=== PATIENT | female | born 2000 | race Caucasian/White ===

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

== ENCOUNTER 2018-08-05 11:12 | Emergency (ER) | payer MEDICAID, SELFPAY ==
[2018-08-05 11:13] VITALS: BP 115/66; PULSE 119; RESP 20; TEMP 36.8; O2SAT 96; BMI 21.9
[2018-08-05 11:19] VITALS: BP 108/65; PULSE 100; RESP 14; O2SAT 98
--- NOTE | 2018-08-05 11:52 | ED.DCSUM_ITS ---
- ER Visit Summary Date of Service: 08/05/18 Chief Complaint: Sore throat History of Present Illness: The patient is a 17 F who states that for the past 2 days she has had a sore throat. She notes subjective temperature and maximum routine at home of 99. She denies any cough. She denies any earache or runny nose. No she does note diarrhea or rashes. She does note generalized myalgias. She was seen in urgent care yesterday and states that she had a negative strep. She was prescribed Tylenol which she has not yet taken. She has been taking ibuprofen. She has been able to stay hydrated drinking water. Physical Examination: Afebrile vital signs are stable Gen: Well-nourished well-developed Head: Normocephalic atraumatic Eyes: Perrl EOMI ENT: TMs clear no rhinorrhea moist mucous membranes bilateral tonsillar enlargement erythema and exudate. No palatal petechiae. No retropharyngeal or peritonsillar abscess. No hot potato voice. No drooling. No trismus. Neck: Supple mildly tender anterior and posterior lymph nodes that are mobile and slightly enlarged. No JVD nontender CVS: Regular rate rhythm no murmurs normal S1-S2 Respiratory: No distress clear to auscultation bilaterally chest nontender Abdomen: Soft nontender nondistended normal bowel sounds no masses Back: Nontender Extremity: Nontender no edema Skin: Normal color no rash Neuro: alert orientated ?3 CN II-XII intact normal strength sensation reflexes gait cerebellar Psych: Normal affect normal mood Test Results: Throat culture was obtained. Emergency Department Course and Treatment: Patient will be started on azithromycin. I will give her a dose of Decadron here. Patient was advised if she is not improving she should be screened for mono. Return if worsening or concerns. Impression: 1. Acute exudative pharyngitis This note was generated with [employer] dictation software. It may contain incorrect words, spelling, and punctuation that were not noted in review of the chart prior to signing ED Disposition - Plan for ED Patient: Disposition: Home or Assisted Living Chief Complaint: Sore Throat Instructions: ED Strep Pharyngitis Poss Prescriptions: Azithromycin 500 mg PO DAILY 5 Days #5 tab Referrals: Emely Blanca MD [Primary Care Provider] - 1 Week if not improving
== END 2018-08-05 12:17 | disposition home or self-care (01) ==
LOC: ED 11:58
PROVIDERS: Emergency Provider Emergency Medicine
DX: J02.9 Acute pharyngitis, unspecified (principal); R59.0 Localized enlarged lymph nodes; R11.2 Nausea with vomiting, unspecified; M79.10 Myalgia, unspecified site
CPT/HCPCS: 87070; 87077; 99283

== ENCOUNTER 2019-03-31 00:34 | Emergency (ER) | payer MEDICAID, SELFPAY ==
[2019-03-31] VITALS (10 sets, daily range): BP systolic 113–127; BP diastolic 75–101; PULSE 70–111; RESP 13–18; TEMP 36.3–36.8; O2SAT 99–100; BMI 18.6
--- NOTE | 2019-03-31 00:41 | ED.VIS.GEN ---
History of Present Illness Chief Complaint: Overdose Informant: Patient Narrative: Walked into the emergency department. She stated that she abused Percocet and methamphetamines. She also stated that she abused marijuana. The patient has fleeting answers. She appears intoxicated. She is slow to respond. She answers yes to some questions and then no to the same questions later. She was dropped off by family member. Initially she stated that she was suicidal but then denied this. She has had drug abuse in the past. The patient is unsure why she is here. 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 Past Medical History - Allergies and Home Meds Allergies/Adverse Reactions: Allergies amoxicillin [Amoxicillin] Allergy (Verified 08/05/18 11:14) Unknown Primary Care Physician: Care Physician,No Primary [Primary Care Provider] - Prior records reviewed: Yes Past Medical History: - - Reviewed Surgical History: noncontributory Smoking Status: Never smoker Drugs: Marijuana, - - Methamphetamine, Percocet Review of Systems General: Denies: Chills, Fever, Sweats Eyes: Denies: Visual changes - bilaterally, Diplopia ENT: Denies: Rhinorrhea, Sore throat Cardiovascular: Denies: Chest pain, Palpitations Respiratory: Denies: Dyspnea, Cough, Dyspnea on exertion Gastrointestinal: Denies: Abdominal pain, Nausea, Vomiting, Diarrhea, Melena, Hematochezia Genitourinary: Denies: Dysuria, Hematuria, Frequency Musculoskeletal: Denies: Back pain, Extremity Pain Skin: Denies: Rash, Wounds Neurological: Denies: Headache, Weakness, Numbness Psych: Reports: - - see HPI Physical Exam Vital Signs/Narrative: Vital Signs Temp Pulse Resp BP Pulse Ox 03/31/19 00:36 97.4 F L 111 H 16 122/101 H 100 General: Well nourished, Well developed, No Acute Distress Head: Normocephalic, Atraumatic Eyes: Perrl, EOMI ENT: Moist mucous membranes, No rhinorrhea Neck: Supple, Nontender Cardiovascular: Regular rate, Regular rhythm, No murmurs Respiratory: No distress, CTA bilaterally, Chest nontender Abdomen: Soft, Nontender, Nondistended, Normal bowel sounds Back: Nontender, Normal Inspection Extremities: Nontender, No edema Skin: Normal color, No rash Neurological: Alert, Oriented x3, Cranial nerves II-XII grossly intact, Normal Strength, Normal Sensation Psychological: - - appears toxic aided and staring off into space. Answers questions intermittently. Negative for: Normal affect, Normal Mood Diagnostic/Tx/Re-eval - Medical Decision Making Patient given IV fluids. Lab work obtained. Lab work is positive for methamphetamines and cannabinoids. Opiates negative however. The patient remained difficult to interview throughout her stay. She was given 3 L of fluid. She was monitored in the emergency department. She remained quite sedate throughout her stay. She will be further evaluated when she wakes up. She will likely need a mental health consult. ED Disposition - Plan for ED Patient: Diagnosis: Drug intoxication with delirium Instructions: Drug Abuse Referrals: Care Physician,No Primary [Primary Care Provider] - [facility] [STAFF PHYSICIAN] -
[2019-03-31] MEDS: 0.9% Normal Saline 1,000 ML 1000 ML IV ×2 (00:56→02:15)
[2019-03-31 03:06] LABS: Absolute Lymphocyte Count 3.45 X10^3/ul (0.83-4.51); Absolute Neutrophil Count 5.9 X10^3/uL (2.0-7.7); Basophil# 0.03 X10^3/uL; Basophil% 0.3 % (0-1); Eosinophil# 0.11 X10^3/uL; Eosinophils% 1.1 % (0-5); Hematocrit 40.5 % (37-47); Hemoglobin 13.5 g/dl (12.0-15.0); Lymphocyte # 3.45 X10^3/ul (4.0); Lymphocyte % 33.3 % (19-41); Mean Corp Hgb Conc 33.3 g/gl (32-36); Mean Corpuscular Hgb 30.5 pg (27.0-32.0); Mean Corpuscular Volume 91.4 fL (81-99); Mean Platelet Vol. 10.7 fl (6.2-12.0); Monocyte# 0.86 X10^3/uL; Monocyte% 8.3 % (0-10); Neutrophil # 5.89 X10^3/uL (2.7-7.7); Neutrophil % 56.8 % (47-70); Platelet Count 294 K/mm3 (150-450); RBC Distribution Width CV 13.5 % (11.6-14.6); RBC Distribution Width SD 44.4 fl (35.1-43.9); Red Blood Count 4.43 M/mm3 (4.2-5.4); White Blood Count 10.4 K/mm3 (4.4-11.0)
[2019-03-31 03:09] LABS: POSITIVE COUNT NO; POSITIVE DIFFERENTIAL NO; POSITIVE MORPHOLOGY NO
--- NOTE | 2019-03-31 03:10 | ED.RN ---
PATIENT WAS INTO THE RESTROOM TWO TIMES TO TRY AND VOID AND SHE WAS UNABLE TO. DR. BOOKER WAS ASKED BY THIS NURSE IF PATIENT SHOULD BE STRAIGHT CATHED FOR HER URINE SPECIMEN AND HE SAID TO JUST GIVE HER A THIRD LITER OF NORMAL SALINE IF SHE HASN'T GONE YET.
[2019-03-31] MEDS: 0.9% Normal Saline 1,000 ML 999 ML IV (03:16)
[2019-03-31 04:06] LABS: Alcohol, Blood (Medical)-Serum < 3.0 mg/dL
[2019-03-31 04:07] LABS: Acetaminophen (Tylenol) Level < 2.0 ug/mL (10.0-30.0); Internal QC Validated? YES +Cl - CLEAR BKGD; Pregnancy, Serum, hCG Quali. NEGATIVE Negative
[2019-03-31 04:08] LABS: ALB/GLOB Ratio 1.1 RATIO (0.9-2.4); AST(SGOT) 14 U/L (15-37); Albumin, Serum 4.2 g/dL (3.2-5.0); Alkaline Phosphatase 64 U/L (45-117); BUN 13 mg/dL (7-18); BUN/Creat Ratio 14.3 RATIO (10-20); Calcium,Total 9.4 mg/dL (8.5-10.1); Creatinine, Serum 0.91 mg/dL (0.55-1.02); EST Glomerular Filtration Rate 84 mL/min (>60); Est Glom Filt Rate - Afr Amer 102 mL/min (>60); Estimated Creatinine Clearance 81.26 ml/min; Globulin 3.7 g/dL (2.2-4.2); Glucose 132 mg/dL (74-106); Protein, Total 7.9 g/dL (6.4-8.2)
[2019-03-31 04:09] LABS: Alanine Aminotransfer ALT/SGPT 17 U/L (13-56); Anion Gap 8 (5-15); Chloride 104 mmol/L (98-107); Potassium 3.7 mmol/L (3.5-5.1); Sodium Level 137 mmol/L (136-145)
[2019-03-31 04:30] LABS: Amphetamine Urine VISTA POSITIVE (<1000 ng/mL); Barbiturate Urine VISTA NEGATIVE (< 200 ng/mL); Benzodiazepine Urine VISTA NEGATIVE (< 200 ng/mL); Cocaine Urine VISTA NEGATIVE (< 300 ng/mL); Ecstacy Urine VISTA NEGATIVE (< 500 ng/mL); Methadone Urine VISTA NEGATIVE (< 300 ng/mL); PCP Urine VISTA NEGATIVE (< 25 ng/mL); THC Urine VISTA POSITIVE (< 50 ng/mL); Vista UDS pH Range 6
--- NOTE | 2019-03-31 04:35 | ED.RN ---
ALL LABS ARE BACK ON THE PATIENT. THIS NURSE ASKED DR. BOOKER IF HE WOULD LIKE US TO CALL CRISIS. HE SAID TO JUST WAIT TILL MORNING TO SEE IF SHE BECOMES MORE ALERT AND ABLE TO ANSWER QUESTIONS PRIOR TO BEING EVALUATED BY [facility].
--- NOTE | 2019-03-31 04:36 | ED.RN ---
PATIENT IS CURRENTLY SLEEPING. VITALS ARE STABLE. SITTER AT THE BEDSIDE.
--- NOTE | 2019-03-31 05:37 | ED.RN ---
DR. BOOKER MADE AWARE OF PATIENT HAVING SOME SHORT EPISODES OF TACHYCARDIA UP WARDS OF 130'S. HE SAID THAT HE WAS NOT WORRIED ABOUT THIS AT THIS TIME. HEART RATE RETURNS TO NORMAL SINUS RHYTHM. PATIENT IS CURRENTLY SLEEPING.
--- NOTE | 2019-03-31 10:05 | ED.RN ---
[facility] CALLED TO CHECK ON PATIENT. WILL CALL COME IN WHEN PATIENT I COHERENT
== END 2019-03-31 17:55 ==
PROVIDERS: Emergency Provider Emergency Medicine
DX: F15.121 Other stimulant abuse with intoxication delirium (principal); F12.121 Cannabis abuse with intoxication delirium; F19.121 Other psychoactive substance abuse with intoxication delirium
CPT/HCPCS: 80053; 80307; 80320; 80329; 84703; 85025; 96360; 96361; 99285; J7030; A4216; G0480

== ENCOUNTER 2019-09-05 01:06 | Emergency (ER) | payer MEDICAID, SELFPAY ==
[2019-03-31 00:36] VITALS: BMI 18.6
[2019-09-05 01:07] VITALS: BP 107/66; PULSE 100; RESP 17; TEMP 36.6; O2SAT 99; BMI 23.4
--- NOTE | 2019-09-05 01:20 | ED.VIS.GEN ---
History of Present Illness Chief Complaint: Sore Throat Informant: Patient Narrative: Presents with sore throat. Started earlier today. She is had mild frontal headache. She is been using Tylenol. Thinks she has strep throat. She has had this in the past. No fevers or chills. Hurts to swallow. 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 Denies: Rhinorrhea Cardiovascular: Denies: Chest pain, Palpitations Respiratory: Denies: Dyspnea, Cough, Dyspnea on exertion Gastrointestinal: Denies: Abdominal pain, Nausea, Vomiting, Diarrhea, Melena, Hematochezia Genitourinary: Denies: Dysuria, Hematuria, Frequency Musculoskeletal: Denies: Back pain, Extremity Pain Skin: Denies: Rash, Wounds Neurological: Denies: Headache, Weakness, Numbness Physical Exam Vital Signs/Narrative: Vital Signs Temp Pulse Resp BP Pulse Ox 09/05/19 01:07 97.8 F 100 17 107/66 99 General: Well nourished, Well developed, No Acute Distress Head: Normocephalic, Atraumatic Eyes: Perrl, EOMI ENT: Moist mucous membranes, No rhinorrhea, - - 2 Plus tonsils with redness bilateral Neck: Supple, Nontender Cardiovascular: Regular rate, Regular rhythm, No murmurs Respiratory: No distress, CTA bilaterally, Chest nontender Abdomen: Soft, Nontender, Nondistended, Normal bowel sounds Back: Nontender, Normal Inspection Extremities: Nontender, No edema Skin: Normal color, No rash Neurological: Alert, Oriented x3, Cranial nerves II-XII grossly intact, Normal Strength, Normal Sensation Psychological: Normal affect, Normal Mood Diagnostic/Tx/Re-eval - Medical Decision Making Given Omnicef and a dose of Decadron for tonsillitis. She will follow-up as an outpatient ED Disposition - Plan for ED Patient: Disposition: Home or Assisted Living Diagnosis: Tonsillitis Instructions: ED Tonsillitis Prescriptions: Cefdinir [Omnicef [equiv]] 300 mg PO Q12H #14 cap Prescription Printed Referrals: Amarilis Berry, CHAIR CAR DRIVER-C [Primary Care Provider] -
[2019-09-05] MEDS: dexAMETHasone 4 MG Tablet 8 MG PO (01:43)
== END 2019-09-05 01:43 | disposition home or self-care (01) ==
PROVIDERS: Emergency Provider Emergency Medicine; Family Provider Nurse Practitioner Family; PCP Nurse Practitioner Family
DX: J03.90 Acute tonsillitis, unspecified (principal)
CPT/HCPCS: 99283

== ENCOUNTER 2019-11-13 10:48 | Emergency (ER) | payer MEDICAID, SELFPAY ==
[2019-11-13 10:49] VITALS: BP 144/67; PULSE 98; RESP 17; TEMP 37; O2SAT 96; BMI 20.6
--- NOTE | 2019-11-13 11:07 | ED.VISSUMM ---
- ER Visit Summary Date of Service: 11/13/19 Chief Complaint: Left long finger swollen and painful History of Present Illness: The patient is a 19 F history of asthma and drug abuse including smoking marijuana and methamphetamines. Denies any IV drug abuse. Patient was seen in urgent care today. Yesterday she felt having swelling of the left long finger and has chronic rashes on the back of her hands which she thinks is from bleach from washing it. Denies any fever or chills. She absolutely denies IV drug abuse. Physical Examination: Appearing 19-year-old no acute distress. Vital signs are stable and afebrile. Temperature 98. H EENT exam unremarkable. Neck nontender. Lungs clear to auscultation bilaterally. Heart regular rhythm no murmur. Abdomen soft nontender. Extremities moves all 4. Neurovascular intact. The dorsum of both hands have rashes consistent with contact dermatitis. I do not see any track riojas. The left long finger is mildly swollen and tender. There is no flexor extensor tenosynovitis. She does bite her nails and I think this is a soft tissue infection from that. There is no lymphangitic streaking in the forearm and there is no axillary lymphadenopathy. The skin on the back of both her hands along with a contact dermatitis is dry. Neurologically she is awake alert with no focal motor deficits. Test Results: None Emergency Department Course and Treatment: Patient has a soft tissue infection of the left long finger secondary to biting her nails. She also has a contact dermatitis to both hands believed. She will be started on clindamycin. She has a stated penicillin allergy. She will be given a dose of clindamycin in the emergency department. Treatment Plan: Clindamycin 4 times daily. Return if worse. Follow-up to ensure this is improving. Disposition: dc Impression: Left long finger soft tissue infection secondary to nail biting Contact dermatitis dorsum of both hands This note was generated with [employer] dictation software. It may contain incorrect words, spelling, and punctuation that were not noted in review of the chart prior to signing ED Disposition - Plan for ED Patient: Referrals: Amarilis Berry NP-C [Primary Care Provider] -
--- NOTE | 2019-11-13 11:10 | ED.DEP ---
ED Disposition - Plan for ED Patient: Disposition: Home or Assisted Living Instructions: Contact Dermatitis, Cellulitis Prescriptions: Clindamycin [Cleocin] 300 mg PO 4X/DAY 10 Days #80 cap Prescription Printed Referrals: Amarilis Berry NP-C [Primary Care Provider] - 3-5 Days if not improving Additional Instructions: Rash on the back your hands is from contact dermatitis or reaction dry skin to chemicals and bleach. The left long finger is infected at the soft tissue infection due to biting her nails. Clindamycin 300 mg pills 4 times a day for 10 days. Follow-up to ensure this is improving or return emergency department if getting worse moving up in your forearm or you have a fever or looks a lot worse.
[2019-11-13] MEDS: Clindamycin HCl 150 MG Capsule 300 MG PO (11:27)
== END 2019-11-13 11:31 | disposition home or self-care (01) ==
PROVIDERS: Emergency Provider Emergency Medicine; PCP Nurse Practitioner Family; Referring Provider Nurse Practitioner Family
DX: L25.9 Unspecified contact dermatitis, unspecified cause (principal); L08.9 Local infection of the skin and subcutaneous tissue, unspecified; F15.10 Other stimulant abuse, uncomplicated; F12.10 Cannabis abuse, uncomplicated; J45.909 Unspecified asthma, uncomplicated
CPT/HCPCS: 99283

== ENCOUNTER 2019-12-20 12:57 | Emergency (ER) | payer MEDICAID, SELFPAY ==
[2019-12-20 12:57] VITALS: BP 111/67; PULSE 106; RESP 16; TEMP 37.2; BMI 20.8
[2019-12-20 13:26] VITALS: BP 113/74; PULSE 93; RESP 16; O2SAT 97
--- NOTE | 2019-12-20 13:53 | ED.VIS.GEN ---
History of Present Illness Chief Complaint: Sore Throat Informant: Patient Narrative: Patient states that she has had a runny nose and a cough for couple weeks but that is improving. Yesterday she developed a sore throat and throat swelling. She notes painful swallowing no change in voice. She also states that a recent sexual partner informed her that they have gonorrhea. While she does not have any symptoms of gonorrhea she would like to be tested. She notes subjective fevers. Past Medical History - Allergies and Home Meds Allergies/Adverse Reactions: Allergies amoxicillin [Amoxicillin] Allergy (Verified 12/20/19 12:59) Unknown Primary Care Physician: Amarilis Berry NP-C [Primary Care Provider] - Surgical History: noncontributory Smoking Status: Former smoker Review of Systems General: Reports: Chills, Fever, Subjective. Denies: Sweats Eyes: Denies: Visual changes - bilaterally, Diplopia ENT: Reports: Rhinorrhea, Sore throat Cardiovascular: Denies: Chest pain, Palpitations Respiratory: Denies: Dyspnea, Cough, Dyspnea on exertion Gastrointestinal: Denies: Abdominal pain, Nausea, Vomiting, Diarrhea, Melena, Hematochezia Genitourinary: Denies: Dysuria, Hematuria, Frequency Musculoskeletal: Denies: Back pain, Extremity Pain Skin: Denies: Rash, Wounds Neurological: Denies: Headache, Weakness, Numbness Physical Exam Vital Signs/Narrative: Vital Signs Temp Pulse Resp BP Pulse Ox 12/20/19 13:26 93 16 113/74 97 12/20/19 12:57 98.9 F 106 H 16 111/67 Inital Vital Signs reviewed: Yes General: Well nourished, Well developed, No Acute Distress Head: Normocephalic, Atraumatic Eyes: Perrl, EOMI ENT: Moist mucous membranes, No rhinorrhea, - - There is bilateral tonsillar enlargement with erythema and exudates. Neck: Supple, Nontender, No lymphadenopathy - There are anterior lymph nodes that are mildly tender and less than 1 cm and freely mobile Cardiovascular: Regular rate, Regular rhythm, No murmurs Respiratory: No distress, CTA bilaterally, Chest nontender Abdomen: Soft, Nontender, Nondistended, Normal bowel sounds Back: Nontender, Normal Inspection Extremities: Nontender, No edema Skin: Normal color, No rash Neurological: Alert, Oriented x3, Cranial nerves II-XII grossly intact, Normal Strength, Normal Sensation Psychological: Normal affect, Normal Mood Diagnostic/Tx/Re-eval - Medical Decision Making Throat culture will be obtained. Patient will be started on antibiotics. We will order a GC and chlamydia test that she does not have to wait for the results. If positive we will certainly call her. Patient is comfortable with this plan. ED Disposition - Plan for ED Patient: Disposition: Home or Assisted Living Diagnosis: Pharyngitis, STD exposure Instructions: PHARYNGITIS, Report Pending Prescriptions: Azithromycin 500 mg PO DAILY #5 tab Transmission Status: Pending to [facility] Referrals: Amarilis Berry, OUTBOUND SALES EXECUTIVE-C [Primary Care Provider] - As Needed
[2019-12-20] MEDS: dexAMETHasone 10 MG/ML Vial PO.IVFORM (14:17)
[2019-12-20 16:32] LABS: Chlamydia Trachomatis by PCR Negative (Negative); Probe Check PASS
[2019-12-20 16:38] LABS: Neisserai gonorrhoeae by PCR Positive (Negative)
--- NOTE | 2019-12-20 18:00 | ED.RN ---
THIS NURSE CONTACTED PT TO NOTIFY OF LAB RESULTS. PT INSTRUCTED TO RETURN FOR TREATMENT
== END 2019-12-20 14:19 | disposition home or self-care (01) ==
PROVIDERS: Emergency Provider Emergency Medicine; PCP Nurse Practitioner Family
DX: J02.9 Acute pharyngitis, unspecified (principal); R05 Cough; J34.89 Other specified disorders of nose and nasal sinuses; Z20.2 Contact with and (suspected) exposure to infections with a predominantly sexual mode of transmission; Z87.891 Personal history of nicotine dependence
CPT/HCPCS: 87070; 87077; 87491; 87591; 99282

== ENCOUNTER 2019-12-23 17:26 | Emergency (ER) | payer MEDICAID, SELFPAY ==
[2019-12-23 17:27] VITALS: BP 139/78; PULSE 139; RESP 18; TEMP 36.9; O2SAT 98; BMI 20.8
--- NOTE | 2019-12-23 17:49 | ED.DCSUM_ITS ---
History of Present Illness Chief Complaint: General Illness Detail of Chief Complaint: Wants treatment for gonorrhea and strep throat Informant: Patient Onset: Days Narrative: She presents with sore throat for the past 3 days. She was seen here on the and had a positive rapid strep. Prescription for Zithromax was sent to the pharmacy the patient has not picked it up. She also was seen that day for exposure to gonorrhea. Her test came back positive but she continues to have no symptoms. She reports some mild subjective fever. She denies dysuria or vaginal discharge. - Past Medical History (1) Depression with anxiety Status: Chronic Past Medical History - Allergies and Home Meds Allergies/Adverse Reactions: Allergies amoxicillin [Amoxicillin] Allergy (Verified 12/23/19 17:29) Unknown Primary Care Physician: Amarilis Berry NP-C [Primary Care Provider] - Prior records reviewed: Yes Surgical History: noncontributory Smoking Status: Former smoker Review of Systems General: Reports: Fever, Subjective. Denies: Chills Eyes: Denies: Visual changes - bilaterally ENT: Reports: Sore throat. Denies: Bilateral ear pain Cardiovascular: Denies: Chest pain Respiratory: Denies: Dyspnea, Cough Gastrointestinal: Denies: Abdominal pain, Nausea, Vomiting, Diarrhea Genitourinary: Denies: Dysuria, Hematuria, Frequency Musculoskeletal: Denies: Extremity Pain Skin: Denies: Rash Neurological: Denies: Headache Allergy: Denies: Uticaria Physical Exam Vital Signs/Narrative: Vital Signs Temp Pulse Resp BP Pulse Ox 12/23/19 17:27 98.4 F 139 H 18 139/78 H 98 Inital Vital Signs reviewed: Yes General: Well nourished, Well developed Head: Normocephalic ENT: Moist mucous membranes, - - 3+ tonsils with exudate noted on the left. Uvula midline. Neck: Supple, - - Bilateral cervical lymphadenopathy. Cardiovascular: Regular rate, Regular rhythm Respiratory: No distress, CTA bilaterally Abdomen: Soft, Nontender Extremities: Nontender Skin: Normal color Diagnostic/Tx/Re-eval - Medical Decision Making Test results from the were reviewed. Strep a is positive and gonorrhea is positive. She will receive Rocephin IM here. She has a documented allergy to amoxicillin, however has received Keflex in the past. She is also given Zithromax here. She now requests an antibiotic for her throat be sent to a different pharmacy. I will send clindamycin to [facility] for her. ED Disposition - Plan for ED Patient: Disposition: Home or Assisted Living Diagnosis: Gonorrhea, Strep throat Instructions: Strep Throat, CERVICITIS (STD), Treated Prescriptions: Clindamycin [Cleocin] 300 mg PO TID #60 cap Transmission Status: Sent to [facility] #30 Referrals: Amarilis Berry, BIN CLEANER-C [Primary Care Provider] -
[2019-12-23] MEDS: Azithromycin 250 MG Tablet 1000 MG PO (18:16)
[2019-12-23] MEDS: Ondansetron ODT 4 MG Tablet PO (19:00)
[2019-12-23] MEDS: Ceftriaxone 500 MG Vial 250 MG IM (19:04)
[2019-12-23 19:48] VITALS: RESP 18
== END 2019-12-23 19:51 | disposition home or self-care (01) ==
LOC: ED 18:02
PROVIDERS: Emergency Provider Emergency Medicine; PCP Nurse Practitioner Family
DX: J02.0 Streptococcal pharyngitis (principal); A54.9 Gonococcal infection, unspecified; Z87.891 Personal history of nicotine dependence
CPT/HCPCS: 96372; 99283

== ENCOUNTER 2020-01-04 11:45 | Observation (INO) | payer MEDICAID, SELFPAY ==
[2020-01-04 11:47] VITALS: BP 114/67; PULSE 119; RESP 18; TEMP 36.1; O2SAT 95; BMI 20.5
--- NOTE | 2020-01-04 12:05 | EKG12_ITS ---
Test Reason : ABD PAIN Blood Pressure : / mmHG Vent. Rate : 077 BPM Atrial Rate : 077 BPM P-R Int : 106 ms QRS Dur : 090 ms QT Int : 388 ms P-R-T Axes : -03 069 014 degrees QTc Int : 439 ms Sinus rhythm with short CA Nonspecific T wave abnormality Abnormal ECG Confirmed by ANDREW ISRAEL, MARKELL ([id number]), restaurant expeditor PÉREZ DEVLIN ([id number]) on 01/05/2020 1:39:01 PM Referred By: ALFONSO Confirmed By:MARKELL MORALES MD
--- NOTE | 2020-01-04 12:05 | CT_ITS ---
STUDY: CT ABDOMEN AND PELVIS WITH CONTRAST REASON FOR EXAM: Female, 19 years old. ABD PAIN X 1 WEEK JAUNDICE RADIATION DOSAGE (If Supplied By Facility): CTDIvol = ( 9.725 ) mGy, DLP = ( 333.33 ) mGycm TECHNIQUE: Transaxial images were obtained from the dome of the diaphragm to the symphysis pubis without oral contrast. IV 100mL Isovue-300 was administered. Sagittal and coronal images were reconstructed. Individualized dose optimization techniques were used for this CT. COMPARISON: None. FINDINGS: The visualized lung bases are unremarkable. The visualized portions of the heart are within normal limits. There is evidence of a periportal edema. Mild degree of gallbladder wall thickening. There is evidence of a pericholecystic fluid. Increased markings are seen in the surrounding fat. There is no intra of cholelithiasis on this examination. Correlation with ultrasound of the right upper quadrant is recommended. There is mild splenomegaly. Normal pancreas. Normal bilateral adrenal glands. Normal right kidney. Normal left kidney. Normal visualized stomach. Normal small intestine. Normal colon. The appendix is visualized and appears normal. Normal abdominal aorta. Normal inferior vena cava. Normal retroperitoneum. Normal urinary bladder. Minimal amount of free fluid is seen in the cul-de-sac. Follicles are seen in both ovaries. Normal abdominal wall. Normal osseous structures. CT/Abdomen/Pelvis W IV Cont ONLY IMPRESSION: Mild degree of periportal edema in the liver with evidence of a pericholecystic fluid and thickening of the gallbladder wall. Correlation with the ultrasound of the right upper quadrant is recommended for further evaluation. Electronically Signed: Dagoberto Saenz, at 13:30 EDT , Service support ,
--- NOTE | 2020-01-04 12:10 | ED.DCSUM_ITS ---
History of Present Illness Chief Complaint: Abd Pain Informant: Patient - Abdominal Pain/Flank Pain Onset: Days Context: Gradual Onset Location: [facility] Narrative: Patient is a 19-year-old female with history of methamphetamine abuse, asthma and recent treatment for gonorrhea presenting with jaundice. Patient states her family notes that she been looking more yellow over the past 2 days. Patient states she is been feeling itchy for this amount of time is also noticed that her bowel movements have been park aide in color. Patient notes for the past week she been having abdominal pain especially in her right upper quadrant. She states it was really bad about 4 days ago. The pain has since improved significantly. She has had decreased appetite and been eating and drinking less. She denies any diarrhea. She currently denies any abdominal pain. She denies any fever or chills. She denies any chest pain, shortness of breath or difficulty breathing. She denies any history of IV drug use. She denies any known history of hepatitis. She does not drink any significant alcohol. She last used methamphetamines about 1 month ago. She states she only ever either snorted or smoked it. She states she had mono in middle school. Past Medical History - Allergies and Home Meds Allergies/Adverse Reactions: Allergies amoxicillin [Amoxicillin] Allergy (Verified 01/04/20 11:47) NOT SURE, WAS A BABY Primary Care Physician: Amarilis Berry NP-C [Primary Care Provider] - Past Medical History: - - asthma Surgical History: noncontributory Lives: With Family Smoking Status: Former smoker Alcohol: Occasional Drugs: Marijuana, - - Meth Review of Systems General: Reports: Malaise. Denies: Chills, Fever, Sweats Eyes: Denies: Visual changes - bilaterally, Diplopia ENT: Denies: Rhinorrhea, Sore throat Cardiovascular: Denies: Chest pain, Palpitations Respiratory: Denies: Dyspnea, Cough, Dyspnea on exertion Gastrointestinal: Reports: Abdominal pain, Nausea, Constipation. Denies: Vomiting, Diarrhea, Melena, Hematochezia Genitourinary: Reports: - - No vaginal discharge or bleeding . Denies: Dysuria, Hematuria, Frequency Musculoskeletal: Denies: Back pain, Extremity Pain Skin: Reports: - - Yellow, itchy skin. Denies: Rash, Wounds Neurological: Denies: Headache, Weakness, Numbness Physical Exam Vital Signs/Narrative: Vital Signs Temp Pulse Resp BP Pulse Ox 01/04/20 11:47 96.9 F L 119 H 18 114/67 95 Inital Vital Signs reviewed: Yes General: Well nourished, Well developed, No Acute Distress Head: Normocephalic, Atraumatic Eyes: Perrl, EOMI, Scleral icterus ENT: Moist mucous membranes, No rhinorrhea, TM's clear Neck: Supple, Nontender Cardiovascular: Regular rate, Regular rhythm, No murmurs Respiratory: No distress, CTA bilaterally, Chest nontender Abdomen: Soft, Nontender, Nondistended, Normal bowel sounds, Hepatomegaly Back: Nontender, Normal Inspection Extremities: Nontender, No edema Skin: No rash, Jaundice Neurological: Alert, Oriented x3, Cranial nerves II-XII grossly intact, Normal Strength, Normal Sensation Psychological: Normal affect, Normal Mood Diagnostic/Tx/Re-eval CT: Abdomen and Pelvis Clinical Impression(s) from Imaging Studies Abdomen/Pelvis CT 01/04/20 12:05 IMPRESSION: Mild degree of periportal edema in the liver with evidence of a pericholecystic fluid and thickening of the gallbladder wall. Correlation with the ultrasound of the right upper quadrant is recommended for further evaluation. Electronically Signed: Dagoberto Saenz, at 13:30 EDT , Service support , Gallbladder Ultrasound 01/04/20 13:32 IMPRESSION: Contracted gallbladder with slightly thickened gallbladder wall. Electronically Signed: Dagoberto Saenz, at 14:49 EDT , Service support , Laboratory Data 01/04/20 01/04/20 01/04/20 11:57 11:57 11:57 WBC 8.5 RBC 4.77 Hgb 13.7 Hct 42.1 MCV 88.3 MCH 28.7 MCHC 32.5 RDW Std Deviation 49.9 H RDW Coeff of Jus 15.6 H Plt Count 354 MPV 10.9 Immature Gran % (Auto) 1.100 H Neut % (Auto) 56.0 Lymph % (Auto) 33.0 [place] % (Auto) 8.5 Eos % (Auto) 0.6 Baso % (Auto) 0.8 Absolute Neuts (auto) 4.8 Absolute Lymphs (auto) 2.82 Nucleated RBC % 0 Reactive Lymphocytes 1+ PT 14.2 INR 1.1 APTT 29.8 Sodium 134 L Potassium 3.7 Chloride 96 L Carbon Dioxide 32.0 Anion Gap 6 BUN 6 L Creatinine 0.68 Estim Creat Clear Calc 122.51 Est GFR (MDRD) Af Amer 139 Est GFR (MDRD) Non-Af 115 BUN/Creatinine Ratio 8.8 L Glucose 121 H Calcium 8.9 Total Bilirubin 7.80 H Direct Bilirubin 6.78 H AST 998 H ALT 1917 H Alkaline Phosphatase 369 H Total Protein 7.7 Albumin 3.1 L Globulin 4.6 H Lipase 133 Urine Color Urine Clarity Urine pH Ur Specific [place] Urine Protein Urine Glucose (UA) Urine Ketones Urine Occult Blood Urine Nitrite Urine Bilirubin Urine Urobilinogen Ur Leukocyte Esterase Urine RBC Urine WBC Ur Squamous Epith Cells Amorphous Sediment Urine Bacteria Urine Mucus Urine Test Urine Opiates Screen Urine Methadone Screen Ur Barbiturates Screen Ur Phencyclidine Scrn Ur Amphetamines Screen U Methamphetamin-MDMA U Benzodiazepines Scrn Urine Cocaine Screen U Cannabinoids Screen Ur Drug Screen Comment Monoscreen 01/04/20 01/04/20 01/04/20 11:57 11:57 11:57 WBC RBC Hgb Hct MCV MCH MCHC RDW Std Deviation RDW Coeff of Jus Plt Count MPV Immature Gran % (Auto) Neut % (Auto) Lymph % (Auto) [place] % (Auto) Eos % (Auto) Baso % (Auto) Absolute Neuts (auto) Absolute Lymphs (auto) Nucleated RBC % Reactive Lymphocytes PT INR APTT Sodium Potassium Chloride Carbon Dioxide Anion Gap BUN Creatinine Estim Creat Clear Calc Est GFR (MDRD) Af Amer Est GFR (MDRD) Non-Af BUN/Creatinine Ratio Glucose Calcium Total Bilirubin Direct Bilirubin AST ALT Alkaline Phosphatase Total Protein Albumin Globulin Lipase Urine Color Alpa Urine Clarity Sl. Cloudy Urine pH 6.0 Ur Specific [place] 1.020 Urine Protein 30 H Urine Glucose (UA) Normal Urine Ketones Negative Urine Occult Blood 10 H Urine Nitrite Negative Urine Bilirubin 6 H Urine Urobilinogen 8 H Ur Leukocyte Esterase 25 H Urine RBC 0-5 SEEN Urine WBC 0-5 SEEN Ur Squamous Epith Cells 0-5 SEEN Amorphous Sediment 1+ URATE Urine Bacteria 2+ Urine Mucus 0 SEEN Urine Test Negative Urine Opiates Screen Urine Methadone Screen Ur Barbiturates Screen Ur Phencyclidine Scrn Ur Amphetamines Screen U Methamphetamin-MDMA U Benzodiazepines Scrn Urine Cocaine Screen U Cannabinoids Screen Ur Drug Screen Comment Monoscreen Negative 01/04/20 11:57 WBC RBC Hgb Hct MCV MCH MCHC RDW Std Deviation RDW Coeff of Jus Plt Count MPV Immature Gran % (Auto) Neut % (Auto) Lymph % (Auto) [place] % (Auto) Eos % (Auto) Baso % (Auto) Absolute Neuts (auto) Absolute Lymphs (auto) Nucleated RBC % Reactive Lymphocytes PT INR APTT Sodium Potassium Chloride Carbon Dioxide Anion Gap BUN Creatinine Estim Creat Clear Calc Est GFR (MDRD) Af Amer Est GFR (MDRD) Non-Af BUN/Creatinine Ratio Glucose Calcium Total Bilirubin Direct Bilirubin AST ALT Alkaline Phosphatase Total Protein Albumin Globulin Lipase Urine Color Urine Clarity Urine pH Ur Specific [place] Urine Protein Urine Glucose (UA) Urine Ketones Urine Occult Blood Urine Nitrite Urine Bilirubin Urine Urobilinogen Ur Leukocyte Esterase Urine RBC Urine WBC Ur Squamous Epith Cells Amorphous Sediment Urine Bacteria Urine Mucus Urine Test Urine Opiates Screen NEGATIVE Urine Methadone Screen NEGATIVE Ur Barbiturates Screen NEGATIVE Ur Phencyclidine Scrn NEGATIVE Ur Amphetamines Screen NEGATIVE U Methamphetamin-MDMA NEGATIVE U Benzodiazepines Scrn NEGATIVE Urine Cocaine Screen NEGATIVE U Cannabinoids Screen POSITIVE H Ur Drug Screen Comment Monoscreen - Rhythm Strip Rhythm Strip: Sinus Rhythm Rate: 77 Ectopy: None - EKG Initial EKG Interpretation: Sinus Rhythm, - - Sinus rhythm at a rate of 77 [place] interval 106 QRS 90 QTc [address] segments - Medical Decision Making Patient is a 19-year-old female presenting with jaundice. Patient abdominal pain this last week but her pain is improved over the past 2 days. She denies any IV drug use or significant alcohol use. Patient does have an elevated direct bilirubinemia. Patient also has a significant transaminitis. Abdomen is relatively soft and nontender. CT of abdomen pelvis initially obtained which shows pericholecystic fluid as well as dilation of the hepatic venous system. Ultrasound is recommended. This is obtained which shows only very mildly thickened gallbladder wall however the gallbladder is contracted and no pericholecystic fluid. Normal common bile duct. Case is discussed initially w [facility] surgery on-call, Dr. Shields, feels that likely this is viral and not a surgical case. He does state that if there is further concern on the floor, medicine can consult Dr. Talbot. I will patient does have signs of inflammation of the liver she does not have laboratory findings consistent with liver failure. Discussed the case with Dr. Rashmi Grant who will admit for acute hepatitis. Patient is given a liter fluid in the emergency room. She is stable for the general medical floor at time of disposition. She is agreeable with disposition and plan. ED Disposition - Plan for ED Patient: Disposition: Acute Care Hospital [facility] Diagnosis: Acute hepatitis, Total bilirubin, elevated Referrals: Amarilis Berry, [employer] WORKER-C [Primary Care Provider] -
[2020-01-04 12:23] LABS: Mucous, Urine 0 SEEN /hpf (<or=2+)
[2020-01-04] MEDS: 0.9% Normal Saline 1,000 ML 1000 ML IV (12:24)
[2020-01-04] MEDS: Ondansetron 4 MG/2 ML Vial IV (12:24)
[2020-01-04 12:25] LABS: Absolute Lymphocyte Count 2.82 X10^3/uL (0.83-4.51); Absolute Neutrophil Count 4.8 X10^3/uL (2.0-7.7); Basophil# 0.07 X10^3/uL; Basophil% 0.8 % (0-1); Eosinophil# 0.05 X10^3/uL; Eosinophils% 0.6 % (0-5); Hematocrit 42.1 % (37-47); Hemoglobin 13.7 g/dL (12.0-15.0); Lymphocyte # 2.82 X10^3/ul (4.0); Mean Corp Hgb Conc 32.5 g/dL (32-36); Mean Corpuscular Hgb 28.7 pg (27.0-32.0); Mean Corpuscular Volume 88.3 fL (81-99); Mean Platelet Vol. 10.9 fl (6.2-12.0); Monocyte# 0.73 X10^3/uL; Monocyte% 8.5 % (0-10); NRBC Flagged by Analyzer 0 % (0-5); Neutrophil # 4.78 X10^3/uL (2.7-7.7); POSITIVE MORPHOLOGY YES; Platelet Count 354 K/mm3 (150-450); RBC Distribution Width CV 15.6 % (11.6-14.6); RBC Distribution Width SD 49.9 fl (35.1-43.9); Red Blood Count 4.77 M/mm3 (4.2-5.4); White Blood Count 8.5 K/mm3 (4.4-11.0)
[2020-01-04 12:27] LABS: Differential Indicated SCAN CRITERIA MET
[2020-01-04 12:28] LABS: Internal QC Validated? YES +Cl - CLEAR BKGD; Pregnancy, Urine Negative Negative
[2020-01-04 12:31] LABS: International Normalized Ratio 1.1; Prothrombin Time (Protime)PT. 14.2 SECONDS (11.7-14.9)
[2020-01-04 12:32] LABS: Partial Thromboplast Time 29.8 Seconds (24.1-36.2)
[2020-01-04 12:33] LABS: Color, Urine Amber (Yellow); Glucose, Dipstick Normal (Normal); Ketone-Dipstick Negative (Negative); Leukocyte Esterase-Dipstick 25 /ul (Negative); Nitrite-Dipstick Negative (Negative); Occult Blood-Urine 10 /ul (Negative); Protein-Dipstick 30 mg/dl (Negative); Urine Clarity Sl. Cloudy (Clear); Urine Urobilinogen 8 mg/dl (Normal)
[2020-01-04 12:44] LABS: AST(SGOT) 998 U/L (15-37); Alanine Aminotransfer ALT/SGPT 1917 U/L (13-56); Albumin, Serum 3.1 g/dL (3.2-5.0); Alkaline Phosphatase 369 U/L (45-117); Anion Gap 6 (5-15); BUN 6 mg/dL (7-18); BUN/Creat Ratio 8.8 RATIO (10-20); Bilirubin, Direct 6.78 mg/dL (0.00-0.30); Calcium,Total 8.9 mg/dL (8.5-10.1); Chloride 96 mmol/L (98-107); Creatinine, Serum 0.68 mg/dL (0.55-1.02); EST Glomerular Filtration Rate 115 mL/min (>60); Est Glom Filt Rate - Afr Amer 139 mL/min (>60); Estimated Creatinine Clearance 122.51 ml/min; Globulin 4.6 g/dL (2.2-4.2); Glucose 121 mg/dL (74-106); Lipase 133 U/L (73-393); Potassium 3.7 mmol/L (3.5-5.1); Protein, Total 7.7 g/dL (6.4-8.2); Sodium Level 134 mmol/L (136-145)
[2020-01-04 12:52] LABS: Red Blood Cells-Urine 0-5 SEEN /hpf (0-5); Urine Bilirubin Dipstick 6 mg/dL (Negative)
[2020-01-04 12:53] LABS: Amorphous Sediment 1+ URATE; Bacteria 2+ /hpf (None Seen); Squamous Epithelial Cells - UA 0-5 SEEN /hpf (5-10); White Blood Cells 0-5 SEEN /hpf (0-5)
[2020-01-04 12:56] LABS: Reactive Lymphocyte 1+
[2020-01-04 13:04] LABS: Internal QC Validated? YES +Cl - CLEAR BKGD; Monotest Negative (Negative)
[2020-01-04 13:15] LABS: Amphetamine Urine VISTA NEGATIVE (<1000 ng/mL); Barbiturate Urine VISTA NEGATIVE (< 200 ng/mL); Benzodiazepine Urine VISTA NEGATIVE (< 200 ng/mL); Cocaine Urine VISTA NEGATIVE (< 300 ng/mL); Ecstacy Urine VISTA NEGATIVE (< 500 ng/mL); Methadone Urine VISTA NEGATIVE (< 300 ng/mL); PCP Urine VISTA NEGATIVE (< 25 ng/mL); THC Urine VISTA POSITIVE (< 50 ng/mL); Vista UDS pH Range 6
--- NOTE | 2020-01-04 13:32 | US_ITS ---
STUDY: ABDOMINAL ULTRASOUND - RIGHT UPPER QUADRANT REASON FOR VISIT: Female, 19 years old RUQ PAIN TECHNIQUE: Ultrasound evaluation of the right upper quadrant was performed with real-time and static colin-scale imaging. TECHNICAL QUALITY: Adequate. COMPARISON: Comparison is made with prior CT scan of the pelvis done earlier in the day. FINDINGS: Liver: The liver measures 16.0 cm. There is normal echogenicity of the liver. The bile ducts are within normal limits. There is hepatic color flow. The direction of portal flow is hepatopetal. There is no demonstrated mass lesion. Gallbladder: There is a contracted gallbladder. The gallbladder wall is thickened and measures 4.0 mm. There is a negative sonographic Jung''s sign. There is no pericholecystic fluid. There are no gallstones. Common Bile Duct (C.B.D.): The common bile duct measures 3.1 mm. Pancreas: Normal size of the head, body and tail of the pancreas. There is normal echogenicity of the pancreas. There is no demonstrated pancreatic mass or cyst. Right Kidney: Normal size of the right kidney. The right kidney measures 10.8 cm x 5.7 cm by 4.4 cm. Normal renal cortex. The right cortex measures 1.9 cm. There is no demonstrated renal mass or cyst. There is no right hydronephrosis. US/Gallbladder IMPRESSION: Contracted gallbladder with slightly thickened gallbladder wall. Electronically Signed: Dagoberto Saenz, at 14:49 EDT , Service support ,
--- NOTE | 2020-01-04 15:08 | NURSING ---
DR RODGERS FOR DR AMADO
--- NOTE | 2020-01-04 15:18 | HP.PCM_ITS ---
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 (4) Depression with anxiety Status: Chronic (5) Former tobacco use Status: Chronic History of Present Illness Date of Admission: 01/04/20 Chief Complaint: Abdominal pain, jaundice The patient is a 19 y/o F w/ PMHx: Anxiety and Depression, History of Polysubstance abuse currently admitting to methampetamine snorted and smoked with denied IV drug abuse, Cannabis use, Former Tobacco use, Asthma who presents to the [facility] ED on 01/04/20 with history of recent treatment for gonorrhea with a one-week history of abdominal pain especially in the right upper quadrant more severe approximately 4 to 5 days prior with abnormal lightening of her stools as well as onset pruritus diffusely and yellowing of her skin over the last 48 hours with decreased appetite prompting family to encourage her to present to the ED. Patient does note that the abdominal pain has subsided over the last 2 to 3 days and she does still have nausea but no emesis and following Zofran in the ED is asking for food. Patient denies significant alcohol intake and again denies any IV drug abuse history. She notes last usage of methamphetamines was approximately 1 month prior and again she only snorts or smokes that she notes. Work-up in the ED included T 96.9, heart rate 119, BP 114/67, respiratory rate 18, 95% room air, CBC with WC 8.5, hemoglobin 13.7, platelet 354 with increased immature granulocytes, unremarkable coags, CMP with sodium 134, chloride 96, glucose 121, total bilirubin 7.80, direct bilirubin 6.78, AST/ALT 998/1917, alk phos 367, lipase 133, urinalysis with specific gravity 1.020, protein 30, occult blood 10, 8 bilirubin 6, urobilinogen 8, leukocyte esterase 25, RBC 0-5, WBC 0- 5, squamous epithelial cells 0-5, urine bacteria 2+, UDS with positive cannabis, negative mono screen, pending hepatitis panel, CT abdomen and pelvis with mild degree of periportal edema in the liver with evidence of a pericholecystic fluid and thickening with gallbladder wall, follow-up gallbladder ultrasound with contracted gallbladder with slightly thickened gallbladder wall. In the ED patient ministered normal saline and Zofran 4 mg IV x1. Past Medical History Past Medical History (Chronic Problems): Chronic Problems (Last Updated 06/03/18 @ 14:51 by Mirela De La Garza) Former tobacco use (Chronic) Drug abuse in remission (Chronic) Depression with anxiety (Chronic) Medical History: Medical History (Last Updated 06/03/18 @ 14:51 by Mirela De La Garza) History of pneumonia Z87.01 age of 1 History of substance abuse Z87.898 last use 04/09/18 Asthma J45.909 Allergies amoxicillin [Amoxicillin] Allergy (Verified 01/04/20 11:47) NOT SURE, WAS A BABY Home Medications: Ambulatory Orders Medication Instructions Recorded Clindamycin [Cleocin] 300 mg PO TID 01/04/20 Surgical History: no surgical history Psychiatric History: No pertinent psych hx 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 Alcohol: Sober - Patient notes that she had significant heavy alcohol intake from age [age] but has had nothing since. Drugs: Marijuana, - - Patient notes methamphetamine usage smoked and snorted, last usage 1 month prior, approximate half gram daily at least. - *Family History Maternal Family History: Family History (Last Updated 06/03/18 @ 14:52 by Mirela De La Garza) Mother Depression Substance abuse Brother Depression Grandfather Substance abuse History Items: - - Patient notes a maternal family history of depression and anxiety, substance abuse, notes her mother was shot when she was 12 years old. Paternal Family History: Family History (Last Updated 06/03/18 @ 14:52 by Mirela De La Garza) Mother Depression Substance abuse Brother Depression Grandfather Substance abuse History Items: - - Patient denies any market paternal family history including heart disease, diabetes or cancer. Review of Systems Constitutional: Reports: Anorexia, Malaise, Weakness, Fatigue. Denies: Chills, Fever, Weight Change HEENT: Denies: Head Aches, Sinus Congestion, Sinus Drainage Cardiovascular: Denies: Chest Pain, Palpitations Respiratory: Denies: Cough, Shortness of breath at rest, Sputum production Gastrointestinal: Reports: Abdominal Pain, Nausea. Denies: Vomiting Genitourinary: Denies: Dysuria Gynecological: Reports: - - Recent gonorrhea diagnosis but was asymptomatic. Musculoskeletal: Denies: Joint Pain, Joint Tenderness Skin: Denies: Rash, Wounds Neurological: Denies: Numbness, Tingling, Focal weakness Psychiatric: Reports: Anxiety, Depression. Denies: Homicidal Ideations, Suicidal Ideations Hematologic/ Lymphatic: Denies: Easy Bruising, Easy Bleeding VTE Information - Inpt Only VTE Present on Admission: No VTE Mechan Device Prophylaxis: None VTE Pharm Prophylaxis ordered?: No Reason prophylaxis not ordered:: Treatment Not Indicated Patient Problems: Active and Suspected Problems (Last Updated 06/03/18 @ 14:51 by Mirela De La Garza) Acute hepatitis (Acute) Total bilirubin, elevated (Acute) Subjective: Seated upright in ED bed, no acute distress, notes feeling improved following Zofran. Objective: Physical Examination: General: awake, alert, oriented x 3 and cooperative, seated upright in the ED bed, no acute distress, notes feeling improved following Zofran. Skin: Jaundiced color, scleral icterus, normal turgor, no cyanosis. HEENT: AT/NC, EOMI, PERRLA, moderately dry MM, no carotid bruits or JVD noted. Lungs: CTA bilaterally, moderate effort, mild decrease BL bases, no rales, ronchi or wheezing. Heart: Improved, regular rate and rhythm; no gallop, rub audible. Abdomen: soft, NTTP including right upper quadrant, ND, normal BS, no HSM. Extremities: no cyanosis, clubbing, or edema. Neurological: patient awake, alert, oriented x 3; cognitive function intact; pupils equally reactive to light and accomodation; cranial nerves II-XII grossly normal, moving all 4 extremities, no focal deficits, strength mildly global decreased. Psychiatric: affect appears fatigued otherwise normal, no acute evidence of depressive or anxiety feelings. - Physical Exam Vitals/I&O's: Vital Signs Temp Pulse Resp BP Pulse Ox 96.9 F L 119 H 18 114/67 95 01/04/20 11:47 01/04/20 11:47 01/04/20 11:47 01/04/20 11:47 01/04/20 11:47 Oxygen Delivery Method Room Air Weight: 130 lb 11.746 oz Body Mass Index (BMI) 20.5 Intake and Output for Last 24 Hours 01/02/20 01/03/20 01/04/20 23:59 23:59 23:59 Intake Total 1000 / 1000 Balance 1000 / 1000 Laboratory Results 01/04/20 11:57: WBC 8.5, RBC 4.77, Hgb 13.7, Hct 42.1, MCV 88.3, MCH 28.7, MCHC 32.5, RDW Std Deviation 49.9 H, RDW Coeff of Jus 15.6 H, Plt Count 354, MPV 10.9, Immature Gran % (Auto) 1.100 H, Neut % (Auto) 56.0, Lymph % (Auto) 33.0, [place] % (Auto) 8.5, Eos % (Auto) 0.6, Baso % (Auto) 0.8, Absolute Neuts (auto) 4.8, Absolute Lymphs (auto) 2.82, Nucleated RBC % 0, Reactive Lymphocytes 1+ 01/04/20 11:57: PT 14.2, INR 1.1, APTT 29.8 01/04/20 11:57: Sodium 134 L, Potassium 3.7, Chloride 96 L, Carbon Dioxide 32.0, Anion Gap 6, BUN 6 L, Creatinine 0.68, Estim Creat Clear Calc 122.51, Est GFR (MDRD) Af Amer 139, Est GFR (MDRD) Non-Af 115, BUN/Creatinine Ratio 8.8 L, Glucose 121 H, Calcium 8.9, Total Bilirubin 7.80 H, Direct Bilirubin 6.78 H, AST 998 H, ALT 1917 H, Alkaline Phosphatase 369 H, Total Protein 7.7, Albumin 3.1 L , Globulin 4.6 H, Lipase 133 01/04/20 11:57: Monoscreen Negative 01/04/20 11:57: Urine Test Negative 01/04/20 11:57: Urine Color Alpa, Urine Clarity Sl. Cloudy, Urine pH 6.0, Ur Specific [place] 1.020, Urine Protein 30 H, Urine Glucose (UA) Normal, Urine Ketones Negative, Urine Occult Blood 10 H, Urine Nitrite Negative, Urine Bilirubin 6 H, Urine Urobilinogen 8 H, Ur Leukocyte Esterase 25 H, Urine RBC 0-5 SEEN, Urine WBC 0-5 SEEN, Ur Squamous Epith Cells 0-5 SEEN, Amorphous Sediment 1+ URATE, Urine Bacteria 2+, Urine Mucus 0 SEEN 01/04/20 11:57: Urine Opiates Screen NEGATIVE, Urine Methadone Screen NEGATIVE, Ur Barbiturates Screen NEGATIVE, Ur Phencyclidine Scrn NEGATIVE, Ur Amphetamines Screen NEGATIVE, U Methamphetamin-MDMA NEGATIVE, U Benzodiazepines Scrn NEGATIVE, Urine Cocaine Screen NEGATIVE, U Cannabinoids Screen POSITIVE H, Ur Drug Screen Comment 01/04/20 12:25: Hepatitis A IgM Ab Pending, Hep Bs Antigen Pending, Hep B Core IgM Ab Pending, Hepatitis C Ab (EIA) Pending Assessment/Plan All Active Problems (Last Updated 06/03/18 @ 14:51 by Mirela De La Garza) Acute hepatitis (Acute) Total bilirubin, elevated (Acute) The patient is a 19 y/o F w/ PMHx: Anxiety and Depression History of Polysubstance abuse currently admitting to methampetamine snorted and smoked with denied IV drug abuse, Cannabis use, Former Tobacco use, Asthma who presents to the [facility] ED on 01/04/20 with history of recent treatment for gonorrhea with a one-week history of abdominal pain especially in the right upper quadrant more severe approximately 4 to 5 days prior with abnormal lightening of her stools as well as onset pruritus diffusely and yellowing of her skin over the last 48 hours although patient does note that her abdominal pain has completely subsided x2 to 3 days. 1. Acute Transaminitis, Hyperbilirubinemia with concurrent right upper quadrant abdominal pain: Admission work-up as noted with follow-up gallbladder ultrasound not severe appearing, general surgery was contacted per ED physician and reviewed case and felt less likely etiology with recommendation for ongoing alternate etiologies including possible hepatitis with hepatitis panel pending per ED. Will admit to the medical surgical floor, maintain n.p.o. status given discomfort, continue PRN pain and antiemetic regimen, trend CBC, CMP levels. If levels trending down and positive hepatitis would refer to GI at discharge. Will defer recurrent surgery evaluation but if any further surgical concerns would reconsult. 2. History of polysubstance abuse: Urine drug screen with only cannabis noted, admits to methamphetamine usage but notes only smoked and snorted. Case management consulted. 3. History of tobacco use: Encouraged continued tobacco cessation. 4. Chronic asthma: PRN albuterol, encourage head of bed, I-S. 5. Anxiety and depression: Onset following of her mother, history of polysubstance abuse associated, encourage outpatient follow-up. 6. DVT prophylaxis: Low risk encourage ambulation. Inpatient E&M: [id number] Init Hosp L3
--- NOTE | 2020-01-04 15:19 | NURSING ---
MED SURG WHITE HEPATITIS, ACUTE
[2020-01-04 15:32] VITALS: BP 117/75; PULSE 79; RESP 16; TEMP 36.8; O2SAT 100
[2020-01-04 16:16] VITALS: BP 108/68; PULSE 73; RESP 18; TEMP 36.6; O2SAT 98
[2020-01-04 16:17] VITALS: BMI 20.5
[2020-01-04 16:20] VITALS: BMI 20.5
[2020-01-04] MEDS: 0.9% Normal Saline 1,000 ML 125 ML IV (16:45)
[2020-01-04 17:10] VITALS: O2SAT 98
[2020-01-04 22:02] VITALS: BP 91/55; PULSE 101; RESP 16; TEMP 37.2; O2SAT 99
[2020-01-04] MEDS: Famotidine 20 MG Tablet PO (22:22)
[2020-01-04] MEDS: Clindamycin HCl 150 MG Capsule 300 MG PO (22:22)
[2020-01-05] MEDS: 0.9% Normal Saline 1,000 ML 125 ML IV ×2 (00:23→08:23)
[2020-01-05 02:30] VITALS: BP 115/64; PULSE 88; RESP 16; TEMP 36.9; O2SAT 97
[2020-01-05] MEDS: Clindamycin HCl 150 MG Capsule 300 MG PO (05:55)
[2020-01-05 06:06] LABS: HEPATITIS B SURFACE AG Negative (Negative); Hepatitis B Core AB IgM Negative (Negative)
[2020-01-05 06:06] LABS: Absolute Lymphocyte Count 2.84 X10^3/uL (0.83-4.51); Absolute Neutrophil Count 3.1 X10^3/uL (2.0-7.7); Basophil# 0.04 X10^3/uL; Basophil% 0.6 % (0-1); Differential Indicated SCAN CRITERIA MET; Eosinophil# 0.07 X10^3/uL; Eosinophils% 1.1 % (0-5); Hematocrit 35.6 % (37-47); Lymphocyte # 2.84 X10^3/ul (4.0); Lymphocyte % 42.6 % (19-41); Mean Corp Hgb Conc 33.7 g/dL (32-36); Mean Corpuscular Hgb 29.7 pg (27.0-32.0); Mean Corpuscular Volume 88.1 fL (81-99); Mean Platelet Vol. 10.6 fl (6.2-12.0); Monocyte# 0.58 X10^3/uL; Monocyte% 8.7 % (0-10); NRBC Flagged by Analyzer 0 % (0-5); Neutrophil # 3.08 X10^3/uL (2.7-7.7); Neutrophil % 46.2 % (47-70); POSITIVE MORPHOLOGY YES; Platelet Count 282 K/mm3 (150-450); RBC Distribution Width CV 15.9 % (11.6-14.6); RBC Distribution Width SD 50.6 fl (35.1-43.9); Red Blood Count 4.04 M/mm3 (4.2-5.4); White Blood Count 6.7 K/mm3 (4.4-11.0)
[2020-01-05 06:19] LABS: Differential Comment SCANNED
[2020-01-05 06:20] LABS: Atypical Lymphocyte RARE %
[2020-01-05 06:42] LABS: ALB/GLOB Ratio 0.7 RATIO (0.9-2.4); AST(SGOT) 771 U/L (15-37); Alanine Aminotransfer ALT/SGPT 1430 U/L (13-56); Albumin, Serum 2.5 g/dL (3.2-5.0); Alkaline Phosphatase 318 U/L (45-117); Anion Gap 5 (5-15); BUN 4 mg/dL (7-18); BUN/Creat Ratio 7.8 RATIO (10-20); Chloride 105 mmol/L (98-107); Creatinine, Serum 0.51 mg/dL (0.55-1.02); EST Glomerular Filtration Rate 161 mL/min (>60); Est Glom Filt Rate - Afr Amer 195 mL/min (>60); Estimated Creatinine Clearance 163.35 ml/min; Globulin 3.7 g/dL (2.2-4.2); Glucose 84 mg/dL (74-106); Protein, Total 6.2 g/dL (6.4-8.2); Sodium Level 139 mmol/L (136-145)
[2020-01-05 08:19] VITALS: BP 96/60; PULSE 88; RESP 18; TEMP 36.4; O2SAT 98
[2020-01-05] MEDS: Famotidine 20 MG Tablet PO (08:29)
--- NOTE | 2020-01-05 09:59 | CASEMGMT ---
Social Work Note Social Work Assessment Referral Date: 01/04/2020 Date of Assessment: 01/05/2020 Reason for consult: Substance abuse Informant: Personal Status: SW met with pt and introduced self and role at [facility]. Pt is alert and orientated x4. Pt states that she lives with her boyfriend and his family. Pt states she was previously independent with ADLs. Pt states she doesn't drive as she doesn't currently have a license. Pt states that she has much support from her boyfriend's family and also identifies her grandmother, cousins and brother as good support as well. Substance Abuse Hx: Pt states she has history of ETOH abuse, cigarette use and methamphetamine use. Pt states she has been clean from ETOH for years (Pt's H+P states she had drinking problems from the age of [age] but denied current use). Pt states she has been clean from methamphetamine use for about a month and per H+P pt only snorts or smokes methamphetamine, doesn't use it IV. Mental Health Hx: Pt states she has history of anxiety, depression, and PTSD. Pt states she used to see a counselor at [facility] but that counselor took a different position and is no longer seeing that counselor. Pt denied currently seeing any counselor. Pt states that she is in a good place right now and feels that she doesn't need to see a counselor at this time. Pt denied currently taking medications. Pt states she used to be on medications but didn't like the side effects and stopped taking the medications. Pt states that she was thinking of returning to [facility] at discharge but states she thinks she is going to wait until the Coronavirus is gone. Pt states last summer (Summer 2018) she had suicidal thoughts and was at [facility] in [place] for a week. Pt states one of her good friends hung himself in the basement of the home and that was tough for her. SW offered support for pt. Pt denied any current suicidal/homicidal thoughts/plans/ideations. Pt again states she is in a much better place emotionally and is doing well at this time. Pt plans on returning home to her boyfriends home at discharge. Pt denied any current needs at this time. Pt is aware of resources in the community including [facility] and [facility] if pt need additional support. Pt denied any current suicidal/homicidal thoughts/plans/ideations. Plan: Home [employer]
[2020-01-05 10:36] LABS: Hep C Antibodies <0.1 s/co ratio (0.0-0.9)
[2020-01-05 10:38] LABS: Hepatitis A IgM Antibody Positive (Negative)
--- NOTE | 2020-01-05 12:00 | PCM.DC ---
- Discharge Diagnoses Current Active Problems: Current Active and Chronic Problems Acute hepatitis (Acute) Total bilirubin, elevated (Acute) Former tobacco use (Chronic) You will use the following diet at home:: No restrictions Your food should be the consistency of: Regular Your liquids should be the consistency of: Regular/Thin Discharge Activity: Return to Normal Activity Weight Bearing Status: Full weight bearing Additional Instructions: Do not share eating utensils with anyone for the next 14 days. Do not have sex for the next 14 days. Avoid having people come into contact with your blood or body fluids for the next 14 days Allergies/Adverse Reactions: Allergies amoxicillin [Amoxicillin] Allergy (Verified 01/04/20 11:47) NOT SURE, WAS A BABY Medications to take at Discharge Cefdinir [Omnicef [equiv]] 600 mg PO DAILY #14 cap 01/05/20 proMETHazine tablet [Phenergan tablet] 12.5 - 25 mg PO Q6H PRN PRN #14 tab 01/05/20 The following prescriptions were given: Cefdinir [Omnicef [equiv]] 600 mg PO DAILY #14 cap Transmission Status: Pending to [facility] #30 proMETHazine tablet [Phenergan tablet] 12.5 - 25 mg PO Q6H PRN PRN #14 tab PRN Reason: Nausea Transmission Status: Pending to [facility] #30 Primary Care Physician: Amarilis Berry NP-C [Primary Care Provider] - Please follow up with your Primary Care Physician in: in one week-you need a liver profile test repeated Test Results: Test results from this visit will be discussed in further detail at your follow-up appointment, if applicable.
--- NOTE | 2020-01-05 15:52 | PCM.DC.SUM ---
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 Patient also complained of right upper quadrant abdominal discomfort over the past week. Patient denied any abdominal pain when she was evaluated in the emergency room. Evaluation in the emergency room included a CBC which was unremarkable, patient's liver enzymes were diffusely elevated with a bilirubin of 7.8, AST of 998, ALT of 1917, and alkaline phosphatase of 369. Tox screen was positive for cannabinoids, patient's urinalysis was remarkable for +2 bacteria, RBCs were 0-5, WBCs were 0-5. Nitrite was negative. CT of the abdomen was was obtained which showed a mild degree of larissa-portal edema in the liver with evidence of pericholecystic fluid and thickening of the gallbladder wall. Gallbladder ultrasound showed a contracted gallbladder with slightly thickened gallbladder wall. Her case was discussed with on-call surgery and it was felt that the patient had a viral hepatitis rather than a surgical case. Patient was admitted to [place] [address], hepatitis panel was obtained and resulted positive for hepatitis A. The following day, the patient was able to have an advancement of her diet without difficulty, she still complained of pruritus. On 01/05/2020, patient was seen and examined: On examination she appeared in good health and spirits, she does not appear to be in any distress. Vital signs as documented. Skin warm and dry and without overt rashes, patient had evidence of jaundice. Neck without JVD, thyroid appears normal, trachea is midline, neck is supple. Lungs clear, normal air movement was noted. Heart exam notable for regular rhythm, normal sounds and absence of murmurs, rubs or gallops. Abdomen unremarkable and without evidence of organomegaly, masses, or abdominal aortic enlargement, bowel sounds are present in all 4 quadrants, no abdominal tenderness was noted. Extremities nonedematous, no cyanosis was noted, no clubbing was noted. Neuro: Cranial nerves II through XII are grossly intact, no focal motor deficits were noted, sensation to light touch and pinprick is intact, motor exam 5/5 throughout. Psych: Patient is alert and oriented x3, she does not appear anxious or depressed, she does not appear agitated. Patient was discharged home in stable condition on 01/05/2020, she was cautioned not to allow people to contact her bodily fluids for the next 14 days. She was instructed to follow-up with her PCP in a week and have a repeat liver profile obtained. Further note: Patient recently had strep throat diagnosed but she did not take her prescribed antibiotic (Cleocin) as directed-she was noncompliant with her medication. I have elected to place her on 1 week of Omnicef. - Physical Exam Vitals/I&O's: Vital Signs Temp Pulse Resp BP Pulse Ox 97.5 F L 88 18 96/60 98 01/05/20 08:19 01/05/20 08:19 01/05/20 08:19 01/05/20 08:19 01/05/20 08:19 Oxygen Delivery Method Room Air Weight: 59.3 kg Body Mass Index (BMI) 20.5 Intake and Output for Last 24 Hours 01/03/20 01/04/20 01/05/20 23:59 23:59 23:59 Intake Total 1560 / 1560 3338.34 / 3338.34 Output Total 800 / 800 500 / 500 Balance 760 / 760 2838.34 / 2838.34 Laboratory Results 01/04/20 12:25: Hepatitis A IgM Ab Positive H, Hep Bs Antigen Negative, Hep B Core IgM Ab Negative, Hepatitis C Ab (EIA) <0.1 01/05/20 05:50: WBC 6.7, RBC 4.04 L, Hgb 12.0, Hct 35.6 L, MCV 88.1, MCH 29.7, MCHC 33.7, RDW Std Deviation 50.6 H, RDW Coeff of Jus 15.9 H, Plt Count 282, MPV 10.6, Immature Gran % (Auto) 0.800, Neut % (Auto) 46.2 L, Lymph % (Auto) 42.6 H, [place] % (Auto) 8.7, Eos % (Auto) 1.1, Baso % (Auto) 0.6, Absolute Neuts (auto) 3.1, Absolute Lymphs (auto) 2.84, Nucleated RBC % 0, Differential Comment SCANNED, Atypical Lymphocytes RARE 01/05/20 05:50: Sodium 139, Potassium 4.0, Chloride 105, Carbon Dioxide 29.0, Anion Gap 5, BUN 4 L, Creatinine 0.51 L, Estim Creat Clear Calc 163.35, Est GFR (MDRD) Af Amer 195, Est GFR (MDRD) Non-Af 161, BUN/Creatinine Ratio 7.8 L, Glucose 84, Calcium 8.0 L, Total Bilirubin 6.50 H, AST 771 H, ALT 1430 H, Alkaline Phosphatase 318 H, Total Protein 6.2 L, Albumin 2.5 L, Globulin 3.7, Albumin/Globulin Ratio 0.7 L Discharge Activity: Return to Normal Activity Weight Bearing Status: Full weight bearing Home Medications: Medications to take at Discharge Cefdinir [Omnicef [equiv]] 600 mg PO DAILY #14 cap 01/05/20 hydrOXYzine tablet [Atarax tablet] 10 - 20 mg PO 4X/DAY PRN PRN #40 tab 01/05/20 proMETHazine tablet [Phenergan tablet] 12.5 - 25 mg PO Q6H PRN PRN #14 tab 01/05/20 Following Prescrptions Were Given to Patient: hydrOXYzine tablet [Atarax tablet] 10 - 20 mg PO 4X/DAY PRN PRN #40 tab PRN Reason: Itching Transmission Status: Received by [facility] #30 Cefdinir [Omnicef [equiv]] 600 mg PO DAILY #14 cap Transmission Status: Received by [facility] #30 proMETHazine tablet [Phenergan tablet] 12.5 - 25 mg PO Q6H PRN PRN #14 tab PRN Reason: Nausea Transmission Status: Received by [facility] #30 Primary Care Physician: Amarilis Berry NP-C [Primary Care Provider] - Please follow up with your Primary Care Physician in: in one week-you need a liver profile test repeated Please Follow Up With: Jill Mccracken MD Disposition: Home Minutes spent on discharge:: 30 Patient Condition:: Stable Medical Necessity - Tobacco Use Smoking Status: Current some day smoker Tobacco Use: - Meaningful Use Info Meaningful Use Diagnoses (Choose all that apply): None applicable OBSV E&M: 73897 Observation care discharge
== END 2020-01-05 12:44 | disposition home or self-care (01) ==
LOC: ED 15:18 → MS3 15:42
PROVIDERS: Admitting Provider Family Medicine; Emergency Provider Emergency Medicine; PCP Nurse Practitioner Family; Visit Provider Internal Medicine
DX: B15.9 Hepatitis A without hepatic coma (principal); Z23 Encounter for immunization; F41.8 Other specified anxiety disorders; F19.11 Other psychoactive substance abuse, in remission; Z87.891 Personal history of nicotine dependence; J45.909 Unspecified asthma, uncomplicated; Z91.14 Patient's other noncompliance with medication regimen
CPT/HCPCS: 36415; 74177; 76705; 80048; 80053; 80074; 80076; 80307; 81001; 81025; 83690; 85025; 85610; 85730; 86308; 93005; 96361; 96374; 99218; 99251; 99284; 99406; J7030; Q9967; 90686; A4216; G0378; G0463; J2405

== ENCOUNTER 2020-01-26 11:07 | Emergency (ER) | payer MEDICAID, SELFPAY ==
[2020-01-26 11:09] VITALS: BP 130/63; PULSE 97; RESP 16; TEMP 36.8; O2SAT 98; BMI 19.6
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
[2020-01-26 11:34] VITALS: BP 130/63; PULSE 97; RESP 16; TEMP 36.8; O2SAT 98
[2020-01-26 11:45] VITALS: BP 130/63; PULSE 97; RESP 16; TEMP 36.8; O2SAT 98
[2020-01-26] MEDS: Clindamycin HCl 150 MG Capsule 300 MG PO (12:24)
[2020-01-26] MEDS: dexAMETHasone 10 MG/ML Vial PO.IVFORM (12:24)
== END 2020-01-26 12:27 | disposition home or self-care (01) ==
LOC: ED 12:01
PROVIDERS: Emergency Provider Emergency Medicine; PCP Nurse Practitioner Family
DX: J36 Peritonsillar abscess (principal); F15.11 Other stimulant abuse, in remission; J45.909 Unspecified asthma, uncomplicated; F17.200 Nicotine dependence, unspecified, uncomplicated
CPT/HCPCS: 99283

== ENCOUNTER 2020-01-28 04:46 | Emergency (ER) | payer MEDICAID, SELFPAY ==
[2020-01-28 04:47] VITALS: BP 96/75; PULSE 112; RESP 16; TEMP 36.4; O2SAT 100; BMI 20.5
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
[2020-01-28 05:36] VITALS: BP 102/65; PULSE 102; RESP 17; TEMP 36.3; O2SAT 99
[2020-01-28 05:37] VITALS: BP 108/69; PULSE 98; RESP 19; O2SAT 98
== END 2020-01-28 05:38 | disposition home or self-care (01) ==
LOC: ED 05:21
PROVIDERS: Emergency Provider Emergency Medicine; PCP Nurse Practitioner Family
DX: J36 Peritonsillar abscess (principal); B00.1 Herpesviral vesicular dermatitis; J45.909 Unspecified asthma, uncomplicated; F17.200 Nicotine dependence, unspecified, uncomplicated
CPT/HCPCS: 99283

== ENCOUNTER 2020-06-17 06:07 | Emergency (ER) | payer MEDICAID, SELFPAY ==
[2020-06-17 06:08] VITALS: BP 131/80; PULSE 92; RESP 16; TEMP 37.4; O2SAT 94; BMI 22.2
--- NOTE | 2020-06-17 06:25 | ED.VISSUMM ---
- ER Visit Summary Date of Service: 06/17/20 Chief Complaint: Sore throat History of Present Illness: The patient is a [address] Berry. She does not have an ENT. Patient reports that she has a sore throat that began yesterday. She describes it as an aching pain is 10 of 10 worsening to 10 currently. Is worsened by swallowing, talking, or cold. She is taken NSAIDs with no relief. She denies any fever or chills. She reports that she had a similar episode 4 months ago and was told to follow-up with an footwear sales leader and never did. Physical Examination: Vitals: Stable. Afebrile. General: Well-nourished and well-developed. Head: Normocephalic atraumatic. HEENT: There is moderate swelling of the left tonsil and it does appear cellulitic. However, there is no swelling of the soft palate. No uvular shift. No evidence of a peritonsillar abscess. She has a serous effusion of her left TM. Right TM is normal. Neck: Supple, no lymphadenopathy. No JVD. Nontender. Cardiovascular: Regular rate and rhythm. No murmurs. Respiratory: No respiratory distress. Clear to auscultation bilaterally. Abdominal: Soft, nontender, nondistended, normal bowel sounds. No guarding, rebound, or peritoneal signs. Back: Nontender. Extremities: Nontender, no edema. Skin: Normal color, no rash. Neurologic: Alert and oriented ?3. Cranial nerves II through XII are intact. Normal strength and sensation. Psych: Normal affect. Emergency Department Course and Treatment: Patient is allergic to amoxicillin. She was treated with clindamycin, dexamethasone, and Bonsall. Patient refused an IV for initial antibiotic. Treatment Plan: I discussed the patient that if she has increased swelling. Pain to the roof of her mouth. Or any other concerns she should return to the emergency department. She does understand that this could potentially develop into a peritonsillar abscess that would require surgical drainage. She will be discharged on clindamycin, prednisone, and Bonsall. Instructed to follow-up with Dr. Griffin in 2 days for another exam. Unfortunately we do not have an footwear sales leader flight control tower operator today so I was unable to speak with him. Disposition: To home in improved and stable condition. Impression: 1. Peritonsillar cellulitis on left. This note was generated with [employer] dictation software. It may contain incorrect words, spelling, and punctuation that were not noted in review of the chart prior to signing ED Disposition - Plan for ED Patient: Instructions: ED Peritonsillar Abscess Prescriptions: Clindamycin HCl [Cleocin] 300 mg PO Q6H #40 capsule Prednisone [Deltasone] 40 mg PO DAILY #10 tablet Hydrocodone Bitart/Apap 5-325 [Bonsall 5MG-325MG] 1 tablet PO Q4H PRN PRN 2 Days #10 tablet PRN Reason: Pain Referrals: Hansel Griffin MD [STAFF PHYSICIAN] - 2 Days
[2020-06-17] MEDS: Clindamycin HCl 150 MG Capsule 300 MG PO (06:31)
[2020-06-17] MEDS: dexAMETHasone 4 MG Tablet 10 MG PO (06:31)
[2020-06-17] MEDS: HYDROcodone Bitartrate/Apap 5/325 Tablet PO (06:32)
[2020-06-17 06:35] VITALS: RESP 18
== END 2020-06-17 06:47 | disposition home or self-care (01) ==
PROVIDERS: Emergency Provider Emergency Medicine; PCP Nurse Practitioner Family
DX: J36 Peritonsillar abscess (principal); J45.909 Unspecified asthma, uncomplicated
CPT/HCPCS: 99283

== ENCOUNTER → 2020-06-29 | Outpatient (CLI) | payer MEDICAID, SELFPAY ==
[2020-06-17 06:08] VITALS: BMI 22.2
== END | disposition home or self-care (01) ==
LOC: LABSPEC 11:40
PROVIDERS: PCP Nurse Practitioner Family; Referring Provider Otolaryngology; Visit Provider Otolaryngology
DX: J02.9 Acute pharyngitis, unspecified (principal)
CPT/HCPCS: 87070

== ENCOUNTER 2020-07-18 18:34 | Emergency (ER) | payer MEDICAID, SELFPAY ==
[2020-07-18 18:35] VITALS: BP 114/65; PULSE 119; RESP 14; TEMP 37.1; O2SAT 99; BMI 21.4
--- NOTE | 2020-07-18 19:02 | ED.DEP ---
ED Disposition - Plan for ED Patient: Instructions: ED Otitis Media Antibiotic Treatment Adult Prescriptions: Azithromycin [Zithromax Z-Enrrique] 250 mg PO UD #1 box Prescription Printed Referrals: Lg Humphreys MD [STAFF PHYSICIAN] -
--- NOTE | 2020-07-18 19:22 | ED.DCSUM_ITS ---
- ER Visit Summary Date of Service: 07/18/20 Chief Complaint: Right ear pain and decreased hearing History of Present Illness: The patient is a 19 F presenting with pain in her right ear as well as muffled/decreased hearing. She states this has been ongoing for the past 2 days. Denies fever. She states she uses Q-tips daily. Denies other complaints. Physical Examination: Vitals are stable. Patient is afebrile. Alert no acute distress. HEENT exam right TM mild erythema and bulging. No cerumen impaction. Neck is supple. Lungs are clear and equal bilaterally. Heart is regular rate and rhythm. Extremities are unremarkable. Skin is warm and dry. No focal neurologic deficit. Remainder of exam is unremarkable. Emergency Department Course and Treatment: She was given Zithromax prescription. Advised to follow-up with ENT as needed. Advised return to ED for worsening complaints. Disposition: Discharge home Impression: Right otitis media This note was generated with [employer] dictation software. It may contain incorrect words, spelling, and punctuation that were not noted in review of the chart prior to signing ED Disposition - Plan for ED Patient: Instructions: ED Otitis Media Antibiotic Treatment Adult Referrals: Lg Humphreys MD [STAFF PHYSICIAN] -
== END 2020-07-18 19:24 | disposition home or self-care (01) ==
LOC: ED 19:07
PROVIDERS: Emergency Provider Emergency Medicine; PCP Nurse Practitioner Family
DX: H66.91 Otitis media, unspecified, right ear (principal); J45.909 Unspecified asthma, uncomplicated
CPT/HCPCS: 99282

== ENCOUNTER 2020-08-23 14:35 | Emergency (ER) | payer MEDICAID, SELFPAY ==
[2020-08-23] VITALS (8 sets, daily range): BP systolic 120–124; BP diastolic 70–106; PULSE 101–167; RESP 18–24; TEMP 37.1–39.4; O2SAT 96–98; BMI 22.0
--- NOTE | 2020-08-23 14:45 | EKG12_ITS ---
Test Reason : Blood Pressure : / mmHG Vent. Rate : 139 BPM Atrial Rate : 139 BPM P-R Int : 098 ms QRS Dur : 072 ms QT Int : 282 ms P-R-T Axes : 026 072 015 degrees QTc Int : 429 ms Sinus tachycardia with short MT Otherwise normal ECG Confirmed by TRACIE ISRAEL, MIGUEL ([id number]), editorial project manager KIMBERLY VASQUEZ ([id number]) on 08/24/2020 11:10:43 AM Referred By: DK Confirmed By:MIGUEL HODGES MD
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
[2020-08-23] MEDS: Acetaminophen 500 MG Tablet 1000 MG PO (14:59)
--- NOTE | 2020-08-23 15:10 | RAD_ITS ---
STUDY: X-RAY CHEST REASON FOR EXAM: Female, 19 years old. FEVER, SOB FOR SEVERAL DAYS. TECHNIQUE: Single AP portable view of the chest. COMPARISON: Comparison is made with prior study dated 10/13/2017. FINDINGS: EKG electrodes are seen. The lungs are clear and expanded. There is no demonstrated pleural abnormality. Normal size heart. Normal mediastinum and colten. Normal visualized pulmonary arteries. Normal visualized aortic arch and descending thoracic aorta. Normal visualized thoracic spine. Normal visualized ribs, clavicles, and shoulders. There is no demonstrated abnormality of the visualized soft tissue structures of the upper abdomen. RAD/Chest 1 View (Portable) IMPRESSION: Normal x-ray examination of the chest. Electronically Signed: Dagoberto Saenz, at 15:22 EST , Service support ,
[2020-08-23 15:18] LABS: Absolute Lymphocyte Count 1.44 X10^3/uL (0.83-4.51); Basophil# 0.04 X10^3/uL; Basophil% 0.2 % (0-1); Eosinophil# 0.09 X10^3/uL; Eosinophils% 0.5 % (0-5); Hematocrit 41.5 % (37-47); Hemoglobin 13.5 g/dL (12.0-15.0); Lymphocyte # 1.44 X10^3/ul (4.0); Lymphocyte % 7.3 % (19-41); Mean Corp Hgb Conc 32.5 g/dL (32-36); Mean Corpuscular Hgb 29.9 pg (27.0-32.0); Mean Corpuscular Volume 91.8 fL (81-99); Monocyte# 1.93 X10^3/uL; Monocyte% 9.8 % (0-10); NRBC Flagged by Analyzer 0 % (0-5); Neutrophil % 81.3 % (47-70); POSITIVE DIFFERENTIAL YES; POSITIVE MORPHOLOGY YES; Platelet Count 252 K/mm3 (150-450); RBC Distribution Width CV 12.6 % (11.6-14.6); RBC Distribution Width SD 42.2 fl (35.1-43.9); Red Blood Count 4.52 M/mm3 (4.2-5.4); White Blood Count 19.7 K/mm3 (4.4-11.0)
[2020-08-23 15:26] LABS: Differential Indicated SCAN CRITERIA MET
[2020-08-23 15:30] LABS: Fibrinogen 672 mg/dl (203-444)
[2020-08-23 15:32] LABS: ALB/GLOB Ratio 0.8 RATIO (0.9-2.4); AST(SGOT) 18 U/L (15-37); Alanine Aminotransfer ALT/SGPT 61 U/L (13-56); Albumin, Serum 3.8 g/dL (3.2-5.0); Alkaline Phosphatase 68 U/L (45-117); Anion Gap 7 (5-15); BUN 10 mg/dL (7-18); BUN/Creat Ratio 12.9 RATIO (10-20); Calcium,Total 9.3 mg/dL (8.5-10.1); Chloride 94 mmol/L (98-107); Creatinine, Serum 0.78 mg/dL (0.55-1.02); EST Glomerular Filtration Rate 99 mL/min (>60); Est Glom Filt Rate - Afr Amer 120 mL/min (>60); Estimated Creatinine Clearance 110.95 ml/min; Globulin 4.6 g/dL (2.2-4.2); Glucose 135 mg/dL (74-106); Potassium 3.8 mmol/L (3.5-5.1); Protein, Total 8.4 g/dL (6.4-8.2); Sodium Level 129 mmol/L (136-145)
[2020-08-23 15:33] LABS: D-Dimer Quantitative (DVT/PE) 0.45 FEU/ug/m (0.27-0.49)
[2020-08-23 15:34] LABS: Lactic Acid 1.7 mmol/L (0.4-1.9)
[2020-08-23 16:04] LABS: Procalcitonin 0.14 ng/mL (0.00-0.09)
[2020-08-24 13:50] LABS: Pathologist Review Reviewed
== END 2020-08-23 18:23 | disposition home or self-care (01) ==
LOC: ED 15:10
PROVIDERS: Emergency Provider Emergency Medicine; PCP Nurse Practitioner Family
DX: R06.00 Dyspnea, unspecified (principal); M79.10 Myalgia, unspecified site; R05 Cough; R50.9 Fever, unspecified
CPT/HCPCS: 71045; 80053; 83605; 84145; 85025; 85379; 85384; 87040; 87633; 87635; 93005; 96360; 99284; J7030; A4216; U0002

== ENCOUNTER 2020-08-26 09:52 | Emergency (ER) | payer MEDICAID, SELFPAY ==
[2020-08-23 14:36] VITALS: BMI 22.0
[2020-08-26 09:53] VITALS: BP 100/58; PULSE 111; RESP 16; TEMP 36.2; O2SAT 97; BMI 21.9
--- NOTE | 2020-08-26 10:08 | CT_ITS ---
STUDY: CT ABDOMEN AND PELVIS WITHOUT CONTRAST REASON FOR EXAM: Female, 19 years old. Right flank pain x 2 weeks. Hx hepatitis, asthma. RADIATION DOSAGE (If Supplied By Facility): CTDIvol = ( 6.17 ) mGy, DLP = ( 325.01 ) mGycm TECHNIQUE: Transaxial images were obtained from the dome of the diaphragm to the symphysis pubis without oral contrast, and without intravenous contrast. Sagittal and coronal images were reconstructed. Individualized dose optimization techniques were used for this CT. COMPARISON: 01/04/2020 FINDINGS: The visualized lung bases are unremarkable. The visualized portions of the heart are within normal limits. Normal liver. Normal gallbladder and extrahepatic biliary system. Normal spleen. Normal pancreas. Normal bilateral adrenal glands. Tiny nonobstructing stone in the midsection right kidney. No hydronephrosis, ureteral stone, or ureteral dilatation. Normal left kidney. Normal visualized stomach. Normal small intestine. Normal colon. The appendix is visualized and appears normal. Normal abdominal aorta. Normal inferior vena cava. Normal retroperitoneum. Normal urinary bladder. Normal abdominal wall. Normal osseous structures. CT/Abdomen/Pelvis without Cont IMPRESSION: No acute abnormality. Tiny nonobstructing right renal stone. Electronically Signed: Luisito Burgos MD at 12:27 EST Tel , Service support ,
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
[2020-08-26] MEDS: Ketorolac 15 MG/ML Vial IV (11:00)
[2020-08-26] MEDS: Ondansetron 4 MG/2 ML Vial IV (11:00)
[2020-08-26 11:13] LABS: Mucous, Urine 0 SEEN /hpf (<or=2+)
[2020-08-26 11:15] LABS: Absolute Lymphocyte Count 1.53 X10^3/uL (0.83-4.51); Basophil# 0.03 X10^3/uL; Basophil% 0.2 % (0-1); Eosinophil# 0.02 X10^3/uL; Eosinophils% 0.2 % (0-5); Hematocrit 39.3 % (37-47); Hemoglobin 12.5 g/dL (12.0-15.0); Lymphocyte # 1.53 X10^3/ul (4.0); Lymphocyte % 12.7 % (19-41); Mean Corp Hgb Conc 31.8 g/dL (32-36); Mean Corpuscular Hgb 29.8 pg (27.0-32.0); Mean Corpuscular Volume 93.8 fL (81-99); Mean Platelet Vol. 11.1 fl (6.2-12.0); Monocyte# 1.44 X10^3/uL; Monocyte% 11.9 % (0-10); NRBC Flagged by Analyzer 0 % (0-5); Neutrophil # 8.96 X10^3/uL (2.7-7.7); Neutrophil % 74.3 % (47-70); Platelet Count 230 K/mm3 (150-450); RBC Distribution Width CV 12.9 % (11.6-14.6); RBC Distribution Width SD 44.6 fl (35.1-43.9); Red Blood Count 4.19 M/mm3 (4.2-5.4); White Blood Count 12.1 K/mm3 (4.4-11.0)
[2020-08-26 11:15] LABS: Color, Urine Straw (Yellow); Glucose, Dipstick Normal (Normal); Ketone-Dipstick Negative (Negative); Leukocyte Esterase-Dipstick 100 /ul (Negative); Nitrite-Dipstick Negative (Negative); Occult Blood-Urine 25 /ul (Negative); Protein-Dipstick 30 mg/dl (Negative); Urine Bilirubin Dipstick Negative (Negative); Urine Clarity Sl. Cloudy (Clear); Urine Urobilinogen Normal (Normal)
[2020-08-26 11:19] LABS: Internal QC Validated? YES +Cl - CLEAR BKGD; Pregnancy, Urine Negative Negative
[2020-08-26 11:22] LABS: Bacteria 2+ /hpf (None Seen); Squamous Epithelial Cells - UA 0-5 SEEN /hpf (5-10); White Blood Cells 10-25 SEEN /hpf (0-5)
[2020-08-26 11:23] LABS: Red Blood Cells-Urine 0-5 SEEN /hpf (0-5)
[2020-08-26 11:28] LABS: Anion Gap 5 (5-15); BUN 6 mg/dL (7-18); BUN/Creat Ratio 9.9 RATIO (10-20); Calcium,Total 9.4 mg/dL (8.5-10.1); Chloride 99 mmol/L (98-107); Creatinine, Serum 0.61 mg/dL (0.55-1.02); EST Glomerular Filtration Rate 131 mL/min (>60); Est Glom Filt Rate - Afr Amer 158 mL/min (>60); Estimated Creatinine Clearance 141.87 ml/min; Glucose 121 mg/dL (74-106); Potassium 3.5 mmol/L (3.5-5.1); Sodium Level 135 mmol/L (136-145)
[2020-08-26] MEDS: 0.9% Normal Saline 1,000 ML 999 ML IV (12:19)
[2020-08-26] MEDS: Smz/Tmp Ds Tablet 1 TABLET PO (13:06)
[2020-08-26 13:12] VITALS: BP 113/79; PULSE 107; RESP 17
--- NOTE | 2020-08-26 13:13 | ED.RN ---
IV DC'ED, CATHETER INTACT, SMALL GAUZE DRESSING PLACED. DISCHARGE INSTRUCTIONS GIVEN TO AND REVIEWED WITH PATIENT, PATIENT DENIES QUESTIONS OR CONCERNS AND VOICES UNDERSTANDING OF DISCHARGE INSTRUCTIONS. PT AMBULATES OUT OF ROOM WITHOUT DIFFICULTY.
== END 2020-08-26 13:13 | disposition home or self-care (01) ==
PROVIDERS: Emergency Provider Physician Assistant; PCP Nurse Practitioner Family
DX: N12 Tubulo-interstitial nephritis, not specified as acute or chronic (principal); N39.0 Urinary tract infection, site not specified; Z87.891 Personal history of nicotine dependence
CPT/HCPCS: 74176; 80048; 81001; 81025; 85025; 96361; 96374; 96375; 99283; J7030; A4216; J2405

== ENCOUNTER 2020-09-03 03:44 | Emergency (ER) | payer MEDICAID, SELFPAY ==
[2020-09-03 03:45] VITALS: BP 132/84; PULSE 112; RESP 16; TEMP 36.1; O2SAT 100; BMI 20.7
--- NOTE | 2020-09-03 04:06 | ED.DCSUM_ITS ---
- ER Visit Summary Date of Service: 09/03/20 Chief Complaint: [Suicidal ideation] History of Present Illness: The patient is a 20 F [presents to the emergency department via police escort. Patient states that a friend called the police on her tonight who claimed that patient broke into the house she was at.] Patient states that she did not break into the house but that her aunt let her in. Patient apparently told police she was having suicidal ideations and wanted to go to a psychiatric facility. Patient has been using methamphetamines. She denies alcohol use. Patient states that she is afraid to go to sleep because she has night terrors. Patient recently treated for urinary tract infection and states that she has bronchitis. Patient states she has had Covid negative test within the last 2 weeks. She denies any fevers. Patient does not have a plan on what she would do to harm herself. Physical Examination: [HEENT-PERRLA, EOMI. Cranial nerves II through XII grossly intact. TMs clear. Mucous membranes moist. No adenopathy. Cardiovascular-regular rate and rhythm without murmur or ectopy Lungs-clear to auscultation, chest wall stable without crepitus or subcu emphysema Abdomen-normoactive bowel sounds, soft, nontender, no rebound or rigidity, no peritoneal signs. Extremities-intact ?4, normal range of motion, normal pulses, atraumatic] Psych exam-patient admits to suicidal ideation. She denies homicidal ideation. She denies hallucinations. Patient does have flight of ideas. Patient has pressured speech. Test Results: [CBC with differential is normal. Chemistries unremarkable. hCG was negative. Toxicology screen positive for amphetamines as well as benzos and marijuana. Alcohol was negative.] Emergency Department Course and Treatment: [Patient will be evaluated by crisis in the department] Treatment Plan: [Pending evaluation by crisis. Care of patient turned over to morning physician awaiting evaluation by crisis and final disposition.] Disposition: [Pending] Impression: [Suicidal ideation Psychosis Illicit drug use] This note was generated with [employer] software. It may contain incorrect words, spelling, and punctuation that were not noted in review of the chart prior to signing ED Disposition - Plan for ED Patient: Referrals: Amarilis Berry WAREHOUSE FREIGHT HANDLER, WAREHOUSE FREIGHT HANDLER-C [Primary Care Provider] -
[2020-09-03 04:34] LABS: Absolute Lymphocyte Count 2.65 X10^3/uL (0.83-4.51); Absolute Neutrophil Count 4.9 X10^3/uL (2.0-7.7); Basophil# 0.07 X10^3/uL; Basophil% 0.8 % (0-1); Eosinophil# 0.13 X10^3/uL; Eosinophils% 1.5 % (0-5); Hematocrit 32.6 % (37-47); Hemoglobin 10.1 g/dL (12.0-15.0); Lymphocyte # 2.65 X10^3/ul (4.0); Lymphocyte % 31.5 % (19-41); Mean Corpuscular Hgb 29.3 pg (27.0-32.0); Mean Corpuscular Volume 94.5 fL (81-99); Mean Platelet Vol. 9.2 fl (6.2-12.0); Monocyte% 7.1 % (0-10); NRBC Flagged by Analyzer 0 % (0-5); Neutrophil # 4.92 X10^3/uL (2.7-7.7); Neutrophil % 58.6 % (47-70); Platelet Count 483 K/mm3 (150-450); RBC Distribution Width CV 13.3 % (11.6-14.6); RBC Distribution Width SD 46.5 fl (35.1-43.9); Red Blood Count 3.45 M/mm3 (4.2-5.4); White Blood Count 8.4 K/mm3 (4.4-11.0)
[2020-09-03 04:37] LABS: Anion Gap 6 (5-15); BUN 15 mg/dL (7-18); BUN/Creat Ratio 17.5 RATIO (10-20); Calcium,Total 9.2 mg/dL (8.5-10.1); Chloride 106 mmol/L (98-107); Creatinine, Serum 0.86 mg/dL (0.55-1.02); EST Glomerular Filtration Rate 88 mL/min (>60); Est Glom Filt Rate - Afr Amer 107 mL/min (>60); Estimated Creatinine Clearance 96.99 ml/min; Glucose 111 mg/dL (74-106); Potassium 3.7 mmol/L (3.5-5.1); Sodium Level 139 mmol/L (136-145)
[2020-09-03 04:40] LABS: Amphetamine Urine VISTA POSITIVE (<1000 ng/mL); Barbiturate Urine VISTA NEGATIVE (< 200 ng/mL); Benzodiazepine Urine VISTA POSITIVE (< 200 ng/mL); Cocaine Urine VISTA NEGATIVE (< 300 ng/mL); Ecstacy Urine VISTA NEGATIVE (< 500 ng/mL); Methadone Urine VISTA NEGATIVE (< 300 ng/mL); PCP Urine VISTA NEGATIVE (< 25 ng/mL); THC Urine VISTA POSITIVE (< 50 ng/mL); Vista UDS pH Range 5
[2020-09-03 04:43] LABS: Internal QC Validated? YES +Cl - CLEAR BKGD; Pregnancy, Serum, hCG Quali. NEGATIVE Negative
[2020-09-03 04:44] VITALS: RESP 17
[2020-09-03 04:51] LABS: Alcohol, Blood (Medical)-Serum < 3.0 mg/dL
--- NOTE | 2020-09-03 05:26 | ED.RN ---
PAGED MAYTE GOODRICH IS FIBERGLASS FABRICATOR
[2020-09-03 05:44] VITALS: RESP 15
[2020-09-03 06:00] VITALS: RESP 18
--- NOTE | 2020-09-03 06:22 | ED.RN ---
CRISIS CALLED AND SPEAKING WITH PATIENT AT THIS TIME
[2020-09-03 07:34] LABS: AST(SGOT) 22 U/L (15-37); Alanine Aminotransfer ALT/SGPT 49 U/L (13-56); Albumin, Serum 3.5 g/dL (3.2-5.0); Alkaline Phosphatase 65 U/L (45-117); Bilirubin, Direct 0.09 mg/dL (0.00-0.30); Globulin 3.9 g/dL (2.2-4.2); Protein, Total 7.4 g/dL (6.4-8.2)
[2020-09-03 11:10] VITALS: BP 134/68; PULSE 70; TEMP 36.7; O2SAT 97
--- NOTE | 2020-09-03 11:36 | CM.ED ---
Social Work Telephone call from Gabriela rojas. Patient has been accepted by [facility]. Medical team updated. Promise Stephen MSW, JENN
== END 2020-09-03 11:40 ==
LOC: ED 04:10
PROVIDERS: Emergency Medicine; Emergency Provider Emergency Medicine; PCP Nurse Practitioner Family
DX: R45.851 Suicidal ideations (principal); F29 Unspecified psychosis not due to a substance or known physiological condition; R05 Cough; F15.90 Other stimulant use, unspecified, uncomplicated; F12.90 Cannabis use, unspecified, uncomplicated; J45.909 Unspecified asthma, uncomplicated
CPT/HCPCS: 80048; 80076; 80307; 80320; 84703; 85025; 87426; 99285; G0480

== ENCOUNTER 2022-05-08 00:50 | Emergency (ER) | payer MEDICAID, SELFPAY ==
[2022-05-08 00:51] VITALS: BP 123/73; PULSE 85; RESP 16; TEMP 36.4; O2SAT 98; BMI 30.9
--- NOTE | 2022-05-08 05:41 | EDS_ITS ---
HPI History of Present Illness Chief Complaint: Ear Problem Narrative Narrative: I signed up for the patient but prior to my ability to get back to her room and evaluate her she left before being seen [facility] Medical History (Updated 08/27/20 @ 00:00 by Ghassan Salas) Asthma History of pneumonia History of substance abuse Allergy/AdvReac Type Severity Reaction Status Date / Time amoxicillin [Amoxicillin] Allergy NOT SURE, Verified 05/08/22 00:55 WAS A BABY Family History (Updated 06/03/18 @ 14:52 by Mirela De La Garza) Mother Depression Substance abuse Brother Depression Grandfather Substance abuse Social History (Updated 06/03/18 @ 14:54 by Mirela De La Garza) Smoking Status: Current every day smoker tobacco type: cigarettes and e- cigarettes Tobacco: How many years used: 4 alcohol intake: former year quit: 2015 substance use type: former substance user 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 use: 04/09/18 and methamphetamine what type of physical activity do you participate in: yoga, aerobics and weight training frequency: 1-2 times per week EXAM Physical Exam Const Vital Signs: 05/08/22 00:51 Temperature 97.6 F L Temperature Source Temporal Pulse Rate 85 Respiratory Rate 16 Blood Pressure 123/73 H Blood Pressure Mean 89 Pulse Ox 98 Oxygen Delivery Method Room Air Discharge Plan Triage Chief Complaint: Ear Problem ED Provider: Luis Enrique Bautista Dx/Rx/DC Orders Primary Care Provider: Amarilis Berry SHOE REPAIRMAN Disposition Disposition: LEFT WITHOUT BEING SEEN Discharge Date/Time: 05/08/22 01:47
== END 2022-05-08 01:47 | disposition left against medical advice (07) ==
LOC: ED 01:47
PROVIDERS: Emergency Provider Emergency Medicine; PCP Nurse Practitioner Family; Visit Provider Emergency Medicine
DX: Z53.21 Procedure and treatment not carried out due to patient leaving prior to being seen by health care provider (principal); F17.210 Nicotine dependence, cigarettes, uncomplicated; J45.909 Unspecified asthma, uncomplicated; F17.290 Nicotine dependence, other tobacco product, uncomplicated
CPT/HCPCS: 99281

== ENCOUNTER 2022-06-14 20:34 | Emergency (ER) | payer MEDICAID, SELFPAY ==
[2022-06-14 20:36] VITALS: BP 129/93; PULSE 90; RESP 18; TEMP 35.9; O2SAT 98; BMI 29.0
--- NOTE | 2022-06-14 20:42 | EDS_ITS ---
HPI HPI - URI History of Present Illness Chief Complaint: Sore Throat Detail of Chief Complaint: Sore throat Informant: patient Onset/Context/Timing Onset: Days Context: Sudden Onset Timing: Intermittent Quality: Pain Location: Throat Current Severity: Mild Maximum Severity: Moderate Worsened by: Swallowing, Eating Solids and Drinking Liquids Relieved by: Not Relieved By Tylenol or NSAIDs Associated Symptoms Associated Symptoms: Negative for Nasal Congestion, Headache, Sinus Pressure, Myalgias, Nausea, Vomiting, Diarrhea, Shortness of Breath, Chest Pain, Nonproductive cough, Hemoptysis or Productive Cough Narrative Narrative: Patient is a 20-year-old female presents with sore throat. She had a documented fever. She denies rhinorrhea or cough. No ill contacts. She denies headache. She denies ocular symptoms. Specifically denies photophobia. Denies neck pain or neck stiffness. Prior similar symptoms: No Recent Illness/Hospitalization: No ROS ROS ED Constitutional Constitutional ED: Reports fever(s); Denies chills, subjective, sweats or weight loss Eyes Eyes: Denies blurry vision, change in vision or diplopia ENT ENT ED: Reports sore throat; Denies ear pain or rhinorrhea Cardiovascular Cardiovascular: Denies chest pain, orthopnea, palpitations or paroxysmal nocturnal dyspnea Respiratory/Chest Respiratory/Chest: Denies cough, dyspnea, dyspnea on exertion, orthopnea or paroxysmal nocturnal dyspnea Neurologic Neurologic: Denies headache(s) Allergic/Immunologic Allergic/Immunologic ED: Denies mouth swelling or tongue swelling [facility] Medical History Asthma History of pneumonia History of substance abuse Allergy/AdvReac Type Severity Reaction Status Date / Time amoxicillin [Amoxicillin] Allergy NOT SURE, Verified 06/14/22 20:38 WAS A BABY Family History Mother Depression Substance abuse Brother Depression Grandfather Substance abuse Social History Smoking Status: Current every day smoker tobacco type: cigarettes and e- cigarettes Tobacco: How many years used: 4 alcohol intake: former year quit: 2015 substance use type: former substance user 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 use: 04/09/18 and methamphetamine what type of physical activity do you participate in: yoga, aerobics and weight training frequency: 1-2 times per week EXAM Physical Exam Const Vital Signs: 06/14/22 20:36 Temperature 96.6 F L Temperature Source Temporal Pulse Rate 90 Respiratory Rate 18 Blood Pressure 129/93 H Blood Pressure Mean 105 Pulse Ox 98 Oxygen Delivery Method Room Air Positive well nourished, well developed and obese General Appearance ED: well developed and NAD; Negative for pallor Nutritional Appearance: obese HEENT Reports moist mucous membranes HEENT Narrative: There is slight erythema the posterior pharynx without exudate. Uvula is midline. The left tonsil may be slightly larger than the right. There is no evidence of peritonsillar cellulitis or abscess. There is no dysphonia. There is no trismus. normocephalic and atraumatic Eyes PERRL and EOMs intact bilaterally General Eye ED: Negative for pale conjunctiva Neck no lymphadenopathy, supple, no meningeal signs and no JVD Neck Narrative: Trachea is midline. There is no inspiratory expiratory stridor. Resp normal respiratory effort and clear to auscultation bilaterally Cardio S1 normal heart sound, S2 normal heart sound and no murmurs Rate: regular rate Rhythm: regular rhythm Neuro oriented x3 and CN's II-XII intact bilaterally Sensorium / Orientation: alert Psych mental status grossly normal Skin General Skin Exam: Negative for jaundice or pallor Lesions: no lesions Rashes: no rashes MDM MDM MDM Narrative Medical decision making narrative: Patient has a Centor score of 2. Will obtain rapid strep. If positive will treat with erythromycin since she apparently has allergy to amoxicillin. Otherwise treatment will be symptomatic. Lab Data Attestation: I reviewed the patient's lab results. Lab results narrative: Rapid strep was negative. Discharge Plan Triage Chief Complaint: Sore Throat ED Provider: Wesly Davenport Dx/Rx/DC Orders Clinical Impression: Acute pharyngitis Instructions: ED Pharyngitis, Report Pending, ED Pharyngitis, Viral Primary Care Provider: Amarilis Berry NP Referrals: Amarilis Berry B[employer]T MACHINE OPERATOR, BOL[employer] MACHINE OPERATOR-C [Primary Care Provider] - 1 Week if not improving Activity Restrictions/Additional Instructions: 1. Salt water gargles 4-6 times a day. 2. Chloraseptic spray or Cepastat lozenges for throat discomfort as instructed on bottle/box Disposition Disposition: Home, Self Care
== END 2022-06-14 21:25 | disposition home or self-care (01) ==
PROVIDERS: Emergency Provider Emergency Medicine; PCP Nurse Practitioner Family; Visit Provider Emergency Medicine
DX: J02.9 Acute pharyngitis, unspecified (principal); F17.210 Nicotine dependence, cigarettes, uncomplicated; F17.290 Nicotine dependence, other tobacco product, uncomplicated; E66.9 Obesity, unspecified; Z68.29 Body mass index [BMI] 29.0-29.9, adult
CPT/HCPCS: 87880; 99282

== ENCOUNTER 2022-12-14 14:50 | Emergency (ER) | payer MEDICAID, SELFPAY ==
[2022-12-14 14:51] VITALS: BP 126/111; PULSE 105; RESP 18; TEMP 37.2; O2SAT 98; BMI 26.7
[2022-12-14 15:18] LABS: Mucous, Urine 0 SEEN /hpf (<or=2+)
--- NOTE | 2022-12-14 15:19 | ED.VIS.FEGU ---
HPI HPI - Female History of Present Illness Chief Complaint: Complaint Detail of Chief Complaint: . Flank pain. Informant: patient Bleeding Issue: Negative for Vaginal bleeding or Passing clots Maximum Severity: Spotting Associated Symptoms Associated Symptoms: Positive for Dysuria, Frequency and Urgency; Negative for Hematuria Narrative Narrative: 21-year-old female history of prior pyelonephritis. States since night she has had urinary tract symptoms and now the flank pain. No vomiting or diarrhea. No vaginal bleeding or discharge. Does not believe that does not know if she is or not. Denies any fever. She has had similar symptoms before. No gross hematuria. Prior similar symptoms: Yes Recent Illness/Hospitalization: No PFSH PFSH Medical History Asthma History of pneumonia History of substance abuse Home Medications cephalexin 500 mg capsule 500 mg PO Q6 10 days #40 CAPSULES 12/14/22 [Rx Last Taken Unknown] Allergy/AdvReac Type Severity Reaction Status Date / Time amoxicillin [Amoxicillin] Allergy NOT SURE, Verified 12/14/22 14:51 WAS A BABY Family History Mother Depression Substance abuse Brother Depression Grandfather Substance abuse Social History Smoking Status: Current every day smoker tobacco type: cigarettes and e-cigarettes Tobacco: How many years used: 4 alcohol intake: former year quit: 2015 substance use type: former substance user 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 Review of Systems ROS Unobtainable: Denies due to encephalopathy Constitutional Constitutional ED: Denies chills or fever(s) Eyes Eyes: Denies blurry vision ENT ENT ED: Denies ear pain Cardiovascular Cardiovascular: Denies chest pain Respiratory/Chest Respiratory/Chest: Denies cough or dyspnea Gastrointestinal Gastrointestinal: Reports nausea; Denies abdominal pain, constipation, diarrhea, melena or vomiting Genitourinary Genitourinary ED: Reports dysuria and urinary frequency; Denies hematuria Musculoskeletal Musculoskeletal: Denies arthralgias Integumentary Denies abscess Neurologic Neurologic: Denies headache(s) Psychiatric Psychiatric: Denies anxiety Endocrine Endocrinology: Denies heat intolerance Hematologic/Lymphatic Hematologic/Lymphatic: Denies easy bleeding Allergic/Immunologic Allergic/Immunologic ED: Denies mouth swelling or tongue swelling EXAM Physical Exam Narrative Exam Narrative: 22-year-old female vital signs stable afebrile. Patient clinically looks well. Is not septic or toxic. H EENT exam unremarkable. Moist membranes. Lungs clear to auscultation. Heart regular rhythm no murmur. Abdomen soft nontender normal bowel sounds no peritoneal signs. Back complaining of flank pain but no CVA tenderness. No signs of trauma or bruising. Moving all 4 extremities. Nontender no edema. Neurologically she is awake and alert. Const Vital Signs: 12/14/22 14:51 Temperature 98.9 F Temperature Source Temporal Pulse Rate 105 H Respiratory Rate 18 Blood Pressure 126/111 H Blood Pressure Mean 116 Pulse Ox 98 Oxygen Delivery Method Room Air Positive well nourished and well developed; Negative for obese, cachectic, contractures or unkempt General Appearance ED: well developed and NAD; Negative for unkempt, cachectic, contractures or odor of alcohol detected Nutritional Appearance: Negative for cachectic or obese HEENT Reports moist mucous membranes; Denies dry mucous membranes Negative for trauma or tenderness Mouth ED: No dry mucous membranes Mouth: No dry mucous membranes Eyes PERRL and EOMs intact bilaterally General Eye ED: Negative for pale conjunctiva or scleral icterus Neck no lymphadenopathy, supple and no JVD General: Negative for other Thyroid: Negative for tender Lymph Lymphatic: Negative for other Chest Wall inspection of chest normal and palpation of chest normal Chest: Negative for other Resp normal respiratory effort and clear to auscultation bilaterally Effort and Inspection: Negative for pain with movement Auscultation: Negative for rales, rhonchi or wheezes Cardio regular rate, regular rhythm, S1 normal heart sound, no murmurs and no JVD GI normal to inspection, nondistended, normoactive bowel sounds, soft to palpation, non-tender, non-distended and no masses Auscultation: normoactive bowel sounds Palpation: Negative for tender, guarding or rigid Back/Spine no CVA tenderness General Back: Negative for CVA tenderness Cervical Spine: Negative for cervical spine tenderness Thoracic Spine / Upper Back: Negative for thoracic spinal tenderness Lumbar Spine / Lower Back: Negative for lumbar spinal tenderness Sacrum: Negative for other Extremity normal to inspection and full ROM General Extremety ED: Negative for edema or tenderness General Extremity: Negative for edema Neuro oriented x3 and CN's II-XII intact bilaterally Sensorium / Orientation: alert, oriented to person and oriented to place; Negative for oriented to time, confused, lethargic or stuporous Motor Exam: strength 5/5 throughout Psych mental status grossly normal Appearance: Negative for unkempt Attitude: No agitated Speech: No other Mood & Affect: anxious; Negative for depressed or tearful Skin no rashes or lesions noted and no wounds General Skin Exam: Negative for jaundice Rashes: No rashes noted Trauma: Negative for other MDM MDM MDM Narrative Medical decision making narrative: 22-year-old female clinically I think she is urinary tract infection may have early pyelonephritis. She is afebrile. She does not look septic or toxic. She is not dehydrated. She will be treated with IV Rocephin. Toradol for pain. She has had a history of substance abuse in the past I do not think narcotics would be a good idea. Urinalysis is being obtained. Repeat exam patient is doing well at 3:50 PM. She and I discussed her urinalysis results. She is receiving a dose of IV Rocephin. She received Toradol for pain. She has a history of substance abuse. She will be instructed to use Tylenol Motrin for pain. Fluids and rest. Keflex 1 pill 4 times a day for 10 days and return if feeling worse. Follow-up with her primary care physician. Lab Data Attestation: I reviewed the patient's lab results. Lab results narrative: Urinalysis consistent with a urinary tract infection with 25-50 red cells. 25-50 white cells. 3+ bacteria. Urine culture will be sent. Urine test negative. Labs: Laboratory Results - last 24 hr 12/14/22 12/14/22 15:13 15:13 Urine Color Yellow Urine Clarity Cloudy Urine pH 7.0 Ur Specific [place] 1.010 Urine Protein 100 H Urine Glucose (UA) Normal Urine Ketones Negative Urine Occult Blood 250 H Urine Nitrite Negative Urine Bilirubin Negative Urine Urobilinogen Normal Ur Leukocyte Esterase 500 H Urine RBC 25-50 SEEN Urine WBC 25-50 SEEN Ur Squamous Epith Cells 0-5 SEEN Urine Bacteria 3+ Urine Mucus 0 SEEN Urine Test Negative Discharge Plan Triage Chief Complaint: Complaint ED Provider: Tremayne Quiñonez Dx/Rx/DC Orders Clinical Impression: UTI (urinary tract infection), Pyelonephritis Instructions: ED Pyelonephritis, Female (Adult) Prescriptions: New cephalexin 500 mg capsule 500 mg PO Q6 10 Days Qty: 40 0RF Primary Care Provider: Sofiya Bro Referrals: Sofiya Bro MD [Primary Care Provider] - 3-5 Days if not improving Activity Restrictions/Additional Instructions: Plenty of fluids and rest. Motrin and Tylenol for pain. You have a urinary tract infection it may have gone up and your kidneys. The antibiotic Keflex 1 pill 4 times a day for 10 days. Follow-up with your doctor if not improving return if worse. Try to get a dose of antibiotic in tonight before you go to bed. Disposition Disposition: Home, Self Care
[2022-12-14 15:21] LABS: Color, Urine Yellow (Yellow); Glucose, Dipstick Normal (Normal); Ketone-Dipstick Negative (Negative); Leukocyte Esterase-Dipstick 500 /ul (Negative); Nitrite-Dipstick Negative (Negative); Occult Blood-Urine 250 /ul (Negative); Protein-Dipstick 100 mg/dl (Negative); Urine Bilirubin Dipstick Negative (Negative); Urine Clarity Cloudy (Clear); Urine Urobilinogen Normal (Normal)
[2022-12-14] MEDS: Ketorolac 30 MG/ML Syringe IV (15:27)
[2022-12-14 15:35] LABS: White Blood Cells 25-50 SEEN /hpf (0-5)
[2022-12-14 15:36] LABS: Bacteria 3+ /hpf (None Seen); Red Blood Cells-Urine 25-50 SEEN /hpf (0-5); Squamous Epithelial Cells - UA 0-5 SEEN /hpf (5-10)
[2022-12-14 15:39] LABS: Internal QC Validated? YES +Cl - CLEAR BKGD; Pregnancy, Urine Negative Negative
[2022-12-14] MEDS: Ceftriaxone 1 GM/50 ML BAG IV (15:51)
== END 2022-12-14 16:52 | disposition home or self-care (01) ==
PROVIDERS: Emergency Provider Emergency Medicine; PCP Internal Medicine; Visit Provider Emergency Medicine
DX: N12 Tubulo-interstitial nephritis, not specified as acute or chronic (principal); F17.210 Nicotine dependence, cigarettes, uncomplicated; J45.909 Unspecified asthma, uncomplicated; F17.290 Nicotine dependence, other tobacco product, uncomplicated
CPT/HCPCS: 81001; 81025; 87086; 87088; 87186; 96365; 96375; 99283; J7050; A4216

== ENCOUNTER 2023-01-16 05:13 | Emergency (ER) | payer MEDICAID, SELFPAY ==
[2023-01-16 05:14] VITALS: BP 142/83; RESP 16; TEMP 36.3; O2SAT 100; BMI 25.8
[2023-01-16 05:36] LABS: Mucous, Urine 0 SEEN /hpf (<or=2+)
[2023-01-16 05:39] LABS: Color, Urine Yellow (Yellow); Glucose, Dipstick Normal (Normal); Ketone-Dipstick Negative (Negative); Leukocyte Esterase-Dipstick 500 /ul (Negative); Nitrite-Dipstick Positive (Negative); Occult Blood-Urine 150 /ul (Negative); Protein-Dipstick 30 mg/dl (Negative); Specific Gravity, Urine 1.015 (1.002-1.030); Urine Clarity Cloudy (Clear); Urine Urobilinogen 8 mg/dl (Normal)
[2023-01-16 05:41] LABS: Urine Bilirubin Dipstick 3 mg/dL (Negative)
[2023-01-16 05:42] LABS: Internal QC Validated? YES +Cl - CLEAR BKGD; Pregnancy, Urine Negative Negative
[2023-01-16 05:47] LABS: Bacteria 4+ /hpf (None Seen); Red Blood Cells-Urine 10-25 SEEN /hpf (0-5); Squamous Epithelial Cells - UA 0-5 SEEN /hpf (5-10); White Blood Cells >100 SEEN /hpf (0-5)
[2023-01-16 05:48] LABS: Amorphous Sediment 2+
--- NOTE | 2023-01-16 06:07 | EX.ED.DYSGE1 ---
HPI History of Present Illness Chief Complaint: Complaint Narrative Narrative: Patient is a 22-year-old female who states she was seen roughly 1 month ago secondary to dysuria and found to have a urinary tract infection. She states she was placed on an antibiotic that she had to take 4 times a day. She states that because of the recurrent nature of the antibiotic she missed multiple doses. She states she is unsure if she ever got truly better from the previous infection. She states now in the last 1 to 2 days she has had urinary frequency urgency and dysuria. She is concerned for repeat UTI. She denies any vaginal discharge or concern for STD or [facility] Medical History Asthma History of pneumonia History of substance abuse Home Medications phenazopyridine 200 mg tablet (Pyridium) 200 mg PO TID 2 days #6 tabs 01/16/23 [Rx Last Taken Unknown] quetiapine 300 mg tablet (Seroquel) 300 mg PO DAILY 01/16/23 [History Last Taken Unknown] sulfamethoxazole 800 mg-trimethoprim 160 mg tablet (Bactrim DS) 1 tab PO BID 7 days #14 tabs 01/16/23 [Rx Last Taken Unknown] Allergy/AdvReac Type Severity Reaction Status Date / Time amoxicillin [Amoxicillin] Allergy NOT SURE, Verified 01/16/23 05:17 WAS A BABY Family History Mother Depression Substance abuse Brother Depression Grandfather Substance abuse Social History Smoking Status: Current every day smoker tobacco type: cigarettes and e-cigarettes Tobacco: How many years used: 4 alcohol intake: former year quit: 2016 substance use type: former substance user 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 use: 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/18 and methamphetamine what type of physical activity do you participate in: yoga, aerobics and weight training frequency: 1-2 times per week ROS ROS ED Constitutional Constitutional ED: Denies chills or fever(s) ENT ENT ED: Denies sore throat Cardiovascular Cardiovascular: Denies chest pain Respiratory/Chest Respiratory/Chest: Denies cough or dyspnea Gastrointestinal Gastrointestinal: Denies abdominal pain, diarrhea, nausea or vomiting Genitourinary Genitourinary ED: Reports dysuria and urinary frequency Musculoskeletal Musculoskeletal: Denies back pain Integumentary Denies rash Neurologic Neurologic: Denies headache(s) Hematologic/Lymphatic Hematologic/Lymphatic: Denies easy bleeding or easy bruising EXAM Physical Exam Const Vital Signs: 01/16/23 05:14 Temperature 97.3 F L Temperature Source Temporal Respiratory Rate 16 Blood Pressure 142/83 H Blood Pressure Mean 102 Pulse Ox 100 Oxygen Delivery Method Room Air Positive well nourished and well developed General Appearance ED: well developed Eyes PERRL and EOMs intact bilaterally Neck supple Resp normal respiratory effort and clear to auscultation bilaterally Cardio regular rate and regular rhythm GI non-distended GI Narrative: Slight suprapubic tenderness with palpation but no voluntary guarding or rigidity Auscultation: normoactive bowel sounds Palpation: soft Back/Spine no CVA tenderness Extremity normal to inspection Neuro oriented x3 and CN's II-XII intact bilaterally Sensorium / Orientation: alert Psych mental status grossly normal Skin no rashes or lesions noted MDM MDM MDM Narrative Medical decision making narrative: Patient arrived to the ER afebrile and in no acute distress. Her constellation of symptoms is most consistent with recurrent urinary tract infection. As she is not febrile or having CVA pain concern for systemic infection such as urosepsis or acute pyelonephritis is low. Also she denied vaginal discharge or concern for STD so I have low concern for pelvic inflammatory disease or a STD as a cause of her symptoms. A UA was obtained and does show +4 bacteria with greater than 100 white cells consistent with infection. Her culture from 1 month ago was reviewed and it was sensitive to Bactrim and as patient had a hard time taking the antibiotic multiple times a day we will use this antibiotic because it is only necessary to take twice a day. Based on the patient's symptoms and worsening urine sample she will be given a shot of Rocephin in the ER. However as she has no signs of urosepsis or pyelonephritis or concern for PID she does not need further evaluation and is otherwise safe for discharge History & Record Review Discussion w/independent historian: Patient and Significant other Lab Data Attestation: I reviewed the patient's lab results. Labs: Laboratory Results - last 24 hr 01/16/23 05:30 Urine Color Yellow Urine Clarity Cloudy Urine pH 8.0 Ur Specific [place] 1.015 Urine Protein 30 H Urine Glucose (UA) Normal Urine Ketones Negative Urine Occult Blood 150 H Urine Nitrite Positive H Urine Bilirubin 3 H Urine Urobilinogen 8 H Ur Leukocyte Esterase 500 H Urine RBC 10-25 SEEN Urine WBC >100 SEEN Ur Squamous Epith Cells 0-5 SEEN Amorphous Sediment 2+ Urine Bacteria 4+ Urine Mucus 0 SEEN Urine Test Negative Discharge Plan Triage Chief Complaint: Complaint ED Provider: Luis Enrique Bautista Dx/Rx/DC Orders Clinical Impression: Urinary tract infection, Former tobacco use, Depression with anxiety Instructions: Urinary Tract Infections in Women Prescriptions: New sulfamethoxazole-trimethoprim [Bactrim DS] 800-160 mg tablet 1 tab PO BID 7 Days Qty: 14 0RF phenazopyridine [Pyridium] 200 mg tablet 200 mg PO TID 2 Days Qty: 6 0RF No Action quetiapine [Seroquel] 300 mg Tablet 300 mg PO DAILY Primary Care Provider: Sofiya Bro Referrals: Sofiya Bro MD [Primary Care Provider] - Activity Restrictions/Additional Instructions: Please take the antibiotic as directed to help resolve your urinary tract infection. If you have worsening of symptoms or any further concerns please return to the hospital for repeat evaluation Disposition Disposition: Home, Self Care
[2023-01-16] MEDS: Ceftriaxone 1 GM Vial IM (06:18)
[2023-01-16 06:23] VITALS: BP 135/68; PULSE 72; RESP 18; O2SAT 98
== END 2023-01-16 06:31 | disposition home or self-care (01) ==
PROVIDERS: Emergency Provider Emergency Medicine; PCP Internal Medicine; Visit Provider Emergency Medicine
DX: N39.0 Urinary tract infection, site not specified (principal); F15.90 Other stimulant use, unspecified, uncomplicated; Z87.891 Personal history of nicotine dependence; F41.8 Other specified anxiety disorders
CPT/HCPCS: 81001; 81025; 87077; 87086; 87088; 87186; 96372; 99282

== ENCOUNTER 2023-03-12 16:36 | Emergency (ER) | payer MEDICAID, SELFPAY ==
[2023-03-12 16:37] VITALS: BP 130/99; PULSE 105; RESP 17; TEMP 36.2; O2SAT 100; BMI 22.5
--- NOTE | 2023-03-12 18:17 | EDS_ITS ---
HPI HPI - GI History of Present Illness Chief Complaint: Nausea/Vomiting Narrative Narrative: 2-year-old female presenting with nausea/vomiting. She states she feels like her kidneys are hurting earlier in the day but now they know her anymore. Patient states he has a history of kidney infections. She denies urinary complaints however. Patient states she started vomiting today and has not been able hold anything down. No cough or shortness of breath. Patient did not check her temperature but she took ibuprofen yesterday and believes she started sweating and a fever broke. Patient has not taken anything for fever today and she has been afebrile. She denies constipation or diarrhea. She does admit to chills. [facility] Medical History Asthma History of pneumonia History of substance abuse Home Medications phenazopyridine 200 mg tablet (Pyridium) 200 mg PO TID 2 days #6 tabs 01/16/23 [Rx Last Taken Unknown] quetiapine 300 mg tablet (Seroquel) 300 mg PO DAILY 01/16/23 [History Last Taken Unknown] sulfamethoxazole 800 mg-trimethoprim 160 mg tablet (Bactrim DS) 1 tab PO BID 7 days #14 tabs 01/16/23 [Rx Last Taken Unknown] cephalexin 500 mg capsule 500 mg PO Q12 #14 CAPSULES 03/12/23 [Rx Last Taken Unknown] ondansetron 4 mg disintegrating tablet 4 mg PO Q8H PRN PRN Nausea #14 tabs 03/12/23 [Rx Last Taken Unknown] Allergy/AdvReac Type Severity Reaction Status Date / Time amoxicillin [Amoxicillin] Allergy NOT SURE, Verified 01/16/23 05:17 WAS A BABY lavender (Lavandula Allergy Rash Verified 03/12/23 16:37 angustifolia) Family History Mother Depression Substance abuse Brother Depression Grandfather Substance abuse Social History Smoking Status: Current every day smoker tobacco type: e-cigarettes Tobacco: How many years used: 4 alcohol intake: former year quit: 2015 substance use type: former substance user 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 use: 04/09/18 and methamphetamine what type of physical activity do you participate in: yoga, aerobics and weight training frequency: 1-2 times per week ROS ROS ED Constitutional Constitutional ED: Reports chills and subjective ENT ENT ED: Denies rhinorrhea or sore throat Cardiovascular Cardiovascular: Denies chest pain Respiratory/Chest Respiratory/Chest: Denies cough or dyspnea Gastrointestinal Gastrointestinal: Reports nausea and vomiting Genitourinary Genitourinary ED: Denies dysuria or hematuria Musculoskeletal Musculoskeletal: Reports back pain Integumentary Denies abscess or Abrasions Neurologic Neurologic: Denies headache(s) or paresthesias Psychiatric Psychiatric: Denies anxiety or depression Endocrine Endocrinology: Denies polydipsia EXAM Physical Exam Const Vital Signs: 03/12/23 16:37 03/12/23 20:43 Temperature 97.1 F L Temperature Source Temporal Pulse Rate 105 H 105 H Respiratory Rate 17 15 Blood Pressure 130/99 H Blood Pressure Mean 109 Pulse Ox 100 100 Oxygen Delivery Method Room Air Positive well nourished General Appearance ED: Negative for pallor HEENT Reports moist mucous membranes normocephalic Eyes PERRL and EOMs intact bilaterally Resp normal respiratory effort and clear to auscultation bilaterally Auscultation: Negative for rales, rhonchi or wheezes Cardio regular rate and regular rhythm Back/Spine no CVA tenderness Neuro CN's II-XII intact bilaterally, moves all extremities and no sensory deficits noted Sensorium / Orientation: alert, oriented to person, oriented to place and oriented to time Motor Exam: strength 5/5 throughout Psych mental status grossly normal Skin General Skin Exam: Negative for jaundice or pallor MDM MDM MDM Narrative Medical decision making narrative: Patient presenting with nausea/vomiting. She subjectively might of had a fever yesterday. She has not had a fever today and she has not take anything that would mask a fever. Vital signs are stable and she is afebrile. Physical exam unremarkable. She does not have any CVA tenderness and she states that the pain she thought was in her kidneys is gone. She states she says stopped vomiting as well. Differential includes viral etiology, dehydration, electrolyte abnormalities, gastritis, UTI. Patient's abdominal exam is benign. Patient given IV Zofran 4 mg. We will obtain a rapid COVID influenza. CBC and CMP were obtained. CBC shows a slight leukocytosis at 12.0. Hemoglobin macular stable. Platelets are normal. Renal function electrolytes within normal limits with exception of potassium of 3.4. LFTs are normal. Patient does have a UTI and she was started on Keflex here. She is better after nausea and has been able to tolerate p.o. She is given a prescription for Keflex for home. Impression: 1. UTI 2 nausea/vomiting Lab Data Labs: Laboratory Results - last 24 hr 03/12/23 03/12/23 03/12/23 17:50 17:50 19:10 WBC 12.0 H RBC 4.21 Hgb 12.6 Hct 38.4 MCV 91.2 MCH 29.9 MCHC 32.8 RDW Std Deviation 44.4 H RDW Coeff of Jus 13.2 Plt Count 251 MPV 12.0 Immature Gran % (Auto) 0.800 Neut % (Auto) 80.2 H Lymph % (Auto) 9.8 L [place] % (Auto) 8.7 Eos % (Auto) 0.2 Baso % (Auto) 0.3 Absolute Neuts (auto) 9.6 H Absolute Lymphs (auto) 1.17 Nucleated RBC % 0 Sodium 138 Potassium 3.4 L Chloride 99 Carbon Dioxide 29.0 Anion Gap 10 BUN 12 Creatinine 0.49 L Estim Creat Clear Calc 172.16 Est GFR (MDRD) Af Amer 199 Est GFR (MDRD) Non-Af 165 BUN/Creatinine Ratio 24.5 H Glucose 108 H Calcium 9.9 Total Bilirubin 0.30 AST 12 L ALT 25 Alkaline Phosphatase 69 Total Protein 8.0 Albumin 3.3 Globulin 4.7 H Albumin/Globulin Ratio 0.7 L Urine Color Yellow Urine Clarity Sl. Cloudy Urine pH 6.0 Ur Specific [place] 1.020 Urine Protein 30 H Urine Glucose (UA) Normal Urine Ketones 150 A* Urine Occult Blood 250 H Urine Nitrite Positive H Urine Bilirubin Negative Urine Urobilinogen Normal Ur Leukocyte Esterase 500 H Urine RBC 0-5 SEEN Urine WBC 25-50 SEEN Ur Squamous Epith Cells 0 SEEN Urine Bacteria 2+ Urine Mucus 0 SEEN Urine Test Negative Discharge Plan Triage Chief Complaint: Nausea/Vomiting ED Provider: Robert Draper Dx/Rx/DC Orders Instructions: ED Cystitis Female Adult, ED Vomiting (Adult) Prescriptions: New ondansetron 4 mg tablet,disintegrating 4 mg PO Q8H PRN PRN (Reason: Nausea) Qty: 14 0RF cephalexin 500 mg capsule 500 mg PO Q12 Qty: 14 0RF No Action quetiapine [Seroquel] 300 mg Tablet 300 mg PO DAILY sulfamethoxazole-trimethoprim [Bactrim DS] 800-160 mg tablet 1 tab PO BID 7 Days Qty: 14 0RF phenazopyridine [Pyridium] 200 mg tablet 200 mg PO TID 2 Days Qty: 6 0RF Primary Care Provider: Sofiya Bro Referrals: Sofiya Bro MD [Primary Care Provider] - Disposition Disposition: Home, Self Care Discharge Date/Time: 03/12/23 20:44
[2023-03-12] MEDS: Ondansetron 4 MG/2 ML Vial IV (18:59)
[2023-03-12 19:22] LABS: Mucous, Urine 0 SEEN /hpf (<or=2+); Squamous Epithelial Cells - UA 0 SEEN /hpf (5-10)
[2023-03-12 19:22] LABS: Absolute Lymphocyte Count 1.17 X10^3/uL (0.83-4.51); Absolute Neutrophil Count 9.6 X10^3/uL (2.0-7.7); Basophil# 0.04 X10^3/uL; Basophil% 0.3 % (0-1); Eosinophil# 0.02 X10^3/uL; Eosinophils% 0.2 % (0-5); Hematocrit 38.4 % (37-47); Hemoglobin 12.6 g/dL (12.0-15.0); Lymphocyte # 1.17 X10^3/ul (0.83-4.51); Lymphocyte % 9.8 % (19-41); Mean Corp Hgb Conc 32.8 g/dL (32-36); Mean Corpuscular Hgb 29.9 pg (27.0-32.0); Mean Corpuscular Volume 91.2 fL (81-99); Monocyte# 1.04 X10^3/uL; Monocyte% 8.7 % (0-10); NRBC Flagged by Analyzer 0 % (0-5); Neutrophil # 9.61 X10^3/uL (2.7-7.7); Neutrophil % 80.2 % (47-70); Platelet Count 251 K/mm3 (150-450); RBC Distribution Width CV 13.2 % (11.6-14.6); RBC Distribution Width SD 44.4 fl (35.1-43.9); Red Blood Count 4.21 M/mm3 (4.2-5.4)
[2023-03-12 19:23] LABS: Color, Urine Yellow (Yellow); Glucose, Dipstick Normal (Normal); Leukocyte Esterase-Dipstick 500 /ul (Negative); Nitrite-Dipstick Positive (Negative); Occult Blood-Urine 250 /ul (Negative); Protein-Dipstick 30 mg/dl (Negative); Urine Bilirubin Dipstick Negative (Negative); Urine Clarity Sl. Cloudy (Clear); Urine Urobilinogen Normal (Normal)
[2023-03-12 19:33] LABS: Ketone-Dipstick 150 mg/dl (Negative)
[2023-03-12 19:35] LABS: Bacteria 2+ /hpf (None Seen); Internal QC Validated? YES +Cl - CLEAR BKGD; Pregnancy, Urine Negative Negative; Red Blood Cells-Urine 0-5 SEEN /hpf (0-5); White Blood Cells 25-50 SEEN /hpf (0-5)
[2023-03-12 19:38] LABS: ALB/GLOB Ratio 0.7 RATIO (0.9-2.4); AST(SGOT) 12 U/L (15-37); Alanine Aminotransfer ALT/SGPT 25 U/L (13-56); Albumin, Serum 3.3 g/dL (3.2-5.0); Alkaline Phosphatase 69 U/L (45-117); Anion Gap 10 (5-15); BUN 12 mg/dL (7-18); BUN/Creat Ratio 24.5 RATIO (10-20); Calcium,Total 9.9 mg/dL (8.5-10.1); Chloride 99 mmol/L (98-107); Creatinine, Serum 0.49 mg/dL (0.55-1.02); EST Glomerular Filtration Rate 165 mL/min (>60); Est Glom Filt Rate - Afr Amer 199 mL/min (>60); Estimated Creatinine Clearance 172.16 ml/min; Globulin 4.7 g/dL (2.2-4.2); Glucose 108 mg/dL (74-106); Potassium 3.4 mmol/L (3.5-5.1); Sodium Level 138 mmol/L (136-145)
[2023-03-12] MEDS: Cephalexin 250 MG Capsule 500 MG PO (20:40)
[2023-03-12 20:43] VITALS: PULSE 105; RESP 15; O2SAT 100
== END 2023-03-12 20:44 | disposition home or self-care (01) ==
PROVIDERS: Emergency Provider Student in an Organized Health Care Education/Training Program; PCP Internal Medicine; Visit Provider Student in an Organized Health Care Education/Training Program
DX: N39.0 Urinary tract infection, site not specified (principal); R11.2 Nausea with vomiting, unspecified; F17.290 Nicotine dependence, other tobacco product, uncomplicated
CPT/HCPCS: 80053; 81001; 81025; 85025; 87428; 96374; 99284; A4216; J2405

== ENCOUNTER 2023-08-01 08:34 | Emergency (ER) | payer MEDICAID, SELFPAY ==
[2023-08-01 08:35] VITALS: BP 141/93; PULSE 120; RESP 16; TEMP 36.2; O2SAT 98; BMI 22.5
--- NOTE | 2023-08-01 08:51 | ED.VIS.DENTA ---
HPI History of Present Illness Chief Complaint: Dental Narrative Narrative: Patient presents with cough and congestion bilateral ear pain and dental pain. No fevers. This has been going on for 2 days dental pain has been ongoing on and off for months. [facility] Medical History Asthma History of pneumonia History of substance abuse Home Medications phenazopyridine 200 mg tablet (Pyridium) 200 mg PO TID 2 days #6 tabs 01/16/23 [Rx Last Taken Unknown] quetiapine 300 mg tablet (Seroquel) 300 mg PO DAILY 01/16/23 [History Last Taken Unknown] sulfamethoxazole 800 mg-trimethoprim 160 mg tablet (Bactrim DS) 1 tab PO BID 7 days #14 tabs 01/16/23 [Rx Last Taken Unknown] cephalexin 500 mg capsule 500 mg PO Q12 #14 CAPSULES 03/12/23 [Rx Last Taken Unknown] ondansetron 4 mg disintegrating tablet 4 mg PO Q8H PRN PRN Nausea #14 tabs 03/12/23 [Rx Last Taken Unknown] clindamycin HCl 150 mg capsule 150 mg PO TID #21 caps 08/01/23 [Rx Last Taken Unknown] Allergy/AdvReac Type Severity Reaction Status Date / Time amoxicillin [Amoxicillin] Allergy NOT SURE, Verified 08/01/23 08:34 WAS A BABY lavender (Lavandula Allergy Rash Verified 08/01/23 08:34 angustifolia) Family History Mother Depression Substance abuse Brother Depression Grandfather Substance abuse Social History Smoking Status: Current every day smoker tobacco type: cigarettes Tobacco: How many years used: 4 alcohol intake: former year quit: 2015 substance use type: former substance user 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 use: 04/09/18 and methamphetamine what type of physical activity do you participate in: yoga, aerobics and weight training frequency: 1-2 times per week ROS ROS ED ROS Narrative Past medical history: Reviewed Medications: Reviewed Social history: Noncontributory Review of systems: All systems negative except as indicated General: No fever Eyes: No visual changes ENT: As in HPI Neck: No neck pain Cardiovascular: No chest pain Respiratory: No shortness of breath or cough Gastrointestinal: No abdominal pain, nausea vomiting or diarrhea Genitourinary: No dysuria Musculoskeletal: Denies myalgias no difficulty with ambulation Skin: No rash Neurological: No memory loss, confusion or any focal weakness EXAM Physical Exam Narrative Exam Narrative: Physical exam General: Appears comfortable. She does not appear in any distress. Head: Normocephalic, Atraumatic Eyes: Conjunctiva not pale ENT: Slight bilateral TM erythema. No obvious bulging. She has nasal congestion and swollen nasal turbinates. She has postnasal drip. Her tonsils are slightly enlarged but there is no exudates. She has normal soft palate and uvula with a normal voice. She has widespread dental decay especially the right left central tooth is quite decayed with tenderness in the periapical region and slight swelling. No obvious abscess. Neck: Supple, Nontender, No lymphadenopathy Cardiovascular: Regular rate, Regular rhythm Respiratory: No distress, CTA bilaterally Abdomen: Soft, Nontender, Nondistended Back: Nontender, Normal Inspection. Negative for: CVA tenderness Extremities: Nontender, No edema Skin: Normal color, No rash Const Vital Signs: 08/01/23 08:35 Temperature 97.1 F L Temperature Source Temporal Pulse Rate 120 H Respiratory Rate 16 Blood Pressure 141/93 H Blood Pressure Mean 109 Pulse Ox 98 Oxygen Delivery Method Room Air MDM MDM MDM Narrative Medical decision making narrative: Patient has a dental infection. She also likely has an upper respiratory infection. I will treat with clindamycin since she is allergic to penicillin. Otherwise the upper respiratory infection is likely viral. She will be discharged in stable condition. Discharge Plan Triage Chief Complaint: Dental ED Provider: Dariusz Reyna Dx/Rx/DC Orders Clinical Impression: Acute upper respiratory infection, Dental infection Instructions: ED Dental Pain, ED Dental Cavity, ED URI, Viral, No Abx (Adult) Prescriptions: New clindamycin HCl 150 mg capsule 150 mg PO TID Qty: 21 0RF No Action quetiapine [Seroquel] 300 mg Tablet 300 mg PO DAILY sulfamethoxazole-trimethoprim [Bactrim DS] 800-160 mg tablet 1 tab PO BID 7 Days Qty: 14 0RF phenazopyridine [Pyridium] 200 mg tablet 200 mg PO TID 2 Days Qty: 6 0RF ondansetron 4 mg tablet,disintegrating 4 mg PO Q8H PRN PRN (Reason: Nausea) Qty: 14 0RF cephalexin 500 mg capsule 500 mg PO Q12 Qty: 14 0RF Primary Care Provider: Sofiya Bro Referrals: Sofiya Bro MD [Primary Care Provider] - 3-5 Days Disposition Disposition: Home, Self Care
== END 2023-08-01 09:10 | disposition home or self-care (01) ==
LOC: ED 08:58
PROVIDERS: Emergency Provider Emergency Medicine; PCP Internal Medicine; Visit Provider Emergency Medicine
DX: K04.7 Periapical abscess without sinus (principal); J06.9 Acute upper respiratory infection, unspecified; F17.210 Nicotine dependence, cigarettes, uncomplicated
CPT/HCPCS: 99283

== ENCOUNTER 2024-03-23 16:31 | Emergency (ER) | payer MEDICAID, SELFPAY ==
[2024-03-23 16:31] VITALS: BP 133/83; PULSE 90; RESP 16; TEMP 36.8; O2SAT 98; BMI 28.7
--- NOTE | 2024-03-23 16:52 | EX.ED.DYSGE1 ---
HPI History of Present Illness Chief Complaint: GI Bleed Informant: patient Narrative Narrative: Patient is 31 weeks . She went to urinate this afternoon, and she states surprisingly a small amount of blood came out of her anus. This has not happened before. Her last bowel movement was yesterday and it was normal without blood. She has no symptoms of anemia, no abdominal discomfort, no vaginal bleeding or discharge, and no anal pain but she has had some hemorrhoids off and on that she has been feeling recently. She states occasionally she gets really warm and this causes her to vomit, which happened yesterday, she did notes no blood or coffee-ground emesis, she is not concerned about the cause of the vomiting states this has happened my whole adult life. [facility] Medical History Asthma History of pneumonia History of substance abuse Home Medications ?Medication ?Instructions ?Recorded ?Last Taken ?Type phenazopyridine 200 mg tablet 200 mg PO TID 2 days #6 tabs 01/16/23 Unknown Rx (Pyridium) ondansetron 4 mg disintegrating 4 mg PO Q8H PRN PRN Nausea #14 tabs 03/12/23 Unknown Rx tablet hydrocortisone 2.5 % topical cream [address] QHS PRN hemorrhoids 03/23/24 Unknown Rx with perineal applicator #30 grams (Proctosol HC) vit no.95-ferrous 1 tab PO DAILY 03/23/24 Unknown History fumarate 28 mg-folic acid 800 mcg tablet () Allergy/AdvReac Type Severity Reaction Status Date / Time amoxicillin (Amoxicillin) Allergy NOT SURE, Verified 03/23/24 16:34 WAS A BABY lavender (Lavandula Allergy Rash Verified 03/23/24 16:34 angustifolia) Family History Mother Depression Substance abuse Brother Depression Grandfather Substance abuse Social History Smoking Status: Current every day smoker tobacco type: cigarettes Tobacco: How many years used: 4 alcohol intake: former year quit: 2015 substance use type: former substance user 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 use: 04/09/18 and methamphetamine what type of physical activity do you participate in: yoga, aerobics and weight training frequency: 1-2 times per week ROS ROS ED Constitutional Constitutional ED: Denies chills or fever(s) Eyes Eyes: Denies change in vision or diplopia ENT ENT ED: Denies rhinorrhea or sore throat Cardiovascular Cardiovascular: Denies chest pain, lightheadedness, palpitations or syncope Respiratory/Chest Respiratory/Chest: Denies cough or dyspnea Gastrointestinal Gastrointestinal: Reports as per HPI and rectal bleeding; Denies abdominal pain, diarrhea or nausea Genitourinary Genitourinary ED: Denies dysuria or hematuria Musculoskeletal Musculoskeletal: Denies back pain or neck pain Integumentary Denies abscess or rash Neurologic Neurologic: Denies headache(s), paresthesias or weakness Psychiatric Psychiatric: Denies anxiety or suicidal thoughts EXAM Physical Exam Const Vital Signs: 03/23/24 16:31 Temperature 98.2 F Temperature Source Temporal Pulse Rate 90 Respiratory Rate 16 Blood Pressure 133/83 H Blood Pressure Mean 99 Pulse Ox 98 Oxygen Delivery Method Room Air Positive well nourished and well developed General Appearance ED: well developed and NAD HEENT Reports moist mucous membranes normocephalic and atraumatic Eyes PERRL and EOMs intact bilaterally Neck full ROM and supple Resp normal respiratory effort Cardio regular rate, regular rhythm and no murmurs GI non-tender and non-distended Auscultation: normoactive bowel sounds Palpation: soft Narrative: Rectal: Several nontender, nonthrombosed external hemorrhoids without active bleeding. No clots. No perianal tenderness. Examined with brazer electronic present. Extremity normal to inspection General Extremety ED: Negative for edema General Extremity: Negative for edema Neuro oriented x3, CN's II-XII intact bilaterally and no sensory deficits noted Sensorium / Orientation: awake and alert Motor Exam: strength 5/5 throughout Skin no rashes or lesions noted and no wounds MDM MDM MDM Narrative Medical decision making narrative: Patient reassured this is likely bleeding related to small external hemorrhoids, nothing looks thrombosed right now, I am not concerned about her clinical status enough to get blood counts, her vital signs are normal she has had no symptoms of anemia. Reassured her and prescribed her some hemorrhoid creams comfortable with that plan. Discharge Plan Triage Chief Complaint: GI Bleed ED Provider: Janusz Glover Dx/Rx/DC Orders Clinical Impression: Bleeding external hemorrhoids, Third trimester Instructions: ED Hemorrhoids Prescriptions: New hydrocortisone [Proctosol HC] 2.5 % cream with perineal applicator [address] QHS PRN (Reason: hemorrhoids) Qty: 30 0RF No Action phenazopyridine [Pyridium] 200 mg tablet 200 mg PO TID 2 Days Qty: 6 0RF ondansetron 4 mg tablet,disintegrating 4 mg PO Q8H PRN PRN (Reason: Nausea) Qty: 14 0RF PNV cmb#95-ferrous fumarate-FA [] 28 mg iron- 800 mcg tablet 1 tab PO DAILY Primary Care Provider: Sofiya Bro Referrals: Sofiya Bro MD [Primary Care Provider] - Activity Restrictions/Additional Instructions: May do sitz baths in warm water, and/or prescription hemorrhoid cream as needed for discomfort and/or bleeding. Print Language: Sammarinese Disposition Disposition: Home, Self Care
[2024-03-23 17:03] VITALS: BP 121/70; PULSE 72; RESP 14; TEMP 36.8; O2SAT 100
== END 2024-03-23 17:04 | disposition home or self-care (01) ==
LOC: ED 17:02
PROVIDERS: Emergency Provider Emergency Medicine; PCP Internal Medicine; Visit Provider Emergency Medicine
DX: O22.43 Hemorrhoids in pregnancy, third trimester (principal); F17.210 Nicotine dependence, cigarettes, uncomplicated; Z3A.31 31 weeks gestation of pregnancy; O99.333 Smoking (tobacco) complicating pregnancy, third trimester
CPT/HCPCS: 99282

== ENCOUNTER 2024-03-28 23:20 | Outpatient (CLI) | payer MEDICAID, SELFPAY ==
[2024-03-28 23:37] VITALS: BMI 29.2
[2024-03-28 23:39] VITALS: BP 132/74; PULSE 82; RESP 16; TEMP 36.6
--- NOTE | 2024-04-01 12:25 | OB.TRI.NOTE ---
HPI - General HPI Narrative [place], is a 23 F who presents at 31w3d for irregular contractions. PFSH PFSH Medical History Asthma History of pneumonia History of substance abuse Home Medications ?Medication ?Instructions ?Recorded ?Last Taken ?Type phenazopyridine 200 mg tablet 200 mg PO TID 2 days #6 tabs 01/16/23 Unknown Rx (Pyridium) ondansetron 4 mg disintegrating 4 mg PO Q8H PRN PRN Nausea #14 tabs 03/12/23 Unknown Rx tablet hydrocortisone 2.5 % topical cream 1 applic [place] QHS PRN hemorrhoids 03/23/24 Unknown Rx with perineal applicator #30 grams (Proctosol HC) vit no.95-ferrous 1 tab PO DAILY 03/23/24 Unknown History fumarate 28 mg-folic acid 800 mcg tablet () Allergy/AdvReac Type Severity Reaction Status Date / Time amoxicillin (Amoxicillin) Allergy NOT SURE, Verified 03/23/24 16:34 WAS A BABY lavender (Lavandula Allergy Rash Verified 03/23/24 16:34 angustifolia) Family History Mother Depression Substance abuse Brother Depression Grandfather Substance abuse Social History Smoking Status: Current every day smoker tobacco type: cigarettes Tobacco: How many years used: 4 alcohol intake: former year quit: 2015 substance use type: former substance user 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 use: 04/09/18 and methamphetamine what type of physical activity do you participate in: yoga, aerobics and weight training frequency: 1-2 times per week NST FHR Rate Baby A Baseline: 140 Variability:: Moderate Accelerations:: 15 x 15 Decelerations:: None NST Reactive:: Yes Uterine Activity:: Irregular Assessment & Plan (1) 31 weeks gestation of : (2) Irregular contractions: PLAN: Plan 1) No vaginal bleeding on unit, irregular contractions, no signs of active labor, BOW intact 2) D/C home 3) Follow up outpatient as scheduled.
== END 2024-03-29 00:10 | disposition home or self-care (01) ==
LOC: WPOUT 23:23 → WP 23:24
PROVIDERS: PCP Internal Medicine; Referring Provider Advanced Practice Midwife; Visit Provider Advanced Practice Midwife
DX: O47.03 False labor before 37 completed weeks of gestation, third trimester (principal); Z3A.31 31 weeks gestation of pregnancy
CPT/HCPCS: 59025; 59050; 99221; G0378

== ENCOUNTER 2024-05-06 16:19 | Inpatient (IN) | payer MEDICAID, SELFPAY ==
[2024-05-06] VITALS (95 sets, daily range): BP systolic 122–173; BP diastolic 65–103; PULSE 81–110; RESP 16–18; TEMP 36.4–37.1; O2SAT 92–100; BMI 32.5
[2024-05-06 15:49] LABS: Hematocrit 33.1 % (37-47); Hemoglobin 11.1 g/dL (12.0-15.0); Mean Corp Hgb Conc 33.5 g/dL (32-36); Mean Corpuscular Hgb 30.8 pg (27.0-32.0); Mean Corpuscular Volume 91.9 fL (81-99); Mean Platelet Vol. 11.6 fl (6.2-12.0); Platelet Count 153 K/mm3 (150-450); RBC Distribution Width CV 12.7 % (11.6-14.6); RBC Distribution Width SD 42.3 fl (35.1-43.9); White Blood Count 10.2 K/mm3 (4.4-11.0)
[2024-05-06 16:09] LABS: AST(SGOT) 19 U/L (15-37); Alanine Aminotransfer ALT/SGPT 16 U/L (13-56); Creatinine, Serum 0.36 mg/dL (0.55-1.02); EST Glomerular Filtration Rate 233 mL/min (>60); Est Glom Filt Rate - Afr Amer 282 mL/min (>60); Protein, Urine (Random) 17.4 mg/dL (<11.9); Protein:Creat Ratio 370 mg/g CRE (0-200); Uric Acid 3.9 mg/dL (2.6-6.0)
[2024-05-06] MEDS: NIFEdipine 30 MG Tablet PO ×2 (16:48→21:06)
[2024-05-06] MEDS: NIFEdipine 10 MG Capsule PO (17:05)
[2024-05-06] MEDS: Lactated Ringers 1,000 ML 50 ML IV (17:30)
[2024-05-06] MEDS: Magnesium Sulfate 4gm/100mL 4 GM/100 ML IV.SOLN. IV (17:41)
[2024-05-06 18:09] LABS: Absolute Lymphocyte Count 1.79 X10^3/uL (0.83-4.51); Absolute Neutrophil Count 9.3 X10^3/uL (2.0-7.7); Basophil# 0.03 X10^3/uL; Basophil% 0.2 % (0-1); Eosinophil# 0.11 X10^3/uL; Eosinophils% 0.9 % (0-5); Hematocrit 34.2 % (37-47); Hemoglobin 11.4 g/dL (12.0-15.0); Lymphocyte # 1.79 X10^3/ul (0.83-4.51); Lymphocyte % 14.9 % (19-41); Mean Corp Hgb Conc 33.3 g/dL (32-36); Mean Corpuscular Hgb 30.4 pg (27.0-32.0); Mean Corpuscular Volume 91.2 fL (81-99); Mean Platelet Vol. 12.2 fl (6.2-12.0); Monocyte# 0.72 X10^3/uL; NRBC Flagged by Analyzer 0 % (0-5); Neutrophil # 9.31 X10^3/uL (2.7-7.7); Neutrophil % 77.3 % (47-70); Platelet Count 177 K/mm3 (150-450); RBC Distribution Width CV 12.8 % (11.6-14.6); RBC Distribution Width SD 42.1 fl (35.1-43.9); Red Blood Count 3.75 M/mm3 (4.2-5.4); White Blood Count 12.1 K/mm3 (4.4-11.0)
[2024-05-06] MEDS: Magnesium Sulfate 20 GM/500 ML BAG IV (18:09)
--- NOTE | 2024-05-06 18:10 | PCM.HP.OB ---
HPI - General General Date of Admission: 05/06/24 Date of Service: 05/06/24 Chief Complaint: elevated bloodpressure HPI Narrative [place], is a 23 F who presents 1 para 0 with a EDC of 05/27/2024 presents complaining of elevated blood pressure in . She denies any vaginal bleeding or leaking of fluid. She has had good movement. She denies any persistent headache. She denies any epigastric pain. Her blood pressure was found to be significantly elevated in the office today and she had significant edema and she was sent to labor and delivery for evaluation. complicated to date by anemia in the third trimester, estimated weight 97th percentile, ADHD, bipolar, history of drug abuse, elevated 1 hour GTT normal 3-hour GTT. Tobacco use during , exercise induced asthma, history of oral but not genital herpes simplex, history of trichomonas, history of PTSD, Rh- and history of GERD Maternal Data Information Final SUSAN: 05/27/24 Gestational age: 37 0/7 PFSH PFSH Medical History History of pneumonia History of substance abuse Asthma Home Medications ?Medication ?Instructions ?Recorded ?Last Taken ?Type vit no.95-ferrous 1 tab PO DAILY 03/23/24 Unknown History fumarate 28 mg-folic acid 800 mcg tablet () aspirin 81 mg tablet,delayed 81 mg PO DAILY 05/03/24 Unknown History release azithromycin 250 mg tablet 250 mg PO .COMPLEX #12 tabs 05/03/24 Unknown Rx pantoprazole 20 mg tablet,delayed 20 mg PO QDAY 05/03/24 Unknown History release ferrous sulfate 325 mg (65 mg 325 mg PO QODAY 05/06/24 Unknown History iron) tablet (iron) Allergy/AdvReac Type Severity Reaction Status Date / Time amoxicillin (Amoxicillin) Allergy NOT SURE, Verified 05/06/24 15:48 WAS A BABY lavender (Lavandula Allergy Rash Verified 05/06/24 15:48 angustifolia) Family History Mother Depression Substance abuse Brother Depression Grandfather Substance abuse Social History Smoking Status: Current every day smoker tobacco type: cigarettes Tobacco: How many years used: 4 alcohol intake: former year quit: 2016 substance use type: former substance user 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 use: 04/09/18 and methamphetamine what type of physical activity do you participate in: yoga, aerobics and weight training frequency: 1-2 times per week ROS Constitutional Constitutional: Denies fatigue, fever(s) or malaise Eyes Eyes: Denies change in vision ENT HEENT: Denies dizziness or headache(s) Cardiovascular Cardiovascular: Denies chest pain, dyspnea or lightheadedness Respiratory/Chest Respiratory/Chest: Denies cough or dyspnea Gastrointestinal Gastrointestinal: Denies change in bowel habits Genitourinary Genitourinary: Denies burning urination or genital lesions Integumentary Integumentary: Denies rash Neurologic Neurologic: Denies confusion, dizziness, headache(s), numbness or weakness Vital Signs Vital Signs Vital Signs: 05/06/24 15:41 05/06/24 15:41 05/06/24 15:41 Temperature 98.5 F Temperature Source Temporal Pulse Rate Respiratory Rate 16 Blood Pressure BP Systolic BP Diastolic Pulse Ox 05/06/24 15:43 05/06/24 15:43 05/06/24 15:49 Temperature Temperature Source Pulse Rate 83 Respiratory Rate Blood Pressure 148/97 H BP Systolic 148 BP Diastolic 97 Pulse Ox 98 05/06/24 15:49 05/06/24 16:05 05/06/24 16:05 Temperature Temperature Source Pulse Rate 88 85 Respiratory Rate Blood Pressure 152/94 H BP Systolic 152 BP Diastolic 94 Pulse Ox 05/06/24 16:19 05/06/24 16:19 05/06/24 16:34 Temperature Temperature Source Pulse Rate 83 Respiratory Rate Blood Pressure 149/94 H 164/103 H BP Systolic 149 164 BP Diastolic 94 103 Pulse Ox 05/06/24 16:34 05/06/24 16:49 05/06/24 16:49 Temperature Temperature Source Pulse Rate 88 83 Respiratory Rate Blood Pressure 163/99 H BP Systolic 163 BP Diastolic 99 Pulse Ox 05/06/24 17:05 05/06/24 17:05 05/06/24 17:31 Temperature Temperature Source Pulse Rate 88 Respiratory Rate Blood Pressure 147/99 H 145/97 H BP Systolic 147 145 BP Diastolic 99 97 Pulse Ox 05/06/24 17:31 05/06/24 17:44 05/06/24 17:44 Temperature Temperature Source Pulse Rate 81 86 Respiratory Rate Blood Pressure 163/88 H BP Systolic 163 BP Diastolic 88 Pulse Ox 05/06/24 17:53 05/06/24 17:53 05/06/24 18:03 Temperature Temperature Source Pulse Rate 110 H Respiratory Rate Blood Pressure 155/90 H 164/99 H BP Systolic 155 164 BP Diastolic 90 99 Pulse Ox 05/06/24 18:03 Temperature Temperature Source Pulse Rate 96 Respiratory Rate Blood Pressure BP Systolic BP Diastolic Pulse Ox Weight Weight: 91.626 kg Body Mass Index (BMI) 32.5 Physical Exam Const alert and no apparent distress General Appearance: cooperative HEENT normocephalic Resp normal respiratory effort Cardio regular rate GI soft to palpation GI Narrative: gravid, nontender, appropriate for gestational age Extremity no calf tenderness General Extremity: edema Skin no wounds Rashes: No rashes noted Psych activity/motor behavior normal Labs Labs Labs: Hct 34.2 % (37-47) L Hgb 11.4 g/dL (12.0-15.0) L Syphilis Total Ab Pending Hep Bs Antigen Negative (Negative) Hepatitis C Ab (EIA) <0.1 s/co ratio (0.0-0.9) Assessment & Plan (1) 37 weeks gestation of : PLAN: Risk benefits and alternatives to induction of labor have been discussed with patient, her questions were answered to her satisfaction she desires to proceed. Estimated weight is approximately 4500 g clinically and by ultrasound. Pelvis is clinically adequate to expect vaginal delivery. Will initiate magnesium prophylaxis. Hypertensive protocol initiated. Recommend Hinojosa and Pitocin with artificial rupture membranes for induction. May have routine pain control measures as indicated. Patient's questions were answered to her satisfaction she agrees with plan. Hinojosa catheter placed over stylette in usual sterile fashion and the balloon inflated to 30 cc over the cervix. Placement over internal cervical os confirmed. Fetus and patient tolerated the procedure well. (2) Severe preeclampsia: (3) Encounter for induction of labor: (4) Nulliparity:
[2024-05-06] MEDS: Labetalol (Prefilled) 20 MG/4 ML IV ×2 (18:15→21:02)
[2024-05-06] MEDS: 0.9% Normal Saline Single 100 ML IV.SOLN. INTRA-UTER (18:17)
[2024-05-06 18:51] LABS: Syphilis Antibodies Non-reactive
[2024-05-06] MEDS: Oxytocin 15 Units/NS 250ml 15 UNITS/250 ML IV.SOLN 2 UNITS IV (20:23)
[2024-05-06 20:40] LABS: Amphetamine Urine VISTA NEGATIVE (<1000 ng/mL); Barbiturate Urine VISTA NEGATIVE (< 200 ng/mL); Benzodiazepine Urine VISTA NEGATIVE (< 200 ng/mL); Cocaine Urine VISTA NEGATIVE (< 300 ng/mL); Ecstacy Urine VISTA NEGATIVE (< 500 ng/mL); Methadone Urine VISTA NEGATIVE (< 300 ng/mL); PCP Urine VISTA NEGATIVE (< 25 ng/mL); THC Urine VISTA NEGATIVE (< 50 ng/mL); Vista UDS pH Range 7
[2024-05-06] MEDS: Acetaminophen 500 MG Tablet PO (23:26)
[2024-05-07] VITALS (313 sets, daily range): BP systolic 118–180; BP diastolic 61–102; PULSE 74–130; RESP 14–24; TEMP 36.2–38; O2SAT 86–100
[2024-05-07] MEDS: LACTATED RINGERS 500 ML 999 ML IV (02:54)
[2024-05-07] MEDS: fentaNYL-bupivacaine (epidural) 100 ML BAG EPIDURAL ×2 (03:58→08:15)
[2024-05-07] MEDS: Magnesium Sulfate 20 GM/500 ML BAG IV ×3 (04:09→23:25)
[2024-05-07] MEDS: Acetaminophen 500 MG Tablet PO ×2 (07:46→15:27)
--- NOTE | 2024-05-07 07:49 | PCM.PN.BLA ---
Progress Note Comfortable w/ epidural. Denies RIDLEY or visual changes. Cervix 4.5/90/0, tight, mildly edemetous. Contractions adequate. D/w her trial benadryl for cervical swelling, patient receptive. Recheck cervix around noon unless other indication before then> Cont. magnesium prophylaxis and antihypertensives
[2024-05-07] MEDS: DiphenhydrAMINE 50 MG/ML Syringe 25 MG IV (08:16)
[2024-05-07] MEDS: Azithromycin 250 MG Tablet PO (10:33)
[2024-05-07] MEDS: NIFEdipine 30 MG Tablet PO (10:33)
[2024-05-07] MEDS: Ondansetron 4 MG/2 ML Vial IV (12:30)
[2024-05-07] MEDS: Oxytocin 15 Units/NS 250ml 15 UNITS/250 ML IV.SOLN 999 UNITS IV (16:30)
[2024-05-07] MEDS: Methylergonovine 0.2 MG/ML Ampul IM (16:39)
[2024-05-07] MEDS: miSOPROStol 200 MCG Tablet 1000 MCG RC (16:40)
[2024-05-07] MEDS: Carboprost Tromethamine 250 MCG/ML Ampul IM (16:42)
[2024-05-07] MEDS: Lidocaine 1% (20 ml mdv) 20 ML Vial INFILT (16:56)
[2024-05-07] MEDS: TRANEXAMIC ACID 1,000 MG in 0.9% Normal Saline (100mL Bag) 100 ML 440 MG IV (16:57)
[2024-05-07] MEDS: Oxytocin 15 Units/NS 250ml 15 UNITS/250 ML IV.SOLN 334 UNITS IV (17:00)
[2024-05-07 17:07] LABS: Absolute Lymphocyte Count 0.81 X10^3/uL (0.83-4.51); Absolute Neutrophil Count 24.7 X10^3/uL (2.0-7.7); Basophil# 0.06 X10^3/uL; Basophil% 0.2 % (0-1); Hematocrit 34.3 % (37-47); Hemoglobin 11.4 g/dL (12.0-15.0); Lymphocyte # 0.81 X10^3/ul (0.83-4.51); Mean Corp Hgb Conc 33.2 g/dL (32-36); Mean Corpuscular Hgb 30.6 pg (27.0-32.0); Mean Platelet Vol. 11.8 fl (6.2-12.0); Monocyte# 1.22 X10^3/uL; Monocyte% 4.5 % (0-10); NRBC Flagged by Analyzer 0 % (0-5); Neutrophil % 91.3 % (47-70); POSITIVE DIFFERENTIAL YES; Platelet Count 227 K/mm3 (150-450); RBC Distribution Width SD 43.6 fl (35.1-43.9); Red Blood Count 3.73 M/mm3 (4.2-5.4); White Blood Count 27.1 K/mm3 (4.4-11.0)
[2024-05-07 17:10] LABS: Differential Indicated SCAN CRITERIA MET
[2024-05-07 17:21] LABS: Differential Comment SCANNED
[2024-05-07] MEDS: Labetalol (Prefilled) 20 MG/4 ML IV (17:24)
[2024-05-07] MEDS: 0.9% Saline Lock 10 ML Syringe IV ×3 (17:27→21:06)
--- NOTE | 2024-05-07 17:28 | OP.PCM_ITS ---
Assessment & Plan (1) Severe preeclampsia: (2) 37 weeks gestation of : (3) Vacuum extraction, delivered, current hospitalization: (4) Maternal exhaustion complicating labor and delivery: (5) Second degree laceration of perineum, delivered, current hospitalization: (6) hemorrhage: (7) atony of uterus with hemorrhage: Maternal Data Information Final SUSAN: 05/27/24 Gestational age: 37 1/7 Vaginal Delivery Maternal Presentation Maternal Presentation: Medically Indicated Induction Type of Induction: Pitocin, Hinojosa Bulb and Amniotomy Medical Reason for Induction: Preeclampsia, eclampsia Operative Information Date of Procedure: 05/07/24 Pre-Operative Diagnosis: maternal exhaustion, 37 weeks, severe preeclampsia Post-Operative Diagnosis: same Surgery / Procedure Performed: Vacuum Assisted Vaginal Delivery (outlet) Type of Anesthesia: Epidural Special Medications: tranexemic acid, misoprostol, hemabate, methergine, ancef Drain: Hinojosa to straight drain and - (Intrauterine balloon) Time of Delivery: 16:32 Findings Description of Procedure: I was called to evaluate patient after 1 hour of pushing. Position was ROT. I held restituted the baby to STEPHANI. Patient was getting frustrated. Station was plus 2 out of 5. Moderate caput. I discussed with the patient options. She was asking for a after our discussion about the risks and benefits of this and I encouraged her to continue pushing and she agreed. She pushed for approximately another hour with great effort and progressed to plus 4 out of 5 station was labia approximately 3 cm with caput. The skull was on the pelvic floor. Pelvis clinically adequate. Hinojosa catheter was in place. Epidural was adequate and anesthesia actually gave her a bolus as we prepared for the vacuum. Risk benefits and alternatives were discussed with the patient and her support team and they desire to proceed. She was becoming very uncomfortable and frustrated. She was very tired so the indication was maternal exhaustion. Delivery team was assembled including the assembler golf wood head. The vacuum was placed on the flexion point. Vacuum created 550 mmHg. I pulled with 2 contractions no pop offs and the vacuum was removed as the was crowni ng. She then delivered the rest of the head with maternal pushing efforts only. A vigorous male was delivered FILPIPO over a second-degree perineal laceration. The remainder the was delivered with maternal pushing and gentle traction only in less than 15 seconds. The Pitocin infusion was initiated for active management of the third stage. The cord was clamped and cut in approximately 30 seconds as the was stimulated.. The infant was attended to by the waiting nursing staff. The placenta was delivered spontaneously and intact. The cervix and vagina were intact. With first fundal massage a large amount of blood came from the cervix. I reached up and explored the uterus and it was very boggy and enlarged. I removed a large amount of blood and gave vigorous fundal massage. An IV Pitocin bolus was initiated. As soon as I stop massaging the uterus immediately filled up with blood and was actively bleeding. I quickly gave her 1000 mcg of Cytotec rectally. Patient was then given Hemabate as I continued fundal massage. However the uterus continued to be very boggy. At that point a brief ultrasound was performed which confirmed there were no retained products of conception. There is still active bleeding from the cervix and patient was therefore then given Methergine and tranexamic acid was ordered. A second IV was started and CBC and coags were collected. I continued fundal massage as the intrauterine tamponade balloon was readied. I then placed the tamponade balloon in the lower uterine segment and the balloon was inflated with approximately 250 cc of normal saline until it was firm against the lower uterine segment. Active bleeding from around the balloon was not noted. The cervix and upper vagina were again confirmed to be intact. There was now just a small amount of bleeding from the drainage tube from the balloon. 25 cc of 1% lidocaine solution were used to anesthetize the perineal area as patient can still feel the needle when I started to repair the laceration. The second-degree perineal laceration was repaired with 3-0 Vicryl suture in a running standard fashion. The laceration was hemostatic. Sponge and needle counts were correct. A vaginal sweep was completed by me. Patient will be given IV antibiotics for prophylaxis due to uterine exploration and uterine tamponade balloon in place. Monitor closely if patient has any further bleeding will likely need to be typed and crossmatched. Presentation: FILIPPO Amniotic Membrane Rupture Type: Artificial Amniotic Fluid Description: Clear Placental Delivery Description: Spontaneous Placenta Disposition: [facility] Cord Vessel Description: 3 Vessels Cord Entanglement: None Cord Gases: ABG and VBG A Gender: Male (Harden) (1 minute): 8 (5 minute): 8 Delayed Cord Clamping: No Post Vaginal Delivery Medications Given After Delivery: IV Pitocin Episiotomy Description: None Laceration: 2nd degree Complication Complications: None
[2024-05-07 17:29] LABS: Prothrombin Time (Protime)PT. 13.5 SECONDS (11.7-14.9)
[2024-05-07 17:30] LABS: Fibrinogen 616 mg/dl (203-444); Partial Thromboplast Time 25.9 Seconds (24.1-36.2)
[2024-05-07] MEDS: Oxytocin 15 Units/NS 250ml 15 UNITS/250 ML IV.SOLN 83 UNITS IV (18:30)
[2024-05-07] MEDS: Ketorolac 30 MG/ML Syringe IV (18:31)
[2024-05-07] MEDS: Cefazolin 1 GM/50 ML BAG IV (18:50)
[2024-05-07] MEDS: Labetalol 100 MG Tablet PO (18:59)
[2024-05-07] MEDS: Acetaminophen 500 MG Tablet 1000 MG PO (22:19)
[2024-05-08] VITALS (123 sets, daily range): BP systolic 118–146; BP diastolic 54–86; PULSE 80–115; RESP 16–24; TEMP 36.6–37.8; O2SAT 90–100
[2024-05-08] MEDS: Ketorolac 10 MG Tablet PO ×2 (01:39→16:05)
[2024-05-08] MEDS: Cefazolin 1 GM/50 ML BAG IV ×4 (02:33→20:36)
[2024-05-08] MEDS: Rho(D) Immune Globulin 300 MCG (1500 Unit) Syringe IV (05:50)
[2024-05-08] MEDS: 0.9% Saline Lock 10 ML Syringe IV ×3 (05:51→16:56)
[2024-05-08] MEDS: Labetalol 100 MG Tablet PO ×2 (06:12→18:59)
[2024-05-08 06:32] LABS: Absolute Lymphocyte Count 1.76 X10^3/uL (0.83-4.51); Absolute Neutrophil Count 15.6 X10^3/uL (2.0-7.7); Basophil# 0.04 X10^3/uL; Basophil% 0.2 % (0-1); Eosinophil# 0.04 X10^3/uL; Eosinophils% 0.2 % (0-5); Hematocrit 26.6 % (37-47); Hemoglobin 8.8 g/dL (12.0-15.0); Lymphocyte # 1.76 X10^3/ul (0.83-4.51); Lymphocyte % 9.2 % (19-41); Mean Corp Hgb Conc 33.1 g/dL (32-36); Mean Corpuscular Volume 93.7 fL (81-99); Monocyte# 1.47 X10^3/uL; Monocyte% 7.7 % (0-10); NRBC Flagged by Analyzer 0 % (0-5); Neutrophil # 15.64 X10^3/uL (2.7-7.7); Neutrophil % 81.9 % (47-70); POSITIVE COUNT YES; Platelet Count 152 K/mm3 (150-450); RBC Distribution Width CV 13.2 % (11.6-14.6); RBC Distribution Width SD 44.8 fl (35.1-43.9); Red Blood Count 2.84 M/mm3 (4.2-5.4); White Blood Count 19.1 K/mm3 (4.4-11.0)
[2024-05-08 06:41] LABS: Differential Indicated SCAN CRITERIA MET
[2024-05-08] MEDS: Dibucaine 30 GM Tube 1 APPLIC TOPICAL (08:22)
[2024-05-08] MEDS: Magnesium Sulfate 20 GM/500 ML BAG IV (09:33)
[2024-05-08] MEDS: Azithromycin 250 MG Tablet PO (09:37)
[2024-05-08] MEDS: NIFEdipine 30 MG Tablet PO (09:37)
--- NOTE | 2024-05-08 09:58 | NURSING ---
Heart murmur noted at 0945 [place] check.
[2024-05-08] MEDS: Acetaminophen 500 MG Tablet 1000 MG PO (10:51)
--- NOTE | 2024-05-08 12:01 | NURSING ---
Murmur noted with this check.
--- NOTE | 2024-05-08 12:22 | NURSING ---
Dr. Beebe in to take 150 ml of 250ml out of [facility] emergency room.
--- NOTE | 2024-05-08 13:26 | PCM.PN.OB ---
Subjective Subjective Pain well controlled, average lochia. Denies CP/SOB. Mild RIDLEY. No lightheadedness. Objective Data Objective Data Vital Signs: Vital Signs Temp Pulse Resp BP Pulse Ox O2 Del Method 100.0 F H 94 16 130/68 H 98 Room Air 05/08/24 12:50 05/08/24 12:51 05/08/24 12:50 05/08/24 12:51 05/08/24 12:50 05/08/24 12:50 Oxygen Delivery Method Room Air Weight: 91.626 kg Body Mass Index (BMI) 32.5 Intake & Output: Intake and Output for Last 24 Hours 05/06/24 05/07/24 05/08/24 23:59 23:59 23:59 Intake Total 319.03 / 379.03 4390.64 / 4390.64 985 / 985 Output Total 675 / 975 5639 / 5639 1305 / 1305 Balance -355.97 / -595.97 -1248.36 / -1248.36 -320 / -320 Lab / Micro Data 05/08/24 06:17 05/06/24 15:35 Labs: Laboratory Results - last 24 hr 05/07/24 16:55: WBC 27.1 H 05/07/24 16:55: WBC Cancelled, Corrected WBC Cancelled, RBC 3.73 L 05/07/24 16:55: RBC Cancelled, Hgb 11.4 L 05/07/24 16:55: Hgb Cancelled, Hct 34.3 L 05/07/24 16:55: Hct Cancelled, MCV 92.0 05/07/24 16:55: MCV Cancelled, MCH 30.6 05/07/24 16:55: MCH Cancelled, MCHC 33.2 05/07/24 16:55: MCHC Cancelled, RDW Std Deviation 43.6 05/07/24 16:55: RDW Std Deviation Cancelled, RDW Coeff of Jus 13.0 05/07/24 16:55: RDW Coeff of Jus Cancelled, Plt Count 227 05/07/24 16:55: Plt Count Cancelled, MPV 11.8 05/07/24 16:55: MPV Cancelled, Immature Gran % (Auto) 1.000 H 05/07/24 16:55: Immature Gran % (Auto) Cancelled, Neut % (Auto) 91.3 H 05/07/24 16:55: Neut % (Auto) Cancelled, Lymph % (Auto) 3.0 L 05/07/24 16:55: Lymph % (Auto) Cancelled, [place] % (Auto) 4.5 05/07/24 16:55: [place] % (Auto) Cancelled, Eos % (Auto) 0.0 05/07/24 16:55: Eos % (Auto) Cancelled, Baso % (Auto) 0.2 05/07/24 16:55: Baso % (Auto) Cancelled, Absolute Neuts (auto) 24.7 H 05/07/24 16:55: Absolute Neuts (auto) Cancelled, Absolute Lymphs (auto) 0.81 L 05/07/24 16:55: Absolute Lymphs (auto) Cancelled, Total Counted Cancelled, Neutrophils % (Manual) Cancelled, Band Neutrophils % Cancelled, Lymphocytes % (Manual) Cancelled, Monocytes % (Manual) Cancelled, Eosinophils % (Manual) Cancelled, Basophils % (Manual) Cancelled, Metamyelocytes % Cancelled, Myelocytes % Cancelled, Promyelocytes % Cancelled, Blast Cells % Cancelled, Plasma Cell % (Manual) Cancelled, Other Cells % Cancelled, Nucleated RBC % 0 05/07/24 16:55: Nucleated RBC % Cancelled, Nucleated RBCs/100 WBC Cancelled, Differential Comment SCANNED 05/07/24 16:55: Differential Comment Cancelled, Diff Path Review Cancelled, Hypersegmented Neuts Cancelled, Atypical Lymphocytes Cancelled, Reactive Lymphocytes Cancelled, Smudge Cells Cancelled, Toxic Granulation Cancelled, Toxic Vacuolation Cancelled, Dohle Bodies Cancelled, Enoch Rods Cancelled, Platelet Estimate Cancelled, Plt Morphology Comment Cancelled, RBC Morphology Cancelled 05/07/24 16:55: RBC Morphology Cancelled, Polychromasia Cancelled, Hypochromasia Cancelled, Basophilic Stippling Cancelled, Anisocytosis Cancelled, Microcytosis Cancelled, Macrocytosis Cancelled, Spherocytes Cancelled, Sickle Cells Cancelled, Target Cells Cancelled, Tear Drop Cells Cancelled, Ovalocytes Cancelled, Stomatocytes Cancelled, [place] Bodies Cancelled, Momence Cells Cancelled, Bite Cells Cancelled, Crenated Cell Cancelled, Acanthocytes (Spur) Cancelled, Rouleaux Cancelled, Schistocytes Cancelled, PT 13.5, INR 1.0, APTT 25.9, Fibrinogen 616 H 05/07/24 21:05: Screen NEGATIVE, Baby's Blood Type A POSITIVE, Baby's ARMANDO NEGATIVE 05/08/24 06:17: WBC 19.1 H, RBC 2.84 L, Hgb 8.8 L, Hct 26.6 L, MCV 93.7, MCH 31.0, MCHC 33.1, RDW Std Deviation 44.8 H, RDW Coeff of Jus 13.2, Plt Count 152, MPV 11.0, Immature Gran % (Auto) 0.800, Neut % (Auto) 81.9 H, Lymph % (Auto) 9.2 L, [place] % (Auto) 7.7, Eos % (Auto) 0.2, Baso % (Auto) 0.2, Absolute Neuts (auto) 15.6 H, Absolute Lymphs (auto) 1.76, Nucleated RBC % 0 Physical Exam Narrative Ext 2+ edema, no clonus, 1+ DTRs Minimal drainage from uterine tamponade balloon, I removed 150 cc from balloon without complication or difficulty. Const alert and no apparent distress Narrative: Fundus firm, below umbilicus. Assessment & Plan (1) atony of uterus with hemorrhage: PLAN: Uterine tamponade balloon deflated by 50%. No increase in bleeding at this time. Will continue to monitor. Will DC the remaining fluid out of the balloon in a few hours and DC the antibiotic prophylaxis when we DC the balloon. (2) Second degree laceration of perineum, delivered, current hospitalization: (3) Vacuum extraction, delivered, current hospitalization: (4) Severe preeclampsia: PLAN: Blood pressure stable. On p.o. labetalol and Procardia. Continue with these. Stop magnesium 24 hours after delivery. (5) Acute blood loss anemia: PLAN: From atony at delivery. Blood count dropped as expected and appropriate for estimated blood loss. Will recheck tomorrow. Patient is tolerating the anemia well. If drops further or becomes symptomatic would consider transfusion but hemodynamically stable at this time and asymptomatic. Recheck CBC in AM. Will DC home with iron supplementation as well. PLAN: Plan Patient would like Nexplanon for contraception. Will try to place this later today or tomorrow.
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
--- NOTE | 2024-05-08 16:00 | NURSING ---
Heart murmur still detected and Dr. Beebe notified. SPO2 WNL, not SOB and lungs are clear.
--- NOTE | 2024-05-08 16:59 | NURSING ---
This RN d/c'd rest of tampanade balloon. 100 ml discarded. Tampanade pulled out without resistance. Pt tolerated well. No additional bleeding noted. Firm at u -2.
--- NOTE | 2024-05-08 21:11 | CASEMGMT ---
Social Work: trailhead construction worker made referral to [facility] with [place] due to mother using drugs while who stated they will likely screen it out. Karina Abreu, BIODIESEL ENGINE SPECIALIST, [employer]
[2024-05-09] VITALS (10 sets, daily range): BP systolic 119–137; BP diastolic 56–67; PULSE 75–100; RESP 16–18; TEMP 36.6–37.1; O2SAT 97–98
[2024-05-09] MEDS: Cefazolin 1 GM/50 ML BAG IV (02:19)
[2024-05-09] MEDS: 0.9% Saline Lock 10 ML Syringe IV (02:21)
[2024-05-09] MEDS: Acetaminophen 500 MG Tablet 1000 MG PO ×2 (04:18→17:49)
[2024-05-09 06:23] LABS: Absolute Lymphocyte Count 2.16 X10^3/uL (0.83-4.51); Absolute Neutrophil Count 7.7 X10^3/uL (2.0-7.7); Basophil# 0.02 X10^3/uL; Basophil% 0.2 % (0-1); Eosinophil# 0.14 X10^3/uL; Eosinophils% 1.3 % (0-5); Hematocrit 22.4 % (37-47); Hemoglobin 7.4 g/dL (12.0-15.0); Lymphocyte # 2.16 X10^3/ul (0.83-4.51); Lymphocyte % 20.1 % (19-41); Mean Corpuscular Hgb 31.2 pg (27.0-32.0); Mean Corpuscular Volume 94.5 fL (81-99); Mean Platelet Vol. 11.2 fl (6.2-12.0); Monocyte# 0.66 X10^3/uL; Monocyte% 6.2 % (0-10); NRBC Flagged by Analyzer 0 % (0-5); Neutrophil # 7.66 X10^3/uL (2.7-7.7); Neutrophil % 71.5 % (47-70); Platelet Count 159 K/mm3 (150-450); RBC Distribution Width CV 13.5 % (11.6-14.6); RBC Distribution Width SD 46.7 fl (35.1-43.9); Red Blood Count 2.37 M/mm3 (4.2-5.4); White Blood Count 10.7 K/mm3 (4.4-11.0)
[2024-05-09] MEDS: Lidocaine 1% (20 ml mdv) 20 ML Vial INFILT (06:31)
--- NOTE | 2024-05-09 06:31 | PCM.PN.OB ---
Subjective Subjective pain well controlled, average lochia. No BM yet, passing flatus. Denies CP/SOB or lightheadedness Objective Data Objective Data Vital Signs: Vital Signs Temp Pulse Resp BP Pulse Ox O2 Del Method 97.8 F 90 16 119/56 L 98 Room Air 05/09/24 04:11 05/09/24 04:11 05/09/24 04:11 05/09/24 04:11 05/09/24 04:11 05/09/24 04:11 Oxygen Delivery Method Room Air Weight: 91.626 kg Body Mass Index (BMI) 32.5 Intake & Output: Intake and Output for Last 24 Hours 05/07/24 05/08/24 05/09/24 23:59 23:59 23:59 Intake Total 4390.64 / 4390.64 1790 / 1790 50 / 50 Output Total 5639 / 5639 3105 / 3105 Balance -1248.36 / -1248.36 -1315 / -1315 50 / 50 Lab / Micro Data 05/09/24 06:10 05/06/24 15:35 Labs: Laboratory Results - last 24 hr 05/08/24 06:17: WBC 19.1 H, RBC 2.84 L, Hgb 8.8 L, Hct 26.6 L, MCV 93.7, MCH 31.0, MCHC 33.1, RDW Std Deviation 44.8 H, RDW Coeff of Jus 13.2, Plt Count 152, MPV 11.0, Immature Gran % (Auto) 0.800, Neut % (Auto) 81.9 H, Lymph % (Auto) 9.2 L, [place] % (Auto) 7.7, Eos % (Auto) 0.2, Baso % (Auto) 0.2, Absolute Neuts (auto) 15.6 H, Absolute Lymphs (auto) 1.76, Nucleated RBC % 0 05/09/24 06:10: WBC 10.7, RBC 2.37 L, Hgb 7.4 L, Hct 22.4 L, MCV 94.5, MCH 31.2, MCHC 33.0, RDW Std Deviation 46.7 H, RDW Coeff of Jus 13.5, Plt Count 159, MPV 11.2, Immature Gran % (Auto) 0.700, Neut % (Auto) 71.5 H, Lymph % (Auto) 20.1, [place] % (Auto) 6.2, Eos % (Auto) 1.3, Baso % (Auto) 0.2, Absolute Neuts (auto) 7.7, Absolute Lymphs (auto) 2.16, Nucleated RBC % 0 Physical Exam Narrative ext 2+ Edema, 2+ DTrs, no clonus Const alert and no apparent distress Narrative: Fundus firm, below umbilicus. Assessment & Plan (1) Acute blood loss anemia: (2) Vacuum extraction, delivered, current hospitalization: PLAN: PPD#2. DOing well overall. Tolerating anemia. CBC pending for this am (3) Nexplanon insertion: PLAN: Risk-benefit and alternatives to Nexplanon insertion are reviewed with the patient, consent was signed. Nexplanon was inserted in the left arm and the usual sterile fashion without difficulty. Is placed 7 cm proximal to the inferior medial epicondryl. The area was cleansed with chlorhexidine and 1% lidocaine was used to anesthetize the area. The device was inserted without difficulty and palpation confirmed placement under the skin. Patient tolerated the procedure well. (4) Severe preeclampsia: PLAN: BP stable on current meds. Likely home tomorrow.
[2024-05-09] MEDS: Etonogestrel 68 MG IMPLANT SC (06:32)
[2024-05-09] MEDS: Labetalol 100 MG Tablet PO ×2 (07:01→18:34)
[2024-05-09] MEDS: Iron Sucrose Complex 200 MG in 0.9% Normal Saline (100mL Bag) 100 ML 220 MG IV (08:00)
[2024-05-09] MEDS: Polyethylene Glycol 3350 17 GM PACKET PO (09:12)
[2024-05-09] MEDS: NIFEdipine 30 MG Tablet PO (10:02)
[2024-05-09] MEDS: Azithromycin 250 MG Tablet PO (10:02)
--- NOTE | 2024-05-09 12:56 | CASEMGMT ---
Labor and Delivery Social Work This social security specialist (Sw) met with mother of baby (MOBWendy Goss) at bedside. Sw introduced self and provided MOB with SDOH to complete. MOB indicates no issues, concerns or needs at this time. MOB reports that she has all basic needs and baby items for baby. MOB reports that she is anticipating being dishcarged today or tomorrow. Sw encouraged MOB to ask for sw if any needs or concerns present themselves, MOB expressed understanding. No other issues at this time. Sj Ho, VAN DRIVER HELPER, PSS DELIVERY PROFESSIONAL
--- NOTE | 2024-05-09 20:00 | NURSING ---
this RN gave report to gary ZHU. that RN to assume care of pt at this time.
[2024-05-10 01:16] VITALS: BP 113/76; PULSE 85; RESP 16; TEMP 36.9
[2024-05-10] MEDS: Acetaminophen 500 MG Tablet 1000 MG PO (05:10)
[2024-05-10 05:26] LABS: Hematocrit 23.6 % (37-47); Hemoglobin 7.8 g/dL (12.0-15.0); Mean Corp Hgb Conc 33.1 g/dL (32-36); Mean Corpuscular Hgb 31.2 pg (27.0-32.0); Mean Corpuscular Volume 94.4 fL (81-99); Mean Platelet Vol. 10.7 fl (6.2-12.0); Platelet Count 165 K/mm3 (150-450); RBC Distribution Width CV 13.1 % (11.6-14.6); RBC Distribution Width SD 45.3 fl (35.1-43.9); White Blood Count 10.4 K/mm3 (4.4-11.0)
[2024-05-10 05:58] VITALS: BP 112/59; PULSE 78
[2024-05-10 07:43] VITALS: BP 137/83; PULSE 87; O2SAT 97
--- NOTE | 2024-05-10 08:07 | DS.PCM_ITS ---
Providers Date of Admission: 05/06/24 Date of Discharge: 05/10/24 Primary Care Physician: Dr. Sofiya Bro MD Reason For Visit: VAGINAL DELIVERY Diagnosis Discharge Diagnosis (1) Acute blood loss anemia: Status: Acute Code(s): D62 - Acute posthemorrhagic anemia (2) Vacuum extraction, delivered, current hospitalization: Status: Acute Code(s): O75.9 - Complication of labor and delivery, unspecified Plan: PPD#2. DOing well overall. Tolerating anemia. CBC pending for this am (3) Nexplanon insertion: Status: Acute Code(s): Z30.017 - Encounter for initial prescription of implantable subdermal contraceptive Plan: Risk-benefit and alternatives to Nexplanon insertion are reviewed with the patient, consent was signed. Nexplanon was inserted in the left arm and the usual sterile fashion without difficulty. Is placed 7 cm proximal to the inferior medial epicondryl. The area was cleansed with chlorhexidine and 1% lidocaine was used to anesthetize the area. The device was inserted without difficulty and palpation confirmed placement under the skin. Patient tolerated the procedure well. (4) Severe preeclampsia: Status: Acute Code(s): O14.10 - Severe pre-eclampsia, unspecified trimester Plan: BP stable on current meds. Likely home tomorrow. Medications at Discharge Home Medications vit no.95-ferrous fumarate 28 mg-folic acid 800 mcg tablet () 1 tab PO DAILY 03/23/24 aspirin 81 mg tablet,delayed release 81 mg PO DAILY 05/03/24 azithromycin 250 mg tablet 250 mg PO .COMPLEX #12 tabs 05/03/24 pantoprazole 20 mg tablet,delayed release 20 mg PO QDAY 05/03/24 ferrous sulfate 325 mg (65 mg iron) tablet (iron) 325 mg PO QODAY 05/06/24 Hospital Course Operations None Procedures None Summary of Care Provided Minutes Spent on Discharge: 24 Hospital Course: 23-year-old Chaseolle parous female admitted at 37 weeks gestation on 05/06/24 for preeclampsia. She had the hypertensive protocol initiated and was on magnesium prophylaxis. She had a vacuum-assisted delivery on 05/07/2024. This was complicated by major hemorrhage due to atony. She had a second- degree laceration that was repaired. She had a uterine balloon inflated. It was deflated on day #1. She received antibiotic prophylaxis during that time. By day #2 she was ambulating urinating [place] regular diet she had significant blood loss anemia which she was tolerating well. She was given IV iron. On day #3 her blood pressures were stable and her antihypertensives had to be discontinued. She was discharged home on iron with routine instructions and follow-up. Will monitor blood pressures closely and have her follow-up in the office within 72 hours or as needed. Patient is comfortable with this plan. Physical Exam Narrative Patient denies any headache or visual changes. Average lochia. Denies shortness of breath or chest pain. Denies lightheadedness. Extremities 2+ edema, no clonus, 2+ DTR This note will act as her progress note and discharge summary for the day. Assessment plan day #3 status post vacuum-assisted vaginal delivery. Acute blood loss anemia. Tolerating well. Home on iron with vitamin. Preeclampsia with severe features, status post magnesium prophylaxis for 24 hours after delivery. Doing well not on antihypertensives. Will have her follow-up closely and monitor blood pressures at home. Not home on antihypertensives. Const alert and no apparent distress Narrative: Fundus firm, below umbilicus. Weight / BMI Weight Weight: 91.626 kg Body Mass Index (BMI) 32.5 ABG / Lab / Microbiology Data 05/10/24 05:15 05/06/24 15:35 Laboratory: Laboratory Results - last 24 hr 05/10/24 05:15: WBC 10.4, RBC 2.50 L, Hgb 7.8 L, Hct 23.6 L, MCV 94.4, MCH 31.2, MCHC 33.1, RDW Std Deviation 45.3 H, RDW Coeff of Jus 13.1, Plt Count 165, MPV 10.7 D/C Instructions Discharge Diet: No restrictions May resume sexual activity in: 6 weeks Call your doctor if your incision/area has: Continuous Slow Oozing, Sudden Increased Bleeding, Foul Smelling Discharge and Swelling at the incision site Call your doctor if you observe: Fever of 101 or Higher and Inability to urinate Please Follow Up With: Caity Beebe MD When: Follow up with our office in 1-2 and 6 weeks or as needed. [phone] Meaningful Use Info Meaningful Use Meaningful Use Diagnoses (Choose all that apply): None applicable Ischemic Stroke Statin Dosing Therapy Reference: STATIN DOSE THERAPY REFERENCE: * Patients > 75 years receive moderate or high dose statin therapy. * Patients 75 years or YOUNGER should receive HIGH intensity statin dose unless contraindicated. You will be required to document reason for non-treatment if statin daily dose does not meet guidelines. HIGH DOSE STATIN THERAPY DAILY Atorvastatin > than or = to 40 mg Rosuvastatin > than or = to 20 mg Amlodipine + Atorvastatin > than or = to 2.5/40 mg Ezetimibe + Simvastatin 10/80 mg Simvastatin 80mg Discharge Plan Admission Admit Date/Time: 05/06/24 16:19 Attending Provider: Caity Beebe Primary Care Provider: Sofiya Bro Discharge Orders/Prescriptions Prescriptions: No Action pantoprazole 20 mg tablet,delayed release (DR/EC) 20 mg PO QDAY aspirin 81 mg tablet,delayed release (DR/EC) 81 mg PO DAILY azithromycin 250 mg tablet 250 mg PO .COMPLEX Qty: 12 0RF Rx Instructions: 2 tablets (500 mg) on day 1, then 1 tablet daily on days 2 through 11 ferrous sulfate [iron] 325 mg (65 mg iron) tablet 325 mg PO QODAY PNV cmb#95-ferrous fumarate-FA [] 28 mg iron- 800 mcg tablet 1 tab PO DAILY Referrals / Follow Up: Sofiya Bro MD [Primary Care Provider] -
[2024-05-10 08:37] VITALS: BP 137/83; PULSE 99; RESP 16; TEMP 37.4; O2SAT 98
[2024-05-10] MEDS: NIFEdipine 30 MG Tablet PO (10:56)
[2024-05-10] MEDS: Azithromycin 250 MG Tablet PO (10:57)
[2024-05-10 10:58] VITALS: BP 137/87; PULSE 89
[2024-05-10] MEDS: Hydrocortisone 2.5% Crm 1 APPLIC TOPICAL (11:33)
--- NOTE | 2024-05-14 15:26 | NURSING ---
F/up questions asked at appt. Pt. doing well overall, has had some diarrhea since being home. IBCLC encouraged pt. to call OBGYN if it is persistent. Denies other s+s. improving, family returning Thursday for 's weight check.
== END 2024-05-10 12:15 | disposition home or self-care (01) | DRG 560 ==
LOC: WPOUT 16:24 → WP 16:24
PROVIDERS: Admitting Provider Obstetrics & Gynecology; PCP Internal Medicine; Referring Provider Obstetrics & Gynecology; Visit Provider Obstetrics & Gynecology
DX: O14.14 Severe pre-eclampsia complicating childbirth (principal); Z37.0 Single live birth; D62 Acute posthemorrhagic anemia; F17.210 Nicotine dependence, cigarettes, uncomplicated; F17.290 Nicotine dependence, other tobacco product, uncomplicated; J01.90 Acute sinusitis, unspecified; O99.52 Diseases of the respiratory system complicating childbirth; O75.81 Maternal exhaustion complicating labor and delivery; O99.02 Anemia complicating childbirth; O72.1 Other immediate postpartum hemorrhage; O70.1 Second degree perineal laceration during delivery; O99.334 Smoking (tobacco) complicating childbirth; Z59.86 Financial insecurity; Z63.4 Disappearance and death of family member; Z65.3 Problems related to other legal circumstances; Z65.8 Other specified problems related to psychosocial circumstances; Z3A.37 37 weeks gestation of pregnancy; Z79.82 Long term (current) use of aspirin
CPT/HCPCS: 59025; 59050; 80307; 82565; 82570; 84156; 84450; 84460; 84550; 85025; 85027; 85384; 85461; 85610; 85730; 86780; 86850; 86870; 86900; 86901; 90384; 99221; J1756; J7120; A4216; G0378; J2405; J2790; J2791; J3490

== ENCOUNTER 2025-04-15 17:29 | Emergency (ER) | payer MEDICAID, SELFPAY ==
[2025-04-15 17:29] VITALS: BP 135/87; PULSE 92; RESP 14; TEMP 36.2; O2SAT 98; BMI 32.4
[2025-04-15 18:16] VITALS: BP 111/72; PULSE 81; RESP 16; TEMP 36.2; O2SAT 98
== END 2025-04-15 18:26 | disposition home or self-care (01) ==
PROVIDERS: Emergency Provider Emergency Medicine; Visit Provider Emergency Medicine
DX: J02.8 Acute pharyngitis due to other specified organisms (principal); J45.909 Unspecified asthma, uncomplicated; Z79.899 Other long term (current) drug therapy; F17.290 Nicotine dependence, other tobacco product, uncomplicated
CPT/HCPCS: 87651; 99282

== ENCOUNTER 2025-08-18 11:06 | Emergency (ER) | payer MEDICAID, SELFPAY ==
[2025-08-18 11:07] VITALS: BP 138/93; PULSE 90; RESP 20; TEMP 36.2; O2SAT 100; BMI 30.7
[2025-08-18 12:11] VITALS: BP 136/90; PULSE 90; RESP 18; O2SAT 99
--- NOTE | 2025-08-18 12:20 | EDS_ITS ---
HPI History of Present Illness Chief Complaint: Nausea/Vomiting Informant: patient Narrative Narrative: 24-year-old female presenting to the emergency room with a chief complaint of vomiting. Patient states that she has had diarrhea for months. She woke this morning with vomiting. She notes lower abdominal pain that has not been new but an epigastric discomfort that is new since vomiting. She went to see primary care today who checked her urine and wrote her Zofran and then referred her to the emergency department. Patient states she feels sweaty and hot has not checked her fever. She notes that she has not been taking her levothyroxine. She vapes and utilizes cannabis recreationally. She denies any history of pancreatitis. No prior abdominal surgeries. [facility] Medical History Nexplanon insertion Acute blood loss anemia atony of uterus with hemorrhage Severe preeclampsia Trauma PTSD (post-traumatic stress disorder) Anxiety Depression Pre-eclampsia History of pneumonia History of substance abuse Asthma Home Medications ?Medication ?Instructions ?Recorded ?Last Taken ?Type vit no.95-ferrous 1 tab PO DAILY 03/23/24 Unk nown History fumarate 28 mg-folic acid 800 mcg tablet () azithromycin 250 mg tablet 250 mg PO .COMPLEX #12 tabs 05/03/24 Unknown Rx pantoprazole 20 mg tablet,delayed 20 mg PO QDAY Unknown History release ferrous sulfate 325 mg (65 mg 325 mg PO QODAY 05/06/24 Unknown History iron) tablet (iron) ferrous sulfate 325 mg (65 mg 325 mg PO QODAY 60 days #30 tabs 05/10/24 Unknown Rx iron) tablet (FeroSul) ibuprofen 600 mg tablet 600 mg PO Q6H PRN Pain 20 da ys #60 05/10/24 Unknown Rx TABLETS labetalol 200 mg tablet 200 mg PO BID 10 days #20 ta bs 05/10/24 Unknown Rx Allergy/AdvReac Type Severity Reaction Status Date / Time amoxicillin (Amoxicillin) Allergy NOT SURE, Verified 08/18/25 11:09 WAS A BABY lavender (Lavandula Allergy Rash Verified 08/18/25 11:09 angustifolia) Family History Mother Depression Substance abuse Brother Depression Grandfather Substance abuse Social History Smoking Status: Current every day smoker tobacco type: e-cigarettes Tobacco: How many years used: 4 alcohol intake: former year quit: 2016 substance use type: former substance user 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 use: 04/09/18 and methamphetamine what type of physical activity do you participate in: yoga, aerobics and weight training frequency: 1-2 times per week ROS ROS ED Constitutional Constitutional ED: Reports chills and sweats; Denies fever(s) or weight loss Eyes Eyes: Denies change in vision or diplopia ENT ENT ED: Denies ear pain, rhinorrhea or sore throat Cardiovascular Cardiovascular: Denies chest pain, orthopnea, palpitations or racing heartbeat Respiratory/Chest Respiratory/Chest: Denies cough, dyspnea or orthopnea Gastrointestinal Gastrointestinal: Reports abdominal pain, diarrhea, nausea and vomiting Genitourinary Genitourinary ED: Denies dysuria, hematuria or urinary frequency Musculoskeletal Musculoskeletal: Denies arthralgias, back pain, myalgias or neck pain Integumentary Denies abscess or rash Neurologic Neurologic: Denies headache(s) or weakness Psychiatric Psychiatric: Denies anxiety, depression, suicidal ideation or suicidal thoughts Endocrine Endocrinology: Denies polydipsia, polyphagia or polyuria Allergic/Immunologic Allergic/Immunologic ED: Denies mouth swelling, tongue swelling or urticaria EXAM Physical Exam Const Vital Signs: 08/18/25 11:07 08/18/25 12:11 08/18/25 12:59 Temperature 97.2 F L Temperature Source Temporal Pulse Rate 90 90 88 Respiratory Rate 20 H 18 14 Blood Pressure 138/93 H 136/90 H 124/86 H Blood Pressure Mean 108 105 98 Pulse Ox 100 99 100 Oxygen Delivery Method Room Air 08/18/25 13:57 08/18/25 14:59 Temperature 98.6 F Temperature Source Pulse Rate 80 80 Respiratory Rate 16 Blood Pressure 124/86 H 124/86 H Blood Pressure Mean 98 98 Pulse Ox 99 Oxygen Delivery Method Positive well nourished and well developed General Appearance ED: well developed and NAD HEENT Reports normocephalic, head/scalp atraumatic and moist mucous membranes Eyes PERRL and EOMs intact bilaterally Neck no lymphadenopathy, supple and no JVD Resp normal respiratory effort and clear to auscultation bilaterally Cardio regular rate, regular rhythm and no murmurs GI Negative for hepatosplenomegaly or no masses Inspection: Negative for abdominal distention Auscultation: normoactive bowel sounds Palpation: soft and tender epigastric; Negative for guarding or rebound tenderness present Back/Spine no CVA tenderness and normal ROM Extremity normal to inspection General Extremety ED: Negative for edema General Extremity: Negative for edema Neuro oriented x3 and CN's II-XII intact bilaterally Sensorium / Orientation: alert Motor Exam: strength 5/5 throughout Psych mental status grossly normal Mood & Affect: Negative for depressed or tearful Skin no rashes or lesions noted and no wounds Skin Narrative: Mildly diaphoretic MDM MDM MDM Narrative Medical decision making narrative: Differential diagnosis includes but not limited to cyclic vomiting syndrome pancreatitis cholecystitis choledocholithiasis gastritis gastroenteritis electrolyte abnormalities dehydration gastric outlet obstruction Basic blood work shows a white count of 17 hemoglobin of 14 platelet count of 311. Normal LFTs and lipase. BMP with a glucose of 152. test is negative. Toxicology positive for cannabinoids. CT of the abdomen pelvis was obtained which was read by radiology reviewed by myself. It appears it is negative for significant intra-abdominal pathology. Patient was treated with Zofran Ativan and Pepcid as well as IV fluids. He states that the vomiting has improved but the nausea is persisted. She states that she would like to go home and drink fluids. She states that if she is getting worse she will come back. I think this is a reasonable approach designed by the patient. Lab Data Attestation: I reviewed the patient's lab results. Labs: Laboratory Results - last 24 hr 08/18/25 08/18/25 11:47 13:45 WBC 17.0 H RBC 4.68 Hgb 14.0 Hct 42.2 MCV 90.2 MCH 29.9 MCHC 33.2 RDW Std Deviation 43.1 RDW Coeff of Jus 13.2 Plt Count 311 MPV 11.2 Immature Gran % (Auto) 0.600 Neut % (Auto) 81.7 H Lymph % (Auto) 12.3 L [place] % (Auto) 4.4 Eos % (Auto) 0.6 Baso % (Auto) 0.4 Absolute Neuts (auto) 13.9 H Absolute Lymphs (auto) 2.09 Nucleated RBC % 0 Sodium 140 Potassium 3.5 Chloride 105 Carbon Dioxide 20.4 L Anion Gap 15 BUN 10 Creatinine 0.65 L Estim Creat Clear Calc 145.14 Est GFR (MDRD) Non-Af 125 BUN/Creatinine Ratio 15.9 Glucose 152 H Calcium 10.4 Total Bilirubin 0.46 Direct Bilirubin 0.18 AST 17 ALT 11 Alkaline Phosphatase 81 Total Protein 8.2 Albumin 4.9 Globulin 3.3 Lipase 19 Serum , Qual NEGATIVE Urine Opiates Screen NEGATIVE U Buprenorphine Qual NEGATIVE Ur Oxycodone Screen NEGATIVE Urine Methadone Screen NEGATIVE Urine Fentanyl Screen NEGATIVE Ur Barbiturates Screen NEGATIVE Ur Phencyclidine Scrn NEGATIVE Ur Amphetamines Screen NEGATIVE U Benzodiazepines Scrn NEGATIVE Urine Cocaine Screen NEGATIVE U Cannabinoids Screen PRESUMPTIVE POSITIVE Radiography Diagnostic Testing: Clinical Impression(s) from Imaging Studies Abdomen/Pelvis CT 08/18/25 13:01 IMPRESSION: No acute abdominopelvic abnormalities. Reading Location: [facility] Discharge Plan Triage Chief Complaint: Nausea/Vomiting Other Complaint: Dental ED Provider: Ridge Perez Dx/Rx/DC Orders Clinical Impression: Nausea & vomiting, Abdominal pain Instructions: Abdominal Pain, ED Vomiting (Adult) Prescriptions: No Action pantoprazole 20 mg tablet,delayed release (DR/EC) 20 mg PO QDAY azithromycin 250 mg tablet 250 mg PO .COMPLEX Qty: 12 0RF Rx Instructions: 2 tablets (500 mg) on day 1, then 1 tablet daily on days 2 through 11 ferrous sulfate [iron] 325 mg (65 mg iron) tablet 325 mg PO QODAY labetalol 200 mg tablet 200 mg PO BID 10 Days Qty: 20 0RF Rx Instructions: Do not take unless we instruct you to start this ferrous sulfate [FeroSul] 325 mg (65 mg iron) tablet 325 mg PO QODAY 60 Days Qty: 30 1RF ibuprofen 600 mg tablet 600 mg PO Q6H PRN (Reason: Pain) 20 Days Qty: 60 1RF PNV no.95-ferrous fumarate-FA [] 28 mg iron- 800 mcg tablet 1 tab PO DAILY Primary Care Provider: Sofiya Bro Referrals: Sofiya Bro MD [Primary Care Provider, Internal Medicine] - As Needed Activity Restrictions/Additional Instructions: Utilize the Zofran you are prescribed by your PCP. I would refrain from any cannabis use as cannabis can exacerbate nausea and vomiting and some people Print Language: Faroese Disposition Disposition: Home, Self Care Discharge Date/Time: 08/18/25 15:00
[2025-08-18 12:27] LABS: Hematocrit 42.2 % (37-47); Hemoglobin 14.0 g/dL (12.0-15.0); Immature Granulocytes Count 0.100 X10^3/uL (0.0-0.0); Mean Corp Hgb Conc 33.2 g/dL (32-36); Mean Corpuscular Volume 90.2 fL (81-99); Mean Platelet Vol. 11.2 fl (6.2-12.0); NRBC Flagged by Analyzer 0 % (0-5); Platelet Count 311 K/mm3 (150-450); RBC Distribution Width CV 13.2 % (11.6-14.6); RBC Distribution Width SD 43.1 fl (35.1-43.9); Red Blood Count 4.68 M/mm3 (4.2-5.4); White Blood Count 17.0 K/mm3 (4.4-11.0)
[2025-08-18] MEDS: Famotidine 200 MG/20 ML MDV 20 MG in 0.9% Normal Saline (Pres. free 8 ML 300 MG IV (12:28)
[2025-08-18] MEDS: 0.9% Normal Saline (1000mL) 1,000 ML 1000 ML IV (12:28)
[2025-08-18 12:53] LABS: AST(SGOT) 17 U/L (<=31); Alanine Aminotransfer ALT/SGPT 11 U/L (<=34); Albumin, Serum 4.9 g/dL (3.5-5.0); Alkaline Phosphatase 81 U/L (35-104); Anion Gap 15 (5-15); BUN 10 mg/dL (4-19); BUN/Creat Ratio 15.9 RATIO (10-20); Bilirubin, Direct 0.18 mg/dL (0.00-0.30); Calcium,Total 10.4 mg/dL (7.6-11.0); Carbon Dioxide 20.4 mmol/L (21.0-32.0); Chloride 105 mmol/L (98-108); Estimated Creatinine Clearance 145.14 ml/min (50-250); Globulin 3.3 g/dL (2.2-4.2); Glucose 152 mg/dL (70-99); Internal QC Validated? YES +Cl - CLEAR BKGD; Lipase 19 U/L (13-75); Potassium 3.5 mmol/L (3.3-5.1); Pregnancy, Serum, hCG Quali. NEGATIVE Negative; Record Kit Lot#, Serum Preg. 0000980607
[2025-08-18 12:59] VITALS: BP 124/86; PULSE 88; RESP 14; O2SAT 100
--- NOTE | 2025-08-18 13:01 | CT_ITS ---
PROCEDURE: ABDOMEN/PELVIS W IV CONT ONLY 08/18/2025 REASON FOR EXAM: ABDOMINAL PAIN AND VOMITING TECHNIQUE: Procedure Code: [id number] Modality: CT Procedure: ABDOMEN/PELVIS W IV CONT ONLY Coronal and Sagittal reconstruction series were provided. CONTRAST: Isovue 370 VOLUME: 80 mL One or more dose reduction techniques were used (e.g., Automated exposure control, adjustment of the mA and/or kV according to patient size, use of iterative reconstruction technique. RADIATION DOSE SUMMARY: CTDlvol: 13.46 mGy DLP: 661.81 mGycm COMPARISON: CT abdomen and pelvis 08/26/2020.. FINDINGS: Lung bases: Clear. Liver: Unremarkable. Gallbladder: Unremarkable. No biliary dilation. Spleen: Unremarkable. Pancreas: Unremarkable. Adrenals: Unremarkable. Kidneys: Multiple bilateral kidney stones with the largest measures 4 mm at the lower pole of the right kidney. No hydronephrosis. Bladder: Unremarkable. Reproductive Organs: Unremarkable Bowel: No bowel wall thickening. No bowel obstruction. Appendix: Partially visualized and unremarkable. Lymph nodes: No lymphadenopathy. Vasculature: No aneurysm. Peritoneum / Retroperitoneum: No free air or free fluid. Bones: No acute bony abnormalities. CT/Abdomen/Pelvis W IV Cont ONLY IMPRESSION: No acute abdominopelvic abnormalities. Reading Location: [facility]
[2025-08-18 13:57] VITALS: BP 124/86; PULSE 80
[2025-08-18 14:55] LABS: Barbiturate Urine NEGATIVE (< 200 ng/mL); Benzodiazepine Urine NEGATIVE (< 200 ng/mL); PCP Urine NEGATIVE (< 25 ng/mL); THC Urine PRESUMPTIVE POSITIVE (< 50 ng/mL)
[2025-08-18 14:59] VITALS: BP 124/86; PULSE 80; RESP 16; TEMP 37; O2SAT 99
== END 2025-08-18 15:00 | disposition home or self-care (01) ==
PROVIDERS: Emergency Provider Emergency Medicine; PCP Internal Medicine; Visit Provider Emergency Medicine
DX: R11.2 Nausea with vomiting, unspecified (principal); F17.290 Nicotine dependence, other tobacco product, uncomplicated; R10.13 Epigastric pain
CPT/HCPCS: 74177; 80048; 80076; 80307; 83690; 84703; 85025; 96361; 96374; 96375; 99284; Q9967; J2405

== ENCOUNTER 2025-08-22 10:14 | Emergency (ER) | payer MEDICAID, SELFPAY ==
[2025-08-22 10:14] VITALS: BP 128/88; PULSE 119; RESP 18; TEMP 37.2; O2SAT 100; BMI 30.3
--- NOTE | 2025-08-22 10:46 | EDS_ITS ---
HPI History of Present Illness Chief Complaint: Nausea/Vomiting Narrative Narrative: Patient is a 24-year-old female past medical history of of PTSD, anxiety, depression, preeclampsia, asthma, marijuana use who presents to the emergency department with a chief complaint of nausea vomiting. Patient states that she had been having diarrhea for significant time and states that she was tired of this therefore she states that she made a doctor's appointment and had 1 scheduled on Thursday she states that she woke up that morning and had vomiting. States that she went to the appointment anyhow and notes that she was sent here to the emergency department to be evaluated and she states that she had a workup here including a CT scan. States that she was ultimately sent home. States that she is still having persistent vomiting and feeling terrible prompting her to come back. Patient did note that she did vomit some blood recently as well and she noted that she had blood in her urine which is also concerning for her prompting her to return to the emergency department. Patient states that she recently gave up smoking marijuana as well [facility] Medical History Nexplanon insertion Acute blood loss anemia atony of uterus with hemorrhage Severe preeclampsia Trauma PTSD (post-traumatic stress disorder) Anxiety Depression Pre-eclampsia History of pneumonia History of substance abuse Asthma Home Medications Medication Instructions Recorded Last Taken Type vit no.95-ferrous 1 tab PO DAILY 03/23/24 Unk nown History fumarate 28 mg-folic acid 800 mcg tablet () azithromycin 250 mg tablet 250 mg PO .COMPLEX #12 tabs 05/03/24 Unknown Rx pantoprazole 20 mg tablet,delayed 20 mg PO QDAY Unknown History release ferrous sulfate 325 mg (65 mg 325 mg PO QODAY 05/06/24 Unknown History iron) tablet (iron) ferrous sulfate 325 mg (65 mg 325 mg PO QODAY 60 days #30 tabs 05/10/24 Unknown Rx iron) tablet (FeroSul) ibuprofen 600 mg tablet 600 mg PO Q6H PRN Pain 20 da ys #60 05/10/24 Unknown Rx TABLETS labetalol 200 mg tablet 200 mg PO BID 10 days #20 ta bs 05/10/24 Unknown Rx acyclovir 200 mg capsule 200 mg PO TID 7 days #21 cap s 08/22/25 Unknown Rx capsaicin 0.025 % topical cream 1 applic topical TID # 50 grams 08/22/25 Unknown Rx metoclopramide HCl 10 mg tablet 10 mg PO Q6H PRN nause a and 08/22/25 Unknown Rx (Reglan) vomiting #20 tabs potassium chloride 20 mEq oral 20 meq PO BID 5 days #1 0 ea 08/22/25 Unknown Rx packet Allergy/AdvReac Type Severity Reaction Status Date / Time amoxicillin (Amoxicillin) Allergy NOT SURE, Verified 08/22/25 10:15 WAS A BABY lavender (Lavandula Allergy Rash Verified 08/22/25 10:15 angustifolia) Family History Mother Depression Substance abuse Brother Depression Grandfather Substance abuse Social History Smoking Status: Current every day smoker tobacco type: e-cigarettes Tobacco: How many years used: 4 alcohol intake: former year quit: 2015 substance use type: former substance user 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 use: 04/09/18 and methamphetamine what type of physical activity do you participate in: yoga, aerobics and weight training frequency: 1-2 times per week ROS ROS ED ROS Narrative Constitutional: Denies any fevers, chills, headaches Eyes: Denies changes double vision blurry vision Cardiovascular: Complains of chest pain Respiratory: Denies coughing wheezing shortness of breath Abdomen: Complains of nausea vomiting as noted above denies any abdominal pain : Complains of hematuria as noted above denies painful urination or increased frequency of urinating Neurological: Denies any numbness, weakness, tingling Musculoskeletal: Denies back pain Skin: Denies any rashes or lesions EXAM Physical Exam Narrative Exam Narrative: General: Patient was lying in bed resting comfortably did not appear to be acute distress Head: Atraumatic, normocephalic Eyes: PERRL bilaterally, EOMI bilaterally, no conjunctival injection noted Neck: Soft, supple, trachea midline Cardiovascular: Patient tachycardic with a regular rhythm Respiratory: Clear to auscultation bilaterally Abdomen: soft, nondistended, no tenderness to palpation Extremities: +5/5 strength noted in the bilateral lower extremities Neurological: Patient follow commands that she was at [facility] years 2024 Skin: Warm, dry, intact no rashes or lesions noted Const Vital Signs: 11/11/25 10:14 08/22/25 12:14 Temperature 99 F Temperature Source Oral Pulse Rate 119 H 71 Respiratory Rate 18 16 Blood Pressure 128/88 H 136/74 H Blood Pressure Mean 101 94 Pulse Ox 100 98 Oxygen Delivery Method Room Air MDM MDM MDM Narrative Medical decision making narrative: Patient is a 24-year-old female who presents to the emergency department with a chief complaint of nausea vomiting. On the differential diagnose includes but not limited to Boerhaave syndrome, Germaine-Marquez tear, viral gastroenteritis, cannabis hyperemesis syndrome. Once workup is obtained reviewed she will be reevaluated patient be on IV fluids and Reglan. Patient CBC reviewed and showed no evidence of leukocytosis white blood count 10.8, hemoglobin 13.2, platelet count 277. Patient sodium is 135, potassium was mildly low indicating hypokalemia at 3.1 therefore she was given 60 mill equivalents of supplementation here in the emergency department. Creatinine normal at 0.66, glucose was 111. Patient's AST and ALT normal at 24 and 29 respectively lipase normal at 19. Patient TSH normal at 1.78 free T4 and T3 were 1 and 2.1 respectively. Patient urinalysis reviewed and showed 150 ketones negative nitrites 25 leukocyte esterase 0-5 white cells with 1+ bacteria she does not have any urinary symptoms therefore do not believe she has an infection. Patient's chest x-ray reviewed from [facility] radiology showed no acute cardiopulmonary processes and her CT abdomen pelvis IV contrast reviewed from 08/18/2025 which showed no acute findings without point time either. On reevaluation the patient she is feeling better she was also given D5 NS. She will be given a prescription for capsaicin, Reglan and she is requesting a prescription for her herpes outbreak around her mouth which she will be given acyclovir 4. Patient was encouraged to follow-up with her doctor in outpatient setting and return with worsening symptoms or concerns. She is agreeable this plan all question concerns answered she was discharged home in stable condition. Lab Data Labs: Laboratory Results - last 24 hr 08/22/25 10:50 WBC 10.8 RBC 4.46 Hgb 13.2 Hct 40.2 MCV 90.1 MCH 29.6 MCHC 32.8 RDW Std Deviation 43.9 RDW Coeff of Jus 13.3 Plt Count 277 MPV 10.9 Immature Gran % (Auto) 0.400 Neut % (Auto) 82.2 H Lymph % (Auto) 12.6 L Gladwin % (Auto) 4.5 Eos % (Auto) 0.0 Baso % (Auto) 0.3 Absolute Neuts (auto) 8.9 H Absolute Lymphs (auto) 1.36 Nucleated RBC % 0 Sodium 135 Potassium 3.1 L Chloride 96 L Carbon Dioxide 26.8 Anion Gap 13 BUN 12 Creatinine 0.66 L Estim Creat Clear Calc 142.07 Est GFR (MDRD) Non-Af 124 BUN/Creatinine Ratio 18.4 Glucose 111 H Calcium 9.4 Total Bilirubin 1.09 AST 24 ALT 29 Alkaline Phosphatase 73 Total Protein 7.3 Albumin 4.6 Globulin 2.8 Albumin/Globulin Ratio 1.7 Lipase 19 TSH 1.780 Free T4 1.00 Free T3 pg/dL 2.1 L Urine Color Yellow Urine Clarity Clear Urine pH 6.0 Ur Specific Sellers 1.015 Urine Protein 15 H Urine Glucose (UA) Normal Urine Ketones 150 A* Urine Occult Blood 150 H Urine Nitrite Negative Urine Bilirubin Negative Urine Urobilinogen 4 H Ur Leukocyte Esterase 25 H Urine RBC 0-5 SEEN Urine WBC 0-5 SEEN Ur Squamous Epith Cells 0 SEEN Urine Bacteria 1+ Urine Mucus 0 SEEN Radiography Diagnostic Testing: Clinical Impression(s) from Imaging Studies Chest X-Ray 08/22/25 11:00 IMPRESSION: NEGATIVE CHEST Reading Location: [facility] Discharge Plan Triage Chief Complaint: Nausea/Vomiting ED Provider: Sudhir Marcus Dx/Rx/DC Orders Clinical Impression: Nausea & vomiting, Oral herpes, History of hepatitis A Prescriptions: New metoclopramide HCl [Reglan] 10 mg tablet 10 mg PO Q6H PRN (Reason: nausea and vomiting) Qty: 20 0RF potassium chloride 20 mEq packet 20 meq PO BID 5 Days Qty: 10 0RF capsaicin 0.025 % cream 1 applic topical TID Qty: 50 0RF Rx Instructions: do not wash area for at least 30 min after application acyclovir 200 mg capsule 200 mg PO TID 7 Days Qty: 21 0RF No Action pantoprazole 20 mg tablet,delayed release (DR/EC) 20 mg PO QDAY azithromycin 250 mg tablet 250 mg PO .COMPLEX Qty: 12 0RF Rx Instructions: 2 tablets (500 mg) on day 1, then 1 tablet daily on days 2 through 11 ferrous sulfate [iron] 325 mg (65 mg iron) tablet 325 mg PO QODAY labetalol 200 mg tablet 200 mg PO BID 10 Days Qty: 20 0RF Rx Instructions: Do not take unless we instruct you to start this ferrous sulfate [FeroSul] 325 mg (65 mg iron) tablet 325 mg PO QODAY 60 Days Qty: 30 1RF ibuprofen 600 mg tablet 600 mg PO Q6H PRN (Reason: Pain) 20 Days Qty: 60 1RF PNV no.95-ferrous fumarate-FA [] 28 mg iron- 800 mcg tablet 1 tab PO DAILY Primary Care Provider: Sofiya Bro Referrals: Sofiya Bro MD [Primary Care Provider, Internal Medicine] Activity Restrictions/Additional Instructions: Follow-up with your doctors in outpatient setting. Return with worsening symptoms or any concerns. Your blood work did not show any acute findings today your chest x-ray was normal. Use prescriptions as prescribed Print Language: Micronesian Disposition Disposition: Home, Self Care
[2025-08-22] MEDS: 0.9% Normal Saline (1000mL) 1,000 ML 999 ML IV (10:53)
[2025-08-22 10:58] LABS: Color, Urine Yellow (Yellow); Glucose, Dipstick Normal (Normal); Hematocrit 40.2 % (37-47); Hemoglobin 13.2 g/dL (12.0-15.0); Immature Granulocytes Count 0.040 X10^3/uL (0.0-0.0); Leukocyte Esterase-Dipstick 25 /ul (Negative); Mean Corp Hgb Conc 32.8 g/dL (32-36); Mean Corpuscular Volume 90.1 fL (81-99); Mean Platelet Vol. 10.9 fl (6.2-12.0); Mucous, Urine 0 SEEN /hpf (<or=2+); NRBC Flagged by Analyzer 0 % (0-5); Nitrite-Dipstick Negative (Negative); Occult Blood-Urine 150 /ul (Negative); Platelet Count 277 K/mm3 (150-450); Protein-Dipstick 15 mg/dl (Negative); RBC Distribution Width CV 13.3 % (11.6-14.6); RBC Distribution Width SD 43.9 fl (35.1-43.9); Red Blood Count 4.46 M/mm3 (4.2-5.4); Specific Gravity, Urine 1.015 (1.002-1.030); Squamous Epithelial Cells - UA 0 SEEN /hpf (5-10); Urine Bilirubin Dipstick Negative (Negative); White Blood Count 10.8 K/mm3 (4.4-11.0)
--- NOTE | 2025-08-22 11:00 | RAD_ITS ---
PROCEDURE: CHEST PA AND LATERAL 08/22/2025 REASON FOR EXAM: CHEST PAIN TECHNIQUE: Procedure Code: RADCXR Modality: DX Procedure: CHEST PA AND LATERAL COMPARISON: August 23, 2020. FINDINGS: Hardware: None Heart: The heart size is normal. Mediastinum: The mediastinal contour is unremarkable. Lungs: The lungs are clear. Bones: The bones are unremarkable. RAD/Chest PA and Lateral IMPRESSION: NEGATIVE CHEST Reading Location: [id number]
[2025-08-22 11:02] LABS: Ketone-Dipstick 150 mg/dl (Negative)
--- NOTE | 2025-08-22 11:03 | ED.RN ---
Critical urine ketone of 150 received from lab.
[2025-08-22 11:08] LABS: Red Blood Cells-Urine 0-5 SEEN /hpf (0-5)
[2025-08-22 11:25] LABS: AST(SGOT) 24 U/L (<=31); Alanine Aminotransfer ALT/SGPT 29 U/L (<=34); Albumin, Serum 4.6 g/dL (3.5-5.0); Alkaline Phosphatase 73 U/L (35-104); Anion Gap 13 (5-15); BUN 12 mg/dL (4-19); BUN/Creat Ratio 18.4 RATIO (10-20); Calcium,Total 9.4 mg/dL (7.6-11.0); Carbon Dioxide 26.8 mmol/L (21.0-32.0); Chloride 96 mmol/L (98-108); Estimated Creatinine Clearance 142.07 ml/min (50-250); Free T3 2.1 pg/mL (2.18-3.98); Globulin 2.8 g/dL (2.2-4.2); Glucose 111 mg/dL (70-99); Lipase 19 U/L (13-75); Potassium 3.1 mmol/L (3.3-5.1)
[2025-08-22 12:14] VITALS: BP 136/74; PULSE 71; RESP 16; O2SAT 98
[2025-08-22] MEDS: Potassium Chloride Oral Tablet 20 MEQ 60 MEQ PO (12:16)
[2025-08-22] MEDS: Dextrose 5%/0.9% NaCl 1,000 ML 999 ML IV (12:16)
[2025-08-22 12:58] VITALS: BP 136/74; PULSE 71; RESP 16; TEMP 36.9; O2SAT 98
== END 2025-08-22 13:04 | disposition home or self-care (01) ==
PROVIDERS: Emergency Provider Emergency Medicine; PCP Internal Medicine; Visit Provider Emergency Medicine
DX: R11.2 Nausea with vomiting, unspecified (principal); B00.9 Herpesviral infection, unspecified; F17.290 Nicotine dependence, other tobacco product, uncomplicated; Z86.19 Personal history of other infectious and parasitic diseases; R31.9 Hematuria, unspecified
CPT/HCPCS: 71046; 80053; 81001; 83690; 84439; 84443; 84481; 85025; 96361; 96374; 99283; A4216

== ENCOUNTER 2025-08-24 18:00 | Emergency (ER) | payer MEDICAID, SELFPAY ==
[2025-08-24 18:01] VITALS: BP 145/89; PULSE 97; RESP 18; TEMP 36.3; O2SAT 98
--- NOTE | 2025-08-24 18:17 | EX.ED.DYSGE1 ---
HPI History of Present Illness Chief Complaint: Allergic Reaction Narrative Narrative: Patient is a 24-year-old female presenting to the emergency department for concern of a possible allergic reaction. Patient states that she was prescribed Reglan a few days ago for "being sick". States that she took it today with her Seroquel and developed a feeling of "clinching in my jaw". States that her jaw feels very tight. She has not taken reglan before. No sore throat, neck pain, difficulty swallowing or speaking. No drooling. No facial swelling. No skin rashes. No chest pain, SOB, abdominal pain, nausea, vomiting. [facility] Medical History Nexplanon insertion Acute blood loss anemia atony of uterus with hemorrhage Severe preeclampsia Trauma PTSD (post-traumatic stress disorder) Anxiety Depression Pre-eclampsia History of pneumonia History of substance abuse Asthma Home Medications Medication Instructions Recorded Last Taken Type capsaicin 0.025 % topical cream 1 applic topical TID #50 grams 08/22/25 Unknown Rx metoclopramide HCl 10 mg tablet 10 mg PO Q6H PRN nausea and 08/22/25 Unknown Rx (Reglan) vomiting #20 tabs ondansetron 4 mg disintegrating 4 mg PO Q8H PRN PRN Nausea #10 tabs 08/24/25 Unknown Rx tablet prazosin 1 mg capsule 1 mg PO QHS dizziness 08/24/25 Unknown History valacyclovir 1 gram tablet 1,000 mg PO DAILY 08/24/25 Unknown History Allergy/AdvReac Type Severity Reaction Status Date / Time amoxicillin (Amoxicillin) Allergy NOT SURE, Verified 08/24/25 18:01 WAS A BABY lavender (Lavandula Allergy Rash Verified 08/24/25 18:01 angustifolia) Family History Mother Depression Substance abuse Brother Depression Grandfather Substance abuse Social History Smoking Status: Current every day smoker tobacco type: e-cigarettes Tobacco: How many years used: 4 alcohol intake: former year quit: 2015 substance use type: former substance user 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 use: 04/09/18 and methamphetamine what type of physical activity do you participate in: yoga, aerobics and weight training frequency: 1-2 times per week ROS ROS ED ROS Narrative see HPI EXAM Physical Exam Narrative Exam Narrative: Vital signs: Reviewed General: Alert and oriented x 3. No acute distress HEENT: Head is normocephalic and atraumatic, sinuses nontender, pupils equal round and reactive. No tenderness to palpation of the temples. Nares are patent. Oropharynx and throat exams normal. No trismus present. Patient able to fully open and close jaw without difficulty. No swelling the jaw or cheeks. No erythema or warmth of the cheeks or jaw. Teeth are lining up appropriately. No peritonsillar abscess. No posterior erythema or exudates. Uvula is midline. Tongue is midline. No tongue elevation. No bogginess of the palates. Neck: Supple without lymphadenopathy nontender. Trachea midline. No mass or swelling felt on inspection of the neck. Cardiovascular: Regular rate and rhythm, no murmurs. No rubs or gallops. Normal S1 and S2 Respiratory: Clear to auscultation bilaterally. No wheezes, rales, rhonchi Abdominal: Soft and nontender. Normal bowel sounds. No guarding or rebound. Nonsurgical abdomen Extremities: No tenderness. No bruising. Normal range of motion. Normal sensation. Skin: No rash or redness. The rest of the physical exam is unremarkable Const Vital Signs: 08/24/25 18:01 Temperature 97.4 F L Temperature Source Temporal Pulse Rate 97 Respiratory Rate 18 Blood Pressure 145/89 H Blood Pressure Mean 107 Pulse Ox 98 Oxygen Delivery Method Room Air MDM MDM MDM Narrative Medical decision making narrative: Patient is a 24-year-old female presenting to the emergency department for concern of an allergic reaction. Patient was seen and examined. Vitals are stable. Patient resting in bed comfortably no acute distress. Patient likely having a dystonic reaction to the Reglan. She was instructed to discontinue taking this medication. She was given IV Benadryl. She had no trauma to her face or jaw. Her jaw appears aligned and teeth are coming together appropriately I do not think this is a temporomandibular dislocation or fracture. She has no findings of cellulitis or abscess overlying her cheek or jaw. No evidence of parotitis or mastoiditis. Patient reevaluated and is feeling much better. I advised her to discontinue taking the Reglan and will prescribe her Zofran as needed instead. Advised her to take p.o. Benadryl if she has reoccurrence of the symptoms were to return to the emergency department your evaluation in the Emergency Department did not reveal any acute reason for admission. However, I want to emphasize that you may be early in the course of a disease process or illness even if it is not present. For this reason you should follow-up within 24 hours for reevaluation with either your primary care physician or if necessary back here in the Emergency Department. You should return to the Emergency Department immediately if your symptoms worsen or new symptoms develop.`` Clinical impression Dystonic reaction History & Record Review Discussion w/independent historian: Patient Discharge Plan Triage Chief Complaint: Allergic Reaction ED Provider: Sara Horne Dx/Rx/DC Orders Clinical Impression: Dystonic drug reaction Instructions: ED Medicine Reaction, Dystonic Prescriptions: New ondansetron 4 mg tablet,disintegrating 4 mg PO Q8H PRN PRN (Reason: Nausea) Qty: 10 0RF No Action prazosin 1 mg capsule 1 mg PO QHS valacyclovir 1 gram tablet 1,000 mg PO DAILY metoclopramide HCl [Reglan] 10 mg tablet 10 mg PO Q6H PRN (Reason: nausea and vomiting) Qty: 20 0RF capsaicin 0.025 % cream 1 applic topical TID Qty: 50 0RF Rx Instructions: do not wash area for at least 30 min after application Primary Care Provider: Sofiya Bro Referrals: Sofiya Bro MD [Primary Care Provider, Internal Medicine] - As soon as possible Activity Restrictions/Additional Instructions: Please stop taking the Reglan. I prescribed you Zofran instead if you need anything for your nausea. If you develop similar symptoms again you can take 50 mg of oral Benadryl to help with your symptoms. You can do this for the next few days. Your evaluation in the Emergency Department did not reveal any acute reason for admission. However, I want to emphasize that you may be early in the course of a disease process or illness even if it is not present. For this reason you should follow-up within 24 hours for reevaluation with either your primary care physician or if necessary back here in the Emergency Department. You should return to the Emergency Department immediately if your symptoms worsen or new symptoms develop. Print Language: Uzbek Disposition Disposition: Home, Self Care Discharge Date/Time: 08/24/25 19:36
[2025-08-24] MEDS: DiphenhydrAMINE 50 MG/ML Syringe 25 MG IV (18:22)
--- OUTSIDE RECORDS SUMMARY | 2025-08-24 19:14 | XMS RPT_ITS | CCD ---
Author Organization [facility] Care Team Providers Care Airline Ticket Agent Name Role Phone FANNY NICOLE MD Admitting Unavailable FANNY NICOLE MD Attending Unavailable FANNY NICOLE MD Primary Care Unavailable NO, DOCTOR ON Consulting Unavailable NO, DOCTOR ON Referring Unavailable Dieudonne ISRAEL, Elsa Primary Care Provider [phone] Elsa Bro MD Primary Care Provider PHYSICIAN, NONE Primary Care Physician Unavailab Elsa Hall MD Primary Care Provider [phone] LEILA TOMLINSON MD Attending Unavail able PHYSICIAN, NONE Primary Care Unavailable Elsa Bro MD Primary Care Provider Maylin Mcfarlane PA-C Unavailable 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 Tremayne Quiñonez MD Emergency Provider [phone] Care Physician, No Primary Primary Care Provider Unavailable GANTA, ELSA Primary Care Unavailable TAINA ALBRIGHT Attending Unavailable GANTA, ELSA Primary Care Unavailable KELLI BOYLE Attending Unavailable GANTA, ELSA Primary Care Unavailable BINTA CARCAMO Referring Unavailable GANTA, ELSA Primary Care Unavailable GANTA, ELSA Primary Care Unavailable BINTA CARCAMO Attending Unavailable KELLI BOYLE Referring Unavailable GANTA, ELSA Primary Care Unavailable BENDARAM RUTHIESAM JENSEN Attending Unavaila ble GANTA, ELSA Primary Care Unavailable BENDARAM, RUTHIE JENSEN Referring Unavaila ble GANTA, ELSA Primary Care Unavailable GANTA, ELSA Primary Care Unavailable HAURY, REAGAN Attending Unavailable GANTA, ELSA Primary Care Unavailable HAURY, REAGAN Referring Unavailable GANTA, ELSA Primary Care Unavailable KELLI BOYLE Attending Unavailable BENDARAM, RUTHIE JENSEN Attending Unavaila ble GANTA, ELSA Primary Care Unavailable HAURY, REAGAN Referring Unavailable GANTA, ELSA Primary Care Unavailable SELF Referring Unavailable GANTA, ELSA Primary Care Unavailable GANTA, ELSA Primary Care Unavailable BINTA CARCAMO Attending Unavailable GANTA, ELSA Primary Care Unavailable HAURY, REAGAN Attending Unavailable BENDARAM, RUTHIE JENSEN Attending Unavaila ble GANTA, ELSA Primary Care Unavailable GANTA, ELSA Primary Care Unavailable ULISES BINTA Referring Unavailable KARINA KWONG Attending Unavailable GANTA, ELSA Primary Care Unavailable BINTA HATHAWAY Attending Unavailable GANTA, ELSA Primary Care Unavailable HAURY, REAGAN Referring Unavailable GANTA, ELSA Primary Care Unavailable HAURY, REAGAN Referring Unavailable GANTA, ELSA Primary Care Unavailable KARINA KWONG Attending Unavailable GANTA, ELSA Primary Care Unavailable LINDA FELTON Attending Unavailable Care Physician, No Primary Primary Care Unava ilable Tremayne Quiñonez Attending Unavailable Ridge Perez Attending Unavailable Ganta, Elsa Primary Care Unavailable Sudhir Marcsu Attending Unavailable Ganta, Elsa Primary Care Unavailable Allergies Allergy Classification Reported Allergen(s) Allergy Type Date of Onset Reaction(s) Facility Penicillins (antibiotic) (2 sources) Amoxicillin Drug Allergy 11-24-2013 [facility] (2 sources) Amoxicillin; Translations: [AMOXICILLIN] Drug Allergy 11-24-2013 [facility] (1 source) Penicillin Drug Allergy [facility] (20 sources) Amoxicillin; Translations: [amoxicillin] Drug Allergy 11-24-2013 [facility] Work Phone: (16 sources) lavender (Lavandula angustifolia); Translations: [LAVENDER (LAVANDULA ANGUSTIFOLIA)] Allergy to substance 03-12-2023 [facility] (1 source) Amoxicillin Drug Allergy 08-22-2025 [facility] Repository (1 source) lavender (Lavandula angustifolia) Drug allergy (disorder) 08-22-2025 [facility] Repository Medications Current Medications Medication Drug Class(es) Dates Sig (Normalized) Sig (Original) acyclovir 400 mg oral tablet (20 sources) Herpesvirus Nucleoside Analog DNA Polymerase Inhibitor, Herpes Simplex Virus Nucleoside Analog DNA Polymerase Inhibitor, Herpes Zoster Virus Nucleoside Analog DNA Polymerase Inhibitor Start: 10-07-2024 End: 10-12-2024 take 1 tablet by mouth three times daily acyclovir (ZOVIRAX) 400 mg tablet Indications: Recurrent cold sores Take 1 tablet by mouth three times a day for 5 days. 15 tablet 10/07/2024 10/12/2024 Active Start: 07-06-2023 End: 07-11-2023 take 1 tablet by mouth three times daily acyclovir (ZOVIRAX) 400 mg tablet Indications: Recurrent cold sores Take 1 tablet by mouth three times daily for 5 days. 15 tablet 0 07/06/2023 07/11/2023 Active Start: 02-06-2022 End: 02-11-2022 take 1 tablet by mouth twice daily acyclovir (ZOVIRAX) 800 mg tablet Take 1 tablet by mouth twice daily for 5 days. 10 tablet 0 02/06/2022 02/11/2022 Active Start: 11-21-2021 End: 12-26-2022 acyclovir (ZOVIRAX) 400 mg t ablet TAKE 1 TABLET THREE TIMES DAILY FOR 5 DAYS 0 11/21/2021 12/26/2022 Discontinued Start: 01-28-2020 End: 02-02-2020 take 1 tablet by mouth five times daily Acyclovir 400 MG tablet Discontinued 400 mg PO 5 TIMES DAILY 25 5 0 January 28, 2020 12:00am February 01, 2020 12:00am February 02, 2020 12:02am Comment on above: Take 1 tablet by alicia th twice daily for 5 days. TAKE 1 TABLET THREE TIMES DAILY FOR 5 DAYS Take 1 tablet by alicia th three times daily for 5 days. azithromycin 250 mg oral tablet (7 sources) Macrolide Antimicrobial Start: 05-03-2024 Azithromycin 250 mg tablet Active 250 mg PO .COMPLEX 12 May 03, 2024 12:00am 2 tablets (500 mg) on day 1, then 1 tablet daily on days 2 through 11 Start: 01-27-2024 End: 01-27-2024 take 2 tablets by mouth once azithromycin (ZITHROMAX) 500 mg tablet Take 2 tablets by mouth one time only for 1 dose. 2 tablet 0 01/27/2024 01/27/2024 Start: 08-05-2018 End: 08-10-2018 take 1 tablet by mouth once daily Azithromycin 500 MG tablet Discontinued 500 mg PO DAILY 5 5 0 August 05, 2018 12:00am August 09, 2018 12:00am August 10, 2018 12:13am Comment on above: Take 2 tablets by mo [facility] one time only for 1 dose. cefdinir 300 mg oral capsule (2 sources) Cephalosporin Antibacterial Start: 10-30-2024 End: 11-06-2024 take 1 capsule by mouth twice daily cefdinir (OMNICEF) 300 mg capsule Take 1 capsule by mouth two times a day for 7 days. 14 capsule 10/30/2024 11/06/2024 Active Start: 05-02-2022 End: 05-09-2022 take 1 capsule by mouth twice daily cefdinir (OMNICEF) 300 mg capsule Indications: Other acute nonsuppurative otitis media of left ear, recurrence not specified Take 1 capsule by mouth twice daily for 7 days. 14 capsule 0 05/02/2022 05/09/2022 Active Comment on above: Take 1 capsule by [facility] twice daily for 7 days. Ethinyl Estradiol / Levonorgestrel (7 sources) Progestin, Estrogen, Progestin-containing Intrauterine Device Start: 10-25-19 End: 01-13-20 take 1 tablet by mouth once daily Levonorgestrel-Ethin yl Estrad (AVIANE) 0.1mg - 20mcg per tablet Take 1 tablet by mouth once daily. 84 tablet 10/25/2024 01/12/2025 Discontinued Start: 10-25-2024 End: 09-26-2025 take 1 tablet by mouth once daily Levonorgestrel-Ethinyl Estrad (AVIANE) 0.1mg - 20mcg per tablet Take 1 tablet by mouth once daily. 84 tablet 10/25/2024 09/26/2025 Active ferrous sulfate 325 mg oral tablet (20 sources) Start: 05-06-2024 take 1 tablet by mouth every other day Ferrous Sulfate (Ferosul) 325 mg (65 mg iron) tablet Active 325 mg PO EVERY OTHER DAY 30 60 1 May 10, 2024:00am End: 06-24-2024 ferrous sulfate 325 mg (65 m g iron) EC tablet Take 325 mg by mouth. 06/24/2024 Discontinued fluconazole 150 mg oral tablet (4 sources) Azole Antifungal Start: 12-04-2024 End: 12-04-2024 fluconazole (DIFLUCAN) 150 mg tablet Indications: Vaginal yeast infection Take 1 tablet by mouth one time only for 1 dose. If symptoms have not improved in 72 hours may take second dose 2 tablet 12/04/2024 12/04/2024 Active Start: 08-01-2023 End: 03-23-2024 Fluconazole 150 mg tablet Di scontinued 150 mg PO Every 3 Days 2 0 August 01, 2023 12:00am March 23, 2024 4:48pm Start: 07-02-2022 End: 07-02-2022 take 1 tablet by mouth once fluconazole (DIFLUCAN) 150 mg tablet Take 1 tablet by mouth one time only for 1 dose. 1 tablet 0 07/02/2022 07/02/2022 Active Start: 06-23-2022 End: 06-23-2022 take 1 tablet by mouth once fluconazole (DIFLUCAN) 150 mg tablet Indications: Feared condition not demonstrated Take 1 tablet by mouth one time only for 1 dose. 1 tablet 0 06/23/2022 06/23/2022 Active Comment on above: Take 1 tablet by alicia one time only for 1 dose. fluticasone propionate 0.05 mg/actuat metered dose nasal spray (4 sources) Corticosteroid Start: 11-18-19 End: 01-13-20 take 2 spray(s) by mouth once daily fluticasone (FLONASE) 50 mcg/actuation nasal spray Indications: Dysfunction of left eustachian tube Use 2 Sprays in each nostril once daily. Rinse mouth after use. 1 Each 11/18/2024 01/12/2025 Discontinued ibuprofen 600 mg oral tablet (1 source) Nonsteroidal Anti-inflammatory Drug Start: 05-10-20 24 take 1 tablet by mouth every six hours as needed for pain Ibuprofen 600 mg tablet Active 600 mg PO EVERY 6 HOURS as needed for Pain 60 20 May 10, 2024 12:00am levothyroxine sodium 0.075 mg oral tablet (15 sources) l-Thyroxine Start: 06-02-20 25 take 1 tablet by mouth once daily levothyroxine (SYNTHROID) 75 mcg tablet Indications: Elevated TSH , Acquired hypothyroidism Take 1 tablet by mouth once daily. 90 tablet 06/02/2025 Active Start: 11-22-2024 End: 05-29-2025 take 1 tablet by mouth once daily levothyroxine (SYNTHROID) 75 mcg tablet Indications: Elevated TSH , Acquired hypothyroidism Take 1 tablet by mouth once daily. 90 tablet 02/17/2025 05/29/2025 Discontinued metroNIDAZOLE 500 mg oral tablet (6 sources) Nitroimidazole Antimicrobial Start: 09-27-2024 End: 10-04-2024 take 1 tablet by mouth twice daily metroNIDAZOLE (FLAGYL) 500 mg tablet Take 1 tablet by mouth two times a day for 7 days. 14 tablet 09/27/2024 10/04/2024 Active Start: 08-30-2024 End: 09-06-2024 take 1 tablet by mouth twice daily metroNIDAZOLE (FLAGYL) 500 mg tablet Take 1 tablet by mouth two times a day for 7 days. 14 tablet 08/30/2024 09/06/2024 Active Start: 01-27-2024 End: 02-03-2024 take 1 tablet by mouth twice daily metroNIDAZOLE (FLAGYL) 500 mg tablet Take 1 tablet by mouth two times a day for 7 days. 14 tablet 0 01/27/2024 02/03/2024 Active Comment on above: Take 1 tablet by alicia two times a day for 7 days. pantoprazole 20 mg delayed release oral tablet (20 sources) Proton Pump Inhibitor Start: 4 End: 4 take 1 tablet by mouth once daily Pantoprazole 20 mg tablet,delayed release (DR/EC) Active 20 mg PO daily May 03, 2024 12:00am permethrin 50 mg/ml topical cream (2 sources) Pyrethroid Start: 3 End: 3 permethrin (ELIMITE) 5 % cream Apply 1 application to affected area one time only for 1 dose. massage into skin from neck to feet, leave on 8-12hrs, wash off; Info: repeat 2wks if live mites persist. Itching may persist after effective treatment. 60 g 0 11/09/2022 11/09/2022 Active Start: 11-06-2022 End: 11-07-2022 permethrin 5% topical cream Dose = 1 melanie, Topical, qDay, Scabies: Apply to skin ONCE head to feet, remove by washing after 8 to 14 hours, # 60 gram(s), 0 Refill(s), Scabies Start Date: 11/06/22 Stop Date: 11/07/22 Status: Ordered Comment on above: Apply 1 application to affected area one time only for 1 dose. massage into skin from neck to feet, leave on 8-12hrs, wash off; Info: repeat 2wks if live mites persist. Itching may persist after effective treatment. Pnv Cmb#95-Ferrous Fumarate-Fa () 28 mg iron- 800 mcg tablet (1 source) Start: 03-23-2024 Pnv Cmb#95-Ferrous Fumarate-Fa () 28 mg iron- 800 mcg tablet Active 1 {tbl} PO DAILY March 23, 2024 12:00am prazosin 1 mg oral capsule (20 sources) alpha-Adrenergic Ruben Start: 02-09-2025 take 1 capsule by mouth twice daily prazosin (MINIPRESS) 1 mg cap Take 1 mg by mouth two times a day. 02/09/2025 Active prazosin HCl (NV AZOSIN ORAL) Take 2 mg by mouth. 0 Active Comment on above: Take 2 mg by mouth. QUEtiapine 50 mg oral tablet (20 sources) Atypical Antipsychotic Start: take 1 tablet by mouth once daily at bedtime QUEtiapine (SEROQUEL) 50 mg tablet Take 50 mg by mouth daily at bedtime. 02/09/2025 Active Start: 01-16-2023 End: 03-23-2024 take 1 tablet by mouth once daily Quetiapine (Seroquel) 300 mg Tablet Discontinued 300 mg PO DAILY January 16, 2023 12:00am March 23, 2024 4:49pm Start: 12-17-2021 QUEtiapine (SE ROQUEL) 50 mg tablet 300 mg. 0 12/17/2021 Active Start: 12-17-2021 QUEtiapine (SE ROQUEL) 50 mg tablet 200 mg. 0 12/17/2021 Active Start: 12-17-2021 QUEtiapine (SE ROQUEL) 50 mg tablet 100 mg. 0 12/17/2021 Active Start: 12-17-2021 QUEtiapine (SE ROQUEL) 50 mg tablet Take 1 Tablet By Oral Route 1 at bedtime 0 12/17/2021 Active Comment on above: Take 1 Tablet By Ora l Route 1 at bedtime 100 mg. 200 mg. 300 mg. sertraline 50 mg oral tablet (20 sources) Serotonin Reuptake Inhibitor take 1 tablet by mouth once daily sertraline (ZOLOFT) 50 mg tablet Take 50 mg by mouth once daily. Active take 1 tablet by alicia th once daily, then take 0.5 tablet by mouth once daily sertraline (ZOLOFT) 100 mg tablet Take 1 50 mg by mouth once daily. 1 and a half daily 0 Active Comment on above: Take 100 mg by mouth once daily. 1 and a half daily Take 150 mg by mouth once daily. 1 and a half daily triamcinolone acetonide 1 mg/ml topical cream (1 source) Corticosteroid Start: 01-14-20 End: 01-28-20 triamcinolone acetonide (KENALOG) 0.1 % cream Indications: Rash Apply 1 application to affected area twice daily for 14 days. Apply to affected area. Location: knees 30 g 0 01/13/2022 01/27/2022 Active Comment on above: Apply 1 application to affected area twice daily for 14 days. Apply to affected area. Location: knees valACYclovir 1000 mg oral tablet (12 sources) Herpesvirus Nucleoside Analog DNA Polymerase Inhibitor, Herpes Simplex Virus Nucleoside Analog DNA Polymerase Inhibitor, Herpes Zoster Virus Nucleoside Analog DNA Polymerase Inhibitor Start: 01-13-20 25 take 1 tablet by mouth once daily valACYclovir (VALTREX) 1 gram tablet Indications: Recurrent genital herpes Take 1 tablet by mouth once daily. 90 tablet 3 01/12/2025 Active Start: 09-07-2024 End: 09-12-2024 take 1 tablet by mouth once daily valACYclovir (VALTREX) 1 gram tablet Take 1 tablet by mouth once daily for 5 days. 5 tablet 2 09/07/2024 09/12/2024 Active Start: 06-14-2024 End: 06-15-2024 take 2 tablets by mouth twice daily valACYclovir (VALTREX) 1 gram tablet Take 2 tablets by mouth two times a day for 1 day. 4 tablet 2 06/14/2024 06/15/2024 Active Completed/Discontinued Medications Medication Drug Class(es) Dates Sig (Normalized) Sig (Original) acetaminophen 325 mg / HYDROcodone bitartrate 5 mg oral tablet (5 sources) Opioid Agonist Start: 06-17-2020 End: 06-19-2020 Hydrocodone-Acetamin ophen 1 TABLET tablet Discontinued 1 {tbl} PO EVERY 4 HOURS NEEDED as needed for Pain 10 2 0 June 17, 2020 June 18, 2020 12:00am June 19, 2020 12:02am Peritonsillar abscess Peritonsillar abscess Start: 06-17-2020 End: 06-19-2020 take 1 tablet by mouth every four hours as needed Hydrocodone-Acetaminophen Discontinued 1 TABLET PO EVERY 4 HOURS NEEDED 10 June 17, 2020 June 19, 2020 12:02am Arm Brace (WRIST BRACE) misc (5 sources) Start: 04-07-2024 End: 04-29-2024 Arm Brace (WRIST BRACE) misc 2 Units as needed. Bilateral wrist splints to wear at night. 2 Each 0 04/07/2024 04/29/2024 Discontinued Start: 04-07-2024 Arm Brace (WRI ST BRACE) misc 2 Units as needed. Bilateral wrist splints to wear at night. 2 Each 0 04/07/2024 Active aspirin 81 mg delayed release oral tablet (20 sources) Platelet Aggregation Inhibitor, Nonsteroidal Anti-inflammatory Drug Start: 05-03-2024 End: 05-10-2024 take 1 tablet by mouth once daily Aspirin 81 mg tablet,delayed release (DR/EC) Discontinued 81 mg PO DAILY May 03, 2024 12:00am May 10, 2024 8:11am Start: 03-03-2024 End: 05-11-2024 take 2 tablets by mouth once daily aspirin, enteric coated (ECOTRIN LOW STRENGTH) 81 mg EC tablet Take 2 tablets by mouth once daily. 60 tablet 3 03/03/2024 05/11/2024 Discontinued Start: 11-17-2023 End: 03-01-2024 take 2 tablets by mouth once daily aspirin, enteric coated (ECOTRIN LOW STRENGTH) 81 mg EC tablet Take 2 tablets by mouth once daily. 60 tablet 6 11/18/2023 03/01/2024 Discontinued Comment on above: Take 2 tablets by mo uth once daily. cephalexin 500 mg oral capsule (7 sources) Cephalosporin Antibacterial Start: 3 End: 4 take 1 capsule by mouth every twelve hours Cephalexin 500 mg capsule Discontinued 500 mg PO EVERY 12 HOURS 14 0 March 12, 2023 12:00am March 23, 2024 4:48pm Start: 12-05-2017 End: 06-03-2018 take 1 capsule by mouth every six hours Cephalexin 500 MG capsule Discontinued 500 mg PO EVERY 6 HOURS 40 0 December 05, 2017 1:00am June 03, 2018 2:48pm clindamycin 150 mg oral capsule (18 sources) Lincosamide Antibacterial Start: 08-01-2023 End: 03-23-2024 take 1 capsule by mouth three times daily Clindamycin Hcl 150 mg capsule Discontinued 150 mg PO THREE TIMES A DAY 21 0 August 01, 2023 12:00am March 23, 2024 4:48pm Start: 06-23-2022 End: 06-30-2022 take 2 capsules by mouth three times daily clindamycin (CLEOCIN) 150 mg capsule Indications: Toothache Take 2 capsules by mouth three times daily for 7 days. 42 capsule 0 06/23/2022 06/30/2022 Active Start: 12-23-2019 End: 01-05-2020 take 2 capsules by mouth three times daily Clindamycin Hcl 150 MG capsule Discontinued 300 mg PO THREE TIMES A DAY January 04, 2020 3:10pm January 05, 2020 11:49am strep Start: 12-23-2019 End: 01-05-2020 take 300 mg by mouth three times daily Clindamycin Hcl Discontinued 300 MG PO THREE TIMES A DAY January 04, 2020 3:10pm January 05, 2020 11:49am Start: 11-13-2019 End: 11-23-2019 take 2 capsules by mouth four times daily Clindamycin Hcl 150 MG capsule Discontinued 300 mg PO 4 TIMES DAILY 80 10 0 November 13, 2019 1:00am November 22, 2019 1:00am November 23, 2019 1:08am Start: 11-13-2019 End: 11-23-2019 take 300 mg by mouth four times daily Clindamycin Hcl Discontinued 300 MG PO 4 TIMES DAILY 80 10 November 13, 2019 1:00am November 23, 2019 1:08am Comment on above: Take 2 capsules by out three times daily for 7 days. docusate sodium 100 mg oral capsule (15 sources) Start: 4 End: 4 take 1 capsule by mouth twice daily docusate sodium (COLACE) 100 mg capsule Take 1 capsule by mouth two times a day. 60 capsule 1 04/12/2024 06/24/2024 Discontinued etonogestrel 68 mg drug implant (20 sources) Progestin Start: 4 End: 5 etonogestrel (NEXPLANON) 68 mg impl subdermal implant 68 mg by SUBDERMAL route one time only. 05/08/2024 05/08/2025 Discontinued Start: 08-19-2019 End: 06-24-2024 etonogestrel (NEXPLANON) sub dermal implant 68 mg Indications: Insertion of implantable subdermal contraceptive 1 Each by SUBDERMAL route as directed. 1 Each 0 08/19/2019 12/26/2022 Discontinued (Course of therapy completed) Start: 01-13-2017 inject 1 dose by sub cutaneous injection once Nexplanon Dose : 68 mg =, Subcutaneous, Once Start Date: 01/13/17 Status: Ordered Comment on above: 1 Each by SUBDERMAL route as directed. hydrocortisone 25 mg/ml topical cream (1 source) Corticosteroid Start: End: Hydrocortisone (Proctosol Hc) 2.5 % cream with perineal applicator Discontinued 1 NMA RC AT BEDTIME as needed for hemorrhoids 30 0 March 23, 2024 12:00am May 06, 2024 3:49pm hydrOXYzine pamoate 25 mg oral capsule (17 sources) Antihistamine Start: take 1 capsule by mouth every eight hours as needed hydrOXYzine pamoate (VISTARIL) 25 mg capsule Take 1 capsule by mouth three times daily as needed. 0 02/05/2021 Active Comment on above: Take 1 capsule by [facility] three times daily as needed. labetalol hydrochloride 200 mg oral tablet (9 sources) beta-Adrenergic Ruben Start: End: take 1 tablet by mouth twice daily labetalol (TRANDATE) 200 mg tablet Take 1 tablet by mouth two times a day. 60 tablet 1 05/16/2024 06/24/2024 Discontinued lactobacillus acidophilus 460 mg oral capsule (7 sources) Start: End: take 1 capsule by mouth once daily FLORAJEN ACIDOPHILUS 20 billion cell cap TAKE ONE CAPSULE BY MOUTH EVERY DAY 30 capsule 0 08/01/2022 12/26/2022 Discontinued Comment on above: Take 1 capsule by [facility] once daily. TAKE ONE CAPSULE BY MOUTH EVERY DAY miconazole nitrate 20 mg/ml vaginal cream (11 sources) Azole Antifungal Start: End: miconazole (MONISTAT 7) 2 % vaginal cream Use 1 Applicator vaginally daily at bedtime. 45 g 0 01/05/2024 03/16/2024 Discontinued (Course of therapy completed) Start: 12-25-2023 End: 01-01-2024 miconazole (MONISTAT 7) 2 % vaginal cream Use 1 Applicator vaginally daily at bedtime for 7 days. 45 g 0 12/25/2023 01/01/2024 Active Comment on above: Use 1 Applicator vag inally daily at bedtime for 7 days. Use 1 Applicator vag inally daily at bedtime. mineral oil/hydrophil petrolatum (AQUAPHOR) oint (12 sources) Start: 02-06-2022 End: 12-26-2022 mineral oil/hydrophil petrolatum (AQUAPHOR) oint Apply to affected area as needed. 452 g 0 02/06/2022 12/26/2022 Discontinued Start: 02-06-2022 mineral oil/hy drophil petrolatum (AQUAPHOR) oint Apply to affected area as needed. 452 g 0 02/06/2022 Active Comment on above: Apply to affected ar ea as needed. 24 hr nicotine 0.292 mg/hr transdermal system (19 sources) Cholinergic Nicotinic Agonist Start: End: nicotine (NICODERM) 7 mg/24 hr Apply 1 Patch as directed every 24 hours. 30 Patch 0 11/17/2023 03/16/2024 Discontinued (Course of therapy completed) Comment on above: Apply 1 Patch as dir ected every 24 hours. ondansetron 4 mg disintegrating oral tablet (2 sources) Serotonin-3 Receptor Antagonist Start: End: take 1 tablet by mouth every eight hours as needed for nausea Ondansetron 4 mg tablet,disintegrating Discontinued 4 mg PO EVERY 8 HOURS NEEDED as needed for Nausea 14 0 March 12, 2023 12:00am May 06, 2024 3:49pm phenazopyridine hydrochloride 200 mg oral tablet (3 sources) Start: End: take 1 tablet by mouth three times daily Phenazopyridine (Pyridium) 200 mg tablet Discontinued 200 mg PO THREE TIMES A DAY 6 2 0 January 16, 2023 12:00am May 06, 2024 3:50pm polyethylene glycol 3350 43811 mg powder for oral solution (17 sources) Osmotic Laxative Start: End: polyethylene glycol 3350 (MIRALAX) 17 gram packet Take 1 Packet by mouth once daily. Dissolve dose in 4 - 8 ounces of liquid and take as directed. As needed for constipation. 10 Each 1 04/12/2024 08/29/2024 Discontinued predniSONE 10 mg oral tablet (4 sources) Start: End: predniSONE (DELTASONE) 10 mg tablet Take 4 tabs daily for 3 days, then 2 tabs daily for 3 days, then 1 tab daily for 3 days with food. 21 tablet 0 02/06/2022 06/23/2022 Discontinued Comment on above: Take 4 tabs daily fo r 3 days, then 2 tabs daily for 3 days, then 1 tab daily for 3 days with food. vit/iron fum/folic ac (-FOLIC ACID ORAL) (20 sources) End: take 1 tablet by mouth once daily before mealtime vit/iron fum/folic ac (-FOLIC ACID ORAL) Take 1 tablet by mouth once daily. 08/29/2024 Discontinued take 1 tablet by alicia th once daily before mealtime vit/iron fum/folic ac (-FOLIC ACID ORAL) Take 1 tablet by mouth once daily. Active take 1 tablet by alicia th once daily before mealtime vit/iron fum/folic ac (-FOLIC ACID ORAL) Take 1 tablet by mouth once daily. 0 Active Comment on above: Take 1 tablet by alicia th once daily. sulfamethoxazole 800 mg / trimethoprim 160 mg oral tablet (3 sources) Dihydrofolate Reductase Inhibitor Antibacterial, Sulfonamide Antimicrobial Start: 023 End: 024 Sulfamethoxazole-Tr imethoprim (Bactrim Ds) 800-160 mg tablet Discontinued 1 {tbl} PO TWICE A DAY 14 7 0 January 16, 2023 12:00am March 23, 2024 4:49pm traZODone hydrochloride 100 mg oral tablet (1 source) Serotonin Reuptake Inhibitor End: 022 take 1 tablet by mouth once daily at bedtime traZODone (DESYREL) 100 mg tablet Take 100 mg by mouth daily at bedtime. 0 01/13/2022 Discontinued Comment on above: Take 100 mg by mouth daily at bedtime. Problems Active Problems Problem Classification Problem Date Documented Da te Episodic/Chronic Abdominal pain (2 sources) Female genital organ symptoms; Translations: [Pelvic and perineal pain] Onset: 07-22-2024 Episodic Acute and chronic tonsillitis (1 source) Swelling of tonsil; Translations: [Hypertrophy of tonsils] Chronic Acute and chronic tonsillitis (15 sources) Cellulitis of head; Translations: [Peritonsillar abscess] 01-27-2020 Episodic Acute posthemorrhagic anemia (1 source) Acute posthemorrhagic anemia; Translations: [Acute posthemorrhagic anemia] 05-11-2024 Episodic Attention-deficit, conduct, and disruptive behavior disorders (20 sources) Attention deficit hyperactivity disorder; Translations: [Attention-deficit hyperactivity disorder, unspecified type] Onset: 4 06-02-2014 Chronic Diabetes or abnormal glucose tolerance complicating ; childbirth; or the puerperium (1 source) Impaired glucose tolerance in ; Translations: [Abnormal glucose complicating ] 03-17-2024 Episodic Diseases of mouth; excluding dental (1 source) Aphthous ulcer of mouth; Translations: [Recurrent oral aphthae] Episodic Disorders of teeth and jaw (2 sources) Toothache; Translations: [Other specified disorders of teeth and supporting structures] Episodic Early or threatened labor (1 source) Irregular uterine contractions; Translations: [False labor, unspecified] 04-01-2024 Episodic Esophageal disorders (20 sources) Gastroesophageal reflux disease without esophagitis; Translations: [Gastro-esophageal reflux disease without esophagitis] Onset: 4 03-16-2024 Chronic Genitourinary symptoms and ill-defined conditions (2 sources) Dysuria; Translations: [Dysuria] Episodic Hemorrhoids (1 source) Bleeding external hemorrhoids; Translations: [Residual hemorrhoidal skin tags] 03-31-2024 Episodic Menstrual disorders (2 sources) Break-through bleeding; Translations: [Excessive and frequent menstruation with irregular cycle] Onset: 5 10-25-2024 Chronic Mood disorders (20 sources) Bipolar disorder; Translations: [Bipolar disorder, unspecified] Onset: 8 01-11-2021 Chronic Mycoses (1 source) Candidiasis of vagina; Translations: [Vaginal yeast infection] 12-04-2024 Episodic Nausea and vomiting (5 sources) Nausea; Translations: [Nausea] Onset: 5 05-08-2025 Episodic OB-related trauma to perineum and vulva (1 source) Second degree perineal laceration; Translations: [Second degree perineal laceration during delivery] 05-11-2024 Episodic Other circulatory disease (1 source) Elevated blood-pressure reading without diagnosis of hypertension; Translations: [Elevated blood-pressure reading, without diagnosis of hypertension] 04-19-2024 Episodic Other complications of ; puerperium affecting management of mother (1 source) Deliveries by vacuum extractor; Translations: [Complication of labor and delivery, unspecified] 05-11-2024 Episodic Other complications of ; puerperium affecting management of mother (1 source) Complication occurring during labor and delivery; Translations: [Maternal exhaustion complicating labor and delivery] 05-11-2024 Episodic Other complications of ; puerperium affecting management of mother (1 source) hemorrhage; Translations: [Other immediate hemorrhage] 05-11-2024 Episodic Other complications of ; puerperium affecting management of mother (1 source) Atonic hemorrhage; Translations: [Other immediate hemorrhage] 05-11-2024 Episodic Other complications of (20 sources) Nausea and vomiting; Translations: [Vomiting of , unspecified] Onset: 4 Resolved: 4 10-22-2023 Episodic Other complications of (1 source) Reduced movement; Translations: [Decreased movements, third trimester, not applicable or unspecified] 04-29-2024 Episodic Other connective tissue disease (2 sources) Swelling of hand; Translations: [Other specified soft tissue disorders] Episodic Other female genital disorders (3 sources) Pruritus of vagina; Translations: [Other specified noninflammatory disorders of vagina] 02-02-2024 Episodic Other female genital disorders (4 sources) Vaginal discharge; Translations: [Other specified noninflammatory disorders of vagina] 07-22-2024 Episodic Other female genital disorders (2 sources) Other specified noninflammatory disorders of vagina; Translations: [Vaginal discharge] Onset: Episodic Other gastrointestinal disorders (2 sources) Diarrhea; Translations: [Diarrhea, unspecified] 11-18-2024 Episodic Other gastrointestinal disorders (1 source) Diarrhea, unspecified; Translations: [Diarrhea, unspecified type] Onset: 5 Episodic Other infections; including parasitic (2 sources) Infestation by Sarcoptes scabiei conrad hominis; Translations: [Scabies] Onset: 3 Episodic Other infections; including parasitic (1 source) Infection by Trichomonas; Translations: [Trichomoniasis, unspecified] 09-27-2024 Episodic Other inflammatory condition of skin (1 source) Pruritus of vulva; Translations: [Pruritus vulvae] 02-22-2025 Episodic Other liver diseases (5 sources) Elevated total bilirubin; Translations: [Unspecified jaundice] 01-04-2020 Episodic Other skin disorders (1 source) Eruption; Translations: [Rash and other nonspecific skin eruption] Episodic Other upper respiratory disease (1 source) Pain in throat; Translations: [Pain in throat] Episodic Otitis media and related conditions (3 sources) Dysfunction of bilateral eustachian tubes; Translations: [Unspecified Eustachian tube disorder, bilateral] 04-29-2024 Episodic Residual codes; unclassified (2 sources) Gestation period, 12 weeks; Translations: [12 weeks gestation of ] 11-17-2023 Episodic Residual codes; unclassified (1 source) Gestation period, 13 weeks; Translations: [13 weeks gestation of ] 11-26-2023 Episodic Residual codes; unclassified (1 source) Gestation period, 19 weeks; Translations: [19 weeks gestation of ] 01-05-2024 Episodic Residual codes; unclassified (1 source) Gestation period, 23 weeks; Translations: [23 weeks gestation of ] 02-02-2024 Episodic Residual codes; unclassified (1 source) Gestation period, 25 weeks; Translations: [25 weeks gestation of ] 02-17-2024 Episodic Residual codes; unclassified (11 sources) Gestation period, 29 weeks; Translations: [29 weeks gestation of ] Onset: 4 03-16-2024 Episodic Residual codes; unclassified (3 sources) Gestation period, 31 weeks; Translations: [31 weeks gestation of ] 03-31-2024 Episodic Residual codes; unclassified (1 source) Gestation period, 33 weeks; Translations: [33 weeks gestation of ] 04-12-2024 Episodic Residual codes; unclassified (1 source) Gestation period, 34 weeks; Translations: [34 weeks gestation of ] 04-19-2024 Episodic Residual codes; unclassified (2 sources) Gestation period, 36 weeks; Translations: [36 weeks gestation of ] 04-29-2024 Episodic Residual codes; unclassified (2 sources) Gestation period, 37 weeks; Translations: [37 weeks gestation of ] 05-06-2024 Episodic Residual codes; unclassified (1 source) Intolerant of heat; Translations: [Other general symptoms and signs] 05-08-2025 Episodic Sexually transmitted infections (not HIV or hepatitis) (5 sources) Gonorrhea; Translations: [Gonococcal infection, unspecified] 12-24-2019 Episodic Substance-related disorders (20 sources) History of drug abuse; Translations: [Other psychoactive substance abuse, in remission] Onset: 1 Resolved: 4 01-11-2021 Chronic Thyroid disorders (8 sources) Acquired hypothyroidism; Translations: [Hypothyroidism, unspecified] Onset: 5 11-22-2024 Chronic Unclassified (20 sources) [facility] Education - COMMON Onset: 4 10-22-2023 Unclassified (20 sources) Education - [place] Onset: 4 10-22-2023 Urinary tract infections (19 sources) Urinary tract infectious disease; Translations: [Urinary tract infection, site not specified] 01-16-2023 Episodic Viral infection (3 sources) Recurrent genital herpes simplex; Translations: [Herpesviral infection of urogenital system, unspecified] Onset: 01-12-2025 Chronic Past or Other Problems Problem Classification Problem Date Documented Date Episodic/Chronic Administrative/social admission (4 sources) Worried well; Translations: [Person with feared health complaint in whom no diagnosis is made] Onset: 04-24-2025 Episodic Allergic reactions (20 sources) Inflammatory dermatosis; Translations: [Dermatitis, unspecified] Onset: 10-22-2023 Resolved: 06-24-2024 Episodic Anxiety disorders (20 sources) Mixed anxiety and depressive disorder; Translations: [Other specified anxiety disorders] Onset: 10-22-2023 Resolved: 06-24-2024 01-16-2023 Chronic Asthma (20 sources) Asthma; Translations: [Unspecified asthma, uncomplicated] Onset: 10-22-2023 Resolved: 06-24-2024 03-30-2017 Chronic Contraceptive and procreative management (11 sources) Subcutaneous contraceptive implant present; Translations: [Encounter for surveillance of implantable subdermal contraceptive] Onset: 10-25-2024 Episodic Diabetes mellitus without complication (20 sources) Abnormal glucose tolerance test; Translations: [Other abnormal glucose] Onset: 03-17-2024 Resolved: 06-24-2024 03-17-2024 Episodic Hepatitis (20 sources) Acute hepatitis; Translations: [Acute viral hepatitis, unspecified] Onset: 01-11-2021 01-11-2021 Episodic Hypertension complicating ; childbirth and the puerperium (20 sources) Pre-eclampsia; Translations: [Unspecified pre-eclampsia, third trimester] Onset: 05-11-2024 Resolved: 06-24-2024 05-11-2024 Episodic Immunizations and screening for infectious disease (13 sources) Exposure to sexually transmissible disorder; Translations: [Contact with and (suspected) exposure to infections with a predominantly sexual mode of transmission] Onset: 08-29-2024 Episodic Malaise and fatigue (2 sources) Fatigue; Translations: [Other fatigue] Onset: 05-08-2025 05-08-2025 Episodic Other circulatory disease (20 sources) Elevated blood pressure; Translations: [Elevated blood-pressure reading, without diagnosis of hypertension] Onset: 05-11-2024 Resolved: 06-24-2024 05-11-2024 Episodic Other complications of (20 sources) Anemia of ; Translations: [Anemia complicating , third trimester] Onset: 03-17-2024 Resolved: 06-24-2024 03-17-2024 Chronic Other complications of (20 sources) Maternal tobacco use; Translations: [Smoking (tobacco) complicating , first trimester] Onset: 10-22-2023 Resolved: 06-24-2024 10-22-2023 Episodic Other complications of (20 sources) RhD negative; Translations: [Other specified related conditions, unspecified trimester] Onset: 11-04-2023 Resolved: 06-24-2024 11-04-2023 Episodic Other complications of (20 sources) High risk ; Translations: [Supervision of high risk , unspecified, second trimester] Onset: 03-16-2024 Resolved: 06-24-2024 11-26-2023 Episodic Other complications of (20 sources) Excessive growth affecting management of mother; Translations: [Maternal care for excessive growth, third trimester, not applicable or unspecified] Onset: 04-04-2024 Resolved: 06-24-2024 04-04-2024 Episodic Other complications of (20 sources) Vomiting of , unspecified; Translations: [Unspecified vomiting of , unspecified as to episode of care or not applicable] Onset: 10-22-2023 Resolved: 01-05-2024 01-05-2024 Episodic Other infections; including parasitic (20 sources) H/O: infectious disease; Translations: [Personal history of other infectious and parasitic diseases] Onset: 10-22-2023 10-22-2023 Episodic Other inflammatory condition of skin (1 source) Pruritus vulvae; Translations: [Vulvar pruritus] Onset: 02-22-2025 Episodic Other and delivery including normal (20 sources) Normal ; Translations: [Encounter for supervision of normal first , first trimester] Onset: 10-22-2023 Resolved: 01-05-2024 11-17-2023 Episodic Other screening for suspected conditions (not mental disorders or infectious disease) (10 sources) Cancer cervix screening status; Translations: [Encounter for screening for malignant neoplasm of cervix] Onset: 12-30-2024 Episodic Other upper respiratory infections (19 sources) Sore throat symptom; Translations: [Acute pharyngitis, unspecified] Onset: 04-20-2025 Episodic Residual codes; unclassified (20 sources) Gestation period, 8 weeks; Translations: [8 weeks gestation of ] Onset: 10-22-2023 10-22-2023 Episodic Residual codes; unclassified (1 source) Other general symptoms and signs; Translations: [Heat intolerance] Onset: 05-08-2025 Episodic Screening and history of mental health and substance abuse codes (20 sources) Ex-tobacco user; Translations: [Personal history of nicotine dependence] Onset: 10-22-2023 Resolved: 06-24-2024 01-16-2023 Episodic Substance-related disorders (20 sources) Drug-induced delirium; Translations: [Other psychoactive substance use, unspecified with intoxication with delirium] Onset: 10-22-2023 Resolved: 06-24-2024 04-01-2019 Episodic Viral infection (20 sources) Recurrent herpes simplex labialis; Translations: [Herpesviral vesicular dermatitis] Onset: 10-22-2023 01-29-2020 Episodic Results Test Name Value Interpretation Reference Range Facility CBC W/Diff, Automatedon 08-12 Absolute Lymph 1.36 X10 3/uL Normal 0.83-4.51 [facility] Comment on above: Performed By: #### L 100.0100, L501.38322, L501.2450, L506.0400, L501.9520, L500.4050 #### [facility] [address] [place], [address] Absolute Neut 8.9 X10 3/uL High 2.0-7.7 [facility] Comment on above: Performed By: #### L 100.0100, L501.69504, L501.2450, L506.0400, L501.9520, L500.4050 #### [facility] [address] [place], [address] Basophils/100 WBC (Bld) 0.3 % Normal 0-1 [facility] Comment on above: Performed By: #### L 100.0100, L501.12762, L501.2450, L506.0400, L501.9520, L500.4050 #### [facility] [address] [place], [address] Eosinophils/100 WBC (Bld) 0.0 % Normal 0-5 [facility] Comment on above: Performed By: #### L 100.0100, L501.04437, L501.2450, L506.0400, L501.9520, L500.4050 #### [facility] [address] [place], [address] Erythrocyte distribution width (RBC) [Ratio] 13.3 % Normal 11.6-14.6 [facility] Comment on above: Performed By: #### L 100.0100, L501.29239, L501.2450, L506.0400, L501.9520, L500.4050 #### [facility] [address] [place], [address] Hematocrit (Bld) [Volume fraction] 40.2 % Normal 37-47 [facility] Comment on above: Performed By: #### L 100.0100, L501.69198, L501.2450, L506.0400, L501.9520, L500.4050 #### [facility] [address] [place], [address] Hemoglobin (Bld) [Mass/Vol] 13.2 g/dL Normal 12.0-15.0 [facility] Comment on above: Performed By: #### L 100.0100, L501.78806, L501.2450, L506.0400, L501.9520, L500.4050 #### [facility] [address] [place], [address] IG% 0.400 Normal 0.0-0.9 [facility] Comment on above: Result Comment: IG% - Immature Granulocytes (promyelocytes, myelocytes and metamyelocytes) > 1% indicates that a LEFT SHIFT is Present. Performed By: #### L 100.0100, L501.16483, L501.2450, L506.0400, L501.9520, L500.4050 #### [facility] [address] [place], [address] Lymphocytes/100 WBC (Bld) 12.6 % Low 19-41 [facility] Comment on above: Performed By: #### L 100.0100, L501.36721, L501.2450, L506.0400, L501.9520, L500.4050 #### [facility] [address] [place], [address] MCH (RBC) [Entitic mass] 29.6 pg Normal 27.0-32.0 [facility] Comment on above: Performed By: #### L 100.0100, L501.47250, L501.2450, L506.0400, L501.9520, L500.4050 #### [facility] [address] [place], [address] MCHC (RBC) [Mass/Vol] 32.8 g/dL Normal 32-36 [facility] Comment on above: Performed By: #### L 100.0100, L501.80398, L501.2450, L506.0400, L501.9520, L500.4050 #### [facility] [address] [place], [address] MCV (RBC) [Entitic vol] 90.1 fL Normal 81-99 [facility] Comment on above: Performed By: #### L 100.0100, L501.85899, L501.2450, L506.0400, L501.9520, L500.4050 #### [facility] [address] [place], [address] Monocytes/100 WBC (Bld) 4.5 % Normal 0-10 [facility] Comment on above: Performed By: #### L 100.0100, L501.41094, L501.2450, L506.0400, L501.9520, L500.4050 #### [facility] [address] [place], [address] Neutrophils/100 WBC (Bld) 82.2 % High 47-70 [facility] Comment on above: Performed By: #### L 100.0100, L501.55475, L501.2450, L506.0400, L501.9520, L500.4050 #### [facility] [address] [place], [address] Nucleated RBC (Bld) [#/Vol] 0 10*3/uL Normal 0-5 [facility] Comment on above: Performed By: #### L 100.0100, L501.66692, L501.2450, L506.0400, L501.9520, L500.4050 #### [facility] [address] [place], [address] Platelet mean volume (Bld) [Entitic vol] 10.9 fL Normal 6.2-12.0 [facility] Comment on above: Performed By: #### L 100.0100, L501.07371, L501.2450, L506.0400, L501.9520, L500.4050 #### [facility] [address] [place], [address] Platelets (Bld) [#/Vol] 277 10*3/uL Normal 150-450 [facility] Comment on above: Performed By: #### L 100.0100, L501.21117, L501.2450, L506.0400, L501.9520, L500.4050 #### [facility] [address] [place], [address] RBC (Bld) [#/Vol] 4.46 10*6/uL Normal 4.2-5.4 [facility] Comment on above: Performed By: #### L 100.0100, L501.87268, L501.2450, L506.0400, L501.9520, L500.4050 #### [facility] [address] [place], [address] RDW SD 43.9 fl Normal 35.1-43.9 [facility] Comment on above: Performed By: #### L 100.0100, L501.65845, L501.2450, L506.0400, L501.9520, L500.4050 #### [facility] [address] [place], [address] WBC (Bld) [#/Vol] 10.8 10*3/uL Normal 4.4-11.0 [facility] Comment on above: Performed By: #### L 100.0100, L501.68792, L501.2450, L506.0400, L501.9520, L500.4050 #### [facility] [address] [place], [address] Chest PA and Lateralon 08-22 Chest PA and Lateral [facility] Services [address] [place] [address] Chest PA and Lateral MR#: [id number] Acct: [id number] Name: [place] Rep #: [id number] : 2000 F 24 From: Dagoberto hogue MD PCP: Dr. Elsa Bro MD Status: REG ER Study: Chest PA and Lateral Date of Exam: 08/22/25 Exam# [id number] Ordering Dr: Sudhir Marcus DO PROCEDURE: CHEST PA AND LATERAL 08/22/2025 REASON FOR EXAM: CHEST PAIN TECHNIQUE: Procedure Code: RADCXR Modality: DX Procedure: CHEST PA AND LATERAL COMPARISON: August 23, 2020. FINDINGS: Hardware: None Heart: The heart size is normal. Mediastinum: The mediastinal contour is unremarkable. Lungs: The lungs are clear. Bones: The bones are unremarkable. RAD/Chest PA and Lateral IMPRESSION: NEGATIVE CHEST Reading Location: [id number] CC: Dr. Elsa Bro MD; Dr. Sudhir Marcus DO Security Door Installer: Signed Normal [facility] Comprehensive Metabolic Prof ilon 08-22-2025 Albumin [Mass/Vol] 4.6 g/dL Normal 3.5-5.0 [facility] Comment on above: Performed By: #### L 100.0100, L501.43171, L501.2450, L506.0400, L501.9520, L500.4050 #### [facility] [address] [place], [address] Albumin/Globulin [Mass ratio] 1.7 {ratio} Normal 0.9-2.4 [facility] Comment on above: Performed By: #### L 100.0100, L501.77288, L501.2450, L506.0400, L501.9520, L500.4050 #### [facility] [address] [place], [address] ALK PHOS 73 U/L Normal 35-104 [facility] Comment on above: Performed By: #### L 100.0100, L501.08182, L501.2450, L506.0400, L501.9520, L500.4050 #### [facility] [address] [place], [address] ALT [Catalytic activity/Vol] 29 U/L Normal <=34 [facility] Comment on above: Performed By: #### L 100.0100, L501.09486, L501.2450, L506.0400, L501.9520, L500.4050 #### [facility] [address] [place], [address] AST [Catalytic activity/Vol] 24 U/L Normal <=31 [facility] Comment on above: Performed By: #### L 100.0100, L501.19107, L501.2450, L506.0400, L501.9520, L500.4050 #### [facility] [address] [place], [address] Bilirubin [Mass/Vol] 1.09 mg/dL Normal 0.00-1.30 [facility] Comment on above: Performed By: #### L 100.0100, L501.01507, L501.2450, L506.0400, L501.9520, L500.4050 #### [facility] [address] [place], [address] BUN/CRE 18.4 RATIO Normal 10-20 [facility] Comment on above: Performed By: #### L 100.0100, L501.31168, L501.2450, L506.0400, L501.9520, L500.4050 #### [facility] [address] [place], [address] Calcium [Mass/Vol] 9.4 mg/dL Normal 7.6-11.0 [facility] Comment on above: Performed By: #### L 100.0100, L501.43500, L501.2450, L506.0400, L501.9520, L500.4050 #### [facility] [address] [place], [address] Chloride [Moles/Vol] 96 mmol/L Low 98-108 [facility] Comment on above: Performed By: #### L 100.0100, L501.65879, L501.2450, L506.0400, L501.9520, L500.4050 #### [facility] [address] [place], [address] CO2 [Moles/Vol] 26.8 mmol/L Normal 21.0-32.0 [facility] Comment on above: Performed By: #### L 100.0100, L501.19410, L501.2450, L506.0400, L501.9520, L500.4050 #### [facility] [address] [place], [address] Creatinine [Mass/Vol] 0.66 mg/dL Low 0.70-1.20 [facility] Comment on above: Performed By: #### L 100.0100, L501.03922, L501.2450, L506.0400, L501.9520, L500.4050 #### [facility] [address] [place], [address] ECRCL 142.07 ml/min Normal 50-250 [facility] Comment on above: Performed By: #### L 100.0100, L501.07159, L501.2450, L506.0400, L501.9520, L500.4050 #### [facility] [address] [place], [address] GAP 13 Normal 5-15 [facility] Comment on above: Performed By: #### L 100.0100, L501.15498, L501.2450, L506.0400, L501.9520, L500.4050 #### [facility] [address] [place], [address] GFR/1.73 sq M.predicted among non-blacks MDRD (S/P/Bld) [Vol rate/Area] 124 mL/min/{1.73_m2} Normal >60 [facility] Comment on above: Result Comment: mL/m in/1.73m2 CKD-EPI Creatinine Equation (2020) Performed By: #### L 100.0100, L501.53559, L501.2450, L506.0400, L501.9520, L500.4050 #### [facility] [address] [place], [address] Globulin (S) [Mass/Vol] 2.8 g/dL Normal 2.2-4.2 [facility] Comment on above: Performed By: #### L 100.0100, L501.02163, L501.2450, L506.0400, L501.9520, L500.4050 #### [facility] [address] [place], [address] Glucose [Mass/Vol] 111 mg/dL High 70-99 [facility] Comment on above: Performed By: #### L 100.0100, L501.58216, L501.2450, L506.0400, L501.9520, L500.4050 #### [facility] [address] [place], [address] Potassium [Moles/Vol] 3.1 mmol/L Low 3.3-5.1 [facility] Comment on above: Performed By: #### L 100.0100, L501.90750, L501.2450, L506.0400, L501.9520, L500.4050 #### [facility] [address] [place], [address] Sodium [Moles/Vol] 135 mmol/L Normal 133-145 [facility] Comment on above: Performed By: #### L 100.0100, L501.63690, L501.2450, L506.0400, L501.9520, L500.4050 #### [facility] [address] [place], [address] T PROT 7.3 g/dL Normal 5.9-8.4 [facility] Comment on above: Performed By: #### L 100.0100, L501.83623, L501.2450, L506.0400, L501.9520, L500.4050 #### [facility] Laboratory [address] [place], [address] Urea nitrogen [Mass/Vol] 12 mg/dL Normal 4-19 [facility] Comment on above: Performed By: #### L 100.0100, L501.35125, L501.2450, L506.0400, L501.9520, L500.4050 #### [facility] Laboratory [address] [place], [address] Emergency Department Summary on 08-22-2025 Emergency Department Summary [facility] Medical Records Department [address] [facility] [place] [address] Emergency Department Summary 08/22/25 MR#: [id number] Acct: [id number] Name: [place] Rep #: [id number] : 2000 24 From: Sudhir Marcus DO PCP: Dr. Elsa Bro MD Status:REG ER Location: ED HPI History of Present Illness Chief Complaint: Nausea/Vomiting Narrative Narrative: Patient is a 24-year-old female past medical history of of PTSD, anxiety, depression, preeclampsia, asthma, marijuana use who presents to the emergency department with a chief complaint of nausea vomiting. Patient states that she had been having diarrhea for significant time and states that she was tired of this therefore she states that she made a doctor's appointment and had 1 scheduled on Thursday she states that she woke up that morning and had vomiting. States that she went to the appointment anyhow and notes that she was sent here to the emergency department to be evaluated and she states that she had a workup here including a CT scan. States that she was ultimately sent home. States that she is still having persistent vomiting and feeling terrible prompting her to come back. Patient did note that she did vomit some blood recently as well and she noted that she had blood in her urine which is also concerning for her prompting her to return to the emergency department. Patient states that she recently gave up smoking marijuana as well [facility] Medical History Nexplanon insertion Acute blood loss anemia atony of uterus with hemorrhage Severe preeclampsia Trauma PTSD (post-traumatic stress disorder) Anxiety Depression Pre-eclampsia History of pneumonia History of substance abuse Asthma Home Medications ???Medication ???Instructions ???Recorded ???Last Taken ???Type vit no.95-ferrous 1 tab PO DAILY 03/23/24 Unknown Hi story fumarate 28 mg-folic acid 800 mcg tablet () azithromycin 250 mg tablet 250 mg PO .COMPLEX #12 tabs Unknown Rx pantoprazole 20 mg tablet,delayed 20 mg PO QDAY 05/03/24 Unknown Hi story release ferrous sulfate 325 mg (65 mg 325 mg PO QODAY 05/06/24 Unknown H istory iron) tablet (iron) ferrous sulfate 325 mg (65 mg 325 mg PO QODAY 60 days #30 tabs 0 05/10/24 Unknown Rx iron) tablet (FeroSul) ibuprofen 600 mg tablet 600 mg PO Q6H PRN Pain 20 days #60 05/10/24 Unknown Rx TABLETS labetalol 200 mg tablet 200 mg PO BID 10 days #20 tabs Unknown Rx acyclovir 200 mg capsule 200 mg PO TID 7 days #21 caps 08/12 11/05 Unknown Rx capsaicin 0.025 % topical cream 1 applic topical TID #50 grams 09/05 Unknown Rx metoclopramide HCl 10 mg tablet 10 mg PO Q6H PRN nausea and Unknown Rx (Reglan) vomiting #20 tabs potassium chloride 20 mEq oral 20 meq PO BID 5 days #10 ea Unknown Rx packet Allergy/AdvReac Type Severity Reaction Status Date / Time amoxicillin (Amoxicillin) Allergy NOT SURE, Verified 08/22/25 10:15 WAS A BABY lavender (Lavandula Allergy Rash Verified 08/22/25 10:15 angustifolia) Family History Mother Depression Substance abuse Brother Depression Grandfather Substance abuse Social History Smoking Status: Current every day smoker tobacco type: e-cigarettes Tobacco: How many years used: 4 alcohol intake: former year quit: 2016 substance use type: former substance user 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 use: 04/09/18 and methamphetamine what type of physical activity do you participate in: yoga, aerobics and weight training frequency: 1-2 times per week ROS ROS ED ROS Narrative Constitutional: Denies any fevers, chills, headaches Eyes: Denies changes double vision blurry vision Cardiovascular: Complains of chest pain Respiratory: Denies coughing wheezing shortness of breath Abdomen: Complains of nausea vomiting as noted above denies any abdominal pain : Complains of hematuria as noted above denies painful urination or increased frequency of urinating Neurological: Denies any numbness, weakness, tingling Musculoskeletal: Denies back pain Skin: Denies any rashes or lesions EXAM Physical Exam Narrative Exam Narrative: General: Patient was lying in bed resting comfortably did not appear to be acute distress Head: Atraumatic, normocephalic Eyes: PERRL bilaterally, EOMI bilaterally, no conjunctival injection noted Neck: Soft, supple, trachea midline Cardiovascular: Patient tachycardic with a regular rhythm Respiratory: Clear to auscultation bilaterally Abdomen: soft, nondistended, no tenderness to palpation Extremities: +5/5 strength noted in the bilateral lower extremities Neurological: Pa (more content not included)... Normal [facility] Free T3on 08-22-2025 Free T3 [Mass/Vol] 2.1 pg/mL Low 2.18-3.98 [facility] Comment on above: Performed By: #### L 100.0100, L501.40947, L501.2450, L506.0400, L501.9520, L500.4050 ####[facility] [address] [place], [address] Lipaseon 08-22-2025 Lipase [Catalytic activity/Vol] 19 U/L Normal 13-75 [facility] Comment on above: Result Comment: Margareth sandoval note: LIPASE revised reference range effective 23. New Lipase methodology. Expected to produce lower values than the previous assay method. NEW Reference Range: 13 - 75 U/L Performed By: #### L 100.0100, L501.98333, L501.2450, L506.0400, L501.9520, L500.4050 #### [facility] [address] [place], [address] T4 Free Directon 08-22-2025 T4 FREE DIRECT 1.00 ng/dL Normal 0.76-1.46 [facility] Comment on above: Performed By: #### L 100.0100, L501.96827, L501.2450, L506.0400, L501.9520, L500.4050 ####[facility] [address] [place], [address] Thyroid Stim Hormone (TSH)on 08-22-2025 TSH 1.780 uIU/mL Normal 0.300-4.200 [facility] Comment on above: Performed By: #### L 100.0100, L501.25434, L501.2450, L506.0400, L501.9520, L500.4050 ####[facility] [address] [place], [address] Urinalysis, Completeon 08-22 BACTERIA 1+ /hpf Normal None Seen [facility] Comment on above: Order Comment: CRITI ESA VALUE CALLED TO LEELA MCDONALD 08/22/25 [facility]2 Vidhya Pineda. RESULTS READ BACK BY SAME. CLEAN CATCH Performed By: #### L 400.0001 #### [facility] Laboratory [address] [place], [address] RBC 0-5 SEEN Normal 0-5 [facility] Comment on above: Order Comment: CRITI ESA VALUE CALLED TO LEELA MCDONALD 08/22/25 1102 Vidhya Pineda. RESULTS READ BACK BY SAME. CLEAN CATCH Performed By: #### L 400.0001 #### [facility] [address] [place], [address] WBC 0-5 SEEN Normal 0-5 [facility] Comment on above: Order Comment: CRITI ESA VALUE CALLED TO LEELA MCDONALD 08/22/25 1102 Vidhya Pineda. RESULTS READ BACK BY SAME. CLEAN CATCH Performed By: #### L 400.0001 #### [facility] [address] [place], [address] EPI,SQUAMOUS 0 SEEN Normal 5-10 [facility] Comment on above: Order Comment: CRITI EAS VALUE CALLED TO LEELA MCDONALD 08/22/25 1102 Vidhya Pineda. RESULTS READ BACK BY SAME. CLEAN CATCH Performed By: #### L 400.0001 #### [facility] [address] [place], [address] Mucus Ql (Urine sed) 0 SEEN Normal [facility] Comment on above: Order Comment: CRITI ESA VALUE CALLED TO LEELA [facility] 08/22/25 1102 Vidhya Pineda. RESULTS READ BACK BY SAME. CLEAN CATCH Performed By: #### L 400.0001 #### [facility] [address] [place], [address] Abdomen/Pelvis W IV Cont ONL Yon 08-18-2025 Abdomen/Pelvis W IV Cont ONLY [facility] Imaging Services [address] [place] [address] Abdomen/Pelvis W IV Cont ONLY MR#: [id number] Acct: [id number] Name: J[place] Rep #: [id number] : 2000 F 24 From: Gilmer Rodriguez MD PCP: Dr. Elsa Bro MD Status: REG ER Study: Abdomen/Pelvis W IV Cont ONLY Date of Exam: Exam# [id number] Ordering Dr: Ridge Perez DO PROCEDURE: ABDOMEN/PELVIS W IV CONT ONLY 08/18/2025 REASON FOR EXAM: ABDOMINAL PAIN AND VOMITING TECHNIQUE: Procedure Code: [id number] Modality: CT Procedure: ABDOMEN/PELVIS W IV CONT ONLY Coronal and Sagittal reconstruction series were provided. CONTRAST: Isovue 370 VOLUME: 80 mL One or more dose reduction techniques were used (e.g., Automated exposure control, adjustment of the mA and/or kV according to patient size, use of iterative reconstruction technique. RADIATION DOSE SUMMARY: CTDlvol: 13.46 mGy DLP: 661.81 mGycm COMPARISON: CT abdomen and pelvis 08/26/2020.. FINDINGS: Lung bases: Clear. Liver: Unremarkable. Gallbladder: Unremarkable. No biliary dilation. Spleen: Unremarkable. Pancreas: Unremarkable. Adrenals: Unremarkable. Kidneys: Multiple bilateral kidney stones with the largest measures 4 mm at the lower pole of the right kidney. No hydronephrosis. Bladder: Unremarkable. Reproductive Organs: Unremarkable Bowel: No bowel wall thickening. No bowel obstruction. Appendix: Partially visualized and unremarkable. Lymph nodes: No lymphadenopathy. Vasculature: No aneurysm. Peritoneum / Retroperitoneum: No free air or free fluid. Bones: No acute bony abnormalities. CT/Abdomen/Pelvis W IV Cont ONLY IMPRESSION: No acute abdominopelvic abnormalities. Reading Location: [facility] CC: Dr. Elsa Bro MD; Dr. 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, [address] Calcium [Mass/Vol] 10.4 mg/dL Normal 7.6-11.0 [facility] Comment on above: Performed By: #### L 500.3400, L700.6800, L500.2500, L505.5000, L100.0100, L501.2450 ####[facility] [address] [place], [address] Chloride [Moles/Vol] 105 mmol/L Normal 98-108 [facility] Comment on above: Performed By: #### L 500.3400, L700.6800, L500.2500, L505.5000, L100.0100, L501.2450 ####[facility] [address] [place], [place], [id number] CO2 [Moles/Vol] 20.4 mmol/L Low 21.0-32.0 [facility] Comment on above: Performed By: #### L 500.3400, L700.6800, L500.2500, L505.5000, L100.0100, L501.2450 ####[facility] [address] [place], [place], [address] Creatinine [Mass/Vol] 0.65 mg/dL Low 0.70-1.20 [facility] Comment on above: Performed By: #### L 500.3400, L700.6800, L500.2500, L505.5000, L100.0100, L501.2450 ####[facility] [address] [place], [place], [id number] ECRCL 145.14 ml/min Normal 50-250 [facility] Comment on above: Performed By: #### L 500.3400, L700.6800, L500.2500, L505.5000, L100.0100, L501.2450 ####[facility] [address] [place], [place], [id number] GAP 15 Normal 5-15 [facility] Comment on above: Performed By: #### L 500.3400, L700.6800, L500.2500, L505.5000, L100.0100, L501.2450 ####[facility] [address] [place], [place], [id number] GFR/1.73 sq M.predicted among non-blacks MDRD (S/P/Bld) [Vol rate/Area] 125 mL/min/{1.73_m2} Normal >60 [facility] Comment on above: Result Comment: mL/m in/1.73m2 CKD-EPI Creatinine Equation (2020) Performed By: #### L 500.3400, L700.6800, L500.2500, L505.5000, L100.0100, L501.2450 ####[facility] [address] [place], [address] Glucose [Mass/Vol] 152 mg/dL High 70-99 [facility] Comment on above: Performed By: #### L 500.3400, L700.6800, L500.2500, L505.5000, L100.0100, L501.2450 ####[facility] [address] [place], [address] Potassium [Moles/Vol] 3.5 mmol/L Normal 3.3-5.1 [facility] Comment on above: Performed By: #### L 500.3400, L700.6800, L500.2500, L505.5000, L100.0100, L501.2450 ####[facility] [address] [place], [address] Sodium [Moles/Vol] 140 mmol/L Normal 133-145 [facility] Comment on above: Performed By: #### L 500.3400, L700.6800, L500.2500, L505.5000, L100.0100, L501.2450 ####[facility] [address] [place], [address] Urea nitrogen [Mass/Vol] 10 mg/dL Normal 4-19 [facility] Comment on above: Performed By: #### L 500.3400, L700.6800, L500.2500, L505.5000, L100.0100, L501.2450 ####[facility] [address] [place], [address] CBC W/Diff, Automatedon 11-0 Absolute Lymph 2.09 X10 3/uL Normal 0.83-4.51 [facility] Comment on above: Performed By: #### L 500.3400, L700.6800, L500.2500, L505.5000, L100.0100, L501.2450 ####[facility] [address] [place], [address] Absolute Neut 13.9 X10 3/uL High 2.0-7.7 [facility] Comment on above: Performed By: #### L 500.3400, L700.6800, L500.2500, L505.5000, L100.0100, L501.2450 ####[facility] [address] [place], [address] Basophils/100 WBC (Bld) 0.4 % Normal 0-1 [facility] Comment on above: Performed By: #### L 500.3400, L700.6800, L500.2500, L505.5000, L100.0100, L501.2450 ####[facility] [address] [place], [address] Eosinophils/100 WBC (Bld) 0.6 % Normal 0-5 [facility] Comment on above: Performed By: #### L 500.3400, L700.6800, L500.2500, L505.5000, L100.0100, L501.2450 ####[facility] [address] [place], [address] Erythrocyte distribution width (RBC) [Ratio] 13.2 % Normal 11.6-14.6 [facility] Comment on above: Performed By: #### L 500.3400, L700.6800, L500.2500, L505.5000, L100.0100, L501.2450 ####[facility] [address] [place], [address] Hematocrit (Bld) [Volume fraction] 42.2 % Normal 37-47 [facility] Comment on above: Performed By: #### L 500.3400, L700.6800, L500.2500, L505.5000, L100.0100, L501.2450 ####[facility] [address] [place], [address] Hemoglobin (Bld) [Mass/Vol] 14.0 g/dL Normal 12.0-15.0 [facility] Comment on above: Performed By: #### L 500.3400, L700.6800, L500.2500, L505.5000, L100.0100, L501.2450 ####[facility] [address] [place], [address] IG% 0.600 Normal 0.0-0.9 [facility] Comment on above: Result Comment: IG% - Immature Granulocytes (promyelocytes, myelocytes and metamyelocytes) > 1% indicates that a LEFT SHIFT is Present. Performed By: #### L 500.3400, L700.6800, L500.2500, L505.5000, L100.0100, L501.2450 ####[facility] [address] [place], [address] Lymphocytes/100 WBC (Bld) 12.3 % Low 19-41 [facility] Comment on above: Performed By: #### L 500.3400, L700.6800, L500.2500, L505.5000, L100.0100, L501.2450 ####[facility] [address] [place], [address] MCH (RBC) [Entitic mass] 29.9 pg Normal 27.0-32.0 [facility] Comment on above: Performed By: #### L 500.3400, L700.6800, L500.2500, L505.5000, L100.0100, L501.2450 ####[facility] [address] [place], [address] MCHC (RBC) [Mass/Vol] 33.2 g/dL Normal 32-36 [facility] Comment on above: Performed By: #### L 500.3400, L700.6800, L500.2500, L505.5000, L100.0100, L501.2450 ####[facility] [address] [place], [address] MCV (RBC) [Entitic vol] 90.2 fL Normal 81-99 [facility] Comment on above: Performed By: #### L 500.3400, L700.6800, L500.2500, L505.5000, L100.0100, L501.2450 ####[facility] [address] [place], [address] Monocytes/100 WBC (Bld) 4.4 % Normal 0-10 [facility] Comment on above: Performed By: #### L 500.3400, L700.6800, L500.2500, L505.5000, L100.0100, L501.2450 ####[facility] [address] [place], [address] Neutrophils/100 WBC (Bld) 81.7 % High 47-70 [facility] Comment on above: Performed By: #### L 500.3400, L700.6800, L500.2500, L505.5000, L100.0100, L501.2450 ####[facility] [address] [place], [address] Nucleated RBC (Bld) [#/Vol] 0 10*3/uL Normal 0-5 [facility] Comment on above: Performed By: #### L 500.3400, L700.6800, L500.2500, L505.5000, L100.0100, L501.2450 ####[facility] [address] [place], [address] Platelet mean volume (Bld) [Entitic vol] 11.2 fL Normal 6.2-12.0 [facility] Comment on above: Performed By: #### L 500.3400, L700.6800, L500.2500, L505.5000, L100.0100, L501.2450 ####[facility] [address] [place], [address] Platelets (Bld) [#/Vol] 311 10*3/uL Normal 150-450 [facility] Comment on above: Performed By: #### L 500.3400, L700.6800, L500.2500, L505.5000, L100.0100, L501.2450 ####[facility] [address] [place], [address] RBC (Bld) [#/Vol] 4.68 10*6/uL Normal 4.2-5.4 [facility] Comment on above: Performed By: #### L 500.3400, L700.6800, L500.2500, L505.5000, L100.0100, L501.2450 ####[facility] [address] [place], [address] RDW SD 43.1 fl Normal 35.1-43.9 [facility] Comment on above: Performed By: #### L 500.3400, L700.6800, L500.2500, L505.5000, L100.0100, L501.2450 ####[facility] [address] [place], [address] WBC (Bld) [#/Vol] 17.0 10*3/uL High 4.4-11.0 [facility] Comment on above: Performed By: #### L 500.3400, L700.6800, L500.2500, L505.5000, L100.0100, L501.2450 ####[facility] [address] [place], [address] CNOVon 08-18-2025 CNOV Office Visit (INTMWS ) ----- [place] ([id number]) 2000 F [place] Date Time Provider Department 08/18/25 9:20 AM KELLI BOYLE During your visit today, we recorded the following information about you: Temperature Pulse Respiration Blood pressure 98.2 degrees 90/minute 16/minute 148/90 Weight 87.1 kg Kelli Boyle APRN.[facility] 08/18/2025 10:58 AM Signed CC: Patient presents with: Diarrhea: Diarrhea daily, vomiting HPI Jackson Ny is a 24 year old female who presents today for diarrhea and vomiting. Visit difficult to fully complete due to the severity of vomiting throughout visit. Recording using [employer] software for draft documentation of the visit was discussed with the patient/authorized primary care sales representative; all questions welcomed and answered. Patient/authorized primary care sales representative agreed to proceed Giorgio Ny is a 24-year-old female with a history of hypothyroidism, presenting with acute onset emesis and chronic diarrhea. Emesis: - Acute onset emesis, x2 episodes today. - Emesis described as spit and phlegm. - Denies hematemesis. - Denies recent dietary changes; consumed leftover spaghetti made a few days ago. - Denies fever, chills, or myalgias. - Denies recent exposure to individuals with similar symptoms; notes a stomach flu outbreak among acquaintances a few weeks ago but no one recently - Denies recent travel. - Denies known food allergies; family history of food allergies. - Denies recent alcohol consumption; smokes marijuana daily, with last use this morning. - Denies known ; last menstrual period was recent. Is sexually active without use of protection. Chronic Diarrhea: - Chronic diarrhea, x2-3 months. - Bowel movements 3-7 times daily, with initial liquid consistency followed by semi-solid stool. - Associated with abdominal cramping and very bad stomach aches. - Denies hematochezia or melena. - Denies dysuria or hematuria. - Retains appendix and gallbladder. Epigastric pain - Reports current epigastric pain, likely secondary to emesis. - Denies dyspnea, palpitations, or edema. Hypothyroidism: - Non-adherent to levothyroxine 75 mcg due to adverse effects. - Last thyroid function test approximately a few months ago right before she stopped her med due to it making her nauseated. REVIEW OF SYSTEMS See HPI PAST MEDICAL HISTORY Diagnosis Date Abnormal Pap smear of cervix 07/2019 LSIL Bacterial vaginosis Chlamydia infection 07/2019 Exercise-induced asthma (HCC) Generalized anxiety disorder Herpes simplex virus (HSV) infection Herpes, genital 2024 Infectious mononucleosis 01/2017 Trichimoniasis PAST SURGICAL HISTORY Procedure Laterality Date NONE ALLERGIES Amoxicillin and Lavender (Lavandula Angustifolia) MEDICATIONS levothyroxine (SYNTHROID) 75 mcg tablet Take 1 tablet by mouth once daily. prazosin (MINIPRESS) 1 mg cap Take 1 mg by mouth two times a day. QUEtiapine (SEROQUEL) 50 mg tablet Take 50 mg by mouth daily at bedtime. sertraline (ZOLOFT) 50 mg tablet Take 50 mg by mouth once daily. valACYclovir (VALTREX) 1 gram tablet Take 1 tablet by mouth once daily. FAMILY HISTORY Problem Relation Age of Onset No Known Problems Father No Known Problems Sister No Known Problems Sister No Known Problems Brother No Known Problems Brother No Known Problems Brother No Known Problems Brother No Known Problems Brother No Known Problems Brother No Known Problems Brother Stroke Maternal Grandfather other (Asthma) Other Grandparent SOCIAL HISTORY[1] PHYSICAL EXAM BP 148/90 Pulse 90 Temp 36.8 ?C (98.2 ?F) (Temporal) Resp 16 Wt 87.1 kg (192 lb) LMP 03/18/2025 (Approximate) SpO2 98% BMI 30.99 kg/m? General Appearance: patient pale, tired, and actively vomiting. alert Lungs: Lungs clear to auscultation. No wheezing, rhonchi, rales. Heart: RRR without murmur, gallop, or rubs. No ectopy Abdomen: Abdomen soft, . Bowel sounds normal. No masses, organomegaly. Mild tenderness reported to LUQ without grimacing, guarding, rigidity, or rebound pain. Health maintenance reviewed with patient: HPV Vaccine(3 - 3-dose series) due on 08/25/2014 Depression Screening Never done Anxiety Screening Never done Influenza Vaccine(1) due on 06/12/2025 Covid-19 Vaccine( season) due on 06/12/2025 Annual PCP Team Chronic Disease Visit due on 05/08/2026 Cervical Cancer Screening due on 06/24/2027 DTaP,Tdap,Td Vaccine(8 - Td or Tdap) due on 03/16/2034 Hepatitis B Vaccine Completed Hepatitis C Screening Completed HIV Screening Completed DATA REVIEWED: No new labs Assessment/Plan 1. Nausea and vomiting in adult (R11.2) 2. Diarrhea, unspecified type (R19.7) 3. Left upper quadrant abdominal tenderness without rebound tenderness (R10.812) - Patient with visit having to e halted so patient can vomit i (more content not included)... Normal [facility] Emergency Department Summary on 08-18-2025 Emergency Department Summary [facility] Medical Records Department [address] [place] [address] Emergency Department Summary 08/18/25 MR#: [id number] Acct: [id number] Name: [place] Rep #: [id number] : 2000 24 From: Ridge Perez DO PCP: Dr. Elsa Bro MD Status:DEP ER Location: ED HPI History of Present Illness Chief Complaint: Nausea/Vomiting Informant: patient Narrative Narrative: 24-year-old female presenting to the emergency room with a chief complaint of vomiting. Patient states that she has had diarrhea for months. She woke this morning with vomiting. She notes lower abdominal pain that has not been new but an epigastric discomfort that is new since vomiting. She went to see primary care today who checked her urine and wrote her Zofran and then referred her to the emergency department. Patient states she feels sweaty and hot has not checked her fever. She notes that she has not been taking her levothyroxine. She vapes and utilizes cannabis recreationally. She denies any history of pancreatitis. No prior abdominal surgeries. [facility] Medical History Nexplanon insertion Acute blood loss anemia atony of uterus with hemorrhage Severe preeclampsia Trauma PTSD (post-traumatic stress disorder) Anxiety Depression Pre-eclampsia History of pneumonia History of substance abuse Asthma Home Medications ???Medication ???Instructions ???Recorded ???Last Taken ???Type vit no.95-ferrous 1 tab PO DAILY 03/23/24 Unknown Hi story fumarate 28 mg-folic acid 800 mcg tablet () azithromycin 250 mg tablet 250 mg PO .COMPLEX #12 tabs Unknown Rx pantoprazole 20 mg tablet,delayed 20 mg PO QDAY 05/03/24 Unknown Hi story release ferrous sulfate 325 mg (65 mg 325 mg PO QODAY 05/06/24 Unknown H istory iron) tablet (iron) ferrous sulfate 325 mg (65 mg 325 mg PO QODAY 60 days #30 tabs 0 05/10/24 Unknown Rx iron) tablet (FeroSul) ibuprofen 600 mg tablet 600 mg PO Q6H PRN Pain 20 days #60 05/10/24 Unknown Rx TABLETS labetalol 200 mg tablet 200 mg PO BID 10 days #20 tabs Unknown Rx Allergy/AdvReac Type Severity Reaction Status Date / Time amoxicillin (Amoxicillin) Allergy NOT SURE, Verified 08/18/25 11:09 WAS A BABY lavender (Lavandula Allergy Rash Verified 08/18/25 11:09 angustifolia) Family History Mother Depression Substance abuse Brother Depression Grandfather Substance abuse Social History Smoking Status: Current every day smoker tobacco type: e-cigarettes Tobacco: How many years used: 4 alcohol intake: former year quit: 2015 substance use type: former substance user 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 use: 04/09/18 and methamphetamine what type of physical activity do you participate in: yoga, aerobics and weight training frequency: 1-2 times per week ROS ROS ED Constitutional Constitutional ED: Reports chills and sweats; Denies fever(s) or weight loss Eyes Eyes: Denies change in vision or diplopia ENT ENT ED: Denies ear pain, rhinorrhea or sore throat Cardiovascular Cardiovascular: Denies chest pain, orthopnea, palpitations or racing heartbeat Respiratory/Chest Respiratory/Chest: Denies cough, dyspnea or orthopnea Gastrointestinal Gastrointestinal: Reports abdominal pain, diarrhea, nausea and vomiting Genitourinary Genitourinary ED: Denies dysuria, hematuria or urinary frequency Musculoskeletal Musculoskeletal: Denies arthralgias, back pain, myalgias or neck pain Integumentary Denies abscess or rash Neurologic Neurologic: Denies headache(s) or weakness Psychiatric Psychiatric: Denies anxiety, depression, suicidal ideation or suicidal thoughts Endocrine Endocrinology: Denies polydipsia, polyphagia or polyuria Allergic/Immunologic Allergic/Immunologic ED: Denies mouth swelling, tongue swelling or urticaria EXAM Physical Exam Const Vital Signs: 08/18/25 11:07 08/18/25 12:11 08/18/25 12:59 Temperature 97.2 F L Temperature Source Temporal Pulse Rate 90 90 88 Respiratory Rate 20 H 18 14 Blood Pressure 138/93 H 136/90 H 124/86 H Blood Pressure Mean 108 105 98 Pulse Ox 100 99 100 Oxygen Delivery Method Room Air 08/18/25 13:57 08/18/25 14:59 Temperature 98.6 F Temperature Source Pulse Rate 80 80 Respiratory Rate 16 Blood Pressure 124/86 H 124/86 H Blood Pressure Mean 98 98 Pulse Ox 99 Oxygen Delivery Method Positive well nourished and well developed General Appearance ED: well developed and NAD HEENT Reports normocephalic, head/scalp atraumatic and moist mucous membranes Eyes PERRL and EOMs intact bilaterally Neck (more content not included)... Normal [facility] Lipaseon 08-18-2025 Lipase [Catalytic activity/Vol] 19 U/L Normal 13-75 [facility] Comment on above: Result Comment: Margareth sandoval note: LIPASE revised reference range effective 23. New Lipase methodology. Expected to produce lower values than the previous assay method. NEW Reference Range: 13 - 75 U/L Performed By: #### L 500.3400, L700.6800, L500.2500, L505.5000, L100.0100, L501.2450 ####[facility] [address] [place], [place], [address] Liver Profileon 08-18-2025 Albumin [Mass/Vol] 4.9 g/dL Normal 3.5-5.0 [facility] Comment on above: Performed By: #### L 500.3400, L700.6800, L500.2500, L505.5000, L100.0100, L501.2450 ####[facility] [address] [place], [address] ALK PHOS 81 U/L Normal 35-104 [facility] Comment on above: Performed By: #### L 500.3400, L700.6800, L500.2500, L505.5000, L100.0100, L501.2450 ####[facility] [address] [place], [address] ALT [Catalytic activity/Vol] 11 U/L Normal <=34 [facility] Comment on above: Performed By: #### L 500.3400, L700.6800, L500.2500, L505.5000, L100.0100, L501.2450 ####[facility] [address] [place], [address] AST [Catalytic activity/Vol] 17 U/L Normal <=31 [facility] Comment on above: Performed By: #### L 500.3400, L700.6800, L500.2500, L505.5000, L100.0100, L501.2450 ####[facility] [address] [place], [address] Bilirubin [Mass/Vol] 0.46 mg/dL Normal 0.00-1.30 [facility] Comment on above: Performed By: #### L 500.3400, L700.6800, L500.2500, L505.5000, L100.0100, L501.2450 ####[facility] [address] [place], [address] Bilirubin.direct [Mass/Vol] 0.18 mg/dL Normal 0.00-0.30 [facility] Comment on above: Performed By: #### L 500.3400, L700.6800, L500.2500, L505.5000, L100.0100, L501.2450 ####[facility] [address] [place], [place], [id number] Globulin (S) [Mass/Vol] 3.3 g/dL Normal 2.2-4.2 [facility] Comment on above: Performed By: #### L 500.3400, L700.6800, L500.2500, L505.5000, L100.0100, L501.2450 ####[facility] [address] [facility] [address] T PROT 8.2 g/dL Normal 5.9-8.4 [facility] Comment on above: Performed By: #### L 500.3400, L700.6800, L500.2500, L505.5000, L100.0100, L501.2450 ####[facility] [address] [place] [address] ,Serum,hCG Quali.on 08-18-2025 HCG, SERUM QUAL Negative Normal [facility] Comment on above: Performed By: #### L 500.3400, L700.6800, L500.2500, L505.5000, L100.0100, L501.2450 ####[facility] [address] [place] [address] Urine Drug Screen (VISTA)on 08-18-2025 AMPHETAMINES Negative Normal <1000 ng/mL [facility] Comment on above: Performed By: #### L 500.3400, L700.6800, L500.2500, L505.5000, L100.0100, L501.2450 ####[facility] [address] [place] [phone] BARBITIURATES Negative Normal < 200 ng/mL [facility] Comment on above: Performed By: #### L 500.3400, L700.6800, L500.2500, L505.5000, L100.0100, L501.2450 ####[facility] [address] [place] [phone] BENZODIAZIPINE Negative Normal < 200 ng/mL [facility] Comment on above: Performed By: #### L 500.3400, L700.6800, L500.2500, L505.5000, L100.0100, L501.2450 ####[facility] [address] [place], [address] BUP Ur Drug Scr Negative Normal < 200 ng/mL [facility] Comment on above: Performed By: #### L 500.3400, L700.6800, L500.2500, L505.5000, L100.0100, L501.2450 ####[facility] [address] [place], [address] COCAINE Negative Normal < 300 ng/mL [facility] Comment on above: Performed By: #### L 500.3400, L700.6800, L500.2500, L505.5000, L100.0100, L501.2450 ####[facility] [address] [place], [address] Fentanyl Negative Normal <5 ng/mL [facility] Comment on above: Result Comment: CONF IRMATORY TESTING FOR ALL POSITIVE URINE DRUG SCREEN RESULTS WILL ONLY BE SENT OUT UPON PHYSICIAN ORDER. Sim Pro Urine Drug Screen methods provide only preliminary analytical test results. A more specific alternate chemical method must be used in order to obtain a confirmed analytical result. Gas chromatography/mass spectrometery (GC/MS) is the preferred confirmatory method. Clinical consideration and professional judgement should be applied to any drug of abuse test result, particularly when preliminary positive results are used. Urine TCA testing must be ordered separately. Use test mnemonic: UTCA Performed By: #### L 500.3400, L700.6800, L500.2500, L505.5000, L100.0100, L501.2450 ####[facility] [address] [place], [address] METHADONE Negative Normal < 300 ng/mL [facility] Comment on above: Performed By: #### L 500.3400, L700.6800, L500.2500, L505.5000, L100.0100, L501.2450 ####[facility] [address] [place], [address] OPIATES Negative Normal < 300 ng/mL [facility] Comment on above: Performed By: #### L 500.3400, L700.6800, L500.2500, L505.5000, L100.0100, L501.2450 ####[facility] [address] [place], [address] OXYCODONE Negative Normal < 100 ng/mL [facility] Comment on above: Performed By: #### L 500.3400, L700.6800, L500.2500, L505.5000, L100.0100, L501.2450 ####[facility] [address] [place], [place], [phone] PCP Negative Normal < 25 ng/mL [facility] Comment on above: Performed By: #### L 500.3400, L700.6800, L500.2500, L505.5000, L100.0100, L501.2450 ####[facility] [address] [place], [place], [phone] THC Positive Normal < 50 ng/mL [facility] Comment on above: Result Comment: If c onfirmation testing is needed, a separate order will be required to send out testing to the reference laboratory. Performed By: #### L 500.3400, L700.6800, L500.2500, L505.5000, L100.0100, L501.2450 ####[facility] [address] [place], [address] BACTERIAL VAGINOSIS NAATon 1 0- Lactobacillus crispatus+gasseri+pierre senii + Gardnerella vaginalis + Atopobium vaginae rRNA JOSE+probe Ql (Vag fld) Not detected Normal Not detected [facility] Comment on above: Order Comment: Speci men Type: SWABOrdering Facility: [facility] Address: [address] [place] [address] Performed By: #### B VAMP, 25472-8 ####[facility] LABCLIA [id number] [place] [address] [place] C. trachomatis+N. gonorrhoea e DNA JOSE+probe Ql (Unsp spec)on 07-25-2025 C. trachomatis rRNA JOSE+probe Ql (Unsp spec) Not detected Normal Not detected [facility] Comment on above: Order Comment: Speci men Type: SWABOrdering Facility: [facility] Address: [address] [place] [address] Performed By: #### B VAMP, [id number] ####[facility] LABCLIA [id number] [place] [address] [place] N. gonorrhoeae rRNA JOSE+probe Ql (Unsp spec) Not detected Normal Not detected [facility] Comment on above: Order Comment: Speci men Type: SWABOrdering Facility: [facility] Address: [address] [place] [address] Performed By: #### B VAMP, 63496-0 ####[facility] LABCLIA [id number] [place] [address] [place] DAX/TRICHOMONAS NAATon 1 C. glabrata RNA JOSE+probe Ql (Vag fld) Not detected Normal Not detected [facility] Comment on above: Order Comment: Speci men Type: SWABOrdering Facility: [facility] Address: [address] [place] [address] Performed By: #### C VTV ####[facility] LABCLIA [id number] [place] [address] [place] Dax sp DNA JOSE+probe Ql (Vag fld) Not detected Normal Not detected [facility] Comment on above: Order Comment: Speci men Type: SWABOrdering Facility: [facility] Address: [address] [place] [address] Result Comment: The Dax species group target includes C. albicans, C. tropicalis, C. parapsilosis, and C. dubliniensis. Performed By: #### C VTV ####[facility] LABCLIA [id number] [address] [place] T. vaginalis DNA JOSE+probe Ql (Unsp spec) Not detected Normal Not detected [facility] Comment on above: Order Comment: Speci men Type: SWABOrdering Facility: [facility] Address: [address] [place] [address] Performed By: #### C VTV ####[facility] LABCLIA [id number] [address] [place] CNOVon 07-25-2025 CNOV Office Visit ([facility]) ----- [place] ([id number]) 2000 [facility] Date Time Provider Department 07/25/25 12:15 PM TAINA ALBRIGHT During your visit today, we recorded the following information about you: Temperature Pulse Respiration Blood pressure 98 degrees 75/minute 18/minute 116/78 Weight 91 kg Taina Albright APRN.UNDERGROUND UTILITY LOCATOR 07/25/2025 12:36 PM Signed [facility] Subjective Jackson Quick Juan R is a 24 year old female. Patient presents with: Diarrhea: Diarrhea and stomach pain x 1 day-also thinks she may have a yeast infection x 2-3 days Diarrhea The patient is a 24-year-old female with a history of hypothyroidism, presenting with acute diarrhea and abdominal pain, as well as concerns about a possible yeast infection. Diarrhea and Abdominal Pain: - Onset yesterday. - Uncertain if symptoms are improving. - Urgent bowel movement this morning, nearly unable to finish changing her son. - Called out of work due to symptoms. - Denies fever. - Reports intermittent gastrointestinal discomfort, attributing it to thyroid medication. - Admits to occasional non-adherence to thyroid medication. Vaginal Discomfort: - Onset a few days ago. - Describes as "uncomfortable" with increased discharge, but denies itching or burning. - Denies presence of sores. - Sexually active; has herpes but not currently experiencing an outbreak. - Discharge described as "normal" in color, possibly slightly brown, but mostly white. - Recently finished menstrual period. - Denies dysuria. Review of Systems Gastrointestinal: Positive for diarrhea. Constitutional: (-) fever Gastrointestinal: (+) diarrhea, (+) abdominal pain Genitourinary: (+) increased vaginal discharge, (+) vaginal discomfort, (-) dysuria, (-) vaginal itching, (-) pelvic pain, (-) genital sores Objective BP 116/78 Pulse 75 Temp 36.7 ?C (98 ?F) (Tympanic) Resp 18 Wt 91 kg (200 lb 9.9 oz) LMP 03/18/2025 (Approximate) SpO2 98% BMI 32.38 kg/m? Physical Exam Constitutional: Appearance: Normal appearance. Pulmonary: Effort: Pulmonary effort is normal. Neurological: Mental Status: She is alert. General: No acute distress. CV: Regular rate and rhythm. Resp: Lungs clear to auscultation bilaterally. Abd: No tenderness to palpation, bowel sounds normal. { 1. Vaginal discharge (N89.8) - No pain, itching, or sores; discharge described as white to brown, with recent menses. - Differential includes bacterial vaginosis, yeast infection, and STIs. - Collected vaginal swabs for bacterial vaginosis, yeast, chlamydia, gonorrhea, and trichomonas testing. - Discussed that bacterial vaginosis and yeast infections are not STDs and can occur independently. - Will treat according to results if any tests return positive. 2. Diarrhea, unspecified type (R19.7) - Acute onset yesterday; no associated fever or abdominal pain. - Patient suspects thyroid medication may be contributing. - Advised patient on the importance of consistent thyroid medication adherence and potential dangers of non-compliance, including heart arrhythmias. - Encouraged patient to discuss medication concerns with her doctor. and Recording using [employer] software for draft documentation of the visit was discussed with the patient/authorized primary care sales representative; all questions welcomed and answered. Patient/authorized primary care sales representative agreed to proceed MDM Procedures Allergies As of Date: 07/25/2025 Noted Allergy Reaction AMOXICILLIN 11/24/2013 7 - Swelling LAVENDER (LAVANDULA ANGUSTIFOLIA) 03/12/2023 2 - Rash Date Reviewed: 07/25/2025 Reviewed by: Ene Lowery LPN - Fully Assessed Reason for Visit: Diarrhea [35] Cmt: Diarrhea and stomach pain x 1 day-also thinks she may have a yeast infection x 2-3 days Primary Visit Diagnosis:Vaginal discharge [N89.8] Other Visit Diagnosis:Diarrhea, unspecified type [R19.7] Order(s):BACTERIAL VAGINOSIS NAAT [SQBVAMP] Order #: [id number]. #:[id number] GONORRHEA/CHLAMYDIA NAAT [SQGCCT] Order #: [id number]. #:[id number] DAX/TRICHOMONAS NAAT [SQCVTV] Order #: [id number]. #:[id number] Prescriptions as of 07/25/2025 - levothyroxine (SYNTHROID) 75 mcg tablet Take 1 tablet by mouth once daily. - prazosin (MINIPRESS) 1 mg cap Take 1 mg by mouth two times a day. - QUEtiapine (SEROQUEL) 50 mg tablet Take 50 mg by mouth daily at bedtime. - sertraline (ZOLOFT) 50 mg tablet Take 50 mg by mouth once daily. - valACYclovir (VALTREX) 1 gram tablet Take 1 tablet by mouth once daily. Problem List As Of Date 07/25/2025 Noted Resolved ADHD (attention deficit hyperactivity disorder)*06/02/2014 Acute hepatitis [B17.9] 01/11/2021 Bipolar disorder (HCC) [F31.9] 06/03/2018 History of drug abuse (HCC) [F19.11] 01/11/2021 06/24/2024 with uncertain dates in first trimest (more content not included)... Normal [facility] CNOVon 07-14-2025 CNOV Office Visit ([facility]) ----- [place] ([id number]) 2000 [facility] Date Time Provider Department 07/14/25 5:00 PM LINDA FELTON During your visit today, we recorded the following information about you: Temperature Pulse Respiration Blood pressure 98.6 degrees 83/minute 18/minute 97/63 Weight 90 kg Linda Felton, TAVO.UNDERGROUND UTILITY LOCATOR 07/14/2025 5:16 PM Signed [facility] Subjective Jackson Ny is a 24 year old female. Patient presents with: Vomiting: X last night, now resolved, needs work excuse Vomiting The patient is a 24-year-old female presenting for evaluation after experiencing multiple episodes of emesis last night. Emesis: - Vomited 3-4 times last night. - No emesis today. - Son, 14 months old, also vomited last night. - Stayed home from work today to avoid spreading potential illness. - Denies fever, chills, diarrhea, or abdominal pain today. - No current nausea; reports feeling alright. Review of Systems Gastrointestinal: Positive for vomiting. Constitutional: (-) fever, (-) chills Gastrointestinal: (-) vomiting, (-) nausea, (-) diarrhea, (-) abdominal pain Objective BP 97/63 Pulse 83 Temp 37 ?C (98.6 ?F) Resp 18 Wt 90 kg (198 lb 6.6 oz) LMP 03/18/2025 (Approximate) SpO2 96% BMI 32.02 kg/m? PAST MEDICAL HISTORY Diagnosis Date - Abnormal Pap smear of cervix 07/2019 [facility] - Bacterial vaginosis - Chlamydia infection 07/2019 - Exercise-induced asthma (HCC) - Generalized anxiety disorder - Herpes simplex virus (HSV) infection - Herpes, genital 2024 - Infectious mononucleosis 01/2017 - Trichimoniasis PAST SURGICAL HISTORY Procedure Laterality Date - NONE ALLERGIES Amoxicillin and Lavender (Lavandula Angustifolia) MEDICATIONS - levothyroxine (SYNTHROID) 75 mcg tablet Take 1 tablet by mouth once daily. - prazosin (MINIPRESS) 1 mg cap Take 1 mg by mouth two times a day. - QUEtiapine (SEROQUEL) 50 mg tablet Take 50 mg by mouth daily at bedtime. - sertraline (ZOLOFT) 50 mg tablet Take 50 mg by mouth once daily. - valACYclovir (VALTREX) 1 gram tablet Take 1 tablet by mouth once daily. FAMILY HISTORY Problem Relation Age of Onset - No Known Problems Father - No Known Problems Sister - No Known Problems Sister - No Known Problems Brother - No Known Problems Brother - No Known Problems Brother - No Known Problems Brother - No Known Problems Brother - No Known Problems Brother - No Known Problems Brother - Stroke Maternal Grandfather - other (Asthma) Other Grandparent SOCIAL HISTORY[1] Physical Exam Vitals and nursing note reviewed. Constitutional: General: She is not in acute distress. Appearance: Normal appearance. She is not ill-appearing. Cardiovascular: Rate and Rhythm: Normal rate and regular rhythm. Heart sounds: Normal heart sounds. Pulmonary: Effort: Pulmonary effort is normal. No respiratory distress. Breath sounds: Normal breath sounds. No wheezing or rales. Abdominal: General: Bowel sounds are normal. There is no distension. Palpations: Abdomen is soft. There is no mass. Tenderness: There is no abdominal tenderness. There is no guarding. Neurological: Mental Status: She is alert. { 1. History of vomiting (Z87.898) - Acute episode of vomiting last night (3-4 times) with no further emesis today; no fever, chills, diarrhea, or abdominal pain; likely viral etiology. - Advised to maintain adequate hydration to replace fluid losses. - Recommended frequent handwashing upon return to work to minimize risk of transmission. - Provided work note for absence today. - Follow-up with your PCP in 3-5 days if symptoms have not improved or sooner if symptoms worsen - Discussed red flags and need for immediate medical evaluation if any occur. - Discussed supportive care treatment with fluids, rest and analgesia. - Discussed expected course of illness Linda Felton APRN.UNDERGROUND UTILITY LOCATOR and Recording using [employer] software for draft documentation of the visit was discussed with the patient/authorized primary care sales representative; all questions welcomed and answered. Patient/authorized primary care sales representative agreed to proceed Disposition The patient was discharged. Procedures [1] Social History Tobacco Use - Smoking status: Former Current packs/day: 0.25 Average packs/day: 0.3 packs/day for 0.5 years (0.1 ttl pk-yrs) Types: Cigarettes - Smokeless tobacco: Never Vaping Use - Vaping status: current everyday user - Substances: Nicotine, Flavoring - Devices: Disposable Substance Use Topics - Alcohol use: No - Drug use: Not Currently Frequency: 7.0 times per week Types: Marijuana Misty-Linda Olmstead APRN.CNP 07/14/2025 5:16 PM Signed 1. History of vomiting (Z87.898) - Acute episode of vomiting last night (3-4 times) with no further emesis today; no fever, chills, diarrhea, or abdomin (more content not included)... Normal [facility] CBC W Auto Differential pane l (Bld)on 05-08-2025 Basophils (Bld) [#/Vol] 0.06 10*3/uL [facility] Basophils/100 WBC (Bld) 0.6 % [facility] Differential cell count method Nom (Bld) Auto [facility] Eosinophils (Bld) [#/Vol] 0.13 10*3/uL [facility] Eosinophils/100 WBC (Bld) 1.2 % [facility] Erythrocyte distribution width (RBC) [Ratio] 12.9 % 11.5 - 15.0 % [facility] Hematocrit (Bld) [Volume fraction] 36.2 % 36.0 - 46.0 % [facility] Hemoglobin (Bld) [Mass/Vol] 11.5 g/dL 11.5 - 15.5 g/dL [facility] Immature granulocytes (Bld) [#/Vol] 0.04 10*3/uL [facility] Immature granulocytes/100 WBC (Bld) 0.4 % [facility] Lymphocytes (Bld) [#/Vol] 2.65 10*3/uL [facility] Lymphocytes/100 WBC (Bld) 25.4 % [facility] MCH (RBC) [Entitic mass] 29.3 pg 26.0 - 34.0 pg [facility] MCHC (RBC) [Mass/Vol] 31.8 g/dL 30.5 - 36.0 g/dL [facility] MCV (RBC) [Entitic vol] 92.3 fL 80.0 - 100.0 fL [facility] Monocytes (Bld) [#/Vol] 0.7 10*3/uL NINF [facility] Monocytes/100 WBC (Bld) 6.7 % [facility] Neutrophils (Bld) [#/Vol] 6.87 10*3/uL [facility] Neutrophils/100 WBC (Bld) 65.7 % [facility] Nucleated RBC (Bld) [#/Vol] NINF [facility] Nucleated RBC/100 WBC (Bld) [Ratio] 0 % /100 WBC [facility] Platelet mean volume (Bld) [Entitic vol] 11.6 fL 9.0 - 12.7 fL [facility] Platelets (Bld) [#/Vol] 265 10*3/uL [facility] RBC (Bld) [#/Vol] 3.92 10*6/uL 3.90 - 5.2 0 m/uL [facility] WBC (Bld) [#/Vol] 10.45 10*3/uL [facility] Basophils (Bld) [#/Vol] 0.06 10*3/uL Normal <0.11 [facility] Comment on above: Order Comment: Speci men Type: BLOOD SPECIMENOrdering Facility: [facility] Address: [address] [place] [address] Performed By: #### 5 7021-8 ####[facility] LABCLIA [id number] [address] [place] Basophils/100 WBC (Bld) 0.6 % Normal [facility] Comment on above: Order Comment: Speci men Type: BLOOD SPECIMENOrdering Facility: [facility] Address: [address] [place] [address] Performed By: #### 5 7021-8 ####[facility] LABCLIA [id number] [place] [address] [place] Differential cell count method Nom (Bld) Auto Normal [facility] Comment on above: Order Comment: Speci men Type: BLOOD SPECIMENOrdering Facility: [facility] Address: [address] [place] [address] Performed By: #### 5 7021-8 ####[facility] LABCLIA [id number] [address], [place] [address] [place] Eosinophils (Bld) [#/Vol] 0.13 10*3/uL Normal <0.46 [facility] Comment on above: Order Comment: Speci men Type: BLOOD SPECIMENOrdering Facility: [facility] Address: [address] [place] [address] Performed By: #### 5 7021-8 ####[facility] LABCLIA [id number] [facility] [address], [place] [address] [place] Eosinophils/100 WBC (Bld) 1.2 % Normal [facility] Comment on above: Order Comment: Speci men Type: BLOOD SPECIMENOrdering Facility: [facility] Address: [address] [place] [address] Performed By: #### 5 7021-8 ####[facility] LABCLIA [id number] [address], [place] [address] [place] Erythrocyte distribution width (RBC) [Ratio] 12.9 % Normal 11.5-15.0 [facility] Comment on above: Order Comment: Speci men Type: BLOOD SPECIMENOrdering Facility: [facility] Address: [address] [place] [address] Performed By: #### 5 7021-8 ####[facility] LABCLIA [id number] [address], [place] [address] [place] Hematocrit (Bld) [Volume fraction] 36.2 % Normal 36.0-46.0 [facility] Comment on above: Order Comment: Speci men Type: BLOOD SPECIMENOrdering Facility: [facility] Address: [address] [place] [address] Performed By: #### 5 7021-8 ####[facility] LABCLIA [id number] [address], [facility] [place] Hemoglobin (Bld) [Mass/Vol] 11.5 g/dL Normal 11.5-15.5 [facility] Comment on above: Order Comment: Speci men Type: BLOOD SPECIMENOrdering Facility: [facility] Address: [address] [place] [address] Performed By: #### 5 7021-8 ####[facility] LABCLIA [id number] [place] [id number] [place] Immature granulocytes (Bld) [#/Vol] 0.04 10*3/uL Normal <0.10 [facility] Comment on above: Order Comment: Speci men Type: BLOOD SPECIMENOrdering Facility: [facility] Address: [address] [place] [address] Performed By: #### 5 7021-8 ####[facility] LABCLIA [id number] [place] [address] [place] Immature granulocytes/100 WBC (Bld) 0.4 % Normal [facility] Comment on above: Order Comment: Speci men Type: BLOOD SPECIMENOrdering Facility: [facility] Address: [address] [place] [address] Performed By: #### 5 7021-8 ####[facility] LABCLIA [id number] [place] [address] [place] Lymphocytes (Bld) [#/Vol] 2.65 10*3/uL Normal 1.00-4.00 [facility] Comment on above: Order Comment: Speci men Type: BLOOD SPECIMENOrdering Facility: [facility] Address: [address] [place] [address] Performed By: #### 5 7021-8 ####[facility] LABCLIA [id number] [place] [address] [place] Lymphocytes/100 WBC (Bld) 25.4 % Normal [facility] Comment on above: Order Comment: Speci men Type: BLOOD SPECIMENOrdering Facility: [facility] Address: [address] [place] [address] Performed By: #### 5 7021-8 ####[facility] LABIA [id number] [place] [address] [place] MCH (RBC) [Entitic mass] 29.3 pg Normal 26.0-34.0 [facility] Comment on above: Order Comment: Speci men Type: BLOOD SPECIMENOrdering Facility: [facility] Address: [address] [place] [address] Performed By: #### 5 7021-8 ####[facility] LABIA [id number] [place] [address] [place] MCHC (RBC) [Mass/Vol] 31.8 g/dL Normal 30.5-36.0 [facility] Comment on above: Order Comment: Speci men Type: BLOOD SPECIMENOrdering Facility: [facility] Address: [address] [place] [address] Performed By: #### 5 7021-8 ####[facility] [id number] [place] [address] [place] MCV (RBC) [Entitic vol] 92.3 fL Normal 80.0-100.0 [facility] Comment on above: Order Comment: Speci men Type: BLOOD SPECIMENOrdering Facility: [facility] Address: [address] [place] [address] Performed By: #### 5 7021-8 ####[facility] [id number] [place] [address] [place] Monocytes (Bld) [#/Vol] 0.70 10*3/uL Normal <0.87 [facility] Comment on above: Order Comment: Speci men Type: BLOOD SPECIMENOrdering Facility: [facility] Address: [address] [place] [address] Performed By: #### 5 7021-8 ####[facility] [id number] [place] [address] [place] Monocytes/100 WBC (Bld) 6.7 % Normal [facility] Comment on above: Order Comment: Speci men Type: BLOOD SPECIMENOrdering Facility: [facility] Address: [address] [place] [address] Performed By: #### 5 7021-8 ####[facility] LABCLIA [id number] [place] [address] [place] Neutrophils (Bld) [#/Vol] 6.87 10*3/uL Normal 1.45-7.50 [facility] Comment on above: Order Comment: Speci men Type: BLOOD SPECIMENOrdering Facility: [facility] Address: [address] [place] [address] Performed By: #### 5 7021-8 ####[facility] LABCLIA [id number] [place] [address] [place] Neutrophils/100 WBC (Bld) 65.7 % Normal [facility] Comment on above: Order Comment: Speci men Type: BLOOD SPECIMENOrdering Facility: [facility] Address: [address] [place] [address] Performed By: #### 5 7021-8 ####[facility] LABCLIA [id number] [place] [address] [place] Nucleated RBC (Bld) [#/Vol] 10*3/uL Normal <0.01 [facility] Comment on above: Order Comment: Speci men Type: BLOOD SPECIMENOrdering Facility: [facility] Address: [address] [place] [address] Performed By: #### 5 7021-8 ####[facility] LABCLIA [id number] [place] [address] [place] Nucleated RBC/100 WBC (Bld) [Ratio] 0.0 /100 WBC Normal [facility] Comment on above: Order Comment: Speci men Type: BLOOD SPECIMENOrdering Facility: [facility] Address: [address] [place], [place] [address] Performed By: #### 5 7021-8 ####[facility] LABCLIA [id number] [address] [address] [place] Platelet mean volume (Bld) [Entitic vol] 11.6 fL Normal 9.0-12.7 [facility] Comment on above: Order Comment: Speci men Type: BLOOD SPECIMENOrdering Facility: [facility] Address: [address] [place] [address] Performed By: #### 5 7021-8 ####[facility] LABCLIA [id number] [place] [address] [place] Platelets (Bld) [#/Vol] 265 10*3/uL Normal 150-400 [facility] Comment on above: Order Comment: Speci men Type: BLOOD SPECIMENOrdering Facility: [facility] Address: [address] [place] [address] Performed By: #### 5 7021-8 ####[facility] LABCLIA [id number] [place] [address] [place] RBC (Bld) [#/Vol] 3.92 10*6/uL Normal 3.90-5.20 [facility] Comment on above: Order Comment: Speci men Type: BLOOD SPECIMENOrdering Facility: [facility] Address: [address] [place] [address] Performed By: #### 5 7021-8 ####[facility] LABCLIA [id number] [place] [id number] [place] WBC (Bld) [#/Vol] 10.45 10*3/uL Normal 3.70-11.00 [facility] Comment on above: Order Comment: Speci men Type: BLOOD SPECIMENOrdering Facility: [facility] Address: [address] [place] [address] Performed By: #### 5 7021-8 ####[facility] LABCLIA [id number] [facility]ATIONMAGAL[facility] [place] [id number] [place] [facility] CNOVon 05-08-2025 CNOV Office Visit (INTMWS ) ----- [place] ([id number]) 2000 F [employer] Date Time Provider Department 05/08/25 1:40 PM KELLI BOYLE INTKATHY During your visit today, we recorded the following information about you: Pulse Respiration Blood pressure Weight 82/minute 16/minute 112/70 90.3 kg Kelli Boyle APRN.CNP 05/08/2025 5:16 PM Signed CC: Patient presents with: Physical: Annual Physical HPI Jackson Ny is a 24 year old female who presents today for annual exam but also has some concerns. Recording using [employer] software for draft documentation of the visit was discussed with the patient/authorized primary care sales representative; all questions welcomed and answered. Patient/authorized primary care sales representative agreed to proceed Annual Wellness Exam: - Recent removal of Nexplanon implant, approximately one month ago. - Works at [employer]. - Has a 1-year-old child. - Denies regular exercise; diet described as "not terrible, but not that bad." Hypothyroidism: - Diagnosed approximately 6 months ago; currently taking levothyroxine as ordered by endocrinology. - Next thyroid level check scheduled for August. - Experiencing nausea, diarrhea, heat intolerance, and fatigue. - Nausea occurs in the morning after taking medication. - Diarrhea follows eating, lasting until around 11:00-12:00. - Heat intolerance described as feeling "a million degrees at all times." - Denies hair, skin, or nail changes. - Recent weight gain; questions if thyroid medication should cause weight loss. - Denies increased thirst hunger or urination - Denies dizziness, syncope, weakness, confusion, or severe headaches. - Denies fever, chills, cough, wheezing, or dyspnea. - Denies urinary changes or dysuria. - Denies emesis, but reports one episode of "phony spit stuff" at work. - Denies chest pressure edema or palpitations. - Denies abdominal pain. Anxiety and Depression: - Managed with Seroquel, prazosin, and sertraline as ordered by psychiatry. Sleep: is described as normal Alcohol use: does not drink any alcohol Drug use: No Appetite: good Suicidal Thoughts: No suicidal or homicidal ideation, intent or plan REVIEW OF SYSTEMS See HPI PAST MEDICAL HISTORY Diagnosis Date Abnormal Pap smear of cervix 07/2019 LSIL Bacterial vaginosis Chlamydia infection 07/2019 Exercise-induced asthma (HCC) Generalized anxiety disorder Herpes simplex virus (HSV) infection Herpes, genital 2024 Infectious mononucleosis 01/2017 Trichimoniasis PAST SURGICAL HISTORY Procedure Laterality Date NONE ALLERGIES Amoxicillin and Lavender (Lavandula Angustifolia) MEDICATIONS prazosin (MINIPRESS) 1 mg cap Take 1 mg by mouth two times a day. QUEtiapine (SEROQUEL) 50 mg tablet Take 50 mg by mouth daily at bedtime. sertraline (ZOLOFT) 50 mg tablet Take 50 mg by mouth once daily. levothyroxine (SYNTHROID) 75 mcg tablet Take 1 tablet by mouth once daily. valACYclovir (VALTREX) 1 gram tablet Take 1 tablet by mouth once daily. FAMILY HISTORY Problem Relation Age of Onset No Known Problems Father No Known Problems Sister No Known Problems Sister No Known Problems Brother No Known Problems Brother No Known Problems Brother No Known Problems Brother No Known Problems Brother No Known Problems Brother No Known Problems Brother Stroke Maternal Grandfather other (Asthma) Other Grandparent Social History Tobacco Use Smoking status: Former Current packs/day: 0.25 Average packs/day: 0.3 packs/day for 0.5 years (0.1 ttl pk-yrs) Types: Cigarettes Smokeless tobacco: Never Vaping Use Vaping status: current everyday user Substances: Nicotine, Flavoring Devices: Disposable Substance Use Topics Alcohol use: No Drug use: Not Currently Frequency: 7.0 times per week Types: Marijuana PHYSICAL EXAM BP 112/70 Pulse 82 Resp 16 Wt 90.3 kg (199 lb) LMP 03/18/2025 (Approximate) SpO2 98% BMI 32.12 kg/m? General Appearance: well appearing, in no acute distress, alert Pysch: mood and affect broad and appropriate Eyes: conjunctiva pink and moist, no icterus, sclera white, non-injected Neck: Thyroid normal size and symmetric without palpable nodules, Neck supple, No adenopathy Lymph nodes: No cervical lymphadenopathy and No supraclavicular lymphadenopathy Lungs: Lungs clear to auscultation. No wheezing, rhonchi, rales. Heart: RRR without murmur, gallop, or rubs. No ectopy Abdomen: Abdomen soft, non-tender. Bowel sounds normal. No masses, organomegaly Health maintenance reviewed with patient: HPV Vaccine(3 - 3-dose series) due on 10/02/2014 Depression Screening Never done Anxiety Screening Never done Annual PCP Team Chronic Disease Visit due on 11/10/2023 Influenza Vaccine(1) due on 06/12/2025 Cervical Cancer Screening due on 06/24/2027 DTaP,Tdap,Td Vaccine(8 - Td or Tdap) due on 03/16/2034 Hepatitis B Vaccine (more content not included)... Normal [facility] Comprehensive metabolic 2000 panelon 05-08-2025 Albumin [Mass/Vol] 4.4 g/dL 3.9 - 4.9 g/dL [facility] ALP [Catalytic activity/Vol] 80 U/L 34 - 123 U/L [facility] ALT [Catalytic activity/Vol] 19 U/L 7 - 38 U/L [facility] Anion gap [Moles/Vol] 12 mmol/L 8 - 15 mmol/L [facility] AST [Catalytic activity/Vol] 20 U/L 13 - 35 U/L [facility] Bilirubin [Mass/Vol] 0.2 mg/dL 0.2 - 1 .3 mg/dL [facility] Calcium [Mass/Vol] 9.7 mg/dL 8.5 - 10. 2 mg/dL [facility] Chloride [Moles/Vol] 103 mmol/L 98 - 10 7 mmol/L [facility] CO2 [Moles/Vol] 21 mmol/L Low 22 - 30 mmol/L [facility] Creatinine [Mass/Vol] 0.71 mg/dL 0.58 - 0.96 mg/dL [facility] GFR/1.73 sq M.predicted among non-blacks MDRD (S/P/Bld) [Vol rate/Area] 120 mL/min/{1.73_m2} - PINF [facility] Comment on above: Estimated Glomerular Filtration Rate (eGFR) is calculated using the 2020 CKD-EPI creatinine equation. This equation utilizes serum creatinine, sex, and age as parameters. The creatinine assay has traceable calibration to isotope dilution-mass spectrometry. Refer to KDIGO guidelines for clinical interpretation. In patients with unstable renal function, e.g. those with acute kidney injury, the eGFR may not accurately reflect actual GFR. Glucose [Mass/Vol] 95 mg/dL 74 - 99 mg/dL [facility] Comment on above: The [place] Diabete s Association (ADA) provides guidance for cutoff values for fasting glucose and random glucose. The ADA defines fasting as no caloric intake for at least 8 hours. Fasting plasma glucose results between 100 to 125 mg/dL indicate increased risk for diabetes (prediabetes). Fasting plasma glucose results greater than or equal to 126 mg/dL meet the criteria for diagnosis of diabetes. In the absence of unequivocal hyperglycemia, results should be confirmed by repeat testing. In a patient with classic symptoms of hyperglycemia or hyperglycemic crisis, random plasma glucose results greater than or equal to 200 mg/dL meet the criteria for diagnosis of diabetes. Reference: Standards of Medical Care in Diabetes 2016, [place] [employer] Association. Diabetes Care. 2016.39(Suppl 1). Interpretation and review of laboratory results Abnormal [facility] Potassium [Moles/Vol] 4.3 mmol/L 3.7 - 5.1 mmol/L [facility] Protein [Mass/Vol] 7.3 g/dL 6.3 - 8.0 g/dL [facility] Sodium [Moles/Vol] 136 mmol/L 136 - 144 mmol/L [facility] Urea nitrogen [Mass/Vol] 16 mg/dL 7 - 21 mg/dL [facility] Albumin [Mass/Vol] 4.4 g/dL Normal 3.9-4.9 [facility] Comment on above: Order Comment: Speci men Type: BLOOD SPECIMENOrdering Facility: [facility] Address: [address] [place] [address] Performed By: #### 2 4323-8, 3024-7, 3016-3, 2132-9 ####[facility] LABCLIA [id number] [place] [address] [place] ALP [Catalytic activity/Vol] 80 U/L Normal 34-123 [facility] Comment on above: Order Comment: Speci men Type: BLOOD SPECIMENOrdering Facility: [facility] Address: [address] [place] [address] Performed By: #### 2 4323-8, 3024-7, 3015-3, 2132-06 ####[facility] LABCLIA [id number] [address] [address] [place] ALT [Catalytic activity/Vol] 19 U/L Normal 7-38 [facility] Comment on above: Order Comment: Speci men Type: BLOOD SPECIMENOrdering Facility: [facility] Address: [address] [place] [address] Performed By: #### 2 4323-8, 3024-7, 3, 2132-06 ####[facility] LABIA [id number] [place] [address] [place] Anion gap [Moles/Vol] 12 mmol/L Normal 8-15 [facility] Comment on above: Order Comment: Speci men Type: BLOOD SPECIMENOrdering Facility: [facility] Address: [address] [place] [address] Performed By: #### 2 4323-8, 4-7, 3, 2132-06 ####[facility] LABIA [id number] [place] [address] [place] AST [Catalytic activity/Vol] 20 U/L Normal 13-35 [facility] Comment on above: Order Comment: Speci men Type: BLOOD SPECIMENOrdering Facility: [facility] Address: [address] [place] [address] Performed By: #### 2 4323-8, 3024-7, 3, 2132-06 ####[facility] LABCLIA [id number] [address] [address] [place] Bilirubin [Mass/Vol] 0.2 mg/dL Normal 0.2-1.3 [facility] Comment on above: Order Comment: Speci men Type: BLOOD SPECIMENOrdering Facility: [facility] Address: [address] [place] [address] Performed By: #### 2 4323-8, 3024-7, 3, 2132-06 ####[facility] LABCLIA [id number] [facility] CENTERK [address] [address] [place] Calcium [Mass/Vol] 9.7 mg/dL Normal 8.5-10.2 [facility] Comment on above: Order Comment: Speci men Type: BLOOD SPECIMENOrdering Facility: [facility] Address: [address] [place] [address] Performed By: #### 2 4323-8, 3023-7, 3, 2132-06 ####[facility] LABCLIA [id number] [address] [address] [place] Chloride [Moles/Vol] 103 mmol/L Normal 98-107 [facility] Comment on above: Order Comment: Speci men Type: BLOOD SPECIMENOrdering Facility: [facility] Address: [address] [place] [address] Performed By: #### 2 4323-8, 3023-7, 3015-12, 2132-06 ####[facility] LABCLIA [id number] [facility] [address] [address] [place] CO2 [Moles/Vol] 21 mmol/L Low 22-30 [facility] Comment on above: Order Comment: Speci men Type: BLOOD SPECIMENOrdering Facility: [facility] Address: [address] [place] [address] Performed By: #### 2 4323-8, 3024-7, 3, 2132-06 ####[facility] LABCLIA [id number] [facility] [address] [place] [address] [place] Creatinine [Mass/Vol] 0.71 mg/dL Normal 0.58-0.96 [facility] Comment on above: Order Comment: Margoth nuñez Type: BLOOD SPECIMENOrdering Facility: [facility] Address: [address] [place] [id number] Performed By: #### 2 4323-8, 3024-7, 6-3, 2132-06 ####[facility] LABCLIA [id number] [address] [address] [place] eGFRcr SerPlBld CKD-EPI 2020 120 mL/min/1.73m??? Normal >=60 [facility] Comment on above: Order Comment: Margoth nuñez Type: BLOOD SPECIMENOrdering Facility: [facility] Address: [address] [place] [address] Result Comment: Honey mated Glomerular Filtration Rate (eGFR) is calculated using the 2020 CKD-EPI creatinine equation. This equation utilizes serum creatinine, sex, and age as parameters. The creatinine assay has traceable calibration to isotope dilution-mass spectrometry. Refer to KDIGO guidelines for clinical interpretation. In patients with unstable renal function, e.g. those with acute kidney injury, the eGFR may not accurately reflect actual GFR. Performed By: #### 2 4323-8, 3024-7, 3015-3, 2132-06 ####[facility] LABCLIA [id number] [address] [address] [place] Glucose [Mass/Vol] 95 mg/dL Normal 74-99 [facility] Comment on above: Order Comment: Margoth nuñez Type: BLOOD SPECIMENOrdering Facility: [facility] Address: [address] [id number] Result Comment: The [place] Diabetes Association (ADA) provides guidance for cutoff values for fasting glucose and random glucose. The ADA defines fasting as no caloric intake for at least 8 hours. Fasting plasma glucose results between 100 to 125 mg/dL indicate increased risk for diabetes (prediabetes). Fasting plasma glucose results greater than or equal to 126 mg/dL meet the criteria for diagnosis of diabetes. In the absence of unequivocal hyperglycemia, results should be confirmed by repeat testing. In a patient with classic symptoms of hyperglycemia or hyperglycemic crisis, random plasma glucose results greater than or equal to 200 mg/dL meet the criteria for diagnosis of diabetes. Reference: Standards of Medical Care in Diabetes 2016, [place] [employer] Association. Diabetes Care. 2016.39(Suppl 1). Performed By: #### 2 4323-8, 4-7, 3015-3, 2132-06 ####[facility] LABCLIA [id number] [facility] [address] [address] [place] Potassium [Moles/Vol] 4.3 mmol/L Normal 3.7-5.1 [facility] Comment on above: Order Comment: Speci men Type: BLOOD SPECIMENOrdering Facility: [facility] Address: [address] [place], [place] [id number] Performed By: #### 2 4323-8, 7, 3015-12, 2132-06 ####[facility] LABCLIA [id number] [address] [address] [place] Protein [Mass/Vol] 7.3 g/dL Normal 6.3-8.0 [facility] Comment on above: Order Comment: Speci men Type: BLOOD SPECIMENOrdering Facility: [facility] Address: [address] [place] [address] Performed By: #### 2 4323-8, 7, 3015-12, 2132-06 ####[facility] LABCLIA [id number] [address] [address] [place] Sodium [Moles/Vol] 136 mmol/L Normal 136-144 [facility] Comment on above: Order Comment: Speci men Type: BLOOD SPECIMENOrdering Facility: [facility] Address: [address] [place] [address] Performed By: #### 2 4323-8, 7, 3, 2132-06 ####[facility] LABCLIA [id number] [facility] [address] [address] [place] Urea nitrogen [Mass/Vol] 16 mg/dL Normal 7-21 [facility] Comment on above: Order Comment: Speci men Type: BLOOD SPECIMENOrdering Facility: [facility] Address: [facility] [place] [address] Performed By: #### 2 4323-8, 3024-7, 3016-3, 9 ####[facility] LABCLIA [id number] [address] [id number] [place] No Panel Informationon 05-08 Interpretation and review of laboratory results Normal [facility] T4 FREE/FREE THYROXINEon Free T4 [Mass/Vol] 0.9 ng/dL 0.9 - 1.7 ng/dL [facility] T4 Free SerPl-mCncon 025 Free T4 [Mass/Vol] 0.9 ng/dL Normal 0.9-1.7 [facility] Comment on above: Order Comment: Speci men Type: BLOOD SPECIMENOrdering Facility: [facility] Address: [facility] [place] [address] Performed By: #### 2 4323-8, 3024-7, 3016-3, 9 ####[facility] LABCLIA [id number] [address] [id number] [place] THYROID STIMULATING HORMONEo n 05-08-2025 TSH Qn 2.61 m[IU]/L [facility] Comment on above: If the patient is pr egnant, TSH reference range varies by gestational period: First Trimester (weeks 9-12): 0.180-2.990 mIU/L Second Trimester: 0.110-3.980 mIU/L Third Trimester: 0.480-4.710 mIU/L Sung Cordero et al. A Practical Approach for the Verifications and Determination of Site- and Trimester-Specific Reference Intervals for Thyroid Function tests in . Thyroid, 2019:29:3:412-420. Feng Velasco et al. 2017 Guidelines of the [place] Thyroid Association for the Diagnosis and Management of Thyroid Disease during and the . Thyroid, 2017:27:3:315-389. TSH SerPl-aCncon 05-08-2025 TSH Qn 2.610 m[IU]/L Normal 0.270-4.200 [facility] Comment on above: Order Comment: Margoth nuñez Type: BLOOD SPECIMENOrdering Facility: [facility] Address: [address] [place] [address] [place] [address] Result Comment: If t he patient is , TSH reference range varies by gestational period: First Trimester (weeks 9-12): 0.180-2.990 mIU/L Second Trimester: 0.110-3.980 mIU/L Third Trimester: 0.480-4.710 mIU/L Sung Cordero et al. A Practical Approach for the Verifications and Determination of Site- and Trimester-Specific Reference Intervals for Thyroid Function tests in . Thyroid, 2019:29:3:412-420. Feng Velasco, et al. 2017 Guidelines of the [place] Thyroid Association for the Diagnosis and Management of Thyroid Disease during and the . Thyroid, 2017:27:3:315-389. Performed By: #### 2 4323-8, 3024-7, 6-3, 2132-06 ####[facility] LABIA [id number] [place] [address] [place] VITAMIN B12on 05-08-2025 Cobalamin (Vitamin B12) [Mass/Vol] 449 pg/mL 232 - 1245 pg/mL [facility] Vit B12 SerPl-mCncon 025 Cobalamin (Vitamin B12) [Mass/Vol] 449 pg/mL Normal 232-1245 [facility] Comment on above: Order Comment: Margoth nuñez Type: BLOOD SPECIMENOrdering Facility: [facility] Address: [address] [place] [address] Performed By: #### 2 4323-8, 3024-7, 3016-3, 9 ####[facility] LABIA [id number] [place] [address] [place] CNOVon 04-24-2025 CNOV Office Visit (WOUCA) ----- [place] ([id number]) 2000 F [place] Date Time Provider Department 04/24/25 6:00 PM BINTA HATHAWAY During your visit today, we recorded the following information about you: Temperature Pulse Respiration Blood pressure 98.6 degrees 65/minute 18/minute 112/76 Weight 88.4 kg Binta Hathaway, TAVO.UNDERGROUND UTILITY LOCATOR 04/24/2025 7:15 PM Signed [facility] Subjective Jackson Ny is a 24 year old female. Patient presents with: Vomiting: Vomiting x 1 day HPI Emesis: - Emesis x3-4 episodes this morning. - Denies diarrhea. - Reports feeling "hungover" every morning for the past few days, with symptoms resolving by midday. - Denies similar episodes in the past. - Admits to poor water intake, consuming mostly sugary drinks. 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 Depression and Anxiety: - Taking sertraline, prazosin, and Seroquel. Hypothyroidism: - Taking levothyroxine. Herpes Simplex Virus: - Taking Valtrex daily to prevent outbreaks. PAST MEDICAL HISTORY Diagnosis Date Abnormal Pap smear of cervix 07/2019 LSIL Bacterial vaginosis Chlamydia infection 07/2019 Exercise-induced asthma (HCC) Generalized anxiety disorder Herpes simplex virus (HSV) infection Herpes, genital 2024 Infectious mononucleosis 01/2017 Trichimoniasis PAST SURGICAL HISTORY Procedure Laterality Date NONE ALLERGIES Amoxicillin and Lavender (Lavandula Angustifolia) MEDICATIONS prazosin (MINIPRESS) 1 mg cap Take 1 mg by mouth two times a day. QUEtiapine (SEROQUEL) 50 mg tablet Take 50 mg by mouth daily at bedtime. sertraline (ZOLOFT) 50 mg tablet Take 50 mg by mouth once daily. levothyroxine (SYNTHROID) 75 mcg tablet Take 1 tablet by mouth once daily. valACYclovir (VALTREX) 1 gram tablet Take 1 tablet by mouth once daily. etonogestrel (NEXPLANON) 68 mg impl subdermal implant 68 mg by SUBDERMAL route one time only. FAMILY HISTORY Problem Relation Age of Onset No Known Problems Father No Known Problems Sister No Known Problems Sister No Known Problems Brother No Known Problems Brother No Known Problems Brother No Known Problems Brother No Known Problems Brother No Known Problems Brother No Known Problems Brother Stroke Maternal Grandfather other (Asthma) Other Grandparent Social History Tobacco Use Smoking status: Former Current packs/day: 0.25 Average packs/day: 0.3 packs/day for 0.5 years (0.1 ttl pk-yrs) Types: Cigarettes Smokeless tobacco: Never Vaping Use Vaping status: current everyday user Substances: Nicotine, Flavoring Devices: Disposable Substance Use Topics Alcohol use: No Drug use: Not Currently Frequency: 7.0 times per week Types: Marijuana Review of Systems Constitutional: (+) malaise Gastrointestinal: (+) vomiting, (-) diarrhea Objective BP 112/76 Pulse 65 Temp 37 ?C (98.6 ?F) (Tympanic) Resp 18 Wt 88.4 kg (194 lb 14.2 oz) LMP 03/18/2025 (Approximate) SpO2 100% BMI 31.46 kg/m? Physical Exam General: Well-appearing, no acute distress. CV: Regular rate and rhythm. Resp: Lungs clear to auscultation bilaterally. Abd: Soft, non-tender, bowel sounds present in all quadrants. { 1. Nausea and vomiting, unspecified vomiting type (R11.2) - Experienced 3-4 episodes of emesis this morning; symptoms have resolved. - No associated diarrhea; denies similar previous episodes. - Physical examination reveals well-nourished, well-developed female in no acute distress. HEENT is normocephalic, atraumatic. Abdomen is soft and non-tender with normal bowel sounds. Lungs are clear to auscultation bilaterally. Cardiac exam reveals regular rate and rhythm. Skin examination shows no lesions. - Advised to increase hydration, particularly water intake, to prevent dehydration. - Monitor for any recurrence of symptoms. 2. Encounter to obtain excuse from work (Z02.89) - Provided a work excuse note for today. - Cleared to return to work tomorrow. and Recording using ambient Buzzient software for draft documentation of the visit was discussed with the patient/authorized primary care sales representative; all questions welcomed and answered. Patient/authorized primary care sales representative agreed to proceed MDM Procedures Allergies As of Date: 04/24/2025 Noted Allergy Reaction AMOXICILLIN 11/24/2013 7 - Swelling LAVENDER (LAVANDULA ANGUSTIFOLIA) 03/12/2023 2 - Rash Date Reviewed: 04/24/2025 Reviewed by: Ene Loweyr LPN - Fully Assessed Reason for Visit: Vomiting [120] Cmt: Vomiting x 1 day Primary Visit Diagnosis:Nausea and vomiting, unspecified vomiting type [R11.2] Other Visit Diagnosis:Encounter to obtain excuse from work [Z02.89] Prescriptions as of 04/24/2025 - prazosin (MINIPRESS) 1 mg cap Take 1 mg by mouth two times a day. - QUEtiapine (SEROQUEL) 50 mg tablet Take 5 (more content not included)... Normal [facility] Emergency Department Summary on 04-15-2025 Emergency Department Summary [facility] Medical Records Department [address] [place] [address] Emergency Department Summary 04/15/25 MR#: [id number] Acct: [id number] Name: [place] Rep #: [id number] : 2000 24 From: Tremayne Quiñonez MD PCP: Care Physician,No Primary Status:DEP ER Location: ED ADDENDUM by Dr. Tremayne Quiñonez MD on 04/15/25 at 2007 Rapid strep came back I checked and it 8:05 PM. It is negative. I will call the patient and notify her of that. 04/15/252007 Cosigner Signature (if applicable): cc: No Primary Care Physician * Signed HPI HPI - URI History of Present Illness Chief Complaint: Sore Throat Detail of Chief Complaint: Sore throat this morning. Able to swallow. No fever. Mild nonproductive Informant: patient Onset/Context/Timing Onset: Today and Hours Context: Gradual Onset Timing: Continuous Current Severity: Mild Maximum Severity: Mild Associated Symptoms Associated Symptoms: Positive for Nonproductive cough Narrative Narrative: Healthy 24-year-old female complaining of mild sore throat this morning. Nonproductive cough. No vomiting or diarrhea. No fever. Able to swallow. Prior similar symptoms: Yes Recent Illness/Hospitalization: No ROS ROS ED ROS Narrative Mild sore throat. Constitutional Constitutional ED: Denies chills or fever(s) Eyes Eyes: Denies blurry vision ENT ENT ED: Reports sore throat; Denies ear pain Cardiovascular Cardiovascular: Denies chest pain Respiratory/Chest Respiratory/Chest: Reports cough Gastrointestinal Gastrointestinal: Denies abdominal pain Genitourinary Genitourinary ED: Denies dysuria or hematuria Musculoskeletal Musculoskeletal: Denies arthralgias or back pain Integumentary Denies abscess Neurologic Neurologic: Denies headache(s) Psychiatric Psychiatric: Denies anxiety Endocrine Endocrinology: Denies cold intolerance Hematologic/Lymphatic Hematologic/Lymphatic: Denies easy bleeding, easy bruising or lymphadenopathy Allergic/Immunologic Allergic/Immunologic ED: Denies mouth swelling, tongue swelling or urticaria PFSH PFSH Medical History Nexplanon insertion Acute blood loss anemia atony of uterus with hemorrhage Severe preeclampsia Trauma PTSD (post-traumatic stress disorder) Anxiety Depression Pre-eclampsia History of pneumonia History of substance abuse Asthma Home Medications ???Medication ???Instructions ???Recorded ???Last Taken ???Type vit no.95-ferrous 1 tab PO DAILY 03/23/24 Unknown Hi story fumarate 28 mg-folic acid 800 mcg tablet () azithromycin 250 mg tablet 250 mg PO .COMPLEX #12 tabs Unknown Rx pantoprazole 20 mg tablet,delayed 20 mg PO QDAY 05/03/24 Unknown Hi story release ferrous sulfate 325 mg (65 mg 325 mg PO QODAY 05/06/24 Unknown H istory iron) tablet (iron) ferrous sulfate 325 mg (65 mg 325 mg PO QODAY 60 days #30 tabs 0 05/10/24 Unknown Rx iron) tablet (FeroSul) ibuprofen 600 mg tablet 600 mg PO Q6H PRN Pain 20 days #60 05/10/24 Unknown Rx TABLETS labetalol 200 mg tablet 200 mg PO BID 10 days #20 tabs Unknown Rx Allergy/AdvReac Type Severity Reaction Status Date / Time amoxicillin (Amoxicillin) Allergy NOT SURE, Verified 04/15/25 17:30 WAS A BABY lavender (Lavandula Allergy Rash Verified 04/15/25 17:30 angustifolia) Family History Mother Depression Substance abuse Brother Depression Grandfather Substance abuse Social History Smoking Status: Current every day smoker tobacco type: e-cigarettes Tobacco: How many years used: 4 alcohol intake: former year quit: 2016 substance use type: former substance user 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 use: 04/09/18 and methamphetamine what type of physical activity do you participate in: yoga, aerobics and weight training frequency: 1-2 times per week EXAM Physical Exam Narrative Exam Narrative: 24-year-old female vital signs stable afebrile. Pulse ox 90% on room air no hypoxia. No distress. H EENT exam appears Ramming Actilite. TMs normal bilaterally. Posterior pharynx normal. No erythema or exudate. No peritonsillar abscess. No trouble swallowing or breathing. No drooling or stridor. Neck nontender no lymphadenopathy. Lungs clear to auscultation bilaterally. Heart regular rhythm no murmur. Rate about 90. Chest wall ribs nontender. Abdomen soft nontender. Moving all 4 extremities. Nontender no edema no cords. Neurologically she is awake alert no focal motor deficits. Benign exam. Const Vital Signs: 04/15/25 17:29 Temperature 97.1 F L Temperature Source Temporal Pulse Rate 92 Respiratory Rate 14 (more content not included)... Normal [facility] M100.677on 04-15-2025 M100.677 S pyo rRNA Throat Ql Probe Normal Reference Range = Negative S pyo rRNA Throat Ql Probe GeneXpert Instrument, PCR method Rapid Strep A PCR NEGATIVE Normal [facility] Comment on above: Performed By: #### M [id number] #### [facility] [address] [place], [address] CNOVon 03-22-2025 CNOV Office Visit (OBGYWM ) ----- [place] ([id number]) 2000 F [place] Date Time Provider Department 03/22/25 3:20 PM KARINA KWONG During your visit today, we recorded the following information about you: Blood pressure Weight Last Period 116/74 88.9 kg 03/18/25 Karina Kwong MD 03/22/2025 3:34 PM Signed Giorgio is a 24 year old who presents for Nexplanon removal for irregular periods. UNIVERSAL PROTOCOL / SAFETY CHECKLIST Procedure to be Performed: Nexplanon removal Sign In: A Moment of CARE was completed. Appropriate PPE (Personal Protective Equipment) worn by all providers involved with the procedure. Special equipment not required. Patient/Surrogate Stated/Verified: Patient name, Date of , Relevant allergies, and The intended procedure Time Out: Relevant labs, photos, and/or imaging studies have been reviewed. Intended patient and procedure match the source document(s) (e.g. consent, HANDP, associated studies [imaging, pathology]) match the intended patient and procedure. Consent obtained and matches the intended procedure. Yes. Correct side/site has been marked and visible. Medications required for this procedure are verified. Fire risk assessed and is not applicable. Implants: are not applicable. Sign Out: Specimens are all correctly labeled and sent. All instruments, equipment, possible retained foreign bodies are accounted for. Yes. The post-procedure plan of care has been communicated to the patient or surrogate. TECHNIQUE: Patient placed in supine position with left arm bent at the elbow and placed over the head. Skin cleansed with betadine. 2 mL of 1% lidocaine injected subQ along insertion site. Scalpel used to made a 5mm stab incision superficially at distal end of Nexplanon. Device removed under sterile technique with a small hemostat. Sterile pressure dressing applied. AANDP: 24 year old here for Nexplanon removal Nexplanon removed intact without difficulty. Karina Kwong MD Referring Provider: BINTA CARCAMO [[id number]] Allergies As of Date: 03/22/2025 Noted Allergy Reaction AMOXICILLIN 11/24/2013 7 - Swelling LAVENDER (LAVANDULA ANGUSTIFOLIA) 03/12/2023 2 - Rash Date Reviewed: 03/22/2025 Reviewed by: Karina Kwong MD - Fully Assessed Reason for Visit: Nexplanon removal [Other] Primary Visit Diagnosis:Nexplanon removal [Z30.46] Prescriptions as of 03/22/2025 - prazosin (MINIPRESS) 1 mg cap Take 1 mg by mouth two times a day. - QUEtiapine (SEROQUEL) 50 mg tablet Take 50 mg by mouth daily at bedtime. - sertraline (ZOLOFT) 50 mg tablet Take 50 mg by mouth once daily. - levothyroxine (SYNTHROID) 75 mcg tablet Take 1 tablet by mouth once daily. - valACYclovir (VALTREX) 1 gram tablet Take 1 tablet by mouth once daily. - etonogestrel (NEXPLANON) 68 mg impl subdermal implant 68 mg by SUBDERMAL route one time only. Problem List As Of Date 03/22/2025 Noted Resolved ADHD (attention deficit hyperactivity disorder)*06/02/2014 Acute hepatitis [B17.9] 01/11/2021 Bipolar disorder (HCC) [F31.9] 06/03/2018 History of drug abuse (HCC) [F19.11] 01/11/2021 06/24/2024 with uncertain dates in first trimest*10/22/2023 01/05/2024 Methamphetamine use (HCC) [F15.10] 10/22/2023 Marijuana use during [O99.320, F12.90]10/22/2023 06/24/2024 Tobacco smoking complicating in third*10/22/2023 06/24/2024 Exercise-induced asthma [J45.990] 10/22/2023 06/24/2024 HSV (herpes simplex virus) infection [B00.9] 10/22/2023 Generalized anxiety disorder [F41.1] 10/22/2023 06/24/2024 History of trichomoniasis [Z86.19] 10/22/2023 Allergy to amoxicillin [Z88.0] 10/22/2023 06/24/2024 Nausea and vomiting during [O21.9] 10/22/2023 01/05/2024 History of posttraumatic stress disorder (PTSD)*10/22/2023 06/24/2024 Rh negative state in antepartum period [O26.899*11/04/2023 06/24/2024 Gastroesophageal reflux disease without esophag*03/16/2024 Supervision of high risk in third tri*03/16/2024 06/24/2024 Elevated glucose tolerance test [R73.09] 03/17/2024 06/24/2024 Anemia during in third trimester [O99*03/17/2024 06/24/2024 Excessive growth affecting management of *04/04/2024 06/24/2024 BP check [Z01.30] 05/11/2024 06/24/2024 Pre-eclampsia in third trimester [O14.93] 05/11/2024 06/24/2024 Elevated blood pressure reading [R03.0] 05/11/2024 06/24/2024 Encounter Status:Closed by KARINA KWONG on 03/22/25 [facility] CNOVon 03-10-2025 CNOV Office Visit (ENWSTR ) ----- [place] ([id number]) 2000 F [place] Date Time Provider Department 03/10/25 2:40 PM RUTHIE LUNA During your visit today, we recorded the following information about you: Temperature Pulse Blood pressure Weight 98.6 degrees 95/minute 110/70 86.9 kg Height Last Period 1.676 m 02/24/25 Ruthie Luna MD 03/12/2025 11:15 PM Signed [facility] Follow up note CONSULTING PROVIDER: Reagan Campos APRN. LORI (OBGYN) My final recommendations will be communicated back to the requesting provider by way of shared Medical record or a letter via [place] mail Subjective: Jackson Ny is a 24 year old female here to establish care for evaluation of hypothyroidism. Initial visit on 11/22/24 MARY ANNE 12/30/24 As per prior documentation, She is 7 months now, post her first . Post , she had PPH, and has not stopped for 4 months so thyroid labs were checked last month. This is the first time ever thyroid function was ever checked She stopped breast feeding few months ago, as she had to use antibiotics for STD Interval history: 03/10/25 She reports improvement in fatigue/tiredness Menstrual irregularities: has frequent or excess bleeding since delivery- but has seen OBGYN and it was indicated that nexplanon might be contributing to irregular cycles, recommendation was to remove it, which patient is considering ash as she is not sexually active now and is not planning on use of any alternative contraception either post removal Family history: no autoimmune or thyroid issues REVIEW OF SYSTEMS: 10 point ROS was reviewed and negative unless indicated in the HPI ALLERGIES: ALLERGIES Allergen Reactions Amoxicillin Swelling Lavender (Lavandula* Rash MEDICATIONS: Current Outpatient Medications on File Prior to Visit Medication Sig Levonorgestrel-Ethinyl Estrad (AVIANE) 0.1mg - 20mcg per tablet Take 1 tablet by mouth once daily. etonogestrel (NEXPLANON) 68 mg impl subdermal implant 68 mg by SUBDERMAL route one time only. fluticasone (FLONASE) 50 mcg/actuation nasal spray Use 2 Sprays in each nostril once daily. Rinse mouth after use. (Patient not taking: Reported on 11/22/2024) No current facility-administered medications on file prior to visit. PAST MEDICAL HISTORY: PAST MEDICAL HISTORY Diagnosis Date Abnormal Pap smear of cervix 07/2019 LSIL Bacterial vaginosis Chlamydia infection 07/2019 Exercise-induced asthma (HCC) Generalized anxiety disorder Herpes simplex virus (HSV) infection Herpes, genital 2024 Infectious mononucleosis 01/2017 Trichimoniasis PAST SURGICAL HISTORY: PAST SURGICAL HISTORY Procedure Laterality Date NONE FAMILY HISTORY: FAMILY HISTORY Problem Relation Age of Onset No Known Problems Father No Known Problems Sister No Known Problems Sister No Known Problems Brother No Known Problems Brother No Known Problems Brother No Known Problems Brother No Known Problems Brother No Known Problems Brother No Known Problems Brother Stroke Maternal Grandfather other (Asthma) Other Grandparent SOCIAL HISTORY: Social History Tobacco Use Smoking status: Former Current packs/day: 0.25 Average packs/day: 0.3 packs/day for 0.5 years (0.1 ttl pk-yrs) Types: Cigarettes Smokeless tobacco: Never Vaping Use Vaping status: current everyday user Substances: Nicotine, Flavoring Devices: Disposable Substance Use Topics Alcohol use: No Drug use: Not Currently Frequency: 7.0 times per week Types: Marijuana PHYSICAL EXAM: BP 110/70 (BP Site: Right Arm, BP Position: Sitting, BP Cuff Size: Regular Adult) Pulse 95 Temp 37 ?C (98.6 ?F) (Temporal Artery) Ht 167.6 cm (5' 6") Wt 86.9 kg (191 lb 9.6 oz) LMP 02/24/2025 (Approximate) SpO2 98% BMI 30.93 kg/m? Unchanged from prior visit one month ago General: Alert and oriented x3, no acute distress Eyes: Anicteric sclera. Extraocular movements are intact. Neck supple, no cervical lymphadenopathy Thyroid: slight enlargement of thyroid in size, normal texture, no palpable nodules Lungs: Breathing unlabored on room air Heart regular rate and rhythm Musculoskeletal: Muscular strength intact, No joint swelling, deformity, or tenderness Neuro: Gait normal. No focal findings Abdomen:Normal abdominal sounds, non tender to palpation, no tremors of outstretched arms Extremities: without edema, no deformities Skin: no rashes/ erythema LABS: TSH Date Value Ref Range Status 12/30/2024 2.720 0.270 - 4.200 mIU/L Final Comment: If the patient is , TSH reference range varies by gestational period: First Trimester (weeks 9-12): 0.180-2.990 mIU/L Second Trimester: 0.110-3.980 mIU/L Third Trimester: 0.480-4.710 mIU/L Sung Cordero et al. A Practical Approach for the Tamera (more content not included)... Normal [facility] 03-10-2025 [facility] (OB[facility]WM) ----- [place] ([id number]) 2000 F [facility] Date Time Provider Department 03/10/25 KARINA KWONG During your visit today, we recorded the following information about you: Em Carter 03/10/2025 3:22 PM Signed PT requesting appt for nexplanon removal. Appt has been scheduled please place order to attatch to appt. Thank you Binta Carcamo APRN.CNM 03/10/2025 4:35 PM Signed Order signed. Binta Carcamo APRN.CNM Allergies As of Date: 03/10/2025 Noted Allergy Reaction AMOXICILLIN 11/24/2013 7 - Swelling LAVENDER (LAVANDULA ANGUSTIFOLIA) 03/12/2023 2 - Rash Date Reviewed: 03/10/2025 Reviewed by: Marii Low OCCA - Fully Assessed Reason for Visit: Orders [681] Primary Visit Diagnosis:Nexplanon removal [Z30.46] Order(s):NEXPLANON REMOVAL [[id number]] Order #: [id number] Prescriptions as of 03/10/2025 - prazosin (MINIPRESS) 1 mg cap Take 1 mg by mouth two times a day. - QUEtiapine (SEROQUEL) 50 mg tablet Take 50 mg by mouth daily at bedtime. - sertraline (ZOLOFT) 50 mg tablet Take 50 mg by mouth once daily. - levothyroxine (SYNTHROID) 75 mcg tablet Take 1 tablet by mouth once daily. - valACYclovir (VALTREX) 1 gram tablet Take 1 tablet by mouth once daily. - etonogestrel (NEXPLANON) 68 mg impl subdermal implant 68 mg by SUBDERMAL route one time only. Problem List As Of Date 03/10/2025 Noted Resolved ADHD (attention deficit hyperactivity disorder)*06/02/2014 Acute hepatitis [B17.9] 01/11/2021 Bipolar disorder (HCC) [F31.9] 06/03/2018 History of drug abuse (HCC) [F19.11] 01/11/2021 06/24/2024 with uncertain dates in first trimest*10/22/2023 01/05/2024 Methamphetamine use (HCC) [F15.10] 10/22/2023 Marijuana use during [O99.320, F12.90]10/22/2023 06/24/2024 Tobacco smoking complicating in third*10/22/2023 06/24/2024 Exercise-induced asthma [J45.990] 10/22/2023 06/24/2024 HSV (herpes simplex virus) infection [B00.9] 10/22/2023 Generalized anxiety disorder [F41.1] 10/22/2023 06/24/2024 History of trichomoniasis [Z86.19] 10/22/2023 Allergy to amoxicillin [Z88.0] 10/22/2023 06/24/2024 Nausea and vomiting during [O21.9] 10/22/2023 01/05/2024 History of posttraumatic stress disorder (PTSD)*10/22/2023 06/24/2024 Rh negative state in antepartum period [O26.899*11/04/2023 06/24/2024 Gastroesophageal reflux disease without esophag*03/16/2024 Supervision of high risk in third tri*03/16/2024 06/24/2024 Elevated glucose tolerance test [R73.09] 03/17/2024 06/24/2024 Anemia during in third trimester [O99*03/17/2024 06/24/2024 Excessive growth affecting management of *04/04/2024 06/24/2024 BP check [Z01.30] 05/11/2024 06/24/2024 Pre-eclampsia in third trimester [O14.93] 05/11/2024 06/24/2024 Elevated blood pressure reading [R03.0] 05/11/2024 06/24/2024 Encounter Status:Closed by ALYSON BARKSDALE on 03/10/25 [facility] CNOVandressa 02-22-2025 CNOV Office Visit (OBGYWM ) ----- [place] ([id number]) 2000 F [facility] Date Time Provider Department 02/22/25 1:45 PM BINTA CARCAMO OBGYWM During your visit today, we recorded the following information about you: Blood pressure Weight Last Period 118/60 85.4 kg 02/06/25 Binta Carcamo APRN.CNM 02/22/2025 2:13 PM Signed Obstetrics and Gynecology [place] EXAMINATION SUPERVISOR Visit Subjective Recording using ambient Buzzient software for draft documentation of the visit was discussed with the patient/authorized primary care sales representative; all questions welcomed and answered. Patient/authorized primary care sales representative agreed to proceed CHIEF COMPLAINT: Follow up HPI: The patient is a 24-year-old female presenting for a follow-up regarding bleeding and irregular menses. The patient reports a history of frequent vaginal bleeding following the insertion of Nexplanon on 05/08/2024, immediately after the of her son on 05/07/2024. She experienced continuous bleeding for approximately 3 weeks, requiring frequent use of pads and tampons. In October, she was evaluated and started on a control pill, which she took for about a month but discontinued after initiating levothyroxine prescribed by endocrinology in November due to elevated thyroid levels. Since starting levothyroxine, the patient notes improvement in bleeding but describes her periods as irregular, with varying intervals between cycles. She continues to have the Nexplanon implant in place and denies major abdominal pain, chest pain, cephalalgia, visual disturbances, or severe leg pain. Additionally, she reports experiencing intermittent pruritus and discomfort in the external genital area, which began a few weeks ago. She denies any sexual activity, new partners, or concerns about sexually transmitted infections. HISTORY: OB History Gravida1 Para1 Term1 Preterm0 AB0 Living1 SAB0 IAB0 Ectopic0 Multiple0 Live Births1 Guest House Manager History LMP: 02/06/2025 (Approximate), Implant Age at Menarche: Age at First : Age at Menopause: Guest House Manager History Comments: Sexual Activity: Yes; Male Contraception: Implant PAST MEDICAL HISTORY Diagnosis Date Abnormal Pap smear of cervix 07/2019 LSIL Bacterial vaginosis Chlamydia infection 07/2019 Exercise-induced asthma (HCC) Generalized anxiety disorder Herpes simplex virus (HSV) infection Herpes, genital 2024 Infectious mononucleosis 01/2017 Trichimoniasis PAST SURGICAL HISTORY Procedure Laterality Date NONE FAMILY HISTORY Problem Relation Age of Onset No Known Problems Father No Known Problems Sister No Known Problems Sister No Known Problems Brother No Known Problems Brother No Known Problems Brother No Known Problems Brother No Known Problems Brother No Known Problems Brother No Known Problems Brother Stroke Maternal Grandfather other (Asthma) Other Grandparent Social History Tobacco Use Smoking status: Former Current packs/day: 0.25 Average packs/day: 0.3 packs/day for 0.5 years (0.1 ttl pk-yrs) Types: Cigarettes Smokeless tobacco: Never Vaping Use Vaping status: current everyday user Substances: Nicotine, Flavoring Devices: Disposable Substance Use Topics Alcohol use: No Drug use: Not Currently Frequency: 7.0 times per week Types: Marijuana Current Outpatient Medications Medication Sig prazosin (MINIPRESS) 1 mg cap Take 1 mg by mouth two times a day. QUEtiapine (SEROQUEL) 50 mg tablet Take 50 mg by mouth daily at bedtime. sertraline (ZOLOFT) 50 mg tablet Take 50 mg by mouth once daily. levothyroxine (SYNTHROID) 75 mcg tablet Take 1 tablet by mouth once daily. etonogestrel (NEXPLANON) 68 mg impl subdermal implant 68 mg by SUBDERMAL route one time only. valACYclovir (VALTREX) 1 gram tablet Take 1 tablet by mouth once daily. No current facility-administered medications for this visit. ALLERGIES Allergen Reactions Amoxicillin Swelling Lavender (Lavandula* Rash REVIEW OF SYSTEMS: Head: (-) headaches Eyes: (-) eye problems Cardiovascular: (-) chest pain Gastrointestinal: (-) abdominal pain Genitourinary: (+) irregular menses, (+) vaginal itching Musculoskeletal: (-) severe leg pain Objective SENSITIVE EXAM: Sensitive exam not performed. PHYSICAL EXAM: BP 118/60 Wt 188 lb 3.2 oz (85.4kg) LMP 02/06/2025 General: Well-appearing, no acute distress. Assessment AND Plan ASSESSMENT AND PLAN: 1. Hypothyroidism, unspecified type (E03.9) Diagnosed in November with elevated thyroid levels. Special Procedure Tech initiated levothyroxine therapy. Continue levothyroxine as prescribed by printer assistant 2. Vulvar pruritus (L29.2) Intermittent pruritus, no current sexual activity or new partners. Recent evaluation for yeast infection and BV was negative. - Recommended boric acid suppositories or wash from [employer]. - Advised daily (more content not included)... Normal [facility] BACTERIAL VAGINOSIS NAATon 0 4- Lactobacillus crispatus+gasseri+pierre senii + Gardnerella vaginalis + Atopobium vaginae rRNA JOSE+probe Ql (Vag fld) Not detected Normal Not detected [facility] Comment on above: Order Comment: Speci men Type: SWABOrdering Facility: [facility] Address: [address] [place] [address] Performed By: #### B VAMP, 98038-9 ####[facility] LABCLIA [id number] [place] [address] [place] C. trachomatis+N. gonorrhoea e DNA JOSE+probe Ql (Unsp spec)on 01-12-2025 C. trachomatis rRNA JOSE+probe Ql (Unsp spec) Not detected Normal Not detected [facility] Comment on above: Order Comment: Speci men Type: SWABOrdering Facility: [facility] Address: [address] [place] [address] Performed By: #### B VAMP, 93366-7 ####[facility] LABCLIA [id number] [place] [address] [place] N. gonorrhoeae rRNA JOSE+probe Ql (Unsp spec) Not detected Normal Not detected [facility] Comment on above: Order Comment: Speci men Type: SWABOrdering Facility: [facility] Address: [address] [place] [address] Performed By: #### B VAMP, 25965-7 ####[facility] LABCLIA [id number] [place] [address] [place] DAX/TRICHOMONAS NAATon 0 01-12-2025 C. glabrata RNA JOSE+probe Ql (Vag fld) Not detected Normal Not detected [facility] Comment on above: Order Comment: Speci men Type: SWABOrdering Facility: [facility] Address: [address] [place] [address] Performed By: #### C VTV ####[facility] LABCLIA [id number] [place] [address] [place] Dax sp DNA JOSE+probe Ql (Vag fld) Not detected Normal Not detected [facility] Comment on above: Order Comment: Speci men Type: SWABOrdering Facility: [facility] Address: [address] [place] [address] Result Comment: The Dax species group target includes C. albicans, C. tropicalis, C. parapsilosis, and C. dubliniensis. Performed By: #### C VTV ####[facility] [id number] [address] T. vaginalis DNA JOSE+probe Ql (Unsp spec) Not detected Normal Not detected [facility] Comment on above: Order Comment: Speci men Type: SWABOrdering Facility: [facility] Address: [address] [place] [address] Performed By: #### C VTV ####[facility] [id number] [address] CNOVon 01-12-2025 CNOV Office Visit (OBGYWM ) ----- [place] ([id number]) 2000 F [facility] Date Time Provider Department 01/12/25 8:00 AM REAGAN CAMPOS OBGYWYuki During your visit today, we recorded the following information about you: Blood pressure Weight 112/60 83 kg Reagan Campos APRN.UNDERGROUND UTILITY LOCATOR 01/12/2025 8:29 AM Signed Transplant Immunologist offered: Patient declines. Goss Ynes Ny is a 24 year old female who presents for vaginal discharge and itching for 1 week(s). Has also been noticing recurrent genital herpes and would like suppression therapy. Vaginal discharge: scant amount, odorless, and brown. Itching: Yes Dyspareunia: No Fever/chills: No Abdominal pain: No Bladder: Negative for dysuria or frequency Bowel: No blood in stool, pain with BM, tarry stool, persistent diarrhea or constipation Any new sexual partners or concern for STD exposure: No Any history of STDs: chlamydia, GC, HSV, and trichomonas Does your partner have any new complaints: No Are you currently taking any medications to treat vaginitis: No Do you use feminine sprays, douches or deodorants: No Menstrual cycle: every 3 weeks and bleeds for a week. Contraception: Nexplanon Last pap: 2023, normal Past medical, surgical, social history, medications and allergies reviewed and updated. OBJECTIVE: SENSITIVE EXAM: The sensitive examination was discussed with the Patient or Patient's Authorized Surgical Instruments Inspector. As applicable, any other physician, advance practice provider, medical student, or other health professional student that will be observing or involved in the sensitive examination for educational or training purposes was discussed with the Patient or Authorized Surgical Instruments Inspector. The Patient or Authorized Surgical Instruments Inspector has agreed to proceed with the sensitive examination. (Sensitive examination includes inspection and/or palpation of the breasts, pelvis, prostate and anorectal regions). BP 112/60 Wt 183 lb (83.0kg) LMP 12/28/2024 GENERAL: Well developed, well nourished in no apparent distress PELVIC: external genitalia normal, normal Bartholin's glands, urethra, Mccomb's glands, no vulvar lesions, no cervical lesions, good vaginal support, physiologic discharge present, normal appearing perineal body and perianal region BIMANUAL: uterus normal size, shape and consistency, no adnexal masses, and non-tender. RECTOVAGINAL: deferred. ASSESSMENT/PLAN: 1. Vaginal discharge - ICD9: 623.5, ICD10: N89.8 (primary diagnosis) 2. Vaginal itching - ICD9: 698.1, ICD10: N89.8 - Cultures obtained 3. Recurrent genital herpes - ICD9: 054.10, ICD10: A60.00 - Check kidney function - Send suppressive therapy Reagan Campos APRN.UNDERGROUND UTILITY LOCATOR Medical Decision Making: Problems: Low: Acute, uncomplicated illness or injury Data: Unique test(s) ordered: 3+ Risk: Low: Low risk from testing/treatment Moderate: Drug management Medical Decision Making Level: 4 - Moderate Nohelia Oconnor MA 01/12/2025 8:13 AM Signed Minimizing irritation of the vulva (area around the vagina) Wear white cotton underwear. Avoid synthetic fabrics and tight clothing. Sleep wearing shorts or pajama bottoms without underwear. Shower as soon as possible after exercise. Avoid clothing detergents and soaps with perfumes or dyes. Use warm (not hot) water to wash the vulva and if you use soap use a product designed for sensitive skin (like Dove or Cetaphil). Do not douche or use creams/powders in the vulvar area unless instructed by your physician. If you must douche, use only plain warm water. Make sure the vulva is dry before dressing by patting dry with a towel. Avoid vigorous rubbing with the towel. You may want to use the blow dryer (on the cool setting only!) on the vulva. The most important way to let your body heal is by avoiding scratching. Many patients find it difficult to avoid scratching at night when they are most aware of the itchiness. You can try taking Benadryl just before bedtime. Some women find it helpful to wear cotton gloves to bed to avoid scratching at night. Allergies As of Date: 01/12/2025 Noted Allergy Reaction AMOXICILLIN 11/24/2013 7 - Swelling LAVENDER (LAVANDULA ANGUSTIFOLIA) 03/12/2023 2 - Rash Date Reviewed: 01/12/2025 Reviewed by: Reagan Campos APRN.UNDERGROUND UTILITY LOCATOR - Fully Assessed Reason for Visit: Vaginal Problem [117] Primary Visit Diagnosis:Vaginal discharge [N89.8] Other Visit Diagnoses:Vaginal itching [N89.8] Recurrent genital herpes [A60.00] Order(s):BACTERIAL VAGINOSIS NAAT [SQBVAMP] Order #: [id number] DAX/TRICHOMONAS NAAT [SQCVTV] Order #: [id number] COMPREHENSIVE METABOLIC PANEL [SQCMP] Order #: [id number] FUTURE GONORRHEA/CHLAMYDIA NAAT [SQGCCT] Order #: [id number] Prescriptions as of 01/12/2025 - levothyroxine (SYNTHROID) 75 mcg tablet Take 1 tablet by mouth once daily. - etonogestrel (NEXPLANON) 68 mg impl subdermal impl (more content not included)... Normal [facility] Comprehensive metabolic 2000 panelon 01-12-2025 Albumin [Mass/Vol] 4.3 g/dL Normal 3.9-4.9 [facility] Comment on above: Order Comment: Speci men Type: BLOOD SPECIMENOrdering Facility: [facility] Address: [address] [place] [address] Performed By: #### 2 4323-8 ####[facility] LABCLIA [id number] [facility] [place] [address] [place] ALP [Catalytic activity/Vol] 75 U/L Normal 34-123 [facility] Comment on above: Order Comment: Speci men Type: BLOOD SPECIMENOrdering Facility: [facility] Address: [address] [place] [address] Performed By: #### 2 4323-8 ####[facility] LABCLIA [id number] [place] [address] [place] ALT [Catalytic activity/Vol] 23 U/L Normal 7-38 [facility] Comment on above: Order Comment: Speci men Type: BLOOD SPECIMENOrdering Facility: [facility] Address: [address] [place] [address] Performed By: #### 2 4323-8 ####[facility] LABCLIA [id number] [place] [id number] [place] Anion gap [Moles/Vol] 11 mmol/L Normal 8-15 [facility] Comment on above: Order Comment: Speci men Type: BLOOD SPECIMENOrdering Facility: [facility] Address: [address] [place] [address] Performed By: #### 2 4323-8 ####[facility] LABCLIA [id number] [place] [id number] [place] AST [Catalytic activity/Vol] 17 U/L Normal 13-35 [facility] Comment on above: Order Comment: Speci men Type: BLOOD SPECIMENOrdering Facility: [facility] Address: [address] [place] [address] Performed By: #### 2 4323-8 ####[facility] LABCLIA [id number] [place] [id number] [place] Bilirubin [Mass/Vol] 0.3 mg/dL Normal 0.2-1.3 [facility] Comment on above: Order Comment: Speci men Type: BLOOD SPECIMENOrdering Facility: [facility] Address: [address] [place] [address] Performed By: #### 2 4323-8 ####[facility] LABCLIA [id number] [place] [address] [place] Calcium [Mass/Vol] 9.7 mg/dL Normal 8.5-10.2 [facility] Comment on above: Order Comment: Speci men Type: BLOOD SPECIMENOrdering Facility: [facility] Address: [address] [place] [address] Performed By: #### 2 4323-8 ####[facility] LABCLIA [id number] [place] [id number] [place] Chloride [Moles/Vol] 104 mmol/L Normal 98-107 [facility] Comment on above: Order Comment: Speci men Type: BLOOD SPECIMENOrdering Facility: [facility] Address: [address] [place] [address] Performed By: #### 2 4323-8 ####[facility] LABCLIA [id number] [place] [id number] [place] CO2 [Moles/Vol] 23 mmol/L Normal 22-30 [facility] Comment on above: Order Comment: Speci men Type: BLOOD SPECIMENOrdering Facility: [facility] Address: [address] [place], [place] [id number] Performed By: #### 2 4323-8 ####[facility] LABCLIA [id number] [place] [id number] [place] Creatinine [Mass/Vol] 0.56 mg/dL Low 0.58-0.96 [facility] Comment on above: Order Comment: Margoth nuñez Type: BLOOD SPECIMENOrdering Facility: [facility] Address: [address] [place] [address] Performed By: #### 2 4323-8 ####[facility] LABCLIA [id number] [place] [address] [place] [facility] Creatinine and Glomerular filtration rate.predicted panel (S/P/Bld) 129 mL/min/1.73m??? Normal >=60 [facility] Comment on above: Order Comment: Margoth nuñez Type: BLOOD SPECIMENOrdering Facility: [facility] Address: [address] [place] [address] Result Comment: Honey mated Glomerular Filtration Rate (eGFR) is calculated using the 2020 CKD-EPI creatinine equation. This equation utilizes serum creatinine, sex, and age as parameters. The creatinine assay has traceable calibration to isotope dilution-mass spectrometry. Refer to KDIGO guidelines for clinical interpretation. In patients with unstable renal function, e.g. those with acute kidney injury, the eGFR may not accurately reflect actual GFR. Performed By: #### 2 4323-8 ####[facility] LABCLIA [id number] [place] [address] [place] Glucose [Mass/Vol] 100 mg/dL High 74-99 [facility] Comment on above: Order Comment: Margoth nuñez Type: BLOOD SPECIMENOrdering Facility: [facility] Address: [address] [place] [address] Result Comment: The [place] [employer] (ADA) provides guidance for cutoff values for fasting glucose and random glucose. The ADA defines fasting as no caloric intake for at least 8 hours. Fasting plasma glucose results between 100 to 125 mg/dL indicate increased risk for diabetes (prediabetes). Fasting plasma glucose results greater than or equal to 126 mg/dL meet the criteria for diagnosis of diabetes. In the absence of unequivocal hyperglycemia, results should be confirmed by repeat testing. In a patient with classic symptoms of hyperglycemia or hyperglycemic crisis, random plasma glucose results greater than or equal to 200 mg/dL meet the criteria for diagnosis of diabetes. Reference: Standards of Medical Care in Diabetes 2016, [place] [employer]. Diabetes Care. 2016.39(Suppl 1). Performed By: #### 2 4323-8 ####[facility] LABCLIA [id number] [address] [address] [place] Potassium [Moles/Vol] 4.2 mmol/L Normal 3.7-5.1 [facility] Comment on above: Order Comment: Speci men Type: BLOOD SPECIMENOrdering Facility: [facility] Address: [address] [place] [address] Performed By: #### 2 4323-8 ####[facility] LABIA [id number] [place] [id number] [place] Protein [Mass/Vol] 7.1 g/dL Normal 6.3-8.0 [facility] Comment on above: Order Comment: Speci men Type: BLOOD SPECIMENOrdering Facility: [facility] Address: [address] [place], [place] [address] Performed By: #### 2 4323-8 ####[facility] LABIA [id number] [place] [id number] [place] Sodium [Moles/Vol] 138 mmol/L Normal 136-144 [facility] Comment on above: Order Comment: Speci men Type: BLOOD SPECIMENOrdering Facility: [facility] Address: [address] [place] [address] Performed By: #### 2 4323-8 ####[facility] LABCLIA [id number] [address] [address] [place] Urea nitrogen [Mass/Vol] 13 mg/dL Normal 7-21 [facility] Comment on above: Order Comment: Speci men Type: BLOOD SPECIMENOrdering Facility: [facility] Address: [address] [place], [place] [address] Performed By: #### 2 4323-8 ####[facility] LABCLIA [id number] [place]ER[facility] [place] [id number] [place] CNOVon 12-30-2024 CNOV Office Visit (ENWSTR ) ----- [place] ([id number]) 2000 F [facility] Date Time Provider Department 12/30/24 2:00 PM RUTHIE LUNA During your visit today, we recorded the following information about you: Temperature Pulse Blood pressure Weight 98.8 degrees 92/minute 118/62 82.8 kg Last Period 12/28/24 Ruthie Luna MD 12/31/2024 10:40 PM Signed [facility] Follow up note CONSULTING PROVIDER: Reagan Campos APRN. UNDERGROUND UTILITY LOCATOR (OBGYN) My final recommendations will be communicated back to the requesting provider by way of shared Medical record or a letter via [place] mail Subjective: Jackson Ny is a 24 year old female here to establish care for evaluation of hypothyroidism. Initial/last visit on 11/22/24 As per prior documentation, She is 7 months now, post her first . Post , she had PPH, and has not stopped for 4 months so thyroid labs were checked last month. This is the first time ever thyroid function was ever checked She stopped breast feeding few months ago, as she had to use antibiotics for STD Interval history: 12/30/2024 She feels more tired than before starting the medication, does not feel refreshed on waking up She feels very hungry all the time for the last few weeks Periods are painful and heavy On last visit, she denied any changes in energy, weight or appetite Sweating a lot where as she complained of cold sensitivity for few months on last visit Menstrual irregularities: has frequent or excess bleeding since delivery 6 months ago Family history: no autoimmune or thyroid issues REVIEW OF SYSTEMS: 10 point ROS was reviewed and negative unless indicated in the HPI ALLERGIES: ALLERGIES Allergen Reactions Amoxicillin Swelling Lavender (Lavandula* Rash MEDICATIONS: Current Outpatient Medications on File Prior to Visit Medication Sig Levonorgestrel-Ethinyl Estrad (AVIANE) 0.1mg - 20mcg per tablet Take 1 tablet by mouth once daily. etonogestrel (NEXPLANON) 68 mg impl subdermal implant 68 mg by SUBDERMAL route one time only. fluticasone (FLONASE) 50 mcg/actuation nasal spray Use 2 Sprays in each nostril once daily. Rinse mouth after use. (Patient not taking: Reported on 11/22/2024) No current facility-administered medications on file prior to visit. PAST MEDICAL HISTORY: PAST MEDICAL HISTORY Diagnosis Date Abnormal Pap smear of cervix 07/2019 LSIL Bacterial vaginosis Chlamydia infection 07/2019 Exercise-induced asthma Generalized anxiety disorder Herpes simplex virus (HSV) infection Herpes, genital 2024 Infectious mononucleosis 01/2017 Trichimoniasis PAST SURGICAL HISTORY: PAST SURGICAL HISTORY Procedure Laterality Date NONE FAMILY HISTORY: FAMILY HISTORY Problem Relation Age of Onset No Known Problems Father No Known Problems Sister No Known Problems Sister No Known Problems Brother No Known Problems Brother No Known Problems Brother No Known Problems Brother No Known Problems Brother No Known Problems Brother No Known Problems Brother Stroke Maternal Grandfather other (Asthma) Other Grandparent SOCIAL HISTORY: Social History Tobacco Use Smoking status: Former Current packs/day: 0.25 Average packs/day: 0.3 packs/day for 0.5 years (0.1 ttl pk-yrs) Types: Cigarettes Smokeless tobacco: Never Vaping Use Vaping status: current everyday user Substances: Nicotine, Flavoring Devices: Disposable Substance Use Topics Alcohol use: No Drug use: Not Currently Frequency: 7.0 times per week Types: Marijuana PHYSICAL EXAM: BP 118/62 (BP Site: Right Arm, BP Position: Sitting) Pulse 92 Temp 37.1 ?C (98.8 ?F) (Temporal) Wt 82.8 kg (182 lb 9.6 oz) LMP 12/28/2024 (Exact Date) SpO2 96% BMI 29.47 kg/m? Unchanged from prior visit one month ago General: Alert and oriented x3, no acute distress Eyes: Anicteric sclera. Extraocular movements are intact. Neck supple, no cervical lymphadenopathy Thyroid: slight enlargement of thyroid in size, normal texture, no palpable nodules Lungs: Breathing unlabored on room air Heart regular rate and rhythm Musculoskeletal: Muscular strength intact, No joint swelling, deformity, or tenderness Neuro: Gait normal. No focal findings Abdomen:Normal abdominal sounds, non tender to palpation, no tremors of outstretched arms Extremities: without edema, no deformities Skin: no rashes/ erythema LABS: TSH Date Value Ref Range Status 10/25/2024 23.060 (H) 0.270 - 4.200 mIU/L Final Comment: If the patient is , TSH reference range varies by gestational period: First Trimester (weeks 9-12): 0.180-2.990 mIU/L Second Trimester: 0.110-3.980 mIU/L Third Trimester: 0.480-4.710 mIU/L Sung Cordero et al. A Practical Approach for the Verifications and Determination of Site- and Tri (more content not included)... Normal [facility] T3Free SerPl-mCncon 12-31-19 25 Free T3 [Mass/Vol] 3.1 pg/mL Normal 2.3-4.1 [facility] Comment on above: Order Comment: Speci men Type: BLOOD SPECIMENOrdering Facility: [facility] Address: [address] [place] [address] Performed By: #### 3 024-7, 3016-3, 305-0 ####[facility] LABCLIA [id number] [place] [address] [place] T4 Free SerPl-mCncon 025 Free T4 [Mass/Vol] 1.1 ng/dL Normal 0.9-1.7 [facility] Comment on above: Order Comment: Speci men Type: BLOOD SPECIMENOrdering Facility: [facility] Address: [address] [place] [address] Performed By: #### 3 024-7, 3016-3, 305-0 ####[facility] LABCLIA [id number] [place] [address] [place] TSH SerPl-aCncon 12-30-2024 TSH Qn 2.720 m[IU]/L Normal 0.270-4.200 [facility] Comment on above: Order Comment: Speci men Type: BLOOD SPECIMENOrdering Facility: [facility] Address: [address] [place] [address] Result Comment: If t he patient is , TSH reference range varies by gestational period: First Trimester (weeks 9-12): 0.180-2.990 mIU/L Second Trimester: 0.110-3.980 mIU/L Third Trimester: 0.480-4.710 mIU/L Sung Cordero et al. A Practical Approach for the Verifications and Determination of Site- and Trimester-Specific Reference Intervals for Thyroid Function tests in . Thyroid, 2019:29:3:412-420. Feng Velasco, et al. 2017 Guidelines of the [place] [employer] for the Diagnosis and Management of Thyroid Disease during and the . Thyroid, 2017:27:3:315-389. Performed By: #### 3 024-7, 3016-3, 3051-0 ####[facility] LABCLIA [id number] [facility] [address] [place] OF [facility] CNOVon 12-04-2024 CNOV Office Visit (UCWSTR ) ----- [place] ([id number]) 2000 F [facility] Date Time Provider Department 12/04/24 2:15 PM FELI WINSTON WSTRINI During your visit today, we recorded the following information about you: Temperature Pulse Respiration Blood pressure 99.5 degrees 108/minute 20/minute 116/82 Weight 81.8 kg Feli Winston APRN.CNP 12/04/2024 2:34 PM Signed This note was created using NoteWriter. Subjective Jackson Ynes Ny is a 24 year old female. HPI Patient presents today complaining of about 3 weeks of symptoms consistent with her previous vaginal yeast infections. She also complains of about 2 days of runny nose cough congestion and ear pain. She otherwise denies any nausea vomiting or fever. Review of Systems As above Objective BP 116/82 Pulse 108 Temp 37.5 ?C (99.5 ?F) Resp 20 Wt 81.8 kg (180 lb 5.4 oz) LMP 10/23/2024 (Exact Date) SpO2 98% BMI 29.11 kg/m? Physical Exam Vitals and nursing note reviewed. Constitutional: General: She is not in acute distress. Appearance: Normal appearance. She is not ill-appearing. HENT: Head: Normocephalic. Mouth/Throat: Mouth: Mucous membranes are moist. Pharynx: No oropharyngeal exudate or posterior oropharyngeal erythema. Eyes: Conjunctiva/sclera: Conjunctivae normal. Cardiovascular: Rate and Rhythm: Normal rate and regular rhythm. Pulmonary: Effort: Pulmonary effort is normal. Breath sounds: Normal breath sounds. Musculoskeletal: General: Normal range of motion. Cervical back: Normal range of motion. Skin: General: Skin is warm and dry. Neurological: General: No focal deficit present. Mental Status: She is alert. Psychiatric: Mood and Affect: Mood normal. Behavior: Behavior normal. Assessment and Plan ASSESSMENT/PLAN: 1. Vaginal yeast infection - ICD9: 112.1, ICD10: B37.31 (primary diagnosis) As patient notes symptoms consistent with her previous vaginal yeast infection she was given a prescription for fluconazole. - FLUCONAZOLE 150 MG TABLET 2. Viral illness - ICD9: 079.99, ICD10: B34.9 -Discussed possible viral testing which patient declines. She will use [id number] cough and cold treatments as necessary. Patient given a note for work. Feli Winston APRN.UNDERGROUND UTILITY LOCATOR Referring Provider: SELF [200] Allergies As of Date: 12/04/2024 Noted Allergy Reaction AMOXICILLIN 11/24/2013 7 - Swelling LAVENDER (LAVANDULA ANGUSTIFOLIA) 03/12/2023 2 - Rash Date Reviewed: 12/04/2024 Reviewed by: Feli Winston APRN.UNDERGROUND UTILITY LOCATOR - Fully Assessed Reason for Visit: Cough [28] Cmt: MILAD ear pain, stuffy nose x 2 days Possible yeast infection, odor, itching, discharge x 3 weeks Primary Visit Diagnosis:Vaginal yeast infection [B37.31] Other Visit Diagnosis:Viral illness [B34.9] Order(s):fluconazole (DIFLUCAN) 150 mg tabletTake 1 tablet by mouth one time only for 1 dose. If symptoms have not improved in 72 hours may take second doseDisp: 2 tabletRfl: 0 Prescriptions as of 12/04/2024 - fluconazole (DIFLUCAN) 150 mg tablet Take 1 tablet by mouth one time only for 1 dose. If symptoms have not improved in 72 hours may take second dose - levothyroxine (SYNTHROID) 75 mcg tablet Take 1 tablet by mouth once daily. - fluticasone (FLONASE) 50 mcg/actuation nasal spray Use 2 Sprays in each nostril once daily. Rinse mouth after use. - Levonorgestrel-Ethinyl Estrad (AVIANE) 0.1mg - 20mcg per tablet Take 1 tablet by mouth once daily. - etonogestrel (NEXPLANON) 68 mg impl subdermal implant 68 mg by SUBDERMAL route one time only. Problem List As Of Date 12/04/2024 Noted Resolved ADHD (attention deficit hyperactivity disorder)*06/02/2014 Acute hepatitis [B17.9] 01/11/2021 Bipolar disorder (HCC) [F31.9] 06/03/2018 History of drug abuse (HCC) [F19.11] 01/11/2021 06/24/2024 with uncertain dates in first trimest*10/22/2023 01/05/2024 Methamphetamine use (HCC) [F15.10] 10/22/2023 Marijuana use during [O99.320, F12.90]10/22/2023 06/24/2024 Tobacco smoking complicating in third*10/22/2023 06/24/2024 Exercise-induced asthma [J45.990] 10/22/2023 06/24/2024 HSV (herpes simplex virus) infection [B00.9] 10/22/2023 Generalized anxiety disorder [F41.1] 10/22/2023 06/24/2024 History of trichomoniasis [Z86.19] 10/22/2023 Allergy to amoxicillin [Z88.0] 10/22/2023 06/24/2024 Nausea and vomiting during [O21.9] 10/22/2023 01/05/2024 History of posttraumatic stress disorder (PTSD)*10/22/2023 06/24/2024 Rh negative state in antepartum period [O26.899*11/04/2023 06/24/2024 Gastroesophageal reflux disease without esophag*03/16/2024 Supervision of high risk in third tri*03/16/2024 06/24/2024 Elevated glucose tolerance test [R73.09] 03/17/2024 06/24/2024 Anemia during in third trimester [O99*03/17/2024 06/24/2024 Excessive growth affecting management of *04/04/2024 06/24/2024 (more content not included)... Normal [facility] CNOVon 11-22-2024 CNOV Office Visit (ENWSTR ) ----- [place] ([id number]) 2000 F [facility] Date Time Provider Department 11/22/24 8:00 AM RUTHIE LUNA During your visit today, we recorded the following information about you: Temperature Pulse Blood pressure Weight 98 degrees 88/minute 118/75 80.6 kg Ruthie Luna MD 11/24/2024 10:00 PM Signed [facility] Initial Clinic Visit Note CONSULTING PROVIDER: Reagan Campos APRN. UNDERGROUND UTILITY LOCATOR (OBGYN) My final recommendations will be communicated back to the requesting provider by way of shared Medical record or a letter via [place] mail Subjective: Jackson Ny is a 24 year old female here to establish care for evaluation of hypothyroidism. She is accompanied by her grand mother today. She is 6 months now, this was her first . Post , she had PPH, and has not stopped for 4 months so thyroid labs were checked last month. This is the first time ever thyroid function was ever checked She stopped breast feeding few months ago, as she had to use antibiotics for STD Current treatment: none Prior treatment: none General symptoms: Fatigue: yes Weight change: no Appetite change: no Menstrual irregularities: has frequent or excess bleeding since delivery 6 months ago Change in bowel habits: no Temperature intolerance: cold sensitivity for the past few months Family history: no autoimmune or thyroid issues REVIEW OF SYSTEMS: GENERAL:No weight loss, malaise or fevers HEENT:Negative for frequent or significant headaches, No changes in hearing or vision, no nose bleeds or other nasal problems NECK:Negative for lumps, goiter, pain and significant neck swelling RESPIRATORY: Negative for cough, hemoptysis, wheezing or shortness of breath CARDIOVASCULAR: Negative for chest pain, leg swelling or palpitations GASTROINTESTINAL: No nausea, vomiting, or persistent diarrhea GENITOURINARY: no dysuria, Polyuria, no changes in urinary frequency MUSCULOSKELETAL:no muscle aches, arthralgia NEUROLOGIC: no numbness, tingling, no Paresthesias, no headaches SKIN:Negative for lesions, rash, and itching PSYCHIATRIC: Negative for sleep disturbance, mood disorder and recent psychosocial stressors. HEMATOLOGIC/LYMPHATIC/IMM UNOLOGIC:Negative for prolonged bleeding, bruising easily ENDOCRINE: Negative for cold or heat intolerance or goiter ALLERGIES: ALLERGIES Allergen Reactions Amoxicillin Swelling Lavender (Lavandula* Rash MEDICATIONS: Current Outpatient Medications on File Prior to Visit Medication Sig Levonorgestrel-Ethinyl Estrad (AVIANE) 0.1mg - 20mcg per tablet Take 1 tablet by mouth once daily. etonogestrel (NEXPLANON) 68 mg impl subdermal implant 68 mg by SUBDERMAL route one time only. fluticasone (FLONASE) 50 mcg/actuation nasal spray Use 2 Sprays in each nostril once daily. Rinse mouth after use. (Patient not taking: Reported on 11/22/2024) No current facility-administered medications on file prior to visit. PAST MEDICAL HISTORY: PAST MEDICAL HISTORY Diagnosis Date Abnormal Pap smear of cervix 07/2019 LSIL Bacterial vaginosis Chlamydia infection 07/2019 Exercise-induced asthma Generalized anxiety disorder Herpes simplex virus (HSV) infection Herpes, genital 2024 Infectious mononucleosis 01/2017 Trichimoniasis PAST SURGICAL HISTORY: PAST SURGICAL HISTORY Procedure Laterality Date NONE FAMILY HISTORY: FAMILY HISTORY Problem Relation Age of Onset No Known Problems Father No Known Problems Sister No Known Problems Sister No Known Problems Brother No Known Problems Brother No Known Problems Brother No Known Problems Brother No Known Problems Brother No Known Problems Brother No Known Problems Brother Stroke Maternal Grandfather other (Asthma) Other Grandparent SOCIAL HISTORY: Social History Tobacco Use Smoking status: Former Current packs/day: 0.25 Average packs/day: 0.3 packs/day for 0.5 years (0.1 ttl pk-yrs) Types: Cigarettes Smokeless tobacco: Never Vaping Use Vaping status: Former Substance Use Topics Alcohol use: No Drug use: Not Currently Frequency: 7.0 times per week Types: Marijuana PHYSICAL EXAM: BP 118/75 (BP Site: Right Arm, BP Position: Sitting, BP Cuff Size: Regular Adult) Pulse 88 Temp 36.7 ?C (98 ?F) (Temporal Artery) Wt 80.6 kg (177 lb 12.8 oz) LMP 10/23/2024 (Exact Date) SpO2 96% No BMI 28.70 kg/m? Last 3 Encounter Wt Readings: Date: Wt: 11/22/2024 80.6 kg (177 lb 12.8 oz) 11/18/2024 81.4 kg (179 lb 7.3 oz) 10/30/2024 79 kg (174 lb 2.6 oz) General: Alert and oriented x3, no acute distress Eyes: Anicteric sclera. Extraocular movements are intact. Neck supple, no cervical lymphadenopathy Thyroid: slight enlargement of thyroid in size, normal texture, no palpable nodules Kitty (more content not included)... Normal [facility] CNOVon 11-18-2024 CNOV Office Visit (UCWSTR ) ----- [place] ([id number]) 2000 F [facility] Date Time Provider Department 11/18/24 4:45 PM TYLER SALMON [facility] During your visit today, we recorded the following information about you: Temperature Pulse Respiration Blood pressure 98.1 degrees 91/minute 18/minute 111/78 Weight 81.4 kg Tyelr SalmonTAVO.LORI 11/18/2024 5:15 PM Signed Subjective HPI HPI Jackson Ny is a 24 year old female who presents today for CC of diarrhea last night/improving. Needs work note. Left ear pressure, had infection 1 week ago, atb helped pain but still having issues. Smoker. Denies possibility of being . .Patient presents with: Diarrhea: X last night, symptoms now cleared PAST MEDICAL HISTORY Diagnosis Date Abnormal Pap smear of cervix 07/2019 LSIL Bacterial vaginosis Chlamydia infection 07/2019 Exercise-induced asthma Generalized anxiety disorder Herpes simplex virus (HSV) infection Herpes, genital 2024 Infectious mononucleosis 01/2017 Trichimoniasis PAST SURGICAL HISTORY Procedure Laterality Date NONE ALLERGIES Amoxicillin MEDICATIONS Levonorgestrel-Ethinyl Estrad (AVIANE) 0.1mg - 20mcg per tablet Take 1 tablet by mouth once daily. etonogestrel (NEXPLANON) 68 mg impl subdermal implant 68 mg by SUBDERMAL route one time only. FAMILY HISTORY Problem Relation Age of Onset No Known Problems Father No Known Problems Sister No Known Problems Sister No Known Problems Brother No Known Problems Brother No Known Problems Brother No Known Problems Brother No Known Problems Brother No Known Problems Brother No Known Problems Brother Stroke Maternal Grandfather other (Asthma) Other Grandparent Social History Tobacco Use Smoking status: Former Current packs/day: 0.25 Average packs/day: 0.3 packs/day for 0.5 years (0.1 ttl pk-yrs) Types: Cigarettes Smokeless tobacco: Never Vaping Use Vaping status: Former Substance Use Topics Alcohol use: No Drug use: Not Currently Frequency: 7.0 times per week Types: Marijuana Review of Systems Constitutional: Negative for fever. HENT: Positive for ear pain and hearing loss. Negative for congestion, ear discharge, nosebleeds, sore throat and tinnitus. Respiratory: Negative for cough, shortness of breath and wheezing. Gastrointestinal: Positive for diarrhea. Negative for abdominal pain, constipation, nausea and vomiting. Musculoskeletal: Negative for neck pain. Objective Blood pressure 111/78, pulse 91, temperature 36.7 ?C (98.1 ?F), resp. rate 18, weight 81.4 kg (179 lb 7.3 oz), last menstrual period 10/23/2024, SpO2 99%, not currently . Physical Exam Constitutional: General: She is not in acute distress. Appearance: Normal appearance. She is not toxic-appearing or diaphoretic. HENT: Head: Normocephalic and atraumatic. Right Ear: Hearing, tympanic membrane, ear canal and external ear normal. Left Ear: Hearing, tympanic membrane, ear canal and external ear normal. Nose: Nose normal. Mouth/Throat: Pharynx: Uvula midline. No pharyngeal swelling, oropharyngeal exudate, posterior oropharyngeal erythema or uvula swelling. Eyes: General: Lids are normal. No scleral icterus. Right eye: No discharge. Left eye: No discharge. Conjunctiva/sclera: Conjunctivae normal. Pupils: Pupils are equal, round, and reactive to light. Neck: Trachea: Trachea normal. Cardiovascular: Rate and Rhythm: Normal rate and regular rhythm. Heart sounds: Normal heart sounds. Pulmonary: Effort: Pulmonary effort is normal. Breath sounds: Normal breath sounds. Abdominal: General: Bowel sounds are normal. Palpations: Abdomen is soft. Tenderness: There is no abdominal tenderness. Musculoskeletal: Cervical back: Normal range of motion and neck supple. Lymphadenopathy: Cervical: No cervical adenopathy. Right cervical: No superficial cervical adenopathy. Left cervical: No superficial cervical adenopathy. Skin: General: Skin is warm and dry. Findings: No rash. Neurological: Mental Status: She is alert and oriented to person, place, and time. ASSESSMENT/PLAN: 1. Diarrhea, unspecified type - ICD9: 787.91, ICD10: R19.7 (primary diagnosis) Resolved. Work note provided F/u for new or continued s/s 2. Dysfunction of left eustachian tube - ICD9: 381.81, ICD10: H69.92 -use medication as prescribed -follow up if symptoms persist, worsen, change - FLUTICASONE PROPIONATE 50 MCG/ACTUATION NASAL SPRAY,SUSPENSION Tyler Salmon APRN.UNDERGROUND UTILITY LOCATOR Allergies As of Date: 11/18/2024 Noted Allergy Reaction AMOXICILLIN 11/24/2013 7 - Swelling Date Reviewed: 11/18/2024 Reviewed by: Barb Chaney MA - Fully Assessed Reason for Visit: Diarrhea [35] Cmt: X last night, symptoms now cleared Primary Visit Diagnosis:Diarrhea, unspecified type [R19.7] Other Visit Diagnosis:Dysfuncti (more content not included)... Normal [facility] THYROID PEROXIDASE ANTIBODYo n 10-31-2024 TPO Ab Qn 4.2 [IU]/mL Normal <5.6 [facility] Comment on above: Order Comment: Speci men Type: BLOOD SPECIMENOrdering Facility: [facility] Address: [address] [place] [address] Result Comment: Thyr oid Peroxidase Antibody test is used as an aid in diagnosis of autoimmune thyroid disease. Clinical correlation is required. Performed By: #### M ICRO ####[facility] LABCLIA [id number] [facility] [id number] [place] [address] CNOVon 10-30-2024 CNOV Office Visit (UCWSTR ) ----- [place] ([id number]) 2000 F [facility] Date Time Provider Department 10/30/24 10:00 AM BINTA HATHAWAY [facility] During your visit today, we recorded the following information about you: Temperature Pulse Respiration Blood pressure 100.1 degrees 86/minute 20/minute 128/84 Weight Last Period 79 kg 10/23/24 Binta Hathaway APRN.UNDERGROUND UTILITY LOCATOR 10/30/2024 10:33 AM Signed This note was created using NoteWriter. Subjective Jackson Ny is a 24 year old female. 24 year old female with PMH GERD, ADHD, and bipolar presents for illness. 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 No insolvency consultant was used. Ear Pain This is a new problem. The current episode started yesterday. The problem occurs constantly. The problem has been gradually worsening. Associated symptoms include congestion, coughing, fatigue, a fever, headaches and swollen glands. Pertinent negatives include no abdominal pain, anorexia, arthralgias, change in bowel habit, chest pain, chills, diaphoresis, joint swelling, myalgias, nausea, neck pain, numbness, rash, sore throat, urinary symptoms, vertigo, visual change, vomiting or weakness. Nothing aggravates the symptoms. She has tried nothing for the symptoms. The treatment provided no relief. URI She complains of cough and sputum production. There is no chest tightness, difficulty breathing, frequent throat clearing, hemoptysis, hoarse voice, shortness of breath or wheezing. This is a new problem. The current episode started in the past 7 days. The problem occurs constantly. The problem has been gradually improving. The cough is productive of sputum. Associated symptoms include ear congestion, ear pain, a fever, headaches, postnasal drip and rhinorrhea. Pertinent negatives include no chest pain, heartburn, malaise/fatigue, myalgias, orthopnea, sore throat, sweats or trouble swallowing. Her symptoms are aggravated by nothing. Her symptoms are alleviated by nothing. She reports no improvement on treatment. Risk factors for lung disease include smoking/tobacco exposure. There is no history of asthma, bronchiectasis, bronchitis, COPD, emphysema or pneumonia. PAST MEDICAL HISTORY Diagnosis Date Abnormal Pap smear of cervix 07/2019 LSIL Bacterial vaginosis Chlamydia infection 07/2019 Exercise-induced asthma Generalized anxiety disorder Herpes simplex virus (HSV) infection Herpes, genital 2024 Infectious mononucleosis 01/2017 Trichimoniasis PAST SURGICAL HISTORY Procedure Laterality Date NONE ALLERGIES Amoxicillin MEDICATIONS Levonorgestrel-Ethinyl Estrad (AVIANE) 0.1mg - 20mcg per tablet Take 1 tablet by mouth once daily. etonogestrel (NEXPLANON) 68 mg impl subdermal implant 68 mg by SUBDERMAL route one time only. cefdinir (OMNICEF) 300 mg capsule Take 1 capsule by mouth two times a day for 7 days. FAMILY HISTORY Problem Relation Age of Onset No Known Problems Father No Known Problems Sister No Known Problems Sister No Known Problems Brother No Known Problems Brother No Known Problems Brother No Known Problems Brother No Known Problems Brother No Known Problems Brother No Known Problems Brother Stroke Maternal Grandfather other (Asthma) Other Grandparent Social History Tobacco Use Smoking status: Former Current packs/day: 0.25 Average packs/day: 0.3 packs/day for 0.5 years (0.1 ttl pk-yrs) Types: Cigarettes Smokeless tobacco: Never Vaping Use Vaping status: Former Substance Use Topics Alcohol use: No Drug use: Not Currently Frequency: 7.0 times per week Types: Marijuana Review of Systems Constitutional: Positive for fatigue and fever. Negative for chills, diaphoresis and malaise/fatigue. HENT: Positive for congestion, ear pain, postnasal drip and rhinorrhea. Negative for hoarse voice, sore throat and trouble swallowing. Eyes: Negative for pain, discharge, redness and itching. Respiratory: Positive for cough and sputum production. Negative for hemoptysis, shortness of breath and wheezing. Cardiovascular: Negative for chest pain. Gastrointestinal: Negative for abdominal pain, anorexia, change in bowel habit, heartburn, nausea and vomiting. Musculoskeletal: Negative for arthralgias, joint swelling, myalgias and neck pain. Skin: Negative for rash. Neurological: Positive for headaches. Negative for vertigo, weakness and numbness. Hematological: Negative for adenopathy. Does not bruise/bleed easily. Psychiatric/Behavioral: N (more content not included)... [facility] ([facility] ----- [place] ([id number]) 2000 F [facility] Date Time Provider Department 10/26/24 BINTA CARCAMO During your visit today, we recorded the following information about you: Alyson Barksdale, RN 10/26/2024 4:40 PM Signed Patient calling in because she saw her elevated TSH level on mychart. Patient aware ALYX out of office until Thursday. Will route to another provider to review. Should other thyroid labs be ordered? TSH Date Value Ref Range Status 10/25/2024 23.060 (H) 0.270 - 4.200 mIU/L Final Comment: AUDRA Winters Emily, APRN.LORI 10/27/2024 8:39 AM Signed T4 and TPO added on. Please see if lab can add these on. Will need consult with endocrinology Reagan Campos APRN.Alyson Siegel RN 10/27/2024 9:23 AM Signed T4 is able to be added on to blood work, but patient will have to get thyroid antibody drawn though. Patient notified. She plans to get blood work drawn 10/31. Transferred to [facility] to schedule. Alyson Barksdale RN Allergies As of Date: 10/26/2024 Noted Allergy Reaction AMOXICILLIN 11/24/2013 7 - Swelling Date Reviewed: 10/25/2024 Reviewed by: Nohelia Oconnor MA - Fully Assessed Reason for Visit: Results [95] Primary Visit Diagnosis:Elevated TSH [R79.89] Order(s):T4 FREE/FREE THYROXINE [SQFT4] Order #: [id number] FUTURE THYROID PEROXIDASE ANTIBODY [SQMICRO] Order #: [id number] FUTURE CONSULT TO ENDOCRINOLOGY [9007] Order #: [id number]: 1 FUTURE Prescriptions as of 10/27/2024 - Levonorgestrel-Ethinyl Estrad (AVIANE) 0.1mg - 20mcg per tablet Take 1 tablet by mouth once daily. - etonogestrel (NEXPLANON) 68 mg impl subdermal implant 68 mg by SUBDERMAL route one time only. Problem List As Of Date 10/26/2024 Noted Resolved ADHD (attention deficit hyperactivity disorder)*06/02/2014 Acute hepatitis [B17.9] 01/11/2021 Bipolar disorder (HCC) [F31.9] 06/03/2018 History of drug abuse (HCC) [F19.11] 01/11/2021 06/24/2024 with uncertain dates in first trimest*10/22/2023 01/05/2024 Methamphetamine use (HCC) [F15.10] 10/22/2023 Marijuana use during [O99.320, F12.90]10/22/2023 06/24/2024 Tobacco smoking complicating in third*10/22/2023 06/24/2024 Exercise-induced asthma [J45.990] 10/22/2023 06/24/2024 HSV (herpes simplex virus) infection [B00.9] 10/22/2023 Generalized anxiety disorder [F41.1] 10/22/2023 06/24/2024 History of trichomoniasis [Z86.19] 10/22/2023 Allergy to amoxicillin [Z88.0] 10/22/2023 06/24/2024 Nausea and vomiting during [O21.9] 10/22/2023 01/05/2024 History of posttraumatic stress disorder (PTSD)*10/22/2023 06/24/2024 Rh negative state in antepartum period [O26.899*11/04/2023 06/24/2024 Gastroesophageal reflux disease without esophag*03/16/2024 Supervision of high risk in third tri*03/16/2024 06/24/2024 Elevated glucose tolerance test [R73.09] 03/17/2024 06/24/2024 Anemia during in third trimester [O99*03/17/2024 06/24/2024 Excessive growth affecting management of *04/04/2024 06/24/2024 BP check [Z01.30] 05/11/2024 06/24/2024 Pre-eclampsia in third trimester [O14.93] 05/11/2024 06/24/2024 Elevated blood pressure reading [R03.0] 05/11/2024 06/24/2024 Encounter Status:Closed by ALYSON BARKSDALE on 10/27/24 [facility] Auto Differential pane l (Bld)on 10-25-2024 Basophils (Bld) [#/Vol] 0.06 10*3/uL [facility] Basophils/100 WBC (Bld) 0.7 % [facility] Differential cell count method Nom (Bld) Auto [facility] Eosinophils (Bld) [#/Vol] 0.14 10*3/uL [facility] Eosinophils/100 WBC (Bld) 1.6 % [facility] Erythrocyte distribution width (RBC) [Ratio] 12.1 % 11.5 - 15.0 % [facility] Hematocrit (Bld) [Volume fraction] 37.9 % 36.0 - 46.0 % [facility] Hemoglobin (Bld) [Mass/Vol] 12.4 g/dL 11.5 - 15.5 g/dL [facility] Immature granulocytes (Bld) [#/Vol] [facility] Immature granulocytes/100 WBC (Bld) 0.2 % [facility] Lymphocytes (Bld) [#/Vol] 1.76 10*3/uL [facility] Lymphocytes/100 WBC (Bld) 19.8 % [facility] MCH (RBC) [Entitic mass] 30.0 pg 26.0 - 34.0 pg [facility] MCHC (RBC) [Mass/Vol] 32.7 g/dL 30.5 - 36.0 g/dL [facility] MCV (RBC) [Entitic vol] 91.8 fL 80.0 - 100.0 fL [facility] Monocytes (Bld) [#/Vol] 0.61 10*3/uL [facility] Monocytes/100 WBC (Bld) 6.8 % [facility] Neutrophils (Bld) [#/Vol] 6.32 10*3/uL [facility] Neutrophils/100 WBC (Bld) 70.9 % [facility] Nucleated RBC (Bld) [#/Vol] [facility] Nucleated RBC/100 WBC (Bld) [Ratio] 0.0 % /100 WBC [facility] Platelet mean volume (Bld) [Entitic vol] 10.8 fL 9.0 - 12.7 fL [facility] Platelets (Bld) [#/Vol] 241 10*3/uL [facility] RBC (Bld) [#/Vol] 4.13 10*6/uL 3.90 - 5.2 0 m/uL [facility] WBC (Bld) [#/Vol] 8.91 10*3/uL [facility] Basophils (Bld) [#/Vol] 0.06 10*3/uL Normal <0.11 [facility] Comment on above: Order Comment: Speci men Type: BLOOD SPECIMENOrdering Facility: [facility] Address: [address] [place] [address] Performed By: #### 5 7021-8 ####[facility] MILLWNCLIA [id number] [place] [address] [place] Basophils/100 WBC (Bld) 0.7 % Normal [facility] Comment on above: Order Comment: Speci men Type: BLOOD SPECIMENOrdering Facility: [facility] Address: [address] [place] [address] Performed By: #### 5 7021-8 ####[facility] CENTERLIA [id number] [place] [address] [place] Differential cell count method Nom (Bld) Auto Normal [facility] Comment on above: Order Comment: Speci men Type: BLOOD SPECIMENOrdering Facility: [facility] Address: [address] [place] [address] Performed By: #### 5 7021-8 ####[facility] FLORIDAWNCLIA [id number] [place] [address] [place] Eosinophils (Bld) [#/Vol] 0.14 10*3/uL Normal <0.46 [facility] Comment on above: Order Comment: Speci men Type: BLOOD SPECIMENOrdering Facility: [facility] Address: [address] [place] [address] Performed By: #### 5 7021-8 ####[facility] MILLTOWNCLIA [id number] [place] [address] [place] Eosinophils/100 WBC (Bld) 1.6 % Normal [facility] Comment on above: Order Comment: Speci men Type: BLOOD SPECIMENOrdering Facility: [facility] Address: [address] [place] [address] Performed By: #### 5 7021-8 ####[facility] MILLWNCLIA [id number] [place] [address] [place] Erythrocyte distribution width (RBC) [Ratio] 12.1 % Normal 11.5-15.0 [facility] Comment on above: Order Comment: Speci men Type: BLOOD SPECIMENOrdering Facility: [facility] Address: [address] [place] [address] Performed By: #### 5 7021-8 ####[facility] HOSPITALMARIA R [id number] [place] [address] [place] Hematocrit (Bld) [Volume fraction] 37.9 % Normal 36.0-46.0 [facility] Comment on above: Order Comment: Speci men Type: BLOOD SPECIMENOrdering Facility: [facility] Address: [address] [place] [address] Performed By: #### 5 7021-8 ####[facility] HOSPITALMARIA R [id number] [place] [address] [place] Hemoglobin (Bld) [Mass/Vol] 12.4 g/dL Normal 11.5-15.5 [facility] Comment on above: Order Comment: Speci men Type: BLOOD SPECIMENOrdering Facility: [facility] Address: [address] [place] [address] Performed By: #### 5 7021-8 ####[facility]OSPITALMARIA R [id number] [place] [address] [place] Immature granulocytes (Bld) [#/Vol] 10*3/uL Normal <0.10 [facility] Comment on above: Order Comment: Speci men Type: BLOOD SPECIMENOrdering Facility: [facility] Address: [address] [place] [address] Performed By: #### 5 7021-8 ####[facility] HOSPITALNCLIA [id number] [place] [address] [place] Immature granulocytes/100 WBC (Bld) 0.2 % Normal [facility] Comment on above: Order Comment: Speci men Type: BLOOD SPECIMENOrdering Facility: [facility] Address: [address] [place] [address] Performed By: #### 5 7021-8 ####[facility] MERARIWICHITANCPETERSON [id number] [place] [address] [place] Lymphocytes (Bld) [#/Vol] 1.76 10*3/uL Normal 1.00-4.00 [facility] Comment on above: Order Comment: Speci men Type: BLOOD SPECIMENOrdering Facility: [facility] Address: [address] [place] [address] Performed By: #### 5 7021-8 ####[facility]OSPITALNCRIVERTON HOSPITAL [id number] [place] [address] [place] Lymphocytes/100 WBC (Bld) 19.8 % Normal [facility] Comment on above: Order Comment: Speci men Type: BLOOD SPECIMENOrdering Facility: [facility] Address: [address] [place] [address] Performed By: #### 5 7021-8 ####[facility]OSPITALNCRIVERTON HOSPITAL [id number] [place] [address] [place] MCH (RBC) [Entitic mass] 30.0 pg Normal 26.0-34.0 [facility] Comment on above: Order Comment: Speci men Type: BLOOD SPECIMENOrdering Facility: [facility] Address: [address] [place] [address] Performed By: #### 5 7021-8 ####[facility] HOSPITALNCLIA [id number] [place] [address] [place] MCHC (RBC) [Mass/Vol] 32.7 g/dL Normal 30.5-36.0 [facility] Comment on above: Order Comment: Speci men Type: BLOOD SPECIMENOrdering Facility: [facility] Address: [address] [place] [address] Performed By: #### 5 7021-8 ####[facility] HOSPITALNCLIA [id number] [place] [address] [place] MCV (RBC) [Entitic vol] 91.8 fL Normal 80.0-100.0 [facility] Comment on above: Order Comment: Speci men Type: BLOOD SPECIMENOrdering Facility: [facility] Address: [address] [place] [address] Performed By: #### 5 7021-8 ####[facility]OSPITALNCLIA [id number] [place] [address] [place] Monocytes (Bld) [#/Vol] 0.61 10*3/uL Normal <0.87 [facility] Comment on above: Order Comment: Speci men Type: BLOOD SPECIMENOrdering Facility: [facility] Address: [address] [place] [address] Performed By: #### 5 7021-8 ####[facility] HOSPITALNCA [id number] [place] [address] [place] Monocytes/100 WBC (Bld) 6.8 % Normal [facility] Comment on above: Order Comment: Speci men Type: BLOOD SPECIMENOrdering Facility: [facility] Address: [address] [place] [address] Performed By: #### 5 7021-8 ####[facility] CENTERLIA [id number] [place] [address] [place] Neutrophils (Bld) [#/Vol] 6.32 10*3/uL Normal 1.45-7.50 [facility] Comment on above: Order Comment: Speci men Type: BLOOD SPECIMENOrdering Facility: [facility] Address: [address] [place] [address] Performed By: #### 5 7021-8 ####[facility] [id number] [place] [address] [place] Neutrophils/100 WBC (Bld) 70.9 % Normal [facility] Comment on above: Order Comment: Speci men Type: BLOOD SPECIMENOrdering Facility: [facility] Address: [address] [place] [address] Performed By: #### 5 7021-8 ####[facility] HOSPITALGARRETTEliazar [id number] [place] [address] [place] Nucleated RBC (Bld) [#/Vol] 10*3/uL Normal <0.01 [facility] Comment on above: Order Comment: Speci men Type: BLOOD SPECIMENOrdering Facility: [facility] Address: [address] [place] [address] Performed By: #### 5 7021-8 ####[facility] HOSPITALGARRETTEliazar [id number] [place] [address] [place] Nucleated RBC/100 WBC (Bld) [Ratio] 0.0 /100 WBC Normal [facility] Comment on above: Order Comment: Speci men Type: BLOOD SPECIMENOrdering Facility: [facility] Address: [address] [place] [address] Performed By: #### 5 7021-8 ####[facility] HOSPITALNCLI [id number] [place] [address] [place] Platelet mean volume (Bld) [Entitic vol] 10.8 fL Normal 9.0-12.7 [facility] Comment on above: Order Comment: Speci men Type: BLOOD SPECIMENOrdering Facility: [facility] Address: [address] [place] [address] Performed By: #### 5 7021-8 ####[facility] HOSPITALNCLIA [id number] [place] [address] [place] Platelets (Bld) [#/Vol] 241 10*3/uL Normal 150-400 [facility] Comment on above: Order Comment: Speci men Type: BLOOD SPECIMENOrdering Facility: [facility] Address: [facility] [place] [address] Performed By: #### 5 7021-8 ####[facility] MERARITOWNCLIA [id number] [place] [address] [place] RBC (Bld) [#/Vol] 4.13 10*6/uL Normal 3.90-5.20 [facility] Comment on above: Order Comment: Speci men Type: BLOOD SPECIMENOrdering Facility: [facility] Address: [address] [place] [address] [place] [address] Performed By: #### 5 7021-8 ####[facility]OSPITALNCLIA [id number] [place] [address] [place] WBC (Bld) [#/Vol] 8.91 10*3/uL Normal 3.70-11.00 [facility] Comment on above: Order Comment: Speci men Type: BLOOD SPECIMENOrdering Facility: [facility] Address: [address] [place] [address] Performed By: #### 5 7021-8 ####[facility] HOSPITALNCLIA [id number] [place] [address] [place] CNOVon 10-25-2024 CNOV Office Visit (OBGYWM ) ----- [place] ([id number]) 2000 F [place] Date Time Provider Department 10/25/24 11:30 AM BINTA CARCAMO During your visit today, we recorded the following information about you: Blood pressure Weight Last Period 100/60 80.3 kg 10/08/24 Binta Carcamo APRN.CNM 10/25/2024 2:50 PM Signed Transplant Immunologist offered: Patient declines. Jackson Ny is a 24 year old female who presents for problem visit frequent vaginal bleeding, and discussion for Nexplanon Removal. HPI: Jackson presents for frequent vaginal bleeding. She is not bleeding today. Son born 05/07/24, Nexplanon inserted 05/08/24 immediately at hospital. Since placement, bleeding more than she is not. Was bleeding for 3 weeks straight and then has a few days with no bleeding and then will start again. Having some cramping but no pelvic pain. Cramping occurs with bleeding. Flow is heavy, She was changing a pad or tampon every couple hours. She wants to discuss whether the Nexplanon is the reason for her bleeding, and a possible removal if it is the cause of her bleeding. Denies any large clots. 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 History Comments: Sexual Activity: Yes; Male Contraception: Implant PAST MEDICAL HISTORY Diagnosis Date Abnormal Pap smear of cervix 07/2019 LSIL Bacterial vaginosis Chlamydia infection 07/2019 Exercise-induced asthma Generalized anxiety disorder Herpes simplex virus (HSV) infection Herpes, genital 2024 Infectious mononucleosis 01/2017 Trichimoniasis PAST SURGICAL HISTORY Procedure Laterality Date NONE FAMILY HISTORY Problem Relation Age of Onset No Known Problems Father No Known Problems Sister No Known Problems Sister No Known Problems Brother No Known Problems Brother No Known Problems Brother No Known Problems Brother No Known Problems Brother No Known Problems Brother No Known Problems Brother Stroke Maternal Grandfather other (Asthma) Other Grandparent Social History Tobacco Use Smoking status: Former Current packs/day: 0.25 Average packs/day: 0.3 packs/day for 0.5 years (0.1 ttl pk-yrs) Types: Cigarettes Smokeless tobacco: Never Vaping Use Vaping status: Former Substance Use Topics Alcohol use: No Drug use: Not Currently Frequency: 7.0 times per week Types: Marijuana Current Outpatient Medications Medication Sig etonogestrel (NEXPLANON) 68 mg impl subdermal implant 68 mg by SUBDERMAL route one time only. No current facility-administered medications for this visit. Allergies As of Date: 10/25/2024 Allergen Noted Reaction AMOXICILLIN 11/24/2013 Swelling Fully Assessed 10/25/2024 REVIEW OF SYSTEMS Abdomen: No bloating, early satiety, indigestion, or increased flatulence. No abdominal pain, nausea, vomiting, diarrhea, or constipation. Bladder: No dysuria, gross hematuria, urinary frequency, urinary urgency, or incontinence. Breast: No breast lumps, nipple d/c, overlying skin changes, redness or skin retraction. Expanded ROS: N/A Allergies and current medication updated:Yes SENSITIVE EXAM: The sensitive examination was discussed with the Patient or Patient's Authorized Surgical Instruments Inspector. As applicable, any other physician, advance practice provider, medical student, or other health professional student that will be observing or involved in the sensitive examination for educational or training purposes was discussed with the Patient or Authorized Surgical Instruments Inspector. The Patient or Authorized Surgical Instruments Inspector has agreed to proceed with the sensitive examination. (Sensitive examination includes inspection and/or palpation of the breasts, pelvis, prostate and anorectal regions). EXAM: BP 100/60 Wt 177 lb (80.3kg) LMP 10/08/2024 GENERAL: pleasant, female in no apparent distress HEENT: Normocephalic and atraumatic NECK: Supple and full range of motion DERMATOLOGY: Normal and without lesions CHEST: Normal inspiratory effort ABDOMEN: soft, non-tender, and no masses PELVIC: deferred BIMANUAL: deferred NEURO: alert and oriented x3,exam grossly non-focal EXTREMITIES: normal ASSESSMENT AND PLAN: Assessment AND Plan Breakthrough bleeding on Nexplanon Orders: THYROID STIMULATING HORMONE; Future COMPLETE BLOOD COUNT AND DIFFERENTIAL; Future -Reviewed option to add OCP for 3 months and then follow up to see if improvement. If desires removal at anytime can remove and discuss other options. Discussed irregular bleeding is common as long as she is stable and no other side effects. She agrees with trailing OCP and then will follow up. -Denies concerns for STDs or testing I discussed with the patient the risks, benefits, mechanism of (more content not included)... Normal [facility] T4 Free SerPl-mCncon 025 Free T4 [Mass/Vol] 0.5 ng/dL Low 0.9-1.7 [facility] Comment on above: Order Comment: Speci men Type: BLOOD SPECIMENOrdering Facility: [facility] Address: [address] [place] [address] Performed By: #### 3 016-3, 3024-7 ####[facility] LABCLIA [id number] [place] [address] [place] TSH SerPl-aCncon 10-25-2024 TSH Qn 23.060 m[IU]/L High 0.270-4.200 [facility] Comment on above: Order Comment: Speci men Type: BLOOD SPECIMENOrdering Facility: [facility] Address: [address] [place] [address] Result Comment: If t he patient is , TSH reference range varies by gestational period: First Trimester (weeks 9-12): 0.180-2.990 mIU/L Second Trimester: 0.110-3.980 mIU/L Third Trimester: 0.480-4.710 mIU/L Sung Cordero et al. A Practical Approach for the Verifications and Determination of Site- and Trimester-Specific Reference Intervals for Thyroid Function tests in . Thyroid, 2019:29:3:412-420. Feng E, et al. 2017 Guidelines of the [place] [employer] for the Diagnosis and Management of Thyroid Disease during and the . Thyroid, 2017:27:3:315-389. Performed By: #### 3 016-3, 3024-7 ####[facility] LABCLIA [id number] [address] [place] CNPLissett 09-27-2024 CNPN Telephone (OBGYWM) ----- [place] ([id number]) 2000 F [place] Date Time Provider Department 09/27/24 URBAN BURNETT During your visit today, we recorded the following information about you: BenignoMaddison villalobosDASIA 09/27/2024 9:01 AM Signed Patient called stating that she completed treatment for trichomoniasis but partner has not and is requesting EPT. Expedited Partner Therapy (EPT) EPT is being prescribed today to the patient?s partner(s) as the following conditions have been met: The intended recipient is a sexual partner of Jackson Ny. Jackson Ny has been diagnosed with trichomoniasis. aJckson Ny reports that sexual partner is unable or unlikely to be evaluated or treated by a health professional. EPT is being prescribed for no more than two sexual partners. Jackson Ny's sexual partner(s) have been contacted: Yes Sexual partner(s) have been informed that he or she may have been exposed to trichomoniasis. Sexual partner(s) have been encouraged to seek treatment and testing from a healthcare professional. Treatment options available have been explained. Maddison Moreno LPN 09/27/2024 8:55 AM Signed Expedited Partner Treatment Trichomonas: Guide for Partners who Receive Metronidazole Why am I getting this prescription or medication? Trichomonas is a sexually transmitted infection (STI). Although some patients with trichomonas experience symptoms, many do not have any signs or symptoms. Symptoms of trichomonas can include: pain or burning when you pee, fluid/discharge from the vagina, penis, or rectum that smells or looks strange, or pain with sex. You can give trichomonas to others you have sex with; so, it is important to get treatment. Untreated trichomonas can lead to worsening symptoms and a higher chance of getting HIV. It is important to complete the entire treatment for this infection. What is the treatment for trichomonas? The prescription you are given today is for an oral antibiotic called metronidazole. Do NOT take this antibiotic if you have a severe allergy to metronidazole. This antibiotic can be taken with food to help prevent an upset stomach. Side effects can include nausea, vomiting, abdominal pain, diarrhea, metallic taste, and headache. If you experience any symptoms of an allergic reaction such as trouble breathing, chest tightness, closing of the throat, swelling of the lips or tongue, and itchy bumps on your skin, seek medical attention right away. What else should I do? Do not have sex for at least 7 days after you AND your sexual partner have been treated. See a healthcare provider for additional testing for other STIs, including HIV and syphilis. It is important to be tested for other STIs because this medication will only treat trichomonas. Using condoms correctly and consistently during sex is the best way to prevent other STIs. Urban Burnett MD 09/27/2024 2:33 PM Signed EPT ordered. MD Alma Rosa Hamilton Trisha, RN 09/27/2024 2:41 PM Signed Patient notified. Alyson Barksdale RN The following approved medication requests have been transmitted electronically. Requested Prescriptions Signed Prescriptions Disp Refills metroNIDAZOLE (FLAGYL) 500 mg tablet 14 tablet 0 Sig: Take 1 tablet by mouth two times a day for 7 days. Authorizing Provider: URBAN BURNETT Pharmacy Information Pharmacy Address Telephone [facility] [phone] [place] [address] Allergies As of Date: 09/27/2024 Noted Allergy Reaction AMOXICILLIN 11/24/2013 7 - Swelling Date Reviewed: 09/13/2024 Reviewed by: Nohelia Oconnor MA - Fully Assessed Reason for Visit: Results [95] Primary Visit Diagnosis:Trichomoniasis [A59.9] Order(s):EXPEDITED PARTNER TREATMENT [[id number]] Order #: [id number]: 1 metroNIDAZOLE (FLAGYL) 500 mg tabletTake 1 tablet by mouth two times a day for 7 days.Disp: 14 tabletRfl: 0 Prescriptions as of 09/27/2024 - metroNIDAZOLE (FLAGYL) 500 mg tablet Take 1 tablet by mouth two times a day for 7 days. - etonogestrel (NEXPLANON) 68 mg impl subdermal implant 68 mg by SUBDERMAL route one time only. Problem List As Of Date 09/27/2024 Noted Resolved ADHD (attention deficit hyperactivity disorder)*06/02/2014 Acute hepatitis [B17.9] 01/11/2021 Bipolar disorder (HCC) [F31.9] 06/03/2018 History of drug abuse (HCC) [F19.11] 01/11/2021 06/24/2024 with uncertain dates in first trimest*10/22/2023 01/05/2024 Methamphetamine use (HCC) [F15.10] 10/22/2023 Marijuana use during [O99.320, F12.90]10/22/2023 06/24/2024 Tobacco smoking complicating in third*10/22/2023 06/24/2024 Exercise-induced asthma [J45.990] 10/22/2023 06/24/2024 HSV (herpes simplex virus) infection [B00.9] 10/22/2023 Generalized anxiety disorder [F41.1] 10/22/2023 06/24/2024 (more content not included)... Normal [facility] BACTERIAL VAGINOSIS NAATon 1 11-14-2023 Lactobacillus crispatus+gasseri+pierre senii + Gardnerella vaginalis + Atopobium vaginae rRNA JOSE+probe Ql (Vag fld) Not detected Normal Not detected [facility] Comment on above: Order Comment: Speci men Type: SWABOrdering Facility: [facility] Address: [address] [place] [address] Performed By: #### 3 6902-5, BVAMP ####[facility] LABCLIA [id number] [place] [address] [place] C. trachomatis+N. gonorrhoea e DNA JOSE+probe Ql (Unsp spec)on 09-13-2024 C. trachomatis rRNA JOSE+probe Ql (Unsp spec) Not detected Normal Not detected [facility] Comment on above: Order Comment: Speci men Type: SWABOrdering Facility: [facility] Address: [address] [place] [address] Performed By: #### 3 6902-5, BVAMP ####[facility] LABCLIA [id number] [place] [address] [place] N. gonorrhoeae rRNA JOSE+probe Ql (Unsp spec) Not detected Normal Not detected [facility] Comment on above: Order Comment: Speci men Type: SWABOrdering Facility: [facility] Address: [address] [place] [address] Performed By: #### 3 6902-5, BVAMP ####[facility] LABCLIA [id number] [address] OF [place] DAX/TRICHOMONAS NAATon 1 11-14-2023 C. glabrata RNA JOSE+probe Ql (Vag fld) Not detected Normal Not detected [facility] Comment on above: Order Comment: Speci men Type: SWABOrdering Facility: [facility] Address: [address] [place] [address] Performed By: #### C VTV ####[facility] LABIA [id number] [place] [address] [place] [facility] OF [place] Dax sp DNA JOSE+probe Ql (Vag fld) Not detected Normal Not detected [facility] Comment on above: Order Comment: Speci men Type: SWABOrdering Facility: [facility] Address: [address] [place] [address] Result Comment: The Dax species group target includes C. albicans, C. tropicalis, C. parapsilosis, and C. dubliniensis. Performed By: #### C VTV ####[facility] LABIA [id number] [address] [place] T. vaginalis DNA JOSE+probe Ql (Unsp spec) Not detected Normal Not detected [facility] Comment on above: Order Comment: Speci men Type: SWABOrdering Facility: [facility] Address: [address] [place] [address] Performed By: #### C VTV ####[facility] LABCLIA [id number] [place] [address] [place] CNOVon 09-13-2024 CNOV Office Visit (OBGYWM ) ----- [place] ([id number]) 2000 [place] [facility] Date Time Provider Department 09/13/24 1:40 PM KARINA KWONG During your visit today, we recorded the following information about you: Blood pressure Weight 118/76 77.5 kg Karina Kwong MD 09/13/2024 2:20 PM Signed Transplant Immunologist offered: Patient declines. Has not been with partner again but is still having discharge. Worried that it was not completely treated, Has only been a week since finishing treatment for trich. He has not been treated Jackson Ny is a 24 year old female who presents for vaginal discharge for 3- 4 days. Vaginal discharge: moderate amount, foul smelling, garcia, and brown. Itching: Some Dyspareunia: No Fever/chills: No Abdominal pain: No Bladder: Negative for dysuria or frequency Bowel: No blood in stool, pain with BM, tarry stool, persistent diarrhea or constipation Any new sexual partners or concern for STD exposure: No Any history of STDs: HSV and trichomonas Does your partner have any new complaints: No Are you currently taking any medications to treat vaginitis: No Do you use feminine sprays, douches or deodorants: No Menstrual cycle: cycles every 28-30 days and 9 days of flow Contraception: Nexplanon Last pap: 2023, normal Past medical, surgical, social history, medications and allergies reviewed and updated. OBJECTIVE: SENSITIVE EXAM: The sensitive examination was discussed with the Patient or Patient's Authorized Surgical Instruments Inspector. As applicable, any other physician, advance practice provider, medical student, or other health professional student that will be observing or involved in the sensitive examination for educational or training purposes was discussed with the Patient or Authorized Surgical Instruments Inspector. The Patient or Authorized Surgical Instruments Inspector has agreed to proceed with the sensitive examination. (Sensitive examination includes inspection and/or palpation of the breasts, pelvis, prostate and anorectal regions). BP 118/76 Wt 170 lb 12.8 oz (77.5kg) LMP 08/21/2023 GENERAL: Well developed, well nourished in no apparent distress ABDOMEN: soft, non-tender, and no masses PELVIC: external genitalia normal, normal Bartholin's glands, urethra, Mccomb's glands, no vulvar lesions, no cervical lesions, good vaginal support, physiologic discharge present, normal appearing perineal body and perianal region BIMANUAL: deferred. RECTOVAGINAL: deferred. ASSESSMENT/PLAN: Vaginal culture collected STD screening: Accepted STD check for Gonorrhea and Chlamydia. Any new medications given to the patient have been explained as to directions, reasons for prescribing and side effects. Perineal hygiene and safe sex were discussed with the patient. Discussed EPT. Will call with his information MD lEvin Kruger Reanna, MA 09/13/2024 1:35 PM Signed Minimizing irritation of the vulva (area around the vagina) Wear white cotton underwear. Avoid synthetic fabrics and tight clothing. Sleep wearing shorts or pajama bottoms without underwear. Shower as soon as possible after exercise. Avoid clothing detergents and soaps with perfumes or dyes. Use warm (not hot) water to wash the vulva and if you use soap use a product designed for sensitive skin (like Dove or Cetaphil). Do not douche or use creams/powders in the vulvar area unless instructed by your physician. If you must douche, use only plain warm water. Make sure the vulva is dry before dressing by patting dry with a towel. Avoid vigorous rubbing with the towel. You may want to use the blow dryer (on the cool setting only!) on the vulva. The most important way to let your body heal is by avoiding scratching. Many patients find it difficult to avoid scratching at night when they are most aware of the itchiness. You can try taking Benadryl just before bedtime. Some women find it helpful to wear cotton gloves to bed to avoid scratching at night. Allergies As of Date: 09/13/2024 Noted Allergy Reaction AMOXICILLIN 11/24/2013 7 - Swelling Date Reviewed: 09/13/2024 Reviewed by: Nohelia Oconnor MA - Fully Assessed Reason for Visit: Vaginal Problem [117] Primary Visit Diagnosis:Vaginal discharge [N89.8] Order(s):GONORRHEA/CHLAMY MARK NAAT [SQGCCT] Order #: [id number]. #:[id number] BACTERIAL VAGINOSIS NAAT [SQBVAMP] Order #: [id number]. #:[id number] DAX/TRICHOMONAS NAAT [SQCVTV] Order #: [id number]. #:[id number] Prescriptions as of 09/13/2024 - etonogestrel (NEXPLANON) 68 mg impl subdermal implant 68 mg by SUBDERMAL route one time only. Problem List As Of Date 09/13/2024 Noted Resolved ADHD (attention deficit hyperactivity disorder)*06/02/2014 Acute hepatitis [B17.9] 01/11/2021 Bipolar disorder (HCC) [F31.9] 06/03/2018 History of drug abuse (HCC) [F19.11] 01/11/2021 06/24/2024 (more content not included)... Normal [facility] 09-07-2024 CNPN Telephone (OBGYWM) ----- [place] ([id number]) 2000 F [facility] Date Time Provider Department 09/07/24 REAGAN CAMPOS During your visit today, we recorded the following information about you: Alyson Barksdale RN 09/07/2024 3:10 PM Signed Patient calling c/o HSV outbreak. Has one painful lesion. Asking if she needs appt or if she can get rx for medication without being seen? Pharmacy correct. AUDRA Winters Emily, APRN.CNP 09/07/2024 3:43 PM Signed Will start episodic treatment. Rx sent. Take 1 g Valtrex daily for 5 days. No intercourse until 2 weeks after lesions have completely resolved. Recommend follow up to discuss suppressive therapy. Reagan Campos APRN.Karina Mccarthy RN 09/07/2024 3:46 PM Signed Patient notified. Karina Manning RN Allergies As of Date: 09/07/2024 Noted Allergy Reaction AMOXICILLIN 11/24/2013 7 - Swelling Date Reviewed: 08/29/2024 Reviewed by: Reagan Campos APRN.UNDERGROUND UTILITY LOCATOR - Fully Assessed Reason for Visit: HSV [Other] Primary Visit Diagnosis:HSV (herpes simplex virus) infection [B00.9] Order(s):valACYclovir (VALTREX) 1 gram tabletTake 1 tablet by mouth once daily for 5 days.Disp: 5 tabletRfl: 2 Prescriptions as of 09/07/2024 - valACYclovir (VALTREX) 1 gram tablet Take 1 tablet by mouth once daily for 5 days. Problem List As Of Date 09/07/2024 Noted Resolved ADHD (attention deficit hyperactivity disorder)*06/02/2014 Acute hepatitis [B17.9] 01/11/2021 Bipolar disorder (HCC) [F31.9] 06/03/2018 History of drug abuse (HCC) [F19.11] 01/11/2021 06/24/2024 with uncertain dates in first trimest*10/22/2023 01/05/2024 Methamphetamine use (HCC) [F15.10] 10/22/2023 Marijuana use during [O99.320, F12.90]10/22/2023 06/24/2024 Tobacco smoking complicating in third*10/22/2023 06/24/2024 Exercise-induced asthma [J45.990] 10/22/2023 06/24/2024 HSV (herpes simplex virus) infection [B00.9] 10/22/2023 Generalized anxiety disorder [F41.1] 10/22/2023 06/24/2024 History of trichomoniasis [Z86.19] 10/22/2023 Allergy to amoxicillin [Z88.0] 10/22/2023 06/24/2024 Nausea and vomiting during [O21.9] 10/22/2023 01/05/2024 History of posttraumatic stress disorder (PTSD)*10/22/2023 06/24/2024 Rh negative state in antepartum period [O26.899*11/04/2023 06/24/2024 Gastroesophageal reflux disease without esophag*03/16/2024 Supervision of high risk in third tri*03/16/2024 06/24/2024 Elevated glucose tolerance test [R73.09] 03/17/2024 06/24/2024 Anemia during in third trimester [O99*03/17/2024 06/24/2024 Excessive growth affecting management of *04/04/2024 06/24/2024 BP check [Z01.30] 05/11/2024 06/24/2024 Pre-eclampsia in third trimester [O14.93] 05/11/2024 06/24/2024 Elevated blood pressure reading [R03.0] 05/11/2024 06/24/2024 Prescriptions ordered this encounter Disp Refills Start End VALACYCLOVIR 1 GRAM TABLET 5 ta* 2 09/07/2024 09/12/2024 Route: ORAL Sig: Take 1 tablet by mouth once daily for 5 days. Encounter Status:Closed by KARINA MANNING on 09/07/24 [facility]ra 09-02-2024 JASON Telephone (OBGYWM) ----- [place] ([id number]) 2000 [place] [facility] Date Time Provider Department 09/02/24 REAGAN CAMPOS During your visit today, we recorded the following information about you: Karina Manning RN 09/02/2024 10:28 AM Signed Patient called asking for a medication to dry up her milk. States she was prescribed medication for STI and she can't breastfeed while taking it. She stopped the baby and has only pumped once. Plans to stop all together. Discussed wearing a tight supportive bra. Can a medication be prescribed? AUDRA Mcallister Emily, APRN.LORI 09/02/2024 10:32 AM Signed She can breastfeed while taking Flagyl. Recommend slowly weaning pumping/. Cool compresses and tight bra. Can trial Sudafed. Reagan Campos APRN.Ruben Alvarez RN 09/02/2024 10:40 AM Signed Pt notified and voiced understanding. Ruben Vilchis RN Allergies As of Date: 09/02/2024 Noted Allergy Reaction AMOXICILLIN 11/24/2013 7 - Swelling Date Reviewed: 08/29/2024 Reviewed by: Reagan Campos APRN.UNDERGROUND UTILITY LOCATOR - Fully Assessed Reason for Visit: Patient Question [7897] Prescriptions as of 09/02/2024 - metroNIDAZOLE (FLAGYL) 500 mg tablet Take 1 tablet by mouth two times a day for 7 days. Problem List As Of Date 09/02/2024 Noted Resolved ADHD (attention deficit hyperactivity disorder)*06/02/2014 Acute hepatitis [B17.9] 01/11/2021 Bipolar disorder (HCC) [F31.9] 06/03/2018 History of drug abuse (HCC) [F19.11] 01/11/2021 06/24/2024 with uncertain dates in first trimest*10/22/2023 01/05/2024 Methamphetamine use (HCC) [F15.10] 10/22/2023 Marijuana use during [O99.320, F12.90]10/22/2023 06/24/2024 Tobacco smoking complicating in third*10/22/2023 06/24/2024 Exercise-induced asthma [J45.990] 10/22/2023 06/24/2024 HSV (herpes simplex virus) infection [B00.9] 10/22/2023 Generalized anxiety disorder [F41.1] 10/22/2023 06/24/2024 History of trichomoniasis [Z86.19] 10/22/2023 Allergy to amoxicillin [Z88.0] 10/22/2023 06/24/2024 Nausea and vomiting during [O21.9] 10/22/2023 01/05/2024 History of posttraumatic stress disorder (PTSD)*10/22/2023 06/24/2024 Rh negative state in antepartum period [O26.899*11/04/2023 06/24/2024 Gastroesophageal reflux disease without esophag*03/16/2024 Supervision of high risk in third tri*03/16/2024 06/24/2024 Elevated glucose tolerance test [R73.09] 03/17/2024 06/24/2024 Anemia during in third trimester [O99*03/17/2024 06/24/2024 Excessive growth affecting management of *04/04/2024 06/24/2024 BP check [Z01.30] 05/11/2024 06/24/2024 Pre-eclampsia in third trimester [O14.93] 05/11/2024 06/24/2024 Elevated blood pressure reading [R03.0] 05/11/2024 06/24/2024 Encounter Status:Closed by RUBEN VILCHIS on 09/02/24 [facility] 08-30-2024 JASON Telephone (OBGYWM) ----- [place] ([id number]) 2000 F [facility] Date Time Provider Department 08/30/24 URBAN BURNETT OBGYWYuki During your visit today, we recorded the following information about you: Ruben Vilchis, AUDRA 08/30/2024 10:36 AM Signed Pt states she saw lab results from 08/28/24 on Mychart and wanting to know what treatment consists of. Advised her message would be sent to provider metal fabrication supervisor as is out of office today. Please advise in EH absence. AUDRA Simmons Renee, APRN.LORI 08/30/2024 2:19 PM Signed BV positive. To treat with Flagyl 500mg PO BID for 7 days. 1) No alcohol during treatment and for 24 hours after last dose. 2) No intercourse during treatment. 3) Probiotic by mouth once daily for 30 days or as needed. Amarilis Berry APRN.Alyson Siegel RN 08/30/2024 2:27 PM Signed Patient notified of positive trich result, not BV. Advised any sexual partner needs treatment too. She is also asking about the positive HSV blood work and what she needs to do next since the culture of lesion was negative. Aware is back in office tomorrow. AUDRA Winters Emily, APRN.UNDERGROUND UTILITY LOCATOR 2024 7:38 AM Signed Culture was negative, but blood work shows positive IgM so she likely had a recent infection. Has she noticed any lesions since I saw her? Reagan Campos APRN.Orly Multani RN 2024 8:32 AM Signed Left message to call office. AUDRA Aaron Trisha, RN 2024 8:43 AM Signed Patient notified. She has not had any new lesions that she noticed. Alyson Barksdale RN Allergies As of Date: 08/30/2024 Noted Allergy Reaction AMOXICILLIN 11/24/2013 7 - Swelling Date Reviewed: 08/29/2024 Reviewed by: Reagan Campos APRN.UNDERGROUND UTILITY LOCATOR - Fully Assessed Reason for Visit: Results [95] Order(s):metroNIDAZOLE (FLAGYL) 500 mg tabletTake 1 tablet by mouth two times a day for 7 days.Disp: 14 tabletRfl: 0 Prescriptions as of 09/01/2024 - metroNIDAZOLE (FLAGYL) 500 mg tablet Take 1 tablet by mouth two times a day for 7 days. Problem List As Of Date 08/30/2024 Noted Resolved ADHD (attention deficit hyperactivity disorder)*06/02/2014 Acute hepatitis [B17.9] 01/11/2021 Bipolar disorder (HCC) [F31.9] 06/03/2018 History of drug abuse (HCC) [F19.11] 01/11/2021 06/24/2024 with uncertain dates in first trimest*10/22/2023 01/05/2024 Methamphetamine use (HCC) [F15.10] 10/22/2023 Marijuana use during [O99.320, F12.90]10/22/2023 06/24/2024 Tobacco smoking complicating in third*10/22/2023 06/24/2024 Exercise-induced asthma [J45.990] 10/22/2023 06/24/2024 HSV (herpes simplex virus) infection [B00.9] 10/22/2023 Generalized anxiety disorder [F41.1] 10/22/2023 06/24/2024 History of trichomoniasis [Z86.19] 10/22/2023 Allergy to amoxicillin [Z88.0] 10/22/2023 06/24/2024 Nausea and vomiting during [O21.9] 10/22/2023 01/05/2024 History of posttraumatic stress disorder (PTSD)*10/22/2023 06/24/2024 Rh negative state in antepartum period [O26.899*11/04/2023 06/24/2024 Gastroesophageal reflux disease without esophag*03/16/2024 Supervision of high risk in third tri*03/16/2024 06/24/2024 Elevated glucose tolerance test [R73.09] 03/17/2024 06/24/2024 Anemia during in third trimester [O99*03/17/2024 06/24/2024 Excessive growth affecting management of *04/04/2024 06/24/2024 BP check [Z01.30] 05/11/2024 06/24/2024 Pre-eclampsia in third trimester [O14.93] 05/11/2024 06/24/2024 Elevated blood pressure reading [R03.0] 05/11/2024 06/24/2024 Prescriptions ordered this encounter Disp Refills Start End METRONIDAZOLE 500 MG TABLET 14 t* 0 08/30/2024 09/06/2024 Route: ORAL Sig: Take 1 tablet by mouth two times a day for 7 days. Encounter Status:Closed by RUBEN VILCHIS on 09/01/24 Normal [facility] BACTERIAL VAGINOSIS NAATon 1 10-29-2023 Lactobacillus crispatus+gasseri+pierre senii + Gardnerella vaginalis + Atopobium vaginae rRNA JOSE+probe Ql (Vag fld) Negative Normal Negative for bacterial vaginosis [facility] Comment on above: Order Comment: Speci men Type: SWABOrdering Facility: [facility] Address: [address] [place] [address] [place] [address] Performed By: #### Hay ALMANZA, [id number] ####[facility] LABCLIA [id number] [place] [address] [place] C. trachomatis+N. gonorrhoea e DNA JOSE+probe Ql (Unsp spec)on 08-29-2024 C. trachomatis rRNA JOSE+probe Ql (Unsp spec) Negative Normal Negative for Chlamydia trachomatis by amplificaton [facility] Comment on above: Order Comment: Speci men Type: SWABOrdering Facility: [facility] Address: [address] [place] [address] Performed By: #### Hay VAMP, 83061-7 ####[facility] LABCLIA [id number] [place] [address] [place] N. gonorrhoeae rRNA JOSE+probe Ql (Unsp spec) Negative Normal Negative for Neisseria gonorrhoeae by amplification [facility] Comment on above: Order Comment: Speci men Type: SWABOrdering Facility: [facility] Address: [address] [place] [address] Performed By: #### Hay VAMP, [id number] ####[facility] LABCLIA [id number] [place] [address] [place] DAX/TRICHOMONAS NAATon 1 10-29-2023 C. glabrata RNA JOSE+probe Ql (Vag fld) Negative Normal Negative for Dax glabrata [facility] Comment on above: Order Comment: Speci men Type: SWABOrdering Facility: [facility] Address: [address] [place] [address] Performed By: #### C VTV ####[facility] LABCLIA [id number] [place] [address] [place] Dax sp DNA JOSE+probe Ql (Vag fld) Negative Normal Negative for Dax species [facility] Comment on above: Order Comment: Speci men Type: SWABOrdering Facility: [facility] Address: [address] [place] [address] Performed By: #### C VTV ####[facility] LABCLIA [id number] [place] [address] [place] T. vaginalis DNA JOSE+probe Ql (Unsp spec) Positive Abnormal Negative for Trichomonas vaginalis by amplification [facility] Comment on above: Order Comment: Speci men Type: SWABOrdering Facility: [facility] Address: [address] [place] [address] Performed By: #### C VTV ####[facility] LABCLIA [id number] [address] [id number] [address] [place] CNOVon 08-29-2024 CNOV Office Visit (OBGYWM ) ----- [place] ([id number]) 2000 [place] [facility] Date Time Provider Department 08/29/24 2:45 PM REAGAN CAMPOS OBLIBBYWM During your visit today, we recorded the following information about you: Blood pressure Weight 102/60 77.2 kg Reagan Campos APRN.UNDERGROUND UTILITY LOCATOR 08/29/2024 3:08 PM Signed Transplant Immunologist offered: Patient declines. Jackson Ny is a 23 year old female who presents for problem visit for STD testing and for a rash. HPI: Jackson presents for Std check and a rash that has been noticed for around 3 days. The rash is near her anus. She has tried her son's diaper cream to provide relief. She states that she is having brown vaginal discharge. Denies odor. She reports vaginal pain. No new sexual partners, but states partner was with someone else while she was healing post-. 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 LMP: 08/21/2023 (Exact Date), Implant Age at Menarche: Age at First : Age at Menopause: Guest House Manager History Comments: Sexual Activity: Yes; Male Contraception: Implant PAST MEDICAL HISTORY Diagnosis Date - Abnormal Pap smear of cervix 07/2019 LSIL - Bacterial vaginosis - Chlamydia infection 07/2019 - Exercise-induced asthma - Generalized anxiety disorder - Herpes simplex virus (HSV) infection - Infectious mononucleosis 01/2017 - Trichimoniasis PAST SURGICAL HISTORY Procedure Laterality Date - NONE FAMILY HISTORY Problem Relation Age of Onset - No Known Problems Father - No Known Problems Sister - No Known Problems Sister - No Known Problems Brother - No Known Problems Brother - No Known Problems Brother - No Known Problems Brother - No Known Problems Brother - No Known Problems Brother - No Known Problems Brother - Stroke Maternal Grandfather - other (Asthma) Other Grandparent Social History Tobacco Use - Smoking status: Former Current packs/day: 0.25 Average packs/day: 0.3 packs/day for 0.5 years (0.1 ttl pk-yrs) Types: Cigarettes - Smokeless tobacco: Never Vaping Use - Vaping status: Former Substance Use Topics - Alcohol use: No - Drug use: Not Currently Frequency: 7.0 times per week Types: Marijuana Current Outpatient Medications Medication Sig - polyethylene glycol 3350 (MIRALAX) 17 gram packet Take 1 Packet by mouth once daily. Dissolve dose in 4 - 8 ounces of liquid and take as directed. As needed for constipation. (Patient not taking: Reported on 08/29/2024) - pantoprazole DR (PROTONIX) 20 mg tablet Take 1 tablet by mouth once daily. (Patient not taking: Reported on 08/29/2024) - vit/iron fum/folic ac (-FOLIC ACID ORAL) Take 1 tablet by mouth once daily. (Patient not taking: Reported on 08/29/2024) No current facility-administered medications for this visit. Allergies As of Date: 08/29/2024 Allergen Noted Reaction AMOXICILLIN 11/24/2013 Swelling Fully Assessed 08/29/2024 REVIEW OF SYSTEMS Expanded ROS: EXAMINATION SUPERVISOR: + vaginal pain, itching, discharge, rash Allergies and current medication updated:Yes SENSITIVE EXAM: The sensitive examination was discussed with the Patient or Patient's Authorized Surgical Instruments Inspector. As applicable, any other physician, advance practice provider, medical student, or other health professional student that will be observing or involved in the sensitive examination for educational or training purposes was discussed with the Patient or Authorized Surgical Instruments Inspector. The Patient or Authorized Surgical Instruments Inspector has agreed to proceed with the sensitive examination. (Sensitive examination includes inspection and/or palpation of the breasts, pelvis, prostate and anorectal regions). EXAM: BP 102/60 Wt 170 lb 3.2 oz (77.2kg) LMP 08/21/2023 GENERAL: pleasant, female in no apparent distress HEENT: Normocephalic, atraumatic, mucus membranes moist, and no lesions CHEST: Normal inspiratory effort PELVIC: + erythema noted around clitoris and urethra, superior labia minora/vestibule normal Bartholin's glands, Mccomb's glands, no vulvar lesions, no cervical lesions, good vaginal support, + thick discharge, normal appearing perineal body and perianal region, + dermatitis noted around anus BIMANUAL: uterus normal size, shape and consistency, no adnexal masses, and non-tender NEURO: alert and oriented x3,exam grossly non-focal EXTREMITIES: normal ASSESSMENT AND PLAN: 1. Screen for STD (sexually transmitted disease) - ICD9: V74.5, ICD10: Z11.3 (primary diagnosis) - Cultures and blood work obtained 2. Vaginal discharge - ICD9: 623.5, ICD10: N89.8 3. Vaginal itching - ICD9: 698.1, ICD10: N89.8 - No lesions noted, but with erythema and pain, concerning for start of HSV infection - Culture obtained to erythematous superior labia minora - No history of genital herpes To treat accordingly. Reagan Campos, SUPERVISOR FRAME ASSEMBLY. (more content not included)... Normal [facility] HBV surface Ag Ql (S)on 08-12 Interpretation and review of laboratory results Normal [facility] HBV surface Ag Ser Qlon 08-12 HBV surface Ag Ql (S) Negative Normal Negative [facility] Comment on above: Order Comment: Speci men Type: BLOOD SPECIMENOrdering Facility: [facility] Address: [address] [place] [address] Performed By: #### 7 3752-8, 5195-3, 40396-5 ####[facility] LABCLIA [id number] [place] [address] [place] HCV Ab Ql (S)on 08-29-2024 Interpretation and review of laboratory results Normal [facility] HCV Ab Ser Qlon 08-29-2024 HCV Ab Ql (S) Negative Normal Negative [facility] Comment on above: Order Comment: Speci men Type: BLOOD SPECIMENOrdering Facility: [facility] Address: [address] [place] [address] Result Comment: The result suggests no evidence of active infection with Hepatitis C virus. Should recent infection be suspected, repeat testing may be considered 4-6 weeks after this draw. Performed By: #### 1 6128-1 ####[facility] LABCLIA [id number] [place] [address] [place] HEPATITIS B SURFACE ANTIGENo n 08-29-2024 HBV surface Ag Ql (S) Negative Negative [facility] HEPATITIS C ANTIBODY IA WITH CONFIRMATIONon 08-29-2024 HCV Ab Ql (S) Negative Negative [facility] Comment on above: The result suggests no evidence of active infection with Hepatitis C virus. Should recent infection be suspected, repeat testing may be considered 4-6 weeks after this draw. HERPES SIMPLEX IGM, WITH REF MICHAEL IGG ABSon 08-29-2024 HSV IGG 1 QUALITATIVE Positive Abnormal Negative [facility] Comment on above: Order Comment: Speci men Type: BLOOD SPECIMENOrdering Facility: [facility] Address: [address] [place] [address] Performed By: #### H SVGM ####[facility] LABCLIA [id number] [place] [address] [place] HSV IGG 2 QUALITATIVE Positive Abnormal Negative [facility] Comment on above: Order Comment: Speci [facility] Type: BLOOD SPECIMENOrdering Facility: [facility] Address: [address] [place] [address] Performed By: #### H SVGM ####[facility] LABCLIA [id number] [place] [address] [place] HSV IGM QUALITATIVE Positive Abnormal Negative [facility] Comment on above: Order Comment: Speci men Type: BLOOD SPECIMENOrdering Facility: [facility] Address: [address] [place] [address] Performed By: #### H SVGM ####[facility] LABCLIA [id number] [place] [address] HSV SEROLOGICAL INTERPRETATION Normal [facility] Comment on above: Order Comment: Speci men Type: BLOOD SPECIMENOrdering Facility: [facility] Address: [address] [place] [address] Result Comment: In t he presence of typical herpes simplex lesion(s), these results suggest one of the following: recent primary HSV-1 or HSV-2 infection, or either of HSV-1 and HSV-2 reinfection, or either of HSV-1 and HSV-2 reactivation. False positive HSV IgM results are common. HSV PCR is strongly recommended, if feasible. Performed By: #### H SVGM ####[facility] LABCLIA [id number] [address] [place] HIV 1+2 Ab IA Qlon 4 HIV 1 and 2 Ab IA.rapid Nom (S/P/Bld) [facility] Comment on above: Test not indicated. HIV 1+2 Ab+HIV1 p24 Ag IA Ql Non-Reactive Nonreactive [facility] HIV immunoassay testing algorithm interpretation (S/P/Bld) [Interp] [facility] Comment on above: No evidence of HIV-1 or HIV-2 infection. Should recent infection be suspected, repeat testing may be considered 2-3 weeks after this draw. [place] Rev. Code 3701.243(E): This information has been disclosed to you from confidential records protected from disclosure by state law. You shall make no further disclosure of this information without the specific, written, and informed release of the individual to whom it pertains or as otherwise permitted by state law. A general authorization for the release of medical or other information is not sufficient for the purpose of the release of HIV test results or diagnoses. [facility] HIV 1 and 2 Ab IA.rapid Nom (S/P/Bld) Normal [facility] Comment on above: Order Comment: Speci men Type: BLOOD SPECIMENOrdering Facility: [facility] Address: [address] [place] [address] Result Comment: Test not indicated. Performed By: #### 7 3752-8, 5195-3, 21166-8 ####[facility] LABCLIA [id number] [place] [address] [place] HIV 1+2 Ab+HIV1 p24 Ag IA Ql Non-Reactive Normal Nonreactive [facility] Comment on above: Order Comment: Speci men Type: BLOOD SPECIMENOrdering Facility: [facility] Address: [address] [place] [address] Performed By: #### 7 3752-8, 5195-3, 88263-5 ####[facility] LABCLIA [id number] [place] [address] [place] HIV immunoassay testing algorithm interpretation (S/P/Bld) [Interp] Normal [facility] Comment on above: Order Comment: Speci men Type: BLOOD SPECIMENOrdering Facility: [facility] Address: [address] [place] [address] Result Comment: No e vidence of HIV-1 or HIV-2 infection. Should recent infection be suspected, repeat testing may be considered 2-3 weeks after this draw. [place] Rev. Code 3701.243(E): This information has been disclosed to you from confidential records protected from disclosure by state law. ???You shall make no further disclosure of this information without the specific, written, and informed release of the individual to whom it pertains or as otherwise permitted by state law. A general authorization for the release of medical or other information is not sufficient for the purpose of the release of HIV test results or diagnoses. Performed By: #### 7 3752-8, 5195-3, 07028-9 ####[facility] LABCLIA [id number] [place] [address] [place] HSV+VZV DNA JOSE+probe Ql (Un sp spec)on 08-29-2024 HSV 1 DNA JOSE+probe Ql (Unsp spec) Not detected Normal Not Detected [facility] Comment on above: Order Comment: Speci men Type: SWABOrdering Facility: [facility] Address: [address] [place] [address] Performed By: #### 3 3027-4 ####[facility] LABCLIA [id number] [place] [address] [place] HSV 2 DNA JOSE+probe Ql (Unsp spec) Not detected Normal Not Detected [facility] Comment on above: Order Comment: Speci men Type: SWABOrdering Facility: [facility] Address: [address] [place] [address] Performed By: #### 3 3027-4 ####[facility] LABCLIA [id number] [place] [address] [place] VZV DNA JOSE+probe Ql (Unsp spec) Not detected Normal Not Detected [facility] Comment on above: Order Comment: Speci men Type: SWABOrdering Facility: [facility] Address: [address] [place] [address] Performed By: #### 3 3027-4 ####[facility] LABIA [id number] [place] [address] [place] Reagin and Treponema pallidu m IgG and IgM [Interp]on 08-29-2024 T. pallidum IgG+IgM IA Ql (S) Non-Reactive Nonreactive [facility] T. pallidum IgG+IgM IA Ql (S) Non-Reactive Normal Nonreactive [facility] Comment on above: Order Comment: Speci men Type: BLOOD SPECIMENOrdering Facility: [facility] Address: [address] [place] [address] Performed By: #### 7 3752-8, 5195-3, 98474-1 ####[facility] LABCLIA [id number] [place] [address] [place] Reagin+T pallidum IgG+IgM Se rPl-Impon 08-29-2024 Reagin and Treponema pallidum IgG and IgM [Interp] Cannot exclude recent Treponemal infection if specimen collected within 7-10 days after appearance of suspect lesions or 2-3 weeks after an exposure. Clinical correlation is required. Normal [facility] Comment on above: Order Comment: Speci men Type: BLOOD SPECIMENOrdering Facility: [facility] Address: [address] [place], [place] [address] [address] Performed By: #### 7 3752-8, 5195-3, 21788-7 ####[facility] LABCLIA [id number] [place] [address] [place] SYPHILIS TREPONEMAL W/REFLEX on 08-29-2024 Reagin and Treponema pallidum IgG and IgM [Interp] Cannot exclude recent Treponemal infection if specimen collected within 7-10 days after appearance of suspect lesions or 2-3 weeks after an exposure. Clinical correlation is required. [facility] UA DIP, URINE (POC)on 2023 BILIRUBIN UA (POCT) Negative Negative [facility] CLARITY UA (POCT) Clear [facility] COLOR UA (POCT) Yellow [facility] GLUCOSE UA (POCT) Negative Negative mg/dL [facility] Hemoglobin Ql (U) Trace-intact Abnormal Negative [facility] Interpretation and review of laboratory results Abnormal [facility] KETONE UA (POCT) Negative Negative mg/dL [facility] LEUKOCYTES UA (POCT) Trace Abnormal Negative [facility] NITRITE UA (POCT) Negative Negative [facility] PH UA (POCT) 6.0 4.5 - 8.0 [facility] Protein Ql (U) Negative Negative mg/dL [facility] SPECIFIC GRAVITY UA (POCT) 1.025 1.005 - 1.030 [facility] UROBILINOGEN UA (POCT) 0.2 Normal E.U./dL [facility] Location:[facility], [address], [place], [id number] [place] [address] POINT OF CARE [facility] URINE OB DIP B/Oon Glucose Ql (U) Negative Neg mg/dL [facility] Interpretation and review of laboratory results Normal [facility] Protein.monoclonal (U) [Mass/Vol] Negative Neg mg/dL [facility] Examination level ultrasound on 04-29-2024 [facility] Radiology Study observation (narrative) [facility] URINE OB DIP B/OOrdered By: Harika Galindo on 04-29-2024 Glucose Ql (U) Negative Neg mg/dL [facility] Interpretation and review of laboratory results Normal [facility] Protein.monoclonal (U) [Mass/Vol] Negative Neg mg/dL [facility] CBC W Auto Differential pane l (Bld)on 04-19-2024 Basophils (Bld) [#/Vol] 0.03 10*3/uL [facility] Basophils/100 WBC (Bld) 0.3 % [facility] Differential cell count method Nom (Bld) Auto [facility] Eosinophils (Bld) [#/Vol] 0.12 10*3/uL [facility] Eosinophils/100 WBC (Bld) 1.1 % [facility] Erythrocyte distribution width (RBC) [Ratio] 12.7 % 11.5 - 15.0 % [facility] Hematocrit (Bld) [Volume fraction] 33.3 % Low 36.0 - 46.0 % [facility] Hemoglobin (Bld) [Mass/Vol] 11.2 g/dL Low 11.5 - 15.5 g/dL [facility] Immature granulocytes (Bld) [#/Vol] 0.09 10*3/uL [facility] Immature granulocytes/100 WBC (Bld) 0.8 % [facility] Interpretation and review of laboratory results Abnormal [facility] Lymphocytes (Bld) [#/Vol] 1.93 10*3/uL [facility] Lymphocytes/100 WBC (Bld) 17.7 % [facility] MCH (RBC) [Entitic mass] 30.9 pg 26.0 - 34.0 pg [facility] MCHC (RBC) [Mass/Vol] 33.6 g/dL 30.5 - 36.0 g/dL [facility] MCV (RBC) [Entitic vol] 91.7 fL 80.0 - 100.0 fL [facility] Monocytes (Bld) [#/Vol] 0.82 10*3/uL [facility] Monocytes/100 WBC (Bld) 7.5 % [facility] Neutrophils (Bld) [#/Vol] 7.91 10*3/uL High [facility] Neutrophils/100 WBC (Bld) 72.6 % [facility] Nucleated RBC (Bld) [#/Vol] [facility] Nucleated RBC/100 WBC (Bld) [Ratio] 0.0 % /100 WBC [facility] Platelet mean volume (Bld) [Entitic vol] 10.8 fL 9.0 - 12.7 fL [facility] Platelets (Bld) [#/Vol] 167 10*3/uL [facility] RBC (Bld) [#/Vol] 3.63 10*6/uL Low 3.90 - 5.2 0 m/uL [facility] WBC (Bld) [#/Vol] 10.90 10*3/uL [facility] Comprehensive metabolic 2000 panelOrdered By: Flaquita Yoon on 04-19-2024 Albumin [Mass/Vol] 3.5 g/dL Low 3.9 - 4.9 g/dL [facility] ALP [Catalytic activity/Vol] 98 U/L 34 - 123 U/L [facility] ALT [Catalytic activity/Vol] 10 U/L 7 - 38 U/L [facility] Anion gap [Moles/Vol] 9 mmol/L 8 - 15 mmol/L [facility] AST [Catalytic activity/Vol] 14 U/L 13 - 35 U/L [facility] Bilirubin [Mass/Vol] mg/dL Low 0.2 - 1 .3 mg/dL [facility] Calcium [Mass/Vol] 9.4 mg/dL 8.5 - 10. 2 mg/dL [facility] Chloride [Moles/Vol] 105 mmol/L 98 - 10 7 mmol/L [facility] CO2 [Moles/Vol] 25 mmol/L 22 - 30 mmol/L [facility] Creatinine [Mass/Vol] 0.42 mg/dL Low 0.58 - 0.96 mg/dL [facility] GFR/1.73 sq M.predicted among non-blacks MDRD (S/P/Bld) [Vol rate/Area] 139 mL/min/{1.73_m2} - PINF [facility] Comment on above: Estimated Glomerular Filtration Rate (eGFR) is calculated using the 2020 CKD-EPI creatinine equation. This equation utilizes serum creatinine, sex, and age as parameters. The creatinine assay has traceable calibration to isotope dilution-mass spectrometry. Refer to KDIGO guidelines for clinical interpretation. In patients with unstable renal function, e.g. those with acute kidney injury, the eGFR may not accurately reflect actual GFR. Glucose [Mass/Vol] 124 mg/dL High 74 - 99 mg/dL [facility] Comment on above: The [place] Diab[employer] Association (ADA) provides guidance for cutoff values for fasting glucose and random glucose. The ADA defines fasting as no caloric intake for at least 8 hours. Fasting plasma glucose results between 100 to 125 mg/dL indicate increased risk for diabetes (prediabetes). Fasting plasma glucose results greater than or equal to 126 mg/dL meet the criteria for diagnosis of diabetes. In the absence of unequivocal hyperglycemia, results should be confirmed by repeat testing. In a patient with classic symptoms of hyperglycemia or hyperglycemic crisis, random plasma glucose results greater than or equal to 200 mg/dL meet the criteria for diagnosis of diabetes. Reference: Standards of Medical Care in Diabetes 2016, [place] [employer]. Diabetes Care. 2016.39(Suppl 1). Interpretation and review of laboratory results Abnormal [facility] Potassium [Moles/Vol] 2.7 mmol/L Low 3.7 - 5.1 mmol/L [facility] Protein [Mass/Vol] 6.0 g/dL Low 6.3 - 8.0 g/dL [facility] Sodium [Moles/Vol] 139 mmol/L 136 - 144 mmol/L [facility] Urea nitrogen [Mass/Vol] 6 mg/dL Low 7 - 21 mg/dL [facility] No Panel InformationOrdered By: Flaquita Yoon on 04-19-2024 [facility] URIC ACIDon 04-19-2024 Urate [Mass/Vol] 3.6 mg/dL 2.5 - 6.6 mg/dL [facility] URINE OB DIP B/Oon Glucose Ql (U) Negative Neg mg/dL [facility] Interpretation and review of laboratory results Normal [facility] Protein.monoclonal (U) [Mass/Vol] Negative Neg mg/dL [facility] Urate [Mass/Vol]on 4 Interpretation and review of laboratory results Normal [facility] Examination level ultrasound on 04-01-2024 [facility] Radiology Study observation (narrative) [facility] BACTERIAL VAGINOSIS NAATon 0 02-18-2024 Interpretation and review of laboratory results Normal [facility] Lactobacillus crispatus+gasseri+pierre senii + Gardnerella vaginalis + Atopobium vaginae rRNA JOSE+probe Ql (Vag fld) Negative Negative for bacterial vaginosis [facility] C. trachomatis+N. gonorrhoea e DNA JOSE+probe Ql (Unsp spec)on 02-18-2024 C. trachomatis rRNA JOSE+probe Ql (Unsp spec) Negative Negative for Chlamydia trachomatis by amplificaton [facility] Interpretation and review of laboratory results Normal [facility] N. gonorrhoeae rRNA JOSE+probe Ql (Unsp spec) Negative Negative for Neisseria gonorrhoeae by amplification [facility] DAX/TRICHOMONAS NAATon 0 02-18-2024 C. glabrata RNA JOSE+probe Ql (Vag fld) Negative Negative for Dax glabrata [facility] Dax sp DNA JOSE+probe Ql (Vag fld) Negative Negative for Dax species [facility] Interpretation and review of laboratory results Normal [facility] T. vaginalis DNA JOSE+probe Ql (Unsp spec) Negative Negative for Trichomonas vaginalis by amplification [facility] Microscopic observation Gram stain Nom (Vag fld)Ordered By: Melissa Siddiqi on 02-03-2024 Bacterial Vaginosis BACTERIAL VAGINOSIS RESULT: Stain results consistent with normal vaginal odalys. [facility] Bacterial Vaginosis No Yeast observed [facility] Bacterial Vaginosis No Polymorphonuclear Leukocytes [facility] Examination level ultrasound on 01-05-2024 [facility] URINE OB DIP B/Oon 4 Glucose Ql (U) Negative Neg mg/dL [facility] Protein.monoclonal (U) [Mass/Vol] Negative Neg mg/dL [facility] URINE OB DIP B/Oon 4 Glucose Ql (U) Negative Neg mg/dL [facility] Protein.monoclonal (U) [Mass/Vol] Negative Neg mg/dL [facility] BACTERIAL VAGINOSIS NAATon 0 07-07-2023 Lactobacillus crispatus+gasseri+pierre senii + Gardnerella vaginalis + Atopobium vaginae rRNA JOSE+probe Ql (Vag fld) Negative Negative for bacterial vaginosis [facility] C. trachomatis+N. gonorrhoea e DNA JOSE+probe Ql (Unsp spec)on 07-07-2023 C. trachomatis rRNA JOSE+probe Ql (Unsp spec) Negative Negative for Chlamydia trachomatis by amplificaton [facility] N. gonorrhoeae rRNA JOSE+probe Ql (Unsp spec) Negative Negative for Neisseria gonorrhoeae by amplification [facility] DAX/TRICHOMONAS NAATon 0 07-07-2023 C. glabrata RNA JOSE+probe Ql (Vag fld) Negative Negative for Dax glabrata [facility] Dax sp DNA JOSE+probe Ql (Vag fld) Negative Negative for Dax species [facility] T. vaginalis DNA JOSE+probe Ql (Unsp spec) Negative Negative for Trichomonas vaginalis by amplification [facility] Absolute lymphocyte countOrd ered By: Dr. Draper on 03-12-2023 Lymphocytes Auto (Unsp spec) [#/Vol] 1.17 10*3/uL 0.83-4.51 [facility] Basophil percentageOrdered B y: Dr. Draper on 03-12-2023 Basophil percentage 25-50 SEEN /hpf 0-5 [facility] Basophils/100 WBC (Bld) 0.3 % 0-1 [facility] Bilirubin [Mass/Vol] 0.30 mg/dL 0.20-1.00 [facility] Comment on above: For patients on eltr ombopag therapy, use of Dimension [place] TBIL is not recommended. Chloride [Moles/Vol] 99 mmol/L 98-107 [facility] Eosinophils/100 WBC (Bld) 0.2 % 0-5 [facility] Glucose [Mass/Vol] 108 mg/dL 74-106 [facility] Comment on above: Fasting Glucose resu lt from 100 to 125 mg/dL suggests IMPAIRED HOMEOSTASIS per A.D.A. criteria. Neutrophils (Bld) [#/Vol] 9.6 10*3/uL 2.0-7.7 [facility] Neutrophils/100 WBC (Bld) 80.2 % 47-70 [facility] Potassium [Moles/Vol] 3.4 mmol/L 3.5-5.1 [facility] Protein [Mass/Vol] 8.0 g/dL 6.4-8.2 [facility] Sodium [Moles/Vol] 138 mmol/L 136-145 [facility] WBC (Bld) [#/Vol] 12.0 10*3/uL 4.4-11.0 [facility] Bilirubin Test strip Ql (U)O rdered By: Dr. Draper on 03-12-2023 Bilirubin Ql (U) Negative Negative [facility] Blood erythrocytes count (nu mber/volume)Ordered By: Dr. Draper on 03-12-2023 RBC (Bld) [#/Vol] 4.21 10*6/uL 4.2-5.4 [facility] Blood hemoglobin measurement (mass/volume)Ordered By: Dr. Draper on 03-12-2023 Hemoglobin (Bld) [Mass/Vol] 12.6 g/dL 12.0-15.0 [facility] Blood lymphocytes/100 leukoc ytesOrdered By: Dr. Draper on 03-12-2023 Lymphocytes/100 WBC (Bld) 9.8 % 19-41 [facility] Blood monocytes/100 leukocyt esOrdered By: Dr. Draper on 03-12-2023 Monocytes/100 WBC (Bld) 8.7 % 0-10 [facility] Blood platelet mean volumeOr dered By: Dr. Draper on 03-12-2023 Platelet mean volume (Bld) [Entitic vol] 12.0 fL 6.2-12.0 [facility] Determination of erythrocyte mean corpuscular volume (MCV)Ordered By: Dr. Draper on 03-12-2023 MCV (RBC) [Entitic vol] 91.2 fL 81-99 [facility] Hematocrit Auto (Bld) [Volum e fraction]Ordered By: Dr. Draper on 03-12-2023 Hematocrit (Bld) [Volume fraction] 38.4 % 37-47 [facility] Influenza virus A and B and SARS-CoV-2 (COVID-19) Ag panel - Upper respiratory specimOrdered By: Dr. Draper on 03-12-2023 SARS-CoV-2 (COVID-19) RNA JOSE+probe Ql (Resp) [facility] Ketones Test strip Ql (U)Ord ered By: Dr. Draper on 03-12-2023 Ketones Ql (U) 150 mg/dl Negative [facility] Comment on above: CRITICAL VALUE *HCRI TICAL VALUE VERIFIED. CALLED TO ERLINDA [id number]/12/[id number] Suimt Grant.RESULTS READ BACK BY SAME . Laboratory - Chemistry and C hemistry - challengeOrdered By: Dr. Draper on 03-12-2023 HCG ( test) Ql (U) Negative [facility] Comment on above: Very dilute urine sp ecimens, as indicated by a low specificgravity, may not contain primary care sales representative levels of hCG. If is still suspected, a first morning urinespecimen should be collected 48 hours later and tested. ALP [Catalytic activity/Vol] 69 U/L 45-117 [facility] ALT [Catalytic activity/Vol] 25 U/L 13-56 [facility] CO2 [Moles/Vol] 29.0 mmol/L 21.0-32.0 [facility] Globulin (S) [Mass/Vol] 4.7 g/dL 2.2-4.2 [facility] Urea nitrogen/Creatinine [Mass ratio] 24.5 mg/mg 10-20 [facility] Laboratory - Hematology and Cell countsOrdered By: Dr. Draper on 03-12-2023 Erythrocyte distribution width (RBC) [Entitic vol] 44.4 fL 35.1-43.9 [facility] Erythrocyte distribution width (RBC) [Ratio] 13.2 % 11.6-14.6 [facility] Immature granulocytes/100 WBC (Bld) 0.800 % 0.0-0.9 [facility] Comment on above: IG% - Immature Granu locytes (promyelocytes, myelocytes and metamyelocytes) > 1% indicates that a LEFT SHIFT is Present. MCH (RBC) [Entitic mass] 29.9 pg 27.0-32.0 [facility] Nucleated RBC/100 WBC (Bld) [Ratio] 0 % 0-5 [facility] MCHC Auto (RBC) [Mass/Vol]Or dered By: Dr. Draper on 03-12-2023 MCHC (RBC) [Mass/Vol] 32.8 g/dL 32-36 [facility] Mucus LM Ql (Urine sed)Order ed By: Dr. Draper on 03-12-2023 Mucus Ql (Urine sed) 0 SEEN /hpf [facility] Nitrite Test strip Ql (U)Ord ered By: Dr. Draper on 03-12-2023 Nitrite Ql (U) Positive Negative [facility] No Panel InformationOrdered By: Dr. Draper on 03-12-2023 Estimated Creatinine Clearance Calc 172.16 ml/min [facility] Estimated GFR (MDRD) Amer 199 mL/min >60 [facility] Comment on above: GFR Calc Estimated GFR (MDRD) Non-Af Amer 165 mL/min >60 [facility] Comment on above: Non- GFR Calc Platelets bldOrdered By: Dr. Draper on 03-12-2023 Platelets (Bld) [#/Vol] 251 10*3/uL 150-450 [facility] Protein Test strip Ql (U)Ord ered By: Dr. Draper on 03-12-2023 Protein Ql (U) 30 mg/dl Negative [facility] Serum or plasma albumin areli urement (mass/volume)Ordered By: Dr. Draper on 03-12-2023 Albumin [Mass/Vol] 3.3 g/dL 3.2-5.0 [facility] Serum or plasma albumin/glob ulin mass ratioOrdered By: Dr. Draper on 03-12-2023 Albumin/Globulin [Mass ratio] 0.7 {ratio} 0.9-2.4 [facility] Serum or plasma calcium areli urement (mass/volume)Ordered By: Dr. Draper on 03-12-2023 Calcium [Mass/Vol] 9.9 mg/dL 8.5-10.1 [facility] Serum or plasma creatinine m easurement (mass/volume)Ordered By: Dr. Draper on 03-12-2023 Creatinine [Mass/Vol] 0.49 mg/dL 0.55-1.02 [facility] Comment on above: The validity of the calculated GFR & GFRAA in patients over 70 years has not been determined. Clinical correlation is essential. Serum or plasma urea nitroge n measurement (mass/volume)Ordered By: Dr. Draper on 03-12-2023 Urea nitrogen [Mass/Vol] 12 mg/dL 7-18 [facility] Squamous epithelial cells de tection in urine sediment by light microscopyOrdered By: Dr. Draper on 03-12-2023 Epithelial cells.squamous LM Ql (Urine sed) 0 SEEN /hpf 5-10 [facility] Thin prep Papanicolaou smear with manual screeningOrdered By: Dr. Draper on 03-12-2023 Thin prep Papanicolaou smear with manual screening 12 U/L 15-37 [facility] Thin prep Papanicolaou smear with manual screening 10 5-15 [facility] Urine blood detectionOrdered By: Dr. Draper on 03-12-2023 RBC Ql (U) 250 /ul Negative [facility] RBC Ql (U) 0-5 SEEN /hpf 0-5 [facility] Urine clarityOrdered By: Dr. Draper on 03-12-2023 Clarity (U) Sl. Cloudy Clear [facility] Urine color determinationOrd ered By: Dr. Draper on 03-12-2023 Color (U) Yellow Yellow [facility] Urine glucose detectionOrder ed By: Dr. Draper on 03-12-2023 Glucose Ql (U) Normal mg/dl Normal [facility] Urine leukocyte esterase det ection by dipstickOrdered By: Dr. Draper on 03-12-2023 Leukocyte esterase Test strip Ql (U) 500 /ul Negative [facility] Urine pHOrdered By: Dr. Joseph cazares on 03-12-2023 pH (U) 6.0 [pH] 5.0 - 8.0 [facility] Urine sediment bacteria coun t by microscopy (number/high power field)Ordered By: Dr. Draper on 03-12-2023 Bacteria LM.HPF (Urine sed) [#/Area] 2 /[HPF] None Seen [facility] Urine specific gravity measu rementOrdered By: Dr. Draper on 03-12-2023 Specific gravity (U) [Rel density] 1.020 1.002-1.030 [facility] Urobilinogen Auto test strip Ql (U)Ordered By: Dr. Draper on 03-12-2023 Urobilinogen Ql (U) Normal mg/dl Normal [facility] Culture, urineOrdered By: Danica Bautista on 01-18-2023 Bacteria identified Cx Nom (U) Escherichia coli [facility] Amorphous sediment detection in urine sediment by light microscopyOrdered By: Luis Enrique Bautista on 01-16-2023 Amorphous sediment LM Ql (Urine sed) 2+ [facility] Basophil percentageOrdered B y: Luis Enrique Bautista on 01-16-2023 Basophil percentage >100 SEEN /hpf 0-5 [facility] Bilirubin Test strip Ql (U)O rdered By: Luis Enrique Bautista on 01-16-2023 Bilirubin Ql (U) 3 mg/dL Negative [facility] Comment on above: COLOR OF URINE MAY A FFECT DIPSTICK RESULTS. Ketones Test strip Ql (U)Ord ered By: Luis Enrique Bautista on 01-16-2023 Ketones Ql (U) Negative Negative [facility] Laboratory - Chemistry and C hemistry - challengeOrdered By: Luis Enrique Bautista on 01-16-2023 HCG ( test) Ql (U) Negative [facility] Comment on above: Very dilute urine sp ecimens, as indicated by a low specificgravity, may not contain primary care sales representative levels of hCG. If is still suspected, a first morning urinespecimen should be collected 48 hours later and tested. Mucus LM Ql (Urine sed)Order ed By: Luis Enrique Bautista on 01-16-2023 Mucus Ql (Urine sed) 0 SEEN /hpf [facility] Nitrite Test strip Ql (U)Ord ered By: Luis Enrique Bautista on 01-16-2023 Nitrite Ql (U) Positive Negative [facility] Protein Test strip Ql (U)Ord ered By: Luis Enrique Bautista on 01-16-2023 Protein Ql (U) 30 mg/dl Negative [facility] Squamous epithelial cells de tection in urine sediment by light microscopyOrdered By: Luis Enrique Bautista on 01-16-2023 Epithelial cells.squamous LM Ql (Urine sed) 0-5 SEEN /hpf 5-10 [facility] Urine blood detectionOrdered By: Luis Enrique Bautista on 01-16-2023 RBC Ql (U) 150 /ul Negative [facility] RBC Ql (U) 10-25 SEEN /hpf 0-5 [facility] Urine clarityOrdered By: Ric Bautista on 01-16-2023 Clarity (U) Cloudy Clear [facility] Urine color determinationOrd ered By: Luis Enrique Bautista on 01-16-2023 Color (U) Yellow Yellow [facility] Urine glucose detectionOrder ed By: Luis Enrique Bautista on 01-16-2023 Glucose Ql (U) Normal mg/dl Normal [facility] Urine leukocyte esterase det ection by dipstickOrdered By: Luis Enrique Bautista on 01-16-2023 Leukocyte esterase Test strip Ql (U) 500 /ul Negative [facility] Urine pHOrdered By: Luis Enrique olivares on 01-16-2023 pH (U) 8.0 [pH] 5.0 - 8.0 [facility] Urine sediment bacteria coun t by microscopy (number/high power field)Ordered By: Luis Enrique Bautista on 01-16-2023 Bacteria LM.HPF (Urine sed) [#/Area] 4 /[HPF] None Seen [facility] Urine specific gravity measu rementOrdered By: Luis Enrique Bautista on 01-16-2023 Specific gravity (U) [Rel density] 1.015 1.002-1.030 [facility] Urobilinogen Auto test strip Ql (U)Ordered By: Luis Enrique Bautista on 01-16-2023 Urobilinogen Ql (U) 8 mg/dl Normal [facility] UA DIP, URINE (POC)on 2022 BILIRUBIN UA (POCT) Negative Negative [facility] CLARITY UA (POCT) Cloudy [facility] COLOR UA (POCT) Dark yellow [facility] GLUCOSE UA (POCT) Negative Negative mg/dL [facility] HEMOGLOBIN/BLOOD UA (POCT) Trace-intact Abnormal Negative [facility] KETONE UA (POCT) Negative Negative mg/dL [facility] LEUKOCYTES UA (POCT) Trace Abnormal Negative [facility] NITRITE UA (POCT) Negative Negative [facility] PH UA (POCT) 6.5 4.5 - 8.0 [facility] Protein Ql (U) 30 mg/dL Abnormal Negative mg/dL [facility] SPECIFIC GRAVITY UA (POCT) >=1.030 1.005 - 1.030 [facility] UROBILINOGEN UA (POCT) 0.2 E.U./dL Normal E.U./dL [facility] Culture, urineOrdered By: Dr Celine Quiñonez on 12-16-2022 Bacteria identified Cx Nom (U) Presumptive E. coli [facility] Basophil percentageOrdered B y: Dr. Quiñonez on 12-14-2022 Basophil percentage 25-50 SEEN /hpf 0-5 [facility] Bilirubin Test strip Ql (U)O rdered By: Dr. Quiñonez on 12-14-2022 Bilirubin Ql (U) Negative Negative [facility] Ketones Test strip Ql (U)Ord ered By: Dr. Quiñonez on 12-14-2022 Ketones Ql (U) Negative Negative [facility] Laboratory - Chemistry and C hemistry - challengeOrdered By: Dr. Quiñonez on 12-14-2022 HCG ( test) Ql (U) Negative [facility] Comment on above: Very dilute urine sp ecimens, as indicated by a low specificgravity, may not contain primary care sales representative levels of hCG. If is still suspected, a first morning urinespecimen should be collected 48 hours later and tested. Mucus LM Ql (Urine sed)Order ed By: Dr. Quiñonez on 12-14-2022 Mucus Ql (Urine sed) 0 SEEN /hpf [facility] Nitrite Test strip Ql (U)Ord ered By: Dr. Quiñonez on 12-14-2022 Nitrite Ql (U) Negative Negative [facility] Protein Test strip Ql (U)Ord ered By: Dr. Quiñonez on 12-14-2022 Protein Ql (U) 100 mg/dl Negative [facility] Squamous epithelial cells de tection in urine sediment by light microscopyOrdered By: Dr. Quiñonez on 12-14-2022 Epithelial cells.squamous LM Ql (Urine sed) 0-5 SEEN /hpf 5-10 [facility] Urine blood detectionOrdered By: Dr. Quiñonez on 12-14-2022 RBC Ql (U) 250 /ul Negative [facility] RBC Ql (U) 25-50 SEEN /hpf 0-5 [facility] Urine clarityOrdered By: Dr. Quiñonez on 12-14-2022 Clarity (U) Cloudy Clear [facility] Urine color determinationOrd ered By: Dr. Quiñonez on 12-14-2022 Color (U) Yellow Yellow [facility] Urine glucose detectionOrder ed By: Dr. Quiñonez on 12-14-2022 Glucose Ql (U) Normal mg/dl Normal [facility] Urine leukocyte esterase det ection by dipstickOrdered By: Dr. Quiñonez on 12-14-2022 Leukocyte esterase Test strip Ql (U) 500 /ul Negative [facility] Urine pHOrdered By: Dr. Nadiya barros on 12-14-2022 pH (U) 7.0 [pH] 5.0 - 8.0 [facility] Urine sediment bacteria coun t by microscopy (number/high power field)Ordered By: Dr. Quiñonez on 12-14-2022 Bacteria LM.HPF (Urine sed) [#/Area] 3 /[HPF] None Seen [facility] Urine specific gravity measu rementOrdered By: Dr. Quiñonez on 12-14-2022 Specific gravity (U) [Rel density] 1.010 1.002-1.030 [facility] Urobilinogen Auto test strip Ql (U)Ordered By: Dr. Quiñonez on 12-14-2022 Urobilinogen Ql (U) Normal mg/dl Normal [facility] STREP A MOLECULAR (POC)on Procedural Control Valid [facility] Strep A (POCT) Negative Negative [facility] STREP A MOLECULAR (POC)on Procedural Control Valid [facility] Strep A (POCT) Negative Negative [facility] Procedural Control Valid [facility] Strep A (POCT) Negative Negative [facility] FOOT COMP MIN 3 VWS RTon FOOT COMP MIN 3 VWS RT FOOT COMP MIN 3 VWS RT Ordering Physician: Alexander Andrew MD 07/26/2021 9:31 AM RIGHT FOOT 3 VIEWS: Clinical Statement: Right foot pain. Comparison: None. FINDINGS: 3 views of the right foot were obtained. Bone mineralization is normal. The joint spaces are maintained. No osseous erosions, periostitis or fracture. The soft tissues are unremarkable. IMPRESSION: Unremarkable right foot. This report was electronically signed by Ermias Chopra MD 07/26/2021 11:35 AM Reported By: ERMIAS CHOPRA M.D. Signed By: ERMIAS CHOPRA M.D. [facility] 07-26-2021 [facility] DATE OF SERVICE: 07/26/2021 SUBJECTIVE: This is a 20-year-old female here today with complaint of right lateral foot and ankle pain. She said that her foot fell asleep. When she got up this morning, she went to walk, and she felt a snap and having trouble walking on it. No numbness or tingling distally. No other injury. PAST MEDICAL HISTORY: Significant for anxiety, post-traumatic stress disorder, arthritis, asthma, depression, and some chemical dependency. CURRENT MEDICATIONS: 1. Hydroxyzine. 2. Sertraline. 3. Trazodone. 4. Ibuprofen. ALLERGIES: AMOXICILLIN. SOCIAL HISTORY: Nonsmoker, denies alcohol use currently. FAMILY HISTORY: Heart disease, hypertension, stroke. OBJECTIVE: Her vital signs are stable. She is afebrile. There is mild swelling of the dorsolateral foot. She is tender over the base of the 5th [facility] PATIENT NAME: [place] Sana Maki MEDICAL REC #: [id number] [place] [address] [facility] REPORT [facility] PH[facility]ICIAN metatarsal. The ankle is not swollen or tender. No laxity. Neurovascular is intact distally. TESTS: X-rays of the foot are negative. IMPRESSION: Right foot sprain. PLAN: Ice and elevate several times a day, limit how much she is up and on it, take ibuprofen or Tylenol for pain, and if it is not improving within the next week follow up with an orthopedic doctor. Alexander Andrew MD /[id number] [facility] File#: [id number] END OF DOCUMENT / CHANGE LOG FOLLOWS Last Edited By Ele[employer]. Signed By Alexander Andrew MD #WILLIAMMA Alexander Andrew MD #DELORES on 07/31/2021 09:43 ET on 07/31/2021 09:43 ET Revision Number - 2 [facility] PATIENT NAME: [place] Sana Maki MEDICAL REC #: [id number] [place] [address] [facility] REPORT [facility]IC[facility] Verified/Reviewed by 07/31/21 Stephanie43 DELORES [facility] PATIENT NAME: JACKSON [place] [address] [place] [address] Dr. Maki MEDICAL REC #: [id number] [place] [address] [facility] REPORT [facility]IC[facility] Normal [facility] PLAIN [facility] REPORT Normal [facility] URINE PREGNANCYon 04-18-2021 Beta HCG ( test) Ql (U) Negative Normal NEGATIVE [facility] Comment on above: Performed By: #### L [id number] #### [facility] [address] [place] [id number] UR SPEC GRAV 1.011 Normal 1.005-1.030 [facility] Comment on above: Performed By: #### L [id number] #### [facility] [address] [place] [id number] CHEST 2 VIEWSon 03-30-2019 CHEST 2 VIEWS [place] [address] Patient: JACKSON [place] Phone#: : 2000 Age: 18 Gender: F Pt. Type: ER Account: [id number] Location: [facility] Ordering: FANNY NICOLE Exam Date: 03/30/2019/0:24 Family Phys: NO DOCTOR Charge Code: [id number] Physician: [place] Order #: [id number] DLP Dose#: PROCEDURE: X-RAY CHEST 2 VIEWS COMPARISON: None. INDICATIONS: Trauma FINDINGS: LUNGS: Normal. No significant pulmonary parenchymal abnormalities. VASCULATURE: Normal. Unremarkable pulmonary vasculature. CARDIAC: Normal. No cardiac silhouette abnormality or cardiomegaly. MEDIASTINUM: Normal. No visible mass or adenopathy. PLEURA: Normal. No effusion or pleural thickening. BONES: Normal. No fracture or visible bony lesion. OTHER: Negative. CONCLUSION: No acute disease. Dictated by: Antionette Gant MD on 03/30/2019 at 9:01 Approved by: Antionette Gant MD on 03/30/2019 at 9:01 Normal [facility] CT CHEST W/O CONTRASTon 03-12 CT CHEST W/O CONTRAST [place] [address] Patient: JACKSON [place] Phone#: : 2000 Age: 18 Gender: F Pt. Type: ER Account: [id number] Location: [facility] Ordering: FANNY NICOLE Exam Date: 03/30/2019/1:39 Family Phys: NO DOCTOR Charge Code: [id number] Physician: [place] Order #: [id number] DLP Dose#: 3.20 PROCEDURE: CT CHEST WITHOUT CONTRAST COMPARISON: None. INDICATIONS: Trauma TECHNIQUE: CT images were created without the administration of contrast material. All CT scans at this facility use dose modulation, iterative reconstruction, and/or weight based dosing when appropriate to reduce radiation dose to as low as reasonably achievable. IV CONTRAST: No IV contrast used,0ml TOTAL DOSE: 3.20 CTDIvol(mGy) FINDINGS: Patient motion somewhat limits the evaluation. Limited evaluation in the absence of intravenous contrast. LUNGS: Normal. No visible pulmonary disease. VASCULATURE: Unremarkable in size JEANIE: Limited evaluation for adenopathy in the absence of contrast. MEDIASTINUM: Density in the anterior mediastinum, may represent residual thymus though cannot exclude hemorrhage. CARDIAC: Normal. No enlargement, pericardial thickening, or significant calcification. PLEURA: Normal. No mass or effusion. AORTA: No aortic aneurysm. Cannot evaluate aorta in the absence of contrast. CHEST WALL: Normal. No mass or axillary adenopathy. LIMITED ABDOMEN: Small Nonobstructing calcification in the right lower pole measuring 0.3 cm. An umbilical piercing is incidentally noted. BONES: Normal. No bony lesion or fracture. OTHER: Negative. Continued Report - Page 2 of 2 Patient: J[place]SON [place] Phone#: : 2000 Age: 18 Gender: F Pt. Type: ER Account: [id number] Location: 052 Ordering: FANNY NICOLE Exam Date: 03/30/2019/1:39 Family Phys: NO DOCTOR Charge Code: [id number] Physician: [place] Order #: [id number] DLP Dose#: 3.20 CONCLUSION: 1. No appreciable acute intrathoracic abnormality. 2. Anterior mediastinal soft tissue density likely represents residual thymus though cannot exclude hemorrhage. Dictated by: Antionette Gant MD on 03/30/2019 at 10:03 Approved by: Antionette Gant MD on 03/30/2019 at 10:03 Normal [facility] CT CHEST W/O CONTRAST [place] [address] Patient: JACKSON [place] Phone#: : 2000 Age: 18 Gender: F Pt. Type: ER Account: [id number] Location: 052 Ordering: FANNY NICOLE Exam Date: 03/30/2019/1:39 Family Phys: NO DOCTOR Charge Code: [id number] Physician: [place] Order #: [id number] DLP Dose#: 3.20 PROCEDURE: CT CHEST WITHOUT CONTRAST COMPARISON: None. INDICATIONS: Trauma TECHNIQUE: CT images were created without the administration of contrast material. All CT scans at this facility use dose modulation, iterative reconstruction, and/or weight based dosing when appropriate to reduce radiation dose to as low as reasonably achievable. IV CONTRAST: No IV contrast used,0ml TOTAL DOSE: 3.20 CTDIvol(mGy) FINDINGS: Patient motion somewhat limits the evaluation. Limited evaluation in the absence of intravenous contrast. LUNGS: Normal. No visible pulmonary disease. VASCULATURE: Unremarkable in size JEANIE: Limited evaluation for adenopathy in the absence of contrast. MEDIASTINUM: Density in the anterior mediastinum, may represent residual thymus though cannot exclude hemorrhage. CARDIAC: Normal. No enlargement, pericardial thickening, or significant calcification. PLEURA: Normal. No mass or effusion. AORTA: No aortic aneurysm. Cannot evaluate aorta in the absence of contrast. CHEST WALL: Normal. No mass or axillary adenopathy. LIMITED ABDOMEN: Small Nonobstructing calcification in the right lower pole measuring 0.3 cm. An umbilical piercing is incidentally noted. BONES: Normal. No bony lesion or fracture. OTHER: Negative. Continued Report - Page 2 of 2 Patient: J[place]SON [place] Phone#: : 2000 Age: 18 Gender: F Pt. Type: ER Account: [id number] Location: 052 Ordering: FANNY NICOLE Exam Date: 03/30/2019/1:39 Family Phys: NO DOCTOR Charge Code: [id number] Physician: [place] Order #: [id number] DLP Dose#: 3.20 CONCLUSION: 1. No appreciable acute intrathoracic abnormality. 2. Anterior mediastinal soft tissue density likely represents residual thymus though cannot exclude hemorrhage. Dictated by: Antionette Gant MD on 03/30/2019 at 10:03 Approved by: Antionette Gant MD on 03/30/2019 at 10:03 Normal [facility] DRUG SCREEN URINE MEDICon Amphetamines Ql (U) Positive Normal [facility] Comment on above: Performed By: #### 2 [id number] #### [place] [address] B-DIAZEPINES Positive Normal [facility] Comment on above: Performed By: #### 2 [id number] #### [facility],[address] [place], [place] [id number] BARBITURATES Negative Normal [facility] Comment on above: Performed By: #### 2 [id number] #### [facility],[address] [place], [place] [id number] Cocaine Ql (U) Negative Normal [facility] Comment on above: Performed By: #### 2 [id number] #### [place] [address] DRUG SCREEN URINE MEDIC Normal [facility] Comment on above: Result Comment: DRUG SCREEN - URINE Performed By: #### 2 [id number] #### [facility],[address] [place], [place] [id number] Methadone Ql (U) Negative Normal [facility] Comment on above: Performed By: #### 2 [id number] #### [facility],[address] [place], [place] [id number] Opiates Ql (U) Negative Normal [facility] Comment on above: Performed By: #### 2 [id number] #### [facility],[address] [place] [address] PCP Negative Normal [facility] Comment on above: Performed By: #### 2 [id number] #### [facility],[address] [place] [address] TCA Negative Normal [facility] Comment on above: Performed By: #### 2 [id number] #### [facility],[address] [place], [place] [id number] THC Positive Normal [facility] Comment on above: Result Comment: LUCI ENTS RECEIVING PROTON PUMP INHIBITORS MAY DEMONSTRATE FALSE POSITIVE THC/CANNABINOID RESULTS. AN ALTERNATIVE CONFIRMATORY METHOD SHOULD BE CONSIDERED TO VERIFY POSITIVE RESULTS. Performed By: #### 2 [id number] #### [facility],[address] [place] [address] PELVIS 1 or 2 VIEWSon 2018 PELVIS 1 or 2 [place] [address] Patient: [place] Phone#: : 2000 Age: 18 Gender: F Pt. Type: ER Account: [id number] Location: [facility] Ordering: FANNY NICOLE Exam Date: 03/30/2019/0:26 Family Phys: NO DOCTOR Charge Code: 940321 Physician: [place] Order #: [id number] DLP Dose#: PROCEDURE: X-RAY PELVIS AP COMPARISON: None. INDICATIONS: Trauma FINDINGS: BONES: Normal. No significant arthropathy or acute abnormality. SOFT TISSUES: Negative. No visible soft tissue swelling. EFFUSION: None visible. OTHER: Negative. CONCLUSION: 1. No acute osseous abnormality. Dictated by: Antionette Gant MD on 03/30/2019 at 9:03 Approved by: Antionette Gant MD on 03/30/2019 at 9:03 Normal [facility] URINEon 03-30-2019 Beta HCG ( test) Ql (U) Negative Normal NEGATIVE [facility] Comment on above: Performed By: #### 2 [id number] #### [facility],[address] [place] [address] EXTERNAL QC DONE? YES Normal [facility] Comment on above: Performed By: #### 2 [id number] #### [facility],[address] [place] [address] INTERNAL QC PASS Normal [facility] Comment on above: Performed By: #### 2 [id number] #### [facility],[address] [place] [address] Vital Signs Date Time Vital Sign Value Performing Clinician Facility 05-08-2025 13:34-0400 Body mass index (BMI) [Ratio] 32.12 kg/m2 SUPERVISOR FRAME ASSEMBLY.UNDERGROUND UTILITY LOCATOR Work Phone: [facility] 05-08-2025 13:34-0400 Body weight 90.27 kg SUPERVISOR FRAME ASSEMBLY.UNDERGROUND UTILITY LOCATOR Work Phone: [facility] 05-08-2025 13:34-0400 Diastolic blood pressure 70 mm[Hg] SUPERVISOR FRAME ASSEMBLY.UNDERGROUND UTILITY LOCATOR Work Phone: [facility] 05-08-2025 13:34-0400 Heart rate 82 /min SUPERVISOR FRAME ASSEMBLY.UNDERGROUND UTILITY LOCATOR Work Phone: [facility] 05-08-2025 13:34-0400 Respiratory rate 16 /min SUPERVISOR FRAME ASSEMBLY.UNDERGROUND UTILITY LOCATOR Work Phone: [facility] 05-08-2025 13:34-0400 SaO2% (BldA) [Mass fraction] 98 % Kelli Older SUPERVISOR FRAME ASSEMBLY.UNDERGROUND UTILITY LOCATOR Work Phone: [facility] 05-08-2025 13:34-0400 Systolic blood pressure 112 mm[Hg] Kelli Older SUPERVISOR FRAME ASSEMBLY.UNDERGROUND UTILITY LOCATOR Work Phone: [facility] 04-24-2025 18:10-0400 Body mass index (BMI) [Ratio] 31.46 kg/m2 Binta Hathaway SUPERVISOR FRAME ASSEMBLY.UNDERGROUND UTILITY LOCATOR Work Phone: [facility] 04-24-2025 18:10-0400 Body temperature 98.6 [degF] Binta Hathaway SUPERVISOR FRAME ASSEMBLY.UNDERGROUND UTILITY LOCATOR Work Phone: [facility] 04-24-2025 18:10-0400 Body weight 88.4 kg Binta Hathaway SUPERVISOR FRAME ASSEMBLY.UNDERGROUND UTILITY LOCATOR Work Phone: [facility] 04-24-2025 18:10-0400 Diastolic blood pressure 76 mm[Hg] Binta Hathaway SUPERVISOR FRAME ASSEMBLY.UNDERGROUND UTILITY LOCATOR Work Phone: [facility] 04-24-2025 18:10-0400 Heart rate 65 /min Binta Hathaway SUPERVISOR FRAME ASSEMBLY.UNDERGROUND UTILITY LOCATOR Work Phone: [facility] 04-24-2025 18:10-0400 Respiratory rate 18 /min Binta Hathaway SUPERVISOR FRAME ASSEMBLY.UNDERGROUND UTILITY LOCATOR Work Phone: [facility] 04-24-2025 18:10-0400 SaO2% (BldA) [Mass fraction] 100 % Binta Hathaway SUPERVISOR FRAME ASSEMBLY.UNDERGROUND UTILITY LOCATOR Work Phone: [facility] 04-24-2025 18:10-0400 Systolic blood pressure 112 mm[Hg] Binta Hathaway SUPERVISOR FRAME ASSEMBLY.UNDERGROUND UTILITY LOCATOR Work Phone: [facility] 04-15-2025 18:16-0400 Body temperature 97.1 [degF] Dr. Tremayne Quiñonez MD Work Phone: [facility] 04-15-2025 18:16-0400 Diastolic blood pressure 72 mm[Hg] Dr. Tremayne Quiñonez MD Work Phone: [facility] 04-15-2025 18:16-0400 Heart rate 81 /min Dr. Tremayne Quiñonez MD Work Phone: 9(520)006-592443 [place] [address] 04-15-2025 18:16-0400 Respiratory rate 16 /min Dr. Tremayne Quiñonez MD Work Phone: 5(552)173-319543 [place] [address] 04-15-2025 18:16-0400 SaO2% (BldA) [Mass fraction] 98 % Dr. Tremayne Quiñonez MD Work Phone: 3(399)055-642143 [place] [address] 04-15-2025 18:16-0400 Systolic blood pressure 111 mm[Hg] Dr. Tremayne Quiñonez MD Work Phone: 9(670)527-528110 [address] 04-15-2025 17:29-0400 Body height 167.[address] Tremayne Quiñonez MD Work Phone: 7(600)524-319510 [address] 04-15-2025 17:29-0400 Body mass index (BMI) [Ratio] 32.4 kg/m2 Dr. Tremayne Quiñonez MD Work Phone: [facility] 04-15-2025 17:29-0400 Body weight 91.[address] Tremayne Quiñonez MD Work Phone: [facility] 03-22-2025 15:17-0400 Body mass index (BMI) [Ratio] 31.64 kg/m2 Karina Kwong MD Work Phone: [facility] 03-22-2025 15:17-0400 Body weight 88.91 kg Karina Kwong MD Work Phone: [facility] 03-22-2025 15:17-0400 Diastolic blood pressure 74 mm[Hg] Karina Kwong MD Work Phone: [facility] 03-22-2025 15:17-0400 Systolic blood pressure 116 mm[Hg] Karina Kwong MD Work Phone: [facility] 03-10-2025 14:57-0400 Body height 167.6 cm Ruthie Luna MD Work Phone: [facility] 03-10-2025 14:57-0400 Body mass index (BMI) [Ratio] 30.93 kg/m2 Ruthie Luna MD Work Phone: [facility] 03-10-2025 14:57-0400 Body temperature 98.6 [degF] Ruthie Luna MD Work Phone: [facility] 03-10-2025 14:57-0400 Body weight 86.91 kg Ruthie Luna MD Work Phone: [facility] 03-10-2025 14:57-0400 Diastolic blood pressure 70 mm[Hg] Ruthie Luna MD Work Phone: [facility] 03-10-2025 14:57-0400 Heart rate 95 /min Ruthie Luna MD Work Phone: [facility] 03-10-2025 14:57-0400 SaO2% (BldA) [Mass fraction] 98 % Ruthie Luna MD Work Phone: [facility] 03-10-2025 14:57-0400 Systolic blood pressure 110 mm[Hg] Ruthie Luna MD Work Phone: [facility] 02-22-2025 13:40-0400 Body mass index (BMI) [Ratio] 30.38 kg/m2 Binta Carcamo APRN.CNYuki Work Phone: [facility] 02-22-2025 13:40-0400 Body weight 85.37 kg Binta Carcamo APRN.CNM Work Phone: [facility] 02-22-2025 13:40-0400 Diastolic blood pressure 60 mm[Hg] Binta Carcamo APRN.CNM Work Phone: [facility] 02-22-2025 13:40-0400 Systolic blood pressure 118 mm[Hg] Binta Carcamo APRN.CNYuki Work Phone: [facility] 01-12-2025 08:19-0400 Body mass index (BMI) [Ratio] 29.54 kg/m2 Reagan Haury SUPERVISOR FRAME ASSEMBLY.UNDERGROUND UTILITY LOCATOR Work Phone: [facility] 01-12-2025 08:19-0400 Body weight 83.01 kg Reagan Mathurury SUPERVISOR FRAME ASSEMBLY.UNDERGROUND UTILITY LOCATOR Work Phone: [facility] 01-12-2025 08:19-0400 Diastolic blood pressure 60 mm[Hg] Reagan Haury SUPERVISOR FRAME ASSEMBLY.UNDERGROUND UTILITY LOCATOR Work Phone: [facility] 01-12-2025 08:19-0400 Systolic blood pressure 112 mm[Hg] Reagan Haury SUPERVISOR FRAME ASSEMBLY.UNDERGROUND UTILITY LOCATOR Work Phone: [facility] 12-04-2024 14:25-0500 Body mass index (BMI) [Ratio] 29.11 kg/m2 Feli Moomaw SUPERVISOR FRAME ASSEMBLY.UNDERGROUND UTILITY LOCATOR Work Phone: [facility] 12-04-2024 14:25-0500 Body temperature 99.5 [degF] Feli Moomaw SUPERVISOR FRAME ASSEMBLY.UNDERGROUND UTILITY LOCATOR Work Phone: [facility] 12-04-2024 14:25-0500 Body weight 81.8 kg Feli Moomaw SUPERVISOR FRAME ASSEMBLY.UNDERGROUND UTILITY LOCATOR Work Phone: [facility] 12-04-2024 14:25-0500 Diastolic blood pressure 82 mm[Hg] Feli Moomaw SUPERVISOR FRAME ASSEMBLY.UNDERGROUND UTILITY LOCATOR Work Phone: [facility] 12-04-2024 14:25-0500 Heart rate 108 /min Feli Moomaw SUPERVISOR FRAME ASSEMBLY.UNDERGROUND UTILITY LOCATOR Work Phone: [facility] 12-04-2024 14:25-0500 Respiratory rate 20 /min Feli Moomaw SUPERVISOR FRAME ASSEMBLY.UNDERGROUND UTILITY LOCATOR Work Phone: [facility] 12-04-2024 14:25-0500 SaO2% (BldA) [Mass fraction] 98 % Feli Moomaw SUPERVISOR FRAME ASSEMBLY.UNDERGROUND UTILITY LOCATOR Work Phone: [facility] 12-04-2024 14:25-0500 Systolic blood pressure 116 mm[Hg] Feli Moomaw SUPERVISOR FRAME ASSEMBLY.UNDERGROUND UTILITY LOCATOR Work Phone: [facility] 11-22-2024 08:08-0500 Body mass index (BMI) [Ratio] 28.7 kg/m2 Ruthie Luna MD Work Phone: [facility] 11-22-2024 08:08-0500 Body temperature 98.01 [degF] Ruthie Luna MD Work Phone: [facility] 11-22-2024 08:08-0500 Body weight 80.65 kg Ruthie Luna MD Work Phone: [facility] 11-22-2024 08:08-0500 Diastolic blood pressure 75 mm[Hg] Ruthie Luna MD Work Phone: [facility] 11-22-2024 08:08-0500 Heart rate 88 /min Ruthie Luna MD Work Phone: [facility] 11-22-2024 08:08-0500 SaO2% (BldA) [Mass fraction] 96 % Ruthie Luna MD Work Phone: [facility] 11-22-2024 08:08-0500 Systolic blood pressure 118 mm[Hg] Ruthie Luna MD Work Phone: [facility] 11-18-2024 16:51-0500 Body mass index (BMI) [Ratio] 28.96 kg/m2 Tyler Salmon APRN.UNDERGROUND UTILITY LOCATOR Work Phone: [facility] 11-18-2024 16:51-0500 Body temperature 98.1 [degF] Tyler Salmon APRN.UNDERGROUND UTILITY LOCATOR Work Phone: [facility] 11-18-2024 16:51-0500 Body weight 81.4 kg Tyler Salmon APRN.UNDERGROUND UTILITY LOCATOR Work Phone: [facility] 11-18-2024 16:51-0500 Diastolic blood pressure 78 mm[Hg] Tyler Salmon APRN.UNDERGROUND UTILITY LOCATOR Work Phone: [facility] 11-18-2024 16:51-0500 Heart rate 91 /min Tyler Salmon APRN.UNDERGROUND UTILITY LOCATOR Work Phone: [facility] 11-18-2024 16:51-0500 Respiratory rate 18 /min Tyler Luis Antonio SUPERVISOR FRAME ASSEMBLY.UNDERGROUND UTILITY LOCATOR Work Phone: [facility] 11-18-2024 16:51-0500 SaO2% (BldA) [Mass fraction] 99 % Tyler Luis Antonio SUPERVISOR FRAME ASSEMBLY.UNDERGROUND UTILITY LOCATOR Work Phone: [facility] 11-18-2024 16:51-0500 Systolic blood pressure 111 mm[Hg] Tyler Luis Antonio SUPERVISOR FRAME ASSEMBLY.UNDERGROUND UTILITY LOCATOR Work Phone: [facility] 10-30-2024 10:04-0500 Body mass index (BMI) [Ratio] 28.11 kg/m2 Binta Hathaway SUPERVISOR FRAME ASSEMBLY.UNDERGROUND UTILITY LOCATOR Work Phone: [facility] 10-30-2024 10:04-0500 Body temperature 100.09 [degF] Binta Hathaway SUPERVISOR FRAME ASSEMBLY.UNDERGROUND UTILITY LOCATOR Work Phone: [facility] 10-30-2024 10:04-0500 Body weight 79 kg Binta Hathaway SUPERVISOR FRAME ASSEMBLY.UNDERGROUND UTILITY LOCATOR Work Phone: [facility] 10-30-2024 10:04-0500 Diastolic blood pressure 84 mm[Hg] Binta Hathaway SUPERVISOR FRAME ASSEMBLY.UNDERGROUND UTILITY LOCATOR Work Phone: [facility] 10-30-2024 10:04-0500 Heart rate 86 /min Binta Hathaway SUPERVISOR FRAME ASSEMBLY.UNDERGROUND UTILITY LOCATOR Work Phone: [facility] 10-30-2024 10:04-0500 Respiratory rate 20 /min Binta Hathaway SUPERVISOR FRAME ASSEMBLY.UNDERGROUND UTILITY LOCATOR Work Phone: [facility] 10-30-2024 10:04-0500 SaO2% (BldA) [Mass fraction] 97 % Binta Hathaway SUPERVISOR FRAME ASSEMBLY.UNDERGROUND UTILITY LOCATOR Work Phone: [facility] 10-30-2024 10:04-0500 Systolic blood pressure 128 mm[Hg] Binta Hathaway SUPERVISOR FRAME ASSEMBLY.UNDERGROUND UTILITY LOCATOR Work Phone: [facility] 10-25-2024 11:41-0500 Body mass index (BMI) [Ratio] 28.57 kg/m2 Binta Carcamo SUPERVISOR FRAME ASSEMBLY.CNM Work Phone: [facility] 10-25-2024 11:41-0500 Body weight 80.29 kg Binta Carcamo SUPERVISOR FRAME ASSEMBLY.CNM Work Phone: [facility] 10-25-2024 11:41-0500 Diastolic blood pressure 60 mm[Hg] Binta Cacramo SUPERVISOR FRAME ASSEMBLY.CNM Work Phone: [facility] 10-25-2024 11:41-0500 Systolic blood pressure 100 mm[Hg] Binta Carcamo SUPERVISOR FRAME ASSEMBLY.CNM Work Phone: [facility] 09-13-2024 13:43-0500 Body mass index (BMI) [Ratio] 27.57 kg/m2 Karina Kwong MD Work Phone: [facility] 09-13-2024 13:43-0500 Body weight 77.47 kg Karina Kwong MD Work Phone: [facility] 09-13-2024 13:43-0500 Diastolic blood pressure 76 mm[Hg] Karina Kwong MD Work Phone: [facility] 09-13-2024 13:43-0500 Systolic blood pressure 118 mm[Hg] Karina Kwong MD Work Phone: [facility] 08-29-2024 14:43-0500 Body mass index (BMI) [Ratio] 27.47 kg/m2 Reagan Campos SUPERVISOR FRAME ASSEMBLY.UNDERGROUND UTILITY LOCATOR Work Phone: [facility] 08-29-2024 14:43-0500 Body weight 77.2 kg Reaganlowell Campos SUPERVISOR FRAME ASSEMBLY.UNDERGROUND UTILITY LOCATOR Work Phone: [facility] 08-29-2024 14:43-0500 Diastolic blood pressure 60 mm[Hg] Reagan Haury SUPERVISOR FRAME ASSEMBLY.UNDERGROUND UTILITY LOCATOR Work Phone: [facility] 08-29-2024 14:43-0500 Systolic blood pressure 102 mm[Hg] Reagan Haury SUPERVISOR FRAME ASSEMBLY.UNDERGROUND UTILITY LOCATOR Work Phone: [facility] 07-22-2024 14:42-0400 Body mass index (BMI) [Ratio] 26.63 kg/m2 Tania Doe MD Work Phone: [facility] 07-22-2024 14:42-0400 Body weight 74.84 kg Tania Doe MD Work Phone: [facility] 07-22-2024 14:42-0400 Diastolic blood pressure 60 mm[Hg] Tania Doe MD Work Phone: [facility] 07-22-2024 14:42-0400 Systolic blood pressure 106 mm[Hg] Tania Doe MD Work Phone: [facility] 06-24-2024 14:01-0400 Body mass index (BMI) [Ratio] 26.31 kg/m2 Mihir Albright MD Work Phone: [facility] 06-24-2024 14:01-0400 Body weight 73.94 kg Mihir Albright MD Work Phone: [facility] 06-24-2024 14:01-0400 Diastolic blood pressure 60 mm[Hg] Mihir Albright MD Work Phone: [facility] 06-24-2024 14:01-0400 Systolic blood pressure 100 mm[Hg] Mihir Albright MD Work Phone: [facility] 05-16-2024 16:10-0400 Body mass index (BMI) [Ratio] 27.44 kg/m2 Berta Eldridge SUPERVISOR FRAME ASSEMBLY.CNM Work Phone: [facility] 05-16-2024 16:10-0400 Body weight 77.11 kg Berta Eldridge SUPERVISOR FRAME ASSEMBLY.CNM Work Phone: [facility] 05-16-2024 16:10-0400 Diastolic blood pressure 86 mm[Hg] Berta Eldridge SUPERVISOR FRAME ASSEMBLY.CNM Work Phone: [facility] 05-16-2024 16:10-0400 Systolic blood pressure 128 mm[Hg] Berta Eldridge SUPERVISOR FRAME ASSEMBLY.CNM Work Phone: [facility] 05-11-2024 14:25-0400 Body mass index (BMI) [Ratio] 30.18 kg/m2 Berta Eldridge SUPERVISOR FRAME ASSEMBLY.CNM Work Phone: [facility] 05-11-2024 14:25-0400 Body weight 84.82 kg Berta Eldridge SUPERVISOR FRAME ASSEMBLY.CNM Work Phone: [facility] 05-11-2024 14:25-0400 Diastolic blood pressure 88 mm[Hg] Berta Eldridge SUPERVISOR FRAME ASSEMBLY.CNM Work Phone: [facility] 05-11-2024 14:25-0400 Systolic blood pressure 130 mm[Hg] Berta Eldridge SUPERVISOR FRAME ASSEMBLY.CNM Work Phone: [facility] 05-06-2024 14:11-0400 Diastolic blood pressure 97 mm[Hg] Urban Burnett MD Work Phone: [facility] Comment on above: TruBP Average 05-06-2024 14:11-0400 Systolic blood pressure 144 mm[Hg] Urban Burnett MD Work Phone: [facility] Comment on above: TruBP Average 05-06-2024 13:58-0400 Body mass index (BMI) [Ratio] 32.6 kg/m2 Urban Burnett MD Work Phone: [facility] 05-06-2024 13:58-0400 Body weight 91.63 kg Urban Burnett MD Work Phone: [facility] 04-29-2024 16:36-0400 Body mass index (BMI) [Ratio] 32.02 kg/m2 Krislyn Aberegg PA Work Phone: [facility] 04-29-2024 16:36-0400 Body temperature 98.8 [degF] Krislyn Aberegg PA Work Phone: [facility] 04-29-2024 16:36-0400 Body weight 90 kg Krislyn Aberegg PA Work Phone: [facility] 04-29-2024 16:36-0400 Diastolic blood pressure 84 mm[Hg] Krislyn Aberegg PA Work Phone: [facility] 04-29-2024 16:36-0400 Heart rate 104 /min Krislyn Aberegg PA Work Phone: [facility] 04-29-2024 16:36-0400 Respiratory rate 16 /min Krislyn Aberegg PA Work Phone: [facility] 04-29-2024 16:36-0400 SaO2% (BldA) [Mass fraction] 97 % Krislyn Aberegg PA Work Phone: [facility] 04-29-2024 16:36-0400 Systolic blood pressure 132 mm[Hg] Krislyn Aberegg PA Work Phone: [facility] 04-29-2024 14:37-0400 Body mass index (BMI) [Ratio] 31.96 kg/m2 Reagan Campos SUPERVISOR FRAME ASSEMBLY.UNDERGROUND UTILITY LOCATOR Work Phone: [facility] 04-29-2024 14:37-0400 Body weight 89.81 kg Reagan Haaaron SUPERVISOR FRAME ASSEMBLY.UNDERGROUND UTILITY LOCATOR Work Phone: [facility] 04-29-2024 14:37-0400 Diastolic blood pressure 88 mm[Hg] Reagan Haury SUPERVISOR FRAME ASSEMBLY.UNDERGROUND UTILITY LOCATOR Work Phone: [facility] 04-29-2024 14:37-0400 Systolic blood pressure 120 mm[Hg] Reagan Campos SUPERVISOR FRAME ASSEMBLY.UNDERGROUND UTILITY LOCATOR Work Phone: [facility] 04-19-2024 15:11-0400 Diastolic blood pressure 82 mm[Hg] Binta Carcamo SUPERVISOR FRAME ASSEMBLY.CNM Work Phone: [facility] 04-19-2024 15:11-0400 Systolic blood pressure 122 mm[Hg] Binta Carcamo SUPERVISOR FRAME ASSEMBLY.CNM Work Phone: [facility] 04-19-2024 14:28-0400 Body mass index (BMI) [Ratio] 31.47 kg/m2 Binta Carcamo SUPERVISOR FRAME ASSEMBLY.CNM Work Phone: [facility] 04-19-2024 14:28-0400 Body weight 88.45 kg Binta Carcamo SUPERVISOR FRAME ASSEMBLY.CNM Work Phone: [facility] 04-12-2024 13:18-0400 Body mass index (BMI) [Ratio] 31.09 kg/m2 Mihir Albright MD Work Phone: [facility] 04-12-2024 13:18-0400 Body weight 87.36 kg Mihir Albright MD Work Phone: [facility] 04-12-2024 13:18-0400 Diastolic blood pressure 82 mm[Hg] Mihir Albright MD Work Phone: [facility] 04-12-2024 13:18-0400 Systolic blood pressure 120 mm[Hg] Mihir Albright MD Work Phone: [facility] 04-01-2024 13:35-0400 Diastolic blood pressure 75 mm[Hg] Ob Ultrasound Work Phone: [facility] 04-01-2024 13:35-0400 Systolic blood pressure 119 mm[Hg] Ob Ultrasound Work Phone: [facility] 03-31-2024 13:03-0400 Body mass index (BMI) [Ratio] 30.51 kg/m2 Berta Plotts SUPERVISOR FRAME ASSEMBLY.CNM Work Phone: [facility] 03-31-2024 13:03-0400 Body weight 85.73 kg Berta Eldridge SUPERVISOR FRAME ASSEMBLY.CNM Work Phone: [facility] 03-31-2024 13:03-0400 Diastolic blood pressure 66 mm[Hg] Berta Plotts SUPERVISOR FRAME ASSEMBLY.CNM Work Phone: [facility] 03-31-2024 13:03-0400 Systolic blood pressure 108 mm[Hg] Berta Plotts SUPERVISOR FRAME ASSEMBLY.CNM Work Phone: [facility] 03-16-2024 14:31-0400 Body mass index (BMI) [Ratio] 29.21 kg/m2 Berta Plotts SUPERVISOR FRAME ASSEMBLY.CNM Work Phone: [facility] 03-16-2024 14:31-0400 Body weight 82.1 kg Berta Plotts SUPERVISOR FRAME ASSEMBLY.CNM Work Phone: [facility] 03-16-2024 14:31-0400 Diastolic blood pressure 60 mm[Hg] Berta Plotts SUPERVISOR FRAME ASSEMBLY.CNM Work Phone: [facility] 03-16-2024 14:31-0400 Systolic blood pressure 116 mm[Hg] Berta Plotts SUPERVISOR FRAME ASSEMBLY.CNM Work Phone: [facility] 02-17-2024 15:47-0400 Body mass index (BMI) [Ratio] 28.34 kg/m2 Dex Montesinos MD Work Phone: [facility] 02-17-2024 15:47-0400 Body weight 79.65 kg Dex Montesinos MD Work Phone: [facility] 02-17-2024 15:47-0400 Diastolic blood pressure 60 mm[Hg] Dex Montesinos MD Work Phone: [facility] 02-17-2024 15:47-0400 Systolic blood pressure 102 mm[Hg] Dex Montesinos MD Work Phone: [facility] 02-02-2024 13:06-0400 Body mass index (BMI) [Ratio] 27.83 kg/m2 Mihir Albright MD Work Phone: [facility] 02-02-2024 13:06-0400 Body weight 78.2 kg Mihir Albright MD Work Phone: [facility] 02-02-2024 13:06-0400 Diastolic blood pressure 64 mm[Hg] Mihir Albright MD Work Phone: [facility] 02-02-2024 13:06-0400 Systolic blood pressure 100 mm[Hg] Mihir Albright MD Work Phone: [facility] 01-05-2024 14:34-0400 Body weight 75.75 kg Mihir Albright MD Work Phone: [facility] 01-05-2024 14:34-0400 Diastolic blood pressure 68 mm[Hg] Mihir Albright MD Work Phone: [facility] 01-05-2024 14:34-0400 Systolic blood pressure 102 mm[Hg] Mihir Albright MD Work Phone: [facility] 11-26-2023 10:55-0500 Body weight 68.13 kg Tania Doe MD Work Phone: [facility] 11-26-2023 10:55-0500 Diastolic blood pressure 78 mm[Hg] Tania Doe MD Work Phone: [facility] 11-26-2023 10:55-0500 Systolic blood pressure 120 mm[Hg] Tania Doe MD Work Phone: [facility] 11-17-2023 10:19-0500 Body weight 67.13 kg Urban Burnett MD Work Phone: [facility] 11-17-2023 10:19-0500 Diastolic blood pressure 58 mm[Hg] Urban Burnett MD Work Phone: [facility] 11-17-2023 10:19-0500 Systolic blood pressure 102 mm[Hg] Urban Burnett MD Work Phone: [facility] 07-06-2023 15:57-0400 Body height 167.6 cm Berta Plotts SUPERVISOR FRAME ASSEMBLY.CNM Work Phone: [facility] 07-06-2023 15:57-0400 Body weight 64.23 kg Berta Plotts SUPERVISOR FRAME ASSEMBLY.CNM Work Phone: [facility] 07-06-2023 15:57-0400 Diastolic blood pressure 62 mm[Hg] Berta Plotts SUPERVISOR FRAME ASSEMBLY.CNM Work Phone: [facility] 07-06-2023 15:57-0400 Systolic blood pressure 108 mm[Hg] Berta Plotts SUPERVISOR FRAME ASSEMBLY.CNM Work Phone: [facility] 03-12-2023 20:43-0400 Heart rate 105 /min [facility] 03-12-2023 20:43-0400 Respiratory rate 15 /min [facility] 03-12-2023 20:43-0400 SaO2% (BldA) [Mass fraction] 100 % [facility] [facility] 03-12-2023 16:37-0400 Body height 170.18 cm [facility] 03-12-2023 16:37-0400 Body mass index (BMI) [Ratio] 22.5 kg/m2 [facility] 03-12-2023 16:37-0400 Body temperature 97.1 [degF] [facility] 03-12-2023 16:37-0400 Body weight 65.18 kg [facility] 03-12-2023 16:37-0400 Diastolic blood pressure 99 mm[Hg] [facility] 03-12-2023 16:37-0400 Systolic blood pressure 130 mm[Hg] [facility] 01-16-2023 06:23-0400 Diastolic blood pressure 68 mm[Hg] [facility] 01-16-2023 06:23-0400 Heart rate 72 /min [facility] 01-16-2023 06:23-0400 Respiratory rate 18 /min [facility] 01-16-2023 06:23-0400 SaO2% (BldA) [Mass fraction] 98 % [facility] 01-16-2023 06:23-0400 Systolic blood pressure 135 mm[Hg] [facility] 01-16-2023 05:14-0400 Body height 170.18 cm [facility] 01-16-2023 05:14-0400 Body mass index (BMI) [Ratio] 25.8 kg/m2 [facility] 01-16-2023 05:14-0400 Body temperature 97.3 [degF] [facility] 01-16-2023 05:14-0400 Body weight 74.9 kg [facility] 12-26-2022 14:53-0400 Body weight 77.2 kg Amarilis Berry APRN.CNP Work Phone: [facility] 12-26-2022 14:53-0400 Diastolic blood pressure 80 mm[Hg] Amarilis Kristi SUPERVISOR FRAME ASSEMBLY.UNDERGROUND UTILITY LOCATOR Work Phone: [facility] 12-26-2022 14:53-0400 Systolic blood pressure 110 mm[Hg] Amarilis Kristi SUPERVISOR FRAME ASSEMBLY.UNDERGROUND UTILITY LOCATOR Work Phone: [facility] 12-14-2022 14:51-0500 Body mass index (BMI) [Ratio] 26.7 kg/m2 [facility] 12-14-2022 14:51-0500 Body temperature 98.9 [degF] [facility] 12-14-2022 14:51-0500 Body weight 77.5 kg [facility] 12-14-2022 14:51-0500 Diastolic blood pressure 111 mm[Hg] [facility] 12-14-2022 14:51-0500 Heart rate 105 /min [facility] 12-14-2022 14:51-0500 Respiratory rate 18 /min [facility] 12-14-2022 14:51-0500 SaO2% (BldA) [Mass fraction] 98 % [facility] 12-14-2022 14:51-0500 Systolic blood pressure 126 mm[Hg] [facility] 11-10-2022 10:19-0500 Body height 167.6 cm Elsa Bro MD Work Phone: [facility] 11-10-2022 10:19-0500 Body temperature 97.2 [degF] Elsa Bro MD Work Phone: [facility] 11-10-2022 10:19-0500 Body weight 82.56 kg Elsa Bro MD Work Phone: [facility] 11-10-2022 10:19-0500 Diastolic blood pressure 70 mm[Hg] Elsa Bro MD Work Phone: [facility] 11-10-2022 10:19-0500 Heart rate 94 /min Elsa Bro MD Work Phone: [facility] 11-10-2022 10:19-0500 Respiratory rate 14 /min Elsa Bro MD Work Phone: [facility] 11-10-2022 10:19-0500 SaO2% (BldA) [Mass fraction] 98 % Elsa Bro MD Work Phone: [facility] 11-10-2022 10:19-0500 Systolic blood pressure 122 mm[Hg] Elsa Bro MD Work Phone: [facility] 11-09-2022 13:09-0500 Body temperature 97.9 [degF] Krislyn Aberegg PA Work Phone: [facility] 11-09-2022 13:09-0500 Body weight 83.46 kg Krislyn Aberegg PA Work Phone: [facility] 11-09-2022 13:09-0500 Diastolic blood pressure 88 mm[Hg] Krislyn Aberegg PA Work Phone: [facility] 11-09-2022 13:09-0500 Heart rate 98 /min Krislyn Aberegg PA Work Phone: [facility] 11-09-2022 13:09-0500 Respiratory rate 16 /min Krislyn Aberegg PA Work Phone: [facility] 11-09-2022 13:09-0500 SaO2% (BldA) [Mass fraction] 98 % Krislyn Aberegg PA Work Phone: [facility] 11-09-2022 13:09-0500 Systolic blood pressure 134 mm[Hg] Krislyn Aberegg PA Work Phone: [facility] 11-06-2022 18:01-0500 Body temperature 97.7 [degF] LEILA TOMLINSON MD [facility] 11-06-2022 18:01-0500 Diastolic Blood Pressure Non-Invasive 75 1 LEILA TOMLINSON MD [facility] 11-06-2022 18:01-0500 Heart rate 102 /min LEILA TOMLINOSN MD [facility] 11-06-2022 18:01-0500 Respiratory rate 22 /min LEILA TOMLINSON MD [facility] 11-06-2022 18:01-0500 Systolic Blood Pressure Non-Invasive 124 1 LEILA TOMLINSON MD [facility] 08-29-2022 09:06-0500 Body weight 87.82 kg Amarilis Narrows SUPERVISOR FRAME ASSEMBLY.UNDERGROUND UTILITY LOCATOR Work Phone: [facility] 08-29-2022 09:06-0500 Diastolic blood pressure 80 mm[Hg] Amarilis Kristi SUPERVISOR FRAME ASSEMBLY.UNDERGROUND UTILITY LOCATOR Work Phone: [facility] 08-29-2022 09:06-0500 Systolic blood pressure 124 mm[Hg] Amarilis Narrows SUPERVISOR FRAME ASSEMBLY.UNDERGROUND UTILITY LOCATOR Work Phone: [facility] 07-01-2022 10:41-0400 Body height 167.6 cm Berta Plotts SUPERVISOR FRAME ASSEMBLY.CNM Work Phone: [facility] 07-01-2022 10:41-0400 Body weight 84.82 kg Berta Plotts SUPERVISOR FRAME ASSEMBLY.CNM Work Phone: [facility] 07-01-2022 10:41-0400 Diastolic blood pressure 70 mm[Hg] Berta Plotts SUPERVISOR FRAME ASSEMBLY.CNM Work Phone: [facility] 07-01-2022 10:41-0400 Systolic blood pressure 110 mm[Hg] Berta Plotts SUPERVISOR FRAME ASSEMBLY.CNM Work Phone: [facility] 06-23-2022 14:41-0400 Body temperature 97.11 [degF] Tyler Salmon SUPERVISOR FRAME ASSEMBLY.UNDERGROUND UTILITY LOCATOR Work Phone: [facility] 06-23-2022 14:41-0400 Body weight 83.46 kg Tyler Salmon SUPERVISOR FRAME ASSEMBLY.UNDERGROUND UTILITY LOCATOR Work Phone: [facility] 06-23-2022 14:41-0400 Diastolic blood pressure 82 mm[Hg] Tyler Salmon SUPERVISOR FRAME ASSEMBLY.UNDERGROUND UTILITY LOCATOR Work Phone: [facility] 06-23-2022 14:41-0400 Heart rate 107 /min Tyler Salmon SUPERVISOR FRAME ASSEMBLY.UNDERGROUND UTILITY LOCATOR Work Phone: [facility] 06-23-2022 14:41-0400 Respiratory rate 18 /min Tyler Salmon SUPERVISOR FRAME ASSEMBLY.UNDERGROUND UTILITY LOCATOR Work Phone: [facility] 06-23-2022 14:41-0400 SaO2% (BldA) [Mass fraction] 98 % Tyler Salmon SUPERVISOR FRAME ASSEMBLY.UNDERGROUND UTILITY LOCATOR Work Phone: [facility] 06-23-2022 14:41-0400 Systolic blood pressure 118 mm[Hg] Tyler Salmon SUPERVISOR FRAME ASSEMBLY.UNDERGROUND UTILITY LOCATOR Work Phone: [facility] 06-14-2022 20:36-0400 Body height 170.18 cm [facility] Work Phone: 06-14-2022 20:36-0400 Body mass index (BMI) [Ratio] 29 kg/m2 [facility] Work Phone: 06-14-2022 20:36-0400 Body temperature 96.6 [degF] [facility] Work Phone: 06-14-2022 20:36-0400 Body weight 83.91 kg [facility] Work Phone: 06-14-2022 20:36-0400 Diastolic blood pressure 93 mm[Hg] [facility] Work Phone: 06-14-2022 20:36-0400 Heart rate 90 /min [facility] Work Phone: 06-14-2022 20:36-0400 Respiratory rate 18 /min [facility] Work Phone: 06-14-2022 20:36-0400 SaO2% (BldA) [Mass fraction] 98 % [facility] Work Phone: 06-14-2022 20:36-0400 Systolic blood pressure 129 mm[Hg] [facility] Work Phone: 05-08-2022 15:14-0400 Body temperature 97.59 [degF] Linda Praisler-Wood SUPERVISOR FRAME ASSEMBLY.UNDERGROUND UTILITY LOCATOR Work Phone: [facility] 05-08-2022 15:14-0400 Body weight 83.55 kg Linda Praisler-Wood SUPERVISOR FRAME ASSEMBLY.[facility] Work Phone: [facility] 05-08-2022 15:14-0400 Diastolic blood pressure 64 mm[Hg] Linda Praisler-Wood SUPERVISOR FRAME ASSEMBLY.[facility] Work Phone: [facility] 05-08-2022 15:14-0400 Heart rate 97 /min Linda Praisler-Wood SUPERVISOR FRAME ASSEMBLY.[facility] Work Phone: [facility] 05-08-2022 15:14-0400 Respiratory rate 16 /min Linda Praisler-Wood SUPERVISOR FRAME ASSEMBLY.UNDERGROUND UTILITY LOCATOR Work Phone: [facility] 05-08-2022 15:14-0400 SaO2% (BldA) [Mass fraction] 99 % Linda Praisler-Wood SUPERVISOR FRAME ASSEMBLY.[facility] Work Phone: [facility] 05-08-2022 15:14-0400 Systolic blood pressure 110 mm[Hg] Linda Praisler-Wood SUPERVISOR FRAME ASSEMBLY.[facility] Work Phone: [facility] 05-08-2022 00:51-0400 Body height 162.56 cm [facility] Work Phone: 05-08-2022 00:51-0400 Body mass index (BMI) [Ratio] 30.9 kg/m2 [facility] Work Phone: 05-08-2022 00:51-0400 Body temperature 97.6 [degF] [facility] Work Phone: 05-08-2022 00:51-0400 Body weight 81.64 kg [facility] Work Phone: 05-08-2022 00:51-0400 Diastolic blood pressure 73 mm[Hg] [facility] Work Phone: 05-08-2022 00:51-0400 Heart rate 85 /min [facility] Work Phone: 05-08-2022 00:51-0400 Respiratory rate 16 /min [facility] Work Phone: 05-08-2022 00:51-0400 SaO2% (BldA) [Mass fraction] 98 % [facility] Work Phone: 05-08-2022 00:51-0400 Systolic blood pressure 123 mm[Hg] [facility] Work Phone: 03-31-2022 12:24-0400 Heart rate 84 /min Ibis Bogner PA-C Work Phone: [facility] 03-31-2022 12:17-0400 Body temperature 98.1 [degF] Ibis Bogner PA-C Work Phone: [facility] 03-31-2022 12:17-0400 Body weight 82.56 kg Ibis Bogner PA-C Work Phone: [facility] 03-31-2022 12:17-0400 Diastolic blood pressure 72 mm[Hg] Ibis Bogner PA-C Work Phone: [facility] 03-31-2022 12:17-0400 Respiratory rate 16 /min Ibis Bogner PA-C Work Phone: [facility] 03-31-2022 12:17-0400 SaO2% (BldA) [Mass fraction] 99 % Ibis Bogner PA-C Work Phone: [facility] 03-31-2022 12:17-0400 Systolic blood pressure 132 mm[Hg] Ibis Bogner PA-C Work Phone: [facility] 02-06-2022 12:34-0400 Body temperature 97.9 [degF] Binta Hathaway APRN.CNP Work Phone: [facility] 02-06-2022 12:34-0400 Body weight 81.01 kg Binta Hathaway SUPERVISOR FRAME ASSEMBLY.UNDERGROUND UTILITY LOCATOR Work Phone: [facility] 02-06-2022 12:34-0400 Diastolic blood pressure 68 mm[Hg] Binta Hathaway SUPERVISOR FRAME ASSEMBLY.UNDERGROUND UTILITY LOCATOR Work Phone: [facility] 02-06-2022 12:34-0400 Heart rate 70 /min Binta Hathaway SUPERVISOR FRAME ASSEMBLY.UNDERGROUND UTILITY LOCATOR Work Phone: [facility] 02-06-2022 12:34-0400 Respiratory rate 18 /min Binta Hathaway SUPERVISOR FRAME ASSEMBLY.UNDERGROUND UTILITY LOCATOR Work Phone: [facility] 02-06-2022 12:34-0400 SaO2% (BldA) [Mass fraction] 99 % Binta Hathaway SUPERVISOR FRAME ASSEMBLY.UNDERGROUND UTILITY LOCATOR Work Phone: [facility] 02-06-2022 12:34-0400 Systolic blood pressure 122 mm[Hg] Bitna Hathaway SUPERVISOR FRAME ASSEMBLY.UNDERGROUND UTILITY LOCATOR Work Phone: [facility] 01-13-2022 14:28-0400 Body temperature 98.8 [degF] Lg Rene MD Work Phone: [facility] 01-13-2022 14:28-0400 Body weight 81.19 kg Lg Rene MD Work Phone: [facility] 01-13-2022 14:28-0400 Diastolic blood pressure 60 mm[Hg] Lg Rene MD Work Phone: [facility] 01-13-2022 14:28-0400 Heart rate 110 /min Lg Rene MD Work Phone: [facility] 01-13-2022 14:28-0400 Respiratory rate 16 /min Lg Rene MD Work Phone: [facility] 01-13-2022 14:28-0400 SaO2% (BldA) [Mass fraction] 97 % Lg Rene MD Work Phone: [facility] 01-13-2022 14:040 Systolic blood pressure 122 mm[Hg] Lg Rene MD Work Phone: [facility] Encounters Encounter Date Encounter Type Care Provider Facility Start: 08-22-2025 End: 08-22-2025 Emergency department patient visit Sudhir Marcus Facility:[facility] Start: 08-18-2025 End: 08-18-2025 Emergency department patient visit Ridge Perez Facility:[facility] Start: 08-18-2025 End: 08-18-2025 [facility] Facility:[facility] Start: 07-25-2025 End: 07-25-2025 [facility] Facility:[facility] Start: 07-14-2025 End: 07-14-2025 [facility] Facility:[facility] Start: 05-29-2025 End: 06-02-2025 Refill Ruthie Luna MD Work Phone: Endocrinology Comment on above: Refill Request Start: 05-08-2025 End: 05-08-2025 ambulatory KELLI OLDER Facility:[facility] Start: 05-08-2025 End: 05-08-2025 Periodic preventive med est patient 18-39 yrs Kelli Montana SUPERVISOR FRAME ASSEMBLY.UNDERGROUND UTILITY LOCATOR Work Phone: [facility] [place] Comment on above: Annual physical exam (Primary Dx); Hypothyroidism, unspecified type; Heat intolerance; Diarrhea, unspecified type; Nausea; Other fatigue Start: 05-08-2025 End: 05-08-2025 [facility] Facility:[facility] Start: 05-08-2025 End: 05-08-2025 Patient encounter procedure Kelli Boyle SUPERVISOR FRAME ASSEMBLY.UNDERGROUND UTILITY LOCATOR Work Phone: [facility] Work Phone: Start: 04-24-2025 End: 04-24-2025 Patient encounter procedure Binta Rafa SUPERVISOR FRAME ASSEMBLY.UNDERGROUND UTILITY LOCATOR Work Phone: [facility] [place] Comment on above: Nausea and vomiting, unspecified vomiting type (Primary Dx); Encounter to obtain excuse from work Start: 04-24-2025 End: 04-24-2025 [facility] Facility:[facility] Start: 04-15-2025 End: 04-15-2025 Emergency department patient visit Dr. Tremayne Quiñonez MD Work Phone: -Emergency Department Work Phone: Start: 03-22-2025 End: 03-22-2025 Patient encounter procedure Karina Kwong MD Work Phone: OB/Gynecology Comment on above: Nexplanon removal (P rimary Dx) Start: 03-22-2025 End: 03-22-2025 [facility] Facility:[facility] Start: 03-10-2025 End: 03-10-2025 Patient encounter procedure Ruthie Luna MD Work Phone: Endocrinology Comment on above: Acquired hypothyroid ism (Primary Dx) Start: 03-10-2025 End: 03-10-2025 [facility] CAMILA EVANSVILLELACY Facility:[facility] Start: 03-10-2025 End: 03-10-2025 Telephone encounter Karina Kwong MD Work Phone: OB/Gynecology Comment on above: Orders Start: 02-22-2025 End: 02-22-2025 Patient encounter procedure Binta Carcamo APRN.CNM Work Phone: OB/Gynecology Comment on above: Hypothyroidism, unsp ecified type; Vulvar pruritus; Presence of subdermal contraceptive implant Start: 02-22-2025 End: 02-22-2025 [facility] Facility:[facility] Start: 02-16-2025 End: 02-17-2025 Refill Ruthie Luna MD Work Phone: Endocrinology Comment on above: Refill Request Start: 02-02-2025 End: 02-06-2025 Follow-up encounter Ruthie Luna MD Work Phone: Endocrinology Start: 01-12-2025 End: 01-12-2025 Follow-up encounter Reagan Campos APRN.UNDERGROUND UTILITY LOCATOR Work Phone: OB/Gynecology Start: 01-12-2025 End: 01-12-2025 [facility] Facility:[facility] Start: 01-12-2025 End: 01-12-2025 Patient encounter procedure Reagan Campos APRN.UNDERGROUND UTILITY LOCATOR Work Phone: OB/Gynecology Comment on above: Vaginal discharge (P rimary Dx); Vaginal itching; Recurrent genital herpes Start: 12-30-2024 End: 12-30-2024 [facility] Facility:[facility] Start: 12-04-2024 End: 12-04-2024 [facility] Facility:[facility] Start: 12-04-2024 End: 12-04-2024 Patient encounter procedure Feli Winston APRN.UNDERGROUND UTILITY LOCATOR Work Phone: [facility] Comment on above: Vaginal yeast infect ion (Primary Dx); Viral illness Start: 11-22-2024 End: 11-22-2024 [facility] Facility:[facility] Start: 11-22-2024 End: 11-22-2024 Patient encounter procedure Ruthie Luna MD Work Phone: Endocrinology Comment on above: Acquired hypothyroid ism (Primary Dx); Elevated TSH Start: 11-18-2024 End: 11-18-2024 [facility] Facility:[facility] Start: 11-18-2024 End: 11-18-2024 Patient encounter procedure Tyler Salmon APRN.UNDERGROUND UTILITY LOCATOR Work Phone: [facility] Comment on above: Diarrhea, unspecifie d type (Primary Dx); Dysfunction of left eustachian tube Start: 10-31-2024 End: 10-31-2024 [facility] Facility:[facility] Start: 10-30-2024 End: 10-30-2024 [facility] Facility:[facility] Start: 10-30-2024 End: 10-30-2024 Patient encounter procedure Binta Hathaway APRN.UNDERGROUND UTILITY LOCATOR Work Phone: [facility] Comment on above: Acute otitis media, left (Primary Dx); COVID-19 Start: 10-26-2024 End: 10-27-2024 Telephone encounter Binta Carcamo APRN.CNM Work Phone: OB/Gynecology Comment on above: Results Start: 10-25-2024 End: 10-25-2024 [facility] Facility:[facility] Start: 10-25-2024 End: 10-25-2024 Patient encounter procedure Binta Carcamo APRN.CNM Work Phone: OB/Gynecology Comment on above: Breakthrough bleedin g on Nexplanon (Primary Dx) Start: 10-07-2024 End: 10-07-2024 Refill Karina Kwong MD Work Phone: OB/Gynecology Comment on above: Refill Request Start: 09-27-2024 End: 09-27-2024 Telephone encounter Urban Burnett MD Work Phone: OB/Gynecology Comment on above: Results Start: 09-13-2024 End: 09-13-2024 [facility] Start: 09-13-2024 End: 09-13-2024 Office outpatient visit 15 minutes Karina Kwong MD Work Phone: OB/Gynecology Comment on above: Vaginal discharge (P rimary Dx) Start: 09-07-2024 End: 09-07-2024 Telephone encounter Reagan Campos APRN.UNDERGROUND UTILITY LOCATOR Work Phone: OB/Gynecology Comment on above: HSV Start: 09-02-2024 End: 09-02-2024 Telephone encounter Reagan Campos APRN.UNDERGROUND UTILITY LOCATOR Work Phone: OB/Gynecology Comment on above: Patient Question Start: 08-30-2024 End: 09-01-2024 Telephone encounter Urban Burnett MD Work Phone: OB/Gynecology Comment on above: Results Start: 08-29-2024 End: 08-29-2024 [facility] Start: 08-29-2024 End: 08-29-2024 Patient encounter procedure Reagan Campos APRN.UNDERGROUND UTILITY LOCATOR Work Phone: OB/Gynecology Comment on above: Screen for STD (sexu ally transmitted disease) (Primary Dx); Vaginal discharge; Vaginal itching Start: 07-22-2024 End: 07-22-2024 Patient encounter procedure Tania Doe MD Work Phone: OB/Gynecology Comment on above: Urinary frequency (P rimary Dx); Vaginal discharge; Pelvic pressure in female Start: 06-24-2024 End: 06-24-2024 Patient encounter procedure Mihir Albright MD Work Phone: OB/Gynecology Comment on above: care and examination (Primary Dx); Encounter for screening for malignant neoplasm of cervix; Pre-eclampsia in third trimester Start: 06-14-2024 End: 06-14-2024 Telephone encounter Binta Carcamo APRN.CNM Work Phone: OB/Gynecology Comment on above: Refill Request Start: 06-06-2024 End: 06-06-2024 Refill Berta Eldridge APRN.CNM Work Phone: OB/Gynecology Comment on above: Refill Request Start: 05-16-2024 End: 05-16-2024 Patient encounter procedure Berta Eldridge APRN.CNM Work Phone: OB/Gynecology Comment on above: Care and examination of lactating mother (Primary Dx); Elevated blood pressure reading; BP check; 2 weeks follow-up Start: 05-16-2024 End: 05-16-2024 Patient encounter status Berta Eldridge APRN.CNM Work Phone: [facility] Start: 05-13-2024 Telephone encounter Berta yeh APRN.CNM Work Phone: OB/Gynecology Comment on above: Elevated BP Start: 05-11-2024 End: 05-11-2024 Patient encounter procedure Berta Eldridge APRN.CNM Work Phone: OB/Gynecology Comment on above: Pre-eclampsia in thi rd trimester (Primary Dx); Care and examination of lactating mother; Elevated blood pressure reading; BP check Start: 05-11-2024 End: 06-24-2024 Patient encounter status Berta Eldridge APRN.CNM Work Phone: [facility] Start: 05-11-2024 Telephone encounter Urban Burnett MD Work Phone: OB/Gynecology Start: 05-09-2024 ambulatory Urban sherman MD Work Phone: OB/Gynecology Comment on above: Ob Delivery Note Start: 05-06-2024 End: 05-06-2024 Patient encounter procedure Urban Burnett MD Work Phone: OB/Gynecology Comment on above: 37 weeks gestation o f (Primary Dx); Encounter for supervision of high risk in third trimester, antepartum Start: 04-29-2024 End: 04-29-2024 Patient encounter procedure Valentine LOVE Work Phone: [facility] Comment on above: Eustachian tube dysf unction, bilateral (Primary Dx) Start: 04-29-2024 End: 04-29-2024 Patient encounter procedure Back [employer] [facility] Work Phone: OB/Gynecology Comment on above: Encounter for ultras ound to check growth (Primary Dx); Macrosomia of fetus affecting management of mother in third trimester, single or unspecified fetus; Tobacco smoking complicating in third trimester; Supervision of high risk in third trimester; Anemia during in third trimester; 36 weeks gestation of Encounter for superv ision of high risk in third trimester, antepartum (Primary Dx); 36 weeks gestation of ; Anemia during in third trimester; Excessive growth affecting management of in third trimester, single or unspecified fetus; Tobacco smoking complicating in third trimester; Decreased movements in third trimester, single or unspecified fetus Start: 04-19-2024 End: 04-19-2024 Patient encounter procedure Binta Carcamo APRN.CNM Work Phone: OB/Gynecology Comment on above: Supervision of high risk in third trimester (Primary Dx); 34 weeks gestation of ; Anemia during in third trimester; Elevated BP without diagnosis of hypertension Start: 04-12-2024 End: 04-12-2024 Patient encounter procedure Mihir Albright MD Work Phone: OB/Gynecology Comment on above: 33 weeks gestation o f (Primary Dx); Supervision of high risk in third trimester Start: 04-11-2024 Telephone encounter Tania Doe MD Work Phone: OB/Gynecology Comment on above: Question (OB Questio n) Start: 04-07-2024 Telephone encounter Mihir allred MD Work Phone: OB/Gynecology Comment on above: Care Start: 04-04-2024 Telephone encounter Berta yeh APRN.CNM Work Phone: OB/Gynecology Comment on above: Results; Follow Up Start: 04-01-2024 End: 04-01-2024 Patient encounter procedure [employer] [facility] Work Phone: OB/Gynecology Comment on above: Suspected problem wi th growth not found (Primary Dx); Supervision of high risk in third trimester; 31 weeks gestation of Start: 03-31-2024 End: 03-31-2024 Patient encounter procedure Berta Eldridge APRN.CNM Work Phone: OB/Gynecology Comment on above: Supervision of high risk in third trimester (Primary Dx); 31 weeks gestation of ; Tobacco smoking complicating in first trimester; Gastroesophageal reflux disease without esophagitis; Anemia during in third trimester Start: 03-17-2024 Telephone encounter Manager Paper RN [facility]aternal [facility] Comment on above: Results Start: 03-16-2024 End: 03-16-2024 Patient encounter procedure Berta Eldridge APRN.CNYuki Work Phone: OB/Gynecology Comment on above: 29 weeks gestation o f (Primary Dx); Need for vaccination; Supervision of high risk in second trimester; Gastroesophageal reflux disease without esophagitis Start: 03-01-2024 Refill Binta Carcamo APRN.CNYuki Work Phone: OB/Gynecology Comment on above: Refill Request Start: 02-19-2024 Telephone encounter Dex Montesinos MD Work Phone: OB/Gynecology Comment on above: Letter Start: 02-17-2024 End: 02-17-2024 Patient encounter procedure Dex Montesinos MD Work Phone: OB/Gynecology Comment on above: Supervision of high risk in second trimester (Primary Dx); 25 weeks gestation of ; Screening for STD (sexually transmitted disease) Start: 02-03-2024 Telephone encounter Manager Paper RN Maternal Medicine Comment on above: Manager Paper - O ther ([facility]) Start: 02-02-2024 End: 02-02-2024 Patient encounter procedure Mihir Albright MD Work Phone: OB/Gynecology Comment on above: 23 weeks gestation o f (Primary Dx); Supervision of high risk in second trimester; Vaginal itching Start: 01-27-2024 Telephone encounter Karina chambers MD Work Phone: OB/Gynecology Comment on above: Results Start: 01-19-2024 Telephone encounter Mihir allred MD Work Phone: OB/Gynecology Start: 01-13-2024 Telephone encounter Berta yeh SUPERVISOR FRAME ASSEMBLY.CNM Work Phone: OB/Gynecology Start: 01-05-2024 End: 01-05-2024 Patient encounter procedure Luis Enrique Martinez MD Work Phone: Maternal Medicine Comment on above: Encounter for anatomic survey (Primary Dx); 12 weeks gestation of ; Encounter for supervision of normal first in first trimester; 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) 19 weeks gestation o f (Primary Dx); Supervision of high risk in second trimester Start: 12-25-2023 Telephone encounter Mihir allred MD Work Phone: OB/Gynecology Comment on above: Appointment Start: 12-16-2023 Telephone encounter Tania Doe MD Work Phone: OB/Gynecology Comment on above: OB Vaginal Infection Start: 12-03-2023 ambulatory Telma Fraser RN NURS E IRRIGATION TAX ASSESSOR COLLECTOR Comment on above: Patient Update Start: 12-01-2023 Telephone encounter Binta navarro SUPERVISOR FRAME ASSEMBLY.CNM Work Phone: OB/Gynecology Comment on above: Medication Question Start: 11-26-2023 End: 11-26-2023 Patient encounter procedure Tania Doe MD Work Phone: OB/Gynecology Comment on above: Supervision of high risk in second trimester (Primary Dx); Tobacco smoking complicating in first trimester; 13 weeks gestation of Start: 11-25-2023 Telephone encounter Tania Doe MD Work Phone: OB/Gynecology Comment on above: BV + Pelvic Pain Start: 11-18-2023 Telephone encounter Urban Burnett MD Work Phone: OB/Gynecology Comment on above: Medication Problem Start: 11-17-2023 End: 11-17-2023 Patient encounter procedure Urban Burnett MD Work Phone: OB/Gynecology Comment on above: 12 weeks gestation o f (Primary Dx); Encounter for supervision of normal first in first trimester Start: 07-06-2023 End: 07-06-2023 Patient encounter procedure Berta Eldridge APRN.NOE Work Phone: OB/Gynecology Comment on above: Encounter for gyneco logical examination (general) (routine) without abnormal findings (Primary Dx); Recurrent cold sores; Screening for STDs (sexually transmitted diseases) Start: 07-06-2023 End: 07-06-2023 Patient encounter status Berta Eldridge SUPERVISOR FRAME ASSEMBLY.CNYuki Work Phone: [facility] Start: 03-12-2023 End: 03-12-2023 Emergency department patient visit [facility] Start: 01-16-2023 End: 01-16-2023 Emergency department patient visit [facility] Start: 12-29-2022 Telephone encounter Amarilis arevalo SUPERVISOR FRAME ASSEMBLY.UNDERGROUND UTILITY LOCATOR Work Phone: OB/Gynecology Comment on above: Results Start: 12-27-2022 ambulatory Amarilis Berry SUPERVISOR FRAME ASSEMBLY.UNDERGROUND UTILITY LOCATOR Work Phone: OB/Gynecology Comment on above: Question regarding C ANDIDA / TRICHOMONAS AMPLIFICATION Start: 12-26-2022 End: 12-26-2022 Patient encounter procedure Amarilis Berry SUPERVISOR FRAME ASSEMBLY.UNDERGROUND UTILITY LOCATOR Work Phone: OB/Gynecology Comment on above: Dysuria (Primary Dx) ; Screen for STD (sexually transmitted disease) Start: 12-14-2022 End: 12-14-2022 Emergency department patient visit [facility] Start: 11-10-2022 End: 11-10-2022 Patient encounter procedure Elsa Bro MD Work Phone: Internal Medicine [place] Comment on above: Swelling of both morgan ds (Primary Dx) Start: 11-09-2022 End: 11-09-2022 Patient encounter procedure Valentine LOVE Work Phone: [facility] Comment on above: Scabies (Primary Dx) ; Swelling of both hands Start: 11-06-2022 End: 11-06-2022 Emergency department patient visit LEILA TOMLINSON MD Facility:[facility] Start: 11-06-2022 End: 11-06-2022 Emergency department patient visit LEILA TOMLINSON MD [facility] Start: 08-29-2022 End: 08-29-2022 Patient encounter procedure Amarilis Berry SUPERVISOR FRAME ASSEMBLY.UNDERGROUND UTILITY LOCATOR Work Phone: OB/Gynecology Comment on above: Encounter for Nexpla non removal (Primary Dx) Start: 07-31-2022 Refill Binta Carcamo APRN.CNM Work Phone: OB/Gynecology Comment on above: Refill Request Start: 07-02-2022 Telephone encounter Binta navarro SUPERVISOR FRAME ASSEMBLY.CNM Work Phone: OB/Gynecology Comment on above: Results Start: 07-01-2022 End: 07-01-2022 Patient encounter procedure Berta Eldridge SUPERVISOR FRAME ASSEMBLY.CNM Work Phone: OB/Gynecology Comment on above: Encounter for gyneco logical examination (general) (routine) without abnormal findings (Primary Dx); Screening for cervical cancer; Encounter for screening for human papillomavirus (HPV); Screen for STD (sexually transmitted disease); Nexplanon removal; Insertion of Nexplanon Start: 07-01-2022 End: 07-01-2022 Patient encounter status Berta Eldridge SUPERVISOR FRAME ASSEMBLY.CNM Work Phone: OB/Gynecology Start: 06-26-2022 Telephone encounter Alexandra velasco SUPERVISOR FRAME ASSEMBLY.UNDERGROUND UTILITY LOCATOR Work Phone: OB/Gynecology Comment on above: Appointment (Provide r wants patient to have Annual Exam first. Appointment was changed to Annual. Called patient to inform her the appointment was changed. No answer or voicemail.) Start: 06-23-2022 End: 06-23-2022 Patient encounter procedure Tyler Luis Antonio SUPERVISOR FRAME ASSEMBLY.UNDERGROUND UTILITY LOCATOR Work Phone: [facility] Comment on above: Sore throat (Primary Dx); Toothache; Feared condition not demonstrated Start: 06-14-2022 End: 06-14-2022 [facility] Start: 05-08-2022 End: 05-08-2022 Patient encounter procedure Linda Felton SUPERVISOR FRAME ASSEMBLY.UNDERGROUND UTILITY LOCATOR Work Phone: [facility] Comment on above: Throat pain in adult (Primary Dx); Swollen tonsil Start: 05-08-2022 End: 05-08-2022 [facility] Start: 03-31-2022 End: 03-31-2022 Office outpatient visit 15 minutes Ibis Dunne PA-C Work Phone: [facility] Comment on above: Sore throat (Primary Dx) Start: 02-06-2022 End: 02-06-2022 Patient encounter procedure Binta Hathaway SUPERVISOR FRAME ASSEMBLY.UNDERGROUND UTILITY LOCATOR Work Phone: [facility] Comment on above: Dermatitis (Primary Dx); Aphthous ulcer of mouth Start: 01-13-2022 End: 01-13-2022 Patient encounter procedure Lg Rene MD Work Phone: [facility] Comment on above: Rash (Primary Dx) Start: 07-28-2021 Patient encounter procedure Alexander Andrew MD Work Phone: [facility] Start: 07-28-2021 Progress Note Alexander rose MD Work Phone: [facility] Start: 03-30-2019 End: 03-30-2019 Emergency department patient visit FANNY ISRAEL [facility] Procedures Date Procedure Procedure Detail Performing Clinician Start: 07-22-2024 Urnls dip stick/tabl et rgnt auto w/o microscopy Tania Doe MD Work Phone: Start: 05-06-2024 URINE OB DIP B/O Michelle Burnett MD Work Phone: Start: 04-29-2024 Us preg uterus after 1st trimest 10/12 gestation Berta Eldridge SUPERVISOR FRAME ASSEMBLY.CNM Work Phone: Start: 04-29-2024 URINE OB DIP B/O Reagan Campos SUPERVISOR FRAME ASSEMBLY.UNDERGROUND UTILITY LOCATOR Work Phone: Start: 04-19-2024 URINE OB DIP B/O Rossana Carcamo SUPERVISOR FRAME ASSEMBLY.CNM Work Phone: Start: 04-01-2024 Us preg uterus after 1st trimest 10/12 gestation Berta Eldridge SUPERVISOR FRAME ASSEMBLY.CNM Work Phone: Start: 02-17-2024 BACTERIAL VAGINOSIS NAAT Dex Montesinos MD Work Phone: Start: 02-17-2024 Iadna chlamydia trachomatis amplified probe tq Dex Montesinos MD Work Phone: Start: 02-02-2024 Smr prim src gram/gi emsa stain bct fungi/cell Mihir Albright MD Work Phone: Start: 01-05-2024 Us preg uterus after 1st trimest 10/12 gestation Urban Burnett MD Work Phone: Start: 11-26-2023 URINE OB DIP B/O Tania Doe MD Work Phone: Start: 11-17-2023 URINE OB DIP B/O Michelle Burnett MD Work Phone: Start: 07-06-2023 BACTERIAL VAGINOSIS NAAT Berta Eldridge SUPERVISOR FRAME ASSEMBLY.CNM Work Phone: Start: 07-06-2023 Iadna chlamydia trachomatis amplified probe tq Berta Eldridge SUPERVISOR FRAME ASSEMBLY.CNM Work Phone: Start: 12-26-2022 Urnls dip stick/tabl et rgnt auto w/o microscopy Amarilis Mejiacalf SUPERVISOR FRAME ASSEMBLY.UNDERGROUND UTILITY LOCATOR Work Phone: Start: 06-23-2022 STREP A MOLECULAR (POC) [facility] Provider Start: 03-31-2022 End: 03-31-2022 STREP A MOLECULAR (POC) Ibis quick PA-C Work Phone: None (qualifier value) LEILA TOMLINSON MD SARS-CoV-2 & FLU Ant igen (Rapid) Urine culture Urine culture Plan of Treatment Date Care Activity Detail Author Start: 03-16-2034 Urine microalbumin profile DTaP,Tdap,Td Vaccine (8 - Td or Tdap) [facility] Start: 06-24-2027 Screening for malign ant neoplasm of cervix Cervical Cancer Screening [facility] Start: 05-08-2026 Annual PCP Team Senior Marketing Associate jevon Disease Visit Annual PCP Team Chronic Disease Visit [facility] Start: 08-23-2025 End: 11-22-2025 Thyrotropin [Units/volume] in Serum or Plasma THYROID STIMULATING HORMONE Lab Routine Acquired hypothyroidism Expected: 08/23/2025, Expires: 11/22/2025 [facility] Work Phone: Comment on above: Expected: 08/23/2025 , Expires: 11/22/2025 Start: 08-23-2025 End: 11-22-2025 Thyroxine (T4) free [Mass/volume] in Serum or Plasma T4 FREE/FREE THYROXINE Lab Routine Acquired hypothyroidism Expected: 08/23/2025, Expires: 11/22/2025 [facility] Comment on above: Expected: 08/23/2025 , Expires: 11/22/2025 Start: 08-21-2025 End: 08-21-2025 Patient encounter procedure 08/21/2025 2:00 PM EST Office Visit Endocrinology [address] [place] [address] Ruthie Luna MD [address] [place] [address] 6 MTH F/U HYPOTHYROIDISM Endocrinology Comment on above: 6 MTH F/U HYPOTHYROI DISM Start: 07-01-2025 PAP TESTING PAP TESTING [facility] Start: 07-01-2025 Screening for malign ant neoplasm of cervix [facility] Start: 06-26-2025 End: 06-26-2025 Patient encounter procedure 06/26/2025 2:20 PM EDT Office Visit OB/Gynecology [address] [place] [address] Mildred Larkin MD [address] [place] [address] Annual OB/Gynecology Comment on above: Annual Start: 06-12-2025 Influenza vaccination [facility] Start: 04-15-2025 [facility] Start: 04-15-2025 Streptococcus pyogen es (PCR) Streptococcus pyogenes (PCR) [facility] Start: 03-22-2025 End: 03-22-2025 Patient encounter procedure 03/22/2025 3:20 PM EDT Office Visit OB/Gynecology [address] [place] [address] Karina Kwong MD [address] [place] [address] Nexplanon removal OB/Gynecology Comment on above: Nexplanon removal Start: 03-03-2025 End: 03-03-2025 Patient encounter procedure 03/03/2025 11:40 AM EDT Office Visit Endocrinology [address] [place] [address] Ruthie Luna MD [address] [place] [address] 2 MTH F/U Endocrinology Comment on above: 2 MTH F/U Start: 02-22-2025 End: 02-22-2025 Patient encounter procedure 02/22/2025 1:45 PM EDT Office Visit OB/Gynecology [address] [place] [address] Binta Carcamo APRN.CNM [address] [place] [address] 4 month f/u OB/Gynecology Comment on above: 4 month f/u Start: 01-24-2025 End: 01-24-2025 Patient encounter procedure 01/24/2025 1:40 PM EDT Office Visit Endocrinology [address] [place] [address] Ruthie Luna MD [address] [place] [address] 2 MTH F/U Endocrinology Comment on above: 2 MTH F/U Start: 01-20-2025 End: 01-20-2025 ambulatory 01/20/2025 2:00 PM EDT Results Only [facility] [facility] [address] [place] [address] LABS [facility] Comment on above: LABS Start: 01-12-2025 End: 04-13-2025 Comprehensive metabolic 2000 panel - Serum or Plasma [facility] Work Phone: Comment on above: Expected: 01/12/2025 , Expires: 04/13/2025 Start: 11-22-2024 End: 02-21-2025 Thyrotropin [Units/volume] in Serum or Plasma THYROID STIMULATING HORMONE Lab Routine Acquired hypothyroidism Expected: 11/22/2024, Expires: 02/21/2025 [facility] Work Phone: Comment on above: Expected: 11/22/2024 , Expires: 02/21/2025 Start: 11-22-2024 End: 02-21-2025 Thyroxine (T4) free [Mass/volume] in Serum or Plasma T4 FREE/FREE THYROXINE Lab Routine Acquired hypothyroidism Expected: 11/22/2024, Expires: 02/21/2025 [facility] Comment on above: Expected: 11/22/2024 , Expires: 02/21/2025 Start: 11-22-2024 End: 11-22-2024 Patient encounter procedure 11/22/2024 8:00 AM EST Office Visit Endocrinology [address] [place] [address] Ruthie Luna MD [address] [place] [id number] Elevated TSH [R79.89] Endocrinology Comment on above: Elevated TSH [R79.89 ] Start: 10-31-2024 End: 10-31-2024 ambulatory 10/31/2024 1:00 PM EST Results Only [place] [facility] [address] [place] [address] THYROID PEROXIDASE ANTIBODY [facility] Comment on above: THYROID PEROXIDASE A NTIBODY Start: 10-27-2024 End: 01-26-2025 THYROID PEROXIDASE ANTIBODY THYROID PEROXIDASE ANTIBODY Lab Routine Elevated TSH Expected: 10/27/2024, Expires: 01/26/2025 [facility] Comment on above: Expected: 10/27/2024 , Expires: 01/26/2025 Start: 10-27-2024 End: 01-26-2025 Thyroxine (T4) free [Mass/volume] in Serum or Plasma [facility] Work Phone: Comment on above: Expected: 10/27/2024 , Expires: 01/26/2025 Start: 10-25-2024 End: 01-24-2025 Thyrotropin [Units/volume] in Serum or Plasma [facility] Work Phone: Comment on above: Expected: 10/25/2024 , Expires: 01/24/2025 Start: 08-29-2024 End: 11-28-2024 HERPES SIMPLEX IGM, WITH REFLEX IGG ABS [facility] Comment on above: Expected: 08/29/2024 , Expires: 11/28/2024 Start: 08-29-2024 End: 11-28-2024 Herpes simplex virus+Varicella zoster virus DNA [Presence] in Unspecified specimen by JOSE with probe detection [facility] Work Phone: Comment on above: Expected: 08/29/2024 , Expires: 11/28/2024 Start: 06-24-2024 End: 06-24-2024 Patient encounter procedure 06/24/2024 1:40 PM EDT Office Visit OB/Gynecology [address] [place], [place] [address] Mihir Albright MD [address] [place] [address] 6 week OB/Gynecology Comment on above: 6 week Start: 06-12-2024 Covid-19 Vaccine ( season) Covid-19 Vaccine ( season) [facility] Start: 06-12-2024 Covid-19 Vaccine ( season) Covid-19 Vaccine ( season) [facility] Start: 06-12-2024 Influenza vaccination [facility] Start: 05-25-2024 End: 05-25-2024 Patient encounter procedure 05/25/2024 1:40 PM EDT Routine Office Visit OB/Gynecology [address] [place] [address] Karina Kwong MD [address] [place] [address] OB OB/Gynecology Comment on above: OB Start: 05-20-2024 End: 05-20-2024 Patient encounter procedure 05/20/2024 1:40 PM EDT Routine Office Visit OB/Gynecology [address] [place] [address] Karina Kwong MD [address] [place] [address] OB OB/Gynecology Comment on above: OB Start: 05-16-2024 End: 05-16-2024 Patient encounter procedure 05/16/2024 4:00 PM EDT Office Visit OB/Gynecology [address] [place] [address] Berta Eldridge APRN.CNM [address] [place] [address] BP check OB/Gynecology Comment on above: BP check Start: 05-13-2024 End: 05-13-2024 Patient encounter procedure 05/13/2024 1:15 PM EDT Routine Office Visit OB/Gynecology [address] [place] [address] Berta Eldridge APRN.CN [address] [place] [address] OB OB/Gynecology Comment on above: OB Start: 05-06-2024 End: 05-06-2024 Patient encounter procedure OB/Gynecology Comment on above: OB Start: 04-29-2024 End: 04-29-2024 Patient encounter procedure OB/Gynecology Comment on above: follow up growth ult rasound OB Start: 04-19-2024 End: 07-19-2024 Protein/Creatinine [Mass Ratio] in Urine PROTEIN / CREATININE RATIO Lab Routine Supervision of high risk in third trimester Elevated BP without diagnosis of hypertension Expected: 04/19/2024, Expires: 07/19/2024 [facility] Work Phone: Comment on above: Expected: 04/19/2024 , Expires: 07/19/2024 Start: 04-12-2024 End: 04-12-2024 Patient encounter procedure 04/12/2024 1:30 PM EDT Routine Office Visit OB/Gynecology [address] [place] [address] Mihir Albright MD [address] [place] [address] OB OB/Gynecology Comment on above: OB Start: 04-12-2024 End: 07-02-2024 ambulatory 04/12/2024 1:15 PM EDT Results Only [place] [facility] [address] [place] [address] labs [place] [facility] Comment on above: labs Start: 04-01-2024 End: 04-01-2024 Patient encounter procedure 04/01/2024 1:00 PM EDT Routine Office Visit OB/Gynecology [address] [place] [address] Growth/ follow up OB/Gynecology Comment on above: Growth/ follow up Start: 03-31-2024 End: 06-30-2024 CBC panel - Blood by Automated count COMPLETE BLOOD COUNT Lab Routine Anemia during in third trimester Expected: 03/31/2024, Expires: 06/30/2024 [facility] Comment on above: Expected: 03/31/2024 , Expires: 06/30/2024 Start: 03-31-2024 End: 03-31-2024 Patient encounter procedure 03/31/2024 1:15 PM EDT Routine Office Visit OB/Gynecology [address] [place] [address] Berta Eldridge APRN.[facility] [address] [place] [address] OB OB/Gynecology Comment on above: OB Start: 03-17-2024 End: 06-16-2024 GEST GLUC CYNDY, 3-HR, 100 GM, FASTING GEST GLUC CYNDY, 3-HR, 100 GM, FASTING Lab Routine Abnormal maternal glucose tolerance, antepartum Expected: 03/17/2024, Expires: 06/16/2024 [facility] Work Phone: Comment on above: Expected: 03/17/2024 , Expires: 06/16/2024 Start: 03-03-2024 End: 06-02-2024 CBC W Auto Differential panel - Blood COMPLETE BLOOD COUNT AND DIFFERENTIAL Lab Routine 23 weeks gestation of Supervision of high risk in second trimester Expected: 03/03/2024 (Approximate), Expires: 06/02/2024 [facility] Comment on above: Expected: 03/03/2024 (Approximate), Expires: 06/02/2024 Start: 03-03-2024 End: 06-02-2024 GESTATIONAL GLUCOSE SCREEN, 1-HOUR, 50 GRAM, NON-FASTING GESTATIONAL GLUCOSE SCREEN, 1-HOUR, 50 GRAM, NON-FASTING Lab Routine 23 weeks gestation of Supervision of high risk in second trimester Expected: 03/03/2024 (Approximate), Expires: 06/02/2024 [facility] Work Phone: Comment on above: Expected: 03/03/2024 (Approximate), Expires: 06/02/2024 Start: 03-03-2024 End: 06-02-2024 SYPHILIS TOTAL W/REFLEX SYPHILIS TOTAL W/REFLEX Lab Routine 23 weeks gestation of Supervision of high risk in second trimester Expected: 03/03/2024 (Approximate), Expires: 06/02/2024 [facility] Comment on above: Expected: 03/03/2024 (Approximate), Expires: 06/02/2024 Start: 03-03-2024 End: 06-02-2024 TYPE + SCREEN TYPE + SCREEN Blood Bank Routine 23 weeks gestation of Supervision of high risk in second trimester Expected: 03/03/2024 (Approximate), Expires: 06/02/2024 [facility] Comment on above: Expected: 03/03/2024 (Approximate), Expires: 06/02/2024 Start: 03-03-2024 End: 03-03-2024 Patient encounter procedure 03/03/2024 1:00 PM EDT Routine Office Visit OB/Gynecology [address] [place] [address] Berta Eldridge APRN.[facility] [address] [place] [address] LISA/ gluclose lab OB/Gynecology Comment on above: LISA/ gluclose lab Start: 03-03-2024 End: 03-03-2024 ambulatory 03/03/2024 12:45 PM EDT Results Only [place] [facility] [address] [place] [address] lab [facility] Comment on above: lab Start: 01-12-2024 PAP TESTING PAP TESTING [facility] Start: 11-17-2023 End: 11-17-2024 OBSTETRIC ULTRASOUND WHI OBSTETRIC ULTRASOUND WHI Anc Imaging Routine 12 weeks gestation of Encounter for supervision of normal first in first trimester Expected: 11/17/2023, Expires: 11/17/2024 [facility] Work Phone: Comment on above: Expected: 11/17/2023 , Expires: 11/17/2024 Start: 11-10-2023 Annual PCP Team Senior Marketing Associate jevon Disease Visit Annual PCP Team Chronic Disease Visit [facility] Start: 10-12-2023 Behavioral Health Screening Behavioral Health Screening [facility] Start: 10-12-2023 [facility] Start: 07-01-2023 CHLAMYDIA SCREENING (18-24) CHLAMYDIA SCREENING (18-24) [facility] Start: 07-01-2023 GC (GONORRHEA) SCREENING (18-24) GC (GONORRHEA) SCREENING (18-24) [facility] Start: 06-12-2023 Covid-19 Vaccine (2022-24 season) Covid-19 Vaccine (2022-24 season) [facility] Start: 06-12-2023 Influenza vaccination Influenza Vacc ine (#1) [facility] Start: 01-16-2023 [facility] Start: 10-12-2022 DEPRESSION ASSESSMENT DEPRESSION ASS ESSMENT [facility] Start: 09-27-2022 CHLAMYDIA SCREENING (18-24) CHLAMYDIA SCREENING (18-24) [facility] Start: 09-27-2022 GC (GONORRHEA) SCREENING (18-24) GC (GONORRHEA) SCREENING (18-24) [facility] Start: 06-12-2022 Influenza vaccination [facility] Start: 10-12-2021 DEPRESSION ASSESSMENT DEPRESSION ASS ESSMENT [facility] Start: 07-28-2021 Urine microalbumin profile [facility] Start: 02-14-2021 COVID-19 VACCINE (2 - Booster for Rbitney series) COVID-19 VACCINE (2 - Booster for Britney series) [facility] Start: 2016 Anxiety Screening Anxiety Screening [facility] Start: 2016 Depression Screening Depression Scre ening [facility] Start: 2016 Spirometry Spirometry [facility] Start: 10-02-2014 HPV VACCINE (3 - 3-d ose series) HPV VACCINE (3 - 3-dose series) [facility] Start: 2014 Meningococcal B Vaccine: Consider Based On Risk (1 of 2 - Patient Seeks Protection) Meningococcal B Vaccine: Consider Based On Risk (1 of 2 - Patient Seeks Protection) [facility] Start: 08-25-2014 HPV Vaccine (3 - 3-d ose series) HPV Vaccine (3 - 3-dose series) [facility] Start: 2012 PEDS TO ADULT TRANSITION ANNUAL ASSESSMENT PEDS TO ADULT TRANSITION ANNUAL ASSESSMENT [facility] Start: 2010 Adult depression screening assessment DEPRESSION SCREENING [facility] Start: 2010 PEDS TO ADULT TRANSITION INITIAL DISCUSSION PEDS TO ADULT TRANSITION INITIAL DISCUSSION [facility] Start: 2008 MENINGOCOCCAL B: Consider based on risk (1 of 2 - Risk Bexsero 2-dose series) MENINGOCOCCAL B: Consider based on risk (1 of 2 - Risk Bexsero 2-dose series) [facility] Start: 2004 Pneumococcal vaccination Pneumococcal Vaccine (1 of 2 - PCV) [facility] ALERE STREP A TEST (AG) ALERE ST REP A TEST (AG) Lab Routine Sore throat Ordered: 06/23/2022 [facility] Work Phone: Comment on above: Ordered: 06/23/2022 Bacteria identified in Urine by Culture Urine Culture [facility] Bacteria identified in Urine by Culture URINE CULTURE Microbiology Routine Urinary frequency 07/22/2024 3:04 PM EDT [facility] Work Phone: BACTERIAL VAGINOSIS AMPLIFICATION BACTERIAL VAGINOSIS AMPLIFICATION Lab Routine Screen for STD (sexually transmitted disease) 07/01/2022 11:20 AM EDT [facility] Work Phone: BACTERIAL VAGINOSIS AMPLIFICATION BACTERIAL VAGINOSIS AMPLIFICATION Lab Routine Screen for STD (sexually transmitted disease) 12/26/2022 3:13 PM EDT [facility] Work Phone: BACTERIAL VAGINOSIS NAAT BACTERIAL VAGINOSIS NAAT Lab Routine Vaginal discharge 07/22/2024 3:04 PM [facility] BACTERIAL VAGINOSIS NAAT BACTERIAL VAGINOSIS NAAT Lab Routine Screen for STD (sexually transmitted disease) Vaginal discharge Vaginal itching 08/29/2024 3:06 PM [facility] BACTERIAL VAGINOSIS NAAT BACTERIAL VAGINOSIS NAAT Lab Routine Vaginal discharge 09/13/2024 2:00 PM [facility] BACTERIAL VAGINOSIS NAAT BACTERIAL VAGINOSIS NAAT Lab Routine Vaginal discharge Vaginal itching 01/12/2025 8:33 AM [facility] End: 10-26-2024 BIOPHYSICAL PROFILE US [facility] BIOPHYSICAL PROFILE [facility] Anc Imaging Routine Decreased movements in third trimester, single or unspecified fetus Once per week for 10 Occurrences starting 04/29/2024 until 10/26/2024 [facility] Work Phone: Comment on above: Once per week for 10 Occurrences starting 04/29/2024 until 10/26/2024 DAX / TRICHOMONA S AMPLIFICATION DAX / TRICHOMONAS AMPLIFICATION Microbiology Routine Screen for STD (sexually transmitted disease) 07/01/2022 11:20 AM [facility] Work Phone: DAX / TRICHOMONA S AMPLIFICATION DAX / TRICHOMONAS AMPLIFICATION Microbiology Routine Screen for STD (sexually transmitted disease) 12/26/2022 3:13 PM [facility] Work Phone: DAX/TRICHOMONAS NAAT DAX/TRICHOMONAS NAAT Lab Routine Screen for STD (sexually transmitted disease) Vaginal discharge Vaginal itching 08/29/2024 3:06 PM [facility] DAX/TRICHOMONAS NAAT ADX/TRICHOMONAS NAAT Lab Routine Vaginal discharge 09/13/2024 2:00 PM [facility] DAX/TRICHOMONAS NAAT DAX/TRICHOMONAS NAAT Lab Routine Vaginal discharge Vaginal itching 01/12/2025 8:33 AM [facility] Chlamydia trachomatis+Neisseria gonorrhoeae DNA [Presence] in Unspecified specimen by JOSE with probe detection GC/CHLAMYDIA DNA DET Lab Routine Screen for STD (sexually transmitted disease) 07/01/2022 11:20 AM [facility] Work Phone: Chlamydia trachomatis+Neisseria gonorrhoeae DNA [Presence] in Unspecified specimen by JOSE with probe detection GC/CHLAMYDIA DNA DET Lab Routine Screen for STD (sexually transmitted disease) 12/26/2022 3:13 PM EDT [facility] Work Phone: Chlamydia trachomatis+Neisseria gonorrhoeae DNA [Presence] in Unspecified specimen by JOSE with probe detection GONORRHEA/CHLAMYDIA NAAT Lab Routine Screen for STD (sexually transmitted disease) Vaginal discharge Vaginal itching 08/29/2024 3:06 PM [facility] Chlamydia trachomatis+Neisseria gonorrhoeae DNA [Presence] in Unspecified specimen by JOSE with probe detection GONORRHEA/CHLAMYDIA NAAT Lab Routine Vaginal discharge 09/13/2024 2:00 PM [facility] Work Phone: Chlamydia trachomatis+Neisseria gonorrhoeae DNA [Presence] in Unspecified specimen by JOSE with probe detection GONORRHEA/CHLAMYDIA NAAT Lab Routine Vaginal discharge Vaginal itching 01/12/2025 8:33 AM EDT [facility] NEXPLANON INSERTION NEXPLANON IN SERTION Procedures Routine Insertion of Nexplanon Ordered: 07/01/2022 [facility] Work Phone: Comment on above: Ordered: 07/01/2022 NEXPLANON REMOVAL NEXPLANON AARON ELANA Procedures Routine Nexplanon removal Ordered: 07/01/2022 [facility] Work Phone: Comment on above: Ordered: 07/01/2022 NEXPLANON REMOVAL NEXPLANON AARON ELANA Procedures Routine Nexplanon removal Ordered: 03/10/2025 [facility] Work Phone: Comment on above: Ordered: 03/10/2025 End: 09-27-2024 OBSTETRIC ULTRASOUND WHI OBSTETRIC ULTRASOUND I Anc Imaging Routine Supervision of high risk in third trimester 31 weeks gestation of Once per month for 5 Occurrences starting 03/31/2024 until 09/27/2024 [facility] Work Phone: Comment on above: Once per month for 5 Occurrences starting 03/31/2024 until 09/27/2024 PAP FLUID CERVICAL SCREENING PAP FLUID CERVICAL SCREENING Lab Routine Encounter for gynecological examination (general) (routine) without abnormal findings Screening for cervical cancer Encounter for screening for human papillomavirus (HPV) 07/01/2022 11:20 AM EDT [facility] Work Phone: PAP TEST PAP TEST Lab Mag chris care and examination Encounter for screening for malignant neoplasm of cervix 06/24/2024 2:20 PM EDT [facility] Work Phone: Patient Education [facility] Work Phone: Patient referral [facility] Work Phone: ROUTINE, GR OUP B STREP PCR ROUTINE, GROUP B STREP PCR Microbiology Routine Encounter for supervision of high risk in third trimester, antepartum 36 weeks gestation of Anemia during in third trimester Excessive growth affecting management of in third trimester, single or unspecified fetus Tobacco smoking complicating in third trimester 04/29/2024 2:56 PM EDT [facility] SARS-CoV-2 (COVID-19 ) RNA [Presence] in Respiratory specimen by JOSE with probe detection 2019 CORONAVIRUS Microbiology Routine Sore throat 03/31/2022 1:06 PM EDT [facility] Work Phone: Streptococcus pyogen es antigen assay Group A Streptococcus Rapid Screen [facility] Work Phone: Streptococcus pyogen es rRNA [Presence] in Throat by Probe [facility] Immunizations Immunization Date Immunization Notes Care Provider Lenny tello 03-16-2024 RHO(D) immune globul in- IV or IM Berta Eldridge SUPERVISOR FRAME [employer]SEMBLY.CNM Work Phone: [facility] 03-16-2024 tetanus toxoid, redu dang diphtheria toxoid, and acellular pertussis vaccine, adsorbed Berta Eldridge SUPERVISOR FRAME ASSEMBLY.CNM Work Phone: [facility] 01-05-2020 influenza, injectabl e, quadrivalent, preservative free Dr. Tremayne Quiñonez MD Work Phone: [facility] 01-05-2020 influenza, seasonal, injectable [facility] 01-05-2020 influenza virus vacc ine, unspecified formulation Berta Eldridge SUPERVISOR FRAME ASSEMBLY.CNM Work Phone: [facility] 06-02-2014 human papilloma viru s vaccine, quadrivalent Lg Rene MD Work Phone: [facility] 02-01-2014 human papilloma viru s vaccine, quadrivalent Lg Rene MD Work Phone: [facility] 02-01-2014 meningococcal polysaccharide (groups A, C, Y and W-135) diphtheria toxoid conjugate vaccine (MCV4P) Lg Rene MD Work Phone: [facility] 02-01-2014 varicella virus vaccine Cayla Rene MD Work Phone: [facility] 07-28-2011 tetanus toxoid, redu dang diphtheria toxoid, and acellular pertussis vaccine, adsorbed Lg Rene MD Work Phone: [facility] 07-28-2011 varicella virus vaccine Cayla Rene MD Work Phone: [facility] 03-19-2004 measles, mumps and rubella virus vaccine Lg Rene MD Work Phone: [facility] 03-19-2004 poliovirus vaccine, inactivated Lg Rene MD Work Phone: [facility] 03-14-2004 diphtheria, tetanus toxoids and acellular pertussis vaccine, 5 pertussis antigens Lg Rene MD Work Phone: [facility] 03-14-2004 measles, mumps and rubella virus vaccine Lg Rene MD Work Phone: [facility] 03-14-2004 poliovirus vaccine, inactivated Lg Rene MD Work Phone: [facility] 07-15-2000 measles, mumps and rubella virus vaccine Lg Rene MD Work Phone: [facility] 12-03-1999 diphtheria, tetanus toxoids and acellular pertussis vaccine, 5 pertussis antigens Lg Rene MD Work Phone: [facility] 12-03-1999 haemophilus influenz ae type b vaccine, HbOC conjugate Lg Rene MD Work Phone: [facility] 12-03-1999 poliovirus vaccine, inactivated Lg Rene MD Work Phone: [facility] 09-10-1999 hepatitis B vaccine, pediatric or pediatric/adolescent dosage Lg Rene MD Work Phone: [facility] 02-18-1999 diphtheria, tetanus toxoids and acellular pertussis vaccine, 5 pertussis antigens Lg Rene MD Work Phone: [facility] 02-18-1999 haemophilus influenz ae type b vaccine, HbOC conjugate Lg Rene MD Work Phone: [facility] 1998 diphtheria, tetanus toxoids and acellular pertussis vaccine, 5 pertussis antigens Lg Rene MD Work Phone: [facility] 1998 haemophilus influenz ae type b vaccine, HbOC conjugate Lg Rene MD Work Phone: [facility] 1998 poliovirus vaccine, inactivated Lg Rene MD Work Phone: [facility] 1998 diphtheria, tetanus toxoids and acellular pertussis vaccine, 5 pertussis antigens Lg Rene MD Work Phone: [facility] 1998 haemophilus influenz ae type b vaccine, HbOC conjugate Lg Rene MD Work Phone: [facility] 1998 hepatitis B vaccine, pediatric or pediatric/adolescent dosage Lg Rene MD Work Phone: [facility] 1998 poliovirus vaccine, inactivated Lg Rene MD Work Phone: [facility] 1998 hepatitis B vaccine, pediatric or pediatric/adolescent dosage Lg Rene MD Work Phone: [facility] Payers Date Payer Category Payer Self-pay [id number] 2022 Unknown [id number] 2022 Unknown [id number] 2021 Medicaid [employer] [place] [employer] [id number] 2021-Present [phone] [address] [place] [address] Medicaid [id number] 2021 Medicaid [id number] 1998 Unknown [id number] 1998 Unknown [id number] Unknown [id number] Unknown [id number] Unknown [id number] Unknown [id number] Social History Date Type Detail Facility Start: 07-26-2019 End: 06-24-2024 Tobacco smoking status NHIS Ex-smoker [facility] Work Phone: Start: 07-26-2019 End: 06-24-2024 Tobacco use and exposure Smokeless tobacco non-user [facility] Work Phone: Start: 01-13-2022 End: 05-08-2025 Alcohol intake Current non-drinker of alcohol (finding) [facility] Start: 2000 Sex Assigned At Female [facility] Start: 01-03-2022 End: 08-29-2022 Exposure to SARS-CoV-2 (event) Not sure [facility] Work Phone: Start: 02-06-2022 End: 06-23-2022 Tobacco Comment vaping [facility] Start: 05-08-2022 End: 03-12-2023 Tobacco smoking status NHIS Unknown if ever smoked [facility] Start: 01-04-2020 Sober [facility] Start: 01-04-2020 - [facility] Start: 01-28-2020 Alone [facility] History of tobacco use Current smoker [facility] Tobacco smoking status Never smo ked tobacco (finding) [facility] Start: 09-04-2023 [facility] Start: 07-06-2023 End: 12-30-2024 History of Social function [facility] Work Phone: Start: 07-06-2023 End: 12-30-2024 Tobacco use panel [facility] Work Phone: Start: 11-01-2013 Adult Depression Screening Assessment 2 [facility] Work Phone: History of tobacco use Cigarette Smoker [facility] The thought of rajiv zuñiga myself has occurred to me Never [facility] Start: 04-15-2025 Tobacco smoking stat us NHIS Smokes tobacco daily (finding) [facility] NEGATED: Highlighted row [facility] Goals Date Patient Goal Desired Activity /State Personal health goal Functional Status Date Assessment Result Facility 11-06-2022 Functional Status Standard Safet y ID band on, Call device within reach, Bed in low position, Wheels locked, Upper/Half-Length side-rails up, Bedside Cart Locked, Safety level maintained [facility] 02-05-2015 Are you deaf, or do you have serious difficulty hearing No 02/05/2015 1:25 PM EDT Sirena Sharma MA No [facility] 02-05-2015 Are you blind, or do you have serious difficulty seeing, even when wearing glasses No 02/05/2015 1:25 PM EDT Sirena Sharma MA No [facility] 02-05-2015 Do you have serious difficulty walking or climbing stairs No 02/05/2015 1:25 PM EDT Sirena Sharma MA No [facility] 02-05-2015 Do you have difficul ty dressing or bathing No 02/05/2015 1:25 PM EDT Sirena Sharma MA No [facility] 02-05-2015 Because of a physica l, mental, or emotional condition, do you have difficulty doing errands alone such as visiting a physician's office or shopping No 02/05/2015 1:25 PM EDT Sirena Sharma PAYAL No [facility] Mental Status Date Assessment Result Facility 11-06-2022 Mental Status Orientation Oriented x 4 [facility] 02-05-2015 Because of a physica l, mental, or emotional condition, do you have serious difficulty concentrating, remembering, or making decisions No 02/05/2015 1:25 PM EDT Sirena Sharma MA No [facility] Clinical Notes 07-28-2021 to 08-18-2025 Telephone Encounter - Em Rhodes RN - 05/31/2025 1:35 PM EDTTelephone Encounter - Em Rhodes RN - 05/31/2025 1:35 PM EDTTelephone Encounter - Itzel Robert MA - 05/31/2025 11:29 AM EDT Note Date & Type Note Facility 08-18-2025 Note HNO ID: [id number] Author: KELLI BOYLE APRN.UNDERGROUND UTILITY LOCATOR Service: ? Author Type: Nurse Practitioner Type: Progress Notes Filed: 08/18/2025 10:58 Note Text: CC: Patient presents with: Diarrhea: Diarrhea daily, vomiting HPI Jackson Ny is a 24 year old female who presents today for diarrhea and vomiting. Visit difficult to fully complete due to the severity of vomiting throughout visit. Recording using [employer] software for draft documentation of the visit was discussed with the patient/authorized primary care sales representative; all questions welcomed and answered. Patient/authorized primary care sales representative agreed to proceed Giorgio Ny is a 24-year-old female with a history of hypothyroidism, presenting with acute onset emesis and chronic diarrhea. Emesis: - Acute onset emesis, x2 episodes today. - Emesis described as "spit and phlegm." - Denies hematemesis. - Denies recent dietary changes; consumed leftover spaghetti made a few days ago. - Denies fever, chills, or myalgias. - Denies recent exposure to individuals with similar symptoms; notes a stomach flu outbreak among acquaintances a few weeks ago but no one recently - Denies recent travel. - Denies known food allergies; family history of food allergies. - Denies recent alcohol consumption; smokes marijuana daily, with last use this morning. - Denies known ; last menstrual period was recent. Is sexually active without use of protection. Chronic Diarrhea: - Chronic diarrhea, x2-3 months. - Bowel movements 3-7 times daily, with initial liquid consistency followed by semi-solid stool. - Associated with abdominal cramping and "very bad stomach aches." - Denies hematochezia or melena. - Denies dysuria or hematuria. - Retains appendix and gallbladder. Epigastric pain - Reports current epigastric pain, likely secondary to emesis. - Denies dyspnea, palpitations, or edema. Hypothyroidism: - Non-adherent to levothyroxine 75 mcg due to adverse effects. - Last thyroid function test approximately a few months ago right before she stopped her med due to it making her nauseated. REVIEW OF SYSTEMS See HPI PAST MEDICAL HISTORY Diagnosis Date Abnormal Pap smear of cervix 07/2019 [facility]IL Bacterial vaginosis Chlamydia infection 07/2019 Exercise-induced asthma (HCC) Generalized anxiety disorder Herpes simplex virus (HSV) infection Herpes, genital 2024 Infectious mononucleosis 01/2017 Trichimoniasis PAST SURGICAL HISTORY Procedure Laterality Date NONE ALLERGIES Amoxicillin and Lavender (Lavandula Angustifolia) MEDICATIONS levothyroxine (SYNTHROID) 75 mcg tablet Take 1 tablet by mouth once daily. prazosin (MINIPRESS) 1 mg cap Take 1 mg by mouth two times a day. QUEtiapine (SEROQUEL) 50 mg tablet Take 50 mg by mouth daily at bedtime. sertraline (ZOLOFT) 50 mg tablet Take 50 mg by mouth once daily. valACYclovir (VALTREX) 1 gram tablet Take 1 tablet by mouth once daily. FAMILY HISTORY Problem Relation Age of Onset No Known Problems Father No Known Problems Sister No Known Problems Sister No Known Problems Brother No Known Problems Brother No Known Problems Brother No Known Problems Brother No Known Problems Brother No Known Problems Brother No Known Problems Brother Stroke Maternal Grandfather other (Asthma) Other Grandparent SOCIAL HISTORY[1] PHYSICAL EXAM BP 148/90 Pulse 90 Temp 36.8 ?C (98.2 ?F) (Temporal) Resp 16 Wt 87.1 kg (192 lb) LMP 03/18/2025 (Approximate) SpO2 98% BMI 30.99 kg/m? General Appearance: patient pale, tired, and actively vomiting. alert Lungs: Lungs clear to auscultation. No wheezing, rhonchi, rales. Heart: RRR without murmur, gallop, or rubs. No ectopy Abdomen: Abdomen soft, . Bowel sounds normal. No masses, organomegaly. Mild tenderness reported to LUQ without grimacing, guarding, rigidity, or rebound pain. Health maintenance reviewed with patient: HPV Vaccine(3 - 3-dose series) due on 08/25/2014 Depression Screening Never done Anxiety Screening Never done Influenza Vaccine(1) due on 06/12/2025 Covid-19 Vaccine(2 - 2024- season) due on 06/12/2025 Annual PCP Team Chronic Disease Visit due on 05/08/2026 Cervical Cancer Screening due on 06/24/2027 DTaP,Tdap,Td Vaccine(8 - Td or Tdap) due on 03/16/2034 Hepatitis B Vaccine Completed Hepatitis C Screening Completed HIV Screening Completed DATA REVIEWED: No new labs Assessment/Plan 1. Nausea and vomiting in adult (R11.2) 2. Diarrhea, unspecified type (R19.7) 3. Left upper quadrant abdominal tenderness without rebound tenderness (R10.812) - Patient with visit having to e halted so patient can vomit in bucket she brought from home. After visit completed, patient agreeable to go to ER for IV antinausea medicine, evaluation, and possible IV fluids. Will follow up after visit for follow up and will not get US until after seen if imaging is completed in ER. - Acute onset vomiting (2 (more content not included)... [facility] 07-25-2025 Note HNO ID: [id number] Author: TAINA ALBRIGHT APRN.UNDERGROUND UTILITY LOCATOR Service: ? Author Type: Nurse Practitioner Type: Progress Notes Filed: 07/25/2025 12:36 Note Text: [facility] Cantu Jackson yN is a 24 year old female. Patient presents with: Diarrhea: Diarrhea and stomach pain x 1 day-also thinks she may have a yeast infection x 2-3 days Diarrhea The patient is a 24-year-old female with a history of hypothyroidism, presenting with acute diarrhea and abdominal pain, as well as concerns about a possible yeast infection. Diarrhea and Abdominal Pain: - Onset yesterday. - Uncertain if symptoms are improving. - Urgent bowel movement this morning, nearly unable to finish changing her son. - Called out of work due to symptoms. - Denies fever. - Reports intermittent gastrointestinal discomfort, attributing it to thyroid medication. - Admits to occasional non-adherence to thyroid medication. Vaginal Discomfort: - Onset a few days ago. - Describes as "uncomfortable" with increased discharge, but denies itching or burning. - Denies presence of sores. - Sexually active; has herpes but not currently experiencing an outbreak. - Discharge described as "normal" in color, possibly slightly brown, but mostly white. - Recently finished menstrual period. - Denies dysuria. Review of Systems Gastrointestinal: Positive for diarrhea. Constitutional: (-) fever Gastrointestinal: (+) diarrhea, (+) abdominal pain Genitourinary: (+) increased vaginal discharge, (+) vaginal discomfort, (-) dysuria, (-) vaginal itching, (-) pelvic pain, (-) genital sores Objective BP 116/78 Pulse 75 Temp 36.7 ?C (98 ?F) (Tympanic) Resp 18 Wt 91 kg (200 lb 9.9 oz) LMP 03/18/2025 (Approximate) SpO2 98% BMI 32.38 kg/m? Physical Exam Constitutional: Appearance: Normal appearance. Pulmonary: Effort: Pulmonary effort is normal. Neurological: Mental Status: She is alert. General: No acute distress. CV: Regular rate and rhythm. Resp: Lungs clear to auscultation bilaterally. Abd: No tenderness to palpation, bowel sounds normal. { 1. Vaginal discharge (N89.8) - No pain, itching, or sores; discharge described as white to brown, with recent menses. - Differential includes bacterial vaginosis, yeast infection, and STIs. - Collected vaginal swabs for bacterial vaginosis, yeast, chlamydia, gonorrhea, and trichomonas testing. - Discussed that bacterial vaginosis and yeast infections are not STDs and can occur independently. - Will treat according to results if any tests return positive. 2. Diarrhea, unspecified type (R19.7) - Acute onset yesterday; no associated fever or abdominal pain. - Patient suspects thyroid medication may be contributing. - Advised patient on the importance of consistent thyroid medication adherence and potential dangers of non-compliance, including heart arrhythmias. - Encouraged patient to discuss medication concerns with her doctor. and Recording using ambient [employer] software for draft documentation of the visit was discussed with the patient/authorized primary care sales representative; all questions welcomed and answered. Patient/authorized primary care sales representative agreed to proceed MDM Procedures [facility] 07-14-2025 Note HNO ID: [id number] Author: LINDA FELTON APRN.UNDERGROUND UTILITY LOCATOR Service: ? Author Type: Nurse Practitioner Type: Progress Notes Filed: 07/14/2025 17:16 Note Text: [facility] CARE [facility] Subjective Jackson Ny is a 24 year old female. Patient presents with: Vomiting: X last night, now resolved, needs work excuse Vomiting The patient is a 24-year-old female presenting for evaluation after experiencing multiple episodes of emesis last night. Emesis: - Vomited 3-4 times last night. - No emesis today. - Son, 14 months old, also vomited last night. - Stayed home from work today to avoid spreading potential illness. - Denies fever, chills, diarrhea, or abdominal pain today. - No current nausea; reports feeling "alright." Review of Systems Gastrointestinal: Positive for vomiting. Constitutional: (-) fever, (-) chills Gastrointestinal: (-) vomiting, (-) nausea, (-) diarrhea, (-) abdominal pain Objective BP 97/63 Pulse 83 Temp 37 ?C (98.6 ?F) Resp 18 Wt 90 kg (198 lb 6.6 oz) LMP 03/18/2025 (Approximate) SpO2 96% BMI 32.02 kg/m? PAST MEDICAL HISTORY Diagnosis Date - Abnormal Pap smear of cervix 07/2019 LSIL - Bacterial vaginosis - Chlamydia infection 07/2019 - Exercise-induced asthma (HCC) - Generalized anxiety disorder - Herpes simplex virus (HSV) infection - Herpes, genital 2024 - Infectious mononucleosis 01/2017 - Trichimoniasis PAST SURGICAL HISTORY Procedure Laterality Date - NONE ALLERGIES Amoxicillin and Lavender (Lavandula Angustifolia) MEDICATIONS - levothyroxine (SYNTHROID) 75 mcg tablet Take 1 tablet by mouth once daily. - prazosin (MINIPRESS) 1 mg cap Take 1 mg by mouth two times a day. - QUEtiapine (SEROQUEL) 50 mg tablet Take 50 mg by mouth daily at bedtime. - sertraline (ZOLOFT) 50 mg tablet Take 50 mg by mouth once daily. - valACYclovir (VALTREX) 1 gram tablet Take 1 tablet by mouth once daily. FAMILY HISTORY Problem Relation Age of Onset - No Known Problems Father - No Known Problems Sister - No Known Problems Sister - No Known Problems Brother - No Known Problems Brother - No Known Problems Brother - No Known Problems Brother - No Known Problems Brother - No Known Problems Brother - No Known Problems Brother - Stroke Maternal Grandfather - other (Asthma) Other Grandparent SOCIAL HISTORY[1] Physical Exam Vitals and nursing note reviewed. Constitutional: General: She is not in acute distress. Appearance: Normal appearance. She is not ill-appearing. Cardiovascular: Rate and Rhythm: Normal rate and regular rhythm. Heart sounds: Normal heart sounds. Pulmonary: Effort: Pulmonary effort is normal. No respiratory distress. Breath sounds: Normal breath sounds. No wheezing or rales. Abdominal: General: Bowel sounds are normal. There is no distension. Palpations: Abdomen is soft. There is no mass. Tenderness: There is no abdominal tenderness. There is no guarding. Neurological: Mental Status: She is alert. { 1. History of vomiting (Z87.898) - Acute episode of vomiting last night (3-4 times) with no further emesis today; no fever, chills, diarrhea, or abdominal pain; likely viral etiology. - Advised to maintain adequate hydration to replace fluid losses. - Recommended frequent handwashing upon return to work to minimize risk of transmission. - Provided work note for absence today. - Follow-up with your PCP in 3-5 days if symptoms have not improved or sooner if symptoms worsen - Discussed red flags and need for immediate medical evaluation if any occur. - Discussed supportive care treatment with fluids, rest and analgesia. - Discussed expected course of illness Linda Felton APRN.UNDERGROUND UTILITY LOCATOR and Recording using [employer] software for draft documentation of the visit was discussed with the patient/authorized primary care sales representative; all questions welcomed and answered. Patient/authorized primary care sales representative agreed to proceed Disposition The patient was discharged. Procedures [1] Social History Tobacco Use - Smoking status: Former Current packs/day: 0.25 Average packs/day: 0.3 packs/day for 0.5 years (0.1 ttl pk-yrs) Types: Cigarettes - Smokeless tobacco: Never Vaping Use - Vaping status: current everyday user - Substances: Nicotine, Flavoring - Devices: Disposable Substance Use Topics - Alcohol use: No - Drug use: Not Currently Frequency: 7.0 times per week Types: Marijuana [facility] 05-31-2025 Telephone encounter Note Images from the original note were not included. Most recent Endocrinology visit: Last encounter Visit on 03/10/2025 (with Ruthie Goyalm) 11/22/2024 in [facility] with BENDARAM, RUTHIE JENSEN for Acquired hypothyroidism 12/30/2024 in [facility] with BENDARAM, RUTHIE JENSEN for Elevated TSH 03/10/2025 in [facility] with BENDARAM, RUTHIE JENSEN for Acquired hypothyroidism Upcoming Endocrinology Appointments - Next 365 Days Visit Type Date Time Department EST ANGELO PATIENT 08/21/2025 2:00 PM [facility] Requested Prescriptions Pending Prescriptions Disp Refills levothyroxine (SYNTHROID) 75 mcg tablet 90 tablet 0 Sig: Take 1 tablet by mouth once daily. Hemoglobin A1c: None on file in the last 12 months Latest Ref Rng & Units 05/08/2025 12/30/2024 10/25/2024 TSH TSH 0.270 - 4.200 mIU/L 2.610 2.720 23.060 Latest Ref Rng & Units 12/30/2024 FREE T3 Free T3 2.3 - 4.1 pg/mL 3.1 Latest Ref Rng & Units 05/08/2025 12/30/2024 10/25/2024 FREE T4 Free T4 0.9 - 1.7 ng/dL 0.9 1.1 0.5 Thyroglobulin: None on file in the last 12 months Vitamin D: None on file in the last 12 months Latest Ref Rng & Units 05/08/2025 10/25/2024 04/19/2024 Hematocrit Hematocrit 36.0 - 46.0 % 36.2 37.9 33.3 Latest Ref Rng & Units 05/08/2025 01/12/2025 04/19/2024 Creatinine Creatinine 0.58 - 0.96 mg/dL 0.71 0.56 0.42 Latest Ref Rng & Units 05/08/2025 01/12/2025 04/19/2024 eGFR EGFR >=60 mL/min/1.73m 120 129 139 Latest Ref Rng & Units 05/08/2025 01/12/2025 04/19/2024 Potassium Potassium 3.7 - 5.1 mmol/L 4.3 4.2 2.7 Testosterone: None on file in the last 12 months IGF: None on file in the last 12 months Prolactin: None on file in the last 12 months [facility] 05-31-2025 Miscellaneous Notes Images from the original note were not included. Most recent Endocrinology visit: Last encounter Visit on 03/10/2025 (with Ruthie Luna) 11/22/2024 in [facility] with RUTHIE LUNA for Acquired hypothyroidism 12/30/2024 in [facility] with RUTHIE LUNA for Elevated TSH 03/10/2025 in [facility] with RUTHIE LUNA for Acquired hypothyroidism Upcoming Endocrinology Appointments - Next 365 Days Visit Type Date Time Department EST ANGELO PATIENT 08/21/2025 2:00 PM [facility] Requested Prescriptions Pending Prescriptions Disp Refills levothyroxine (SYNTHROID) 75 mcg tablet 90 tablet 0 Sig: Take 1 tablet by mouth once daily. Hemoglobin A1c: None on file in the last 12 months Latest Ref Rng & Units 05/08/2025 12/30/2024 10/25/2024 TSH TSH 0.270 - 4.200 mIU/L 2.610 2.720 23.060 Latest Ref Rng & Units 12/30/2024 FREE T3 Free T3 2.3 - 4.1 pg/mL 3.1 Latest Ref Rng & Units 05/08/2025 12/30/2024 10/25/2024 FREE T4 Free T4 0.9 - 1.7 ng/dL 0.9 1.1 0.5 Thyroglobulin: None on file in the last 12 months Vitamin D: None on file in the last 12 months Latest Ref Rng & Units 05/08/2025 10/25/2024 04/19/2024 Hematocrit Hematocrit 36.0 - 46.0 % 36.2 37.9 33.3 Latest Ref Rng & Units 05/08/2025 01/12/2025 04/19/2024 Creatinine Creatinine 0.58 - 0.96 mg/dL 0.71 0.56 0.42 Latest Ref Rng & Units 05/08/2025 01/12/2025 04/19/2024 eGFR EGFR >=60 mL/min/1.73m 120 129 139 Latest Ref Rng & Units 05/08/2025 01/12/2025 04/19/2024 Potassium Potassium 3.7 - 5.1 mmol/L 4.3 4.2 2.7 Testosterone: None on file in the last 12 months IGF: None on file in the last 12 months Prolactin: None on file in the last 12 months Pt calling from [place]. Her prescription was not authorized before she left for vacation. She would like it sent to pharmacy in [place]. She is out and will not return until next Thursday. Asking for [employer] message when it is sent. Pt pharmacy request updated in pended order. Itzel Robert MA Patient reports she is leaving town tomorrow morning and is requesting a refill as soon as possible. Karina Eugene MA documented in this encounter [facility] 05-31-2025 Telephone encounter Note Pt calling from [place]. Her prescription was not authorized before she left for vacation. She would like it sent to pharmacy in [place]. She is out and will not return until next Thursday. Asking for [employer] message when it is sent. Pt pharmacy request updated in pended order. Itzel Robert MA [facility] 05-29-2025 Telephone encounter Note Patient reports she is leaving town tomorrow morning and is requesting a refill as soon as possible. Karina Eugene MA [facility] 05-08-2025 Instructions Kelli Boyle APRN.CNP - 05/08/2025 1:52 PM EDT - Have your blood drawn today for the following tests so we can check what s contributing to your symptoms: Thyroid panel (to re-evaluate your levothyroxine dose) Vitamin B12 level Any additional routine labs we ve ordered - Continue taking levothyroxine, sertraline, prazosin, and Seroquel exactly as you have been - Work on incorporating more healthy food choices and finding small pockets of time for exercise around your schedule with your 1-year-old and work - We will review your lab results and discuss next steps when they re back; if you have new or worsening symptoms before then, please contact the office documented in this encounter [facility] 05-08-2025 Note HNO ID: [id number] Author: KELLI BOYLE APRN.CNP Service: ? Author Type: Nurse Practitioner Type: Progress Notes Filed: 05/08/2025 17:16 Note Text: CC: Patient presents with: Physical: Annual Physical HPI Jackson Ny is a 24 year old female who presents today for annual exam but also has some concerns. Recording using [employer] software for draft documentation of the visit was discussed with the patient/authorized primary care sales representative; all questions welcomed and answered. Patient/authorized primary care sales representative agreed to proceed Annual Wellness Exam: - Recent removal of Nexplanon implant, approximately one month ago. - Works at [employer]. - Has a 1-year-old child. - Denies regular exercise; diet described as "not terrible, but not that bad." Hypothyroidism: - Diagnosed approximately 6 months ago; currently taking levothyroxine as ordered by endocrinology. - Next thyroid level check scheduled for August. - Experiencing nausea, diarrhea, heat intolerance, and fatigue. - Nausea occurs in the morning after taking medication. - Diarrhea follows eating, lasting until around 11:00-12:00. - Heat intolerance described as feeling "a million degrees at all times." - Denies hair, skin, or nail changes. - Recent weight gain; questions if thyroid medication should cause weight loss. - Denies increased thirst hunger or urination - Denies dizziness, syncope, weakness, confusion, or severe headaches. - Denies fever, chills, cough, wheezing, or dyspnea. - Denies urinary changes or dysuria. - Denies emesis, but reports one episode of "phony spit stuff" at work. - Denies chest pressure edema or palpitations. - Denies abdominal pain. Anxiety and Depression: - Managed with Seroquel, prazosin, and sertraline as ordered by psychiatry. Sleep: is described as normal Alcohol use: does not drink any alcohol Drug use: No Appetite: good Suicidal Thoughts: No suicidal or homicidal ideation, intent or plan REVIEW OF SYSTEMS See HPI PAST MEDICAL HISTORY Diagnosis Date Abnormal Pap smear of cervix 07/2019 [facility] Bacterial vaginosis Chlamydia infection 07/2019 Exercise-induced asthma (HCC) Generalized anxiety disorder Herpes simplex virus (HSV) infection Herpes, genital 2024 Infectious mononucleosis 01/2017 Trichimoniasis PAST SURGICAL HISTORY Procedure Laterality Date NONE ALLERGIES Amoxicillin and Lavender (Lavandula Angustifolia) MEDICATIONS prazosin (MINIPRESS) 1 mg cap Take 1 mg by mouth two times a day. QUEtiapine (SEROQUEL) 50 mg tablet Take 50 mg by mouth daily at bedtime. sertraline (ZOLOFT) 50 mg tablet Take 50 mg by mouth once daily. levothyroxine (SYNTHROID) 75 mcg tablet Take 1 tablet by mouth once daily. valACYclovir (VALTREX) 1 gram tablet Take 1 tablet by mouth once daily. FAMILY HISTORY Problem Relation Age of Onset No Known Problems Father No Known Problems Sister No Known Problems Sister No Known Problems Brother No Known Problems Brother No Known Problems Brother No Known Problems Brother No Known Problems Brother No Known Problems Brother No Known Problems Brother Stroke Maternal Grandfather other (Asthma) Other Grandparent Social History Tobacco Use Smoking status: Former Current packs/day: 0.25 Average packs/day: 0.3 packs/day for 0.5 years (0.1 ttl pk-yrs) Types: Cigarettes Smokeless tobacco: Never Vaping Use Vaping status: current everyday user Substances: Nicotine, Flavoring Devices: Disposable Substance Use Topics Alcohol use: No Drug use: Not Currently Frequency: 7.0 times per week Types: Marijuana PHYSICAL EXAM BP 112/70 Pulse 82 Resp 16 Wt 90.3 kg (199 lb) LMP 03/18/2025 (Approximate) SpO2 98% BMI 32.12 kg/m? General Appearance: well appearing, in no acute distress, alert Pysch: mood and affect broad and appropriate Eyes: conjunctiva pink and moist, no icterus, sclera white, non-injected Neck: Thyroid normal size and symmetric without palpable nodules, Neck supple, No adenopathy Lymph nodes: No cervical lymphadenopathy and No supraclavicular lymphadenopathy Lungs: Lungs clear to auscultation. No wheezing, rhonchi, rales. Heart: RRR without murmur, gallop, or rubs. No ectopy Abdomen: Abdomen soft, non-tender. Bowel sounds normal. No masses, organomegaly Health maintenance reviewed with patient: HPV Vaccine(3 - 3-dose series) due on 10/02/2014 Depression Screening Never done Anxiety Screening Never done Annual PCP Team Chronic Disease Visit due on 11/10/2023 Influenza Vaccine(1) due on 06/12/2025 Cervical Cancer Screening due on 06/24/2027 DTaP,Tdap,Td Vaccine(8 - Td or Tdap) due on 03/16/2034 Hepatitis B Vaccine Completed Hepatitis C Screening Completed HIV Screening Completed DATA REVIEWED: No new labs Assessment/Plan 1. Annual physical exam (Z00.00) - Performed complete physical exam. - Ordered blood work. 2. Hypothyroidism, unspecified type (E03.9) (more content not included)... [facility] 05-08-2025 History of Presen t illness Narrative CC: Patient presents with: Physical: Annual Physical HPI Jackson Ny is a 24 year old female who presents today for annual exam but also has some concerns. Recording using [employer] software for draft documentation of the visit was discussed with the patient/authorized primary care sales representative; all questions welcomed and answered. Patient/authorized primary care sales representative agreed to proceed Annual Wellness Exam: - Recent removal of Nexplanon implant, approximately one month ago. - Works at [employer]. - Has a 1-year-old child. - Denies regular exercise; diet described as "not terrible, but not that bad." Hypothyroidism: - Diagnosed approximately 6 months ago; currently taking levothyroxine as ordered by endocrinology. - Next thyroid level check scheduled for August. - Experiencing nausea, diarrhea, heat intolerance, and fatigue. - Nausea occurs in the morning after taking medication. - Diarrhea follows eating, lasting until around 11:00-12:00. - Heat intolerance described as feeling "a million degrees at all times." - Denies hair, skin, or nail changes. - Recent weight gain; questions if thyroid medication should cause weight loss. - Denies increased thirst hunger or urination - Denies dizziness, syncope, weakness, confusion, or severe headaches. - Denies fever, chills, cough, wheezing, or dyspnea. - Denies urinary changes or dysuria. - Denies emesis, but reports one episode of "phony spit stuff" at work. - Denies chest pressure edema or palpitations. - Denies abdominal pain. Anxiety and Depression: - Managed with Seroquel, prazosin, and sertraline as ordered by psychiatry. Sleep: is described as normal Alcohol use: does not drink any alcohol Drug use: No Appetite: good Suicidal Thoughts: No suicidal or homicidal ideation, intent or plan REVIEW OF SYSTEMS See HPI PAST MEDICAL HISTORY Diagnosis Date Abnormal Pap smear of cervix 07/2019 [facility] Bacterial vaginosis Chlamydia infection 07/2019 Exercise-induced asthma (HCC) Generalized anxiety disorder Herpes simplex virus (HSV) infection Herpes, genital 2024 Infectious mononucleosis 01/2017 Trichimoniasis PAST SURGICAL HISTORY Procedure Laterality Date NONE ALLERGIES Amoxicillin and Lavender (Lavandula Angustifolia) MEDICATIONS prazosin (MINIPRESS) 1 mg cap Take 1 mg by mouth two times a day. QUEtiapine (SEROQUEL) 50 mg tablet Take 50 mg by mouth daily at bedtime. sertraline (ZOLOFT) 50 mg tablet Take 50 mg by mouth once daily. levothyroxine (SYNTHROID) 75 mcg tablet Take 1 tablet by mouth once daily. valACYclovir (VALTREX) 1 gram tablet Take 1 tablet by mouth once daily. FAMILY HISTORY Problem Relation Age of Onset No Known Problems Father No Known Problems Sister No Known Problems Sister No Known Problems Brother No Known Problems Brother No Known Problems Brother No Known Problems Brother No Known Problems Brother No Known Problems Brother No Known Problems Brother Stroke Maternal Grandfather other (Asthma) Other Grandparent Social History Tobacco Use Smoking status: Former Current packs/day: 0.25 Average packs/day: 0.3 packs/day for 0.5 years (0.1 ttl pk-yrs) Types: Cigarettes Smokeless tobacco: Never Vaping Use Vaping status: current everyday user Substances: Nicotine, Flavoring Devices: Disposable Substance Use Topics Alcohol use: No Drug use: Not Currently Frequency: 7.0 times per week Types: Marijuana PHYSICAL EXAM BP 112/70 Pulse 82 Resp 16 Wt 90.3 kg (199 lb) LMP 03/18/2025 (Approximate) SpO2 98% BMI 32.12 kg/m General Appearance: well appearing, in no acute distress, alert Pysch: mood and affect broad and appropriate Eyes: conjunctiva pink and moist, no icterus, sclera white, non-injected Neck: Thyroid normal size and symmetric without palpable nodules, Neck supple, No adenopathy Lymph nodes: No cervical lymphadenopathy and No supraclavicular lymphadenopathy Lungs: Lungs clear to auscultation. No wheezing, rhonchi, rales. Heart: RRR without murmur, gallop, or rubs. No ectopy Abdomen: Abdomen soft, non-tender. Bowel sounds normal. No masses, organomegaly Health maintenance reviewed with patient: HPV Vaccine(3 - 3-dose series) due on 10/02/2014 Depression Screening Never done Anxiety Screening Never done Annual PCP Team Chronic Disease Visit due on 11/10/2023 Influenza Vaccine(1) due on 06/12/2025 Cervical Cancer Screening due on 06/24/2027 DTaP,Tdap,Td Vaccine(8 - Td or Tdap) due on 03/16/2034 Hepatitis B Vaccine Completed Hepatitis C Screening Completed HIV Screening Completed DATA REVIEWED: No new labs Assessment/Plan 1. Annual physical exam (Z00.00) - Performed complete physical exam. - Ordered blood work. 2. Hypothyroidism, unspecified type (E03.9) 3. Heat intolerance (R68.89) 4. Diarrhea, unspecified type (R19.7) 5. Nausea (R11.0) 6. Other fatigue (R53.83) - On levothyroxine for approximately 6 months; experiencing nausea, diarrhea, heat intolerance, and fatigue. Patient concerned for no longer needing the levothyroxine. - Symptoms may be related to thyroid function or recent Nexplanon removal. - Ordered thyroid panel and B12 level. - Advised patient that symptoms may be due to hormonal changes following Nexplanon removal. Prescription instructions reviewed with patient as applicable. Potential red flag symptoms discussed with the patient. Reviewed appropriate action plan to take if red flag symptoms occur. Patient agreeable to treatment plan. Kelli Boyle APRN.LORI documented in this encounter [facility] 04-24-2025 Note HNO ID: [id number] Author: BINTA HATHAWAY APRN.LORI Service: ? Author Type: Nurse Practitioner Type: Progress Notes Filed: 04/24/2025 19:15 Note Text: [facility] Subjective Jackson Ny is a 24 year old female. Patient presents with: Vomiting: Vomiting x 1 day HPI Emesis: - Emesis x3-4 episodes this morning. - Denies diarrhea. - Reports feeling "hungover" every morning for the past few days, with symptoms resolving by midday. - Denies similar episodes in the past. - Admits to poor water intake, consuming mostly sugary drinks. 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 Depression and Anxiety: - Taking sertraline, prazosin, and Seroquel. Hypothyroidism: - Taking levothyroxine. Herpes Simplex Virus: - Taking Valtrex daily to prevent outbreaks. PAST MEDICAL HISTORY Diagnosis Date Abnormal Pap smear of cervix 07/2019 [facility] Bacterial vaginosis Chlamydia infection 07/2019 Exercise-induced asthma (HCC) Generalized anxiety disorder Herpes simplex virus (HSV) infection Herpes, genital 2024 Infectious mononucleosis 01/2017 Trichimoniasis PAST SURGICAL HISTORY Procedure Laterality Date NONE ALLERGIES Amoxicillin and Lavender (Lavandula Angustifolia) MEDICATIONS prazosin (MINIPRESS) 1 mg cap Take 1 mg by mouth two times a day. QUEtiapine (SEROQUEL) 50 mg tablet Take 50 mg by mouth daily at bedtime. sertraline (ZOLOFT) 50 mg tablet Take 50 mg by mouth once daily. levothyroxine (SYNTHROID) 75 mcg tablet Take 1 tablet by mouth once daily. valACYclovir (VALTREX) 1 gram tablet Take 1 tablet by mouth once daily. etonogestrel (NEXPLANON) 68 mg impl subdermal implant 68 mg by SUBDERMAL route one time only. FAMILY HISTORY Problem Relation Age of Onset No Known Problems Father No Known Problems Sister No Known Problems Sister No Known Problems Brother No Known Problems Brother No Known Problems Brother No Known Problems Brother No Known Problems Brother No Known Problems Brother No Known Problems Brother Stroke Maternal Grandfather other (Asthma) Other Grandparent Social History Tobacco Use Smoking status: Former Current packs/day: 0.25 Average packs/day: 0.3 packs/day for 0.5 years (0.1 ttl pk-yrs) Types: Cigarettes Smokeless tobacco: Never Vaping Use Vaping status: current everyday user Substances: Nicotine, Flavoring Devices: Disposable Substance Use Topics Alcohol use: No Drug use: Not Currently Frequency: 7.0 times per week Types: Marijuana Review of Systems Constitutional: (+) malaise Gastrointestinal: (+) vomiting, (-) diarrhea Objective BP 112/76 Pulse 65 Temp 37 ?C (98.6 ?F) (Tympanic) Resp 18 Wt 88.4 kg (194 lb 14.2 oz) LMP 03/18/2025 (Approximate) SpO2 100% BMI 31.46 kg/m? Physical Exam General: Well-appearing, no acute distress. CV: Regular rate and rhythm. Resp: Lungs clear to auscultation bilaterally. Abd: Soft, non-tender, bowel sounds present in all quadrants. { 1. Nausea and vomiting, unspecified vomiting type (R11.2) - Experienced 3-4 episodes of emesis this morning; symptoms have resolved. - No associated diarrhea; denies similar previous episodes. - Physical examination reveals well-nourished, well-developed female in no acute distress. HEENT is normocephalic, atraumatic. Abdomen is soft and non-tender with normal bowel sounds. Lungs are clear to auscultation bilaterally. Cardiac exam reveals regular rate and rhythm. Skin examination shows no lesions. - Advised to increase hydration, particularly water intake, to prevent dehydration. - Monitor for any recurrence of symptoms. 2. Encounter to obtain excuse from work (Z02.89) - Provided a work excuse note for today. - Cleared to return to work tomorrow. and Recording using [employer] software for draft documentation of the visit was discussed with the patient/authorized primary care sales representative; all questions welcomed and answered. Patient/authorized primary care sales representative agreed to proceed MDM Procedures [facility] 04-24-2025 History of Presen t illness Narrative [facility] Subjective Jackson Ny is a 24 year old female. Patient presents with: Vomiting: Vomiting x 1 day HPI Emesis: - Emesis x3-4 episodes this morning. - Denies diarrhea. - Reports feeling "hungover" every morning for the past few days, with symptoms resolving by midday. - Denies similar episodes in the past. - Admits to poor water intake, consuming mostly sugary drinks. 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 Depression and Anxiety: - Taking sertraline, prazosin, and Seroquel. Hypothyroidism: - Taking levothyroxine. Herpes Simplex Virus: - Taking Valtrex daily to prevent outbreaks. PAST MEDICAL HISTORY Diagnosis Date Abnormal Pap smear of cervix 07/2019 [facility] Bacterial vaginosis Chlamydia infection 07/2019 Exercise-induced asthma (HCC) Generalized anxiety disorder Herpes simplex virus (HSV) infection Herpes, genital 2024 Infectious mononucleosis 01/2017 Trichimoniasis PAST SURGICAL HISTORY Procedure Laterality Date NONE ALLERGIES Amoxicillin and Lavender (Lavandula Angustifolia) MEDICATIONS prazosin (MINIPRESS) 1 mg cap Take 1 mg by mouth two times a day. QUEtiapine (SEROQUEL) 50 mg tablet Take 50 mg by mouth daily at bedtime. sertraline (ZOLOFT) 50 mg tablet Take 50 mg by mouth once daily. levothyroxine (SYNTHROID) 75 mcg tablet Take 1 tablet by mouth once daily. valACYclovir (VALTREX) 1 gram tablet Take 1 tablet by mouth once daily. etonogestrel (NEXPLANON) 68 mg impl subdermal implant 68 mg by SUBDERMAL route one time only. FAMILY HISTORY Problem Relation Age of Onset No Known Problems Father No Known Problems Sister No Known Problems Sister No Known Problems Brother No Known Problems Brother No Known Problems Brother No Known Problems Brother No Known Problems Brother No Known Problems Brother No Known Problems Brother Stroke Maternal Grandfather other (Asthma) Other Grandparent Social History Tobacco Use Smoking status: Former Current packs/day: 0.25 Average packs/day: 0.3 packs/day for 0.5 years (0.1 ttl pk-yrs) Types: Cigarettes Smokeless tobacco: Never Vaping Use Vaping status: current everyday user Substances: Nicotine, Flavoring Devices: Disposable Substance Use Topics Alcohol use: No Drug use: Not Currently Frequency: 7.0 times per week Types: Marijuana Review of Systems Constitutional: (+) malaise Gastrointestinal: (+) vomiting, (-) diarrhea Objective BP 112/76 Pulse 65 Temp 37 C (98.6 F) (Tympanic) Resp 18 Wt 88.4 kg (194 lb 14.2 oz) LMP 03/18/2025 (Approximate) SpO2 100% BMI 31.46 kg/m Physical Exam General: Well-appearing, no acute distress. CV: Regular rate and rhythm. Resp: Lungs clear to auscultation bilaterally. Abd: Soft, non-tender, bowel sounds present in all quadrants. { 1. Nausea and vomiting, unspecified vomiting type (R11.2) - Experienced 3-4 episodes of emesis this morning; symptoms have resolved. - No associated diarrhea; denies similar previous episodes. - Physical examination reveals well-nourished, well-developed female in no acute distress. HEENT is normocephalic, atraumatic. Abdomen is soft and non-tender with normal bowel sounds. Lungs are clear to auscultation bilaterally. Cardiac exam reveals regular rate and rhythm. Skin examination shows no lesions. - Advised to increase hydration, particularly water intake, to prevent dehydration. - Monitor for any recurrence of symptoms. 2. Encounter to obtain excuse from work (Z02.89) - Provided a work excuse note for today. - Cleared to return to work tomorrow. and Recording using ambient Buzzient software for draft documentation of the visit was discussed with the patient/authorized primary care sales representative; all questions welcomed and answered. Patient/authorized primary care sales representative agreed to proceed MDM Procedures documented in this encounter [facility] 04-15-2025 Discharge summary [facility] 04-15-2025 Discharge summary Note Date/Time April 15, 2025 6:19pm [facility] Medical Records Department [address] [place] [address] Emergency Department Summary 04/15/25 MR#: [id number] Acct: [id number] Name: JACKSON [place] Rep #:[id number] : 2000 24 From: Tremayne Quiñonez MD PCP: Care Physician,No Primary Status :REG ER Location: ED HPI HPI - URI History of Present Illness Chief Complaint: Sore Throat Detail of Chief Complaint: Sore throat this morning. Able to swallow. No fever. Mild nonproductive Informant: patient Onset/Context/Timing Onset: Today and Hours Context: Gradual Onset Timing: Continuous Current Severity: Mild Maximum Severity: Mild Associated Symptoms Associated Symptoms: Positive for Nonproductive cough Narrative Narrative: Healthy 24-year-old female complaining of mild sore throat this morning. Nonproductive cough. No vomiting or diarrhea. No fever. Able to swallow. Prior similar symptoms: Yes Recent Illness/Hospitalization: No ROS ROS ED ROS Narrative Mild sore throat. Constitutional Constitutional ED: Denies chills or fever(s) Eyes Eyes: Denies blurry vision ENT ENT ED: Reports sore throat; Denies ear pain Cardiovascular Cardiovascular: Denies chest pain Respiratory/Chest Respiratory/Chest: Reports cough Gastrointestinal Gastrointestinal: Denies abdominal pain Genitourinary Genitourinary ED: Denies dysuria or hematuria Musculoskeletal Musculoskeletal: Denies arthralgias or back pain Integumentary Denies abscess Neurologic Neurologic: Denies headache(s) Psychiatric Psychiatric: Denies anxiety Endocrine Endocrinology: Denies cold intolerance Hematologic/Lymphatic Hematologic/Lymphatic: Denies easy bleeding, easy bruising or lymphadenopathy Allergic/Immunologic Allergic/Immunologic ED: Denies mouth swelling, tongue swelling or urticaria PFSH PFSH Medical History Nexplanon insertion Acute blood loss anemia atony of uterus with hemorrhage Severe preeclampsia Trauma PTSD (post-traumatic stress disorder) Anxiety Depression Pre-eclampsia History of pneumonia History of substance abuse Asthma Home Medications ?Medication ?Instructions ?Recorded ?Last Taken ?Type vit no.95-ferrous 1 tab PO DAILY 03/23/24 Unk nown History fumarate 28 mg-folic acid 800 mcg tablet () azithromycin 250 mg tablet 250 mg PO .COMPLEX #12 tabs 05/03/24 Unknown Rx pantoprazole 20 mg tablet,delayed 20 mg PO QDAY Unknown History release ferrous sulfate 325 mg (65 mg 325 mg PO QODAY 05/06/24 Unknown History iron) tablet (iron) ferrous sulfate 325 mg (65 mg 325 mg PO QODAY 60 days #30 tabs 05/10/24 Unknown Rx iron) tablet (FeroSul) ibuprofen 600 mg tablet 600 mg PO Q6H PRN Pain 20 da ys #60 05/10/24 Unknown Rx TABLETS labetalol 200 mg tablet 200 mg PO BID 10 days #20 ta bs 05/10/24 Unknown Rx Allergy/AdvReac Type Severity Reaction Status Date / Time amoxicillin (Amoxicillin) Allergy NOT SURE, Verified 04/15/25 17:30 WAS A BABY lavender (Lavandula Allergy Rash Verified 04/15/25 17:30 angustifolia) Family History Mother Depression Substance abuse Brother Depression Grandfather Substance abuse Social History Smoking Status: Current every day smoker tobacco type: e-cigarettes Tobacco: How many years used: 4 alcohol intake: former year quit: 2015 substance use type: former substance user 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 use: 04/09/18 and methamphetamine what type of physical activity do you participate in: yoga, aerobics and weighttraining frequency: 1-2 times per week EXAM Physical Exam Narrative Exam Narrative: 24-year-old female vital signs stable afebrile. Pulse ox 90% on room air no hypoxia. No distress. H EENT exam appears Ramming Actilite. TMs normal bilaterally. Posterior pharynx normal. No erythema or exudate. No peritonsillar abscess. No trouble swallowing or breathing. No drooling or stridor. Neck nontender no lymphadenopathy. Lungs clear to auscultation bilaterally. Heart regular rhythm no murmur. Rate about 90. Chest wall ribs nontender. Abdomen soft nontender. Moving all 4 extremities. Nontender no edema no cords. Neurologically she is awake alert no focal motor deficits. Benign exam. Const Vital Signs: 04/15/25 17:29 Temperature 97.1 F L Temperature Source Temporal Pulse Rate 92 Respiratory Rate 14 Blood Pressure 135/87 H Blood Pressure Mean 103 Pulse Ox 98 Oxygen Delivery Method Room Air Positive well nourished and well developed; Negative for cachectic or contractures General Appearance ED: well developed and NAD; Negative for cachectic, contractures, cyanotic, diaphoretic or pallor Nutritional Appearance: Negative for cachectic HEENT Reports moist mucous membranes normocephalic and atraumatic Throat: posterior oropharynx normal Eyes PERRL and EOMs intact bilaterally Neck no lymphadenopathy, supple, no meningeal signs and no JVD Resp normal respiratory effort and clear to auscultation bilaterally Cardio S1 normal heart sound, S2 normal heart sound and no murmurs Rate: regular rate Rhythm: regular rhythm GI non-tender, non-distended and no masses Auscultation: normoactive bowel sounds Palpation: soft; Negative for tender or guarding Back/Spine no CVA tenderness and normal ROM Extremity normal to inspection and full ROM Neuro oriented x3 and CN's II-XII intact bilaterally Sensorium / Orientation: alert, oriented to person, oriented to place and oriented to time; Negative for orientation impaired, lethargic or stuporous Motor Exam: strength 5/5 throughout Psych mental status grossly normal Mood & Affect: Negative for depressed, anxious or tearful Skin General Skin Exam: Negative for jaundice or pallor Lesions: no lesions Rashes: no rashes MDM MDM MDM Narrative Medical decision making narrative: 24-year-old female sore throat suspect viral pharyngitis. Rapid strep will be done she will be discharged home and call back in 2 hours to get her results shehas a small child with her. Clinically this does not look like strep or mono. She has got no lymphadenopathy. Warm salt water gargling. Tylenol Motrin. Follow-up as needed. History & Record Review Discussion w/independent historian: Patient and Family Additional record(s) reviewed:: Prior inpatient record, Prior outpatient record,Prior ED visit and Prior labs Discharge Plan Triage Chief Complaint: Sore Throat ED Provider: Tremayne Quiñonez Dx/Rx/DC Orders Clinical Impression: Viral pharyngitis Instructions: ED Pharyngitis, Viral Prescriptions: No Action pantoprazole 20 mg tablet,delayed release (DR/EC) 20 mg PO QDAY azithromycin 250 mg tablet 250 mg PO .COMPLEX Qty: 12 0RF Rx Instructions: 2 tablets (500 mg) on day 1, then 1 tablet daily on days 2 through 11 ferrous sulfate [iron] 325 mg (65 mg iron) tablet 325 mg PO QODAY labetalol 200 mg tablet 200 mg PO BID 10 Days Qty: 20 0RF Rx Instructions: Do not take unless we instruct you to start this ferrous sulfate [FeroSul] 325 mg (65 mg iron) tablet 325 mg PO QODAY 60 Days Qty: 30 1RF ibuprofen 600 mg tablet 600 mg PO Q6H PRN (Reason: Pain) 20 Days Qty: 60 1RF PNV cmb#95-ferrous fumarate-FA [] 28 mg iron- 800 mcg tablet 1 tab PO DAILY Primary Care Provider: Care Physician,No Primary Referrals: Care Physician,No Primary [Primary Care Provider] - Activity Restrictions/Additional Instructions: Warm salt water gargling. Throat lozenges. Motrin and Tylenol for pain. Follow-up if not improving or return if worse. Call the emergency department in [address] Quiñonez. I will take yourstrep results will take about 2 hours to come back. ER number is [phone]. Print Language: Mozambican Disposition Disposition: Home, Self Care What to do if you have Problems For any increased pain, shortness of breath, bleeding, nausea or vomiting, chestpain, or any unexpected problems, contact your Primary Care Provider. Call [facility] ([phone]) or report to the closest Emergency Room. Call 911 if necessary. 04/15/251818 <Electronically signed by Tremayne Quiñonez MD> Cosign Signature (if applicable): CC: No Primary Care Physician ~ Signed [facility] Work Phone: 1(494) 971-769507-05-2025 Hospital Discharge instructionsAdditional Instructions Warm salt water gargling. Throat lozenges. Motrin and Tylenol for pain. Follow-up if not improving or return if worse. Call the emergency department in [address] Quiñonez. I will take your strep results will take about 2 hours to come back. ER number is [phone].[facility] Work Phone: 1(149) 351-984206-11-2025 NoteHNO ID: [id number] Author: KARINA KWONG MD Service: ? Author Type: Physician Type: Progress Notes Filed: 03/22/2025 15:34 Note Text: Giorgio is a 24 year old who presents for Nexplanon removal for irregular periods. UNIVERSAL PROTOCOL / SAFETY CHECKLIST Procedure to be Performed: Nexplanon removal Sign In: A Moment of CARE was completed. Appropriate PPE (Personal Protective Equipment) worn by all providers involved with the procedure. Special equipment not required. Patient/Surrogate Stated/Verified: Patient name, Date of , Relevant allergies, and The intended procedure Time Out: Relevant labs, photos, and/or imaging studies have been reviewed. Intended patient and procedure match the source document(s) (e.g. consent, HANDP, associated studies [imaging, pathology]) match the intended patient and procedure. Consent obtained and matches the intended procedure. Yes. Correct side/site has been marked and visible. Medications required for this procedure are verified. Fire risk assessed and is not applicable. Implants: are not applicable. Sign Out: Specimens are all correctly labeled and sent. All instruments, equipment, possible retained foreign bodies are accounted for. Yes. The post-procedure plan of care has been communicated to the patient or surrogate. TECHNIQUE: Patient placed in supine position with left arm bent at the elbow and placed over the head. Skin cleansed with betadine. 2 mL of 1% lidocaine injected subQ along insertion site. Scalpel used to made a 5mm stab incision superficially at distal end of Nexplanon. Device removed under sterile technique with a small hemostat. Sterile pressure dressing applied. AANDP: 24 year old here for Nexplanon removal Nexplanon removed intact without difficulty. Karina Kwong, [facility]06-11-2025 History of Present illness Narrative* Karina Kwong MD - 03/22/2025 3:12 PM EDT Giorgio is a 24 year old who presents for Nexplanon removal for irregular periods. UNIVERSAL PROTOCOL / SAFETY CHECKLIST Procedure to be Performed: Nexplanon removal Sign In: A Moment of CARE was completed. Appropriate PPE (Personal Protective Equipment) worn by all providers involved with the procedure. Special equipment not required. Patient/Surrogate Stated/Verified: Patient name, Date of , Relevant allergies, and The intended procedure Time Out: Relevant labs, photos, and/or imaging studies have been reviewed. Intended patient and procedure match the source document(s) (e.g. consent, H&P, associated studies [imaging, pathology]) match the intended patient and procedure. Consent obtained and matches the intended procedure. Yes. Correct side/site has been marked and visible. Medications required for this procedure are verified. Fire risk assessed and is not applicable. Implants: are not applicable. Sign Out: Specimens are all correctly labeled and sent. All instruments, equipment, possible retained foreign bodies are accounted for. Yes. The post-procedure plan of care has been communicated to the patient or surrogate. TECHNIQUE: Patient placed in supine position with left arm bent at the elbow and placed over the head. Skin cleansed with betadine. 2 mL of 1% lidocaine injected subQ along insertion site. Scalpel used to made a 5mm stab incision superficially at distal end of Nexplanon. Device removed under sterile technique with a small hemostat. Sterile pressure dressing applied. A&P: 24 year old here for Nexplanon removal Nexplanon removed intact without difficulty. Karina Kwong MD [facility] Telephone encounter Note * Telephone Encounter - Binta Carcamo APRN.CNM - 03/10/2025 4:32 PM EDT Order signed. Binta Carcamo APRN.CNM [facility]05-30-2025 Miscellaneous Notes* Telephone Encounter - Binta Carcamo APRN.CNM - 03/10/2025 4:32 PM EDT Order signed. Binta Carcamo APRN.CNM * Telephone Encounter - Em Carter - 03/10/2025 3:17 PM EDT PT requesting appt for nexplanon removal. Appt has been scheduled please place order to attatch to appt. Thank you [facility] Telephone encounter Note * Telephone Encounter - Em Carter - 03/10/2025 3:17 PM EDT PT requesting appt for nexplanon removal. Appt has been scheduled please place order to attatch to appt. Thank you [facility]05-30-2025 Instructions* Patient Instructions* Ruthie Luna MD - 03/10/2025 3:09 PM EDT Please continue the same dose of levothyroxine 75 mcg daily Repeat labs in 6 months [facility] NoteHNO ID: [id number] Author: RUTHIE LUNA MD Service: ? Author Type: Physician Type: Progress Notes Filed: 03/12/2025 23:15 Note Text: [facility] Follow up note CONSULTING PROVIDER: Reagan Campos APRN. LORI (OBGYN) My final recommendations will be communicated back to the requesting provider by way of shared Medical record or a letter via [place] mail Subjective: Jackson Ny is a 24 year old female here to establish care for evaluation of hypothyroidism. Initial visit on 11/22/24 MARY ANNE 12/30/24 As per prior documentation, She is 7 months now, post her first . Post , she had PPH, and has not stopped for 4 months so thyroid labs were checked last month. This is the first time ever thyroid function was ever checked She stopped breast feeding few months ago, as she had to use antibiotics for STD Interval history: 03/10/25 She reports improvement in fatigue/tiredness Menstrual irregularities: has frequent or excess bleeding since delivery- but has seen OBGYN and it was indicated that nexplanon might be contributing to irregular cycles, recommendation was to remove it, which patient is considering ash as she is not sexually active now and is not planning on use of any alternative contraception either post removal Family history: no autoimmune or thyroid issues REVIEW OF SYSTEMS: 10 point ROS was reviewed and negative unless indicated in the HPI ALLERGIES: ALLERGIES Allergen Reactions Amoxicillin Swelling Lavender (Lavandula* Rash MEDICATIONS: Current Outpatient Medications on File Prior to Visit Medication Sig Levonorgestrel-Ethinyl Estrad (AVIANE) 0.1mg - 20mcg per tablet Take 1 tablet by mouth once daily. etonogestrel (NEXPLANON) 68 mg impl subdermal implant 68 mg by SUBDERMAL route one time only. fluticasone (FLONASE) 50 mcg/actuation nasal spray Use 2 Sprays in each nostril once daily. Rinse mouth after use. (Patient not taking: Reported on 11/22/2024) No current facility-administered medications on file prior to visit. PAST MEDICAL HISTORY: PAST MEDICAL HISTORY Diagnosis Date Abnormal Pap smear of cervix 07/2019 LSIL Bacterial vaginosis Chlamydia infection 07/2019 Exercise-induced asthma (HCC) Generalized anxiety disorder Herpes simplex virus (HSV) infection Herpes, genital 2024 Infectious mononucleosis 01/2017 Trichimoniasis PAST SURGICAL HISTORY: PAST SURGICAL HISTORY Procedure Laterality Date NONE FAMILY HISTORY: FAMILY HISTORY Problem Relation Age of Onset No Known Problems Father No Known Problems Sister No Known Problems Sister No Known Problems Brother No Known Problems Brother No Known Problems Brother No Known Problems Brother No Known Problems Brother No Known Problems Brother No Known Problems Brother Stroke Maternal Grandfather other (Asthma) Other Grandparent SOCIAL HISTORY: Social History Tobacco Use Smoking status: Former Current packs/day: 0.25 Average packs/day: 0.3 packs/day for 0.5 years (0.1 ttl pk-yrs) Types: Cigarettes Smokeless tobacco: Never Vaping Use Vaping status: current everyday user Substances: Nicotine, Flavoring Devices: Disposable Substance Use Topics Alcohol use: No Drug use: Not Currently Frequency: 7.0 times per week Types: Marijuana PHYSICAL EXAM: BP 110/70 (BP Site: Right Arm, BP Position: Sitting, BP Cuff Size: Regular Adult) Pulse 95 Temp 37 ?C (98.6 ?F) (Temporal Artery) Ht 167.6 cm (5' 6") Wt 86.9 kg (191 lb 9.6 oz) LMP 02/24/2025 (Approximate) SpO2 98% BMI 30.93 kg/m? Unchanged from prior visit one month ago General: Alert and oriented x3, no acute distress Eyes: Anicteric sclera. Extraocular movements are intact. Neck supple, no cervical lymphadenopathy Thyroid: slight enlargement of thyroid in size, normal texture, no palpable nodules Lungs: Breathing unlabored on room air Heart regular rate and rhythm Musculoskeletal: Muscular strength intact, No joint swelling, deformity, or tenderness Neuro: Gait normal. No focal findings Abdomen:Normal abdominal sounds, non tender to palpation, no tremors of outstretched arms Extremities: without edema, no deformities Skin: no rashes/ erythema LABS: TSH Date Value Ref Range Status 12/30/2024 2.720 0.270 - 4.200 mIU/L Final Comment: If the patient is , TSH reference range varies by gestational period: First Trimester (weeks 9-12): 0.180-2.990 mIU/L Second Trimester: 0.110-3.980 mIU/L Third Trimester: 0.480-4.710 mIU/L Sung Cordero et al. A Practical Approach for the Verifications and Determination of Site- and Trimester-Specific Reference Intervals for Thyroid Function tests in . Thyroid, 2019:29:3:412-420. Feng E, et al. 2017 Guidelines of the [place] Thyroid Association for the Diagnosis and Management of Thyroid Disease during and the . Thyroid, 2017:27: (more content not included)...[facility]05-30-[facility] History of Present illness Narrative* Ruthie Luna MD - 03/10/2025 3:04 PM EDT [facility] Follow up note CONSULTING PROVIDER: Reagan Campos APRN. UNDERGROUND UTILITY LOCATOR (OBGYN) My final recommendations will be communicated back to the requesting provider by way of shared Medical record or a letter via [place] mail Subjective: Jackson Ny is a 24 year old female here to establish care for evaluation of hypothyroidism. Initial visit on 11/22/24 MARY ANNE 12/30/24 As per prior documentation, She is 7 months now, post her first . Post , she had PPH, and has not stopped for 4 months so thyroid labs were checked last month. This is the first time ever thyroid function was ever checked She stopped breast feeding few months ago, as she had to use antibiotics for STD Interval history: 03/10/25 She reports improvement in fatigue/tiredness Menstrual irregularities: has frequent or excess bleeding since delivery- but has seen OBGYN and itwasenthil indicated that nexplanon might be contributing to irregular cycles, recommendation was to remove it, which patient is considering ash as she is not sexually active now and is not planning on use of any alternative contraception either post removal Family history: no autoimmune or thyroid issues REVIEW OF SYSTEMS: 10 point ROS was reviewed and negative unless indicated in the HPI ALLERGIES: ALLERGIES Allergen Reactions Amoxicillin Swelling Lavender (Lavandula* Rash MEDICATIONS: Current Outpatient Medications on File Prior to Visit Medication Sig Levonorgestrel-Ethinyl Estrad (AVIANE) 0.1mg - 20mcg per tablet Take 1 tablet by mouth once daily. etonogestrel (NEXPLANON) 68 mg impl subdermal implant 68 mg by SUBDERMAL route one time only. fluticasone (FLONASE) 50 mcg/actuation nasal spray Use 2 Sprays in each nostril once daily. Rinse mouth after use. (Patient not taking: Reported on 11/22/2024) No current facility-administered medications on file prior to visit. PAST MEDICAL HISTORY: PAST MEDICAL HISTORY Diagnosis Date Abnormal Pap smear of cervix 07/2019 LSIL Bacterial vaginosis Chlamydia infection 07/2019 Exercise-induced asthma (HCC) Generalized anxiety disorder Herpes simplex virus (HSV) infection Herpes, genital 2024 Infectious mononucleosis 01/2017 Trichimoniasis PAST SURGICAL HISTORY: PAST SURGICAL HISTORY Procedure Laterality Date NONE FAMILY HISTORY: FAMILY HISTORY Problem Relation Age of Onset No Known Problems Father No Known Problems Sister No Known Problems Sister No Known Problems Brother No Known Problems Brother No Known Problems Brother No Known Problems Brother No Known Problems Brother No Known Problems Brother No Known Problems Brother Stroke Maternal Grandfather other (Asthma) Other Grandparent SOCIAL HISTORY: Social History Tobacco Use Smoking status: Former Current packs/day: 0.25 Average packs/day: 0.3 packs/day for 0.5 years (0.1 ttl pk-yrs) Types: Cigarettes Smokeless tobacco: Never Vaping Use Vaping status: current everyday user Substances: Nicotine, Flavoring Devices: Disposable Substance Use Topics Alcohol use: No Drug use: Not Currently Frequency: 7.0 times per week Types: Marijuana PHYSICAL EXAM: BP 110/70 (BP Site: Right Arm, BP Position: Sitting, BP Cuff Size: Regular Adult) Pulse 95 Temp37 C (98.6 F) (Temporal Artery) Ht 167.6 cm (5' 6") Wt 86.9 kg (191 lb 9.6 oz) LMP 02/24/2025(Approximate) SpO2 98% BMI 30.93 kg/m Unchanged from prior visit one month ago General: Alert and oriented x3, no acute distress Eyes: Anicteric sclera. Extraocular movements are intact. Neck supple, no cervical lymphadenopathy Thyroid: slight enlargement of thyroid in size, normal texture, no palpable nodules Lungs: Breathing unlabored on room air Heart regular rate and rhythm Musculoskeletal: Muscular strength intact, No joint swelling, deformity, or tenderness Neuro: Gait normal. No focal findings Abdomen:Normal abdominal sounds, non tender to palpation, no tremors of outstretched arms Extremities: without edema, no deformities Skin: no rashes/ erythema LABS: TSH Date Value Ref Range Status 12/30/2024 2.720 0.270 - 4.200 mIU/L Final Comment: If the patient is , TSH reference range varies by gestational period: First Trimester (weeks 9-12): 0.180-2.990 mIU/L Second Trimester: 0.110-3.980 mIU/L Third Trimester: 0.480-4.710 mIU/L Sung Cordero, et al. A Practical Approach for the Verifications and Determination of Site- and Trimester-Specific Reference Intervals for Thyroid Function tests in . Thyroid, 2019:29:3:412-420.Feng Velasco, et al. 2017 Guidelines of the [place] Thyroid Association for the Diagnosis and Management of Thyroid Disease during and the . Thyroid, 2017:27:3:315-389. Free T4 Date Value Ref Range Status 12/30/2024 1.1 0.9 - 1.7 ng/dL Final Latest Ref Rng 10/25/2024 10/31/2024 TSH 0.270 - 4.200 mIU/L 23.060 (H) Free T4 0.9 - 1.7 ng/dL 0.5 (L) THYROID PEROXIDASE ANTIBODY <5.6 IU/mL 4.2 Latest Ref Rng 12/30/2024 TSH 0.270 - 4.200 mIU/L 2.720 Free T4 0.9 - 1.7 ng/dL 1.1 THYROID PEROXIDASE ANTIBODY <5.6 IU/mL Free T3 2.3 - 4.1 pg/mL 3.1 Legend: (H) High (L) Low ASSESSMENT/PLAN: Overt Acquired hypothyroidism: Currently on Levothyroxine 75 mcg daily in 11/2023 Recent thyroid labs normal. She is agreeable to continuing same formulation, dose Declined refills today- she will reach out if running out of meds Repeat labs in 6 months Follow up in 6 months with labs Medical Decision Making: Problems: Moderate: 1+ chronic illnesses with change Data: Unique test result(s) reviewed: 3+ Unique test(s) ordered: 2 Medical Decision Making Level: 4 - Moderate Ruthie Luna MD Endocrinology Associate Staff [facility] Endocrinology and Metabolism [place] [phone] documented [facility] Instructions* Patient Instructions* Binta Carcamo APRN.CNM - 02/22/2025 1:57 PM EDT Boric acid suppositories Ph essentials documented in [facility] encounter[facility]05-[facility]-2025 NoteHNO ID: [id number] Author: BINTA CARCAMO APRN.CNM Service: ? Author Type: Media Services Coordinator Type: Progress Notes Filed: 02/22/2025 14:13 Note Text: Obstetrics and Gynecology [place] EXAMINATION SUPERVISOR Visit Subjective Recording using Body Central software for draft documentation of the visit was discussed with the patient/authorized primary care sales representative; all questions welcomed and answered. Patient/authorized primary care sales representative agreed to proceed CHIEF COMPLAINT: Follow up HPI: The patient is a 24-year-old female presenting for a follow-up regarding bleeding and irregular menses. The patient reports a history of frequent vaginal bleeding following the insertion of Nexplanon on 05/08/2024, immediately after the of her son on 05/07/2024. She experienced continuous bleeding for approximately 3 weeks, requiring frequent use of pads and tampons. In October, she was evaluated and started on a control pill, which she took for about a month but discontinued after initiating levothyroxine prescribed by endocrinology in November due to elevated thyroid levels. Since starting levothyroxine, the patient notes improvement in bleeding but describes her periods as irregular, with varying intervals between cycles. She continues to have the Nexplanon implant in place and denies major abdominal pain, chest pain, cephalalgia, visual disturbances, or severe leg pain. Additionally, she reports experiencing intermittent pruritus and discomfort in the external genital area, which began a few weeks ago. She denies any sexual activity, new partners, or concerns about sexually transmitted infections. HISTORY: OB History Gravida1 Para1 Term1 Preterm0 AB0 Living1 SAB0 IAB0 Ectopic0 Multiple0 Live Births1 Guest House Manager History LMP: 02/06/2025 (Approximate), Implant Age at Menarche: Age at First : Age at Menopause: Guest House Manager History Comments: Sexual Activity: Yes; Male Contraception: Implant PAST MEDICAL HISTORY Diagnosis Date Abnormal Pap smear of cervix 07/2019 LSIL Bacterial vaginosis Chlamydia infection 07/2019 Exercise-induced asthma (HCC) Generalized anxiety disorder Herpes simplex virus (HSV) infection Herpes, genital 2024 Infectious mononucleosis 01/2017 Trichimoniasis PAST SURGICAL HISTORY Procedure Laterality Date NONE FAMILY HISTORY Problem Relation Age of Onset No Known Problems Father No Known Problems Sister No Known Problems Sister No Known Problems Brother No Known Problems Brother No Known Problems Brother No Known Problems Brother No Known Problems Brother No Known Problems Brother No Known Problems Brother Stroke Maternal Grandfather other (Asthma) Other Grandparent Social History Tobacco Use Smoking status: Former Current packs/day: 0.25 Average packs/day: 0.3 packs/day for 0.5 years (0.1 ttl pk-yrs) Types: Cigarettes Smokeless tobacco: Never Vaping Use Vaping status: current everyday user Substances: Nicotine, Flavoring Devices: Disposable Substance Use Topics Alcohol use: No Drug use: Not Currently Frequency: 7.0 times per week Types: Marijuana Current Outpatient Medications Medication Sig prazosin (MINIPRESS) 1 mg cap Take 1 mg by mouth two times a day. QUEtiapine (SEROQUEL) 50 mg tablet Take 50 mg by mouth daily at bedtime. sertraline (ZOLOFT) 50 mg tablet Take 50 mg by mouth once daily. levothyroxine (SYNTHROID) 75 mcg tablet Take 1 tablet by mouth once daily. etonogestrel (NEXPLANON) 68 mg impl subdermal implant 68 mg by SUBDERMAL route one time only. valACYclovir (VALTREX) 1 gram tablet Take 1 tablet by mouth once daily. No current facility-administered medications for this visit. ALLERGIES Allergen Reactions Amoxicillin Swelling Lavender (Lavandula* Rash REVIEW OF SYSTEMS: Head: (-) headaches Eyes: (-) eye problems Cardiovascular: (-) chest pain Gastrointestinal: (-) abdominal pain Genitourinary: (+) irregular menses, (+) vaginal itching Musculoskeletal: (-) severe leg pain Objective SENSITIVE EXAM: Sensitive exam not performed. PHYSICAL EXAM: BP 118/60 Wt 188 lb 3.2 oz (85.4kg) LMP 02/06/2025 General: Well-appearing, no acute distress. Assessment AND Plan ASSESSMENT AND PLAN: 1. Hypothyroidism, unspecified type (E03.9) Diagnosed in November with elevated thyroid levels. Special Procedure Tech initiated levothyroxine therapy. Continue levothyroxine as prescribed by printer assistant 2. Vulvar pruritus (L29.2) Intermittent pruritus, no current sexual activity or new partners. Recent evaluation for yeast infection and BV was negative. - Recommended boric acid suppositories or wash from [employer]. - Advised daily consumption of [place] yogurt with live active cultures. - Monitor symptoms; if no improvement, further testing may be necessary. 3. Presence of subdermal contraceptive implant (Z97.5) Nexplanon implant in place since May 08, 2024. Initial frequent vaginal (more content not included)...[facility] History of Present illness Narrative* Binta Carcamo APRN.NOE - 02/22/2025 1:35 PM EDT Images from the original note were not included. Obstetrics and Gynecology [place] EXAMINATION SUPERVISOR Visit Subjective Recording using ambient Buzzient software for draft documentation of the visit was discussed with the patient/authorized primary care sales representative; all questions welcomed and answered. Patient/authorized primary care sales representative agreed to proceed CHIEF COMPLAINT: Follow up HPI: The patient is a 24-year-old female presenting for a follow-up regarding bleeding and irregular menses. The patient reports a history of frequent vaginal bleeding following the insertion of Nexplanon on 05/08/2024, immediately after the of her son on 05/07/2024. She experienced continuous bleeding for approximately 3 weeks, requiring frequent use of pads and tampons. In October, she was evaluated and started on a control pill, which she took for about a month butdiscontinued after initiating levothyroxine prescribed by endocrinology in November due to elevatedthyroid levels. Since starting levothyroxine, the patient notes improvement in bleeding but describes her periods as irregular, with varying intervals between cycles. She continues to have the Nexplanon implant in place and denies major abdominal pain, chest pain, cephalalgia, visual disturbances, or severe leg pain. Additionally, she reports experiencing intermittent pruritus and discomfort in the external genitalarea, which began a few weeks ago. She denies any sexual activity, new partners, or concerns about sexually transmitted infections. HISTORY: OB History Gravida1 Para1 Term1 Preterm0 AB0 Living1 SAB0 IAB0 Ectopic0 Multiple0 Live Births1 Guest House Manager History LMP: 02/06/2025 (Approximate), Implant Age at Menarche: Age at First : Age at Menopause: Guest House Manager History Comments: Sexual Activity: Yes; Male Contraception: Implant PAST MEDICAL HISTORY Diagnosis Date Abnormal Pap smear of cervix 07/2019 LSIL Bacterial vaginosis Chlamydia infection 07/2019 Exercise-induced asthma (HCC) Generalized anxiety disorder Herpes simplex virus (HSV) infection Herpes, genital 2024 Infectious mononucleosis 01/2017 Trichimoniasis PAST SURGICAL HISTORY Procedure Laterality Date NONE FAMILY HISTORY Problem Relation Age of Onset No Known Problems Father No Known Problems Sister No Known Problems Sister No Known Problems Brother No Known Problems Brother No Known Problems Brother No Known Problems Brother No Known Problems Brother No Known Problems Brother No Known Problems Brother Stroke Maternal Grandfather other (Asthma) Other Grandparent Social History Tobacco Use Smoking status: Former Current packs/day: 0.25 Average packs/day: 0.3 packs/day for 0.5 years (0.1 ttl pk-yrs) Types: Cigarettes Smokeless tobacco: Never Vaping Use Vaping status: current everyday user Substances: Nicotine, Flavoring Devices: Disposable Substance Use Topics Alcohol use: No Drug use: Not Currently Frequency: 7.0 times per week Types: Marijuana Current Outpatient Medications Medication Sig prazosin (MINIPRESS) 1 mg cap Take 1 mg by mouth two times a day. QUEtiapine (SEROQUEL) 50 mg tablet Take 50 mg by mouth daily at bedtime. sertraline (ZOLOFT) 50 mg tablet Take 50 mg by mouth once daily. levothyroxine (SYNTHROID) 75 mcg tablet Take 1 tablet by mouth once daily. etonogestrel (NEXPLANON) 68 mg impl subdermal implant 68 mg by SUBDERMAL route one time only. valACYclovir (VALTREX) 1 gram tablet Take 1 tablet by mouth once daily. No current facility-administered medications for this visit. ALLERGIES Allergen Reactions Amoxicillin Swelling Lavender (Lavandula* Rash REVIEW OF SYSTEMS: Head: (-) headaches Eyes: (-) eye problems Cardiovascular: (-) chest pain Gastrointestinal: (-) abdominal pain Genitourinary: (+) irregular menses, (+) vaginal itching Musculoskeletal: (-) severe leg pain Objective SENSITIVE EXAM: Sensitive exam not performed. PHYSICAL EXAM: BP 118/60 Wt 188 lb 3.2 oz (85.4kg) LMP 02/06/2025 General: Well-appearing, no acute distress. Assessment & Plan ASSESSMENT AND PLAN: 1. Hypothyroidism, unspecified type (E03.9) Diagnosed in November with elevated thyroid levels. Special Procedure Tech initiated levothyroxine therapy. Continue levothyroxine as prescribed by printer assistant 2. Vulvar pruritus (L29.2) Intermittent pruritus, no current sexual activity or new partners. Recent evaluation for yeast infection and BV was negative. - Recommended boric acid suppositories or wash from [employer]. - Advised daily consumption of [place] yogurt with live active cultures. - Monitor symptoms; if no improvement, further testing may be necessary. 3. Presence of subdermal contraceptive implant (Z97.5) Nexplanon implant in place since May 08, 2024. Initial frequent vaginal bleeding post-implantationhas improved. Current menstrual cycles are irregular but within normal parameters for Nexplanon use. Continue monitoring menstrual patterns. Educated on the normalcy of irregular bleeding with Nexplanon. Binta Carcamo APRN.CNM [facility] Tele[facility] encounter Note * Telephone Encounter - Krystin Rothman RN - 02/16/2025 9:11 AM EDT Patient phones requesting refills as follows: Patient also asking to switch pharmacy to [facility] in [place]. Requested Prescriptions Pending Prescriptions Disp Refills levothyroxine (SYNTHROID) 75 mcg tablet [Pharmacy Med Name: levothyroxine 75 mcg tablet] 90 tablet 0 Sig: Take 1 tablet by mouth once daily. Please review and advise. Krystin Rothman RN [facility]05-08-2025 Miscellaneous Notes* Telephone Encounter - Krystin Rothman RN - 02/16/2025 9:11 AM EDT Patient phones requesting refills as follows: Patient also asking to switch pharmacy to [facility] in [place]. Requested Prescriptions Pending Prescriptions Disp Refills levothyroxine (SYNTHROID) 75 mcg tablet [Pharmacy Med Name: levothyroxine 75 mcg tablet] 90 tablet 0 Sig: Take 1 tablet by mouth once daily. Please review and advise. Krystin Rothman RN documented in this encounterBet[facility]04-03-2025 NoteHNO ID: [id number] Author: REAGAN CAMPOS APRN.LORI Service: ? Author Type: Nurse Practitioner Type: Progress Notes Filed: 01/12/2025 08:29 Note Text: Transplant Immunologist offered: Patient declines. Jackson Ny is a 24 year old female who presents for vaginal discharge and itching for 1 week(s). Has also been noticing recurrent genital herpes and would like suppression therapy. Vaginal discharge: scant amount, odorless, and brown. Itching: Yes Dyspareunia: No Fever/chills: No Abdominal pain: No Bladder: Negative for dysuria or frequency Bowel: No blood in stool, pain with BM, tarry stool, persistent diarrhea or constipation Any new sexual partners or concern for STD exposure: No Any history of STDs: chlamydia, GC, HSV, and trichomonas Does your partner have any new complaints: No Are you currently taking any medications to treat vaginitis: No Do you use feminine sprays, douches or deodorants: No Menstrual cycle: every 3 weeks and bleeds for a week. Contraception: Nexplanon Last pap: 2023, normal Past medical, surgical, social history, medications and allergies reviewed and updated. OBJECTIVE: SENSITIVE EXAM: The sensitive examination was discussed with the Patient or Patient's Authorized Surgical Instruments Inspector. As applicable, any other physician, advance practice provider, medical student, or other health professional student that will be observing or involved in the sensitive examination for educational or training purposes was discussed with the Patient or Authorized Surgical Instruments Inspector. The Patient or Authorized Surgical Instruments Inspector has agreed to proceed with the sensitive examination. (Sensitive examination includes inspection and/or palpation of the breasts, pelvis, prostate and anorectal regions). BP 112/60 Wt 183 lb (83.0kg) LMP 12/28/2024 GENERAL: Well developed, well nourished in no apparent distress PELVIC: external genitalia normal, normal Bartholin's glands, urethra, Mccomb's glands, no vulvar lesions, no cervical lesions, good vaginal support, physiologic discharge present, normal appearing perineal body and perianal region BIMANUAL: uterus normal size, shape and consistency, no adnexal masses, and non-tender. RECTOVAGINAL: deferred. ASSESSMENT/PLAN: 1. Vaginal discharge - ICD9: 623.5, ICD10: N89.8 (primary diagnosis) 2. Vaginal itching - ICD9: 698.1, ICD10: N89.8 - Cultures obtained 3. Recurrent genital herpes - ICD9: 054.10, ICD10: A60.00 - Check kidney function - Send suppressive therapy Reagan Campos APRN.UNDERGROUND UTILITY LOCATOR Medical Decision Making: Problems: Low: Acute, uncomplicated illness or injury Data: Unique test(s) ordered: 3+ Risk: Low: Low risk from testing/treatment Moderate: Drug management Medical Decision Making Level: 4 - [facility] History of Present illness Narrative* Reagan Campos APRN.UNDERGROUND UTILITY LOCATOR - 01/12/2025 8:13 AM EDT Transplant Immunologist offered: Patient declines. Jackson Ny is a 24 year old female who presents for vaginal discharge and itching for 1 week(s). Has also been noticing recurrent genital herpes and would like suppression therapy. Vaginal discharge: scant amount, odorless, and brown. Itching: Yes Dyspareunia: No Fever/chills: No Abdominal pain: No Bladder: Negative for dysuria or frequency Bowel: No blood in stool, pain with BM, tarry stool, persistent diarrhea or constipation Any new sexual partners or concern for STD exposure: No Any history of STDs: chlamydia, GC, HSV, and trichomonas Does your partner have any new complaints: No Are you currently taking any medications to treat vaginitis: No Do you use feminine sprays, douches or deodorants: No Menstrual cycle: every 3 weeks and bleeds for a week. Contraception: Nexplanon Last pap: 2023, normal Past medical, surgical, social history, medications and allergies reviewed and updated. OBJECTIVE: SENSITIVE EXAM: The sensitive examination was discussed with the Patient or Patient's Authorized Surgical Instruments Inspector. As applicable, any other physician, advance practice provider, medical student, or other health professional student that will be observing or involved in the sensitive examination for educational or training purposes was discussed with the Patient or Authorized Surgical Instruments Inspector. The Patient or Authorized Surgical Instruments Inspector has agreed to proceed with the sensitive examination. (Sensitive examination includes inspection and/or palpation of the breasts, pelvis, prostate and anorectal regions). BP 112/60 Wt 183 lb (83.0kg) LMP 12/28/2024 GENERAL: Well developed, well nourished in no apparent distress PELVIC: external genitalia normal, normal Bartholin's glands, urethra, Mccomb's glands, no vulvar lesions, no cervical lesions, good vaginal support, physiologic discharge present, normal appearing perineal body and perianal region BIMANUAL: uterus normal size, shape and consistency, no adnexal masses, and non-tender. RECTOVAGINAL: deferred. ASSESSMENT/PLAN: 1. Vaginal discharge - ICD9: 623.5, ICD10: N89.8 (primary diagnosis) 2. Vaginal itching - ICD9: 698.1, ICD10: N89.8 - Cultures obtained 3. Recurrent genital herpes - ICD9: 054.10, ICD10: A60.00 - Check kidney function - Send suppressive therapy Reagan Campos APRN.LORI Medical Decision Making: Problems: Low: Acute, uncomplicated illness or injury Data: Unique test(s) ordered: 3+ Risk: Low: Low risk from testing/treatment Moderate: Drug management Medical Decision Making Level: 4 - Moderate documented in this encounterBet[facility]04-[facility]-2025 Instructions* Patient Instructions* Nohelia Oconnor MA - 01/12/2025 8:13 AM EDT Minimizing irritation of the vulva (area around the vagina) Wear white cotton underwear. Avoid synthetic fabrics and tight clothing. Sleep wearing shorts or pajama bottoms without underwear. Shower as soon as possible after exercise. Avoid clothing detergents and soaps with perfumes or dyes. Use warm (not hot) water to wash the vulva and if you use soap use a product designed for sensitive skin (like Dove or Cetaphil). Do not douche or use creams/powders in the vulvar area unless instructed by your physician. If you must douche, use only plain warm water. Make sure the vulva is dry before dressing by patting dry with a towel. Avoid vigorous rubbing withthe towel. You may want to use the blow dryer (on the cool setting only!) on the vulva. The most important way to let your body heal is by avoiding scratching. Many patients find it difficult to avoid scratching at night when they are most aware of the itchiness. You can try taking Benadryl just before bedtime. Some women find it helpful to wear cotton gloves to bed to avoid scratching at night. documented in this encounterBethesda [facility] Hospital03-21-2025 NoteHNO ID: [id number] Author: RUTHIE LUNA MD Service: ? Author Type: Physician Type: Progress Notes Filed: 12/31/2024 22:40 Note Text: [facility] Follow up note CONSULTING PROVIDER: Reagan Campos APRN. UNDERGROUND UTILITY LOCATOR (OBGYN) My final recommendations will be communicated back to the requesting provider by way of shared Medical record or a letter via [place] mail Subjective: Jackson Ny is a 24 year old female here to establish care for evaluation of hypothyroidism. Initial/last visit on 11/22/24 As per prior documentation, She is 7 months now, post her first . Post , she had PPH, and has not stopped for 4 months so thyroid labs were checked last month. This is the first time ever thyroid function was ever checked She stopped breast feeding few months ago, as she had to use antibiotics for STD Interval history: 12/30/2024 She feels more tired than before starting the medication, does not feel refreshed on waking up She feels very hungry all the time for the last few weeks Periods are painful and heavy On last visit, she denied any changes in energy, weight or appetite Sweating a lot where as she complained of cold sensitivity for few months on last visit Menstrual irregularities: has frequent or excess bleeding since delivery 6 months ago Family history: no autoimmune or thyroid issues REVIEW OF SYSTEMS: 10 point ROS was reviewed and negative unless indicated in the HPI ALLERGIES: ALLERGIES Allergen Reactions Amoxicillin Swelling Lavender (Lavandula* Rash MEDICATIONS: Current Outpatient Medications on File Prior to Visit Medication Sig Levonorgestrel-Ethinyl Estrad (AVIANE) 0.1mg - 20mcg per tablet Take 1 tablet by mouth once daily. etonogestrel (NEXPLANON) 68 mg impl subdermal implant 68 mg by SUBDERMAL route one time only. fluticasone (FLONASE) 50 mcg/actuation nasal spray Use 2 Sprays in each nostril once daily. Rinse mouth after use. (Patient not taking: Reported on 11/22/2024) No current facility-administered medications on file prior to visit. PAST MEDICAL HISTORY: PAST MEDICAL HISTORY Diagnosis Date Abnormal Pap smear of cervix 07/2019 LSIL Bacterial vaginosis Chlamydia infection 07/2019 Exercise-induced asthma Generalized anxiety disorder Herpes simplex virus (HSV) infection Herpes, genital 2024 Infectious mononucleosis 01/2017 Trichimoniasis PAST SURGICAL HISTORY: PAST SURGICAL HISTORY Procedure Laterality Date NONE FAMILY HISTORY: FAMILY HISTORY Problem Relation Age of Onset No Known Problems Father No Known Problems Sister No Known Problems Sister No Known Problems Brother No Known Problems Brother No Known Problems Brother No Known Problems Brother No Known Problems Brother No Known Problems Brother No Known Problems Brother Stroke Maternal Grandfather other (Asthma) Other Grandparent SOCIAL HISTORY: Social History Tobacco Use Smoking status: Former Current packs/day: 0.25 Average packs/day: 0.3 packs/day for 0.5 years (0.1 ttl pk-yrs) Types: Cigarettes Smokeless tobacco: Never Vaping Use Vaping status: current everyday user Substances: Nicotine, Flavoring Devices: Disposable Substance Use Topics Alcohol use: No Drug use: Not Currently Frequency: 7.0 times per week Types: Marijuana PHYSICAL EXAM: BP 118/62 (BP Site: Right Arm, BP Position: Sitting) Pulse 92 Temp 37.1 ?C (98.8 ?F) (Temporal) Wt 82.8 kg (182 lb 9.6 oz) LMP 12/28/2024 (Exact Date) SpO2 96% BMI 29.47 kg/m? Unchanged from prior visit one month ago General: Alert and oriented x3, no acute distress Eyes: Anicteric sclera. Extraocular movements are intact. Neck supple, no cervical lymphadenopathy Thyroid: slight enlargement of thyroid in size, normal texture, no palpable nodules Lungs: Breathing unlabored on room air Heart regular rate and rhythm Musculoskeletal: Muscular strength intact, No joint swelling, deformity, or tenderness Neuro: Gait normal. No focal findings Abdomen:Normal abdominal sounds, non tender to palpation, no tremors of outstretched arms Extremities: without edema, no deformities Skin: no rashes/ erythema LABS: TSH Date Value Ref Range Status 10/25/2024 23.060 (H) 0.270 - 4.200 mIU/L Final Comment: If the patient is , TSH reference range varies by gestational period: First Trimester (weeks 9-12): 0.180-2.990 mIU/L Second Trimester: 0.110-3.980 mIU/L Third Trimester: 0.480-4.710 mIU/L Sung L, et al. A Practical Approach for the Verifications and Determination of Site- and Trimester-Specific Reference Intervals for Thyroid Function tests in . Thyroid, 2019:29:3:412-420. Feng Velasco, et al. 2017 Guidelines of the [place] Thy[employer] Association for the Diagnosis and Management of Thyroid Disease during and the . Thyroid, 2017:27:3:315-389. Free T4 Date Value (more content not included)...[facility] NoteHNO ID: [id number] Author: FELI WINSTON APRN.UNDERGROUND UTILITY LOCATOR Service: ? Author Type: Nurse Practitioner Type: Progress Notes Filed: 12/04/2024 14:34 Note Text: This note was created using Sonianriter. Subjective Jackson Ny is a 24 year old female. HPI Patient presents today complaining of about 3 weeks of symptoms consistent with her previous vaginal yeast infections. She also complains of about 2 days of runny nose cough congestion and ear pain. She otherwise denies any nausea vomiting or fever. Review of Systems As above Objective BP 116/82 Pulse 108 Temp 37.5 ?C (99.5 ?F) Resp 20 Wt 81.8 kg (180 lb 5.4 oz) LMP 10/23/2024 (Exact Date) SpO2 98% BMI 29.11 kg/m? Physical Exam Vitals and nursing note reviewed. Constitutional: General: She is not in acute distress. Appearance: Normal appearance. She is not ill-appearing. HENT: Head: Normocephalic. Mouth/Throat: Mouth: Mucous membranes are moist. Pharynx: No oropharyngeal exudate or posterior oropharyngeal erythema. Eyes: Conjunctiva/sclera: Conjunctivae normal. Cardiovascular: Rate and Rhythm: Normal rate and regular rhythm. Pulmonary: Effort: Pulmonary effort is normal. Breath sounds: Normal breath sounds. Musculoskeletal: General: Normal range of motion. Cervical back: Normal range of motion. Skin: General: Skin is warm and dry. Neurological: General: No focal deficit present. Mental Status: She is alert. Psychiatric: Mood and Affect: Mood normal. Behavior: Behavior normal. Assessment and Plan ASSESSMENT/PLAN: 1. Vaginal yeast infection - ICD9: 112.1, ICD10: B37.31 (primary diagnosis) As patient notes symptoms consistent with her previous vaginal yeast infection she was given a prescription for fluconazole. - FLUCONAZOLE 150 MG TABLET 2. Viral illness - ICD9: 079.99, ICD10: B34.9 -Discussed possible viral testing which patient declines. She will use [id number] cough and cold treatments as necessary. Patient given a note for work. Feli Winston [facility]N.[facility] History of Present illness Narrative* Feli Winston APRN.LORI - 12/04/2024 2:32 PM EST This note was created using [employer]ian[employer]. Subjective Jackson Ny is a 24 year old female. HPI Patient presents today complaining of about 3 weeks of symptoms consistent with her previous vaginal yeast infections. She also complains of about 2 days of runny nose cough congestion and ear pain. She otherwise denies any nausea vomiting or fever. Review of Systems As above Objective BP 116/82 Pulse 108 Temp 37.5 C (99.5 F) Resp 20 Wt 81.8 kg (180 lb 5.4 oz) LMP 10/23/2024 (Exact Date) SpO2 98% BMI 29.11 kg/m Physical Exam Vitals and nursing note reviewed. Constitutional: General: She is not in acute distress. Appearance: Normal appearance. She is not ill-appearing. HENT: Head: Normocephalic. Mouth/Throat: Mouth: Mucous membranes are moist. Pharynx: No oropharyngeal exudate or posterior oropharyngeal erythema. Eyes: Conjunctiva/sclera: Conjunctivae normal. Cardiovascular: Rate and Rhythm: Normal rate and regular rhythm. Pulmonary: Effort: Pulmonary effort is normal. Breath sounds: Normal breath sounds. Musculoskeletal: General: Normal range of motion. Cervical back: Normal range of motion. Skin: General: Skin is warm and dry. Neurological: General: No focal deficit present. Mental Status: She is alert. Psychiatric: Mood and Affect: Mood normal. Behavior: Behavior normal. Assessment and Plan ASSESSMENT/PLAN: 1. Vaginal yeast infection - ICD9: 112.1, ICD10: B37.31 (primary diagnosis) As patient notes symptoms consistent with her previous vaginal yeast infection she was given a prescription for fluconazole. - FLUCONAZOLE 150 MG TABLET 2. Viral illness - ICD9: 079.99, ICD10: B34.9 -Discussed possible viral testing which patient declines. She will use wmlo-fja-bshortr cough and cold treatments as necessary. Patient given a note for work. Feli Winston APRN.LORI documented in this encounterBet[facility]-11-[facility]25 Instructions* Patient Instructions* Ruthie Luna MD - 11/22/2024 8:40 AM EST Take levothyroxine on empty stomach (first thing in the morning), give atleast 45 mins to 1 hr before you take any medications, food or fluids other than water. If taking calcium or iron or multivitamin, please wait atleast 4 hours after taking your thyroid medication. documented in this encounterBethesda [facility] Hospital02-11-2025 NoteHNO ID: [id number] Author: RUTHIE LUNA MD Service: ? Author Type: Physician Type: Progress Notes Filed: 11/24/2024 22:00 Note Text: [facility] Initial Clinic Visit Note CONSULTING PROVIDER: Reagan Campos APRN. LORI (OBGYN) My final recommendations will be communicated back to the requesting provider by way of shared Medical record or a letter via [place] mail Subjective: Jackson Ny is a 24 year old female here to establish care for evaluation of hypothyroidism. She is accompanied by her grand mother today. She is 6 months now, this was her first . Post , she had PPH, and has not stopped for 4 months so thyroid labs were checked last month. This is the first time ever thyroid function was ever checked She stopped breast feeding few months ago, as she had to use antibiotics for STD Current treatment: none Prior treatment: none General symptoms: Fatigue: yes Weight change: no Appetite change: no Menstrual irregularities: has frequent or excess bleeding since delivery 6 months ago Change in bowel habits: no Temperature intolerance: cold sensitivity for the past few months Family history: no autoimmune or thyroid issues REVIEW OF SYSTEMS: GENERAL:No weight loss, malaise or fevers HEENT:Negative for frequent or significant headaches, No changes in hearing or vision, no nose bleeds or other nasal problems NECK:Negative for lumps, goiter, pain and significant neck swelling RESPIRATORY: Negative for cough, hemoptysis, wheezing or shortness of breath CARDIOVASCULAR: Negative for chest pain, leg swelling or palpitations GASTROINTESTINAL: No nausea, vomiting, or persistent diarrhea GENITOURINARY: no dysuria, Polyuria, no changes in urinary frequency MUSCULOSKELETAL:no muscle aches, arthralgia NEUROLOGIC: no numbness, tingling, no Paresthesias, no headaches SKIN:Negative for lesions, rash, and itching PSYCHIATRIC: Negative for sleep disturbance, mood disorder and recent psychosocial stressors. HEMATOLOGIC/LYMPHATIC/IMMUNOLOGIC:Negative for prolonged bleeding, bruising easily ENDOCRINE: Negative for cold or heat intolerance or goiter ALLERGIES: ALLERGIES Allergen Reactions Amoxicillin Swelling Lavender (Lavandula* Rash MEDICATIONS: Current Outpatient Medications on File Prior to Visit Medication Sig Levonorgestrel-Ethinyl Estrad (AVIANE) 0.1mg - 20mcg per tablet Take 1 tablet by mouth once daily. etonogestrel (NEXPLANON) 68 mg impl subdermal implant 68 mg by SUBDERMAL route one time only. fluticasone (FLONASE) 50 mcg/actuation nasal spray Use 2 Sprays in each nostril once daily. Rinse mouth after use. (Patient not taking: Reported on 11/22/2024) No current facility-administered medications on file prior to visit. PAST MEDICAL HISTORY: PAST MEDICAL HISTORY Diagnosis Date Abnormal Pap smear of cervix 07/2019 LSIL Bacterial vaginosis Chlamydia infection 07/2019 Exercise-induced asthma Generalized anxiety disorder Herpes simplex virus (HSV) infection Herpes, genital 2024 Infectious mononucleosis 01/2017 Trichimoniasis PAST SURGICAL HISTORY: PAST SURGICAL HISTORY Procedure Laterality Date NONE FAMILY HISTORY: FAMILY HISTORY Problem Relation Age of Onset No Known Problems Father No Known Problems Sister No Known Problems Sister No Known Problems Brother No Known Problems Brother No Known Problems Brother No Known Problems Brother No Known Problems Brother No Known Problems Brother No Known Problems Brother Stroke Maternal Grandfather other (Asthma) Other Grandparent SOCIAL HISTORY: Social History Tobacco Use Smoking status: Former Current packs/day: 0.25 Average packs/day: 0.3 packs/day for 0.5 years (0.1 ttl pk-yrs) Types: Cigarettes Smokeless tobacco: Never Vaping Use Vaping status: Former Substance Use Topics Alcohol use: No Drug use: Not Currently Frequency: 7.0 times per week Types: Marijuana PHYSICAL EXAM: BP 118/75 (BP Site: Right Arm, BP Position: Sitting, BP Cuff Size: Regular Adult) Pulse 88 Temp 36.7 ?C (98 ?F) (Temporal Artery) Wt 80.6 kg (177 lb 12.8 oz) LMP 10/23/2024 (Exact Date) SpO2 96% No BMI 28.70 kg/m? Last 3 Encounter Wt Readings: Date: Wt: 11/22/2024 80.6 kg (177 lb 12.8 oz) 11/18/2024 81.4 kg (179 lb 7.3 oz) 10/30/2024 79 kg (174 lb 2.6 oz) General: Alert and oriented x3, no acute distress Eyes: Anicteric sclera. Extraocular movements are intact. Neck supple, no cervical lymphadenopathy Thyroid: slight enlargement of thyroid in size, normal texture, no palpable nodules Lungs: Breathing unlabored on room air Heart regular rate and rhythm Musculoskeletal: Muscular strength intact, No joint swelling, deformity, or tenderness Neuro: Gait normal. No focal findings Abdomen:Normal abdominal sounds, non tender to palpation, no tremors of outstretched arms (more content not included)...[facility]02[facility] History of Present illness Narrative* Ruthie Luna MD - 11/22/2024 8:29 AM EST [facility] Initial Clinic Visit Note CONSULTING PROVIDER: Reagan Campos APRN. UNDERGROUND UTILITY LOCATOR (OBGYN) My final recommendations will be communicated back to the requesting provider by way of shared Medical record or a letter via [place] mail Subjective: Jackson Ny is a 24 year old female here to establish care for evaluation of hypothyroidism. She is accompanied by her grand mother today. She is 6 months now, this was her first . Post , she had PPH, and has not stopped for 4 months so thyroid labs were checked last month. This is the first time ever thyroid function was ever checked She stopped breast feeding few months ago, as she had to use antibiotics for STD Current treatment: none Prior treatment: none General symptoms: Fatigue: yes Weight change: no Appetite change: no Menstrual irregularities: has frequent or excess bleeding since delivery 6 months ago Change in bowel habits: no Temperature intolerance: cold sensitivity for the past few months Family history: no autoimmune or thyroid issues REVIEW OF SYSTEMS: GENERAL:No weight loss, malaise or fevers HEENT:Negative for frequent or significant headaches, No changes in hearing or vision, no nose bleeds or other nasal problems NECK:Negative for lumps, goiter, pain and significant neck swelling RESPIRATORY: Negative for cough, hemoptysis, wheezing or shortness of breath CARDIOVASCULAR: Negative for chest pain, leg swelling or palpitations GASTROINTESTINAL: No nausea, vomiting, or persistent diarrhea GENITOURINARY: no dysuria, Polyuria, no changes in urinary frequency MUSCULOSKELETAL:no muscle aches, arthralgia NEUROLOGIC: no numbness, tingling, no Paresthesias, no headaches SKIN:Negative for lesions, rash, and itching PSYCHIATRIC: Negative for sleep disturbance, mood disorder and recent psychosocial stressors. HEMATOLOGIC/LYMPHATIC/IMMUNOLOGIC:Negative for prolonged bleeding, bruising easily ENDOCRINE: Negative for cold or heat intolerance or goiter ALLERGIES: ALLERGIES Allergen Reactions Amoxicillin Swelling Lavender (Lavandula* Rash MEDICATIONS: Current Outpatient Medications on File Prior to Visit Medication Sig Levonorgestrel-Ethinyl Estrad (AVIANE) 0.1mg - 20mcg per tablet Take 1 tablet by mouth once daily. etonogestrel (NEXPLANON) 68 mg impl subdermal implant 68 mg by SUBDERMAL route one time only. fluticasone (FLONASE) 50 mcg/actuation nasal spray Use 2 Sprays in each nostril once daily. Rinse mouth after use. (Patient not taking: Reported on 11/22/2024) No current facility-administered medications on file prior to visit. PAST MEDICAL HISTORY: PAST MEDICAL HISTORY Diagnosis Date Abnormal Pap smear of cervix 07/2019 LSIL Bacterial vaginosis Chlamydia infection 07/2019 Exercise-induced asthma Generalized anxiety disorder Herpes simplex virus (HSV) infection Herpes, genital 2024 Infectious mononucleosis 01/2017 Trichimoniasis PAST SURGICAL HISTORY: PAST SURGICAL HISTORY Procedure Laterality Date NONE FAMILY HISTORY: FAMILY HISTORY Problem Relation Age of Onset No Known Problems Father No Known Problems Sister No Known Problems Sister No Known Problems Brother No Known Problems Brother No Known Problems Brother No Known Problems Brother No Known Problems Brother No Known Problems Brother No Known Problems Brother Stroke Maternal Grandfather other (Asthma) Other Grandparent SOCIAL HISTORY: Social History Tobacco Use Smoking status: Former Current packs/day: 0.25 Average packs/day: 0.3 packs/day for 0.5 years (0.1 ttl pk-yrs) Types: Cigarettes Smokeless tobacco: Never Vaping Use Vaping status: Former Substance Use Topics Alcohol use: No Drug use: Not Currently Frequency: 7.0 times per week Types: Marijuana PHYSICAL EXAM: BP 118/75 (BP Site: Right Arm, BP Position: Sitting, BP Cuff Size: Regular Adult) Pulse 88 Temp36.7 C (98 F) (Temporal Artery) Wt 80.6 kg (177 lb 12.8 oz) LMP 10/23/2024 (Exact Date) SpO2 96% No BMI 28.70 kg/m Last 3 Encounter Wt Readings: Date: Wt: 11/22/2024 80.6 kg (177 lb 12.8 oz) 11/18/2024 81.4 kg (179 lb 7.3 oz) 10/30/2024 79 kg (174 lb 2.6 oz) General: Alert and oriented x3, no acute distress Eyes: Anicteric sclera. Extraocular movements are intact. Neck supple, no cervical lymphadenopathy Thyroid: slight enlargement of thyroid in size, normal texture, no palpable nodules Lungs: Breathing unlabored on room air Heart regular rate and rhythm Musculoskeletal: Muscular strength intact, No joint swelling, deformity, or tenderness Neuro: Gait normal. No focal findings Abdomen:Normal abdominal sounds, non tender to palpation, no tremors of outstretched arms Extremities: without edema, no deformities Skin: no rashes/ erythema LABS: TSH Date Value Ref Range Status 10/25/2024 23.060 (H) 0.270 - 4.200 mIU/L Final Comment: If the patient is , TSH reference range varies by gestational period: First Trimester (weeks 9-12): 0.180-2.990 mIU/L Second Trimester: 0.110-3.980 mIU/L Third Trimester: 0.480-4.710 mIU/L Sung Cordero et al. A Practical Approach for the Verifications and Determination of Site- and Trimester-Specific Reference Intervals for Thyroid Function tests in . Thyroid, 2019:29:3:412-420.Feng Velasco et al. 2017 Guidelines of the [place] [employer] for the Diagnosis and Management of Thyroid Disease during and the . Thyroid, 2017:27:3:315-389. Free T4 Date Value Ref Range Status 10/25/2024 0.5 (L) 0.9 - 1.7 ng/dL Final Latest Ref Rng 10/25/2024 10/31/2024 TSH 0.270 - 4.200 mIU/L 23.060 (H) Free T4 0.9 - 1.7 ng/dL 0.5 (L) THYROID PEROXIDASE ANTIBODY <5.6 IU/mL 4.2 Legend: (H) High (L) Low ASSESSMENT/PLAN: Overt Acquired hypothyroidism: With menstrual irregularities/secondary amenorrhea Discussed starting on levothyroxine 75 mcg daily Appropriate method of taking medication reviewed Repeat labs in 2 months If cycles are not improved after thyroid labs normalize, will do work up for secondary amenorrhea Follow up in 2 months with labs Medical Decision Making: Problems: Moderate: New problem with uncertain prognosis Data: Unique test result(s) reviewed: 3+ Unique test(s) ordered: 2 Independent interpretation of test from other physician/QHCP Risk: Moderate: Drug management Medical Decision Making Level: 4 - Moderate Ruthie Luna MD Endocrinology Associate Staff [facility] Endocrinology and Metabolism [place] [phone] documented in this encounterBethesda [facility] Hospital02-07-2025 NoteHNO ID: [id number] Author: TYLER SALMON APRN.UNDERGROUND UTILITY LOCATOR Service: ? Author Type: Nurse Practitioner Type: Progress Notes Filed: 11/18/2024 17:15 Note Text: Subjective HPI HPI Jackson Ny is a 24 year old female who presents today for CC of diarrhea last night/improving. Needs work note. Left ear pressure, had infection 1 week ago, atb helped pain but still having issues. Smoker. Denies possibility of being . .Patient presents with: Diarrhea: X last night, symptoms now cleared PAST MEDICAL HISTORY Diagnosis Date Abnormal Pap smear of cervix 07/2019 LSIL Bacterial vaginosis Chlamydia infection 07/2019 Exercise-induced asthma Generalized anxiety disorder Herpes simplex virus (HSV) infection Herpes, genital 2024 Infectious mononucleosis 01/2017 Trichimoniasis PAST SURGICAL HISTORY Procedure Laterality Date NONE ALLERGIES Amoxicillin MEDICATIONS Levonorgestrel-Ethinyl Estrad (AVIANE) 0.1mg - 20mcg per tablet Take 1 tablet by mouth once daily. etonogestrel (NEXPLANON) 68 mg impl subdermal implant 68 mg by SUBDERMAL route one time only. FAMILY HISTORY Problem Relation Age of Onset No Known Problems Father No Known Problems Sister No Known Problems Sister No Known Problems Brother No Known Problems Brother No Known Problems Brother No Known Problems Brother No Known Problems Brother No Known Problems Brother No Known Problems Brother Stroke Maternal Grandfather other (Asthma) Other Grandparent Social History Tobacco Use Smoking status: Former Current packs/day: 0.25 Average packs/day: 0.3 packs/day for 0.5 years (0.1 ttl pk-yrs) Types: Cigarettes Smokeless tobacco: Never Vaping Use Vaping status: Former Substance Use Topics Alcohol use: No Drug use: Not Currently Frequency: 7.0 times per week Types: Marijuana Review of Systems Constitutional: Negative for fever. HENT: Positive for ear pain and hearing loss. Negative for congestion, ear discharge, nosebleeds, sore throat and tinnitus. Respiratory: Negative for cough, shortness of breath and wheezing. Gastrointestinal: Positive for diarrhea. Negative for abdominal pain, constipation, nausea and vomiting. Musculoskeletal: Negative for neck pain. Objective Blood pressure 111/78, pulse 91, temperature 36.7 ?C (98.1 ?F), resp. rate 18, weight 81.4 kg (179 lb 7.3 oz), last menstrual period 10/23/2024, SpO2 99%, not currently . Physical Exam Constitutional: General: She is not in acute distress. Appearance: Normal appearance. She is not toxic-appearing or diaphoretic. HENT: Head: Normocephalic and atraumatic. Right Ear: Hearing, tympanic membrane, ear canal and external ear normal. Left Ear: Hearing, tympanic membrane, ear canal and external ear normal. Nose: Nose normal. Mouth/Throat: Pharynx: Uvula midline. No pharyngeal swelling, oropharyngeal exudate, posterior oropharyngeal erythema or uvula swelling. Eyes: General: Lids are normal. No scleral icterus. Right eye: No discharge. Left eye: No discharge. Conjunctiva/sclera: Conjunctivae normal. Pupils: Pupils are equal, round, and reactive to light. Neck: Trachea: Trachea normal. Cardiovascular: Rate and Rhythm: Normal rate and regular rhythm. Heart sounds: Normal heart sounds. Pulmonary: Effort: Pulmonary effort is normal. Breath sounds: Normal breath sounds. Abdominal: General: Bowel sounds are normal. Palpations: Abdomen is soft. Tenderness: There is no abdominal tenderness. Musculoskeletal: Cervical back: Normal range of motion and neck supple. Lymphadenopathy: Cervical: No cervical adenopathy. Right cervical: No superficial cervical adenopathy. Left cervical: No superficial cervical adenopathy. Skin: General: Skin is warm and dry. Findings: No rash. Neurological: Mental Status: She is alert and oriented to person, place, and time. ASSESSMENT/PLAN: 1. Diarrhea, unspecified type - ICD9: 787.91, ICD10: R19.7 (primary diagnosis) Resolved. Work note provided F/u for new or continued s/s 2. Dysfunction of left eustachian tube - ICD9: 381.81, ICD10: H69.92 -use medication as prescribed -follow up if symptoms persist, worsen, change - FLUTICASONE PROPIONATE 50 MCG/ACTUATION NASAL SPRAY,SUSPENSION Tyler Salmon APRN.[facility]02-07-2025 History of Present illness Narrative* Tyler Salmon APRN.UNDERGROUND UTILITY LOCATOR - 11/18/2024 5:03 PM EST Subjective HPI HPI Jackson Ny is a 24 year old female who presents today for CC of diarrhea last night/improving. Needs work note. Left ear pressure, had infection 1 week ago, atb helped pain but still having issues. Smoker. Denies possibility of being . .Patient presents with: Diarrhea: X last night, symptoms now cleared PAST MEDICAL HISTORY Diagnosis Date Abnormal Pap smear of cervix 07/2019 LSIL Bacterial vaginosis Chlamydia infection 07/2019 Exercise-induced asthma Generalized anxiety disorder Herpes simplex virus (HSV) infection Herpes, genital 2024 Infectious mononucleosis 01/2017 Trichimoniasis PAST SURGICAL HISTORY Procedure Laterality Date NONE ALLERGIES Amoxicillin MEDICATIONS Levonorgestrel-Ethinyl Estrad (AVIANE) 0.1mg - 20mcg per tablet Take 1 tablet by mouth once daily. etonogestrel (NEXPLANON) 68 mg impl subdermal implant 68 mg by SUBDERMAL route one time only. FAMILY HISTORY Problem Relation Age of Onset No Known Problems Father No Known Problems Sister No Known Problems Sister No Known Problems Brother No Known Problems Brother No Known Problems Brother No Known Problems Brother No Known Problems Brother No Known Problems Brother No Known Problems Brother Stroke Maternal Grandfather other (Asthma) Other Grandparent Social History Tobacco Use Smoking status: Former Current packs/day: 0.25 Average packs/day: 0.3 packs/day for 0.5 years (0.1 ttl pk-yrs) Types: Cigarettes Smokeless tobacco: Never Vaping Use Vaping status: Former Substance Use Topics Alcohol use: No Drug use: Not Currently Frequency: 7.0 times per week Types: Marijuana Review of Systems Constitutional: Negative for fever. HENT: Positive for ear pain and hearing loss. Negative for congestion, ear discharge, nosebleeds, sore throat and tinnitus. Respiratory: Negative for cough, shortness of breath and wheezing. Gastrointestinal: Positive for diarrhea. Negative for abdominal pain, constipation, nausea and vomiting. Musculoskeletal: Negative for neck pain. Objective Blood pressure 111/78, pulse 91, temperature 36.7 C (98.1 F), resp. rate 18, weight 81.4 kg (179 lb7.3 oz), last menstrual period 10/23/2024, SpO2 99%, not currently . Physical Exam Constitutional: General: She is not in acute distress. Appearance: Normal appearance. She is not toxic-appearing or diaphoretic. HENT: Head: Normocephalic and atraumatic. Right Ear: Hearing, tympanic membrane, ear canal and external ear normal. Left Ear: Hearing, tympanic membrane, ear canal and external ear normal. Nose: Nose normal. Mouth/Throat: Pharynx: Uvula midline. No pharyngeal swelling, oropharyngeal exudate, posterior oropharyngeal erythema or uvula swelling. Eyes: General: Lids are normal. No scleral icterus. Right eye: No discharge. Left eye: No discharge. Conjunctiva/sclera: Conjunctivae normal. Pupils: Pupils are equal, round, and reactive to light. Neck: Trachea: Trachea normal. Cardiovascular: Rate and Rhythm: Normal rate and regular rhythm. Heart sounds: Normal heart sounds. Pulmonary: Effort: Pulmonary effort is normal. Breath sounds: Normal breath sounds. Abdominal: General: Bowel sounds are normal. Palpations: Abdomen is soft. Tenderness: There is no abdominal tenderness. Musculoskeletal: Cervical back: Normal range of motion and neck supple. Lymphadenopathy: Cervical: No cervical adenopathy. Right cervical: No superficial cervical adenopathy. Left cervical: No superficial cervical adenopathy. Skin: General: Skin is warm and dry. Findings: No rash. Neurological: Mental Status: She is alert and oriented to person, place, and time. ASSESSMENT/PLAN: 1. Diarrhea, unspecified type - ICD9: 787.91, ICD10: R19.7 (primary diagnosis) Resolved. Work note provided F/u for new or continued s/s 2. Dysfunction of left eustachian tube - ICD9: 381.81, ICD10: H69.92 -use medication as prescribed -follow up if symptoms persist, worsen, change - FLUTICASONE PROPIONATE 50 MCG/ACTUATION NASAL SPRAY,SUSPENSION Tyler Salmon APRN.UNDERGROUND UTILITY LOCATOR documented in this encounterBethesda North Hospital01-19-2025 Instructions* Patient Instructions* Binta Hathaway APRN.UNDERGROUND UTILITY LOCATOR - 10/30/2024 10:13 AM EST Steps to Take When Sick with COVID-19 Stay home and away from others (including people you live with who are not sick) if you have COVID-19 symptoms These symptoms can include fever, chills, fatigue, cough, runny nose, and headache, among others. You can go back to your normal activities when, for at least 24 hours, both are true: Your symptoms are getting better overall, and You have not had a fever (and are not using fever-reducing medication). When you go back to your normal activities, take added precaution over the next 5 days, such as taking additional steps for card cleaner air, hygiene, masks, physical distancing, and/or testing when you will be around other people indoors. Keep in mind that you may still be able to spread the virus that made you sick, even if you are feeling better. You are likely to be less contagious at this time, depending on factors like how long you were sick or how sick you were. If you develop a fever or you start to feel worse after you have gone back to normal activities, stay home and away from others again until, for at least 24 hours, both are true: your symptoms are improving overall, and you have not had a fever (and are not using fever-reducing medication). Then take added precaution for the next 5 days. When to seek emergency medical attention Look for emergency warning signs for COVID-19. If someone is showing any of these signs, seek emergency medical care immediately: Trouble breathing Persistent pain or pressure in the chest New confusion Inability to wake or stay awake Bluish lips or face Call your medical provider for any other symptoms that are severe or concerning to you. Call 911 or call ahead to your local emergency facility: Notify the hotbed transfer operator that you are seeking care for someone who has or may have COVID-19. Refer to the CDC for full guidance: https://www.cdc.gov/respiratory-viruses/index.html documented in this encounterBethesda [facility]01-[facility]25 NoteHNO ID: [id number] Author: BINTA HATHAWAY APRN.LORI Service: ? Author Type: Nurse Practitioner Type: Progress Notes Filed: 10/30/2024 10:33 Note Text: This note was created using NoteWriter. Subjective Jackson Ny is a 24 year old female. 24 year old female with PMH GERD, ADHD, and bipolar presents for illness. 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 No insolvency consultant was used. Ear Pain This is a new problem. The current episode started yesterday. The problem occurs constantly. The problem has been gradually worsening. Associated symptoms include congestion, coughing, fatigue, a fever, headaches and swollen glands. Pertinent negatives include no abdominal pain, anorexia, arthralgias, change in bowel habit, chest pain, chills, diaphoresis, joint swelling, myalgias, nausea, neck pain, numbness, rash, sore throat, urinary symptoms, vertigo, visual change, vomiting or weakness. Nothing aggravates the symptoms. She has tried nothing for the symptoms. The treatment provided no relief. URI She complains of cough and sputum production. There is no chest tightness, difficulty breathing, frequent throat clearing, hemoptysis, hoarse voice, shortness of breath or wheezing. This is a new problem. The current episode started in the past 7 days. The problem occurs constantly. The problem has been gradually improving. The cough is productive of sputum. Associated symptoms include ear congestion, ear pain, a fever, headaches, postnasal drip and rhinorrhea. Pertinent negatives include no chest pain, heartburn, malaise/fatigue, myalgias, orthopnea, sore throat, sweats or trouble swallowing. Her symptoms are aggravated by nothing. Her symptoms are alleviated by nothing. She reports no improvement on treatment. Risk factors for lung disease include smoking/tobacco exposure. There is no history of asthma, bronchiectasis, bronchitis, COPD, emphysema or pneumonia. PAST MEDICAL HISTORY Diagnosis Date Abnormal Pap smear of cervix 07/2019 LSIL Bacterial vaginosis Chlamydia infection 07/2019 Exercise-induced asthma Generalized anxiety disorder Herpes simplex virus (HSV) infection Herpes, genital 2024 Infectious mononucleosis 01/2017 Trichimoniasis PAST SURGICAL HISTORY Procedure Laterality Date NONE ALLERGIES Amoxicillin MEDICATIONS Levonorgestrel-Ethinyl Estrad (AVIANE) 0.1mg - 20mcg per tablet Take 1 tablet by mouth once daily. etonogestrel (NEXPLANON) 68 mg impl subdermal implant 68 mg by SUBDERMAL route one time only. cefdinir (OMNICEF) 300 mg capsule Take 1 capsule by mouth two times a day for 7 days. FAMILY HISTORY Problem Relation Age of Onset No Known Problems Father No Known Problems Sister No Known Problems Sister No Known Problems Brother No Known Problems Brother No Known Problems Brother No Known Problems Brother No Known Problems Brother No Known Problems Brother No Known Problems Brother Stroke Maternal Grandfather other (Asthma) Other Grandparent Social History Tobacco Use Smoking status: Former Current packs/day: 0.25 Average packs/day: 0.3 packs/day for 0.5 years (0.1 ttl pk-yrs) Types: Cigarettes Smokeless tobacco: Never Vaping Use Vaping status: Former Substance Use Topics Alcohol use: No Drug use: Not Currently Frequency: 7.0 times per week Types: Marijuana Review of Systems Constitutional: Positive for fatigue and fever. Negative for chills, diaphoresis and malaise/fatigue. HENT: Positive for congestion, ear pain, postnasal drip and rhinorrhea. Negative for hoarse voice, sore throat and trouble swallowing. Eyes: Negative for pain, discharge, redness and itching. Respiratory: Positive for cough and sputum production. Negative for hemoptysis, shortness of breath and wheezing. Cardiovascular: Negative for chest pain. Gastrointestinal: Negative for abdominal pain, anorexia, change in bowel habit, heartburn, nausea and vomiting. Musculoskeletal: Negative for arthralgias, joint swelling, myalgias and neck pain. Skin: Negative for rash. Neurological: Positive for headaches. Negative for vertigo, weakness and numbness. Hematological: Negative for adenopathy. Does not bruise/bleed easily. Psychiatric/Behavioral: Negative for agitation and behavioral problems. Objective BP 128/84 Pulse 86 Temp 37.8 ?C (100.1 ?F) Resp 20 Wt 79 kg (174 lb 2.6 oz) LMP 10/23/2024 (Exact Date) SpO2 97% No BMI 28.11 kg/m? Physical Exam Vitals and nursing note reviewed. Constitutional: General: She is not (more content not included)...[facility] 10-30-2024 History of Present illness Narrative* Binta Hathaway, TAVO.UNDERGROUND UTILITY LOCATOR - 10/30/2024 10:07 AM EST This note was created using NoteWriter. Subjective Jackson Ny is a 24 year old female. 24 year old female with PMH GERD, ADHD, and bipolar presents for illness. 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 No insolvency consultant was used. Ear Pain This is a new problem. The current episode started yesterday. The problem occurs constantly. The problem has been gradually worsening. Associated symptoms include congestion, coughing, fatigue, a fever, headaches and swollen glands. Pertinent negatives include no abdominal pain, anorexia, arthralgias, change in bowel habit, chest pain, chills, diaphoresis, joint swelling, myalgias, nausea, neck pain, numbness, rash, sore throat, urinary symptoms, vertigo, visual change, vomiting or weakness. Nothing aggravates the symptoms. She has tried nothing for the symptoms. The treatment provided no relief. URI She complains of cough and sputum production. There is no chest tightness, difficulty breathing, frequent throat clearing, hemoptysis, hoarse voice, shortness of breath or wheezing. This is a new problem. The current episode started in the past 7 days. The problem occurs constantly. The problem hasbeen gradually improving. The cough is productive of sputum. Associated symptoms include ear congestion, ear pain, a fever, headaches, postnasal drip and rhinorrhea. Pertinent negatives include no chest pain, heartburn, malaise/fatigue, myalgias, orthopnea, sore throat, sweats or trouble swallowing. Her symptoms are aggravated by nothing. Her symptoms are alleviated by nothing. She reports no improvement on treatment. Risk factors for lung disease include smoking/tobacco exposure. There is no history of asthma, bronchiectasis, bronchitis, COPD, emphysema or pneumonia. PAST MEDICAL HISTORY Diagnosis Date Abnormal Pap smear of cervix 07/2019 LSIL Bacterial vaginosis Chlamydia infection 07/2019 Exercise-induced asthma Generalized anxiety disorder Herpes simplex virus (HSV) infection Herpes, genital 2024 Infectious mononucleosis 01/2017 Trichimoniasis PAST SURGICAL HISTORY Procedure Laterality Date NONE ALLERGIES Amoxicillin MEDICATIONS Levonorgestrel-Ethinyl Estrad (AVIANE) 0.1mg - 20mcg per tablet Take 1 tablet by mouth once daily. etonogestrel (NEXPLANON) 68 mg impl subdermal implant 68 mg by SUBDERMAL route one time only. cefdinir (OMNICEF) 300 mg capsule Take 1 capsule by mouth two times a day for 7 days. FAMILY HISTORY Problem Relation Age of Onset No Known Problems Father No Known Problems Sister No Known Problems Sister No Known Problems Brother No Known Problems Brother No Known Problems Brother No Known Problems Brother No Known Problems Brother No Known Problems Brother No Known Problems Brother Stroke Maternal Grandfather other (Asthma) Other Grandparent Social History Tobacco Use Smoking status: Former Current packs/day: 0.25 Average packs/day: 0.3 packs/day for 0.5 years (0.1 ttl pk-yrs) Types: Cigarettes Smokeless tobacco: Never Vaping Use Vaping status: Former Substance Use Topics Alcohol use: No Drug use: Not Currently Frequency: 7.0 times per week Types: Marijuana Review of Systems Constitutional: Positive for fatigue and fever. Negative for chills, diaphoresis and malaise/fatigue. HENT: Positive for congestion, ear pain, postnasal drip and rhinorrhea. Negative for hoarse voice, sore throat and trouble swallowing. Eyes: Negative for pain, discharge, redness and itching. Respiratory: Positive for cough and sputum production. Negative for hemoptysis, shortness of breathand wheezing. Cardiovascular: Negative for chest pain. Gastrointestinal: Negative for abdominal pain, anorexia, change in bowel habit, heartburn, nausea and vomiting. Musculoskeletal: Negative for arthralgias, joint swelling, myalgias and neck pain. Skin: Negative for rash. Neurological: Positive for headaches. Negative for vertigo, weakness and numbness. Hematological: Negative for adenopathy. Does not bruise/bleed easily. Psychiatric/Behavioral: Negative for agitation and behavioral problems. Objective BP 128/84 Pulse 86 Temp 37.8 C (100.1 F) Resp 20 Wt 79 kg (174 lb 2.6 oz) LMP 10/23/2024 (Exact Date) SpO2 97% No BMI 28.11 kg/m Physical Exam Vitals and nursing note reviewed. Constitutional: General: She is not in acute distress. Appearance: Normal appearance. She is normal weight. She is not ill-appearing, toxic-appearing or diaphoretic. HENT: Head: Normocephalic and atraumatic. Right Ear: Ear canal and external ear normal. Left Ear: Ear canal and external ear normal. Ears: Comments: Left TM erythematous and bulging Nose: Nose normal. No congestion or rhinorrhea. Mouth/Throat: Mouth: Mucous membranes are moist. Pharynx: Posterior oropharyngeal erythema present. No oropharyngeal exudate. Eyes: General: Right eye: No discharge. Left eye: No discharge. Extraocular Movements: Extraocular movements intact. Conjunctiva/sclera: Conjunctivae normal. Pupils: Pupils are equal, round, and reactive to light. Cardiovascular: Rate and Rhythm: Normal rate and regular rhythm. Pulses: Normal pulses. Heart sounds: Normal heart sounds. No murmur heard. No friction rub. Pulmonary: Effort: Pulmonary effort is normal. No respiratory distress. Breath sounds: Normal breath sounds. No stridor. No wheezing, rhonchi or rales. Chest: Chest wall: No tenderness. Abdominal: General: Abdomen is flat. There is no distension. Palpations: Abdomen is soft. There is no mass. Tenderness: There is no abdominal tenderness. There is no right CVA tenderness, left CVA tenderness, guarding or rebound. Hernia: No hernia is present. Musculoskeletal: General: No swelling, tenderness, deformity or signs of injury. Normal range of motion. Cervical back: Normal range of motion and neck supple. No rigidity. Right lower leg: No edema. Left lower leg: No edema. Lymphadenopathy: Cervical: Cervical adenopathy present. Skin: General: Skin is warm and dry. Coloration: Skin is not jaundiced or pale. Findings: No bruising, erythema, lesion or rash. Neurological: General: No focal deficit present. Mental Status: She is alert and oriented to person, place, and time. Cranial Nerves: No cranial nerve deficit. Sensory: No sensory deficit. Motor: No weakness. Coordination: Coordination normal. Gait: Gait normal. Psychiatric: Mood and Affect: Mood normal. Behavior: Behavior normal. Thought Content: Thought content normal. Judgment: Judgment normal. Assessment and Plan ASSESSMENT/PLAN: 1. Acute otitis media, left - ICD9: 382.9, ICD10: H66.92 (primary diagnosis) - Will begin treatment with as per antibiotic as written, see orders - The patient should also be given OTC cough and cold meds as needed, warm salt water gargles, throat lozenges and/or OTC throat spray as needed, and nasal saline gtts and suction prn for the first 5-7 days of treatment. - Supportive care with plenty of fluids, rest, and analgesia prn. - Follow up in 3-5 days if symptoms persist or worsen. 2. COVID-19 - ICD9: 079.89, ICD10: U07.1 Tested POSITIVE 10/25/24 Improving Discussed CDC guidelines Follow up with PCP Return to work note provided Binta Hathaway APRN.CNP documented in this encounterBet[facility]da [facility] Hospital01-16-[facility]25 Telephone encounter Note * Telephone Encounter - Alyson Barksdale RN - 10/27/2024 9:16 AM EST T4 is able to be added on to blood work, but patient will have to get thyroid antibody drawn though. Patient notified. She plans to get blood work drawn 10/31. Transferred to [facility] to schedule. Alyson Barksdale RN [facility]01-16-[facility]25 Miscellaneous Notes* Telephone Encounter - Alyson Barksdale RN - 10/27/2024 9:16 AM EST T4 is able to be added on to blood work, but patient will have to get thyroid antibody drawn though. Patient notified. She plans to get blood work drawn 10/31. Transferred to [facility] to schedule. Alyson Barksdale RN * Telephone Encounter - Reagan Campos APRN.CNP - 10/27/2024 8:38 AM EST T4 and TPO added on. Please see if lab can add these on. Will need consult with endocrinology Reagan Campos APRN.CNP * Telephone Encounter - Alyson Barksdale RN - 10/26/2024 4:38 PM EST Patient calling in because she saw her elevated TSH level on mychart. Patient aware [facility] out of office until Thursday. Will route to another provider to review. Should other thyroid labs be ordered? TSH Date Value Ref Range Status 10/25/2024 23.060 (H) 0.270 - 4.200 mIU/L Final Comment: Alyson Barksdale RN documented in this encounterBethesda North Hospital01-16-2025 Telephone encounter Note * Telephone Encounter - Reagan Campos APRN.CNP - 10/27/2024 8:38 AM EST T4 and TPO added on. Please see if lab can add these on. Will need consult with endocrinology Reagan Campos APRN.CNP [facility]01[facility] Telephone encounter Note* Telephone Encounter - Alyson Barksdale RN - 10/26/2024 4:38 PM EST Patient calling in because she saw her elevated TSH level on [facility]. Patient aware [facility] out of office until Thursday. Will route to another provider to review. Should other thyroid labs be ordered? TSH Date Value Ref Range Status 10/25/2024 23.060 (H) 0.270 - 4.200 mIU/L Final Comment: Alyson Barksdale RN [facility]01-14-[facility] Instructions* Patient Instructions* Binta Carcamo APRN.CNM - 10/25/2024 12:02 PM EST Oral Contraceptives: The Pill Beginning the Pill Pills come in either a 21 day pack or a 28 day pack. With the 21 day pack you will take one pill for 21 days then no pill for 7 days, during which time you will have what is known as withdrawal bleeding. The 28 day pack allows you to take a pill every day of the cycle with no interruptions. The first 21 pills are the pills with the active ingredients and the last 7 are the nonmedical pills (placebo) or they may contain iron. There will be bleeding during the week you are taking the nonmedical pills. The advantage to the 28 day pack is that you don t have to keep track of when you stopped the pill. Unless otherwise instructed, you should start your pills the Thursday following your first day of bleeding with your next period (if your period starts on a Thursday, you should start pills the same day) Read your information packet that comes with the pills. Pill Benefits The pill is the most popular method of reversible control being used today. Millions of womenrely on oral contraceptives as their control method. It is important to have an examination by your physician to determine if the pill is safe for you. There are several advantages associated with the pill: it is 97-98% effective; may improve acne; periods are more regular and less painful; there is less iron deficiency anemia in pill users. longterm use is associated with a decreased incidence of ovarian and uterine cancer. There is also no evidence that the pill increases the incidenceof any cancer. How Oral Contraceptives Work Oral contraceptives come in two varieties. One is the combination pill which contains both estrogenand progesterone. Combination pills are considered 98-99% effective in preventing . This pill comes in either monophasic, which delivers the same amount of estrogen and progesterone throughout the cycle; and triphasic, which try tries to mimic the normal hormone cycle by changing the levels of the hormones in the pills during the month. There is no real advantage to taking the one over the other. The other type of pill only contains progesterone. It is best used for women who can t take estrogen. This type of pill is slightly less effective than the combination pill in preventing preg marybeth. Oral contraceptives prevent ovulation (release of an egg from the ovary) by suppressing the pituitary gland s action. The pill does NOT prevent sexually transmitted disease. Obtaining a Prescription It is important to see your doctor before starting oral contraceptives so that you can have a full medical history taken and a physical examination given. Certain medical conditions may make the pillinappropriate for you, therefore it is very important to be honest and as complete as possible withthe information you share with your doctor. The types of predisposing factors which would make the pill a poor choice of control would include: History of blood clots Stroke Serious liver disease or impaired liver function Unexplained vaginal bleeding or Cancer of the reproductive system Active gall bladder disease Hypertension Possible Side Effects It can take up to three months for your body to become adjusted to the pill. The more common side effects experienced at this time are: breakthrough spotting or bleeding, which is bleeding at any other time other than when you should be having a period; nausea or vomiting; breast tenderness; and mild fluid retention. There is no shelter weight gain with the use of the pill. Breakthrough bleeding is the most common complaint of new pill users. There is no way to predict who will have it and there is no way of preventing it. Breakthrough bleeding usually subsides on its own with no further treatment after the first three months of taking the pill. If these symptoms continue to occur after the first three months you should check with your physician to see if there is any physical cause andpossibly change to another control pill. Problems: Missed 1 pill: Take 2 pills the next day. Missed 2 pills: Take 2 pills the next day and 2 pills the following day. Also use another form of control (condoms) along with the pill for the rest of the month. Missed 3 or more pills: You have two choices. You can take two pills each day until you are on schedule, plus use an additional form of control along with the pill for the rest of the month. Oryou can stop the pill and start a completely new pack of pills the next Thursday. You must use another form of control with the pill for at least the first two weeks of the new pack. You re ill and you have been vomiting or have diarrhea: You must use another form of control with the pill since the pill may not be fully absorbed during your illness. Continue to use the added control until the end of the cycle. Desire to become : Stop using the pill for one month before trying to become . Taking other medications: The control pill is less effective when you take the antibiotic Rifampin, epilepsy (seizure) drugs such as phenytoin, carbamazepine, phenobarbital, topiramate and somemedications for HIV. Let your doctor know if you start taking any of these medications while on thepill. Symptoms to Notify Your Doctor with Immediately: Pain in your chest or legs Continuous blurred vision Severe headaches Slurred speech Tingling or weakness on one side of your body Shortness of breath Swelling of one leg Refills of Control Pills You need to see a doctor every year for a refill of your prescription. This is necessary in order that your health can be monitored closely while you are taking control pills. If your prescription should before your next scheduled appointment you can usually get a one month extension from your doctors office if you call during regular business hours about one week before you need to start the new package of pills. This allows the physician to refer to your chart for necessary health information. documented in this encounterBethesda North Hospital01-14-2025 NoteHNO ID: [id number] Author: BINTA CARCAMO APRN.CNM Service: ? Author Type: Media Services Coordinator Type: Progress Notes Filed: 10/25/2024 14:50 Note Text: Transplant Immunologist offered: Patient declines. Jackson Ny is a 24 year old female who presents for problem visit frequent vaginal bleeding, and discussion for Nexplanon Removal. HPI: Jackson presents for frequent vaginal bleeding. She is not bleeding today. Son born 05/07/24, Nexplanon inserted 05/08/24 immediately at hospital. Since placement, bleeding more than she is not. Was bleeding for 3 weeks straight and then has a few days with no bleeding and then will start again. Having some cramping but no pelvic pain. Cramping occurs with bleeding. Flow is heavy, She was changing a pad or tampon every couple hours. She wants to discuss whether the Nexplanon is the reason for her bleeding, and a possible removal if it is the cause of her bleeding. Denies any large clots. 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 History Comments: Sexual Activity: Yes; Male Contraception: Implant PAST MEDICAL HISTORY Diagnosis Date Abnormal Pap smear of cervix 07/2019 LSIL Bacterial vaginosis Chlamydia infection 07/2019 Exercise-induced asthma Generalized anxiety disorder Herpes simplex virus (HSV) infection Herpes, genital 2024 Infectious mononucleosis 01/2017 Trichimoniasis PAST SURGICAL HISTORY Procedure Laterality Date NONE FAMILY HISTORY Problem Relation Age of Onset No Known Problems Father No Known Problems Sister No Known Problems Sister No Known Problems Brother No Known Problems Brother No Known Problems Brother No Known Problems Brother No Known Problems Brother No Known Problems Brother No Known Problems Brother Stroke Maternal Grandfather other (Asthma) Other Grandparent Social History Tobacco Use Smoking status: Former Current packs/day: 0.25 Average packs/day: 0.3 packs/day for 0.5 years (0.1 ttl pk-yrs) Types: Cigarettes Smokeless tobacco: Never Vaping Use Vaping status: Former Substance Use Topics Alcohol use: No Drug use: Not Currently Frequency: 7.0 times per week Types: Marijuana Current Outpatient Medications Medication Sig etonogestrel (NEXPLANON) 68 mg impl subdermal implant 68 mg by SUBDERMAL route one time only. No current facility-administered medications for this visit. Allergies As of Date: 10/25/2024 Allergen Noted Reaction AMOXICILLIN 11/24/2013 Swelling Fully Assessed 10/25/2024 REVIEW OF SYSTEMS Abdomen: No bloating, early satiety, indigestion, or increased flatulence. No abdominal pain, nausea, vomiting, diarrhea, or constipation. Bladder: No dysuria, gross hematuria, urinary frequency, urinary urgency, or incontinence. Breast: No breast lumps, nipple d/c, overlying skin changes, redness or skin retraction. Expanded ROS: N/A Allergies and current medication updated:Yes SENSITIVE EXAM: The sensitive examination was discussed with the Patient or Patient's Authorized Surgical Instruments Inspector. As applicable, any other physician, advance practice provider, medical student, or other health professional student that will be observing or involved in the sensitive examination for educational or training purposes was discussed with the Patient or Authorized Surgical Instruments Inspector. The Patient or Authorized Surgical Instruments Inspector has agreed to proceed with the sensitive examination. (Sensitive examination includes inspection and/or palpation of the breasts, pelvis, prostate and anorectal regions). EXAM: BP 100/60 Wt 177 lb (80.3kg) LMP 10/08/2024 GENERAL: pleasant, female in no apparent distress HEENT: Normocephalic and atraumatic NECK: Supple and full range of motion DERMATOLOGY: Normal and without lesions CHEST: Normal inspiratory effort ABDOMEN: soft, non-tender, and no masses PELVIC: deferred BIMANUAL: deferred NEURO: alert and oriented x3,exam grossly non-focal EXTREMITIES: normal ASSESSMENT AND PLAN: Assessment AND Plan Breakthrough bleeding on Nexplanon Orders: THYROID STIMULATING HORMONE; Future COMPLETE BLOOD COUNT AND DIFFERENTIAL; Future -Reviewed option to add OCP for 3 months and then follow up to see if improvement. If desires removal at anytime can remove and discuss other options. Discussed irregular bleeding is common as long as she is stable and no other side effects. She agrees with trailing OCP and then will follow up. -Denies concerns for STDs or testing I discussed with the patient the risks, benefits, mechanism of action and alternatives to combined hormonal contraceptive use. No medical contraindications. Reviewed risk of blood clot, stroke and heart attack with hormonal contraception. Reviewed warning signs "ACHES". Discussed stopping control 4 weeks prior (more content not included)...[facility] 10-25-2024 History of Present illness Narrative* Binta Carcamo APRN.[facility] - 10/25/2024 11:22 AM EST Transplant Immunologist offered: Patient declines. Jackson Ny is a 24 year old female who presents for problem visit frequent vaginal bleeding, and discussion for Nexplanon Removal. HPI: Jackson presents for frequent vaginal bleeding. She is not bleeding today. Son born 05/07/24, Nexplanon inserted 05/08/24 immediately at hospital. Since placement, bleeding more than she is not. Was bleeding for 3 weeks straight and then has a few days with no bleeding and then will start again. Having some cramping but no pelvic pain. Cramping occurs with bleeding. Flow is heavy, She was changing a pad or tampon every couple hours. She wants to discuss whetherthe Nexplanon is the reason for her bleeding, and a possible removal if it is the cause of her bleeding. Denies any large clots. 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 History Comments: Sexual Activity: Yes; Male Contraception: Implant PAST MEDICAL HISTORY Diagnosis Date Abnormal Pap smear of cervix 07/2019 LSIL Bacterial vaginosis Chlamydia infection 07/2019 Exercise-induced asthma Generalized anxiety disorder Herpes simplex virus (HSV) infection Herpes, genital 2024 Infectious mononucleosis 01/2017 Trichimoniasis PAST SURGICAL HISTORY Procedure Laterality Date NONE FAMILY HISTORY Problem Relation Age of Onset No Known Problems Father No Known Problems Sister No Known Problems Sister No Known Problems Brother No Known Problems Brother No Known Problems Brother No Known Problems Brother No Known Problems Brother No Known Problems Brother No Known Problems Brother Stroke Maternal Grandfather other (Asthma) Other Grandparent Social History Tobacco Use Smoking status: Former Current packs/day: 0.25 Average packs/day: 0.3 packs/day for 0.5 years (0.1 ttl pk-yrs) Types: Cigarettes Smokeless tobacco: Never Vaping Use Vaping status: Former Substance Use Topics Alcohol use: No Drug use: Not Currently Frequency: 7.0 times per week Types: Marijuana Current Outpatient Medications Medication Sig etonogestrel (NEXPLANON) 68 mg impl subdermal implant 68 mg by SUBDERMAL route one time only. No current facility-administered medications for this visit. Allergies As of Date: 10/25/2024 Allergen Noted Reaction AMOXICILLIN 11/24/2013 Swelling Fully Assessed 10/25/2024 REVIEW OF SYSTEMS Abdomen: No bloating, early satiety, indigestion, or increased flatulence. No abdominal pain, nausea, vomiting, diarrhea, or constipation. Bladder: No dysuria, gross hematuria, urinary frequency, urinary urgency, or incontinence. Breast: No breast lumps, nipple d/c, overlying skin changes, redness or skin retraction. Expanded ROS: N/A Allergies and current medication updated:Yes SENSITIVE EXAM: The sensitive examination was discussed with the Patient or Patient's Authorized Surgical Instruments Inspector. As applicable, any other physician, advance practice provider, medical student, or other health professional student that will be observing or involved in the sensitive examination for educational or training purposes was discussed with the Patient or Authorized Surgical Instruments Inspector. The Patient or Authorized Surgical Instruments Inspector has agreed to proceed with the sensitive examination. (Sensitive examination includes inspection and/or palpation of the breasts, pelvis, prostate and anorectal regions). EXAM: BP 100/60 Wt 177 lb (80.3kg) LMP 10/08/2024 GENERAL: pleasant, female in no apparent distress HEENT: Normocephalic and atraumatic NECK: Supple and full range of motion DERMATOLOGY: Normal and without lesions CHEST: Normal inspiratory effort ABDOMEN: soft, non-tender, and no masses PELVIC: deferred BIMANUAL: deferred NEURO: alert and oriented x3,exam grossly non-focal EXTREMITIES: normal ASSESSMENT AND PLAN: Assessment & Plan Breakthrough bleeding on Nexplanon Orders: THYROID STIMULATING HORMONE; Future COMPLETE BLOOD COUNT AND DIFFERENTIAL; Future -Reviewed option to add OCP for 3 months and then follow up to see if improvement. If desires removal at anytime can remove and discuss other options. Discussed irregular bleeding is common as long as she is stable and no other side effects. She agrees with trailing OCP and then will follow up. -Denies concerns for STDs or testing I discussed with the patient the risks, benefits, mechanism of action and alternatives to combined hormonal contraceptive use. No medical contraindications. Reviewed risk of blood clot, stroke and heart attack with hormonal contraception. Reviewed warning signs "ACHES". Discussed stopping control 4 weeks prior to scheduled surgery if will be immobile. I reviewed with her the administration options and when to start. Her questions were answered and she desired to start. Binta Carcamo APRN.CNM documented [facility] encounterBet[facility] Telephone encounter Note * Telephone Encounter - Karina Manning RN - 10/07/2024 9:04 AM EST Patient having a current HSV outbreak. Needing Acyclovir. RX pending. Karina Manning RN [facility]12-27-2024 Miscellaneous Notes* Telephone Encounter - Karina Manning RN - 10/07/2024 9:04 AM EST Patient having a current HSV outbreak. Needing Acyclovir. RX pending. Karina Manning RN documented in this encounterBethesda North Hospital12-17-2024 Telephone encounter Note * Telephone Encounter - Alyson Barksdale RN - 09/27/2024 2:40 PM EST Patient notified. Alyson Barksdale RN The following approved medication requests have been transmitted electronically. Requested Prescriptions Signed Prescriptions Disp Refills metroNIDAZOLE (FLAGYL) 500 mg tablet 14 tablet 0 Sig: Take 1 tablet by mouth two times a day for 7 days. Authorizing Provider: URBAN BURNETT Pharmacy Information Pharmacy Address Telephone [facility] [phone] [place] [phone] [facility]12-17-[facility] Miscellaneous Notes* Telephone Encounter - Alyson Barksdale RN - 09/27/2024 2:40 PM EST Patient notified. Alyson Barksdale RN The following approved medication requests have been transmitted electronically. Requested Prescriptions Signed Prescriptions Disp Refills metroNIDAZOLE (FLAGYL) 500 mg tablet 14 tablet 0 Sig: Take 1 tablet by mouth two times a day for 7 days. Authorizing Provider: URBAN BURNETT Pharmacy Information Pharmacy Address Telephone [facility] [phone] [place] [phone] * Telephone Encounter - Urban Burnett MD - 09/27/2024 2:33 PM EST EPT ordered. Urban Burnett MD * Telephone Encounter - Maddison Moreno LPN - 09/27/2024 8:54 AM EST Patient called stating that she completed treatment for trichomoniasis but partner has not and is requesting EPT. Expedited Partner Therapy (EPT) EPT is being prescribed today to the patient s partner(s) as the following conditions have been met: The intended recipient is a sexual partner of Jackson Ny. Jackson Ny has been diagnosed with trichomoniasis. Jackson Ny reports that sexual partner is unable or unlikely to be evaluated or treated by a health professional. EPT is being prescribed for no more than two sexual partners. Jackson Ny's sexual partner(s) have been contacted: Yes Sexual partner(s) have been informed that he or she may have been exposed to trichomoniasis. Sexual partner(s) have been encouraged to seek treatment and testing from a healthcare professional. Treatment options available have been explained. documented in this encounterBethesda [facility] Hospital12-17-2024 Telephone encounter Note * Telephone Encounter - Urban Burnett MD - 09/27/2024 2:33 PM EST EPT ordered. Urban Burnett MD [facility]12-17-[facility] Instructions* Patient Instructions* Maddison Moreno LPN - 09/27/2024 8:55 AM EST Expedited Partner Treatment Trichomonas: Guide for Partners who Receive Metronidazole Why am I getting this prescription or medication? Trichomonas is a sexually transmitted infection (STI). Although some patients with trichomonas experience symptoms, many do not have any signs or symptoms. Symptoms of trichomonas can include: pain or burning when you pee, fluid/discharge from the vagina, penis, or rectum that smells or looks strange, or pain with sex. You can give trichomonas to others you have sex with; so, it is important to get treatment. Untreated trichomonas can lead to worsening symptoms and a higher chance of getting HIV. It is important to complete the entire treatment for this infection. What is the treatment for trichomonas? The prescription you are given today is for an oral antibiotic called metronidazole. Do NOT take this antibiotic if you have a severe allergy to metronidazole. This antibiotic can be taken with food to help prevent an upset stomach. Side effects can include nausea, vomiting, abdominal pain, diarrhea, metallic taste, and headache. If you experience any symptoms of an allergic reaction such as trouble breathing, chest tightness, closing of the throat, swelling of the lips or tongue, and itchy bumps on your skin, seek medical attention right away. What else should I do? Do not have sex for at least 7 days after you AND your sexual partner have been treated. See a healthcare provider for additional testing for other STIs, including HIV and syphilis. It is important to be tested for other STIs because this medication will only treat trichomonas. Using condoms correctly and consistently during sex is the best way to prevent other STIs. documented in this encounterBethes[facility] Hospital12-17-2024 Telephone encounter Note * Telephone Encounter - Maddison Moreno LPN - 09/27/2024 8:54 AM EST Patient called stating that she completed treatment for trichomoniasis but partner has not and is requesting EPT. Expedited Partner Therapy (EPT) EPT is being prescribed today to the patient s partner(s) as the following conditions have been met: The intended recipient is a sexual partner of Jackson Ny. Jackson Ny has been diagnosed with trichomoniasis. Jackson Ny reports that sexual partner is unable or unlikely to be evaluated or treated by a health professional. EPT is being prescribed for no more than two sexual partners. Jackson Ny's sexual partner(s) have been contacted: Yes Sexual partner(s) have been informed that he or she may have been exposed to trichomoniasis. Sexual partner(s) have been encouraged to seek treatment and testing from a healthcare professional. Treatment options available have been explained. [facility]12-03-2024 Instructions* Patient Instructions* Nohelia Oconnor MA - 09/13/2024 1:35 PM EST Minimizing irritation of the vulva (area around the vagina) Wear white cotton underwear. Avoid synthetic fabrics and tight clothing. Sleep wearing shorts or pajama bottoms without underwear. Shower as soon as possible after exercise. Avoid clothing detergents and soaps with perfumes or dyes. Use warm (not hot) water to wash the vulva and if you use soap use a product designed for sensitive skin (like Dove or Cetaphil). Do not douche or use creams/powders in the vulvar area unless instructed by your physician. If you must douche, use only plain warm water. Make sure the vulva is dry before dressing by patting dry with a towel. Avoid vigorous rubbing withthe towel. You may want to use the blow dryer (on the cool setting only!) on the vulva. The most important way to let your body heal is by avoiding scratching. Many patients find it difficult to avoid scratching at night when they are most aware of the itchiness. You can try taking Benadryl just before bedtime. Some women find it helpful to wear cotton gloves to bed to avoid scratching at night. documented in this encounterBethesda North Hospital12-03-2024 NoteHNO ID: [id number] Author: KARINA KWONG MD Service: ? Author Type: Physician Type: Progress Notes Filed: 09/13/2024 14:20 Note Text: Transplant Immunologist offered: Patient declines. Has not been with partner again but is still having discharge. Worried that it was not completely treated, Has only been a week since finishing treatment for trich. He has not been treated Jackson Ny is a 24 year old female who presents for vaginal discharge for 3- 4 days. Vaginal discharge: moderate amount, foul smelling, garcia, and brown. Itching: Some Dyspareunia: No Fever/chills: No Abdominal pain: No Bladder: Negative for dysuria or frequency Bowel: No blood in stool, pain with BM, tarry stool, persistent diarrhea or constipation Any new sexual partners or concern for STD exposure: No Any history of STDs: HSV and trichomonas Does your partner have any new complaints: No Are you currently taking any medications to treat vaginitis: No Do you use feminine sprays, douches or deodorants: No Menstrual cycle: cycles every 28-30 days and 9 days of flow Contraception: Nexplanon Last pap: 2023, normal Past medical, surgical, social history, medications and allergies reviewed and updated. OBJECTIVE: SENSITIVE EXAM: The sensitive examination was discussed with the Patient or Patient's Authorized Surgical Instruments Inspector. As applicable, any other physician, advance practice provider, medical student, or other health professional student that will be observing or involved in the sensitive examination for educational or training purposes was discussed with the Patient or Authorized Surgical Instruments Inspector. The Patient or Authorized Surgical Instruments Inspector has agreed to proceed with the sensitive examination. (Sensitive examination includes inspection and/or palpation of the breasts, pelvis, prostate and anorectal regions). BP 118/76 Wt 170 lb 12.8 oz (77.5kg) LMP 08/21/2023 GENERAL: Well developed, well nourished in no apparent distress ABDOMEN: soft, non-tender, and no masses PELVIC: external genitalia normal, normal Bartholin's glands, urethra, Mccomb's glands, no vulvar lesions, no cervical lesions, good vaginal support, physiologic discharge present, normal appearing perineal body and perianal region BIMANUAL: deferred. RECTOVAGINAL: deferred. ASSESSMENT/PLAN: Vaginal culture collected STD screening: Accepted STD check for Gonorrhea and Chlamydia. Any new medications given to the patient have been explained as to directions, reasons for prescribing and side effects. Perineal hygiene and safe sex were discussed with the patient. Discussed EPT. Will call with his information Karina Kwong [facility]12-03-2024 History of Present illness Narrative* Karina Kwong MD - 09/13/2024 1:34 PM EST Transplant Immunologist offered: Patient declines. Has not been with partner again but is still having discharge. Worried that it was not completely treated, Has only been a week since finishing treatment for trich. He has not been treated Jackson Ny is a 24 year old female who presents for vaginal discharge for 3- 4 days. Vaginal discharge: moderate amount, foul smelling, garcia, and brown. Itching: Some Dyspareunia: No Fever/chills: No Abdominal pain: No Bladder: Negative for dysuria or frequency Bowel: No blood in stool, pain with BM, tarry stool, persistent diarrhea or constipation Any new sexual partners or concern for STD exposure: No Any history of STDs: HSV and trichomonas Does your partner have any new complaints: No Are you currently taking any medications to treat vaginitis: No Do you use feminine sprays, douches or deodorants: No Menstrual cycle: cycles every 28-30 days and 9 days of flow Contraception: Nexplanon Last pap: 2023, normal Past medical, surgical, social history, medications and allergies reviewed and updated. OBJECTIVE: SENSITIVE EXAM: The sensitive examination was discussed with the Patient or Patient's Authorized Surgical Instruments Inspector. As applicable, any other physician, advance practice provider, medical student, or other health professional student that will be observing or involved in the sensitive examination for educational or training purposes was discussed with the Patient or Authorized Surgical Instruments Inspector. The Patient or Authorized Surgical Instruments Inspector has agreed to proceed with the sensitive examination. (Sensitive examination includes inspection and/or palpation of the breasts, pelvis, prostate and anorectal regions). BP 118/76 Wt 170 lb 12.8 oz (77.5kg) LMP 08/21/2023 GENERAL: Well developed, well nourished in no apparent distress ABDOMEN: soft, non-tender, and no masses PELVIC: external genitalia normal, normal Bartholin's glands, urethra, Mccomb's glands, no vulvar lesions, no cervical lesions, good vaginal support, physiologic discharge present, normal appearing perineal body and perianal region BIMANUAL: deferred. RECTOVAGINAL: deferred. ASSESSMENT/PLAN: Vaginal culture collected STD screening: Accepted STD check for Gonorrhea and Chlamydia. Any new medications given to the patient have been explained as to directions, reasons for prescribing and side effects. Perineal hygiene and safe sex were discussed with the patient. Discussed EPT. Will call with his information Karina Kwong MD documented in this encounterBethesda [facility] Hospital11-27-2024 Telephone encounter Note * Telephone Encounter - Karina Manning RN - 09/07/2024 3:46 PM EST Patient notified. Karina Manning RN [facility]11-27-2024 Miscellaneous Notes* Telephone Encounter - Karina Manning RN - 09/07/2024 3:46 PM EST Patient notified. Karina Manning RN * Telephone Encounter - Reagan Campos APRN.CNP - 09/07/2024 3:42 PM EST Will start episodic treatment. Rx sent. Take 1 g Valtrex daily for 5 days. No intercourse until 2 weeks after lesions have completely resolved. Recommend follow up to discuss suppressive therapy. Reagan Campos APRN.LORI * Telephone Encounter - Alyson Barksdale RN - 09/07/2024 3:08 PM EST Patient calling c/o HSV outbreak. Has one painful lesion. Asking if she needs appt or if she can get rx for medication without being seen? Pharmacy correct. Alyson Barksdale RN documented in this encounterBethesda [facility] Hospital11-27-2024 Telephone encounter Note * Telephone Encounter - Reagan Campos APRN.CNP - 09/07/2024 3:42 PM EST Will start episodic treatment. Rx sent. Take 1 g Valtrex daily for 5 days. No intercourse until 2 weeks after lesions have completely resolved. Recommend follow up to discuss suppressive therapy. Reagan Campos APRN.LORI [facility]11-27-2024 Telephone encounter Note* Telephone Encounter - Alyson Barksdale RN - 09/07/2024 3:08 PM EST Patient calling c/o HSV outbreak. Has one painful lesion. Asking if she needs appt or if she can get rx for medication without being seen? Pharmacy correct. Alyson Barksdale RN [facility]11-22-[facility]24 Telephone encounter Note* Telephone Encounter - Ruben Vilchis RN - 09/02/2024 10:40 AM EST Pt notified and voiced understanding. Ruben Vilchis RN [facility]11-22-2024 Miscellaneous Notes* Telephone Encounter - Ruben Vilchis RN - 09/02/2024 10:40 AM EST Pt notified and voiced understanding. Ruben Vilchis RN * Telephone Encounter - Reagan Campos APRN.CNP - 09/02/2024 10:31 AM EST She can breastfeed while taking Flagyl. Recommend slowly weaning pumping/. Cool compresses and tight bra. Can trial Sudafed. Reagan Campos APRN.CNP * Telephone Encounter - Karina Manning RN - 09/02/2024 10:26 AM EST Patient called asking for a medication to dry up her milk. States she was prescribed medication forSTI and she can't breastfeed while taking it. She stopped the baby and has only pumped once. Plans to stop all together. Discussed wearing a tight supportive bra. Can a medication be pre scribed? Karina Manning RN documented in this encounterBethesda North Hospital11-22-2024 Telephone encounter Note * Telephone Encounter - Reagan Campos APRN.CNP - 09/02/2024 10:31 AM EST She can breastfeed while taking Flagyl. Recommend slowly weaning pumping/. Cool compresses and tight bra. Can trial Sudafed. Reagan Campos APRN.CNP [facility]11-22-[facility] Telephone encounter Note* Telephone Encounter - Karina Manning RN - 09/02/2024 10:26 AM EST Patient called asking for a medication to dry up her milk. States she was prescribed medication forSTI and she can't breastfeed while taking it. She stopped the baby and has only pumped once. Plans to stop all together. Discussed wearing a tight supportive bra. Can a medication be pre scribed? Karina Manning RN [facility]11-20-2024 Telephone encounter Note* Telephone Encounter - Alyson Barksdale RN - 2024 8:41 AM EST Patient notified. She has not had any new lesions that she noticed. Alyson Barksdale RN [facility]11-20-2024 Miscellaneous Notes* Telephone Encounter - Alyson Barksdale RN - 2024 8:41 AM EST Patient notified. She has not had any new lesions that she noticed. Alyson Barksdale RN * Telephone Encounter - Orly Holloway RN - 2024 8:32 AM EST Left message to call office. Orly Holloway RN * Telephone Encounter - Reagan Campos APRN.CNP - 2024 7:37 AM EST Culture was negative, but blood work shows positive IgM so she likely had a recent infection. Has she noticed any lesions since I saw her? Reagan Campos APRN.LORI * Telephone Encounter - Alyson Barksdale RN - 08/30/2024 2:26 PM EST Patient notified of positive trich result, not BV. Advised any sexual partner needs treatment too. She is also asking about the positive HSV blood work and what she needs to do next since the cultureof lesion was negative. Aware EH is back in office tomorrow. Alyson Barksdale RN * Telephone Encounter - Amarilis Berry APRN.CNP - 08/30/2024 2:19 PM EST BV positive. To treat with Flagyl 500mg PO BID for 7 days. 1) No alcohol during treatment and for 24 hours after last dose. 2) No intercourse during treatment. 3) Probiotic by mouth once daily for 30 days or as needed. Amarilis Berry APRN.CNP * Telephone Encounter - Ruben Vilchis RN - 08/30/2024 10:34 AM EST Pt states she saw lab results from 08/28/24 on Mychart and wanting to know what treatment consists of. Advised her message would be sent to provider metal fabrication supervisor as EH is out of office today. Please advise in E[facility] absence. Ruben Vilchis RN documented in this encounterBethesda [facility] Hospital11-20-2024 Telephone encounter Note * Telephone Encounter - Orly Holloway RN - 2024 8:32 AM EST Left message to call office. Orly Holloway RN [facility] [facility] Tele[facility] encounter Note* Telephone Encounter - Reagan Campos APRN.CNP - 2024 7:37 AM EST Culture was negative, but blood work shows positive IgM so she likely had a recent infection. Has she noticed any lesions since I saw her? Reagan Campos APRN.CNP [facility]11-19-2024 Telephone encounter Note* Telephone Encounter - Alyson Barksdale RN - 08/30/2024 2:26 PM EST Patient notified of positive trich result, not BV. Advised any sexual partner needs treatment too. She is also asking about the positive HSV blood work and what she needs to do next since the cultureof lesion was negative. Aware EH is back in office tomorrow. Alyson Barksdale RN [facility]11-19-2024 Telephone encounter Note* Telephone Encounter - Amarilis Berry APRN.CNP - 08/30/2024 2:19 PM EST BV positive. To treat with Flagyl 500mg PO BID for 7 days. 1) No alcohol during treatment and for 24 hours after last dose. 2) No intercourse during treatment. 3) Probiotic by mouth once daily for 30 days or as needed. Amarilis Berry APRN.LORI [facility]11-19-2024 Telephone encounter Note* Telephone Encounter - Ruben Vilchis RN - 08/30/2024 10:34 AM EST Pt states she saw lab results from 08/28/24 on Mychart and wanting to know what treatment consists of. Advised her message would be sent to provider metal fabrication supervisor as EH is out of office today. Please advise in EH absence. Ruben Vilchis RN [facility]11-18-2024 NoteHNO ID: [id number] Author: REAGAN CAMPOS APRN.CNP Service: ? Author Type: Nurse Practitioner Type: Progress Notes Filed: 08/29/2024 15:08 Note Text: Transplant Immunologist offered: Patient declines. Jackson Ny is a 23 year old female who presents for problem visit for STD testing and for a rash. HPI: Jackson presents for Std check and a rash that has been noticed for around 3 days. The rash is near her anus. She has tried her son's diaper cream to provide relief. She states that she is having brown vaginal discharge. Denies odor. She reports vaginal pain. No new sexual partners, but states partner was with someone else while she was healing post-. 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 LMP: 08/21/2023 (Exact Date), Implant Age at Menarche: Age at First : Age at Menopause: Guest House Manager History Comments: Sexual Activity: Yes; Male Contraception: Implant PAST MEDICAL HISTORY Diagnosis Date - Abnormal Pap smear of cervix 07/2019 LSIL - Bacterial vaginosis - Chlamydia infection 07/2019 - Exercise-induced asthma - Generalized anxiety disorder - Herpes simplex virus (HSV) infection - Infectious mononucleosis 01/2017 - Trichimoniasis PAST SURGICAL HISTORY Procedure Laterality Date - NONE FAMILY HISTORY Problem Relation Age of Onset - No Known Problems Father - No Known Problems Sister - No Known Problems Sister - No Known Problems Brother - No Known Problems Brother - No Known Problems Brother - No Known Problems Brother - No Known Problems Brother - No Known Problems Brother - No Known Problems Brother - Stroke Maternal Grandfather - other (Asthma) Other Grandparent Social History Tobacco Use - Smoking status: Former Current packs/day: 0.25 Average packs/day: 0.3 packs/day for 0.5 years (0.1 ttl pk-yrs) Types: Cigarettes - Smokeless tobacco: Never Vaping Use - Vaping status: Former Substance Use Topics - Alcohol use: No - Drug use: Not Currently Frequency: 7.0 times per week Types: Marijuana Current Outpatient Medications Medication Sig - polyethylene glycol 3350 (MIRALAX) 17 gram packet Take 1 Packet by mouth once daily. Dissolve dose in 4 - 8 ounces of liquid and take as directed. As needed for constipation. (Patient not taking: Reported on 08/29/2024) - pantoprazole DR (PROTONIX) 20 mg tablet Take 1 tablet by mouth once daily. (Patient not taking: Reported on 08/29/2024) - vit/iron fum/folic ac (-FOLIC ACID ORAL) Take 1 tablet by mouth once daily. (Patient not taking: Reported on 08/29/2024) No current facility-administered medications for this visit. Allergies As of Date: 08/29/2024 Allergen Noted Reaction AMOXICILLIN 11/24/2013 Swelling Fully Assessed 08/29/2024 REVIEW OF SYSTEMS Expanded ROS: EXAMINATION SUPERVISOR: + vaginal pain, itching, discharge, rash Allergies and current medication updated:Yes SENSITIVE EXAM: The sensitive examination was discussed with the Patient or Patient's Authorized Surgical Instruments Inspector. As applicable, any other physician, advance practice provider, medical student, or other health professional student that will be observing or involved in the sensitive examination for educational or training purposes was discussed with the Patient or Authorized Surgical Instruments Inspector. The Patient or Authorized Surgical Instruments Inspector has agreed to proceed with the sensitive examination. (Sensitive examination includes inspection and/or palpation of the breasts, pelvis, prostate and anorectal regions). EXAM: BP 102/60 Wt 170 lb 3.2 oz (77.2kg) LMP 08/21/2023 GENERAL: pleasant, female in no apparent distress HEENT: Normocephalic, atraumatic, mucus membranes moist, and no lesions CHEST: Normal inspiratory effort PELVIC: + erythema noted around clitoris and urethra, superior labia minora/vestibule normal Bartholin's glands, Mccomb's glands, no vulvar lesions, no cervical lesions, good vaginal support, + thick discharge, normal appearing perineal body and perianal region, + dermatitis noted around anus BIMANUAL: uterus normal size, shape and consistency, no adnexal masses, and non-tender NEURO: alert and oriented x3,exam grossly non-focal EXTREMITIES: normal ASSESSMENT AND PLAN: 1. Screen for STD (sexually transmitted disease) - ICD9: V74.5, ICD10: Z11.3 (primary diagnosis) - Cultures and blood work obtained 2. Vaginal discharge - ICD9: 623.5, ICD10: N89.8 3. Vaginal itching - ICD9: 698.1, ICD10: N89.8 - No lesions noted, but with erythema and pain, concerning for start of HSV infection - Culture obtained to erythematous superior labia minora - No history of genital herpes To treat accordingly. Reagan Campos APRN.UNDERGROUND UTILITY LOCATOR Medical Decision Making: Problems: Low: Acute, uncomplicated illness or injury Data: Unique test(s) ordered: 3+ Risk: Low: Low risk from testing/treatment Medical Decision Making Level: 3 - Low .[facility]11-18-[facility]24 History of Present illness Narrative* Reagan Campos APRN.UNDERGROUND UTILITY LOCATOR - 08/29/2024 2:38 PM EST Transplant Immunologist offered: Patient declines. Jackson Ny is a 23 year old female who presents for problem visit for STD testing and for a rash. HPI: Jackson presents for Std check and a rash that has been noticed for around 3 days. The rash is near her anus. She has tried her son's diaper cream to provide relief. She states that she is having brown vaginal discharge. Denies odor. She reports vaginal pain. No new sexual partners, but states partner was with someone else while she was healing post-. 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 LMP: 08/21/2023 (Exact Date), Implant Age at Menarche: Age at First : Age at Menopause: Guest House Manager History Comments: Sexual Activity: Yes; Male Contraception: Implant PAST MEDICAL HISTORY Diagnosis Date Abnormal Pap smear of cervix 07/2019 LSIL Bacterial vaginosis Chlamydia infection 07/2019 Exercise-induced asthma Generalized anxiety disorder Herpes simplex virus (HSV) infection Infectious mononucleosis 01/2017 Trichimoniasis PAST SURGICAL HISTORY Procedure Laterality Date NONE FAMILY HISTORY Problem Relation Age of Onset No Known Problems Father No Known Problems Sister No Known Problems Sister No Known Problems Brother No Known Problems Brother No Known Problems Brother No Known Problems Brother No Known Problems Brother No Known Problems Brother No Known Problems Brother Stroke Maternal Grandfather other (Asthma) Other Grandparent Social History Tobacco Use Smoking status: Former Current packs/day: 0.25 Average packs/day: 0.3 packs/day for 0.5 years (0.1 ttl pk-yrs) Types: Cigarettes Smokeless tobacco: Never Vaping Use Vaping status: Former Substance Use Topics Alcohol use: No Drug use: Not Currently Frequency: 7.0 times per week Types: Marijuana Current Outpatient Medications Medication Sig polyethylene glycol 3350 (MIRALAX) 17 gram packet Take 1 Packet by mouth once daily. Dissolve dose in 4 - 8 ounces of liquid and take as directed. As needed for constipation. (Patient not taking: Reported on 08/29/2024) pantoprazole DR (PROTONIX) 20 mg tablet Take 1 tablet by mouth once daily. (Patient not taking: Reported on 08/29/2024) vit/iron fum/folic ac (-FOLIC ACID ORAL) Take 1 tablet by mouth once daily. (Patient not taking: Reported on 08/29/2024) No current facility-administered medications for this visit. Allergies As of Date: 08/29/2024 Allergen Noted Reaction AMOXICILLIN 11/24/2013 Swelling Fully Assessed 08/29/2024 REVIEW OF SYSTEMS Expanded ROS: EXAMINATION SUPERVISOR: + vaginal pain, itching, discharge, rash Allergies and current medication updated:Yes SENSITIVE EXAM: The sensitive examination was discussed with the Patient or Patient's Authorized Surgical Instruments Inspector. As applicable, any other physician, advance practice provider, medical student, or other health professional student that will be observing or involved in the sensitive examination for educational or training purposes was discussed with the Patient or Authorized Surgical Instruments Inspector. The Patient or Authorized Surgical Instruments Inspector has agreed to proceed with the sensitive examination. (Sensitive examination includes inspection and/or palpation of the breasts, pelvis, prostate and anorectal regions). EXAM: BP 102/60 Wt 170 lb 3.2 oz (77.2kg) LMP 08/21/2023 GENERAL: pleasant, female in no apparent distress HEENT: Normocephalic, atraumatic, mucus membranes moist, and no lesions CHEST: Normal inspiratory effort PELVIC: + erythema noted around clitoris and urethra, superior labia minora/vestibule normal Bartholin's glands, Mccomb's glands, no vulvar lesions, no cervical lesions, good vaginal support, + thick discharge, normal appearing perineal body and perianal region, + dermatitis noted around anus BIMANUAL: uterus normal size, shape and consistency, no adnexal masses, and non-tender NEURO: alert and oriented x3,exam grossly non-focal EXTREMITIES: normal ASSESSMENT AND PLAN: 1. Screen for STD (sexually transmitted disease) - ICD9: V74.5, ICD10: Z11.3 (primary diagnosis) - Cultures and blood work obtained 2. Vaginal discharge - ICD9: 623.5, ICD10: N89.8 3. Vaginal itching - ICD9: 698.1, ICD10: N89.8 - No lesions noted, but with erythema and pain, concerning for start of HSV infection - Culture obtained to erythematous superior labia minora - No history of genital herpes To treat accordingly. Reagan Campos APRN.UNDERGROUND UTILITY LOCATOR Medical Decision Making: Problems: Low: Acute, uncomplicated illness or injury Data: Unique test(s) ordered: 3+ Risk: Low: Low risk from testing/treatment Medical Decision Making Level: 3 - Low . [facility] History of Present illness Narrative* Tania Ann MD - 07/22/2024 2:42 PM EDT Transplant Immunologist offered: Patient declines. Jackson Ny is a 23 year old female who presents for concerns regarding urinary frequency happened yesterday but feels better today. Denies dysuria. Pt reports not drinking much water. Denies fever. Pt reports does have pelvic pressure and vaginal discharge. Pt reports has had BV before- wonders if this is what she has. Pt reports just stopped bleeding after 11 weeks after giving . Pt reports is not sexually active at this time. Pt offers no other concerns. 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 LMP: 08/21/2023 (Exact Date), Implant Age at Menarche: Age at First : Age at Menopause: Guest House Manager History Comments: Sexual Activity: Yes; Male Contraception: Implant PAST MEDICAL HISTORY Diagnosis Date Abnormal Pap smear of cervix 07/2019 LSIL Bacterial vaginosis Chlamydia infection 07/2019 Exercise-induced asthma Generalized anxiety disorder Herpes simplex virus (HSV) infection Infectious mononucleosis 01/2017 Trichimoniasis PAST SURGICAL HISTORY Procedure Laterality Date NONE FAMILY HISTORY Problem Relation Age of Onset No Known Problems Father No Known Problems Sister No Known Problems Sister No Known Problems Brother No Known Problems Brother No Known Problems Brother No Known Problems Brother No Known Problems Brother No Known Problems Brother No Known Problems Brother Stroke Maternal Grandfather other (Asthma) Other Grandparent Social History Tobacco Use Smoking status: Former Current packs/day: 0.25 Average packs/day: 0.3 packs/day for 0.5 years (0.1 ttl pk-yrs) Types: Cigarettes Smokeless tobacco: Never Vaping Use Vaping status: Former Substance Use Topics Alcohol use: No Drug use: Not Currently Frequency: 7.0 times per week Types: Marijuana Current Outpatient Medications Medication Sig polyethylene glycol 3350 (MIRALAX) 17 gram packet Take 1 Packet by mouth once daily. Dissolve dose in 4 - 8 ounces of liquid and take as directed. As needed for constipation. pantoprazole DR (PROTONIX) 20 mg tablet Take 1 tablet by mouth once daily. vit/iron fum/folic ac (-FOLIC ACID ORAL) Take 1 tablet by mouth once daily. No current facility-administered medications for this visit. Allergies As of Date: 07/22/2024 Allergen Noted Reaction AMOXICILLIN 11/24/2013 Swelling Fully Assessed 06/24/2024 REVIEW OF SYSTEMS Abdomen: pressure no pain. Bladder: see hpi. Expanded ROS: no fever Allergies and current medication updated:Yes SENSITIVE EXAM: The sensitive examination was discussed with the Patient or Patient's Authorized Surgical Instruments Inspector. As applicable, any other physician, advance practice provider, medical student, or other health professional student that will be observing or involved in the sensitive examination for educational or training purposes was discussed with the Patient or Authorized Surgical Instruments Inspector. The Patient or Authorized Surgical Instruments Inspector has agreed to proceed with the sensitive examination. (Sensitive examination includes inspection and/or palpation of the breasts, pelvis, prostate and anorectal regions). EXAM: BP 106/60 Wt 165 lb (74.8kg) LMP 08/21/2023 GENERAL: pleasant, female in no apparent distress HEENT: Normocephalic and atraumatic NECK: full range of motion DERMATOLOGY: Normal and without lesions PELVIC: external genitalia normal, normal Bartholin's glands, urethra, Mccomb's glands, no vulvar lesions, no cervical lesions, good vaginal support, normal appearing perineal body and perianal region, small amt clear discharge coating vaginal reyna NEURO: alert and oriented x3,exam grossly non-focal EXTREMITIES: normal ASSESSMENT AND PLAN: Assessment & Plan Urinary frequency Orders: URINE CULTURE Vaginal discharge Orders: BACTERIAL VAGINOSIS NAAT Pelvic pressure in female Discussed vaginal/bladder probiotic. Will be notified if positive results. Medical Decision Making: Problems: Low: Acute, uncomplicated illness or injury Data: Unique test(s) ordered: 2 Medical Decision Making Level: 3 - Low Tania Dawson MD documented in this encounterBet[facility] History of Present illness Narrative* Mihir Albright MD - 06/24/2024 1:59 PM EDT Transplant Immunologist offered: Patient declines. VISIT Jackson Ny is a 23 year old year old here for visit. Delivery Summary: VAVD by RR on 05/07/2024 Male - Harden - 8 lb 1 oz ROS/ Recovery: Feeding: Breast feeding problems: None Menses since delivery: spotting Menstrual pattern prior to : Regular periods Marie since delivery: Not resumed Depression: denies symptoms of depression. OB Depression and Anxiety Screening- This Encounter (since 06/23/2024) Over the past 2 weeks have you felt down, depressed, or hopeless? Negative Over the past two weeks, have you felt little interest or pleasure in doing things? Negative Feeling nervous, anxious or on edge 0-Not at all Not being able to stop or control worrying 0-Not al all Anxiety Pre-Screening Total (If >/= 3 additional questions will be reviewed) 0 Emotional support: Yes Bowel symptoms: Negative for abdominal discomfort, blood in stools or black stools and change in bowel habits Abdomen: N/A Bladder symptoms: No dysuria, gross hematuria, urinary frequency, urinary urgency, or incontinence Other issues: None Last Pap: 2021 normal HPV: N/A PAST MEDICAL HISTORY Diagnosis Date Abnormal Pap smear of cervix 07/2019 LSIL Bacterial vaginosis Chlamydia infection 07/2019 Exercise-induced asthma Generalized anxiety disorder Herpes simplex virus (HSV) infection Infectious mononucleosis 01/2017 Trichimoniasis PAST SURGICAL HISTORY Procedure Laterality Date NONE FAMILY HISTORY Problem Relation Age of Onset No Known Problems Father No Known Problems Sister No Known Problems Sister No Known Problems Brother No Known Problems Brother No Known Problems Brother No Known Problems Brother No Known Problems Brother No Known Problems Brother No Known Problems Brother Stroke Maternal Grandfather other (Asthma) Other Grandparent Social History Tobacco Use Smoking status: Former Current packs/day: 0.25 Average packs/day: 0.3 packs/day for 0.5 years (0.1 ttl pk-yrs) Types: Cigarettes Smokeless tobacco: Never Vaping Use Vaping status: Former Substance Use Topics Alcohol use: No Drug use: Not Currently Frequency: 7.0 times per week Types: Marijuana PHYSICAL EXAMINATION: SENSITIVE EXAM: The sensitive examination was discussed with the Patient or Patient's Authorized Surgical Instruments Inspector. As applicable, any other physician, advance practice provider, medical student, or other health professional student that will be observing or involved in the sensitive examination for educational or training purposes was discussed with the Patient or Authorized Surgical Instruments Inspector. The Patient or Authorized Surgical Instruments Inspector has agreed to proceed with the sensitive examination. (Sensitive examination includes inspection and/or palpation of the breasts, pelvis, prostate and anorectal regions). Wt 163 lb (73.9kg) LMP 08/21/2023 GENERAL: pleasant, female in no apparent distress HEENT: Normocephalic, atraumatic, mucus membranes moist, and no lesions NECK: Supple, full range of motion, no adenopathy, and thyroid normal DERMATOLOGY: Normal, without lesions, non-icteric, and non-hirsute BREAST: soft, non-tender, symmetric, no dominant mass, normal nipple-areolar complex, no lymphadenopathy, and no nipple discharge CHEST: Normal inspiratory effort ABDOMEN: soft, non-tender, and no masses. INCISION: N/A PELVIC: external genitalia normal, normal Bartholin's glands, urethra, Mccomb's glands, no vulvar lesions, no cervical lesions, good vaginal support, scant blood present, normal appearing perineal body and perianal region BIMANUAL: uterus normal size, shape and consistency, no adnexal masses, and non-tender NEURO: alert and oriented x3,exam grossly non-focal EXTREMITIES: normal ASSESSMENT AND PLAN: 23 year old status post Vacuum with normal course. and course complicated by preeclampsia. Contraception plan: Nexplanon Follow up: Pap today Cardiology consult for h/o preE. Will stop labetalol. Mihir Albright MD documented in this encounterBet[facility] Hospital09-[facility]24 Telephone encounter Note * Telephone Encounter - Alyson Barksdale RN - 06/14/2024 12:15 PM EDT Patient notified. Alyson Barksdale RN The following approved medication requests have been transmitted electronically. Requested Prescriptions Signed Prescriptions Disp Refills valACYclovir (VALTREX) 1 gram tablet 4 tablet 2 Sig: Take 2 tablets by mouth two times a day for 1 day. Authorizing Provider: BINTA CARCAMO Pharmacy Information Pharmacy Address Telephone [place] [id number] [place] [address] [facility]09-03-2024 Miscellaneous Notes* Telephone Encounter - Alyson Barksdale RN - 06/14/2024 12:15 PM EDT Patient notified. Alyson Barksdale RN The following approved medication requests have been transmitted electronically. Requested Prescriptions Signed Prescriptions Disp Refills valACYclovir (VALTREX) 1 gram tablet 4 tablet 2 Sig: Take 2 tablets by mouth two times a day for 1 day. Authorizing Provider: BINTA CARCAMO Pharmacy Information Pharmacy Address Telephone [place] [id number] [place] [phone] * Telephone Encounter - Binta Carcamo APRN.CNM - 06/14/2024 12:06 PM EDT Recommend Valacyclovir 2 grams PO BID for one day. 2 refills. If recurring may need suppressive therapy. Binta Carcamo APRN.CNM * Telephone Encounter - Alyson Barksdale RN - 06/14/2024 11:14 AM EDT Patient of CP. 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 Asking for refill of acyclovir. Only call back if not given. This was last prescribed by CP 07/06/23 at annual exam. Requested Prescriptions Pending Prescriptions Disp Refills acyclovir (ZOVIRAX) 400 mg tablet 15 tablet 0 Sig: Take 1 tablet by mouth three times a day for 5 days. Alyson Barksdale RN documented in this encounterBethesda [facility] Hospital09-03-2024 Telephone encounter Note * Telephone Encounter - Binta Carcamo APRN.CNM - 06/14/2024 12:06 PM EDT Recommend Valacyclovir 2 grams PO BID for one day. 2 refills. If recurring may need suppressive therapy. Binta Carcamo APRN.CNM [facility]09-03-2024 Telephone encounter Note* Telephone Encounter - Alyson Barksdale RN - 06/14/2024 11:14 AM EDT Patient of CP. 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 Asking for refill of acyclovir. Only call back if not given. This was last prescribed by CP 07/06/23 at annual exam. Requested Prescriptions Pending Prescriptions Disp Refills acyclovir (ZOVIRAX) 400 mg tablet 15 tablet 0 Sig: Take 1 tablet by mouth three times a day for 5 days. Alyson Barksdale, AUDRA [facility]08-05-2024 History of Present illness Narrative* Berta Eldridge APRN.CNM - 05/16/2024 4:04 PM EDT EARLY VISIT Jackson Ny is a 23 year old here for 1 week visit. Currently monitoring blood pressures at home. Has had some elevated to 150's /100. Trying to "remember to take BP medications". Denies any headaches, vision changes, SOB or CP. Delivery Summary: VAVD by RR on 05/07/2024 Male - Harden - 8 lb 1 oz ROS: General: Denies any fever or chills Hypertension Screening: Headache? No. Visual Changes? No Epigastric Pain? No Increased Swelling? No Taking any BP medications at home? Yes If applicable, monitoring BP at home? (If Yes, include results) Yes / 138/102 Mood: normal Depression: denies symptoms of depression. OB Depression and Anxiety Screening- This Encounter (since 05/15/2024) Over the past 2 weeks have you felt down, depressed, or hopeless? Positive - Further Testing Indicated Over the past two weeks, have you felt little interest or pleasure in doing things? Negative I have been able to laugh and see the funny side of things. As much as I always could I have looked forward with enjoyment to things. As much as I ever did I have blamed myself unnecessarily when things went wrong. No, never I have been anxious or worried for no good reason. No, not at all I have felt scared or panicky for no good reason. No, not at all Things have been getting on top of me. No, most of the time I have coped quite well I have been so unhappy that I have had difficulty sleeping. Not at all I have felt sad or miserable. Not very often I have been so unhappy that I have been crying. No, never The thought of harming myself has occurred to me. Never [place] Depression Scale Total 2 Feeling nervous, anxious or on edge 0-Not at all Not being able to stop or control worrying 0-Not al all Anxiety Pre-Screening Total (If >/= 3 additional questions will be reviewed) 0 Feeding: Breast feeding problems: None Bladder: No dysuria, gross hematuria, urinary frequency, urinary urgency, or incontinence Bowel symptoms: Negative for abdominal discomfort, blood in stools or black stools Abdomen: N/A Bleeding: medium flow Bottom and Perineum: No issues Sleep: no sleep concerns, feels rested Marie since delivery: Not resumed Emotional support: Yes Exercise: N/A Other issues: None PHYSICAL EXAMINATION: BP 128/86 Wt 77.1 kg (170 lb) LMP 08/21/2023 (Exact Date) Yes BMI 27.44 kg/m General: pleasant,female in no apparent distress, A&O x 3. Skin warm and intact. Breast: Deferred Abdomen: Deferred /Incision: N/A Pelvic: Deferred Bimanual: Deferred ASSESSMENT AND PLAN: 23 year old status post Vacuum with course complicated by elevated blood pressures Continue Labetalol 200 mg BID- Refill sent. BP parameters to report >160/100 or symptomatic Follow up: 3-4 weeks or as needed Berta Eldridge APRN.CNM documented [facility] Telephone encounter Note * Telephone Encounter - Karina Manning RN - 05/13/2024 1:30 PM EDT Patient notified. Has PP BP check scheduled for Thursday. Karina Manning RN [facility] Miscellaneous Notes* Telephone Encounter - Karina Manning RN - 05/13/2024 1:30 PM EDT Patient notified. Has PP BP check scheduled for Thursday. Karina Manning RN * Telephone Encounter - Berta Eldridge APRN.CNM - 05/13/2024 1:20 PM EDT She should be taking the Labetalol twice daily. Give it some time to work since she just started. Follow up early next week and continue to monitor BP at home. Call if any readings >160/110. Berta Eldridge APRN.CNM * Telephone Encounter - Karina Manning RN - 05/13/2024 11:51 AM EDT Post calling with updated blood pressures. Her BP was 165/108 prior to Labetalol and now 150/80. Has a mild MATHUR. Pain rate of 4. Denies vision changes. Patient was seen in office on 05/11. Asking if she needs her Labetalol dose increased. This was suggested by Romina from [facility] (blood pressure program). Karina Manning RN documented in this encounterBet[facility]08-[facility] Telephone encounter Note * Telephone Encounter - Berta Eldridge APRN.CNM - 05/13/2024 1:20 PM EDT She should be taking the Labetalol twice daily. Give it some time to work since she just started. Follow up early next week and continue to monitor BP at home. Call if any readings >160/110. Berta Eldridge APRN.CNM [facility]08-02-[facility] Telephone encounter Note* Telephone Encounter - Karina Manning RN - 05/13/2024 11:51 AM EDT Post calling with updated blood pressures. Her BP was 165/108 prior to Labetalol and now 150/80. Has a mild MATHUR. Pain rate of 4. Denies vision changes. Patient was seen in office on 05/11. Asking if she needs her Labetalol dose increased. This was suggested by Romina from [facility] (blood pressure program). Karina Manning, RN [facility]07-31[facility] History of Present illness Narrative* Berta Eldridge APRN.CNM - 05/11/2024 2:15 PM EDT EARLY VISIT Jackson Ny is a 23 year old here for 5 days BP check Blood pressures readings at home: 159/98, 159/87 with machine given from hospital Here in office- 130/88 Has Rx for Labetalol 200 mg PO BID- patient to start taking today Delivery Summary: VAVD by RR on 05/07/2024 Male - Harden - 8 lb 1 oz ROS: General: Denies any fever or chills Hypertension Screening: Headache? Yes. Was it successfully treated with Tylenol? Not needed, very mild Visual Changes? No Epigastric Pain? No Increased Swelling? Yes, feet and ankles Taking any BP medications at home? Yes, Labetalol if needed If applicable, monitoring BP at home? (If Yes, include results) Yes / 159/87 (unsure if machine is accurate) Mood: normal Depression: denies symptoms of depression. OB Depression and Anxiety Screening- This Encounter (since 05/10/2024) Over the past 2 weeks have you felt down, depressed, or hopeless? Negative Over the past two weeks, have you felt little interest or pleasure in doing things? Negative Feeling nervous, anxious or on edge 0-Not at all Not being able to stop or control worrying 0-Not al all Anxiety Pre-Screening Total (If >/= 3 additional questions will be reviewed) 0 Feeding: Breast feeding problems: None Bladder: No dysuria, gross hematuria, urinary frequency, urinary urgency, or incontinence Bowel symptoms: Negative for abdominal discomfort, blood in stools or black stools Abdomen: N/A Bleeding: medium flow Bottom and Perineum: No issues Sleep: no sleep concerns, feels rested Marie since delivery: Not resumed Emotional support: Yes Exercise: N/A Other issues: None PHYSICAL EXAMINATION: LMP 08/21/2023 (Exact Date) General: pleasant,female in no apparent distress, A&O x 3. Skin warm and intact. Breast: Deferred Abdomen: Deferred /Incision: N/A Pelvic: Deferred Bimanual: Deferred ASSESSMENT AND PLAN: 23 year old status post Vacuum with elevated blood pressures post Start Labetalol 200 mg PO BID today Continue to monitor BP at home and report any results of >160/110 Patient to call Romina and get new BP machine due to incorrect results Pre-e precautions reviewed Follow up: 1 week for BP check and to follow up on Labetalol medication Berta Eldridge APRN.CNM documented in this encounterBet[facility]07-31-[facility]24 Telephone encounter Note * Telephone Encounter - Karina Manning RN - 05/11/2024 1:08 PM EDT Appointment with CP scheduled at 3:10 PM. Karina Manning RN [facility] Miscellaneous Notes* Telephone Encounter - Karina Manning RN - 05/11/2024 1:08 PM EDT Appointment with CP scheduled at 3:10 PM. Karina Manning, RN * Telephone Encounter - Urban Burnett MD - 05/11/2024 12:31 PM EDT received call from [facility], patient getting home BP readings elevated. Was d/dang yesterday after havinghad preeclampsia w/ severe features. Had magnesioum in labor and 24 hrs PP. BP low yesterday, has rx for labetalol but was told to hold it. There is some suspicion that her cuff is reading higher than the one at the hospital was. Recommend patient come in today for blood pressure check in our office and to compare her home machine with our machine and readings so we can see where she is at. Also whether or not she needs to start the labetalol. Patient instructed to come in with Berta guzman today at 3 PM for blood pressure check Urban Burnett MD documented in this encounterBethes[facility] Hospital07-31-2024 Telephone encounter Note * Telephone Encounter - Urban Burnett MD - 05/11/2024 12:31 PM EDT received call from [facility], patient getting home BP readings elevated. Was d/dang yesterday after havinghad preeclampsia w/ severe features. Had magnesioum in labor and 24 hrs PP. BP low yesterday, has rx for labetalol but was told to hold it. There is some suspicion that her cuff is reading higher than the one at the hospital was. Recommend patient come in today for blood pressure check in our office and to compare her home machine with our machine and readings so we can see where she is at. Also whether or not she needs to start the labetalol. Patient instructed to come in with Berta guzman today at 3 PM for blood pressure check Urban Burnett MD [facility] Work Phone: 1(307) 578-499907-29-2024 History of Present illness Narrative* Alyson Barksdale RN - 05/09/2024 9:26 AM EDT Patient delivered via VAVD by Dr. Burnett on 05/07/24 at [facility]. See OB history. Alyson Barksdale RN documented in this encounterBethesda [facility] Hospital07-26-2024 History of Present illness Narrative* Urban Burnett MD - 05/06/2024 2:11 PM EDT TruBP Readings: 144/97 145/96 146/99 138/97 145/95 Average: 144/97 TO L&D for NST and preeclampsia eval. Urban Burnett MD documented in this encounterBethesda North Hospital07-26-2024 Instructions* Patient Instructions* Harika Galindo MA - 05/06/2024 1:53 PM EDT SEQUENTIAL SCREENINGS [facility] offers sequential screenings for women who are interested in screenings for chromosomal abnormalities and certain defects during a . The sequential screen combinesultrasound and blood tests to determine the risk of chromosomal abnormalities, including Down's Syndrome (Trisomy 21) and Trisomy 18, as well as open neural tube defects including spina bifida. Ultrasound examination is performed between 11 weeks and 13 weeks gestational age. Blood tests are drawn after the ultrasound and again later in the between 15 and 21 weeks gestational age. Please let your physician know if you are interested in this testing. It will require an appointment withour wound care technician. This is not an ultrasound performed by a physician in our office during a routine visit. SIGNS AND SYMPTOMS OF LABOR 1. Contractions every 10 minutes or more often 2. Clear, pink, or brownish fluid (water) leaking from vagina 3. Feeling that baby is pushing down, pressure 4. Low, dull backache 5. Cramps that feel like a period 6. Cramps with or without diarrhea If you notice any of the above symptoms, contact our office at [phone] and ask to speak with anurse. After hours, you can call doctors registry at [phone] OR call [facility] at [phone] ask to have the doctor metal fabrication supervisor paged. If you consider this an emergency, dial 9-1- or go to your nearest emergency department. NEED HELP? Are you dealing with a violent or abusive relationship? Are you a victim of rape or sexual assult? Call [facility] ([place]) 24 hour Crisis Hotline: 630.452.3387 or 473-427-9082. MANUAL Your Guide to a Healthy manual is now on-line. Visit [email or web address] to download your free copy documented in this encounterBethesda North Hospital07-19-2024 History of Present illness Narrative* Valentine Rojas PA - 04/29/2024 4:43 PM EDT This note was created using NoteWriter. Subjective Jackson Ny is a 23 year old female. HPI 23 year old female 36 weeks presents for bilateral ear popping, occasional pain x 1 week. Mild nasal congestion. No cough, no fever or chills. No N/V/D. Still eating and drinking. Normalfetal movement. No vaginal bleeding. No other complaint. PAST MEDICAL HISTORY Diagnosis Date Abnormal Pap smear of cervix 07/2019 LSIL Bacterial vaginosis Chlamydia infection 07/2019 Exercise-induced asthma Generalized anxiety disorder Herpes simplex virus (HSV) infection Infectious mononucleosis 01/2017 Trichimoniasis PAST SURGICAL HISTORY Procedure Laterality Date NONE ALLERGIES Amoxicillin MEDICATIONS docusate sodium (COLACE) 100 mg capsule Take 1 capsule by mouth two times a day. polyethylene glycol 3350 (MIRALAX) 17 gram packet Take 1 Packet by mouth once daily. Dissolve dose in 4 - 8 ounces of liquid and take as directed. As needed for constipation. ferrous sulfate 325 mg (65 mg iron) EC tablet Take [address] mg [address] mouth. [address]oprazole [address] (PROTONIX) 20 mg tablet Take 1 tablet by mouth once daily. aspirin, enteric coated (ECOTRIN LOW STRENGTH) 81 mg EC tablet Take 2 tablets by mouth once daily. vit/iron fum/folic ac (-FOLIC ACID ORAL) Take 1 tablet by mouth once daily. FAMILY HISTORY Problem Relation Age of Onset No Known Problems Father No Known Problems Sister No Known Problems Sister No Known Problems Brother No Known Problems Brother No Known Problems Brother No Known Problems Brother No Known Problems Brother No Known Problems Brother No Known Problems Brother Stroke Maternal Grandfather other (Asthma) Other Grandparent Social History Tobacco Use Smoking status: Former Packs/day: 0.25 Years: 0.50 Additional pack years: 0.00 Total pack years: 0.13 Types: Cigarettes Smokeless tobacco: Never Vaping Use Vaping Use: Former Substance Use Topics Alcohol use: No Drug use: Not Currently Frequency: 7.0 times per week Types: Marijuana Review of Systems Constitutional: Negative for chills and fever. HENT: Positive for congestion and ear pain. Negative for sore throat. Respiratory: Negative for cough and shortness of breath. Cardiovascular: Negative for chest pain. Gastrointestinal: Negative for diarrhea and vomiting. Objective BP 132/84 Pulse 104 Temp 37.1 C (98.8 F) Resp 16 Wt 90 kg (198 lb 6.6 oz) LMP 08/21/2023 (Exact Date) SpO2 97% BMI 32.02 kg/m Physical Exam Vitals and nursing note reviewed. Constitutional: General: She is not in acute distress. Appearance: Normal appearance. She is not toxic-appearing. HENT: Right Ear: Ear canal normal. A middle ear effusion is present. Left Ear: Ear canal normal. A middle ear effusion is present. Ears: Comments: Clear fluid behind TM bilaterally. No erythema. Nose: Nose normal. Mouth/Throat: Mouth: Mucous membranes are moist. Pharynx: Oropharynx is clear. Uvula midline. No posterior oropharyngeal erythema. Tonsils: No tonsillar exudate. Eyes: Conjunctiva/sclera: Conjunctivae normal. Cardiovascular: Rate and Rhythm: Normal rate and regular rhythm. Pulmonary: Effort: Pulmonary effort is normal. Breath sounds: Normal breath sounds. Skin: General: Skin is warm and dry. Neurological: Mental Status: She is alert. Assessment and Plan ASSESSMENT/PLAN: 1. Eustachian tube dysfunction, bilateral - ICD9: 381.81, ICD10: H69.93 - Flonase once daily. Follow up if symptoms persist. - No signs of infection on exam today. Diagnosis and treatment plan were discussed and questions were answered to the patient's satisfaction. Pt acknowledged understanding of concepts and follow up plan. Specific signs and symptoms that would indicate the need for higher level of care were discussed in detail warranting prompt ER evaluation. KATE Latham documented in this encounterBethesda [facility] Hospital07-19-2024 Note Indication Evaluation of growth. Evaluation of well-being .Large for gestational age Decreased movements Impression REMOTE READ - Single, live, intrauterine . - The biometry is advanced for the assigned gestational dating. - The EFW is 3502 g, at the 97%. AC is at the >99%. - The amniotic fluid volume is normal amount with an MVP of 5.2 cm and an MARIA EUGENIA of 16.9 cm - The placenta is posterior, fundal. - BPP 05/19. - No malformations visualized on a limited survey as detailed below. Recommendations Continue testing if persistent subjective decrease in movement Additional follow-up as clinically indicated. Maternal Assessment Height 168 cm Height (ft) 5 ft Height (in) 6 in Physical Exam Initial weight (lb) 142 lb Initial BMI 22.92 kg/m Method Transabdominal ultrasound examination [place] . Number of fetuses: 1 Dating LMP on: 08/21/2023 GA by LMP 36 w + 0 d SUSAN by LMP: 05/27/2024 GA by prior assessment 36 w + 0 d SUSAN by prior assessment: 05/27/2024 Ultrasound examination on: 04/29/2024 GA by U/S based upon: AC, BPD, Femur, HC GA by U/S 36 w + 6 d SUSAN by U/S: 05/21/2024 Assigned: based on stated SUSAN, selected on 04/01/2024 Assigned GA 36 w + 0 d Assigned SUSAN: 05/27/2024 General Evaluation Cardiac activity present. FHR 150 bpm. movements: present. Presentation: cephalic Placenta: Placental site: posterior, fundal Umbilical cord: Cord vessels: 3 vessel cord Amniotic fluid: Amount of AF: normal amount. MVP 5.2 cm. MARIA EUGENIA 16.9 cm. Q1 3.5 cm, Q2 4.7 cm, Q3 5.2 cm, Q4 3.5 cm Biophysical Profile 2: breathing movements 2: Gross body movements 2: tone 2: Amniotic fluid volume 05/19 Biophysical profile score Growth Overview Exam date GA BPD (mm) HC (mm) AC (mm) FL (mm) HL (mm) EFW (g) 01/05/2024 19w 4d 49 92% 184.2 84% 167.3 96% 32.2 79% 30.9 77% 388 98% 04/01/2024 32w 0d 86.6 98% 311.4 83% 305.1 97% 62.9 78% 2311 92% 04/29/2024 36w 0d 90.4 75% 322.1 42% 369.5 >99% 68 50% 3502 97% Biometry Standard BPD 90.4 mm 36w 4d 75% Hadlock OFD 112.6 mm 34w 4d 39% Nicolaides HC 322.1 mm 35w 4d 42% Michael AC 369.5 mm 40w 6d >99% Hadlock Femur 68.0 mm 34w 4d 50% Michael EFW 3,502 g 39w 3d 97% Hadlock EFW (lb) 7 lb EFW (oz) 12 oz EFW by: Hadlock (HC-AC-FL) Extended Unit Tender 4.1 mm Extremities / Bony Struc FL / HC 0.21 Other Structures FHR 150 bpm Anatomy Lateral ventricles: normal Cavum septi pellucidi: normal Cerebellum: normal Cisterna magna: normal 4-chamber view: normal RVOT view: normal LVOT view: normal 3-vessel view: normal Heart / Thorax Situs: situs solitus (normal) Diaphragm: normal Stomach: normal Kidneys: normal Bladder: normal sex: male Wants to know sex: yes Performed By: Nancy Shin RDMS Read By: Cynthia Farooq M.D.MATERNAL [id number] Miscellaneous Notes* Quick Notes - Reagan Campos APRN.UNDERGROUND UTILITY LOCATOR - 04/29/2024 2:45 PM EDT EH - S: Giorgio is a 23 year old female who presents at 36w0d for a routine visit. Feels that movement is decreased today. Denies headache, visual changes, chest pain, shortness of breath, vaginal bleeding, leakage of fluid, or dysuria. Thinks she may have an ear infection. Experiencing some carpal tunnel and swelling to legs. O: See flow sheet Gen: No apparent distress Abd: Gravid, nontender, S=D ASSESSMENT/PLAN: 1. Encounter for supervision of high risk in third trimester, antepartum - ICD9: V23.9, ICD10: O09.93 (primary diagnosis) - Continues to go to 180 for counseling and management of prior drug use - Compression socks for bilateral leg swelling - Braces for carpal tunnel symptoms 2. 36 weeks gestation of - ICD9: V22.2, ICD10: Z3A.36 - GBS today 3. Anemia during in third trimester - ICD9: 648.23, ICD10: O99.013 - Improved to 11.2 4. Excessive growth affecting management of in third trimester, single or unspecified fetus - ICD9: 656.63, ICD10: O36.63X0 - 04/04/24: EFW 92%, AC 97% and MARIA EUGENIA 17.5 @ 32 weeks. - Repeat growth today, report pending 5. Tobacco smoking complicating in third trimester - ICD9: 649.03, ICD10: O99.333 - Cessation encouraged, written info on risks provided via patient instructions - Vaping instead of smoking 6. Decreased movements in third trimester, single or unspecified fetus - ICD9: 655.73, ICD10:O36.8130 - Reviewed kick counts - Will add BPP on to growth today -- 05/19 on BPP today - BIOPHYSICAL PROFILE US WHI To see PCP for ear infection. PTL precautions and kick counts reviewed. To notify with any further decreased movement. RTO in 1 week or sooner as needed. Reagan Campos APRN.LORI documented in this encounterBethesda [facility] Hospital07-19-2024 Progress note* Quick Notes - Reagan Campos APRN.CNP - 04/29/2024 2:45 PM EDT EH - S: Giorgio is a 23 year old female who presents at 36w0d for a routine visit. Feels that movement is decreased today. Denies headache, visual changes, chest pain, shortness of breath, vaginal bleeding, leakage of fluid, or dysuria. Thinks she may have an ear infection. Experiencing some carpal tunnel and swelling to legs. O: See flow sheet Gen: No apparent distress Abd: Gravid, nontender, S=D ASSESSMENT/PLAN: 1. Encounter for supervision of high risk in third trimester, antepartum - ICD9: V23.9, ICD10: O09.93 (primary diagnosis) - Continues to go to 180 for counseling and management of prior drug use - Compression socks for bilateral leg swelling - Braces for carpal tunnel symptoms 2. 36 weeks gestation of - ICD9: V22.2, ICD10: Z3A.36 - GBS today 3. Anemia during in third trimester - ICD9: 648.23, ICD10: O99.013 - Improved to 11.2 4. Excessive growth affecting management of in third trimester, single or unspecified fetus - ICD9: 656.63, ICD10: O36.63X0 - 04/04/24: EFW 92%, AC 97% and MARIA EUGENIA 17.5 @ 32 weeks. - Repeat growth today, report pending 5. Tobacco smoking complicating in third trimester - ICD9: 649.03, ICD10: O99.333 - Cessation encouraged, written info on risks provided via patient instructions - Vaping instead of smoking 6. Decreased movements in third trimester, single or unspecified fetus - ICD9: 655.73, ICD10:O36.8130 - Reviewed kick counts - Will add BPP on to growth today -- 05/19 on BPP today - BIOPHYSICAL PROFILE US I To see PCP for ear infection. PTL precautions and kick counts reviewed. To notify with any further decreased movement. RTO in 1 week or sooner as needed. Reagan Campos APRN.UNDERGROUND UTILITY LOCATOR [facility] Instructions* Patient Instructions* Reagan Campos APRN.UNDERGROUND UTILITY LOCATOR - 04/29/2024 2:32 PM EDT How SMOKING Affects Your and Your Baby During Smoking during affects you and your baby's health before, during and after your baby is born. The nicotine (the addictive substance in cigarettes), carbon monoxide and numerous other poisons you inhale from a cigarette are carried through your bloodstream and go directly to your baby. Smoking while will: Lower the amount of oxygen available to you and your growing baby Increase your baby's heart rate Increase the chances of miscarriage and stillbirth Increase the risk that your baby is born prematurely and/or born with low weight Increase your baby's risk of developing respiratory problems The more cigarettes you smoke per day, the greater your baby's chances of developing these and other health problems. There is no "safe" level of smoking for your baby's health. How does secondhand smoke affect me and my baby? Second-hand smoke (also called passive smoke or environmental tobacco smoke) is the combination of smoke from a burning cigarette and smoke exhaled by a smoker. The smoke that abbasi off the end of a cigarette or cigar contains more harmful substances ( tar, carbon monoxide, nicotine and others) than the smoke inhaled by the smoker. If you are regularly exposed to second-hand smoke, you increase your and your baby's risk of developing lung cancer, heart disease, emphysema, allergies, asthma and other health problems. Babies exposed to second-hand smoke may also develop reduced lung capacity and are at higher risk for sudden infant syndrome (SIDS). What happens if I keep smoking after my baby is born? If you continue to smoke after your baby is born, you increase his or her chance of developing certain illnesses and problems, such as: Frequent colds Bronchitis and pneumonia Asthma Chronic coughs Ear infections High blood pressure Learning and behavior problems later in childhood Why should I quit smoking? Smoking is the leading cause of preventable in the [place] By quitting you can: Prolong your life Lower your risk of heart disease Lower your risk of developing lung, throat, mouth, pancreatic and bladder cancer Lower your risk of developing breathing problems such as chronic obstructive pulmonary disease (COPD), asthma and emphysema Lower your risk of developing allergies Raise your energy level Improve your appearance; your skin will wrinkle less and look better, and your fingers and teeth will not be yellow Improve your sense of smell and taste Feel healthier overall, with improved self-esteem Save a lot of money (the average smoker spends $740 a year for cigarettes!) How can I quit smoking? There is no one way to quit smoking that works for everyone, since each person has different smoking habits. Here are some tips: Hide your matches, lighters, and ashtrays. Take a deep breath and hold it for five to ten seconds whenever you get the urge to smoke. Designate your home a non-smoking area. Ask people who smoke not to smoke around you. Drink less caffeinated beverages; caffeine may stimulate your urge to smoke. Also avoid alcohol, asit also may increase your urge to smoke and can be harmful to your baby. Change your habits connected with smoking. If you smoked while driving or when feeling stressed, try other activities to replace smoking. Keep mints or gum (preferably sugarless) on hand for those times when you get the urge to smoke. Stay active to keep your mind off smoking and help relieve tension: take a walk, exercise, read a book or try a new a hobby. Look for support from others. Join a support group or smoking cessation program, such as the [facility] Smoking Cessation Program. For more information, please call . Do not go places where many people are smoking such as bars or clubs, and smoking sections of restaurants. Should I use a nicotine replacement to help me quit? Nicotine gum and patches release nicotine into the bloodstream of the smoker who is trying to quit.Although these products can reduce withdrawal symptoms and decrease cravings in smokers who are trying to quit, nicotine is quite toxic and potentially harmful to the fetus (as well as to the infant who is ). Therefore, these and any other products containing nicotine are not always ecommended for the woman who is trying to quit smoking. They may be prescribed in indivdual cases. How will I feel when I quit? The benefits of not smoking start within days of quitting. After you quit, you and your baby's heart beat will return to normal, and your baby will be less likely to develop breathing problems. You may have symptoms of withdrawal because your body is used to nicotine, the addictive substance in cigarettes. You may crave cigarettes, be irritable, feel very hungry, cough often, get headaches or have difficulty concentrating. The withdrawal symptoms are only temporary. They are strongest when you first quit but will go awaywithin 10 to 14 days. When withdrawal symptoms occur, stay in control. Think about your reasons forquitting. Remind yourself that these are signs that your body is healing and getting used to being without cigarettes. Remember that withdrawal symptoms are easier to treat than the major diseases that smoking can cause. Even after the withdrawal is over, expect periodic urges to smoke. However, these cravings are generally short-lived and will go away whether you smoke or not. Don't Smoke! If you smoke again (called a relapse) do not lose hope. Seventy-five percent of those who quit relapse. Most smokers quit three times before they are successful. If you relapse, don't give up! Plan ahead and think about what you will do next time you get the urge to smoke. (This information is provided by the [facility] and is not intended to replace the medical advice of your doctor or health care provider. Please consult your health care provider for advice about a specific medical condition. For additional written health information, please call the Cancer Answer Line at [facility] [place] Thursday - Thursday 8-4:30 for assistance: [phone]. Or [email or web address] SEQUENTIAL SCREENINGS The [facility] offers sequential screenings for women who are interested in screenings for chromosomal abnormalities and certain defects during a . The sequential screen combinesultrasound and blood tests to determine the risk of chromosomal abnormalities, including Down's Syndrome (Trisomy 21) and Trisomy 18, as well as open neural tube defects including spina bifida. Ultrasound examination is performed between 11 weeks and 13 weeks gestational age. Blood tests are drawn after the ultrasound and again later in the between 15 and 21 weeks gestational age. Please let your physician know if you are interested in this testing. It will require an appointment withour wound care technician. This is not an ultrasound performed by a physician in our office during a routine visit. SIGNS AND SYMPTOMS OF LABOR 1. Contractions every 10 minutes or more often 2. Clear, pink, or brownish fluid (water) leaking from vagina 3. Feeling that baby is pushing down, pressure 4. Low, dull backache 5. Cramps that feel like a period 6. Cramps with or without diarrhea If you notice any of the above symptoms, contact our office at [phone] and ask to speak with anurse. After hours, you can call doctors registry at [phone] OR call [facility] at [phone] ask to have the doctor metal fabrication supervisor paged. If you consider this an emergency, dial 9-3 or go to your nearest emergency department. NEED HELP? Are you dealing with a violent or abusive relationship? Are you a victim of rape or sexual assult? Call [facility] ([place]) 24 hour Crisis Hotline: 314.726.2068 or 891-652-1876. MANUAL Your Guide to a Healthy manual is now on-line. Visit [email or web address] to download your free copy documented in this encounterBethesda North Hospital07-09-2024 Progress note* Quick Notes - Binta Carcamo APRN.CNM - 04/19/2024 3:01 PM EDT ALYX- S: Jackson Ny is a 23 year old female who presents at 34w4d with SUSAN:05/27/2024, Alternate EDDEntry for a problem visit. Denies chest pain, shortness of breath, vaginal bleeding, leakage of fluid, or dysuria. Walked about 3 blocks today in the heat then drank body armour. Increased swelling and went to [employer] and BP was 137/90 and repeat 140/92.Slight headache earlier but resolved and no scotoma or other symptoms. O: See flow sheet Gen: No apparent distress Abd: Gravid, nontender Ext: +2/4 bilateral patellar, no clonus Joshua BP 122/82. ASSESSMENT/PLAN: 1. Supervision of high risk in third trimester -No signs of preeclampsia. Baseline labs today and reviewed when to call. - URINE OB DIP B/O - COMPLETE BLOOD COUNT AND DIFFERENTIAL - COMPREHENSIVE METABOLIC PANEL - URIC ACID - PROTEIN / CREATININE RATIO 2. 34 weeks gestation of 3. Anemia during in third trimester 4. Elevated BP without diagnosis of hypertension - COMPLETE BLOOD COUNT AND DIFFERENTIAL - COMPREHENSIVE METABOLIC PANEL - URIC ACID - PROTEIN / CREATININE RATIO -PTL precautions reviewed. Binta Carcamo APRN.CNM [facility]07-09-2024 Miscellaneous Notes* Quick Notes - Binta Carcamo APRN.CNM - 04/19/2024 3:01 PM EDT ALYX- S: Jackson Ny is a 23 year old female who presents at 34w4d with SUSAN:05/27/2024, Alternate EDDEntry for a problem visit. Denies chest pain, shortness of breath, vaginal bleeding, leakage of fluid, or dysuria. Walked about 3 blocks today in the heat then drank body armour. Increased swelling and went to [facility] and BP was 137/90 and repeat 140/92.Slight headache earlier but resolved and no scotoma or other symptoms. O: See flow sheet Gen: No apparent distress Abd: Gravid, nontender Ext: +2/4 bilateral patellar, no clonus Joshua BP 122/82. ASSESSMENT/PLAN: 1. Supervision of high risk in third trimester -No signs of preeclampsia. Baseline labs today and reviewed when to call. - URINE OB DIP B/O - COMPLETE BLOOD COUNT AND DIFFERENTIAL - COMPREHENSIVE METABOLIC PANEL - URIC ACID - PROTEIN / CREATININE RATIO 2. 34 weeks gestation of 3. Anemia during in third trimester 4. Elevated BP without diagnosis of hypertension - COMPLETE BLOOD COUNT AND DIFFERENTIAL - COMPREHENSIVE METABOLIC PANEL - URIC ACID - PROTEIN / CREATININE RATIO -PTL precautions reviewed. Binta Carcamo APRN.CNM documented in this encounterBethesda North Hospital07-09-2024 Instructions* Patient Instructions* Quinn De La O MA - 04/19/2024 2:28 PM EDT SEQUENTIAL SCREENINGS The [facility] offers sequential screenings for women who are interested in screenings for chromosomal abnormalities and certain defects during a . The sequential screen combinesultrasound and blood tests to determine the risk of chromosomal abnormalities, including Down's Syndrome (Trisomy 21) and Trisomy 18, as well as open neural tube defects including spina bifida. Ultrasound examination is performed between 11 weeks and 13 weeks gestational age. Blood tests are drawn after the ultrasound and again later in the between 15 and 21 weeks gestational age. Please let your physician know if you are interested in this testing. It will require an appointment withour wound care technician. This is not an ultrasound performed by a physician in our office during a routine visit. SIGNS AND SYMPTOMS OF LABOR 1. Contractions every 10 minutes or more often 2. Clear, pink, or brownish fluid (water) leaking from vagina 3. Feeling that baby is pushing down, pressure 4. Low, dull backache 5. Cramps that feel like a period 6. Cramps with or without diarrhea If you notice any of the above symptoms, contact our office at [phone] and ask to speak with anurse. After hours, you can call doctors registry at [phone] OR call [facility] at [phone] ask to have the doctor metal fabrication supervisor paged. If you consider this an emergency, dial 4-9-6 or go to your nearest emergency department. NEED HELP? Are you dealing with a violent or abusive relationship? Are you a victim of rape or sexual assult? Call [facility] ([place]) 24 hour Crisis Hotline: 311.715.5406 or 299-501-8260. MANUAL Your Guide to a Healthy manual is now on-line. Visit [email or web address] to download your free copy documented in this encounterBethesda North Hospital07-02-2024 Progress note* Quick Notes - Mihir Albright MD - 04/12/2024 1:32 PM EDT KJ - VB No. LOF No. CTXS No. Movement: present. Other c/o: constipation Medication list reviewed. Physical Exam See Flow Sheet Gen: no accute distress, well appearing Abd: soft, nontender, gravid A/P 33w4d Estimated Date of Delivery: 05/27/24 Encouraged tobacco cessation - patient does not have plans for this Anemia - encouraged Fe & Regular PNV use. Repeat CBC today. Constipation - miralax & colace given Follow up US in 2 weeks PTL precautions reviewed, Kick counts reviewed. Mihir Albright MD [facility]07-02-2024 Miscellaneous Notes* Quick Notes - Mihir Albright MD - 04/12/2024 1:32 PM EDT KJ - VB No. LOF No. CTXS No. Movement: present. Other c/o: constipation Medication list reviewed. Physical Exam See Flow Sheet Gen: no accute distress, well appearing Abd: soft, nontender, gravid A/P 33w4d Estimated Date of Delivery: 05/27/24 Encouraged tobacco cessation - patient does not have plans for this Anemia - encouraged Fe & Regular PNV use. Repeat CBC today. Constipation - miralax & colace given Follow up US in 2 weeks PTL precautions reviewed, Kick counts reviewed. Mihir Albright MD documented in this encounterBethesda North Hospital07-02-2024 Instructions* Patient Instructions* Nohelia Oconnor MA - 04/12/2024 12:58 PM EDT SEQUENTIAL SCREENINGS The [facility] offers sequential screenings for women who are interested in screenings for chromosomal abnormalities and certain defects during a . The sequential screen combinesultrasound and blood tests to determine the risk of chromosomal abnormalities, including Down's Syndrome (Trisomy 21) and Trisomy 18, as well as open neural tube defects including spina bifida. Ultrasound examination is performed between 11 weeks and 13 weeks gestational age. Blood tests are drawn after the ultrasound and again later in the between 15 and 21 weeks gestational age. Please let your physician know if you are interested in this testing. It will require an appointment withour wound care technician. This is not an ultrasound performed by a physician in our office during a routine visit. SIGNS AND SYMPTOMS OF LABOR 1. Contractions every 10 minutes or more often 2. Clear, pink, or brownish fluid (water) leaking from vagina 3. Feeling that baby is pushing down, pressure 4. Low, dull backache 5. Cramps that feel like a period 6. Cramps with or without diarrhea If you notice any of the above symptoms, contact our office at [phone] and ask to speak with anurse. After hours, you can call doctors registry at [phone] OR call [facility] at [phone] ask to have the doctor metal fabrication supervisor paged. If you consider this an emergency, dial 0-4-0 or go to your nearest emergency department. NEED HELP? Are you dealing with a violent or abusive relationship? Are you a victim of rape or sexual assult? Call [facility] ([place]) 24 hour Crisis Hotline: 145.115.7224 or 193-157-4978. MANUAL Your Guide to a Healthy manual is now on-line. Visit [email or web address] to download your free copy documented in this encounterBethesda North Hospital07-01-2024 Telephone encounter Note * Telephone Encounter - Alyson Barksdale RN - 04/11/2024 1:19 PM EDT Patient notified. Alyson Barksdale RN [facility]07-01-2024 Miscellaneous Notes* Telephone Encounter - Alyson Barksdale RN - 04/11/2024 1:19 PM EDT Patient notified. Alyson Barksdale RN * Telephone Encounter - Urban Burnett MD - 04/11/2024 12:56 PM EDT I would not be concerned but generally plain old water is the best for hydration. Urban Burnett MD * Telephone Encounter - Karina Manning RN - 04/11/2024 12:51 PM EDT 33w3d Patient states she took a couple of sips of [employer] Electrolyte Hydration powder mix in water. On the package it states not recommenced in and to check with your doctor if you are . Karina Manning RN documented in this encounterBethesda North Hospital07-01-2024 Telephone encounter Note * Telephone Encounter - Urban Burnett MD - 04/11/2024 12:56 PM EDT I would not be concerned but generally plain old water is the best for hydration. Urban Burnett MD [facility] Work Phone: 1(556) 161-350807-01-2024 Telephone encounter Note* Telephone Encounter - Karina Manning RN - 04/11/2024 12:51 PM EDT 33w3d Patient states she took a couple of sips of [employer] Electrolyte Hydration powder mix in water. On the package it states not recommenced in and to check with your doctor if you are . Karina Manning RN [facility]06-27-2024 Telephone encounter Note* Telephone Encounter - Shell Tucker RN - 04/07/2024 9:21 AM EDT Patient informed [facility]06-27-2024 Miscellaneous Notes* Telephone Encounter - Shell Tucker RN - 04/07/2024 9:21 AM EDT Patient informed * Telephone Encounter - Berta Eldridge APRN.CNM - 04/07/2024 9:03 AM EDT I sent RX for 2 wrist splints to pharmacy but it says it is not covered by insurance. Please notifypatient she will need to call and inquire about morris. Berta Eldridge APRN.CNM * Telephone Encounter - Maddison Moreno LPN - 04/07/2024 8:39 AM EDT Ob patient is [id number] c/o pain, swelling in b/l hands, difficulty grasping items with hands. Isalso c/o swelling in ankles, denies swelling in face, headache, epigastric pain, and vision changes. Patient discussed carpal tunnel with provider at appointment on 03/31 and wrist splints were discussed. Patient stated that she cannot to purchase and asking if a Rx can be written? documented in this encounterBethesda North Hospital06-27-2024 Telephone encounter Note * Telephone Encounter - Berta Eldridge APRN.CNM - 04/07/2024 9:03 AM EDT I sent RX for 2 wrist splints to pharmacy but it says it is not covered by insurance. Please notifypatient she will need to call and inquire about morris. Berta Eldridge APRN.CNM [facility]06-27-2024 Telephone encounter Note* Telephone Encounter - Maddison Moreno LPN - 04/07/2024 8:39 AM EDT Ob patient is [id number] c/o pain, swelling in b/l hands, difficulty grasping items with hands. Isalso c/o swelling in ankles, denies swelling in face, headache, epigastric pain, and vision changes. Patient discussed carpal tunnel with provider at appointment on 03/31 and wrist splints were discussed. Patient stated that she cannot to purchase and asking if a Rx can be written? [facility]06-24-2024 Telephone encounter Note* Telephone Encounter - Elana Ceballos LPN - 04/04/2024 11:21 AM EDT Pt assisted to schedule follow up growth ultrasound at 36 weeks. Elana Ceballos LPN [facility]06-24-2024 Miscellaneous Notes* Telephone Encounter - Elana Ceballos LPN - 04/04/2024 11:21 AM EDT Pt assisted to schedule follow up growth ultrasound at 36 weeks. Elana Ceballos LPN * Telephone Encounter - Orly Holloway RN - 04/04/2024 10:20 AM EDT Left message to call office. Orly Holloway RN * Telephone Encounter - Orly Holloway RN - 04/04/2024 10:19 AM EDT ----- Message from Berta Eldridge APRN.CNM sent at 04/04/2024 8:50 AM EDT ----- Repeat growth in 4 weeks. Please assist with scheduling for 36 weeks gestation. Berta Eldridge APRN.CNM documented in this encounterBethesda North Hospital06-24-2024 Telephone encounter Note * Telephone Encounter - Orly Holloway RN - 04/04/2024 10:20 AM EDT Left message to call office. Orly Holloway RN [facility]06-24-2024 Telephone encounter Note* Telephone Encounter - Orly Holloway RN - 04/04/2024 10:19 AM EDT ----- Message from Berta Eldridge APRN.CNM sent at 04/04/2024 8:50 AM EDT ----- Repeat growth in 4 weeks. Please assist with scheduling for 36 weeks gestation. Berta Eldridge APRN.CNM [facility]06-21-2024 Note Indication Evaluation of growth Impression REMOTE READ - Single, live, intrauterine . - LGA - The EFW is 2311 g, at the 92%. AC is at the 97%. - Amniotic fluid volume is normal amount with an MVP of 5.3 cm and MARIA EUGENIA of 17.5 cm. - The placenta is posterior, fundal. - No malformations visualized on a limited survey as detailed below. Recommendations - growth scan in 4 weeks - Additional follow up as clinically indicated. Maternal Assessment Height 168 cm Height (ft) 5 ft Height (in) 6 in Physical Exam Initial weight (lb) 142 lb Initial BMI 22.92 kg/m Maternal assessment other: 1 Para 0 Method Transabdominal ultrasound examination [place] . Number of fetuses: 1 Dating LMP on: 08/21/2023 GA by LMP 32 w + 0 d SUSAN by LMP: 05/27/2024 GA by prior assessment 32 w + 0 d SUSAN by prior assessment: 05/27/2024 Ultrasound examination on: 04/01/2024 GA by U/S based upon: AC, BPD, Femur, HC GA by U/S 34 w + 0 d SUSAN by U/S: 05/13/2024 Assigned: based on stated SUSAN, selected on 04/01/2024 Assigned GA 32 w + 0 d Assigned SUSAN: 05/27/2024 General Evaluation Cardiac activity present. FHR 150 bpm. movements: present. Presentation: cephalic Placenta: Placental site: posterior, fundal Umbilical cord: Cord vessels: 3 vessel cord Amniotic fluid: Amount of AF: normal amount. MVP 5.3 cm. MARIA EUGENIA 17.5 cm. Q1 3.2 cm, Q2 4.9 cm, Q3 4.1 cm, Q4 5.3 cm Growth Overview Exam date GA BPD (mm) HC (mm) AC (mm) FL (mm) HL (mm) EFW (g) 01/05/2024 19w 4d 49 92% 184.2 84% 167.3 96% 32.2 79% 30.9 77% 388 98% 04/01/2024 32w 0d 86.6 98% 311.4 83% 305.1 97% 62.9 78% 2311 92% Biometry Standard BPD 86.6 mm 35w 0d 98% Hadlock OFD 107.7 mm 32w 2d 63% Nicolaides HC 311.4 mm 33w 6d 83% Michael AC 305.1 mm 34w 3d 97% Hadlock Femur 62.9 mm 32w 3d 78% Michael EFW 2,311 g 33w 5d 92% Hadlock EFW (lb) 5 lb EFW (oz) 2 oz EFW by: Hadlock (HC-AC-FL) Extended Unit Tender 5.6 mm Extremities / Bony Struc FL / HC 0.20 Other Structures FHR 150 bpm Anatomy Lateral ventricles: normal Cavum septi pellucidi: normal Cerebellum: normal Cisterna magna: normal 4-chamber view: normal RVOT view: normal LVOT view: normal 3-vessel view: suboptimal Heart / Thorax Situs: situs solitus (normal) Diaphragm: normal Stomach: normal Kidneys: normal Bladder: normal Cervical spine: normal Thoracic spine: normal Lumbar spine: normal Sacral spine: normal sex: male Wants to know sex: yes Performed By: Orly Muñoz RDMS, RVT Read By: Naveen Ann M.D.MATERNAL [id number] Progress note * Quick Notes - Berta Eldridge APRN.CNM - 03/31/2024 1:11 PM EDT S: Jackson Ny is a 23 year old female who presents at 05/27/2024, Alternate SUSAN Entry for a routine visit. Positive movement. C/O pain in hands in the mornings- hx of carpal tunnel. Recommended wearing splints. Denies headache, visual changes, chest pain, shortness of breath, vaginal bleeding, leakage of fluid, or dysuria. Feeling well, no complaints. O: See flow sheet Gen: No apparent distress Abd: Gravid, non tender S=D TWG 21 lbs. ASSESSMENT/PLAN: 1. Supervision of high risk in third trimester - ICD9: V23.9, ICD10: O09.93 (primary diagnosis) 2. 31 weeks gestation of - ICD9: V22.2, ICD10: Z3A.31 3. Tobacco smoking complicating in first trimester - ICD9: 649.03, ICD10: O99.331 4. Gastroesophageal reflux disease without esophagitis - ICD9: 530.81, ICD10: K21.9 5. Anemia during in third trimester - ICD9: 648.23, ICD10: O99.013 - Continue oral iron - Repeat CBC next visit- Order placed - Continue Protonix 20 mg PO daily - Patient was supposed to have follow up anatomy US due to limited views but kept forgetting to askabout it at visits. Order for growth US placed and patient to schedule MEMO - 3 hour GTT normal - PTL precautions and kick counts reviewed - RTO 2 weeks or sooner if needed Berta Eldridge APRN.CNM [facility]06-20-2024 Miscellaneous Notes* Quick Notes - Berta Eldridge APRN.CNM - 03/31/2024 1:11 PM EDT S: Jackson Ny is a 23 year old female who presents at 05/27/2024, Alternate SUSAN Entry for a routine visit. Positive movement. C/O pain in hands in the mornings- hx of carpal tunnel. Recommended wearing splints. Denies headache, visual changes, chest pain, shortness of breath, vaginal bleeding, leakage of fluid, or dysuria. Feeling well, no complaints. O: See flow sheet Gen: No apparent distress Abd: Gravid, non tender S=D TWG 21 lbs. ASSESSMENT/PLAN: 1. Supervision of high risk in third trimester - ICD9: V23.9, ICD10: O09.93 (primary diagnosis) 2. 31 weeks gestation of - ICD9: V22.2, ICD10: Z3A.31 3. Tobacco smoking complicating in first trimester - ICD9: 649.03, ICD10: O99.331 4. Gastroesophageal reflux disease without esophagitis - ICD9: 530.81, ICD10: K21.9 5. Anemia during in third trimester - ICD9: 648.23, ICD10: O99.013 - Continue oral iron - Repeat CBC next visit- Order placed - Continue Protonix 20 mg PO daily - Patient was supposed to have follow up anatomy US due to limited views but kept forgetting to askabout it at visits. Order for growth US placed and patient to schedule MEMO - 3 hour GTT normal - PTL precautions and kick counts reviewed - RTO 2 weeks or sooner if needed Berta Eldridge APRN.CNM documented in this encounterBethesda North Hospital06-20-2024 Instructions* Patient Instructions* Quinn De La O MA - 03/31/2024 1:00 PM EDT SEQUENTIAL SCREENINGS The [facility] offers sequential screenings for women who are interested in screenings for chromosomal abnormalities and certain defects during a . The sequential screen combinesultrasound and blood tests to determine the risk of chromosomal abnormalities, including Down's Syndrome (Trisomy 21) and Trisomy 18, as well as open neural tube defects including spina bifida. Ultrasound examination is performed between 11 weeks and 13 weeks gestational age. Blood tests are drawn after the ultrasound and again later in the between 15 and 21 weeks gestational age. Please let your physician know if you are interested in this testing. It will require an appointment withour wound care technician. This is not an ultrasound performed by a physician in our office during a routine visit. SIGNS AND SYMPTOMS OF LABOR 1. Contractions every 10 minutes or more often 2. Clear, pink, or brownish fluid (water) leaking from vagina 3. Feeling that baby is pushing down, pressure 4. Low, dull backache 5. Cramps that feel like a period 6. Cramps with or without diarrhea If you notice any of the above symptoms, contact our office at [phone] and ask to speak with anurse. After hours, you can call doctors registry at [phone] OR call [facility] at [phone] ask to have the doctor metal fabrication supervisor paged. If you consider this an emergency, dial [phone] or go to your nearest emergency department. NEED HELP? Are you dealing with a violent or abusive relationship? Are you a victim of rape or sexual assult? Call [facility] ([place]) 24 hour Crisis Hotline: 249.822.5365 or 038-142-6922. MANUAL Your Guide to a Healthy manual is now on-line. Visit [email or web address] to download your free copy documented in this encounterBethesda North Hospital06-06-2024 Telephone encounter Note * Telephone Encounter - Mihir Albright MD - 03/17/2024 12:28 PM EDT Needs 3hr GTT Mihir Albright MD [facility]06-06-2024 Miscellaneous Notes* Telephone Encounter - Mihir Albright MD - 03/17/2024 12:28 PM EDT Needs 3hr GTT Mihir Albright MD * Telephone Encounter - Maddison Moreno LPN - 03/17/2024 8:24 AM EDT [facility] Elevated 1 hour glucose. Please advise. documented in this encounterBethesda North Hospital06-06-2024 Telephone encounter Note * Telephone Encounter - Karina Lay RN - 03/17/2024 9:40 AM EDT 3rd risk assessment form submitted 03/17/2024. Karina Lay RN [facility]06-06-2024 Miscellaneous Notes* Telephone Encounter - Karina Lay RN - 03/17/2024 9:40 AM EDT 3rd risk assessment form submitted 03/17/2024. Karina Lay RN documented in this encounterBethesda North Hospital06-06-2024 Telephone encounter Note * Telephone Encounter - Maddison Moreno LPN - 03/17/2024 8:24 AM EDT Patient saw results of 28 week labs on mychart. Elevated 1 hour glucose. Please advise. [facility]06-05-20[facility] Progress note* Quick Notes - Berta Eldridge APRN.NOE - 03/16/2024 2:52 PM EDT S: Jackson Ny is a 23 year old female who presents at 29 weeks gestation for a routine visit.Just completed GCT. Positive movement. Increased acid reflux daily with no relief with TUMS. Will try Protonix PO daily- RX sent. Denies headache, visual changes, chest pain, shortness of breath, vaginal bleeding, leakage of fluid, or dysuria. O: See flow sheet Gen: No apparent distress Abd: Gravid, nontender ASSESSMENT/PLAN: 1. 29 weeks gestation of - ICD9: V22.2, ICD10: Z3A.29 (primary diagnosis) 2. Need for vaccination - ICD9: V05.9, ICD10: Z23 3. Acid Reflux - 1 hour GCT, CBC, and RPR today - Rh negative- Rhogam injection today - TDAP today - LARC form reviewed and signed. Patient declines- desires Nexplanon at 6 weeks PP - Depression screen negative - Opioid screen negative- Hx of use/ patient does not want any IV narcotic medications during labor - plan form discussed and given to patient. Patient desires epidural( discussed has narcotics) Breast feeding and circumcision - Rx Protonix 20 mg PO daily sent - PTL precautions and kick counts reviewed - RTO- 2 weeks or sooner if needed Berta Eldridge APRN.CNM [facility]06-05-2024 Miscellaneous Notes* Quick Notes - Berta Eldridge APRN.CNM - 03/16/2024 2:52 PM EDT S: Jackson Ny is a 23 year old female who presents at 29 weeks gestation for a routine visit.Just completed GCT. Positive movement. Increased acid reflux daily with no relief with TUMS. Will try Protonix PO daily- RX sent. Denies headache, visual changes, chest pain, shortness of breath, vaginal bleeding, leakage of fluid, or dysuria. O: See flow sheet Gen: No apparent distress Abd: Gravid, nontender ASSESSMENT/PLAN: 1. 29 weeks gestation of - ICD9: V22.2, ICD10: Z3A.29 (primary diagnosis) 2. Need for vaccination - ICD9: V05.9, ICD10: Z23 3. Acid Reflux - 1 hour GCT, CBC, and RPR today - Rh negative- Rhogam injection today - TDAP today - LARC form reviewed and signed. Patient declines- desires Nexplanon at 6 weeks PP - Depression screen negative - Opioid screen negative- Hx of use/ patient does not want any IV narcotic medications during labor - plan form discussed and given to patient. Patient desires epidural( discussed has narcotics) Breast feeding and circumcision - Rx Protonix 20 mg PO daily sent - PTL precautions and kick counts reviewed - RTO- 2 weeks or sooner if needed Berta Eldridge APRN.CNM documented in this encounterBethesda North Hospital06-[facility] History of Present illness Narrative* Kristina Rajan MA - 03/16/2024 2:31 PM EDT Patient identified by name and date of . Jackson Ny presents today for a vaccination of Tdap. Patient denies an allergy to latex: yes Patient denies a severe (life-threatening) allergy to a previous dose of Tdap, DTP, DTaP, DT or Td vaccine. Yes Patient denies history of epilepsy or neurological problems: Yes Patient is afebrile and denies being moderately or severely ill: Yes Patient denies history of Guillain-Pingree Syndrome (a severe paralytic illness): Yes Tdap Adacel injection was given without incident. See immunizations for details of immunizations administered today. VIS sheet provided: Yes Provider Jazmyn was present in office at time of injection. Kristina Rajan MA documented in this encounterBethesda North Hospital06-05-2024 Instructions* Patient Instructions* Kristina Rajan MA - 03/16/2024 2:22 PM EDT SEQUENTIAL SCREENINGS The [facility] offers sequential screenings for women who are interested in screenings for chromosomal abnormalities and certain defects during a . The sequential screen combinesultrasound and blood tests to determine the risk of chromosomal abnormalities, including Down's Syndrome (Trisomy 21) and Trisomy 18, as well as open neural tube defects including spina bifida. Ultrasound examination is performed between 11 weeks and 13 weeks gestational age. Blood tests are drawn after the ultrasound and again later in the between 15 and 21 weeks gestational age. Please let your physician know if you are interested in this testing. It will require an appointment withour wound care technician. This is not an ultrasound performed by a physician in our office during a routine visit. SIGNS AND SYMPTOMS OF LABOR 1. Contractions every 10 minutes or more often 2. Clear, pink, or brownish fluid (water) leaking from vagina 3. Feeling that baby is pushing down, pressure 4. Low, dull backache 5. Cramps that feel like a period 6. Cramps with or without diarrhea If you notice any of the above symptoms, contact our office at [phone] and ask to speak with anurse. After hours, you can call doctors registry at [phone] OR call [facility] at [phone] ask to have the doctor metal fabrication supervisor paged. If you consider this an emergency, dial 06-12-6 or go to your nearest emergency department. NEED HELP? Are you dealing with a violent or abusive relationship? Are you a victim of rape or sexual assult? Call [facility] ([place]) 24 hour Crisis Hotline: 159.922.6540 or 443-054-3380. MANUAL Your Guide to a Healthy manual is now on-line. Visit [email or web address] to download your free copy documented in this encounterBethesda North Hospital05-23-2024 Telephone encounter Note * Telephone Encounter - Berta Eldridge APRN.CNM - 03/03/2024 11:55 AM EDT Rx sent. Berta Eldridge APRN.CNM [facility]05-23-2024 Miscellaneous Notes* Telephone Encounter - Berta Eldridge APRN.CNM - 03/03/2024 11:55 AM EDT Rx sent. Berta Eldridge APRN.CNM * Telephone Encounter - Alyson Barksdale RN - 03/01/2024 10:35 AM EDT 27w4d Patient is no longer residing at [facility] for rehab. Asking for rx for aspirin to be sent back [facility] pharmacy now. Previous one was already transferred once to [facility] pharmacy for when she was at [facility] and not able to be transferred back again. Requested Prescriptions Pending Prescriptions Disp Refills aspirin, enteric coated (ECOTRIN LOW STRENGTH) 81 mg EC tablet 60 tablet 3 Sig: Take 2 tablets by mouth once daily. Alyson Barksdale RN documented in this encounterBethesda North Hospital05-21-2024 Telephone encounter Note * Telephone Encounter - Alyson Barksdale RN - 03/01/2024 10:35 AM EDT 27w4d Patient is no longer residing at [facility] for rehab. Asking for rx for aspirin to be sent back [facility] pharmacy now. Previous one was already transferred once to [facility] pharmacy for when she was at [facility] and not able to be transferred back again. Requested Prescriptions Pending Prescriptions Disp Refills aspirin, enteric coated (ECOTRIN LOW STRENGTH) 81 mg EC tablet 60 tablet 3 Sig: Take 2 tablets by mouth once daily. Alyson Barksdale RN [facility]05-10-2024 Telephone encounter Note* Telephone Encounter - Karina Manning RN - 02/19/2024 1:00 PM EDT Letter prepared and faxed to the number provided. Karina Manning RN [facility]05-10-2024 Miscellaneous Notes* Telephone Encounter - Karina Manning RN - 02/19/2024 1:00 PM EDT Letter prepared and faxed to the number provided. Karina Manning RN * Telephone Encounter - Karen Langley 02/19/2024 12:46 PM EDT Brinda Mcpherson is requiring a letter of proof of from OB practitioner. This would need to include her due date. Patient is requesting to have letter faxed to her place of employment, [employer], at [phone] Attn: Alpa. documented in this encounterBethesda North Hospital05-10-2024 Telephone encounter Note * Telephone Encounter - Karen Langley - 02/19/2024 12:46 PM EDT Brinda Mcpherson is requiring a letter of proof of from OB practitioner. This would need to include her due date. Patient is requesting to have letter faxed to her place of employment, [employer], at [phone] Attn: Alpa. [facility]05-08-2024 Progress note* Quick Notes - Dex Montesinos MD - 02/17/2024 4:27 PM EDT Patient presents at 25 weeks gestation with hx of unprotected intercourse 4 days ago and recent tx for BV. She desires testing for GC and Chlmydia and BV. 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 She desires testing for GC and Chlmydia and BV. Pt denies bleeding, lof, N/V/D ABD snt, FHR, 150, ++FM Pelvic, unremarkable discharge, cx LCT A/P 25 wk H/O substance use / continue visits at 180 / reports being sober 90 [address]on (4 mo for meth) Continue routine PNC Dex Montesinos MD documented in this encounterBethesda North Hospital05-08-2024 Instructions* Patient Instructions* Quinn De La O MA - 02/17/2024 3:46 PM EDT SEQUENTIAL SCREENINGS The [facility] offers sequential screenings for women who are interested in screenings for chromosomal abnormalities and certain defects during a . The sequential screen combinesultrasound and blood tests to determine the risk of chromosomal abnormalities, including Down's Syndrome (Trisomy 21) and Trisomy 18, as well as open neural tube defects including spina bifida. Ultrasound examination is performed between 11 weeks and 13 weeks gestational age. Blood tests are drawn after the ultrasound and again later in the between 15 and 21 weeks gestational age. Please let your physician know if you are interested in this testing. It will require an appointment withour wound care technician. This is not an ultrasound performed by a physician in our office during a routine visit. SIGNS AND SYMPTOMS OF LABOR 1. Contractions every 10 minutes or more often 2. Clear, pink, or brownish fluid (water) leaking from vagina 3. Feeling that baby is pushing down, pressure 4. Low, dull backache 5. Cramps that feel like a period 6. Cramps with or without diarrhea If you notice any of the above symptoms, contact our office at [phone] and ask to speak with anurse. After hours, you can call doctors registry at [phone] OR call [facility] at [phone] ask to have the doctor metal fabrication supervisor paged. If you consider this an emergency, dial 9-1-1 or go to your nearest emergency department. NEED HELP? Are you dealing with a violent or abusive relationship? Are you a victim of rape or sexual assult? Call [facility] ([place]) 24 hour Crisis Hotline: 345.251.9968 or 332-921-6152. MANUAL Your Guide to a Healthy manual is now on-line. Visit [email or web address] to download your free copy documented in this encounterBethesda North Hospital04-24-2024 Telephone encounter Note * Telephone Encounter - Karina Lay RN - 02/03/2024 11:17 AM EDT 2nd risk assessment form submitted 02/03/2024. Karina Lay RN [facility]04-24-2024 Miscellaneous Notes* Telephone Encounter - Karina Lay RN - 02/03/2024 11:17 AM EDT 2nd risk assessment form submitted 02/03/2024. Karina Lay RN documented in this encounterBethesda North Hospital04-23-2024 Progress note* Quick Notes - Mihir Albright MD - 02/02/2024 1:16 PM EDT KJ - VB No. LOF No. CTXS No. Movement: present. Other c/o: increased vaginal discharge/itching and concerns about yeast infection. She is finishing the flagyl now. Medication list reviewed. Physical Exam See Flow Sheet Gen: no accute distress, well appearing Abd: soft, nontender, gravid : external genitalia: normal, vagina: pink, ruggated, and discharge: white, cervix: closed A/P 23w4d Estimated Date of Delivery: 05/27/24 Vaginal itching - check vaginitis swab. Declines STD testing. Advised on perineal hygiene. H/o nicotine use - continue patch H/o drug abuse - continue treatment at 180 PTL precautions reviewed, Kick counts reviewed. Mihir Albright MD [facility]04-23-2024 Miscellaneous Notes* Quick Notes - Mihir Albright MD - 02/02/2024 1:16 PM EDT KJ - VB No. LOF No. CTXS No. Movement: present. Other c/o: increased vaginal discharge/itching and concerns about yeast infection. She is finishing the flagyl now. Medication list reviewed. Physical Exam See Flow Sheet Gen: no accute distress, well appearing Abd: soft, nontender, gravid : external genitalia: normal, vagina: pink, ruggated, and discharge: white, cervix: closed A/P 23w4d Estimated Date of Delivery: 05/27/24 Vaginal itching - check vaginitis swab. Declines STD testing. Advised on perineal hygiene. H/o nicotine use - continue patch H/o drug abuse - continue treatment at 180 PTL precautions reviewed, Kick counts reviewed. Mihir Albright MD documented in this encounterBethesda North Hospital04-23-2024 Instructions* Patient Instructions* Mihir Albright MD - 02/02/2024 1:03 PM EDT SEQUENTIAL SCREENINGS The [facility] offers sequential screenings for women who are interested in screenings for chromosomal abnormalities and certain defects during a . The sequential screen combinesultrasound and blood tests to determine the risk of chromosomal abnormalities, including Down's Syndrome (Trisomy 21) and Trisomy 18, as well as open neural tube defects including spina bifida. Ultrasound examination is performed between 11 weeks and 13 weeks gestational age. Blood tests are drawn after the ultrasound and again later in the between 15 and 21 weeks gestational age. Please let your physician know if you are interested in this testing. It will require an appointment withour wound care technician. This is not an ultrasound performed by a physician in our office during a routine visit. SIGNS AND SYMPTOMS OF LABOR 1. Contractions every 10 minutes or more often 2. Clear, pink, or brownish fluid (water) leaking from vagina 3. Feeling that baby is pushing down, pressure 4. Low, dull backache 5. Cramps that feel like a period 6. Cramps with or without diarrhea If you notice any of the above symptoms, contact our office at [phone] and ask to speak with anurse. After hours, you can call doctors registry at [phone] OR call [facility] at [phone] ask to have the doctor metal fabrication supervisor paged. If you consider this an emergency, dial 06-12- or go to your nearest emergency department. NEED HELP? Are you dealing with a violent or abusive relationship? Are you a victim of rape or sexual assult? Call [facility] ([place]) 24 hour Crisis Hotline: 444.809.7631 or 332-903-5797. MANUAL Your Guide to a Healthy manual is now on-line. Visit [email or web address] to download your free copy Minimizing irritation of the vulva (area around the vagina) Wear white cotton underwear. Avoid synthetic fabrics and tight clothing. Sleep wearing shorts or pajama bottoms without underwear. Shower as soon as possible after exercise. Avoid clothing detergents and soaps with perfumes or dyes. Use warm (not hot) water to wash the vulva and if you use soap use a product designed for sensitive skin (like Dove or Cetaphil). Do not douche or use creams/powders in the vulvar area unless instructed by your physician. If you must douche, use only plain warm water. Make sure the vulva is dry before dressing by patting dry with a towel. Avoid vigorous rubbing withthe towel. You may want to use the blow dryer (on the cool setting only!) on the vulva. The most important way to let your body heal is by avoiding scratching. Many patients find it difficult to avoid scratching at night when they are most aware of the itchiness. You can try taking Benadryl just before bedtime. Some women find it helpful to wear cotton gloves to bed to avoid scratching at night. documented in this encounterBethesda North Hospital04-17-2024 Miscellaneous Notes* Telephone Encounter - Alyson Barksdale RN - 01/27/2024 3:27 PM EDT Patient notified. Alyson Barksdale RN The following approved medication requests have been transmitted electronically. Requested Prescriptions Signed Prescriptions Disp Refills metroNIDAZOLE (FLAGYL) 500 mg tablet 14 tablet 0 Sig: Take 1 tablet by mouth two times a day for 7 days. Authorizing Provider: KARINA KWONG azithromycin (ZITHROMAX) 500 mg tablet 2 tablet 0 Sig: Take 2 tablets by mouth one time only for 1 dose. Authorizing Provider: KARINA KWONG Pharmacy Information Pharmacy Address Telephone [facility] [phone] [place] [address] * Telephone Encounter - Karina Manning RN - 01/27/2024 3:20 PM EDT Left message for patient to call office. Karina Manning RN * Telephone Encounter - Karina Kwong MD - 01/27/2024 3:15 PM EDT Ok. Both Prescriptions filed * Telephone Encounter - Alyson Barksdale RN - 01/27/2024 3:09 PM EDT Patient notified. She is actually now out of the residential facility part of [facility] and into [facility], so she does need prescriptions now. Patient requesting call back once done. Please file Flagyl and Azithromycin if okay. Alyson Barksdale RN * Telephone Encounter - Alyson Barksdale RN - 01/27/2024 1:04 PM EDT Left voicemail at [facility] to have patient call office. Alyson Barksdale RN * Telephone Encounter - Karina Kwong MD - 01/27/2024 12:39 PM EDT The ureaplasma can be treated with Azithromycin 1 gram in a single dose. * Telephone Encounter - Alyson Barksdale RN - 01/27/2024 12:09 PM EDT 22w5d Patient currently resides at [facility]. Received results via fax that she is positive for BV and ureaplasma parvum. Report to to review. In the past [facility] has treated patient with Flagyl as long as it is approved by OB provider. She has had BV 11/25 and 12/15. What does she need for ureaplasma? Please advise. Alyson Barksdale RN documented in this encounterBethesda North Hospital04-03-2024 Miscellaneous Notes* Telephone Encounter - Indy Perez RN - 01/13/2024 3:56 PM EDT Patient notified. Indy Perez RN * Telephone Encounter - Berta Eldridge APRN.CNM - 01/13/2024 3:44 PM EDT Yes, this is appropriate. Berta Eldridge APRN.CNM * Telephone Encounter - Karina Manning RN - 01/13/2024 3:14 PM EDT Patient called back. Nurse at treatment center wanted patient to ask if she can take Z-corby instead. Karina Manning RN * Telephone Encounter - Indy Perez RN - 01/13/2024 2:30 PM EDT 20w5d Patient calling from residential treatment where she tested positive for strep throat. They can treat her but asking if she can be prescribed clindamycin. Please advise. Call residence back at [phone]. Indy Perez RN documented in this encounterBethesda North Hospital03-26-2024 Miscellaneous Notes* Quick Notes - Mihir Albright MD - 01/05/2024 2:57 PM EDT KJ - VB No. LOF No. CTXS No. Movement: present. Other c/o: took 5 days of Monistat and still having symptoms. She is out of of the Monistat. Medication list reviewed. Physical Exam See Flow Sheet Gen: no accute distress, well appearing Abd: soft, nontender, gravid A/P 19w4d Estimated Date of Delivery: 05/27/24 Anatomy US today Yeast infection - rx Monistat 7 and patient will do total 10 days treatment H/o nicotine use - continue patch H/o drug abuse - continue treatment at 180 Mihir Albright MD documented in this encounterBethesda North Hospital03-26-2024 Miscellaneous Notes* Result Encounter Note - Urban Burnett MD - 01/05/2024 2:34 PM EDT Anatomy ultrasound reviewed. No abnormalities identified. Follow up as clinically indicated. Pleaseplace copy in ob chart. Urban Burnett MD documented in this encounterBethesda North Hospital03-26-2024 Instructions* Patient Instructions* Harika Galindo MA - 01/05/2024 1:42 PM EDT SEQUENTIAL SCREENINGS The [facility] offers sequential screenings for women who are interested in screenings for chromosomal abnormalities and certain defects during a . The sequential screen combinesultrasound and blood tests to determine the risk of chromosomal abnormalities, including Down's Syndrome (Trisomy 21) and Trisomy 18, as well as open neural tube defects including spina bifida. Ultrasound examination is performed between 11 weeks and 13 weeks gestational age. Blood tests are drawn after the ultrasound and again later in the between 15 and 21 weeks gestational age. Please let your physician know if you are interested in this testing. It will require an appointment withour wound care technician. This is not an ultrasound performed by a physician in our office during a routine visit. SIGNS AND SYMPTOMS OF LABOR 1. Contractions every 10 minutes or more often 2. Clear, pink, or brownish fluid (water) leaking from vagina 3. Feeling that baby is pushing down, pressure 4. Low, dull backache 5. Cramps that feel like a period 6. Cramps with or without diarrhea If you notice any of the above symptoms, contact our office at [phone] and ask to speak with anurse. After hours, you can call doctors registry at [phone] OR call [facility] at [phone] ask to have the doctor metal fabrication supervisor paged. If you consider this an emergency, dial 7-1- or go to your nearest emergency department. NEED HELP? Are you dealing with a violent or abusive relationship? Are you a victim of rape or sexual assult? Call [facility] ([place]) 24 hour Crisis Hotline: 811.792.1556 or 637-988-7361. MANUAL Your Guide to a Healthy manual is now on-line. Visit [email or web address] to download your free copy documented in this encounterBethesda North Hospital03-15-2024 Miscellaneous Notes* Telephone Encounter - Karina Manning RN - 12/25/2023 2:09 PM EDT Left message with medical receptionist biller as patient was not available that a prescription was sent. Karina Manning RN * Telephone Encounter - Berta Eldridge APRN.CNM - 12/25/2023 1:50 PM EDT Thank you. RX sent Berta Eldridge APRN.CNM * Telephone Encounter - Orly Holloway RN - 12/25/2023 1:48 PM EDT [facility] is what used to be [facility]. Pharmacy is up to date. Orly Holloway RN * Telephone Encounter - Berta Eldridge APRN.CNM - 12/25/2023 1:04 PM EDT I put RX in but no idea what pharmacy you are talking about. Berta Eldridge APRN.CNM * Telephone Encounter - Karina Manning RN - 12/25/2023 12:19 PM EDT 18w0d Patient returned call. She received the message. Asking for a prescription for either Diflucan or Monistat 7 for yeast infection after completing Flagyl for +BV. Vaginal itching and thick white discharge. Would like RX sent to [facility]'s pharmacy. Currently residing at [facility]. Karina Manning RN * Telephone Encounter - Alyson Barksdale RN - 12/25/2023 11:57 AM EDT Anatomy u/s time had to be moved to 1pm on 01/04 and she will now see KJ afterwards instead of ALYX. Left message for patient to call office to confirm she received the message. Alyson Barksdale RN documented in this encounterBethesda North Hospital03-06-2024 Miscellaneous Notes* Telephone Encounter - Orly Holloway RN - 12/16/2023 3:55 PM EST Patient notified and voiced understanding. Orly Holloway RN * Telephone Encounter - Berta Eldridge APRN.CNM - 12/16/2023 3:45 PM EST Yes she can take again if positive for bacterial vaginosis. Berta Eldridge APRN.CNM * Telephone Encounter - Alyson Barksdale RN - 12/16/2023 3:09 PM EST 16w5d Patient is currently residing at [facility]. They tested her for BV again and it was positive. She was last positive there 11/25 (see phone note) and completed Flagyl 500mg BID x7 days. Doesn't feel her symptoms every completely went away causing her to retest today. Asking if she can take Flagyl BID x7 days again? [facility] does treat and provide rx for this. Is that okay or does she need appointment here for further testing? Alyson Barksdale RN documented in this encounterBethesda North Hospital02-22-2024 Miscellaneous Notes* Telephone Encounter - Telma Fraser RN - 12/03/2023 7:37 PM EST Patient calling regarding taking benadryl for hand rash with . Pt notified while waiting to speak to a provider, if symptoms worsen or if she is concerned call 911 or go to the ED Conferenced to Danika at [facility] Service [ ] to speak with provider metal fabrication supervisor for Caitlin Burnett . documented in this encounterBethesda North Hospital02-20-2024 Miscellaneous Notes* Telephone Encounter - Alyson Barksdale RN - 12/01/2023 11:27 AM EST Patient notified. She prefers not to take medication at all then and doesn't want to check with MFM. She will call back with any further questions. Alyson Barksdale RN * Telephone Encounter - Binta Carcamo APRN.CNM - 12/01/2023 10:56 AM EST Since this medication is being initiated during , it is preferred to be avoided, however, if the only medication that is going to effective would recommend discussion with MFM. Let me know. Thanks, Binta Carcamo APRN.CNM * Telephone Encounter - Orly Holloway RN - 12/01/2023 9:22 AM EST Patient 14w4d calling to ask if Prazosin is safe for her to take in . [facility] Prazosin 1 mg for nightmares. Patient states she was on this medication in the past. Patient is currently residing in [facility]. Will have to call [phone] and ask for the patient. Orly Holloway RN documented in this encounterBethesda North Hospital02-15-2024 Miscellaneous Notes* Quick Notes - Tania Ann MD - 11/26/2023 11:12 AM EST DM-Pt seen urgently for cramping- pt reports had pelvic cramping yesterday but it has since resolved. Denies vaginal Bleeding, Leaking fluid. Was dx with BV, needs to start treatment. Staying at [facility]- reports is very happy with program and doing well. Physical Exam: Gen: female in no apparent distress Abd: soft, Gravid. Non tender to palpation. See flow sheet A/P: 13.6 weeks 1) continue PNV and ASA 2) scheduled for anatomy us 3) Reassurance to start Flagyl for tx BV 4) RTO as scheduled. Tania Dawson MD documented in this encounterBethesda North Hospital02-15-2024 Instructions* Patient Instructions* Harika Galindo MA - 11/26/2023 10:51 AM EST SEQUENTIAL SCREENINGS [facility] offers sequential screenings for women who are interested in screenings for chromosomal abnormalities and certain defects during a . The sequential screen combinesultrasound and blood tests to determine the risk of chromosomal abnormalities, including Down's Syndrome (Trisomy 21) and Trisomy 18, as well as open neural tube defects including spina bifida. Ultrasound examination is performed between 11 weeks and 13 weeks gestational age. Blood tests are drawn after the ultrasound and again later in the between 15 and 21 weeks gestational age. Please let your physician know if you are interested in this testing. It will require an appointment withour wound care technician. This is not an ultrasound performed by a physician in our office during a routine visit. SIGNS AND SYMPTOMS OF LABOR 1. Contractions every 10 minutes or more often 2. Clear, pink, or brownish fluid (water) leaking from vagina 3. Feeling that baby is pushing down, pressure 4. Low, dull backache 5. Cramps that feel like a period 6. Cramps with or without diarrhea If you notice any of the above symptoms, contact our office at [phone] and ask to speak with anurse. After hours, you can call doctors registry at [phone] OR call [facility] at [phone] ask to have the doctor metal fabrication supervisor paged. If you consider this an emergency, dial 06-12- or go to your nearest emergency department. NEED HELP? Are you dealing with a violent or abusive relationship? Are you a victim of rape or sexual assult? Call [facility] ([place]) 24 hour Crisis Hotline: 789.264.7140 or 148-942-5459. MANUAL Your Guide to a Healthy manual is now on-line. Visit [email or web address] to download your free copy documented in this encounterBethesda North Hospital02-15-2024 Miscellaneous Notes* Telephone Encounter - Karina Manning RN - 11/26/2023 9:42 AM EST Appointment note made. Karina Manning RN * Telephone Encounter - Orly Holloway RN - 11/25/2023 1:12 PM EST Left message to call office. Orly Holloway RN * Telephone Encounter - Tania Ann MD - 11/25/2023 1:06 PM EST Ok for treatment but only needs BID x 7 days. Appt fine for tmrw if needed. * Telephone Encounter - Karina Manning RN - 11/25/2023 12:02 PM EST 13w5d Patient is at treatment with [facility]. Patient called to verify that she can be treated for +BV with Flagyl. Received faxed results from [facility]. They want her to have Flagyl 500 MG THREE TIMES A DAY x7 days. Results to DM to review. In addition, patient called back with c/o pelvic pain that began this morning. Pain rate of 5-6. Sharp and intermittent. No bleeding. Scheduled patient for an appointment tomorrow for evaluation. FYI. Please advise regarding Flagyl treatment. Karina Manning RN documented in this encounterBethesda North Hospital02-07-2024 Miscellaneous Notes* Telephone Encounter - Orly Holloway RN - 11/18/2023 11:15 AM EST Patient notified and voiced understanding. The following approved medications have been transmitted electronically. Requested Prescriptions Signed Prescriptions Disp Refills aspirin, enteric coated (ECOTRIN LOW STRENGTH) 81 mg EC tablet 60 tablet 6 Sig: Take 2 tablets by mouth once daily. Authorizing Provider: URBAN BURNETT Pharmacy Information Pharmacy Address Telephone [facility] [phone] [place] [address] Orly Holloway RN * Telephone Encounter - Urban Burnett MD - 11/18/2023 11:06 AM EST sent. thank you. my appologies. Urban Burnett MD * Telephone Encounter - Alyson Barksdale RN - 11/18/2023 10:14 AM EST 12w5d Saw RR yesterday and requested that aspirin rx be sent to [facility]. Medication shows only as a med upate and not like a prescription was sent. Please file. Patient requesting call back once completed. Alyson Barksdale RN documented in this encounterBethesda North Hospital02-06-2024 Miscellaneous Notes* Quick Notes - Urban Burnett MD - 11/17/2023 10:58 AM EST RR- VB No. LOF No. CTXS No. Movement: present. Other c/o: nausea improving Medication list reviewed. Physical Exam See Flow Sheet Abd: soft, nontender A/P 12w4d Estimated Date of Delivery: 05/27/24 Labs: reviewed aneuploidy screen a nd declines f/u in 4 weeks or prn anatomy US ordered recommend asa for preeclampsia prophylaxis, she is accepting of this. tob use 5 a day, cutting back w/ this and d/w her option of patches and will start them. THC- smoking occas. and cutting back, trying to enter treatment. Urban Burnett M.D. documented in this encounterBethesda North Hospital02-06-2024 Instructions* Patient Instructions* Sirena Sharma Ma - 11/17/2023 10:17 AM EST SEQUENTIAL SCREENINGS [facility] offers sequential screenings for women who are interested in screenings for chromosomal abnormalities and certain defects during a . The sequential screen combinesultrasound and blood tests to determine the risk of chromosomal abnormalities, including Down's Syndrome (Trisomy 21) and Trisomy 18, as well as open neural tube defects including spina bifida. Ultrasound examination is performed between 11 weeks and 13 weeks gestational age. Blood tests are drawn after the ultrasound and again later in the between 15 and 21 weeks gestational age. Please let your physician know if you are interested in this testing. It will require an appointment withour wound care technician. This is not an ultrasound performed by a physician in our office during a routine visit. SIGNS AND SYMPTOMS OF LABOR 1. Contractions every 10 minutes or more often 2. Clear, pink, or brownish fluid (water) leaking from vagina 3. Feeling that baby is pushing down, pressure 4. Low, dull backache 5. Cramps that feel like a period 6. Cramps with or without diarrhea If you notice any of the above symptoms, contact our office at [phone] and ask to speak with anurse. After hours, you can call doctors registry at [phone] OR call [facility] at [phone] ask to have the doctor metal fabrication supervisor paged. If you consider this an emergency, dial 9-3 or go to your nearest emergency department. NEED HELP? Are you dealing with a violent or abusive relationship? Are you a victim of rape or sexual assult? Call [facility] ([place]) 24 hour Crisis Hotline: 859.623.6189 or 450-795-7241. MANUAL Your Guide to a Healthy manual is now on-line. Visit [email or web address] to download your free copy documented in this encounterBethesda North Hospital01-11-2024 History of Past illness Narrative* Problem Noted Date Diagnosed Date Resolved Date with uncertain que es in first trimester 10/22/2023 01/05/2024 Overview: POCUS consistent with LMP. Nausea and vomiting during 10/22/2023 01/05/2024 Overview: Vitamin B6 and Unisom doses reviewed. To notify if prescription is needed. documented as of this encounter (statuses as of 01/05/2024) [facility] History of Past illness Narrative* Problem Noted Date Diagnosed Date Resolved Date with uncertain que es in first trimester 10/22/2023 01/05/2024 Overview: POCUS consistent with LMP. Nausea and vomiting during 10/22/2023 01/05/2024 Overview: Vitamin B6 and Unisom doses reviewed. To notify if prescription is needed. documented as of this encounter (statuses as of 01/05/2024) [facility] History of Past illness Narrative* Problem Noted Date Diagnosed Date Resolved Date with uncertain que es in first trimester 10/22/2023 01/05/2024 Overview: POCUS consistent with LMP. Nausea and vomiting during 10/22/2023 01/05/2024 Overview: Vitamin B6 and Unisom doses reviewed. To notify if prescription is needed. documented as of this encounter (statuses as of 01/14/2024) [facility] History of Past illness Narrative* Problem Noted Date Diagnosed Date Resolved Date with uncertain que es in first trimester 10/22/2023 01/05/2024 Overview: POCUS consistent with LMP. Nausea and vomiting during 10/22/2023 01/05/2024 Overview: Vitamin B6 and Unisom doses reviewed. To notify if prescription is needed. documented as of this encounter (statuses as of 01/20/2024) [facility] of Past illness Narrative* Problem Noted Date Diagnosed Date Resolved Date with uncertain que es in first trimester 10/22/2023 01/05/2024 Overview: POCUS consistent with LMP. Nausea and vomiting during 10/22/2023 01/05/2024 Overview: Vitamin B6 and Unisom doses reviewed. To notify if prescription is needed. documented as of this encounter (statuses as of 01/28/2024) [facility] History of Present illness Narrative* Berta Eldridge APRN.YOU - 07/06/2023 3:52 PM EDT iGorgio is a 22 year old who presents for an annual gynecologic exam without complaints. Menses: cycles every 28-30 days and 7 days of flow. Contraception: none HPV vaccine: Yes Last Pap: 07/10/2022 normal HPV: negative History of abnormal pap: No Last mammogram: never Sexually active: Yes History of STDS: chlamydia, GC, and trichomonas Pain with intercourse: No Postcoital bleeding: No Hot flashes: No Night sweats: No Vaginal dryness: No OB History T0 L0 SAB0 IAB0 Ectopic0 Multiple0 Live Births0 Guest House Manager History LMP: 06/25/2023 (Exact Date), Having periods Age at Menarche: Age at First : Age at Menopause: Guest House Manager History Comments: Sexual Activity: Yes; Male Contraception: Implant PAST MEDICAL HISTORY Diagnosis Date Abnormal Pap smear of cervix 07/2019 LSIL Bacterial vaginosis Chlamydia infection 07/2019 Exercise-induced asthma Generalized anxiety disorder Infectious mononucleosis 01/2017 Trichimoniasis PAST SURGICAL HISTORY Procedure Laterality Date NONE FAMILY HISTORY Problem Relation Age of Onset No Known Problems Father No Known Problems Sister No Known Problems Sister No Known Problems Brother No Known Problems Brother No Known Problems Brother No Known Problems Brother No Known Problems Brother No Known Problems Brother No Known Problems Brother Stroke Maternal Grandfather other (Asthma) Other Grandparent SOCIAL HISTORY Social History Tobacco Use Smoking status: Former Smokeless tobacco: Never Tobacco comments: vaping Vaping Use Vaping Use: current everyday user Substances: Nicotine, Flavoring Devices: Pre-filled or refillable cartridge Substance Use Topics Alcohol use: No Drug use: Not Currently Types: Marijuana REVIEW OF SYSTEMS Abdomen: No abdominal pain, nausea, vomiting, diarrhea, or constipation. No bloating, early satiety, indigestion, or increased flatulence. Bladder: No dysuria, gross hematuria, urinary frequency, urinary urgency, or incontinence. Breast: No breast lumps, nipple d/c, overlying skin changes, redness or skin retraction. Allergies and current medication updated:Yes EXAM: BP 108/62 Ht 5' 6" (1.68m) Wt 141 lb 9.6 oz (64.2kg) LMP 06/25/2023 BMI 22.87 kg/(m^2). GENERAL: pleasant, female in no apparent distress HEENT: Normocephalic, atraumatic, and mucus membranes moist NECK: Supple and full range of motion DERMATOLOGY: Normal, without lesions, non-icteric, and non-hirsute BREAST: soft, non-tender, symmetric, no dominant mass, normal nipple-areolar complex, no lymphadenopathy, and no nipple discharge CHEST: Normal inspiratory effort ABDOMEN: soft, non-tender, and no masses PELVIC: external genitalia normal, normal Bartholin's glands, urethra, Mccomb's glands, no vulvar lesions, no cervical lesions, good vaginal support, physiologic discharge present, normal appearing perineal body and perianal region BIMANUAL: uterus normal size, shape and consistency, no adnexal masses, non- tender, and no cervicalmotion tenderness RECTOVAGINAL: deferred. NEURO: alert and oriented x3,exam grossly non-focal EXTREMITIES: normal ASSESSMENT/PLAN: 1) Health maintenance: Pap/HPV up to date. Nutrition, exercise and routine health maintenance exams reviewed. HPV vaccine: completed series 2) Contraception: none. Contraceptive options reviewed and information provided.- Patient declines contraception. Stated would like to be . Reviewed starting vitamins 3) STD screening: Accepted STD check for Gonorrhea and Chlamydia. Requesting screening for BV/YEAST 4) Follow up one year or sooner as needed Berta Eldridge APRN.CNM documented in this encounterBethesda North Hospital03-20-2023 Miscellaneous Notes* Telephone Encounter - Orly Holloway RN - 12/29/2022 8:51 AM EDT Patient notified and voiced understanding. Orly Holloway RN * Telephone Encounter - Karina Manning RN - 12/29/2022 8:50 AM EDT See Mychart message. Karina Manning RN * Telephone Encounter - Amarilis Berry APRN.CNP - 12/29/2022 6:57 AM EDT Please notify patient that she does have a yeast infection. I would like her to use Monistat 7 (or generic) 1 of a applicator full every night for 7 nights. The Diflucan will not clear this type of yeast. If symptoms do not improve please esa the office. Amarilis Berry APRN.CNP documented in this encounterBethesda North Hospital03-20-2023 Miscellaneous Notes* Telephone Encounter - Orly Holloway RN - 12/29/2022 8:49 AM EDT See phone encounter dated 12/29/2022. Orly Holloway RN documented in this encounterBethesda North Hospital03-17-2023 History of Present illness Narrative* Amarilis Berry APRN.CNP - 12/26/2022 2:30 PM EDT Transplant Immunologist offered: Patient declines. Jackson Ny is a 22 year old female who presents for UTI follow up from ED HPI: Patient was seen in the ED on 12/14/2022 for urinary tract infection she presents today for a recheck because she does not really feel like the infection is clearing . She has not completed the antibiotic this time and also feels like she is getting a yeast infection. She would also like tested for STDs while she is here today OB History T0 L0 SAB0 IAB0 Ectopic0 Multiple0 Live Births0 Guest House Manager History LMP: LMP Unknown, Having periods Age at Menarche: Age at First : Age at Menopause: Guest House Manager History Comments: Sexual Activity: Yes; Male; Nexplanon Contraception: Implant PAST MEDICAL HISTORY Diagnosis Date Abnormal Pap smear of cervix 07/2019 LSIL Bacterial vaginosis Chlamydia infection 07/2019 Exercise-induced asthma Generalized anxiety disorder Infectious mononucleosis 01/2017 Trichimoniasis PAST SURGICAL HISTORY Procedure Laterality Date NONE FAMILY HISTORY Problem Relation Age of Onset No Known Problems Father No Known Problems Sister No Known Problems Sister No Known Problems Brother No Known Problems Brother No Known Problems Brother No Known Problems Brother No Known Problems Brother No Known Problems Brother No Known Problems Brother Stroke Maternal Grandfather other (Asthma) Other Grandparent Social History Tobacco Use Smoking status: Former Smokeless tobacco: Never Tobacco comments: vaping Vaping Use Vaping Use: current everyday user Substances: Nicotine, Flavoring Devices: Pre-filled or refillable cartridge Substance Use Topics Alcohol use: No Drug use: Not Currently Types: Marijuana Current Outpatient Medications Medication Sig QUEtiapine (SEROQUEL) 50 mg tablet 300 mg. sertraline (ZOLOFT) 100 mg tablet Take 150 mg by mouth once daily. 1 and a half daily prazosin HCl (PRAZOSIN ORAL) Take 2 mg by mouth. FLORAJEN ACIDOPHILUS 20 billion cell cap TAKE ONE CAPSULE BY MOUTH EVERY DAY (Patient not taking: No sig reported) acyclovir (ZOVIRAX) 400 mg tablet TAKE 1 TABLET THREE TIMES DAILY FOR 5 DAYS (Patient not taking: No sig reported) mineral oil/hydrophil petrolatum (AQUAPHOR) oint Apply to affected area as needed. (Patient not taking: No sig reported) hydrOXYzine pamoate (VISTARIL) 25 mg capsule Take 1 capsule by mouth three times daily as needed. etonogestrel (NEXPLANON) subdermal implant 68 mg 1 Each by SUBDERMAL route as directed. No current facility-administered medications for this visit. Allergies As of Date: 12/26/2022 Allergen Noted Reaction AMOXICILLIN 11/24/2013 Swelling Fully Assessed 12/26/2022 REVIEW OF SYSTEMS Abdomen: No bloating, early satiety, indigestion, or increased flatulence. No abdominal pain, nausea, vomiting, diarrhea, or constipation. Bladder: discomfort with urination. Expanded ROS: N/A Allergies and current medication updated:Yes EXAM: BP 110/80 Wt 170 lb 3.2 oz (77.2kg) GENERAL: pleasant, female in no apparent distress HEENT: Normocephalic, atraumatic, and no lesions CHEST: Normal inspiratory effort PELVIC: external genitalia normal, normal Bartholin's glands, urethra, Mccomb's glands, no vulvar lesions, no cervical lesions, good vaginal support, normal appearing perineal body and perianal region, white discharge noted BIMANUAL: uterus normal size, shape and consistency, no adnexal masses, and non-tender NEURO: alert and oriented x3,exam grossly non-focal ASSESSMENT/PLAN: 1. Dysuria - ICD9: 788.1, ICD10: R30.0 (primary diagnosis) acute - UA positive for case esterase and hematuria - Patient education for prevention given - pt instruction to complete the Atb 2. Screen for STD (sexually transmitted disease) - ICD9: V74.5, ICD10: Z11.3 - BACTERIAL VAGINOSIS AMPLIFICATION - DAX / TRICHOMONAS AMPLIFICATION - GC/CHLAMYDIA DNA DET Will notify of results Amarilis Berry APRN.CNP Medical Decision Making: Problems: Low: Acute, uncomplicated illness or injury Data: Unique test(s) ordered: 3+ Risk: Low: Low risk from testing/treatment Medical Decision Making Level: 3 - Low documented in this encounterBethesda North Hospital01-30-2023 History of Present illness Narrative* Elsa Bro MD - 11/10/2022 5:40 PM EST Reason for Visit Patient presents with: Follow Up: urgent care- hands bilateral swollen Jacskon Ny is a 22 year old female who presents here today for Above Complaints.. Health Maintenance MENINGOCOCCAL B: Consider based on risk(1 of 2 - Risk Bexsero 2-dose series) HPV VACCINE(3 - 3-dose series) COVID-19 VACCINE(2 - Booster for Britney series) DTAP,TDAP,TD(7 - Td or Tdap) INFLUENZA(1) DEPRESSION ASSESSMENT HPI Patient was treated for scabies few days ago. Exactly 5 days ago. She used permethrin cream and thehad a shower following that. Her main concern today is swelling of the hands. She said it was worsea couple days ago but today she is much better. There was some swelling and discoloration of the dorsal surface of the hands at the time of the dermatitis versus scabies that she had and she thinks now that it is resolving things are getting better. No problem-specific Assessment & Plan notes found for this encounter. PAST MEDICAL HISTORY Diagnosis Date Abnormal Pap smear of cervix 07/2019 LSIL Bacterial vaginosis Chlamydia infection 07/2019 Exercise-induced asthma Generalized anxiety disorder Infectious mononucleosis 01/2017 Trichimoniasis PAST SURGICAL HISTORY Procedure Laterality Date NONE FAMILY HISTORY Problem Relation Age of Onset No Known Problems Father No Known Problems Sister No Known Problems Sister No Known Problems Brother No Known Problems Brother No Known Problems Brother No Known Problems Brother No Known Problems Brother No Known Problems Brother No Known Problems Brother Stroke Maternal Grandfather other (Asthma) Other Grandparent Social History Tobacco Use Smoking status: Former Smokeless tobacco: Never Tobacco comments: vaping Vaping Use Vaping Use: current everyday user Substances: Nicotine, Flavoring Devices: Pre-filled or refillable cartridge Substance Use Topics Alcohol use: No Drug use: Not Currently Types: Marijuana Past medical history, appointments, medications, allergies reviewed. Pertinent Lab/Diagnostic Studies are reviewed and discussed today Current Outpatient Medications: FLORAJEN ACIDOPHILUS 20 billion cell cap acyclovir (ZOVIRAX) 400 mg tablet mineral oil/hydrophil petrolatum (AQUAPHOR) oint QUEtiapine (SEROQUEL) 50 mg tablet sertraline (ZOLOFT) 100 mg tablet prazosin HCl (PRAZOSIN ORAL) hydrOXYzine pamoate (VISTARIL) 25 mg capsule etonogestrel (NEXPLANON) subdermal implant 68 mg Review of Systems CONSTITUTIONAL: No fevers, chills night sweats, unintended weight loss CARDIOVASCULAR: No chest pain, dyspnea, palpitations, orthopnea, PND, ankle edema. PULM: No dyspnea, unexplained cough. GI: No dysphagia/odynophagia, problematic reflux, constipation, diarrhea, changes in stool habits, hematochezia, melena. : No new urinary complaints, including dysuria, gross hematuria or pyuria. NEURO: No new balance problems, peripheral weakness/paresthesias or numbness of concern. Physical Exam BP 122/70 (BP Site: Left Arm, BP Position: Sitting, BP Cuff Size: Large Adult) Pulse 94 Temp 36.2 C (97.2 F) Resp 14 Ht 167.6 cm (5' 6") Wt 82.6 kg (182 lb) LMP 08/08/2022 SpO2 98% BMI 29.38 kg/m General appearance: Well appearing, alert, in no acute distress, well nourished. Skin: I see on her hands hyperpigmentation from tiny pinpoint lesions. There is some minor furrowing of the left hand in 1 webspace but the other interdigital spaces are normal. Wrist joints are normal. Sore to shoulder joints and rest of the joint Head: Normocephalic, no masses, lesions, tenderness or abnormalities Eyes: Anicteric sclera. Pupils are equally round and reactive to light. Extraocular movements are intact. Lungs: Lungs clear to auscultation. No wheezing, rhonchi, rales Heart: RRR without murmur, gallop, or rubs. ASSESSMENT/PLAN: 1. Swelling of both hands - ICD9: 729.81, ICD10: M79.89 This looks more like swelling from the inflammation of the skin from either the bites or dermatitisthat she is having and tightness resulting from that. Follow- up in 2 weeks or sooner with no complaints Elsa Bro MD documented in this encounterBethesda North Hospital01-29-2023 History of Present illness Narrative* KATE Latham - 11/09/2022 1:32 PM EST This note was created using NoteWriter. Subjective Jackson Ny is a 22 year old female. HPI 22-year-old female presents for hand swelling and rash. Patient states that started getting a rash on her hands about a week ago. She states that she has been having pain itching and swelling in the hands for the past few days. Patient was seen at the emergency room 3 days ago and diagnosed with scabies. She used the permethrin cream. She states that they cause burning in her skin. She statesthat she now has worsening swelling and some pain in her hands. No erythematous rash. States the scabies rash is fading a little bit. No fevers. No cough. No oral lesions. She is asking for a note for work. PAST MEDICAL HISTORY Diagnosis Date Abnormal Pap smear of cervix 07/2019 LSIL Bacterial vaginosis Chlamydia infection 07/2019 Exercise-induced asthma Generalized anxiety disorder Infectious mononucleosis 01/2017 Trichimoniasis PAST SURGICAL HISTORY Procedure Laterality Date NONE ALLERGIES Amoxicillin MEDICATIONS QUEtiapine (SEROQUEL) 50 mg tablet 200 mg. sertraline (ZOLOFT) 100 mg tablet Take 100 mg by mouth once daily. 1 and a half daily prazosin HCl (PRAZOSIN ORAL) Take 2 mg by mouth. hydrOXYzine pamoate (VISTARIL) 25 mg capsule Take 1 capsule by mouth three times daily as needed. permethrin (ELIMITE) 5 % cream Apply 1 application to affected area one time only for 1 dose. massage into skin from neck to feet, leave on 8-12hrs, wash off; Info: repeat 2wks if live mites persist.Itching may persist after effective treatment. FLORAJEN ACIDOPHILUS 20 billion cell cap TAKE ONE CAPSULE BY MOUTH EVERY DAY (Patient not taking: No sig reported) acyclovir (ZOVIRAX) 400 mg tablet TAKE 1 TABLET THREE TIMES DAILY FOR 5 DAYS (Patient not taking: No sig reported) mineral oil/hydrophil petrolatum (AQUAPHOR) oint Apply to affected area as needed. (Patient not taking: No sig reported) etonogestrel (NEXPLANON) subdermal implant 68 mg 1 Each by SUBDERMAL route as directed. FAMILY HISTORY Problem Relation Age of Onset No Known Problems Father No Known Problems Sister No Known Problems Sister No Known Problems Brother No Known Problems Brother No Known Problems Brother No Known Problems Brother No Known Problems Brother No Known Problems Brother No Known Problems Brother Stroke Maternal Grandfather other (Asthma) Other Grandparent Social History Tobacco Use Smoking status: Former Smokeless tobacco: Never Tobacco comments: vaping Vaping Use Vaping Use: current everyday user Substances: Nicotine, Flavoring Devices: Pre-filled or refillable cartridge Substance Use Topics Alcohol use: No Drug use: Not Currently Types: Marijuana Review of Systems Constitutional: Negative for chills and fever. HENT: Negative for congestion, ear pain and sore throat. Respiratory: Negative for cough and shortness of breath. Cardiovascular: Negative for chest pain. Gastrointestinal: Negative for diarrhea and vomiting. Musculoskeletal: Positive for myalgias. Skin: Positive for rash. Objective BP 134/88 Pulse 98 Temp 36.6 C (97.9 F) Resp 16 Wt 83.5 kg (184 lb) LMP 08/08/2022 KoC611% BMI 29.70 kg/m Physical Exam Vitals and nursing note reviewed. Constitutional: General: She is not in acute distress. Appearance: Normal appearance. She is not toxic-appearing. HENT: Mouth/Throat: Mouth: Mucous membranes are moist. Pharynx: No oropharyngeal exudate or posterior oropharyngeal erythema. Cardiovascular: Rate and Rhythm: Normal rate and regular rhythm. Pulmonary: Effort: Pulmonary effort is normal. Breath sounds: Normal breath sounds. Musculoskeletal: Right hand: Swelling present. Left hand: Swelling present. Hands: Comments: Rash noted to dorsum of both hands in between webspaces. She has several lesions on her wrists as well. No open or bleeding lesions. No drainage. No purulence. Patient does have some mild swelling bilateral hands. She has full ROM of the hands. Normal cap refill. No signs of cellulitis. No ankle swelling or swelling anywhere else on the body. No other rash. Skin: Findings: Rash present. Comments: Rash noted to dorsum of both hands and in the webspaces. Linear rash noted. Appears consistent with scabies. Neurological: Mental Status: She is alert. Assessment and Plan ASSESSMENT/PLAN: 1. Scabies - ICD9: 133.0, ICD10: B86 (primary diagnosis) - Patient completed 1 dose of permethrin cream 3 days ago. I gave her another prescription for it and advised to repeat this in 1 week if rash and symptoms have not improved. - Itching and bumps may continue for some weeks even though the mite has been removed. - Wash all clothes and put shoes and items that can not be washed in a sealed bag for 3 days. 2. Swelling of both hands - ICD9: 729.81, ICD10: M79.89 - Unsure if this is due to scabies rash or other cause. No signs of edema anywhere else on the body. - Recommend follow up with PCP this week. - Recommend repeat Permethrin cream treatment in 1 week. Diagnosis and treatment plan were discussed and questions were answered to the patient's satisfaction. Pt acknowledged understanding of concepts and follow up plan. Specific signs and symptoms that would indicate the need for higher level of care were discussed in detail warranting prompt ER evaluation. KATE Tidwell [facility] Discharge instructions Patient Education 11/06/2022 18:07:59 Scabies Scabies Scabies is an infection caused by very tiny mites that lamine into the skin. The mites are called Sarcoptes scabiei. They cause severe itching. Though children are most commonly infected, anyone can get scabies. Scabies mites can pass from person to person through close physical contact. They can also be passed through shared clothing, towels, and bedding. Scabies infection is not usually dangerou s, but it is uncomfortable. Because it is so contagious, scabies should be treated immediately to keep the infection from spreading. Symptoms Symptoms of scabies appear about 2 to 6 weeks after infection in a child or adult who has never hadscabies before. A child or adult who has been infected before will experience symptoms much sooner,in 1 to 4 days. Signs of scabies infection may include: Intense itching, especially at night or after a hot bath Skin irritations that look like hives, insect bites, pimples, or blisters, especially on warmer areas of the body (such as between the fingers, in the armpits, and in the creases of the wrists, elbows, and knees) Sores on the body caused by scratching (the sores may become infected) Louann created by mites traveling under the skin, which look like lines on the skin s surface Treating scabies infection Scabies infections are usually treated with a prescription lotion that kills the mites. The lotion must be applied to the entire body from the neck down. This includes the palms of the hands, soles of the feet, groin, and under the fingernails. The lotion must be left on for 8 to 14 hours. The lotion is usually applied at night before bed and then washed off the next morning. In some cases, a second application of lotion is needed a week after the first. Medicines work quickly, but most children and adults continue to have an itchy rash for several weeks after treatment. Paez on the skin from scabies usually go away in 1 to 2 weeks, but sometimes take a few months to clear. If the topical creams are not effective, an oral medication may be prescribed. Preventing spread of the infection To prevent reinfection and the spread of scabies to others, follow these instructions: Wash the infected person s clothing, towels, bed linens, cloth toys, and other personal items in very hot, soapy water Dry them thoroughly in a dryer set on the hot cycle. If an item cannot be laundered, have the item dry cleaned. Do not share among family members. Seal items that can t be washed in plastic bags for at least 3 days and possibly up to 1 week. Vacuum floors and furniture. Throw the vacuum bag away afterward. Notify an infected child s school and caregivers so that other children can be checked and treated. Keep an infected child home from daycare or school until the morning after treatment for scabies. Warn children not to share items such as clothing and towels with other children. Be aware that all household members who may have been exposed to scabies may need to be treated, whether they show symptoms or not. Talk with your healthcare provider. Do not spray your house with chemicals or pesticides. These can be dangerous to your family s health. When to call your healthcare provider The infected person has a fever (00.4 degrees F (38degrees C) or higher, or as directed by your provider), red streaks, pain, or swelling of the skin. Yellow brown crusts or drainage from the sores Sores get worse or do not heal. New rashes appear or itching continues for more than 2 weeks after treatment. 4306-0212 [employer]. [address] [place] [id number]. All rights reserved. This information is not intended as a substitute for professional medical care. Always follow yourhealthcare professional's instructions. Follow Up Care 11/06/2022 17:57:32 With:Follow up with primary care provider Address:Unknown [facility] Discharge summary Discharge Instructions Thank you for allowing [facility] to assist you with your healthcare needs. The following is importantdischarge information regarding your hospital visit. Diagnosis from Today's Visit Scabies Skin rash What to Do Next Instructions from Your Care Team No qualifying data available. Post Acute Orders No qualifying data available. You Need to Schedule the Following Appointments Follow Up with Follow up with primary care provider When Within 2-4 days Allergies amoxicillin Medications Please ask your primary doctor or pharmacist before taking any other medication not listed, including over the counter drugs, herbal medications, vitamins and or supplements as they may interact withyour home medications. What How Much When Why Instructions Last Dose New permethrin topical (permethrin 5% topical cream) 1 application Topical Once a day Scabies Duration: 1 Days Scabies: Apply to skin ONCE head to feet, remove by washing after 8 to 14 hours Printed Prescription Unchanged etonogestrel (Nexplanon) 68 Milligram Subcutaneous Once Please take this list to your next doctor s visit. Bring all medications you take, including over the counter medications, herbals and other supplements with you to your doctor s visit. Patients and families are reminded to discard old lists and to update any records with all medication providers or retail pharmacies. Education Materials Scabies Scabies is an infection caused by very tiny mites that lamine into the skin. The mites are called Sarcoptes scabiei. They cause severe itching. Though children are most commonly infected, anyone can get scabies. Scabies mites can pass from person to person through close physical contact. They can also be passed through shared clothing, towels, and bedding. Scabies infection is not usually dangerou s, but it is uncomfortable. Because it is so contagious, scabies should be treated immediately to keep the infection from spreading. Symptoms Symptoms of scabies appear about 2 to 6 weeks after infection in a child or adult who has never hadscabies before. A child or adult who has been infected before will experience symptoms much sooner,in 1 to 4 days. Signs of scabies infection may include: Intense itching, especially at night or after a hot bath Skin irritations that look like hives, insect bites, pimples, or blisters, especially on warmer areas of the body (such as between the fingers, in the armpits, and in the creases of the wrists, elbows, and knees) Sores on the body caused by scratching (the sores may become infected) Louann created by mites traveling under the skin, which look like lines on the skin s surface Treating scabies infection Scabies infections are usually treated with a prescription lotion that kills the mites. The lotion must be applied to the entire body from the neck down. This includes the palms of the hands, soles of the feet, groin, and under the fingernails. The lotion must be left on for 8 to 14 hours. The lotion is usually applied at night before bed and then washed off the next morning. In some cases, a second application of lotion is needed a week after the first. Medicines work quickly, but most children and adults continue to have an itchy rash for several weeks after treatment. Paez on the skin from scabies usually go away in 1 to 2 weeks, but sometimes take a few months to clear. If the topical creams are not effective, an oral medication may be prescribed. Preventing spread of the infection To prevent reinfection and the spread of scabies to others, follow these instructions: Wash the infected person s clothing, towels, bed linens, cloth toys, and other personal items in very hot, soapy water Dry them thoroughly in a dryer set on the hot cycle. If an item cannot be laundered, have the item dry cleaned. Do not share among family members. Seal items that can t be washed in plastic bags for at least 3 days and possibly up to 1 week. Vacuum floors and furniture. Throw the vacuum bag away afterward. Notify an infected child s school and caregivers so that other children can be checked and treated. Keep an infected child home from daycare or school until the morning after treatment for scabies. Warn children not to share items such as clothing and towels with other children. Be aware that all household members who may have been exposed to scabies may need to be treated, whether they show symptoms or not. Talk with your healthcare provider. Do not spray your house with chemicals or pesticides. These can be dangerous to your family s health. When to call your healthcare provider The infected person has a fever (00.4 degrees F (38degrees C) or higher, or as directed by your provider), red streaks, pain, or swelling of the skin. Yellow brown crusts or drainage from the sores Sores get worse or do not heal. New rashes appear or itching continues for more than 2 weeks after treatment. 2090-3375 [employer]. [address] [place] [address], [place] [id number]. All rights reserved. This information is not intended as a substitute for professional medical care. Always follow yourhealthcare professional's instructions. Additional Information VACCINATE! IT SAVES LIVES! Members of the community who have not yet received the COVID-19 vaccine and would like to receive it can visit one of [facility] vaccine clinics. There are many vaccine clinic locations within the [facility]. For locations and available times, please visit [email or web address]. It is important to note that some COVID mobile vaccine clinics are held outdoors and may be canceled in rainy orstormy conditions. To learn more about pediatric vaccinations (ages 5-11), we invite you to visit the [facility] webpage. [email or web address] learn more about the COVID-19 vaccine, we invite you to visit the [facility] website for a list of frequently asked questions. [email or web address] [facility] Stores[facility] Patient Portal Access Instructions: Stay connected with your healthcare team and access your personal medical information anytime with the [facility] Patient Portal. If you would like a full copy of your medical records please contact the [facility] Medical Records Department Thursday through Thursday between 8a.m. and 4:30p.m. Please follow the directions below to access the portal: 1.Access the email account you provided upon registration to the [facility].2.Look for an invitation email from [facility].3.Open the email and access the invitation link: Accept Invitation to [facility].Fill in the required sampson to create your account. Sign into [email or web address] with your username and password that you created in the above steps to stay up to date. You can then view a summary of results, a summary of your visits, and the ability to download your summaries to your computer or send the information securely to a physician. Remember that your healthcare information is confidential, so carefully consider who you will allow to register on the [facility] Patient Portal for access to your information. You can also access the [facility] Patient Portal on the [employer]. Simply click on "Health Records" under "[facility]" and then click on the [facility] logo. HOW TO SAFELY DISPOSE OF PRESCRIPTION MEDICATIONS Please use one of the following methods to safely dispose of your unused medications. 1.Use a drug disposal kit: the drug disposal pouch allows you to safely discard your old and unuseddrugs. Ask your nurse to give you one when you are discharged.2.Visit a local take-back location: Many local pharmacies and police departments have programs that collect old and unwanted prescriptiondrugs. Call your local pharmacy or go to http://MedPageToday.Wireless Toyz/5F8Zo3v to find one close to you.3.Make use of household items: Use cat litter or old coffee grounds to dispose medications if other options arenot available. Mix your drugs with these household products, seal them in an airtight container andthrow it into the garbage. Call [facility]: [phone] to be sure your drugs can be disposed of in this way. Some medicines may require a different approach.4.Never flush your medications down the toilet. IF YOU HAVE BEEN PRESCRIBED AN OPIOIDS FOR PAIN If you have been prescribed an opioid (such as hydrocodone, oxycodone or morphine), it is critical to understand the possible side effects and risks of opioid pain medications. Even when taken as directed, opioids can have several side effects including: Tolerance, meaning you might need to take more of a medication for the same pain relief. Nausea, vomiting and/or constipation. Sleepiness, dizziness, dry mouth, confusion, depression or itching. Physical dependence, meaning you have withdrawal symptoms when a medication is stopped ? this can develop within a few days. KNOW YOUR RESPONSIBILITIES It is important to know exactly how much and how often to take the opioid pain medications you are prescribed. Never take opioids in higher amounts or more often than prescribed. Do not combine opioids with alcohol or other drugs that cause drowsiness, such as benzodiazepines, also known as benzos,including diazepam and alprazolam, muscle relaxants or sleep aids. Never sell or share prescriptionopioids. This is illegal. Store opioids in a secure place and out of reach of others (including children, family, friends and visitors). The last page(s) of this document has been signed and retained as a CHART COPY Signatures Patient Education Materials Scabies Medication Leaflets My discharge plan and instructions have been reviewed and explained to me and I,[place] understand my current condition and have read and understand these discharge instructions. I have received a written copy of the plan/instructions. If I have questions, I am aware that I should contactmy doctor. Patient/Surgical Instruments Inspector Signature: Date/Time: Relationship to Patient: Witness Name/Signature: Date/Time: [facility]11-18-2022 History of Present illness Narrative * Amarilis Berry APRN.UNDERGROUND UTILITY LOCATOR - 08/29/2022 9:05 AM EST Giorgio is a 21 year old who presents for Nexplanon removal for scheduled 3 year removal. UNIVERSAL PROTOCOL / SAFETY CHECKLIST Procedure to be Performed: Nexplanon removal Sign In: A Moment of CARE was completed. Personnel directly involved with the procedure wore the appropriate PPE (Personal Protective Equipment). Patient/Surrogate Stated/Verified: PATIENT VERIFIED(optional for EMERGENT procedures): Patient name, Date of , Relevant allergies, and The intended procedure Time Out Communication: Intended patient and procedure match the source documents. Consent documented and matches the intended procedure. Sign Out: SIGN OUT (optional for EMERGENT procedures): No specimen collected. All instruments, equipment, possible retained foreign bodies accounted for. Elana Ceballos LPN TECHNIQUE: Patient placed in supine position with left arm bent at the elbow and placed over the head. Skin cleansed with betadine. 2mL of 1% lidocaine with epi injected subQ along insertion site. Scalpel used to made a 5mm stab incision superficially at distal end of Nexplanon. Device removed under sterile technique with a small hemostat. Sterile pressure dressing applied. A&P: 21 year old here for Nexplanon removal Nexplanon removed intact without difficulty. The patient was instructed to remove the dressing after 24 hours. Contraceptive plans none Amarilis Berry APRN.LORI documented [facility]Bet[facility] Miscellaneous Notes* Telephone Encounter - Alyson Barksdale RN - 07/31/2022 10:56 AM EDT Last annual with CP 07/01/22. +yeast then. Does she need to continue taking these? Requested Prescriptions Pending Prescriptions Disp Refills FLORAJEN ACIDOPHILUS 20 billion cell cap [Pharmacy Med Name: FLORAJEN ACIDOPHILUS CAPS] 30 capsule 0 Sig: TAKE ONE CAPSULE BY MOUTH EVERY DAY RX INSTRUCTIONS: Pharmacy initiated this request. No need to notify patient. Alyson Barksdale RN documented in this encounterBet[facility]09-[facility]22 Miscellaneous Notes* Telephone Encounter - Alyson Barksdale RN - 07/02/2022 3:23 PM EDT Patient notified. Alyson Barksdale RN * Telephone Encounter - Binta Carcamo APRN.CNM - 07/02/2022 2:59 PM EDT Please notify patient she is positive of yeast infection. Prescription front for Diflucan 150 mg p.o. once daily. Also Florajen women's health probiotic. No intercourse for 7 days. Please let me knowif you have any other questions or concerns. documented in this encounterBet[facility]09-[facility]-2022 History of Present illness Narrative* Berta Eldridge APRN.CNM - 07/01/2022 10:32 AM EDT Transplant Immunologist offered: Patient declines. Giorgio is a 21 year old who presents for an annual gynecologic exam without complaints. Menses: cycles every 30 days and 7 days of flow. Contraception: Nexplanon- Due for removal 08/2022 HPV vaccine: YES Last Pap: 01/17/2021 abnormal, LSIL HPV: negative History of abnormal pap: Yes Last mammogram: n/a Sexually active: Yes History of STDS: chlamydia, GC, and trichomonas Pain with intercourse: No Postcoital bleeding: No OB History T0 L0 SAB0 IAB0 Ectopic0 Multiple0 Live Births0 Guest House Manager History LMP: 04/12/2022, Implant Age at Menarche: Age at First : Age at Menopause: Guest House Manager History Comments: Sexual Activity: Yes; Male; Nexplanon Contraception: Implant PAST MEDICAL HISTORY Diagnosis Date Abnormal Pap smear of cervix 07/2019 LSIL Bacterial vaginosis Chlamydia infection 07/2019 Exercise-induced asthma Generalized anxiety disorder Infectious mononucleosis 01/2017 Trichimoniasis PAST SURGICAL HISTORY Procedure Laterality Date NONE FAMILY HISTORY Problem Relation Age of Onset No Known Problems Father No Known Problems Sister No Known Problems Sister No Known Problems Brother No Known Problems Brother No Known Problems Brother No Known Problems Brother No Known Problems Brother No Known Problems Brother No Known Problems Brother Stroke Maternal Grandfather other (Asthma) Other Grandparent SOCIAL HISTORY Social History Tobacco Use Smoking status: Former Smokeless tobacco: Never Tobacco comments: vaping Vaping Use Vaping Use: current everyday user Substances: Nicotine, Flavoring Devices: Pre-filled or refillable cartridge Substance Use Topics Alcohol use: No Drug use: Not Currently Types: Marijuana REVIEW OF SYSTEMS Abdomen: No abdominal pain, nausea, vomiting, diarrhea, or constipation. No bloating, early satiety, indigestion, or increased flatulence. Bladder: No dysuria, gross hematuria, urinary frequency, urinary urgency, or incontinence. Breast: No breast lumps, nipple d/c, overlying skin changes, redness or skin retraction. Allergies and current medication updated:Yes EXAM: BP 110/70 Ht 5' 6" (1.68m) Wt 187 lb (84.8kg) LMP 04/12/2022 BMI 30.20 kg/(m^2). LMP 05/2022 GENERAL: pleasant, female in no apparent distress HEENT: Normocephalic and atraumatic NECK: Supple and full range of motion DERMATOLOGY: Normal, without lesions, non-icteric, and non-hirsute BREAST: soft, non-tender, symmetric, no dominant mass, normal nipple-areolar complex, no lymphadenopathy, no nipple discharge, and fibrocystic changes CHEST: Normal inspiratory effort ABDOMEN: soft and non-tender PELVIC: external genitalia normal, normal Bartholin's glands, urethra, Mccomb's glands, no vulvar lesions, no cervical lesions, good vaginal support, physiologic discharge present, normal appearing perineal body and perianal region BIMANUAL: uterus normal size, shape and consistency, no adnexal masses, non- tender, and no cervicalmotion tenderness RECTOVAGINAL: deferred. NEURO: alert and oriented x3,exam grossly non-focal EXTREMITIES: normal ASSESSMENT/PLAN: 1) Health maintenance: Pap done with reflex HPV. Nutrition, exercise and routine health maintenance exams reviewed. HPV vaccine: completed series 2) Contraception: Nexplanon. Contraceptive options reviewed and information provided. 3) STD screening: Accepted STD check for Gonorrhea and Chlamydia. 4) Follow up August 2022 for Nexplanon removal and reinsertion. She is unsure if will have reinsertion. May not want any control. Berta Eldridge APRN.CNM documented in this encounterBet[facility]09-15-[facility]22 Miscellaneous Notes* Telephone Encounter - Karina Manning RN - 06/26/2022 2:57 PM EDT Patient returned call. Notified of appointment change. * Telephone Encounter - Karina Amaya - 06/26/2022 1:16 PM EDT Provider wants patient to have Annual Exam first. Appointment was changed to Annual. Called patientto inform her the appointment was changed. No answer or voicemail. Karina Amaya documented in this encounterBethesda North Hospital09-12-2022 History of Present illness Narrative* Tyler Salmon APRN.UNDERGROUND UTILITY LOCATOR - 06/23/2022 2:46 PM EDT Images from the original note were not included. Subjective HPI HPI Jackson Ny is a 21 year old female who presents today for CC of st, ear pain, dental pain. This started 2 weeks ago. Has tried otc mediation for relief. Symptoms are worsened by nothing. Seen in ER, strep negative. Denies possibility of being . Denies cough, ear drainage, recent swimming, fevers. Uses qtips frequently. .Patient presents with: Ear Pain: L ear pain x2 weeks, L side of throat swollen PAST MEDICAL HISTORY Diagnosis Date Abnormal Pap smear of cervix 07/2019 LSIL Bacterial vaginosis Chlamydia infection 07/2019 Exercise-induced asthma Generalized anxiety disorder Infectious mononucleosis 01/2017 Trichimoniasis PAST SURGICAL HISTORY Procedure Laterality Date NONE ALLERGIES Amoxicillin MEDICATIONS QUEtiapine (SEROQUEL) 50 mg tablet 200 mg. sertraline (ZOLOFT) 100 mg tablet Take 100 mg by mouth once daily. 1 and a half daily hydrOXYzine pamoate (VISTARIL) 25 mg capsule Take 1 capsule by mouth three times daily as needed. etonogestrel (NEXPLANON) subdermal implant 68 mg 1 Each by SUBDERMAL route as directed. acyclovir (ZOVIRAX) 400 mg tablet TAKE 1 TABLET THREE TIMES DAILY FOR 5 DAYS (Patient not taking: Reported on 05/02/2022) predniSONE (DELTASONE) 10 mg tablet Take 4 tabs daily for 3 days, then 2 tabs daily for 3 days, then 1 tab daily for 3 days with food. (Patient not taking: Reported on 03/31/2022 ) mineral oil/hydrophil petrolatum (AQUAPHOR) oint Apply to affected area as needed. prazosin HCl (PRAZOSIN ORAL) Take 2 mg by mouth. FAMILY HISTORY Problem Relation Age of Onset No Known Problems Father No Known Problems Sister No Known Problems Sister No Known Problems Brother No Known Problems Brother No Known Problems Brother No Known Problems Brother No Known Problems Brother No Known Problems Brother No Known Problems Brother Stroke Maternal Grandfather other (Asthma) Other Grandparent Social History Tobacco Use Smoking status: Former Smokeless tobacco: Never Tobacco comments: vaping Vaping Use Vaping Use: Never used Substance Use Topics Alcohol use: No Drug use: Yes Types: Marijuana ROS Objective Blood pressure 118/82, pulse 107, temperature 36.2 C (97.1 F), resp. rate 18, weight 83.5 kg (184 lb), last menstrual period 04/12/2022, SpO2 98 %. Physical Exam Constitutional: General: She is not in acute distress. Appearance: She is not toxic-appearing or diaphoretic. HENT: Head: Normocephalic and atraumatic. Right Ear: Hearing, tympanic membrane, ear canal and external ear normal. Left Ear: Hearing, tympanic membrane, ear canal and external ear normal. Nose: Nose normal. Mouth/Throat: Pharynx: Uvula midline. Posterior oropharyngeal erythema present. No pharyngeal swelling, oropharyngeal exudate or uvula swelling. Eyes: General: Lids are normal. No scleral icterus. Right eye: No discharge. Left eye: No discharge. Conjunctiva/sclera: Conjunctivae normal. Pupils: Pupils are equal, round, and reactive to light. Neck: Trachea: Trachea normal. Pulmonary: Effort: Pulmonary effort is normal. Musculoskeletal: Cervical back: Normal range of motion and neck supple. Lymphadenopathy: Cervical: Cervical adenopathy (small/nontender.) present. Right cervical: Superficial cervical adenopathy present. Left cervical: Superficial cervical adenopathy present. Skin: Findings: No rash. Neurological: Mental Status: She is alert and oriented to person, place, and time. ASSESSMENT/PLAN: 1. Sore throat - ICD9: 462, ICD10: J02.9 (primary diagnosis) - suspect viral - Alere Strep Test neg, no culture pending - Discussed supportive care treatment with fluids, rest and analgesia. - The patient should follow up in 3-5 days if symptoms persist or worsen - ALERE STREP A TEST (AG) 2. Toothache - ICD9: 525.9, ICD10: K08.89 Take medication as ordered See dentist memo Follow up if signs of infection worsen - CLINDAMYCIN HCL 150 MG CAPSULE 3. Feared condition not demonstrated - ICD9: V65.5, ICD10: Z71.1 If s/s yeast infection occur fill/take diflucan - FLUCONAZOLE 150 MG TABLET Agrees to plan Tyler Salmon APRN.CNP documented in this encounterBet[facility]09-03-2022 Hospital Discharge instructions Additional Instructions 1. Salt water gargles 4-6 times a day. 2. Chloraseptic spray or Cepastat lozenges for throat discomfort as instructed on [facility] Work Phone: [phone] History of Present illness Narrative* Linda Felton APRN.CNP - 05/08/2022 3:24 PM EDT Images from the original note were not included. Subjective HPI Jackson Ny is a 21 year old female who presents with left sided neck pain. States she hashad this on and off for "a while", saw an ENT who told her she had a cyst in her throat. Had an ultrasound and was told she has a swollen lymph node. She wants to see a different ENT and see if she can get this taken care of it because it is bothering her persistently. He rates her pain 7/10. She was seen here on 05/02/22 and treated for viral illness and left otitis media. She is on the last day of the antibiotic. She denies fever. Review of Systems Constitutional: Negative for chills and fever. HENT: Negative for congestion and sore throat. Respiratory: Negative for cough. Cardiovascular: Negative. Musculoskeletal: Positive for neck pain. BP 110/64 Pulse 97 Temp 36.4 C (97.6 F) Resp 16 Wt 83.6 kg (184 lb 3.2 oz) LMP 04/12/2022 SpO2 99% BMI 29.51 kg/m PAST MEDICAL HISTORY Diagnosis Date Abnormal Pap smear of cervix 07/2019 LSIL Bacterial vaginosis Chlamydia infection 07/2019 Exercise-induced asthma Generalized anxiety disorder Infectious mononucleosis 01/2017 Trichimoniasis PAST SURGICAL HISTORY Procedure Laterality Date NONE ALLERGIES Amoxicillin MEDICATIONS cefdinir (OMNICEF) 300 mg capsule Take 1 capsule by mouth twice daily for 7 days. mineral oil/hydrophil petrolatum (AQUAPHOR) oint Apply to affected area as needed. QUEtiapine (SEROQUEL) 50 mg tablet 200 mg. sertraline (ZOLOFT) 100 mg tablet Take 100 mg by mouth once daily. 1 and a half daily prazosin HCl (PRAZOSIN ORAL) Take 2 mg by mouth. hydrOXYzine pamoate (VISTARIL) 25 mg capsule Take 1 capsule by mouth three times daily as needed. etonogestrel (NEXPLANON) subdermal implant 68 mg 1 Each by SUBDERMAL route as directed. acyclovir (ZOVIRAX) 400 mg tablet TAKE 1 TABLET THREE TIMES DAILY FOR 5 DAYS predniSONE (DELTASONE) 10 mg tablet Take 4 tabs daily for 3 days, then 2 tabs daily for 3 days, then 1 tab daily for 3 days with food. FAMILY HISTORY Problem Relation Age of Onset No Known Problems Father No Known Problems Sister No Known Problems Sister No Known Problems Brother No Known Problems Brother No Known Problems Brother No Known Problems Brother No Known Problems Brother No Known Problems Brother No Known Problems Brother Stroke Maternal Grandfather other (Asthma) Other Grandparent Social History Tobacco Use Smoking status: Former Smoker Smokeless tobacco: Never Used Tobacco comment: vaping Vaping Use Vaping Use: Never used Substance Use Topics Alcohol use: No Drug use: Yes Types: Marijuana ' Objective Physical Exam Vitals and nursing note reviewed. Constitutional: Appearance: Normal appearance. HENT: Mouth/Throat: Lips: [place]. Mouth: Mucous membranes are moist. Pharynx: Oropharynx is clear. No oropharyngeal exudate, posterior oropharyngeal erythema or uvula swelling. Tonsils: No tonsillar exudate or tonsillar abscesses. 2+ on the left. Neck: Cardiovascular: Rate and Rhythm: Normal rate and regular rhythm. Heart sounds: Normal heart sounds. Pulmonary: Effort: Pulmonary effort is normal. No respiratory distress. Breath sounds: Normal breath sounds. No wheezing or rales. Musculoskeletal: Cervical back: Neck supple. No rigidity or tenderness. Lymphadenopathy: Cervical: Cervical adenopathy (left) present. Neurological: Mental Status: She is alert. ASSESSMENT/PLAN: 1. Throat pain in adult - ICD9: 784.1, ICD10: R07.0 (primary diagnosis) - CONSULT TO ENT 2. Swollen tonsil - ICD9: 474.11, ICD10: J35.1 - CONSULT TO ENT Linda Felton APRN.CNP documented in this encounterBethes[facility]07-28-2022 Instructions* Patient Instructions* Linda Felton APRN.CNP - 05/08/2022 3:23 PM EDT ASSESSMENT/PLAN: 1. Throat pain in adult - ICD9: 784.1, ICD10: R07.0 (primary diagnosis) - CONSULT TO ENT 2. Swollen tonsil - ICD9: 474.11, ICD10: J35.1 - CONSULT TO ENT Linda Felton APRN.UNDERGROUND UTILITY LOCATOR documented in this encounterBethesda North Hospital06-20-2022 History of Present illness Narrative* Ibis Dunne PA-C - 03/31/2022 12:22 PM EDT 03/31/2022 Patient presents with: Ear Pain: right, sore throat x 1 day SUBJECTIVE: This is a 21 year old that is here today for Complaint(s) of sore throat x last night. + MILAD ear discomfort, mostly on the right. Dull ache, but sharp pains with swallowing. Denies fever/chills, cough, nasal congestion, vomiting, diarrhea, MATHUR. No know exposure. No difficulty swallowing. PAST MEDICAL HISTORY Diagnosis Date Abnormal Pap smear of cervix 07/2019 LSIL Bacterial vaginosis Chlamydia infection 07/2019 Exercise-induced asthma Generalized anxiety disorder Infectious mononucleosis 01/2017 Trichimoniasis ALLERGIES Amoxicillin MEDICATIONS Current Outpatient Medications Medication Sig acyclovir (ZOVIRAX) 400 mg tablet TAKE 1 TABLET THREE TIMES DAILY FOR 5 DAYS mineral oil/hydrophil petrolatum (AQUAPHOR) oint Apply to affected area as needed. QUEtiapine (SEROQUEL) 50 mg tablet 100 mg. sertraline (ZOLOFT) 100 mg tablet Take 100 mg by mouth once daily. 1 and a half daily prazosin HCl (PRAZOSIN ORAL) Take 2 mg by mouth. hydrOXYzine pamoate (VISTARIL) 25 mg capsule Take 1 capsule by mouth three times daily as needed. etonogestrel (NEXPLANON) subdermal implant 68 mg 1 Each by SUBDERMAL route as directed. predniSONE (DELTASONE) 10 mg tablet Take 4 tabs daily for 3 days, then 2 tabs daily for 3 days, then 1 tab daily for 3 days with food. (Patient not taking: Reported on 03/31/2022 ) No current facility-administered medications for this visit. SOCIAL HISTORY Social History Tobacco Use Smoking status: Former Smoker Smokeless tobacco: Never Used Tobacco comment: vaping Vaping Use Vaping Use: Never used Substance Use Topics Alcohol use: No Drug use: Yes Types: Marijuana REVIEW OF SYSTEMS See HPI OBJECTIVE: BP 132/72 Pulse 84 Temp 36.7 C (98.1 F) Resp 16 Wt 82.6 kg (182 lb) LMP 10/14/2021 (Within Days) SpO2 99% BMI 29.15 kg/m APPEARANCE Well appearing, alert, in no acute distress, well-hydrated, well nourished. EYES PERRLA, conjunctiva and sclera normal. EARS External ears normal, canals clear. TMs normal MILAD NOSE/SINUS Nares normal. Septum midline. Mucosa normal. No drainage or sinus tenderness. THROAT + erythema MILAD tonsils and posterior pharynx. No exudate. Uvula midline. NECK Supple, no adenopathy; HEART RRR with normal S1 and S2 LUNG clear to auscultation, No wheezing, rhonchi, rales. ASSESSMENT/PLAN: 1. Sore throat - ICD9: 462, ICD10: J02.9 - Alere Strep Test negative, no culture pending - Discussed supportive care treatment with fluids, rest and analgesia. - The patient may also use warm salt water gargles, throat lozenges and/or OTC throat spray as needed and nasal saline gtts and suction prn. - Contagious dz precautions discussed- including considered contagious until on antibiotics for 24 hours - The patient should follow up in 3-5 days if symptoms persist or worsen - Call back if drooling, increased temperature, symptoms of dehydration and/or still sick in one week - STREP A MOLECULAR (POC) - 2019 CORONAVIRUS Suspect viral tonsillitis, r/o COVID vs other viral etiology The patient indicates understanding of these issues and agrees with the plan. Reviewed red flags and when to seek care sooner. Ibis Dunne PA-C documented in this encounterBethesda [facility]04-28-2022 Instructions* Patient Instructions* Binta Hathaway APRN.CNP - 02/06/2022 1:13 PM EDT Patient instructed to: * Use cold compresses, 20 minutes 4-6 times per day * Use Louann Solution and Aveeno products as needed. * Wash all clothes. * Return to primary care provider if no relief in 3-4 days. documented in this encounterBethesda North Hospital04-28-2022 History of Present illness Narrative* Binta Hathaway APRN.CNP - 02/06/2022 1:10 PM EDT This note was created using Sonianriter. Subjective Jackson Ny is a 21 year old female. 21 year old female with PMH asthma, hepatitis, ADHD, bipolar, anxiety, and drug usage presents withcomplaints of rash and cold sores. Rash Acute onset 2 weeks ago Left inner leg +red and raised +itchy States she is allergic to fabric softener sheets, and they were used in her home Otherwise denies new lotions, soaps, or medicines. Denies fever or chills. Denies malaise or fatigue. Denies SOB or dyspnea. States she used Kenalog cream that she had leftover and states that it did not seem to work. Cold sore Acute onset over past few days. Left lip. Recurrent in nature, citing that she has had these since she was 13. She usually takes Acyclovir, but is currently out of the medicine. She is requesting refill. Denies fever or chills. The history is provided by the patient. No insolvency consultant was used. Rash This is a new problem. The current episode started 1 to 4 weeks ago. The problem is unchanged. Location: left innner leg. The rash is characterized by redness and itchiness. It is unknown (?? fabric softener sheet) if there was an exposure to a precipitant. Pertinent negatives include no anorexia, congestion, cough, diarrhea, eye pain, facial edema, fatigue, fever, joint pain, nail changes, rhinorrhea, shortness of breath, sore throat or vomiting. Past treatments include nothing. The treatment provided no relief. Her past medical history is significant for asthma. There is no history of allergies, eczema or varicella. PAST MEDICAL HISTORY Diagnosis Date Abnormal Pap smear of cervix 07/2019 LSIL Bacterial vaginosis Chlamydia infection 07/2019 Exercise-induced asthma Generalized anxiety disorder Infectious mononucleosis 01/2017 Trichimoniasis PAST SURGICAL HISTORY Procedure Laterality Date NONE ALLERGIES Amoxicillin MEDICATIONS acyclovir (ZOVIRAX) 400 mg tablet TAKE 1 TABLET THREE TIMES DAILY FOR 5 DAYS QUEtiapine (SEROQUEL) 50 mg tablet 100 mg. sertraline (ZOLOFT) 100 mg tablet Take 100 mg by mouth once daily. 1 and a half daily prazosin HCl (PRAZOSIN ORAL) Take 2 mg by mouth. hydrOXYzine pamoate (VISTARIL) 25 mg capsule Take 1 capsule by mouth three times daily as needed. etonogestrel (NEXPLANON) subdermal implant 68 mg 1 Each by SUBDERMAL route as directed. predniSONE (DELTASONE) 10 mg tablet Take 4 tabs daily for 3 days, then 2 tabs daily for 3 days, then 1 tab daily for 3 days with food. acyclovir (ZOVIRAX) 800 mg tablet Take 1 tablet by mouth twice daily for 5 days. mineral oil/hydrophil petrolatum (AQUAPHOR) oint Apply to affected area as needed. FAMILY HISTORY Problem Relation Age of Onset No Known Problems Father No Known Problems Sister No Known Problems Sister No Known Problems Brother No Known Problems Brother No Known Problems Brother No Known Problems Brother No Known Problems Brother No Known Problems Brother No Known Problems Brother Stroke Maternal Grandfather other (Asthma) Other Grandparent Social History Tobacco Use Smoking status: Former Smoker Smokeless tobacco: Never Used Tobacco comment: vaping Vaping Use Vaping Use: Never used Substance Use Topics Alcohol use: No Drug use: Yes Types: Marijuana Review of Systems Constitutional: Negative for activity change, appetite change, fatigue and fever. HENT: Positive for mouth sores. Negative for congestion, ear discharge, ear pain, rhinorrhea and sore throat. Eyes: Negative for pain, discharge and itching. Respiratory: Negative for apnea, cough, choking, chest tightness and shortness of breath. Cardiovascular: Negative for chest pain, palpitations and leg swelling. Gastrointestinal: Negative for abdominal pain, anorexia, diarrhea and vomiting. Endocrine: Negative for cold intolerance, heat intolerance and polydipsia. Musculoskeletal: Negative for arthralgias, back pain and joint pain. Skin: Positive for rash. Negative for color change, nail changes and pallor. Allergic/Immunologic: Negative for environmental allergies, food allergies and immunocompromised state. Neurological: Negative for dizziness, facial asymmetry and headaches. Hematological: Negative for adenopathy. Does not bruise/bleed easily. Psychiatric/Behavioral: Negative for agitation and behavioral problems. Objective BP 122/68 Pulse 70 Temp 36.6 C (97.9 F) Resp 18 Wt 81 kg (178 lb 9.6 oz) LMP 10/14/2021 (Within Days) SpO2 99% BMI 28.61 kg/m Physical Exam Vitals and nursing note reviewed. Constitutional: General: She is not in acute distress. Appearance: Normal appearance. She is normal weight. She is not ill-appearing, toxic-appearing or diaphoretic. HENT: Head: Normocephalic and atraumatic. Right Ear: Ear canal and external ear normal. Left Ear: Ear canal and external ear normal. Nose: Nose normal. No congestion or rhinorrhea. Mouth/Throat: Mouth: Mucous membranes are moist. Pharynx: Posterior oropharyngeal erythema (Left inner lip wtih apthous ulceration. ) present. No oropharyngeal exudate. Eyes: General: Right eye: No discharge. Left eye: No discharge. Extraocular Movements: Extraocular movements intact. Conjunctiva/sclera: Conjunctivae normal. Pupils: Pupils are equal, round, and reactive to light. Cardiovascular: Rate and Rhythm: Normal rate and regular rhythm. Pulses: Normal pulses. Heart sounds: Normal heart sounds. No murmur heard. No friction rub. Pulmonary: Effort: Pulmonary effort is normal. No respiratory distress. Breath sounds: Normal breath sounds. No stridor. No wheezing, rhonchi or rales. Chest: Chest wall: No tenderness. Abdominal: General: Abdomen is flat. There is no distension. Palpations: Abdomen is soft. There is no mass. Tenderness: There is no abdominal tenderness. There is no right CVA tenderness, left CVA tenderness, guarding or rebound. Hernia: No hernia is present. Musculoskeletal: General: No swelling, tenderness, deformity or signs of injury. Normal range of motion. Cervical back: Normal range of motion and neck supple. No rigidity. Right lower leg: No edema. Left lower leg: No edema. Lymphadenopathy: Cervical: No cervical adenopathy. Skin: General: Skin is warm and dry. Capillary Refill: Capillary refill takes less than 2 seconds. Coloration: Skin is not jaundiced or pale. Findings: Rash (left inner leg wtih pruritic, erythema and urticaria ) present. No bruising, erythema or lesion. Neurological: General: No focal deficit present. Mental Status: She is alert and oriented to person, place, and time. Cranial Nerves: No cranial nerve deficit. Sensory: No sensory deficit. Motor: No weakness. Coordination: Coordination normal. Gait: Gait normal. Psychiatric: Mood and Affect: Mood normal. Behavior: Behavior normal. Thought Content: Thought content normal. Judgment: Judgment normal. Assessment and Plan ASSESSMENT/PLAN: 1. Dermatitis - ICD9: 692.9, ICD10: L30.9 (primary diagnosis) - Oral Steriod tx -Prednisone burst - Anti itch therapy of OTC 1% Hydrocortisone cream, Oatmeal baths and Oral Benydryl recommended prn - discussed skin care of rash - follow up if symptoms persist or worsen. 2. 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 Changed soap after the rash started because she has felt dry. Living in transitional housing and not able to control detergents in clothing. Has new jeans but after the rashbegan. Outdoor exposure: No. Change in medications: Switched trazadone to seroquel 1 month ago. Recent illness: Improved from illness 2 weeks ago. Treatment: hydrocortisone MEDICATIONS: QUEtiapine (SEROQUEL) 50 mg tablet Take 1 Tablet By Oral Route 1 at bedtime sertraline (ZOLOFT) 100 mg tablet Take 100 mg by mouth once daily. 1 and a half daily prazosin HCl (PRAZOSIN ORAL) Take 2 mg by mouth. hydrOXYzine pamoate (VISTARIL) 25 mg capsule Take 1 capsule by mouth three times daily as needed. etonogestrel (NEXPLANON) subdermal implant 68 mg 1 Each by SUBDERMAL route as directed. ALLERGIES: ALLERGIES Allergen Reactions Amoxicillin Swelling VITALS: BP 122/60 Pulse 110 Temp 37.1 C (98.8 F) Resp 16 Wt 81.2 kg (179 lb) LMP 10/14/2021 (Within Days) SpO2 97% BMI 28.67 kg/m PHYSICAL EXAM: GEN: pleasant, no acute distress, alert SKIN: Rash is on the medial knees and medial proximal lower leg - ~ 15cm on the left and 8cm on theright. The rash is dry and somewhat bumpy with abrasion/excoriation on the tops. ASSESSMENT/PLAN: 1. Rash - ICD9: 782.1, ICD10: R21 Probably contact dermatitis of on certain origin. - TRIAMCINOLONE ACETONIDE 0.1 % TOPICAL CREAM twice a day for 1-2 weeks. Monitor for allergens or irritants which contact the medial knees. Follow up if not improving. Lg Rene MD documented in this encounterBethesda [facility] Hospital10-17-2021 History of Present illness Narrative* Alexander Andrew MD - 07/28/2021 7:36 PM EDT DATE OF SERVICE: 07/26/2021 SUBJECTIVE: This is a 20-year-old female here today with complaint of right lateral foot and ankle pain. She said that her foot fell asleep. When she got up this morning, she went to walk, and she felt a snap and having trouble walking on it. No numbness or tingling distally. No other injury. PAST MEDICAL HISTORY: Significant for anxiety, post-traumatic stress disorder, arthritis, asthma, depression, and some chemical dependency. CURRENT MEDICATIONS: 1. Hydroxyzine. 2. Sertraline. 3. Trazodone. 4. Ibuprofen. ALLERGIES: AMOXICILLIN. SOCIAL HISTORY: Nonsmoker, denies alcohol use currently. FAMILY HISTORY: Heart disease, hypertension, stroke. OBJECTIVE: Her vital signs are stable. She is afebrile. There is mild swelling of the dorsolateral foot. She is tender over the base of the 5th metatarsal. The ankle is not swollen or tender. No laxity. Neurovascular is intact distally. TESTS: X-rays of the foot are negative. IMPRESSION: Right foot sprain. PLAN: Ice and elevate several times a day, limit how much she is up and on it, take ibuprofen or Tylenol for pain, and if it is not improving within the next week follow up with an orthopedic doctor. Alexander Andrew MD /[id number] SSI File#: [id number] END OF DOCUMENT / CHANGE LOG FOLLOWS Last Edited By Elec. Signed By Alexander Andrew MD, Mark MD #HUDMA on 07/31/2021 09:43 ET on 07/31/2021 09:43 ET Revision Number - 2 ^^^ Verified/Reviewed by 07/31/2143 [facility] PATIENT NAME: [place] [address] [place] MEDICAL REC #: [id number] [place] [address] [facility] documented in this encounterBethesda North HospitalDischar summary Author Luis Enrique Bautista [facility] January 16, 2023 6:21am Note Date/Time January 16, 2023 6:12 am [facility] Medical Records Department [address] [place] [address] Emergency Department Summary 01/16/23 MR#: [id number] Acct: [id number] Name: JACKSON [place] Rep #:[id number] 14 : 2000 22 From: Luis Enrique Bautista DO PCP: Elsa Bro MD Status:REG ER Location: ED HPI History of Present Illness Chief Complaint: Complaint Narrative Narrative: Patient is a 22-year-old female who states she was seen roughly 1 month ago secondary to dysuria and found to have a urinary tract infection. She states she was placed on an antibiotic that she "had to take 4 times a day". She states that because of the recurrent nature of the antibiotic she missed multiple doses. She states she is unsure if she ever got truly better from the previous infection. She states now in the last 1 to 2 days she has had urinary frequency urgency and dysuria. She is concerned for repeat UTI. She denies anyvaginal discharge or concern for STD or [facility] Medical History Asthma History of pneumonia History of substance abuse Home Medications phenazopyridine 200 mg tablet (Pyridium) 200 mg PO TID 2 days #6 tabs 01/16/23 [Rx Last Taken Unknown] quetiapine 300 mg tablet (Seroquel) 300 mg PO DAILY 01/16/23 [History Last Taken Unknown] sulfamethoxazole 800 mg-trimethoprim 160 mg tablet (Bactrim DS) 1 tab PO BID 7 days #14 tabs 01/16/23 [Rx Last Taken Unknown] Allergy/AdvReac Type Severity Reaction Status Date / Time amoxicillin [Amoxicillin] Allergy NOT SURE, Verified 01/16/23 05:17 WAS A BABY Family History Mother Depression Substance abuse Brother Depression Grandfather Substance abuse Social History Smoking Status: Current every day smoker tobacco type: cigarettes and e- cigarettes Tobacco: How many years used: 4 alcohol intake: former year quit: 2015 substance use type: former substance user 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 use: 04/09/18 and methamphetamine what type of physical activity do you participate in: yoga, aerobics and weight training frequency: 1-2 times per week ROS ROS ED Constitutional Constitutional ED: Denies chills or fever(s) ENT ENT ED: Denies sore throat Cardiovascular Cardiovascular: Denies chest pain Respiratory/Chest Respiratory/Chest: Denies cough or dyspnea Gastrointestinal Gastrointestinal: Denies abdominal pain, diarrhea, nausea or vomiting Genitourinary Genitourinary ED: Reports dysuria and urinary frequency Musculoskeletal Musculoskeletal: Denies back pain Integumentary Denies rash Neurologic Neurologic: Denies headache(s) Hematologic/Lymphatic Hematologic/Lymphatic: Denies easy bleeding or easy bruising EXAM Physical Exam Const Vital Signs: 01/16/23 05:14 Temperature 97.3 F L Temperature Source Temporal Respiratory Rate 16 Blood Pressure 142/83 H Blood Pressure Mean 102 Pulse Ox 100 Oxygen Delivery Method Room Air Positive well nourished and well developed General Appearance ED: well developed Eyes PERRL and EOMs intact bilaterally Neck supple Resp normal respiratory effort and clear to auscultation bilaterally Cardio regular rate and regular rhythm GI non-distended GI Narrative: Slight suprapubic tenderness with palpation but no voluntary guarding or rigidity Auscultation: normoactive bowel sounds Palpation: soft Back/Spine no CVA tenderness Extremity normal to inspection Neuro oriented x3 and CN's II-XII intact bilaterally Sensorium / Orientation: alert Psych mental status grossly normal Skin no rashes or lesions noted MDM MDM MDM Narrative Medical decision making narrative: Patient arrived to the ER afebrile and in no acute distress. Her constellation of symptoms is most consistent with recurrent urinary tract infection. As she is not febrile or having CVA pain concern for systemic infection such as urosepsis or acute pyelonephritis is low. Also she denied vaginal discharge or concern for STD so I have low concern for pelvic inflammatory disease or a STD as a cause of her symptoms. A UA was obtained and does show +4 bacteria with greater than 100 white cells consistent with infection. Her culture from 1 month ago was reviewed and it was sensitive to Bactrim and as patient had a hard time taking the antibiotic multiple times a day we will use this antibiotic because it is only necessary to take twice a day. Based on the patient's symptoms and worsening urine sample she will be given a shot of Rocephin in the ER. However as she has no signs of urosepsis or pyelonephritis or concern for PID she does not need further evaluation and is otherwise safe for discharge History & Record Review Discussion w/independent historian: Patient and Significant other Lab Data Attestation: I reviewed the patient's lab results. Labs: Laboratory Results - last 24 hr 01/16/23 05:30 Urine Color Yellow Urine Clarity Cloudy Urine pH 8.0 Ur Specific [place] 1.015 Urine Protein 30 H Urine Glucose (UA) Normal Urine Ketones Negative Urine Occult Blood 150 H Urine Nitrite Positive H Urine Bilirubin 3 H Urine Urobilinogen 8 H Ur Leukocyte Esterase 500 H Urine RBC 10-25 SEEN Urine WBC >100 SEEN Ur Squamous Epith Cells 0-5 SEEN Amorphous Sediment 2+ Urine Bacteria 4+ Urine Mucus 0 SEEN Urine Test Negative Discharge Plan Triage Chief Complaint: Complaint ED Provider: Luis Enrique Bautista Dx/Rx/DC Orders Clinical Impression: Urinary tract infection, Former tobacco use, Depression with anxiety Instructions: Urinary Tract Infections in Women Prescriptions: New sulfamethoxazole-trimethoprim [Bactrim DS] 800-160 mg tablet 1 tab PO BID 7 Days Qty: 14 0RF phenazopyridine [Pyridium] 200 mg tablet 200 mg PO TID 2 Days Qty: 6 0RF No Action quetiapine [Seroquel] 300 mg Tablet 300 mg PO DAILY Primary Care Provider: Elsa Bro Referrals: Elsa Bro MD [Primary Care Provider] - Activity Restrictions/Additional Instructions: Please take the antibiotic as directed to help resolve your urinary tract infection. If you have worsening of symptoms or any further concerns please return to the hospital for repeat evaluation Disposition Disposition: Home, Self Care What to do if you have Problems For any increased pain, shortness of breath, bleeding, nausea or vomiting, chestpain, or any unexpected problems, contact your Primary Care Provider. Call [facility] ([phone]) or report to the closest Emergency Room. Call 911 if necessary. 01/16/23620 <Electronically signed by Luis Enrique Bautista DO> Cosigner Signature (if applicable): CC: Elsa Bro MD ~ Signed [facility] Work Phone: Evaluation + Plan note No data available for this section [facility] Evaluation note* Diagnosis Rash- Primary Rash and other nonspecific skin eruption documented in this encounter [facility]* Diagnosis Dermatitis- Primary Contact dermatitis and other eczema, due to unspecified cause Aphthous ulcer of mouth Oral aphthae documented in this encounter [facility]* Diagnosis Sore throat- Primary Acute pharyngitis documented in this encounter [facility] noteNo assessment information availableWMercy Health [facility] Work Phone: Evaluation note* Diagnosis Throat pain in adult- Primary Swollen tonsil Hypertrophy of tonsils alone documented in this encounter [facility]* Diagnosis Sore throat- Primary Acute pharyngitis Toothache Unspecified disorder of the teeth and supporting structures Feared condition not demonstrated Person with feared complaint in whom no diagnosis was made documented [facility] this encounter [facility]* Diagnosis Encounter for gynecological examination (general) (routine) without abnormal findings- Primary Screening for cervical cancer Screening for malignant neoplasm of the cervix Encounter for screening for human papillomavirus (HPV) Special screening examination for human papillomavirus (HPV) Screen for STD (sexually transmitted disease) Screening examination for venereal disease Nexplanon removal Surveillance of previously prescribed implantable subdermal contraceptive Insertion of Nexplanon Insertion of implantable subdermal contraceptive documented in this encounter [facility]* Diagnosis Encounter for Nexplanon removal- Primary Surveillance of previously prescribed implantable subdermal contraceptive documented in this encounter [facility]* Diagnosis Scabies- Primary Swelling of both hands documented [facility] this [facility]* Diagnosis Swelling of both hands- Primary documented in this [facility]* Diagnosis Dysuria- Primary Screen for STD (sexually transmitted disease) Screening examination for venereal disease [facility] Diagnosis Encounter for gynecological examination (general) (routine) without abnormal findings- Primary Recurrent cold sores Herpes simplex without mention of complication Screening for STDs (sexually transmitted diseases) Screening examination for venereal disease documented [facility] this encounter [facility]* Diagnosis 12 weeks gestation of - Primary state, incidental Encounter for supervision of normal first in first trimester Supervision of normal first documented [facility]* Diagnosis Supervision of high risk in second trimester- Primary Unspecified high-risk Tobacco smoking complicating in first trimester Tobacco use disorder complicating , childbirth, or the puerperium, antepartum condition or complication 13 weeks gestation of state, incidental documented in this encounter [facility]* Diagnosis Encounter for anatomic survey- Primary 12 weeks gestation of state, incidental Encounter for supervision of normal first in first trimester Supervision of normal first 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) documented in this encounter [facility]* Diagnosis 19 weeks gestation of - Primary state, incidental Supervision of high risk in second trimester Unspecified high-risk documented in this encounter [facility]* Diagnosis 23 weeks gestation of - Primary state, incidental Supervision of high risk in second trimester Unspecified high-risk Vaginal itching Pruritus of genital organs [facility]* Diagnosis Supervision of high risk in second trimester- Primary Unspecified high-risk 25 weeks gestation of state, incidental Screening for STD (sexually transmitted disease) Screening examination for venereal disease [facility]* Diagnosis 29 weeks gestation of - Primary state, incidental Need for vaccination Need for prophylactic vaccination and inoculation against unspecified single disease Supervision of high risk in second trimester Unspecified high-risk Gastroesophageal reflux disease without esophagitis Esophageal reflux documented in this encounter [facility]* Diagnosis Abnormal maternal glucose tolerance, antepartum- Primary Elevated glucose tolerance test Impaired glucose tolerance test documented in this encounter [facility]* Diagnosis Supervision of high risk in third trimester- Primary Unspecified high-risk 31 weeks gestation of state, incidental Tobacco smoking complicating in first trimester Tobacco use disorder complicating , childbirth, or the puerperium, antepartum condition or complication Gastroesophageal reflux disease without esophagitis Esophageal reflux Anemia during in third trimester [facility]* Diagnosis Suspected problem with growth not found- Primary Supervision of high risk in third trimester Unspecified high-risk 31 weeks gestation of state, incidental documented in this encounter [facility]* Diagnosis 33 weeks gestation of - Primary state, incidental Supervision of high risk in third trimester Unspecified high-risk documented in this encounter [facility]* Diagnosis Supervision of high risk in third trimester- Primary Unspecified high-risk 34 weeks gestation of state, incidental Anemia during in third trimester Elevated BP without diagnosis of hypertension documented in this encounter [facility]* Diagnosis Encounter for ultrasound to check growth- Primary Encounter for routine screening for malformation using ultrasonics Macrosomia of fetus affecting management of mother in third trimester, single or unspecified fetus Tobacco smoking complicating in third trimester Tobacco use disorder complicating , childbirth, or the puerperium, antepartum condition or complication Supervision of high risk in third trimester Unspecified high-risk Anemia during in third trimester 36 weeks gestation of state, incidental documented in this encounter [facility]* Diagnosis Encounter for supervision of high risk in third trimester, antepartum- Primary 36 weeks gestation of state, incidental Anemia during in third trimester Excessive growth affecting management of in third trimester, single or unspecified fetus Tobacco smoking complicating in third trimester Tobacco use disorder complicating , childbirth, or the puerperium, antepartum condition or complication Decreased movements in third trimester, single or unspecified fetus documented in this encounter [facility]* Diagnosis Eustachian tube dysfunction, bilateral- Primary documented in this encounter [facility]* Diagnosis 37 weeks gestation of - Primary state, incidental Encounter for supervision of high risk in third trimester, antepartum [facility]* Diagnosis Pre-eclampsia in third trimester- Primary Mild or unspecified pre-eclampsia, antepartum Care and examination of lactating mother Elevated blood pressure reading Elevated blood pressure reading without diagnosis of hypertension BP check Screening for hypertension [facility]* Diagnosis Care and examination of lactating mother- Primary Elevated blood pressure reading Elevated blood pressure reading without diagnosis of hypertension BP check Screening for hypertension 2 weeks follow-up documented in this encounter [facility]* Diagnosis Recurrent cold sores Herpes simplex without mention of complication documented in this [facility]* Diagnosis care and examination- Primary Routine follow-up Encounter for screening for malignant neoplasm of cervix Screening for malignant neoplasm of the cervix Pre-eclampsia in third trimester Mild or unspecified pre-eclampsia, antepartum documented in this encounter [facility]* Diagnosis Urinary frequency- Primary Vaginal discharge Leukorrhea, not specified as infective Pelvic pressure in female Other specified symptom associated with female genital organs documented in this encounter [facility]* Diagnosis Screen for STD (sexually transmitted disease)- Primary Screening examination for venereal disease Vaginal discharge Leukorrhea, not specified as infective Vaginal itching Pruritus of genital organs documented in this encounter [facility]* Diagnosis HSV (herpes simplex virus) infection- Primary Herpes simplex without mention of complication documented [facility] this [facility]* Diagnosis Vaginal discharge- Primary Leukorrhea, not specified as infective [facility]* Diagnosis Trichomoniasis- Primary Trichomoniasis, unspecified documented in this encounter [facility]* Diagnosis Recurrent cold sores Herpes simplex without mention of complication [facility]* Diagnosis Breakthrough bleeding on Nexplanon- Primary Metrorrhagia documented in this encounter [facility]* Diagnosis Elevated TSH- Primary Nonspecific abnormal results of thyroid function study documented in this encounter [facility]* Diagnosis Acute otitis media, left- Primary Unspecified otitis media COVID-19 documented [facility] encounter [facility]* Diagnosis Diarrhea, unspecified type- Primary Dysfunction of left eustachian tube Dysfunction of Eustachian tube documented in this encounter [facility]* Diagnosis Acquired hypothyroidism- Primary Unspecified hypothyroidism Elevated TSH Nonspecific abnormal results of thyroid function study documented in this encounter [facility] note* Diagnosis Vaginal yeast infection- Primary Candidiasis of vulva and vagina Viral illness Unspecified viral infection, in conditions classified elsewhere and of unspecified site documented in this encounter [facility] note* Diagnosis Vaginal discharge- Primary Leukorrhea, not specified as infective Vaginal itching Pruritus of genital organs Recurrent genital herpes Genital herpes, unspecified documented in this encounter [facility] note* Diagnosis Recurrent genital herpes- Primary Genital herpes, unspecified documented in this encounter [facility] note* Diagnosis Elevated TSH Nonspecific abnormal results of thyroid function study Acquired hypothyroidism Unspecified hypothyroidism documented in this encounter [facility] note* Diagnosis Hypothyroidism, unspecified type Vulvar pruritus Pruritus of genital organs Presence of subdermal contraceptive implant Presence of subdermal contraceptive device documented in this encounter [facility] note* Diagnosis Nexplanon removal- Primary Surveillance of previously prescribed implantable subdermal contraceptive documented in this encounter [facility] note* Diagnosis Acquired hypothyroidism- Primary Unspecified hypothyroidism documented in this encounter [facility] note* Diagnosis Nexplanon removal- Primary Surveillance of previously prescribed implantable subdermal contraceptive documented in this encounter [facility] note* Diagnosis Nausea and vomiting, unspecified vomiting type- Primary Encounter to obtain excuse from work documented in this encounter [facility] note* Diagnosis Annual physical exam- Primary Routine general medical examination at a health care facility Hypothyroidism, unspecified type Heat intolerance Unspecified effects of heat and light Diarrhea, unspecified type Nausea Nausea alone Other fatigue documented in this encounter [facility] note* Diagnosis Elevated TSH Nonspecific abnormal results of thyroid function study Acquired hypothyroidism Unspecified hypothyroidism [facility] Discharge instructions Additional Instructions Please take the antibiotic as directed to help resolve your urinary tract infection. If you have worsening of symptoms or any further concerns please return to the hospital for repeat evaluationWMer[facility] Work Phone: Reason for referral (narrative)* Outpatient Procedure (Routine) - Pending Review Specialty Diagnoses / Procedures Referred By Katy hermosillo Referred To Contact [facility] Diagnoses Insertion of Nexplanon Procedures NEXPLANON INSERTION ETONOGESTREL IMPLANT SYSTEM INSERT DRUG IMPLANT DEVICE Berta Eldridge APRN.NOE [address] [place] [address] [address] Referral ID Status Reason Start Date Expiration Date Visits Requested Visits Authorized [id number] Pending Review Auto-Generat ed Referral 07/01/2022 07/01/2023 1 1 * Outpatient Procedure (Routine) - Pending Review Specialty Diagnoses / Procedures Referred By Contac t Referred To Contact [facility] Diagnoses Nexplanon removal Procedures NEXPLANON REMOVAL REMOVAL NON-BIODEGRADABLE DRUG DELIVERY IMPLANT Berta Eldridge APRN.CNM [address] [place] [address] [address] Referral ID Status Reason Start Date Expiration Date Visits Requested Visits Authorized [id number] Pending Review Auto-Generat ed Referral 07/01/2022 07/01/2023 1 1 [facility] for referral (narrative)* Diagnostic Procedure Only (Routine) - Authorized Specialty Diagnoses / Procedures Referred By Contac t Referred To [facility] Diagnoses 12 weeks gestation of Encounter for supervision of normal first in first trimester Procedures OBSTETRIC ULTRASOUND WHI US PREG UTERUS AFTER 1ST TRIMEST GESTATION Urban Burnett MD [address] [place] [address] [address] Referral ID Status Reason Start Date Expiration Date Visits Requested Visits Authorized [id number] Authorized Auto-Generat ed Referral 11/17/2023 11/16/2024 1 1 [facility] Diagnostic Procedure Only (Routine) - Authorized Specialty Diagnoses / Procedures Referred By Contac t Referred To Contact [facility] Diagnoses Supervision of high risk in third trimester 31 weeks gestation of Procedures OBSTETRIC ULTRASOUND WHI US PREG UTERUS AFTER 1ST TRIMEST 1 GESTATION Berta Eldridge APRN.CNM [address] [place] [address] [address] Referral ID Status Reason Start Date Expiration Date Visits Requested Visits Authorized [id number] Authorized Auto-Generat ed Referral 03/31/2024 03/31/2025 5 1 [facility] for referral (narrative)* Diagnostic Procedure Only (Routine) - New Request Specialty Diagnoses / Procedures Referred By Katy hermosillo Referred To Contact [facility] Diagnoses Decreased movements in third trimester, single or unspecified fetus Procedures BIOPHYSICAL PROFILE US WHI BIOPHYSICAL PROFILE NON-STRESS TESTING Reagan Campos APRN.CNP [address] [place] [address] [address] Referral ID Status Reason Start Date Expiration Date Visits Requested Visits Authorized [id number] New Request Auto-Generat ed Referral 04/29/2024 04/29/2025 10 1 [facility] for referral (narrative)No reason for referral information availableWMercy Health [facility] Work Phone: Summary Purpose Family History No Family History Records Found Relationship Condition Age at Onset Recorded Date/T will mother Depression Unknown Substance abuse Unknown brother Depression Unknown grandfather Substance abuse Unknown Advance Directives No Advanced Directives Records Found Advance Directive Response Recorded Date/ Time Living Will No May 08, 2022 1:03am Power of Residential Energy Auditor No May 08 1:03am Advance Directive Response Recorded Date/ Time Living Will No June 14 8:44pm Power of Residential Energy Auditor No June 14, 2022 8:44pm Advance Directive Response Recorded Date/ Time Living Will No January 16, 2023 5:16am Power of Residential Energy Auditor No January 16 5:16am Advance Directive Response Recorded Date/ Time Living Will No March 12, 2023 5 :43pm Power of Residential Energy Auditor No March 12, 2023 5:43pm Advance Directive Response Recorded Date/ Time Do you have a Healthcare Power of Residential Energy Auditor? No April 15, 2025 5:35pm Chief Complaint and Reason for Visit Chief Complaint LEFT EAR, NECK PAIN Chief Complaint LEFT EAR, NECK PAIN sore throat Chief Complaint UTI gu Chief Complaint UTI gu N/V Chief Complaint Admit Date COUGH April 15, 2025 5:29p m Reason for Referral Specialty Diagnoses / Procedures Referred By Contac t Referred To Contact Ent - Otolaryngology Diagnoses Throat pain in adult Swollen tonsil Procedures CONSULT TO ENT OFFICE/OUTPATIENT [facility] [place] 60-74 MINUTES Linda Felton, SUPERVISOR FRAME [employer]SEMBLY.UNDERGROUND UTILITY LOCATOR [address] [place] [address] Referral ID Status Reason Start Date Expiration Date Visits Requested Visits Authorized [id number] Authorized PCP Requested Referral 05/08/2022 05/08/2023 1 1 Specialty Diagnoses / Procedures Referred By Contac t Referred To Contact Diagnoses Pre-eclampsia in third trimester Procedures CONSULT TO PREVENTIVE CARD OFFICE/OUTPATIENT [facility] [place] 60 MINUTES Mihir Albright MD [address] [place] [address] Referral ID Status Reason Start Date Expiration Date Visits Requested Visits Authorized [id number] Authorized PCP Requested Referral 06/24/2024 06/24/2025 1 1 Specialty Diagnoses / Procedures Referred By Contac t Referred To Contact Endocrinology Diagnoses Elevated TSH Procedures CONSULT TO ENDOCRINOLOGY OFFICE/OUTPATIENT [facility] [place] 60 MINUTES Reagan Campos SUPERVISOR FRAME ASSEMBLY.UNDERGROUND UTILITY LOCATOR [address] [place] [address] Referral ID Status Reason Start Date Expiration Date Visits Requested Visits Authorized [id number] Pending Review PCP Requested Referral 10/27/2024 10/27/2025 1 1 Health Concerns Problem Noted Date Diagnosed Date [facility] - [facility] 10/22/2023 [place] - [place] 10/22/2023 Problem Noted Date Diagnosed Date [facility] - [facility] 10/22/2023 [place] - [place] 10/22/2023 Problem Noted Date Diagnosed Date [facility] - [facility] 10/22/2023 [place] - [place] 10/22/2023 Problem Noted Date Diagnosed Date [facility] - [facility] 10/22/2023 [place] - [place] 10/22/2023 Problem Noted Date Diagnosed Date [facility] - [facility] 10/22/2023 Education - [place] 10/22/2023 Problem Noted Date Diagnosed Date [facility] - [facility] 10/22/2023 Education - [place] 10/22/2023 Active Problems Noted Date Diagnosed Date [facility] - [facility] 10/22/2023 Education - [place] 10/22/2023 Active Problems Noted Date Diagnosed Date [facility] - [facility] 10/22/2023 Education - [place] 10/22/2023 Active Problems Noted Date Diagnosed Date [facility] - [facility] 10/22/2023 Education - [place] 10/22/2023 Active Problems Noted Date Diagnosed Date [facility] - [facility] 10/22/2023 Education - [place] 10/22/2023 Active Problems Noted Date Diagnosed Date [facility] - [facility] 10/22/2023 Education - [place] 10/22/2023 Active Problems Noted Date Diagnosed Date [facility] - [facility] 10/22/2023 Education - [place] 10/22/2023 Additional Source Comments INFORMATION SOURCE (unrecogn ized section and content) DATE CREATED AUTHOR [facility] DATE CREATED AUTHOR AUTHOR'S ORGANIZ ATION 11/24/2021 [facility] DATE CREATED AUTHOR AUTHOR'S ORGANIZ ATION 11/10/2022 [facility] DATE CREATED AUTHOR AUTHOR'S ORGANIZ ATION 08/20/2025 [facility] DATE CREATED AUTHOR AUTHOR'S ORGANIZ ATION 08/23/2025 [facility] Source Comments (unrecognize d section and content) In the event this informatio n is protected by the Federal Confidentiality of Alcohol and Drug Abuse Patient Records regulations: The Federal rules restrict any use of the information to criminally investigate or prosecute any alcohol or drug abuse patient.[facility] the event this information is protected by the Federal Confidentiality of Alcohol and Drug Abuse Patient Records regulations: The Federal rules restrict any use of the information to criminally investigate or prosecute any alcohol or drug abuse patient.[facility]In the event this information is protected by the Federal Confidentiality of Alcohol and Drug Abuse Patient Records regulations: The Federal rules restrict any use of the information to criminally investigate or prosecute any alcohol or drug abuse patient.[facility]In the event this information is protected by the Federal Confidentiality of Alcohol and Drug Abuse Patient Records regulations: The Federal rules restrict any use of the information to criminally investigate or prosecute any alcohol or drug abuse patient.[facility]In the event this information is protected by the Federal Confidentiality of Alcohol and Drug Abuse Patient Records regulations: The Federal rules restrict any use of the information to criminally investigate or prosecute any alcohol or drug abuse patient.[facility]In the event this information is protected by the Federal Confidentiality of Alcohol and Drug Abuse Patient Records regulations: The Federal rules restrict any use of the information to criminally investigate or prosecute any alcohol or drug abuse patient.[facility]In the event this information is protected by the Federal Confidentiality of Alcohol and Drug Abuse Patient Records regulations: The Federal rules restrict any use of the information to criminally investigate or prosecute any alcohol or drug abuse patient.[facility]In the event this information is protected by the Federal Confidentiality of Alcohol and Drug Abuse Patient Records regulations: The Federal rules restrict any use of the information to criminally investigate or prosecute any alcohol or drug abuse patient.[facility]In the event this information is protected by the Federal Confidentiality of Alcohol and Drug Abuse Patient Records regulations: The Federal rules restrict any use of the information to criminally investigate or prosecute any alcohol or drug abuse patient.[facility] the event this information is protected by the Federal Confidentiality of Alcohol and Drug Abuse Patient Records regulations: The Federal rules restrict any use of the information to criminally investigate or prosecute any alcohol or drug abuse patient.[facility]In the event this information is protected by the Federal Confidentiality of Alcohol and Drug Abuse Patient Records regulations: The Federal rules restrict any use of the information to criminally investigate or prosecute any alcohol or drug abuse patient.[facility] HospitalIn the event this information is protected by the Federal Confidentiality of Alcohol and Drug Abuse Patient Records regulations: The Federal rules restrict any use of the information to criminally investigate or prosecute any alcohol or drug abuse patient.[facility] the event this information is protected by the Federal Confidentiality of Alcohol and Drug Abuse Patient Records regulations: The Federal rules restrict any use of the information to criminally investigate or prosecute any alcohol or drug abuse patient.[facility] HospitalIn the event this information is protected by the Federal Confidentiality of Alcohol and Drug Abuse Patient Records regulations: The Federal rules restrict any use of the information to criminally investigate or prosecute any alcohol or drug abuse patient.[facility] HospitalIn the event this information is protected by the Federal Confidentiality of Alcohol and Drug Abuse Patient Records regulations: The Federal rules restrict any use of the information to criminally investigate or prosecute any alcohol or drug abuse patient.[facility] HospitalIn the event this information is protected by the Federal Confidentiality of Alcohol and Drug Abuse Patient Records regulations: The Federal rules restrict any use of the information to criminally investigate or prosecute any alcohol or drug abuse patient.[facility] HospitalIn the event this information is protected by the Federal Confidentiality of Alcohol and Drug Abuse Patient Records regulations: The Federal rules restrict any use of the information to criminally investigate or prosecute any alcohol or drug abuse patient.[facility] HospitalIn the event this information is protected by the Federal Confidentiality of Alcohol and Drug Abuse Patient Records regulations: The Federal rules restrict any use of the information to criminally investigate or prosecute any alcohol or drug abuse patient.[facility] HospitalIn the event this information is protected by the Federal Confidentiality of Alcohol and Drug Abuse Patient Records regulations: The Federal rules restrict any use of the information to criminally investigate or prosecute any alcohol or drug abuse patient.[facility] HospitalIn the event this information is protected by the Federal Confidentiality of Alcohol and Drug Abuse Patient Records regulations: The Federal rules restrict any use of the information to criminally investigate or prosecute any alcohol or drug abuse patient.[facility] HospitalIn the event this information is protected by the Federal Confidentiality of Alcohol and Drug Abuse Patient Records regulations: The Federal rules restrict any use of the information to criminally investigate or prosecute any alcohol or drug abuse patient.[facility] HospitalIn the event this information is protected by the Federal Confidentiality of Alcohol and Drug Abuse Patient Records regulations: The Federal rules restrict any use of the information to criminally investigate or prosecute any alcohol or drug abuse patient.[facility] HospitalIn the event this information is protected by the Federal Confidentiality of Alcohol and Drug Abuse Patient Records regulations: The Federal rules restrict any use of the information to criminally investigate or prosecute any alcohol or drug abuse patient.[facility] HospitalIn the event this information is protected by the Federal Confidentiality of Alcohol and Drug Abuse Patient Records regulations: The Federal rules restrict any use of the information to criminally investigate or prosecute any alcohol or drug abuse patient.[facility] HospitalIn the event this information is protected by the Federal Confidentiality of Alcohol and Drug Abuse Patient Records regulations: The Federal rules restrict any use of the information to criminally investigate or prosecute any alcohol or drug abuse patient.[facility] HospitalIn the event this information is protected by the Federal Confidentiality of Alcohol and Drug Abuse Patient Records regulations: The Federal rules restrict any use of the information to criminally investigate or prosecute any alcohol or drug abuse patient.[facility] HospitalIn the event this information is protected by the Federal Confidentiality of Alcohol and Drug Abuse Patient Records regulations: The Federal rules restrict any use of the information to criminally investigate or prosecute any alcohol or drug abuse patient.[facility] HospitalIn the event this information is protected by the Federal Confidentiality of Alcohol and Drug Abuse Patient Records regulations: The Federal rules restrict any use of the information to criminally investigate or prosecute any alcohol or drug abuse patient.[facility] HospitalIn the event this information is protected by the Federal Confidentiality of Alcohol and Drug Abuse Patient Records regulations: The Federal rules restrict any use of the information to criminally investigate or prosecute any alcohol or drug abuse patient.[facility] HospitalIn the event this information is protected by the Federal Confidentiality of Alcohol and Drug Abuse Patient Records regulations: The Federal rules restrict any use of the information to criminally investigate or prosecute any alcohol or drug abuse patient.[facility] HospitalIn the event this information is protected by the Federal Confidentiality of Alcohol and Drug Abuse Patient Records regulations: The Federal rules restrict any use of the information to criminally investigate or prosecute any alcohol or drug abuse patient.[facility] HospitalIn the event this information is protected by the Federal Confidentiality of Alcohol and Drug Abuse Patient Records regulations: The Federal rules restrict any use of the information to criminally investigate or prosecute any alcohol or drug abuse patient.[facility] HospitalIn the event this information is protected by the Federal Confidentiality of Alcohol and Drug Abuse Patient Records regulations: The Federal rules restrict any use of the information to criminally investigate or prosecute any alcohol or drug abuse patient.[facility] HospitalIn the event this information is protected by the Federal Confidentiality of Alcohol and Drug Abuse Patient Records regulations: The Federal rules restrict any use of the information to criminally investigate or prosecute any alcohol or drug abuse patient.[facility] HospitalIn the event this information is protected by the Federal Confidentiality of Alcohol and Drug Abuse Patient Records regulations: The Federal rules restrict any use of the information to criminally investigate or prosecute any alcohol or drug abuse patient.[facility] HospitalIn the event this information is protected by the Federal Confidentiality of Alcohol and Drug Abuse Patient Records regulations: The Federal rules restrict any use of the information to criminally investigate or prosecute any alcohol or drug abuse patient.[facility] HospitalIn the event this information is protected by the Federal Confidentiality of Alcohol and Drug Abuse Patient Records regulations: The Federal rules restrict any use of the information to criminally investigate or prosecute any alcohol or drug abuse patient.[facility] HospitalIn the event this information is protected by the Federal Confidentiality of Alcohol and Drug Abuse Patient Records regulations: The Federal rules restrict any use of the information to criminally investigate or prosecute any alcohol or drug abuse patient.[facility] HospitalIn the event this information is protected by the Federal Confidentiality of Alcohol and Drug Abuse Patient Records regulations: The Federal rules restrict any use of the information to criminally investigate or prosecute any alcohol or drug abuse patient.[facility] HospitalIn the event this information is protected by the Federal Confidentiality of Alcohol and Drug Abuse Patient Records regulations: The Federal rules restrict any use of the information to criminally investigate or prosecute any alcohol or drug abuse patient.[facility] HospitalIn the event this information is protected by the Federal Confidentiality of Alcohol and Drug Abuse Patient Records regulations: The Federal rules restrict any use of the information to criminally investigate or prosecute any alcohol or drug abuse patient.[facility] HospitalIn the event this information is protected by the Federal Confidentiality of Alcohol and Drug Abuse Patient Records regulations: The Federal rules restrict any use of the information to criminally investigate or prosecute any alcohol or drug abuse patient.[facility] HospitalIn the event this information is protected by the Federal Confidentiality of Alcohol and Drug Abuse Patient Records regulations: The Federal rules restrict any use of the information to criminally investigate or prosecute any alcohol or drug abuse patient.[facility] HospitalIn the event this information is protected by the Federal Confidentiality of Alcohol and Drug Abuse Patient Records regulations: The Federal rules restrict any use of the information to criminally investigate or prosecute any alcohol or drug abuse patient.[facility] HospitalIn the event this information is protected by the Federal Confidentiality of Alcohol and Drug Abuse Patient Records regulations: The Federal rules restrict any use of the information to criminally investigate or prosecute any alcohol or drug abuse patient.[facility] HospitalIn the event this information is protected by the Federal Confidentiality of Alcohol and Drug Abuse Patient Records regulations: The Federal rules restrict any use of the information to criminally investigate or prosecute any alcohol or drug abuse patient.[facility] HospitalIn the event this information is protected by the Federal Confidentiality of Alcohol and Drug Abuse Patient Records regulations: The Federal rules restrict any use of the information to criminally investigate or prosecute any alcohol or drug abuse patient.[facility] HospitalIn the event this information is protected by the Federal Confidentiality of Alcohol and Drug Abuse Patient Records regulations: The Federal rules restrict any use of the information to criminally investigate or prosecute any alcohol or drug abuse patient.[facility] HospitalIn the event this information is protected by the Federal Confidentiality of Alcohol and Drug Abuse Patient Records regulations: The Federal rules restrict any use of the information to criminally investigate or prosecute any alcohol or drug abuse patient.[facility] HospitalIn the event this information is protected by the Federal Confidentiality of Alcohol and Drug Abuse Patient Records regulations: The Federal rules restrict any use of the information to criminally investigate or prosecute any alcohol or drug abuse patient.[facility] HospitalIn the event this information is protected by the Federal Confidentiality of Alcohol and Drug Abuse Patient Records regulations: The Federal rules restrict any use of the information to criminally investigate or prosecute any alcohol or drug abuse patient.[facility] HospitalIn the event this information is protected by the Federal Confidentiality of Alcohol and Drug Abuse Patient Records regulations: The Federal rules restrict any use of the information to criminally investigate or prosecute any alcohol or drug abuse patient.[facility] HospitalIn the event this information is protected by the Federal Confidentiality of Alcohol and Drug Abuse Patient Records regulations: The Federal rules restrict any use of the information to criminally investigate or prosecute any alcohol or drug abuse patient.[facility] HospitalIn the event this information is protected by the Federal Confidentiality of Alcohol and Drug Abuse Patient Records regulations: The Federal rules restrict any use of the information to criminally investigate or prosecute any alcohol or drug abuse patient.[facility] HospitalIn the event this information is protected by the Federal Confidentiality of Alcohol and Drug Abuse Patient Records regulations: The Federal rules restrict any use of the information to criminally investigate or prosecute any alcohol or drug abuse patient.[facility] HospitalIn the event this information is protected by the Federal Confidentiality of Alcohol and Drug Abuse Patient Records regulations: The Federal rules restrict any use of the information to criminally investigate or prosecute any alcohol or drug abuse patient.[facility] HospitalIn the event this information is protected by the Federal Confidentiality of Alcohol and Drug Abuse Patient Records regulations: The Federal rules restrict any use of the information to criminally investigate or prosecute any alcohol or drug abuse patient.[facility] HospitalIn the event this information is protected by the Federal Confidentiality of Alcohol and Drug Abuse Patient Records regulations: The Federal rules restrict any use of the information to criminally investigate or prosecute any alcohol or drug abuse patient.[facility] HospitalIn the event this information is protected by the Federal Confidentiality of Alcohol and Drug Abuse Patient Records regulations: The Federal rules restrict any use of the information to criminally investigate or prosecute any alcohol or drug abuse patient.[facility] the event this information is protected by the Federal Confidentiality of Alcohol and Drug Abuse Patient Records regulations: The Federal rules restrict any use of the information to criminally investigate or prosecute any alcohol or drug abuse patient.[facility] HospitalIn the event this information is protected by the Federal Confidentiality of Alcohol and Drug Abuse Patient Records regulations: The Federal rules restrict any use of the information to criminally investigate or prosecute any alcohol or drug abuse patient.[facility] HospitalIn the event this information is protected by the Federal Confidentiality of Alcohol and Drug Abuse Patient Records regulations: The Federal rules restrict any use of the information to criminally investigate or prosecute any alcohol or drug abuse patient.[facility]In the event this information is protected by the Federal Confidentiality of Alcohol and Drug Abuse Patient Records regulations: The Federal rules restrict any use of the information to criminally investigate or prosecute any alcohol or drug abuse patient.[facility] HospitalIn the event this information is protected by the Federal Confidentiality of Alcohol and Drug Abuse Patient Records regulations: The Federal rules restrict any use of the information to criminally investigate or prosecute any alcohol or drug abuse patient.[facility] HospitalIn the event this information is protected by the Federal Confidentiality of Alcohol and Drug Abuse Patient Records regulations: The Federal rules restrict any use of the information to criminally investigate or prosecute any alcohol or drug abuse patient.[facility] HospitalIn the event this information is protected by the Federal Confidentiality of Alcohol and Drug Abuse Patient Records regulations: The Federal rules restrict any use of the information to criminally investigate or prosecute any alcohol or drug abuse patient.[facility] HospitalIn the event this information is protected by the Federal Confidentiality of Alcohol and Drug Abuse Patient Records regulations: The Federal rules restrict any use of the information to criminally investigate or prosecute any alcohol or drug abuse patient.[facility] HospitalIn the event this information is protected by the Federal Confidentiality of Alcohol and Drug Abuse Patient Records regulations: The Federal rules restrict any use of the information to criminally investigate or prosecute any alcohol or drug abuse patient.[facility] HospitalIn the event this information is protected by the Federal Confidentiality of Alcohol and Drug Abuse Patient Records regulations: The Federal rules restrict any use of the information to criminally investigate or prosecute any alcohol or drug abuse patient.[facility] HospitalIn the event this information is protected by the Federal Confidentiality of Alcohol and Drug Abuse Patient Records regulations: The Federal rules restrict any use of the information to criminally investigate or prosecute any alcohol or drug abuse patient.[facility] HospitalIn the event this information is protected by the Federal Confidentiality of Alcohol and Drug Abuse Patient Records regulations: The Federal rules restrict any use of the information to criminally investigate or prosecute any alcohol or drug abuse patient.[facility] the event this information is protected by the Federal Confidentiality of Alcohol and Drug Abuse Patient Records regulations: The Federal rules restrict any use of the information to criminally investigate or prosecute any alcohol or drug abuse patient.[facility] HospitalIn the event this information is protected by the Federal Confidentiality of Alcohol and Drug Abuse Patient Records regulations: The Federal rules restrict any use of the information to criminally investigate or prosecute any alcohol or drug abuse patient.[facility] HospitalIn the event this information is protected by the Federal Confidentiality of Alcohol and Drug Abuse Patient Records regulations: The Federal rules restrict any use of the information to criminally investigate or prosecute any alcohol or drug abuse patient.[facility] HospitalIn the event this information is protected by the Federal Confidentiality of Alcohol and Drug Abuse Patient Records regulations: The Federal rules restrict any use of the information to criminally investigate or prosecute any alcohol or drug abuse patient.[facility] HospitalIn the event this information is protected by the Federal Confidentiality of Alcohol and Drug Abuse Patient Records regulations: The Federal rules restrict any use of the information to criminally investigate or prosecute any alcohol or drug abuse patient.[facility] HospitalIn the event this information is protected by the Federal Confidentiality of Alcohol and Drug Abuse Patient Records regulations: The Federal rules restrict any use of the information to criminally investigate or prosecute any alcohol or drug abuse patient.[facility] HospitalIn the event this information is protected by the Federal Confidentiality of Alcohol and Drug Abuse Patient Records regulations: The Federal rules restrict any use of the information to criminally investigate or prosecute any alcohol or drug abuse patient.[facility] HospitalIn the event this information is protected by the Federal Confidentiality of Alcohol and Drug Abuse Patient Records regulations: The Federal rules restrict any use of the information to criminally investigate or prosecute any alcohol or drug abuse patient.[facility] HospitalIn the event this information is protected by the Federal Confidentiality of Alcohol and Drug Abuse Patient Records regulations: The Federal rules restrict any use of the information to criminally investigate or prosecute any alcohol or drug abuse patient.[facility] HospitalIn the event this information is protected by the Federal Confidentiality of Alcohol and Drug Abuse Patient Records regulations: The Federal rules restrict any use of the information to criminally investigate or prosecute any alcohol or drug abuse patient.[facility] HospitalIn the event this information is protected by the Federal Confidentiality of Alcohol and Drug Abuse Patient Records regulations: The Federal rules restrict any use of the information to criminally investigate or prosecute any alcohol or drug abuse patient.[facility] HospitalIn the event this information is protected by the Federal Confidentiality of Alcohol and Drug Abuse Patient Records regulations: The Federal rules restrict any use of the information to criminally investigate or prosecute any alcohol or drug abuse patient.[facility] Reason for Visit (unrecogniz ed section and content) Reason Comments Rash left knee, itching a nd painful x 2 weeks Reason Comments Rash x2 wks, reported irr itation Follow Up (LT) lower lip corne r Reason Comments Ear Pain right, sore throat x 1 day Reason Comments Ear Pain rated 6, jaw area, s ore throat pain rated 7 x 1wk, currently taking ATB Reason Comments Ear Pain L ear pain x2 weeks, L side of throat swollen Reason Comments Appointment Provider wants patie nt to have Annual Exam first. Appointment was changed to Annual. Called patient to inform her the appointment was changed. No answer or voicemail. Reason Comments Well Woman Reason Comments Results Reason Comments Refill Request Reason Comments nexplanon removal Specialty Diagnoses / Procedures Referred By Katy t Referred To Contact [facility] Diagnoses Nexplanon removal Procedures NEXPLANON REMOVAL REMOVAL NON-BIODEGRADABLE DRUG DELIVERY IMPLANT Berta Eldridge APRN.NOE [address] [place] [address] [facility] [address] [place] [address] Referral ID Status Reason Start Date Expiration Date Visits Requested Visits Authorized [id number] Authorized Auto-Generat ed Referral 08/14/2022 09/10/2022 2 2 Reason Comments Edema Bilateral hands x 4 days, worsening the last 2 and painful Reason Comments Follow Up urgent care- hands b ilateral swollen Reason Comments Vaginal Problem Reason Comments Yearly Exam Reason Onset Date Comments Care 11/17/2023 Reason Comments Medication Problem Reason Onset Date Comments Care 11/26/2023 Reason Comments BV + Pelvic Pain Reason Comments Medication Question Reason Comments Patient Update Reason Comments OB Vaginal Infection Reason Comments Appointment Reason Comments US Specialty Diagnoses / Procedures Referred By Contac t Referred To Contact [facility] Diagnoses 12 weeks gestation of Encounter for supervision of normal first in first trimester Procedures OBSTETRIC ULTRASOUND WHI US PREG UTERUS AFTER 1ST TRIMEST GESTATION Urban Burnett MD [address] [place] [address] [facility] [address] [place] [address] Referral ID Status Reason Start Date Expiration Date V isits Requested Visits Authorized [id number] Closed Auto-Generate d Referral 11/17/2023 11/16/2024 1 1 Reason Onset Date Comments Care 01/05/2024 Reason Onset Date Comments Care 02/02/2024 Reason Comments Manager Paper - Other PRAF Reason Onset Date Comments Care 02/17/2024 Reason Comments Letter Reason Onset Date Comments Refill Request 03/01/2024 Reason Onset Date Comments Care 03/16/2024 Reason Onset Date Comments Care 03/31/2024 Specialty Diagnoses / Procedures [facility] Diagnoses Supervision of high risk in third trimester 31 weeks gestation of Procedures OBSTETRIC ULTRASOUND WHI US PREG UTERUS AFTER 1ST TRIMEST GESTATION Berta Eldridge APRN.[facility] [address] [place] [address] [facility] [address] [place] [address] Referral ID Status Reason Start Date Expiration Date V isits Requested Visits Authorized [id number] Closed Auto-Generate d Referral 03/31/2024 03/31/2025 5 1 Reason Comments Results Follow Up Reason Comments Care Reason Comments Question (OB Question) Reason Onset Date Comments Care 04/12/2024 Reason Onset Date Comments Care 04/19/2024 Reason Onset Date Comments Care 04/29/2024 Reason Comments Ear Pain bilateal, right wors e, ears popping and swollen lymph nodes x 1 week-36 weeks Reason Onset Date Comments Care 05/06/2024 Reason Comments Ob Delivery Note Reason Comments Early Reason Comments Elevated BP Reason Comments UTI Reason Comments Patient Question Reason Comments HSV Reason Onset Date Comments Refill Request 10/07/2024 Reason Comments Results Reason Comments Ear Pain Left ear pain, x 1 d ay feverTested Covid + on Thursday Reason Comments Diarrhea X last night, sympto ms now cleared Reason Comments Thyroid Problem Labs 10/25/24,10/31/24 Specialty Diagnoses / Procedures Referred By Contac t Referred To Contact Endocrinology Diagnoses Elevated TSH Procedures CONSULT TO ENDOCRINOLOGY OFFICE/OUTPATIENT [facility] [place] 60 MINUTES Reagan Campos APRN.UNDERGROUND UTILITY LOCATOR [address] [place] [address] Phone: tel: fax:[phone] Outpatient Referral [address] [address] Referral ID Status Reason Start Date Expiration Date V isits Requested Visits Authorized [id number] Closed PCP Requested Referral 11/11/2024 10/11/2025 1 1 Reason Comments Cough MILAD ear pain, stuffy nose x 2 daysPossible yeast infection, odor, itching, discharge x 3 weeks Reason Comments Problem Visit Reason Comments Orders Reason Comments Thyroid Problem Reason Comments Nexplanon removal Specialty Diagnoses / Procedures [facility] To Contact [facility] Diagnoses Nexplanon removal Procedures NEXPLANON REMOVAL REMOVAL NON-BIODEGRADABLE DRUG DELIVERY IMPLANT Binta Carcamo APRN.CNM [address] [place] [address] Phone: tel: fax:[phone] [facility] [address] [place] [id number] Referral ID Status Reason Start Date Expiration Date V isits Requested Visits Authorized [id number] Closed Auto-Generate d Referral 03/10/2025 03/10/2026 1 1 Reason Comments Vomiting Vomiting x 1 day Reason Comments Physical Annual Physical Reason Onset Date Comments Refill Request 05/29/2025 Care Teams (unrecognized sec tion and content) Airline Ticket Agent Relationship Specialty Start Date End Date Elsa Bro MD [address] [place] [address] PCP - General Internal Medicine 03/01/21 Airline Ticket Agent Relationship Specialty Start Date End Date Elsa Bro MD [address] [place] [address] PCP - General Internal Medicine 03/01/21 Airline Ticket Agent Relationship Specialty Start Date End Date Elsa Bro MD [address] [place] [address] PCP - General Internal Medicine 03/01/21 Airline Ticket Agent Relationship Specialty Start Date End Date Elsa Bro MD [address] [place] [address] PCP - General Internal Medicine 03/01/21 Airline Ticket Agent Relationship Specialty Start Date End Date Elsa Bro MD [address] [place] [address] PCP - General Internal Medicine 03/01/21 Airline Ticket Agent Relationship Specialty Start Date End Date Elsa Bro MD [address] [place] [address] PCP - General Internal Medicine 03/01/21 Airline Ticket Agent Relationship Specialty Start Date End Date Elsa Bro MD [address] [place] [address] PCP - General Internal Medicine 03/01/21 Airline Ticket Agent Relationship Specialty Start Date End Date Elsa Bro MD [address] [place] [address] PCP - General Internal Medicine 03/01/21 Airline Ticket Agent Relationship Specialty Start Date End Date Elsa Bro MD [address] [place] [address] PCP - General Internal Medicine 03/01/21 Airline Ticket Agent Relationship Specialty Start Date End Date Elsa Bro MD [address] [place] [address] PCP - General Internal Medicine 03/01/21 Airline Ticket Agent Relationship Specialty Start Date End Date Elsa Bro MD [address] [place] [address] PCP - General Internal Medicine 03/01/21 Team Status: Active Member Role Status Dates Amarilis Berry GALLERY OR MUSEUM CURATOR, GALLERY OR MUSEUM CURATOR-C Family Provider Active Elsa CASTELLANOS MD Primary Care Provider Active Team Status: Inactive Member Role Status Dates Dr. Tremayne Quiñonez MD Attending Provider, Emergency Pro vider Active Elsa CASTELLANOS MD Primary Care Provider Active Team Status: Inactive Member Role Status Dates Elsa CASTELLANOS MD Primary Care Provider Active Dr. Luis Enrique Bautista DO Emergency Provider Active Team Status: Active Member Role Status Dates Amarilis Berry GALLERY OR MUSEUM CURATOR, GALLERY OR MUSEUM CURATOR-C Family Provider Active Dr. Elsa Bro MD Primary Care Provider Active Team Status: Inactive Member Role Status Dates Elsa CASTELLANOS MD Primary Care Provider Active Dr. Luis Enrique Bautista DO Attending Provider, Emergency Pr ovider Active Team Status: Inactive Member Role Status Dates Dr. Robert Draper DO Emergency Provider Active Dr. Elsa Bro MD Primary Care Provider Active Airline Ticket Agent Relationship Specialty Start Date End Date Elsa Bro MD [address] [place] [address] PCP - General Internal Medicine 03/01/21 Airline Ticket Agent Relationship Specialty Start Date End Date Elsa Bro MD [address] [place], [place] [address] PCP - General Internal Medicine 03/01/21 Airline Ticket Agent Relationship Specialty Start Date End Date Elsa Bro MD [address] [place] [address] PCP - General Internal Medicine 03/01/21 Airline Ticket Agent Relationship Specialty Start Date End Date Elsa Bro MD [address] [place] [address] PCP - General Internal Medicine 03/01/21 Airline Ticket Agent Relationship Specialty Start Date End Date Elsa Bro MD [address] [place] [address] PCP - General Internal Medicine 03/01/21 Airline Ticket Agent Relationship Specialty Start Date End Date Elsa Bro MD [address] [place] [address] PCP - General Internal Medicine 03/01/21 Airline Ticket Agent Relationship Specialty Start Date End Date Elsa Bro MD [address] [place] [address] PCP - General Internal Medicine 03/01/21 Airline Ticket Agent Relationship Specialty Start Date End Date Elsa Bro MD [address] [place] [address] PCP - General Internal Medicine 03/01/21 Airline Ticket Agent Relationship Specialty Start Date End Date Elsa Bro MD [address] [place] [address] PCP - General Internal Medicine 03/01/21 Airline Ticket Agent Relationship Specialty Start Date End Date Elsa Bro MD [address] [place] [address] PCP - General Internal Medicine 03/01/21 Airline Ticket Agent Relationship Specialty Start Date End Date Elsa Bro MD [address] [place] [address] PCP - General Internal Medicine 03/01/21 Airline Ticket Agent Relationship Specialty Start Date End Date Elsa Bro MD [address] [place] [address] PCP - General Internal Medicine 03/01/21 Airline Ticket Agent Relationship Specialty Start Date End Date Elsa Bro MD [address] [place] [address] PCP - General Internal Medicine 03/01/21 Airline Ticket Agent Relationship Specialty Start Date End Date Elsa Bro MD [address] [place] [address] PCP - General Internal Medicine 03/01/21 Airline Ticket Agent Relationship Specialty Start Date End Date Elsa Bro MD [address] [place] [address] PCP - General Internal Medicine 03/01/21 Airline Ticket Agent Relationship Specialty Start Date End Date Elsa Bro MD [address] [place] [address] PCP - General Internal Medicine 03/01/21 Airline Ticket Agent Relationship Specialty Start Date End Date Elsa Bro MD [address] [place] [address] PCP - General Internal Medicine 03/01/21 Airline Ticket Agent Relationship Specialty Start Date End Date Elsa Bro MD [address] [place] [address] PCP - General Internal Medicine 03/01/21 Airline Ticket Agent Relationship Specialty Start Date End Date Elsa Bro MD [address] [place] [address] PCP - General Internal Medicine 03/01/21 Airline Ticket Agent Relationship Specialty Start Date End Date Elsa Bro MD [address] [place] [address] PCP - General Internal Medicine 03/01/21 Airline Ticket Agent Relationship Specialty Start Date End Date Elsa Bro MD [address] [place] [address] PCP - General Internal Medicine 03/01/21 Airline Ticket Agent Relationship Specialty Start Date End Date Elsa Bro MD [address] [place] [address] PCP - General Internal Medicine 03/01/21 Airline Ticket Agent Relationship Specialty Start Date End Date Elsa Bro MD [address] [place] [address] PCP - General Internal Medicine 03/01/21 Airline Ticket Agent Relationship Specialty Start Date End Date Elsa Bro MD [address] [place] [address] PCP - General Internal Medicine 03/01/21 Airline Ticket Agent Relationship Specialty Start Date End Date Elsa Bro MD [address] [place] [address] PCP - General Internal Medicine 03/01/21 Airline Ticket Agent Relationship Specialty Start Date End Date Elsa Bro MD [address] [place] [address] PCP - General Internal Medicine 03/01/21 Airline Ticket Agent Relationship Specialty Start Date End Date Elsa Bro MD [address] [place] [address] PCP - General Internal Medicine 03/01/21 aMylin Mcfarlane PA-C [address] [place] [address] [facility] 09/18/24 Kelli Boyle APRN.UNDERGROUND UTILITY LOCATOR [address] [place] [address] [facility] 09/18/24 Ibis Dunne PA-C [address] [place] [address] [facility] 09/18/24 Airline Ticket Agent Relationship Specialty Start Date End Date Elsa Bro MD [address] [place] [address] PCP - General Internal Medicine 03/01/21 Maylin Mcfarlane PA-C [address] [place] [address] [facility] 09/18/24 Kelli Boyle APRN.UNDERGROUND UTILITY LOCATOR [address] [place] [address] [facility] 09/18/24 Ibis Dunne PA-C [address] [place] [address] [facility] 09/18/24 Airline Ticket Agent Relationship Specialty Start Date End Date Elsa Bro MD [address] [place] [address] PCP - General Internal Medicine 03/01/21 Maylin Mcfarlane PA-C [address] [place] [address] [facility] 09/18/24 Kelli Boyle APRN.UNDERGROUND UTILITY LOCATOR [address] [place] [address] [facility] 09/18/24 Ibis Dunne PA-C [address] [place] [address] [facility] Airline Ticket Agent Relationship Specialty Start Date End Date Elsa Bro MD [address] [place] [address] PCP - General Internal Medicine 03/01/21 Maylin Mcfarlane PA-C [address] [place] [address] [facility] 09/18/24 Kelli Boyle APRN.UNDERGROUND UTILITY LOCATOR [address] [place] [address] [facility] 09/18/24 Ibis Dunne PA-C [address] [place] [address] [facility] Family Medicine 09/18/24 Airline Ticket Agent Relationship Specialty Start Date End Date Elsa Bro MD [address] [place] [address] PCP - General Internal Medicine 03/01/21 Maylin Mcfarlane PA-C [address] [place], [place] [phone] [facility] 09/18/24 Kelli Boyle APRN.UNDERGROUND UTILITY LOCATOR [address] [place] [address] [facility] 09/18/24 Ibis Dunne PA-C [address] [place] [address] [facility] 09/18/24 Airline Ticket Agent Relationship Specialty Start Date End Date Elsa Bro MD [address] [place] [address] PCP - General Internal Medicine 03/01/21 Maylin Mcfarlane PA-C [address] [place] [address] [facility] 09/18/24 Kelli Boyle APRN.UNDERGROUND UTILITY LOCATOR [address] [place] [address] [facility] 09/18/24 Ibis Dunne PA-C [address] [place] [address] [facility] Family [facility] 09/18/24 Airline Ticket Agent Relationship Specialty Start Date End Date Elsa Bro MD [address] [place] [address] PCP - General Internal Medicine 03/01/21 Maylin Mcfarlane PA-C [address] [place], [place] [id number] [facility] 09/18/24 Kelli Boyle APRN.UNDERGROUND UTILITY LOCATOR [address] [place] [address] [facility] 09/18/24 Ibis Dunne PA-C [address] [place] [address] [facility] Family [facility] 09/18/24 Airline Ticket Agent Relationship Specialty Start Date End Date Elsa Bro MD [address] [place] [address] PCP - General Internal Medicine 03/01/21 Kelli Boyle APRN.UNDERGROUND UTILITY LOCATOR [address] [place] [address] [facility] Internal Medicine 09/18/24 Airline Ticket Agent Relationship Specialty Start Date End Date Elsa Bro MD [address] [place] [address] PCP - General Internal Medicine 03/01/21 Kelli Boyle APRN.UNDERGROUND UTILITY LOCATOR [address] [place] [address] [facility] Internal Medicine 09/18/24 Airline Ticket Agent Relationship Specialty Start Date End Date Elsa Bro MD [address] [place] [address] PCP - General Internal Medicine 03/01/21 Kelli Boyle APRN.UNDERGROUND UTILITY LOCATOR [address] [place] [address] [facility] 09/18/24 Airline Ticket Agent Relationship Specialty Start Date End Date Elsa Bro MD [address] [place] [address] PCP - General Internal Medicine 03/01/21 Kelli Boyle APRN.UNDERGROUND UTILITY LOCATOR [address] [facility] [place] [address] [facility] 09/18/24 Airline Ticket Agent Relationship Specialty Start Date End Date Elsa Bro MD [address] [facility] [place] [place] [address] PCP - General Internal Medicine 03/01/21 Kelli Boyle APRN.UNDERGROUND UTILITY LOCATOR [address] [facility] [place] [address] [facility] 09/18/24 Airline Ticket Agent Relationship Specialty Start Date End Date Elsa Bro MD [address] [facility] [place] [place] [address] PCP - General Internal Medicine 03/01/21 Kelli Boyle APRN.UNDERGROUND UTILITY LOCATOR [address] [facility] [place] [address] [facility] 09/18/24 Airline Ticket Agent Relationship Specialty Start Date End Date Elsa Bro MD [address] [place] [address] PCP - General Internal Medicine 03/01/21 Kelli Boyle APRN.UNDERGROUND UTILITY LOCATOR [address] [facility] [place] [address] [facility] 09/18/24 Airline Ticket Agent Relationship Specialty Start Date End Date Elsa Bro MD [address] [place] [address] PCP - General Internal Medicine 03/01/21 Kelli Boyle APRN.UNDERGROUND UTILITY LOCATOR [address] [place] [address] [facility] 09/18/24 Team Status: Active Member Role/Relationship Status Dates No Primary Care Physician Primary Care Provider Active Team Status: Inactive Member Role/Relationship Status Dates Dr. Tremayne Quiñonez MD Emergency Provider Active S tart: April 15, 2025 End: April 15, 2025 No Primary Care Physician Primary Care Provider Active Start: April 15, 2025 End: April 15, 2025 Airline Ticket Agent Relationship Specialty Start Date End Date Elsa Bro MD [address] [place], [place] [address] PCP - General Internal Medicine 03/01/21 Kelli Boyle APRN.UNDERGROUND UTILITY LOCATOR [address] [place], [place] [address] [facility] Internal Medicine 09/18/24 Goals (unrecognized section and content) Goals may be documented in a n alternate sectionGoals may be documented in an alternate section No data available for this sectionGoals may be documented in an alternate sectionGoals may be documented in an alternate sectionGoals may be documented in an alternate section Care Team (unrecognized sect ion and content) Care Team Personnel Name: PHYSICIAN, NONE Position: Physician Member Role: Primary Care Physician Name: AUDRA Seymour Position: ED RN Member Role: ED RN Name: LEILA TOMLINSON MD Position: ED Physician Member Role: Attending Physician Address: Address: [facility] [address] [place] [address]- Care Team Related Persons Name: ESPERANZA RUCKER Name: FE CAGE FOR RECORDS PERTAINING TO PATIENTS WHO ARE OR HAVE BEEN ENROLLED IN A CHEMICAL DEPENDENCY/SUBSTANCEABUSE PROGRAM, SOME INFORMATION MAY BE OMITTED. This clinical summary was aggregated from multiple sources. Caution should be exercised in using it in the provision of clinical care. This summary normalizes information from multiple sources, and as a consequence, information in this document may materially change the coding, format and clinical context of patient data. In addition, data may be omitted in some cases. CLINICAL DECISIONS SHOULD BE BASED ON THE PRIMARY CLINICAL RECORDS. [facility] [employer] [facility]. provides no warranty or guarantee of the accuracy or completeness of information in this document.
[2025-08-24 19:35] VITALS: BP 147/92; PULSE 73; RESP 16; TEMP 36.3; O2SAT 98
== END 2025-08-24 19:36 | disposition home or self-care (01) ==
PROVIDERS: Emergency Provider Student in an Organized Health Care Education/Training Program; PCP Internal Medicine; Visit Provider Student in an Organized Health Care Education/Training Program
DX: G24.02 Drug induced acute dystonia (principal); F17.290 Nicotine dependence, other tobacco product, uncomplicated; T45.0X5A Adverse effect of antiallergic and antiemetic drugs, initial encounter
CPT/HCPCS: 96374; 99283; A4216

== ENCOUNTER 2025-09-09 13:41 | Emergency (ER) | payer MEDICAID, SELFPAY ==
[2025-09-09 13:42] VITALS: BP 159/99; PULSE 111; RESP 16; TEMP 36.8; O2SAT 97; BMI 26.9
--- OUTSIDE RECORDS SUMMARY | 2025-09-09 14:03 | XMS RPT_ITS | CCD ---
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 Name Role Phone FANNY NIOCLE MD Admitting Unavailable FANNY NICOLE MD Attending Unavailable FANNY NICOLE MD Primary Care Unavailable NO, DOCTOR ON Consulting Unavailable NO, DOCTOR ON Referring Unavailable Dieudonne ISRAEL, Elsa Primary Care Provider [phone] Elsa Bro MD Primary Care Provider PHYSICIAN, NONE Primary Care Physician Unavailab Elsa Hall MD Primary Care Provider LEILA TOMLINSON MD Attending Unavail able PHYSICIAN, NONE Primary Care Unavailable Elsa Bro MD Primary Care Provider Maylin Mcfarlane PA-C Unavailable [phone] 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 Tremayne Quiñonez MD Emergency Provider Care Physician, No Primary Primary Care Provider [...] Care Unavailable GANTA, ELSA Primary Care Unavailable CARLOS ALBERTO BINTA Referring Unavailable KARINA KWONG Attending Unavailable [...] Unavailable Ganta, Elsa Primary Care Unavailable Sudhir Marcus Attending Unavailable Ganta, Elsa Primary Care Unavailable Allergies Allergy Classification Reported Allergen(s) Allergy Type Date of Onset Reaction(s) Facility Penicillins (antibiotic) (2 sources) Amoxicillin Drug Allergy 11-24-2013 [facility] (2 sources) Amoxicillin; Translations: [AMOXICILLIN] Drug Allergy 11-24-[address] [facility] Repository (1 source) Penicillin Drug Allergy [facility] Repository (20 sources) Amoxicillin; Translations: [amoxicillin] Drug Allergy 11-24-2013 [facility] Work Phone: (16 sources) lavender (Lavandula angustifolia); Translations: [LAVENDER (LAVANDULA ANGUSTIFOLIA)] Allergy to substance 03-12-2023 [facility] (1 source) Amoxicillin Drug Allergy 08-22-2025 [facility] Repository (1 source) lavender (Lavandula angustifolia) Drug allergy (disorder) 08-22-2025 [facility] Repository Medications Current Medications Medication Drug Class(es) [...] on above: Take 2 tablets by mo [facility] one time only for 1 dose. cefdinir [...] Comment on above: Take 1 capsule by [facility] twice daily for 7 days. Ethinyl Estradiol [...] times a day. 02/09/2025 Active prazosin HCl (ND AZOSIN ORAL) Take 2 mg by mouth. [...] Comment on above: Take 1 capsule by [facility] three times daily as needed. labetalol hydrochloride [...] Comment on above: Take 1 capsule by [facility] once daily. TAKE ONE CAPSULE BY MOUTH [...] May 06, 2024 3:50pm polyethylene glycol 3350 41019 mg powder for oral solution (17 sources) [...] Absolute Lymph 1.36 X10 3/uL Normal 0.83-4.51 [facility] Comment on above: Performed By: #### L 100.0100, L501.94588, L501.2450, L506.0400, L501.9520, L500.4050 #### [facility] Laboratory [address] [place], [address] Absolute Neut 8.9 X10 3/uL High 2.0-7.7 [facility] Comment on above: Performed By: #### L 100.0100, L501.29220, L501.2450, L506.0400, L501.9520, L500.4050 #### [facility] Laboratory [address] [place], [address] Basophils/100 WBC (Bld) 0.3 % Normal 0-1 [facility] Comment on above: Performed By: #### L 100.0100, L501.42327, L501.2450, L506.0400, L501.9520, L500.4050 #### [facility] Laboratory [address] [place], [address] Eosinophils/100 WBC (Bld) 0.0 % Normal 0-5 [facility] Comment on above: Performed By: #### L 100.0100, L501.86696, L501.2450, L506.0400, L501.9520, L500.4050 #### [facility] Laboratory [address] [place], [address] Erythrocyte distribution width (RBC) [Ratio] 13.3 % Normal 11.6-14.6 [facility] Comment on above: Performed By: #### L 100.0100, L501.88769, L501.2450, L506.0400, L501.9520, L500.4050 #### [facility] Laboratory [address] [place], [address] Hematocrit (Bld) [Volume fraction] 40.2 % Normal 37-47 [facility] Comment on above: Performed By: #### L 100.0100, L501.07775, L501.2450, L506.0400, L501.9520, L500.4050 #### [facility] Laboratory [address] [place], [address] Hemoglobin (Bld) [Mass/Vol] 13.2 g/dL Normal 12.0-15.0 [facility] Comment on above: Performed By: #### L 100.0100, L501.97369, L501.2450, L506.0400, L501.9520, L500.4050 #### [facility] Laboratory [address] [place], [address] IG% 0.400 Normal 0.0-0.9 [facility] Comment on above: Result Comment: IG% - Immature Granulocytes (promyelocytes, myelocytes and metamyelocytes) > 1% indicates that a LEFT SHIFT is Present. Performed By: #### L 100.0100, L501.11730, L501.2450, L506.0400, L501.9520, L500.4050 #### [facility] Laboratory [address] [place], [address] Lymphocytes/100 WBC (Bld) 12.6 % Low 19-41 [facility] Comment on above: Performed By: #### L 100.0100, L501.26703, L501.2450, L506.0400, L501.9520, L500.4050 #### [facility] Laboratory [address] [place], [address] MCH (RBC) [Entitic mass] 29.6 pg Normal 27.0-32.0 [facility] Comment on above: Performed By: #### L 100.0100, L501.40382, L501.2450, L506.0400, L501.9520, L500.4050 #### [facility] [address] [place], [address] MCHC (RBC) [Mass/Vol] 32.8 g/dL Normal 32-36 [facility] Comment on above: Performed By: #### L 100.0100, L501.59591, L501.2450, L506.0400, L501.9520, L500.4050 #### [facility] [address] [place], [address] MCV (RBC) [Entitic vol] 90.1 fL Normal 81-99 [facility] Comment on above: Performed By: #### L 100.0100, L501.22217, L501.2450, L506.0400, L501.9520, L500.4050 #### [facility] [address] [place], [address] Monocytes/100 WBC (Bld) 4.5 % Normal 0-10 [facility] Comment on above: Performed By: #### L 100.0100, L501.68602, L501.2450, L506.0400, L501.9520, L500.4050 #### [facility] [address] [place], [address] Neutrophils/100 WBC (Bld) 82.2 % High 47-70 [facility] Comment on above: Performed By: #### L 100.0100, L501.96696, L501.2450, L506.0400, L501.9520, L500.4050 #### [facility] [address] [place], [address] Nucleated RBC (Bld) [#/Vol] 0 10*3/uL Normal 0-5 [facility] Comment on above: Performed By: #### L 100.0100, L501.47886, L501.2450, L506.0400, L501.9520, L500.4050 #### [facility] [address] [place], [address] Platelet mean volume (Bld) [Entitic vol] 10.9 fL Normal 6.2-12.0 [facility] Comment on above: Performed By: #### L 100.0100, L501.48877, L501.2450, L506.0400, L501.9520, L500.4050 #### [facility] [address] [place], [address] Platelets (Bld) [#/Vol] 277 10*3/uL Normal 150-450 [facility] Comment on above: Performed By: #### L 100.0100, L501.40418, L501.2450, L506.0400, L501.9520, L500.4050 #### [facility] [address] [place], [address] RBC (Bld) [#/Vol] 4.46 10*6/uL Normal 4.2-5.4 [facility] Comment on above: Performed By: #### L 100.0100, L501.37521, L501.2450, L506.0400, L501.9520, L500.4050 #### [facility] [address] [place], [address] RDW SD 43.9 fl Normal 35.1-43.9 [facility] Comment on above: Performed By: #### L 100.0100, L501.46879, L501.2450, L506.0400, L501.9520, L500.4050 #### [facility] [address] [place], [address] WBC (Bld) [#/Vol] 10.8 10*3/uL Normal 4.4-11.0 [facility] Comment on above: Performed By: #### L 100.0100, L501.26806, L501.2450, L506.0400, L501.9520, L500.4050 #### [facility] Laboratory [address] [place], [address] Chest PA and Lateralon 08-22 Chest PA and Lateral [facility] Imaging Services [address] [place] [address] Chest PA and Lateral MR#: [id number] Acct: [id number] Name: J[place]SON [place] Rep #: [id number] : 2000 F 24 From: Dagoberto hogue MD PCP: Dr. Elsa Bro MD Status: REG ER Study: Chest PA and Lateral Date of Exam: 08/22/25 Exam# [id number] Ordering Dr: Sudhir Marcus DO PROCEDURE: CHEST [...] and Lateral IMPRESSION: NEGATIVE CHEST Reading Location: [id number] CC: Dr. Elsa Bro MD; Dr. Sudhir Marcus DO Telephone Sales Agent: Signed Normal [facility] Comprehensive Metabolic Prof ilon 08-22-2025 Albumin [Mass/Vol] 4.6 g/dL Normal 3.5-5.0 [facility] Comment on above: Performed By: #### L 100.0100, L501.25779, L501.2450, L506.0400, L501.9520, L500.4050 #### [facility] Laboratory [address] [place], [address] Albumin/Globulin [Mass ratio] 1.7 {ratio} Normal 0.9-2.4 [facility] Comment on above: Performed By: #### L 100.0100, L501.41784, L501.2450, L506.0400, L501.9520, L500.4050 #### [facility] [address] [place], [address] ALK PHOS 73 U/L Normal 35-104 [facility] Comment on above: Performed By: #### L 100.0100, L501.17975, L501.2450, L506.0400, L501.9520, L500.4050 #### [facility] [address] [place], [address] ALT [Catalytic activity/Vol] 29 U/L Normal <=34 [facility] Comment on above: Performed By: #### L 100.0100, L501.90957, L501.2450, L506.0400, L501.9520, L500.4050 #### [facility] [address] [place], [address] AST [Catalytic activity/Vol] 24 U/L Normal <=31 [facility] Comment on above: Performed By: #### L 100.0100, L501.28715, L501.2450, L506.0400, L501.9520, L500.4050 #### [facility] [address] [place], [address] Bilirubin [Mass/Vol] 1.09 mg/dL Normal 0.00-1.30 [facility] Comment on above: Performed By: #### L 100.0100, L501.69670, L501.2450, L506.0400, L501.9520, L500.4050 #### [facility] [address] [place], [address] BUN/CRE 18.4 RATIO Normal 10-20 [facility] Comment on above: Performed By: #### L 100.0100, L501.59894, L501.2450, L506.0400, L501.9520, L500.4050 #### [facility] [address] [place], [address] Calcium [Mass/Vol] 9.4 mg/dL Normal 7.6-11.0 [facility] Comment on above: Performed By: #### L 100.0100, L501.92847, L501.2450, L506.0400, L501.9520, L500.4050 #### [facility] [address] [place], [address] Chloride [Moles/Vol] 96 mmol/L Low 98-108 [facility] Comment on above: Performed By: #### L 100.0100, L501.34804, L501.2450, L506.0400, L501.9520, L500.4050 #### [facility] [address] [place], [address] CO2 [Moles/Vol] 26.8 mmol/L Normal 21.0-32.0 [facility] Comment on above: Performed By: #### L 100.0100, L501.36011, L501.2450, L506.0400, L501.9520, L500.4050 #### [facility] [address] [place], [address] Creatinine [Mass/Vol] 0.66 mg/dL Low 0.70-1.20 [facility] Comment on above: Performed By: #### L 100.0100, L501.14514, L501.2450, L506.0400, L501.9520, L500.4050 #### [facility] [address] [place], [address] ECRCL 142.07 ml/min Normal 50-250 [facility] Comment on above: Performed By: #### L 100.0100, L501.22934, L501.2450, L506.0400, L501.9520, L500.4050 #### [facility] [address] [place], [address] GAP 13 Normal 5-15 [facility] Comment on above: Performed By: #### L 100.0100, L501.85343, L501.2450, L506.0400, L501.9520, L500.4050 #### [facility] [address] [place], [address] GFR/1.73 sq M.predicted among non-blacks MDRD (S/P/Bld) [Vol rate/Area] 124 mL/min/{1.73_m2} Normal >60 [facility] Comment on above: Result Comment: mL/m in/1.73m2 CKD-EPI Creatinine Equation (2020) Performed By: #### L 100.0100, L501.94158, L501.2450, L506.0400, L501.9520, L500.4050 #### [facility] [address] [place], [address] Globulin (S) [Mass/Vol] 2.8 g/dL Normal 2.2-4.2 [facility] Comment on above: Performed By: #### L 100.0100, L501.65962, L501.2450, L506.0400, L501.9520, L500.4050 #### [facility] Laboratory [address] [place], [address] Glucose [Mass/Vol] 111 mg/dL High 70-99 [facility] Comment on above: Performed By: #### L 100.0100, L501.00991, L501.2450, L506.0400, L501.9520, L500.4050 #### [facility] [address] [place], [address] Potassium [Moles/Vol] 3.1 mmol/L Low 3.3-5.1 [facility] Comment on above: Performed By: #### L 100.0100, L501.83321, L501.2450, L506.0400, L501.9520, L500.4050 #### [facility] [address] [place], [address] Sodium [Moles/Vol] 135 mmol/L Normal 133-145 [facility] Comment on above: Performed By: #### L 100.0100, L501.65204, L501.2450, L506.0400, L501.9520, L500.4050 #### [facility] [address] [place], [address] T PROT 7.3 g/dL Normal 5.9-8.4 [facility] Comment on above: Performed By: #### L 100.0100, L501.33076, L501.2450, L506.0400, L501.9520, L500.4050 #### [facility] [address] [place], [address] Urea nitrogen [Mass/Vol] 12 mg/dL Normal 4-19 [facility] Comment on above: Performed By: #### L 100.0100, L501.06998, L501.2450, L506.0400, L501.9520, L500.4050 #### [facility] [address] [place], [address] Emergency Department Summary on 08-22-2025 Emergency Department Summary [facility] Medical Records Department [address] [facility] [address] Emergency Department Summary 08/22/25 MR#: [id number] Acct: [id number] Name: [place] Rep #: [id number] : 2000 24 From: Sudhir Marcus DO [...] recently gave up smoking marijuana as well [facility] Medical History Nexplanon insertion Acute blood [...] Neurological: Pa (more content not included)... Normal [facility] Free T3on 08-22-2025 Free T3 [Mass/Vol] 2.1 pg/mL Low 2.18-3.98 [facility] Comment on above: Performed By: #### L 100.0100, L501.40685, L501.2450, L506.0400, L501.9520, L500.4050 ####[facility] [address] [place], [address] Lipaseon 08-22-2025 Lipase [Catalytic activity/Vol] 19 U/L Normal 13-75 [facility] Comment on above: Result Comment: Margareth sandoval note: LIPASE revised reference range effective 23. New Lipase methodology. Expected to produce lower values than the previous assay method. NEW Reference Range: 13 - 75 U/L Performed By: #### L 100.0100, L501.99087, L501.2450, L506.0400, L501.9520, L500.4050 #### [facility] Laboratory [address] [place], [address] T4 Free Directon 08-22-2025 T4 FREE DIRECT 1.00 ng/dL Normal 0.76-1.46 [facility] Comment on above: Performed By: #### L 100.0100, L501.39568, L501.2450, L506.0400, L501.9520, L500.4050 ####[facility] [address] [place], [address] Thyroid Stim Hormone (TSH)on 08-22-2025 TSH 1.780 uIU/mL Normal 0.300-4.200 [facility] Comment on above: Performed By: #### L 100.0100, L501.91394, L501.2450, L506.0400, L501.9520, L500.4050 ####[facility] [address] [place], [address] Urinalysis, Completeon 08-22 BACTERIA 1+ /hpf Normal None Seen [facility] Comment on above: Order Comment: CRITI ESA VALUE CALLED TO LEELA MCDONALD 08/22/25 [facility]2 Vidhya Pineda. RESULTS READ BACK BY SAME. CLEAN CATCH Performed By: #### L 400.0001 #### [facility] Laboratory [address] [place], [address] RBC 0-5 SEEN Normal 0-5 [facility] Comment on above: Order Comment: CRITI ESA VALUE CALLED TO LEELA MCDONALD 08/22/25 1102 Vidhya Pineda. RESULTS READ BACK BY SAME. CLEAN CATCH Performed By: #### L 400.0001 #### [facility] Laboratory [address] [place], [address] WBC 0-5 SEEN Normal 0-5 [facility] Comment on above: Order Comment: CRITI ESA VALUE CALLED TO LEELA MCDONALD 08/22/25 1102 Vidhya Pineda. RESULTS READ BACK BY SAME. CLEAN CATCH Performed By: #### L 400.0001 #### [facility] [address] [place], [address] EPI,SQUAMOUS 0 SEEN Normal 5-10 [facility] Comment on above: Order Comment: CRITI ESA VALUE CALLED TO LEELA MCDONALD 08/22/25 1102 Vidhya Pineda. RESULTS READ BACK BY SAME. CLEAN CATCH Performed By: #### L 400.0001 #### [facility] [address] [place], [address] Mucus Ql (Urine sed) 0 SEEN Normal [facility] Comment on above: Order Comment: CRITI ESA VALUE CALLED TO LEELA [facility] 08/22/25 1102 Vidhya Pineda. RESULTS READ BACK BY SAME. CLEAN CATCH Performed By: #### L 400.0001 #### [facility] Laboratory [address] [place], [address] Abdomen/Pelvis W IV Cont ONL Yon 08-18-2025 Abdomen/Pelvis W IV Cont ONLY [facility] Imaging Services [address] [place] [address] Abdomen/Pelvis W IV Cont ONLY MR#: [id number] Acct: [id number] Name: [place] Rep #: [id number] : 2000 F 24 From: Gilmer Rodriguez MD PCP: Dr. Elsa Bro MD Status: REG ER Study: Abdomen/Pelvis W IV Cont ONLY Date of Exam: Exam# [id number] Ordering Dr: Ridge Perez DO PROCEDURE: ABDOMEN/PELVIS [...] IMPRESSION: No acute abdominopelvic abnormalities. Reading Location: [facility] CC: Dr. Elsa Bro MD; Dr. Ridge Perez DO Telephone Sales Agent: Signed Normal [facility] Basic Metabolic Profile (BMP )on 08-18-2025 BUN/CRE 15.9 RATIO Normal 10-20 [facility] Comment on above: Performed By: #### L 500.3400, L700.6800, L500.2500, L505.5000, L100.0100, L501.2450 ####[facility] [address] [place], [address] Calcium [Mass/Vol] 10.4 mg/dL Normal 7.6-11.0 [facility] Comment on above: Performed By: #### L 500.3400, L700.6800, L500.2500, L505.5000, L100.0100, L501.2450 ####[facility] [address] [place], [address] Chloride [Moles/Vol] 105 mmol/L Normal 98-108 [facility] Comment on above: Performed By: #### L 500.3400, L700.6800, L500.2500, L505.5000, L100.0100, L501.2450 ####[facility] [address] [place], [place], [address] CO2 [Moles/Vol] 20.4 mmol/L Low 21.0-32.0 [facility] Comment on above: Performed By: #### L 500.3400, L700.6800, L500.2500, L505.5000, L100.0100, L501.2450 ####[facility] [address] [place], [place], [address] Creatinine [Mass/Vol] 0.65 mg/dL Low 0.70-1.20 [facility] Comment on above: Performed By: #### L 500.3400, L700.6800, L500.2500, L505.5000, L100.0100, L501.2450 ####[facility] [address] [place], [place], [address] ECRCL 145.14 ml/min Normal 50-250 [facility] Comment on above: Performed By: #### L 500.3400, L700.6800, L500.2500, L505.5000, L100.0100, L501.2450 ####[facility] [address] [place], [place], [address] GAP 15 Normal 5-15 [facility] Comment on above: Performed By: #### L 500.3400, L700.6800, L500.2500, L505.5000, L100.0100, L501.2450 ####[facility] [address] [place], [place], [address] GFR/1.73 sq M.predicted among non-blacks MDRD (S/P/Bld) [Vol rate/Area] 125 mL/min/{1.73_m2} Normal >60 [facility] Comment on above: Result Comment: mL/m in/1.73m2 CKD-EPI Creatinine Equation (2020) Performed By: #### L 500.3400, L700.6800, L500.2500, L505.5000, L100.0100, L501.2450 ####[facility] [address] [place], [address] Glucose [Mass/Vol] 152 mg/dL High 70-99 [facility] Comment on above: Performed By: #### L 500.3400, L700.6800, L500.2500, L505.5000, L100.0100, L501.2450 ####[facility] [address] [place], [address] Potassium [Moles/Vol] 3.5 mmol/L Normal 3.3-5.1 [facility] Comment on above: Performed By: #### L 500.3400, L700.6800, L500.2500, L505.5000, L100.0100, L501.2450 ####[facility] [address] [place], [address] Sodium [Moles/Vol] 140 mmol/L Normal 133-145 [facility] Comment on above: Performed By: #### L 500.3400, L700.6800, L500.2500, L505.5000, L100.0100, L501.2450 ####[facility] [address] [place], [address] Urea nitrogen [Mass/Vol] 10 mg/dL Normal 4-19 [facility] Comment on above: Performed By: #### L 500.3400, L700.6800, L500.2500, L505.5000, L100.0100, L501.2450 ####[facility] [address] [place], [address] CBC W/Diff, Automatedon 11-0 Absolute Lymph 2.09 X10 3/uL Normal 0.83-4.51 [facility] Comment on above: Performed By: #### L 500.3400, L700.6800, L500.2500, L505.5000, L100.0100, L501.2450 ####[facility] [address] [place], [address] Absolute Neut 13.9 X10 3/uL High 2.0-7.7 [facility] Comment on above: Performed By: #### L 500.3400, L700.6800, L500.2500, L505.5000, L100.0100, L501.2450 ####[facility] [address] [place], [address] Basophils/100 WBC (Bld) 0.4 % Normal 0-1 [facility] Comment on above: Performed By: #### L 500.3400, L700.6800, L500.2500, L505.5000, L100.0100, L501.2450 ####[facility] [address] [place], [address] Eosinophils/100 WBC (Bld) 0.6 % Normal 0-5 [facility] Comment on above: Performed By: #### L 500.3400, L700.6800, L500.2500, L505.5000, L100.0100, L501.2450 ####[facility] [address] [place], [address] Erythrocyte distribution width (RBC) [Ratio] 13.2 % Normal 11.6-14.6 [facility] Comment on above: Performed By: #### L 500.3400, L700.6800, L500.2500, L505.5000, L100.0100, L501.2450 ####[facility] [address] [place], [address] Hematocrit (Bld) [Volume fraction] 42.2 % Normal 37-47 [facility] Comment on above: Performed By: #### L 500.3400, L700.6800, L500.2500, L505.5000, L100.0100, L501.2450 ####[facility] [address] [place], [address] Hemoglobin (Bld) [Mass/Vol] 14.0 g/dL Normal 12.0-15.0 [facility] Comment on above: Performed By: #### L 500.3400, L700.6800, L500.2500, L505.5000, L100.0100, L501.2450 ####[facility] [address] [place], [address] IG% 0.600 Normal 0.0-0.9 [facility] Comment on above: Result Comment: IG% - Immature Granulocytes (promyelocytes, myelocytes and metamyelocytes) > 1% indicates that a LEFT SHIFT is Present. Performed By: #### L 500.3400, L700.6800, L500.2500, L505.5000, L100.0100, L501.2450 ####[facility] [address] [place], [address] Lymphocytes/100 WBC (Bld) 12.3 % Low 19-41 [facility] Comment on above: Performed By: #### L 500.3400, L700.6800, L500.2500, L505.5000, L100.0100, L501.2450 ####[facility] [address] [place], [address] MCH (RBC) [Entitic mass] 29.9 pg Normal 27.0-32.0 [facility] Comment on above: Performed By: #### L 500.3400, L700.6800, L500.2500, L505.5000, L100.0100, L501.2450 ####[facility] [address] [place], [address] MCHC (RBC) [Mass/Vol] 33.2 g/dL Normal 32-36 [facility] Comment on above: Performed By: #### L 500.3400, L700.6800, L500.2500, L505.5000, L100.0100, L501.2450 ####[facility] [address] [place], [address] MCV (RBC) [Entitic vol] 90.2 fL Normal 81-99 [facility] Comment on above: Performed By: #### L 500.3400, L700.6800, L500.2500, L505.5000, L100.0100, L501.2450 ####[facility] [address] [place], [address] Monocytes/100 WBC (Bld) 4.4 % Normal 0-10 [facility] Comment on above: Performed By: #### L 500.3400, L700.6800, L500.2500, L505.5000, L100.0100, L501.2450 ####[facility] [address] [place], [address] Neutrophils/100 WBC (Bld) 81.7 % High 47-70 [facility] Comment on above: Performed By: #### L 500.3400, L700.6800, L500.2500, L505.5000, L100.0100, L501.2450 ####[facility] [address] [place], [address] Nucleated RBC (Bld) [#/Vol] 0 10*3/uL Normal 0-5 [facility] Comment on above: Performed By: #### L 500.3400, L700.6800, L500.2500, L505.5000, L100.0100, L501.2450 ####[facility] [address] [place], [address] Platelet mean volume (Bld) [Entitic vol] 11.2 fL Normal 6.2-12.0 [facility] Comment on above: Performed By: #### L 500.3400, L700.6800, L500.2500, L505.5000, L100.0100, L501.2450 ####[facility] [address] [place], [address] Platelets (Bld) [#/Vol] 311 10*3/uL Normal 150-450 [facility] Comment on above: Performed By: #### L 500.3400, L700.6800, L500.2500, L505.5000, L100.0100, L501.2450 ####[facility] [address] [place], [address] RBC (Bld) [#/Vol] 4.68 10*6/uL Normal 4.2-5.4 [facility] Comment on above: Performed By: #### L 500.3400, L700.6800, L500.2500, L505.5000, L100.0100, L501.2450 ####[facility] [address] [place], [address] RDW SD 43.1 fl Normal 35.1-43.9 [facility] Comment on above: Performed By: #### L 500.3400, L700.6800, L500.2500, L505.5000, L100.0100, L501.2450 ####[facility] [address] [place], [address] WBC (Bld) [#/Vol] 17.0 10*3/uL High 4.4-11.0 [facility] Comment on above: Performed By: #### L 500.3400, L700.6800, L500.2500, L505.5000, L100.0100, L501.2450 ####[facility] [address] [place], [address] CNOVon 08-18-2025 CNOV Office Visit (INTMWS ) ----- [place] ([id number]) 2000 F [facility] Date Time Provider Department 08/18/25 9:20 AM KELLI BOYLE During your visit today, we recorded the following information about you: Temperature Pulse Respiration Blood pressure 98.2 degrees 90/minute 16/minute 148/90 Weight 87.1 kg Kelli Boyle APRN.[facility] 08/18/2025 10:58 AM Signed CC: Patient presents with: Diarrhea: Diarrhea daily, vomiting HPI Jackson Ny is a 24 year old female who presents today for diarrhea and vomiting. Visit difficult to fully complete due to the severity of vomiting throughout visit. Recording using [employer] software for draft documentation of the visit was discussed with the patient/authorized representative personal service; all questions welcomed and answered. Patient/authorized representative personal service agreed to proceed Giorgio Ny is a [...] vomit i (more content not included)... Normal [facility] Emergency Department Summary on 08-18-2025 Emergency Department Summary [facility] Medical Records Department [address] [place] [address] Emergency Department Summary 08/18/25 MR#: [id number] Acct: [id number] Name: [place] Rep #: [id number] : 2000 24 From: Ridge Perez DO [...] history of pancreatitis. No prior abdominal surgeries. [facility] Medical History Nexplanon insertion Acute blood [...] bilaterally Neck (more content not included)... Normal [facility] Lipaseon 08-18-2025 Lipase [Catalytic activity/Vol] 19 U/L Normal 13-75 [facility] Comment on above: Result Comment: Margareth sandoval note: LIPASE revised reference range effective 23. New Lipase methodology. Expected to produce lower values than the previous assay method. NEW Reference Range: 13 - 75 U/L Performed By: #### L 500.3400, L700.6800, L500.2500, L505.5000, L100.0100, L501.2450 ####[facility] [address] [place], [place], [address] Liver Profileon 08-18-2025 Albumin [Mass/Vol] 4.9 g/dL Normal 3.5-5.0 [facility] Comment on above: Performed By: #### L 500.3400, L700.6800, L500.2500, L505.5000, L100.0100, L501.2450 ####[facility] [address] [place], [address] ALK PHOS 81 U/L Normal 35-104 [facility] Comment on above: Performed By: #### L 500.3400, L700.6800, L500.2500, L505.5000, L100.0100, L501.2450 ####[facility] [address] [place], [address] ALT [Catalytic activity/Vol] 11 U/L Normal <=34 [facility] Comment on above: Performed By: #### L 500.3400, L700.6800, L500.2500, L505.5000, L100.0100, L501.2450 ####[facility] [address] [place], [address] AST [Catalytic activity/Vol] 17 U/L Normal <=31 [facility] Comment on above: Performed By: #### L 500.3400, L700.6800, L500.2500, L505.5000, L100.0100, L501.2450 ####[facility] [address] [place], [address] Bilirubin [Mass/Vol] 0.46 mg/dL Normal 0.00-1.30 [facility] Comment on above: Performed By: #### L 500.3400, L700.6800, L500.2500, L505.5000, L100.0100, L501.2450 ####[facility] [address] [place], [address] Bilirubin.direct [Mass/Vol] 0.18 mg/dL Normal 0.00-0.30 [facility] Comment on above: Performed By: #### L 500.3400, L700.6800, L500.2500, L505.5000, L100.0100, L501.2450 ####[facility] [address] [place], [place], [address] Globulin (S) [Mass/Vol] 3.3 g/dL Normal 2.2-4.2 [facility] Comment on above: Performed By: #### L 500.3400, L700.6800, L500.2500, L505.5000, L100.0100, L501.2450 ####[facility] [address] [facility] [address] T PROT 8.2 g/dL Normal 5.9-8.4 [facility] Comment on above: Performed By: #### L 500.3400, L700.6800, L500.2500, L505.5000, L100.0100, L501.2450 ####[facility] [address] [place] [address] ,Serum,hCG Quali.on 08-18-2025 HCG, SERUM QUAL Negative Normal [facility] Comment on above: Performed By: #### L 500.3400, L700.6800, L500.2500, L505.5000, L100.0100, L501.2450 ####[facility] [address] [place] [address] Urine Drug Screen (VISTA)on 08-18-2025 AMPHETAMINES Negative Normal <1000 ng/mL [facility] Comment on above: Performed By: #### L 500.3400, L700.6800, L500.2500, L505.5000, L100.0100, L501.2450 ####[facility] [address] [place] [address] BARBITIURATES Negative Normal < 200 ng/mL [facility] Comment on above: Performed By: #### L 500.3400, L700.6800, L500.2500, L505.5000, L100.0100, L501.2450 ####[facility] [address] [place] [address] BENZODIAZIPINE Negative Normal < 200 ng/mL [facility] Comment on above: Performed By: #### L 500.3400, L700.6800, L500.2500, L505.5000, L100.0100, L501.2450 ####[facility] [address] [place], [address] BUP Ur Drug Scr Negative Normal < 200 ng/mL [facility] Comment on above: Performed By: #### L 500.3400, L700.6800, L500.2500, L505.5000, L100.0100, L501.2450 ####[facility] [address] [place], [address] COCAINE Negative Normal < 300 ng/mL [facility] Comment on above: Performed By: #### L 500.3400, L700.6800, L500.2500, L505.5000, L100.0100, L501.2450 ####[facility] [address] [place], [address] Fentanyl Negative Normal <5 ng/mL [facility] Comment on above: Result Comment: CONF IRMATORY [...] L 500.3400, L700.6800, L500.2500, L505.5000, L100.0100, L501.2450 ####[facility] [address] [place], [address] METHADONE Negative Normal < 300 ng/mL [facility] Comment on above: Performed By: #### L 500.3400, L700.6800, L500.2500, L505.5000, L100.0100, L501.2450 ####[facility] [address] [place], [address] OPIATES Negative Normal < 300 ng/mL [facility] Comment on above: Performed By: #### L 500.3400, L700.6800, L500.2500, L505.5000, L100.0100, L501.2450 ####[facility] [address] [place], [address] OXYCODONE Negative Normal < 100 ng/mL [facility] Comment on above: Performed By: #### L 500.3400, L700.6800, L500.2500, L505.5000, L100.0100, L501.2450 ####[facility] [address] [place], [place], [phone] PCP Negative Normal < 25 ng/mL [facility] Comment on above: Performed By: #### L 500.3400, L700.6800, L500.2500, L505.5000, L100.0100, L501.2450 ####[facility] [address] [place], [place], [phone] THC Positive Normal < 50 ng/mL [facility] Comment on above: Result Comment: If c onfirmation testing is needed, a separate order will be required to send out testing to the reference laboratory. Performed By: #### L 500.3400, L700.6800, L500.2500, L505.5000, L100.0100, L501.2450 ####[facility] [address] [place], [address] BACTERIAL VAGINOSIS NAATon 1 0- Lactobacillus crispatus+gasseri+pierre senii + Gardnerella vaginalis + Atopobium vaginae rRNA JOSE+probe Ql (Vag fld) Not detected Normal Not detected [facility] Comment on above: Order Comment: Speci men Type: SWABOrdering Facility: [facility] Address: [address] [place] [address] Performed By: #### B VAMP, 37081-2 ####[facility] LABCLIA [id number] [place] [address] [place] C. trachomatis+N. gonorrhoea e DNA JOSE+probe Ql (Unsp spec)on 07-25-2025 C. trachomatis rRNA JOSE+probe Ql (Unsp spec) Not detected Normal Not detected [facility] Comment on above: Order Comment: Speci men Type: SWABOrdering Facility: [facility] Address: [address] [place] [address] Performed By: #### B VAMP, 23049-4 ####[facility] LABCLIA [id number] [place] [address] [place] N. gonorrhoeae rRNA JOSE+probe Ql (Unsp spec) Not detected Normal Not detected [facility] Comment on above: Order Comment: Speci men Type: SWABOrdering Facility: [facility] Address: [address] [place] [address] Performed By: #### B VAMP, 12453-8 ####[facility] LABCLIA [id number] [place] [address] [place] DAX/TRICHOMONAS NAATon 1 C. glabrata RNA JOSE+probe Ql (Vag fld) Not detected Normal Not detected [facility] Comment on above: Order Comment: Speci men Type: SWABOrdering Facility: [facility] Address: [address] [place] [address] Performed By: #### C VTV ####[facility] LABCLIA [id number] [place] [address] [place] Dax sp DNA JOSE+probe Ql (Vag fld) Not detected Normal Not detected [facility] Comment on above: Order Comment: Speci men Type: SWABOrdering Facility: [facility] Address: [address] [place] [address] Result Comment: The Dax species group target includes C. albicans, C. tropicalis, C. parapsilosis, and C. dubliniensis. Performed By: #### C VTV ####[facility] LABCLIA [id number] [address] [place] T. vaginalis DNA JOSE+probe Ql (Unsp spec) Not detected Normal Not detected [facility] Comment on above: Order Comment: Speci men Type: SWABOrdering Facility: [facility] Address: [address] [place] [address] Performed By: #### C VTV ####[facility] LABCLIA [id number] [address] [place] CNOVon 07-25-2025 CNOV Office Visit (WOUCA) ----- [place] ([id number]) 2000 [facility] Date Time Provider Department 07/25/25 12:15 PM TAINA ALBRIGHT During your visit today, we recorded the following information about you: Temperature Pulse Respiration Blood pressure 98 degrees 75/minute 18/minute 116/78 Weight 91 kg Taina Albright APRN.[employer]ST CONSULTANT 07/25/2025 12:36 PM Signed [facility] Subjective Jackson Quick Yanely is a 24 year old female. Patient [...] a few days ago. - Describes as uncomfortable with increased discharge, but denies itching or burning. - Denies presence of sores. - Sexually active; has herpes but not currently experiencing an outbreak. - Discharge described as normal in color, possibly slightly brown, but mostly [...] concerns with her doctor. and Recording using [employer] software for draft documentation of the visit was discussed with the patient/authorized representative personal service; all questions welcomed and answered. Patient/authorized representative personal service agreed to proceed MDM Procedures Allergies As [...] [R19.7] Order(s):BACTERIAL VAGINOSIS NAAT [SQBVAMP] Order #: [id number]. #:[id number] GONORRHEA/CHLAMYDIA NAAT [SQGCCT] Order #: [id number]. #:[id number] DAX/TRICHOMONAS NAAT [SQCVTV] Order #: [id number]. #:[id number] Prescriptions as of 07/25/2025 - levothyroxine (SYNTHROID) [...] first trimest (more content not included)... Normal [facility] CNOVon 07-14-2025 CNOV Office Visit (WOUCA) ----- [place] ([id number]) 2000 F [facility] Date Time Provider Department 07/14/25 5:00 PM LINDA FELTON During your visit today, we recorded the following information about you: Temperature Pulse Respiration Blood pressure 98.6 degrees 83/minute 18/minute 97/63 Weight 90 kg Linda Felton, TAVO.COST CONSULTANT 07/14/2025 5:16 PM Signed [facility] Subjective Jackson Ny is a 24 year [...] Discussed expected course of illness Linda Felton APRN.COST CONSULTANT and Recording using [employer] software for draft documentation of the visit was discussed with the patient/authorized representative personal service; all questions welcomed and answered. Patient/authorized representative personal service agreed to proceed Disposition The patient was [...] 7.0 times per week Types: Marijuana Misty-Linda Olmstead, SUE 07/14/2025 5:16 PM Signed 1. History of vomiting (Z87.898) - Acute episode of vomiting last night (3-4 times) with no further emesis today; no fever, chills, diarrhea, or abdomin (more content not included)... Normal [facility] CBC W Auto Differential pane l (Bld)on 05-08-2025 Basophils (Bld) [#/Vol] 0.06 10*3/uL [facility] Basophils/100 WBC (Bld) 0.6 % [facility] Differential cell count method Nom (Bld) Auto [facility] Eosinophils (Bld) [#/Vol] 0.13 10*3/uL [facility] Eosinophils/100 WBC (Bld) 1.2 % [facility] Erythrocyte distribution width (RBC) [Ratio] 12.9 % 11.5 - 15.0 % [facility] Hematocrit (Bld) [Volume fraction] 36.2 % 36.0 - 46.0 % [facility] Hemoglobin (Bld) [Mass/Vol] 11.5 g/dL 11.5 - 15.5 g/dL [facility] Immature granulocytes (Bld) [#/Vol] 0.04 10*3/uL [facility] Immature granulocytes/100 WBC (Bld) 0.4 % [facility] Lymphocytes (Bld) [#/Vol] 2.65 10*3/uL [facility] Lymphocytes/100 WBC (Bld) 25.4 % [facility] MCH (RBC) [Entitic mass] 29.3 pg 26.0 - 34.0 pg [facility] MCHC (RBC) [Mass/Vol] 31.8 g/dL 30.5 - 36.0 g/dL [facility] MCV (RBC) [Entitic vol] 92.3 fL 80.0 - 100.0 fL [facility] Monocytes (Bld) [#/Vol] 0.7 10*3/uL NINF [facility] Monocytes/100 WBC (Bld) 6.7 % [facility] Neutrophils (Bld) [#/Vol] 6.87 10*3/uL [facility] Neutrophils/100 WBC (Bld) 65.7 % [facility] Nucleated RBC (Bld) [#/Vol] NINF [facility] Nucleated RBC/100 WBC (Bld) [Ratio] 0 % /100 WBC [facility] Platelet mean volume (Bld) [Entitic vol] 11.6 fL 9.0 - 12.7 fL [facility] Platelets (Bld) [#/Vol] 265 10*3/uL [facility] RBC (Bld) [#/Vol] 3.92 10*6/uL 3.90 - 5.2 0 m/uL [facility] WBC (Bld) [#/Vol] 10.45 10*3/uL [facility] Basophils (Bld) [#/Vol] 0.06 10*3/uL Normal <0.11 [facility] Comment on above: Order Comment: Speci men Type: BLOOD SPECIMENOrdering Facility: [facility] Address: [address] [place] [address] Performed By: #### 5 7021-8 ####[facility] LABIA [id number] [place] [address] [place] Basophils/100 WBC (Bld) 0.6 % Normal [facility] Comment on above: Order Comment: Speci men Type: BLOOD SPECIMENOrdering Facility: [facility] Address: [address] [place] [address] Performed By: #### 5 7021-8 ####[facility] LABIA [id number] [place] [address] [place] Differential cell count method Nom (Bld) Auto Normal [facility] Comment on above: Order Comment: Speci men Type: BLOOD SPECIMENOrdering Facility: [facility] Address: [address] [place] [address] Performed By: #### 5 7021-8 ####[facility] LABCLIA [id number] [address] [place] [address] [place] Eosinophils (Bld) [#/Vol] 0.13 10*3/uL Normal <0.46 [facility] Comment on above: Order Comment: Speci men Type: BLOOD SPECIMENOrdering Facility: [facility] Address: [address] [place] [address] Performed By: #### 5 7021-8 ####[facility] LABCLIA [id number] [address], [place] [address] [place] Eosinophils/100 WBC (Bld) 1.2 % Normal [facility] Comment on above: Order Comment: Speci men Type: BLOOD SPECIMENOrdering Facility: [facility] Address: [address] [place] [address] Performed By: #### 5 7021-8 ####[facility] LABIA [id number] [address], [place] [address] [place] Erythrocyte distribution width (RBC) [Ratio] 12.9 % Normal 11.5-15.0 [facility] Comment on above: Order Comment: Speci men Type: BLOOD SPECIMENOrdering Facility: [facility] Address: [address] [place] [address] Performed By: #### 5 7021-8 ####[facility] LABCLIA [id number] [address], [place] [address] [place] Hematocrit (Bld) [Volume fraction] 36.2 % Normal 36.0-46.0 [facility] Comment on above: Order Comment: Speci men Type: BLOOD SPECIMENOrdering Facility: [facility] Address: [address] [place] [address] Performed By: #### 5 7021-8 ####[facility] LABCLIA [id number] [address] [place] [address] [place] Hemoglobin (Bld) [Mass/Vol] 11.5 g/dL Normal 11.5-15.5 [facility] Comment on above: Order Comment: Speci men Type: BLOOD SPECIMENOrdering Facility: [facility] Address: [address] [place] [address] Performed By: #### 5 7021-8 ####[facility] LABCLIA [id number] [place] [address] [place] Immature granulocytes (Bld) [#/Vol] 0.04 10*3/uL Normal <0.10 [facility] Comment on above: Order Comment: Speci men Type: BLOOD SPECIMENOrdering Facility: [facility] Address: [address] [place] [address] Performed By: #### 5 7021-8 ####[facility] [facility] LABCLIA [id number] [place] [address] [place] Immature granulocytes/100 WBC (Bld) 0.4 % Normal [facility] Comment on above: Order Comment: Speci men Type: BLOOD SPECIMENOrdering Facility: [facility] Address: [address] [place] [address] Performed By: #### 5 7021-8 ####[facility] LABCLIA [id number] [place] [address] [place] Lymphocytes (Bld) [#/Vol] 2.65 10*3/uL Normal 1.00-4.00 [facility] Comment on above: Order Comment: Speci men Type: BLOOD SPECIMENOrdering Facility: [facility] Address: [address] [place] [address] Performed By: #### 5 7021-8 ####[facility] LABCLIA [id number] [place] [address] [place] Lymphocytes/100 WBC (Bld) 25.4 % Normal [facility] Comment on above: Order Comment: Speci men Type: BLOOD SPECIMENOrdering Facility: [facility] Address: [address] [place] [address] Performed By: #### 5 7021-8 ####[facility] LABIA [id number] [place] [address] [place] MCH (RBC) [Entitic mass] 29.3 pg Normal 26.0-34.0 [facility] Comment on above: Order Comment: Speci men Type: BLOOD SPECIMENOrdering Facility: [facility] Address: [address] [place] [address] Performed By: #### 5 7021-8 ####[facility] LABIA [id number] [place] [address] [place] MCHC (RBC) [Mass/Vol] 31.8 g/dL Normal 30.5-36.0 [facility] Comment on above: Order Comment: Speci men Type: BLOOD SPECIMENOrdering Facility: [facility] Address: [address] [place] [address] Performed By: #### 5 7021-8 ####[facility] [id number] [place] [address] [place] MCV (RBC) [Entitic vol] 92.3 fL Normal 80.0-100.0 [facility] Comment on above: Order Comment: Speci men Type: BLOOD SPECIMENOrdering Facility: [facility] Address: [address] [place] [address] Performed By: #### 5 7021-8 ####[facility] LABIA [id number] [place] [address] [place] Monocytes (Bld) [#/Vol] 0.70 10*3/uL Normal <0.87 [facility] Comment on above: Order Comment: Speci men Type: BLOOD SPECIMENOrdering Facility: [facility] Address: [address] [place] [address] Performed By: #### 5 7021-8 ####[facility] [id number] [address] [id number] [address] [place] Monocytes/100 WBC (Bld) 6.7 % Normal [facility] Comment on above: Order Comment: Speci men Type: BLOOD SPECIMENOrdering Facility: [facility] Address: [address] [place] [address] Performed By: #### 5 7021-8 ####[facility] LABCLIA [id number] [facility] [place] [address] [place] Neutrophils (Bld) [#/Vol] 6.87 10*3/uL Normal 1.45-7.50 [facility] Comment on above: Order Comment: Speci men Type: BLOOD SPECIMENOrdering Facility: [facility] Address: [address] [place] [address] Performed By: #### 5 7021-8 ####[facility] LABCLIA [id number] [place] [address] [place] Neutrophils/100 WBC (Bld) 65.7 % Normal [facility] Comment on above: Order Comment: Speci men Type: BLOOD SPECIMENOrdering Facility: [facility] Address: [address] [place] [address] Performed By: #### 5 7021-8 ####[facility] LABCLIA [id number] [place] [address] [place] Nucleated RBC (Bld) [#/Vol] 10*3/uL Normal <0.01 [facility] Comment on above: Order Comment: Speci men Type: BLOOD SPECIMENOrdering Facility: [facility] Address: [address] [place] [address] Performed By: #### 5 7021-8 ####[facility] LABCLIA [id number] [place] [address] [place] Nucleated RBC/100 WBC (Bld) [Ratio] 0.0 /100 WBC Normal [facility] Comment on above: Order Comment: Speci men Type: BLOOD SPECIMENOrdering Facility: [facility] Address: [address] [place] [address] Performed By: #### 5 7021-8 ####[facility] LABCLIA [id number] [facility] [place] [address] [place] Platelet mean volume (Bld) [Entitic vol] 11.6 fL Normal 9.0-12.7 [facility] Comment on above: Order Comment: Speci men Type: BLOOD SPECIMENOrdering Facility: [facility] Address: [address] [place] [address] Performed By: #### 5 7021-8 ####[facility] LABIA [id number] [place] [address] [place] Platelets (Bld) [#/Vol] 265 10*3/uL Normal 150-400 [facility] Comment on above: Order Comment: Speci men Type: BLOOD SPECIMENOrdering Facility: [facility] Address: [address] [place] [address] Performed By: #### 5 7021-8 ####[facility] LABIA [id number] [place] [address] [place] RBC (Bld) [#/Vol] 3.92 10*6/uL Normal 3.90-5.20 [facility] Comment on above: Order Comment: Speci men Type: BLOOD SPECIMENOrdering Facility: [facility] Address: [address] [place] [address] Performed By: #### 5 7021-8 ####[facility] LABCLIA [id number] [place] [address] [place] WBC (Bld) [#/Vol] 10.45 10*3/uL Normal 3.70-11.00 [facility] Comment on above: Order Comment: Speci men Type: BLOOD SPECIMENOrdering Facility: [facility] Address: [address] [place] [address] Performed By: #### 5 7021-8 ####[facility] LABCLIA [id number] [place] [id number] [facility] CNOVon 05-08-2025 CNOV Office Visit (INTMWS ) ----- YANELYJACKSON COLE ([id number]) 2000 F [place] Date Time Provider Department 05/08/25 1:40 PM KELLI BOYLE INTKATHY During your visit today, we recorded the following information about you: Pulse Respiration Blood pressure Weight 82/minute 16/minute 112/70 90.3 kg Kelli Boyle APRN.CNP 05/08/2025 5:16 PM Signed CC: Patient presents with: Physical: Annual Physical HPI Gosspeña Ny is a 24 year old female who presents today for annual exam but also has some concerns. Recording using [employer] software for draft documentation of the visit was discussed with the patient/authorized representative personal service; all questions welcomed and answered. Patient/authorized representative personal service agreed to proceed Annual Wellness Exam: - Recent removal of Nexplanon implant, approximately one month ago. - Works at [employer]. - Has a 1-year-old child. - Denies regular exercise; diet described as not terrible, but not that bad. Hypothyroidism: - Diagnosed approximately 6 months ago; currently taking levothyroxine as ordered by endocrinology. - Next thyroid level check scheduled for August. - Experiencing nausea, diarrhea, heat intolerance, and fatigue. - Nausea occurs in the morning after taking medication. - Diarrhea follows eating, lasting until around 11:00-12:00. - Heat intolerance described as feeling a million degrees at all times. - Denies hair, skin, or nail changes. - Recent weight gain; questions if thyroid medication should cause weight loss. - Denies increased thirst hunger or urination - Denies dizziness, syncope, weakness, confusion, or severe headaches. - Denies fever, chills, cough, wheezing, or dyspnea. - Denies urinary changes or dysuria. - Denies emesis, but reports one episode of phony spit stuff at work. - Denies chest pressure edema [...] B Vaccine (more content not included)... Normal [facility] metabolic 2000 panelon 05-08-2025 Albumin [Mass/Vol] 4.4 g/dL 3.9 - 4.9 g/dL [facility] ALP [Catalytic activity/Vol] 80 U/L 34 - 123 U/L [facility] ALT [Catalytic activity/Vol] 19 U/L 7 - 38 U/L [facility] Anion gap [Moles/Vol] 12 mmol/L 8 - 15 mmol/L [facility] AST [Catalytic activity/Vol] 20 U/L 13 - 35 U/L [facility] Bilirubin [Mass/Vol] 0.2 mg/dL 0.2 - 1 .3 mg/dL [facility] Calcium [Mass/Vol] 9.7 mg/dL 8.5 - 10. 2 mg/dL [facility] Chloride [Moles/Vol] 103 mmol/L 98 - 10 7 mmol/L [facility] CO2 [Moles/Vol] 21 mmol/L Low 22 - 30 mmol/L [facility] Creatinine [Mass/Vol] 0.71 mg/dL 0.58 - 0.96 mg/dL [facility] GFR/1.73 sq M.predicted among non-blacks MDRD (S/P/Bld) [Vol rate/Area] 120 mL/min/{1.73_m2} - PINF [facility] Comment on above: Estimated Glomerular Filtration Rate [...] [Mass/Vol] 95 mg/dL 74 - 99 mg/dL [facility] Comment on above: The [place] Diabete s Association (ADA) provides guidance for [...] Standards of Medical Care in Diabetes 2016, [place] Diabetes Association. Diabetes Care. 2016.39(Suppl 1). Interpretation and review of laboratory results Abnormal [facility] Potassium [Moles/Vol] 4.3 mmol/L 3.7 - 5.1 mmol/L [facility] Protein [Mass/Vol] 7.3 g/dL 6.3 - 8.0 g/dL [facility] Sodium [Moles/Vol] 136 mmol/L 136 - 144 mmol/L [facility] Urea nitrogen [Mass/Vol] 16 mg/dL 7 - 21 mg/dL [facility] Albumin [Mass/Vol] 4.4 g/dL Normal 3.9-4.9 [facility] Comment on above: Order Comment: Speci men Type: BLOOD SPECIMENOrdering Facility: [facility] Address: [address] [place] [address] Performed By: #### 2 4323-8, 3024-7, 3016-3, 2132-9 ####[facility] LABCLIA [id number] [place] [address] [place] ALP [Catalytic activity/Vol] 80 U/L Normal 34-123 [facility] Comment on above: Order Comment: Speci men Type: BLOOD SPECIMENOrdering Facility: [facility] Address: [address] [place] [address] Performed By: #### 2 4323-8, 3024-7, 3, 2132-06 ####[facility] LABCLIA [id number] [facility] [address] [address] [place] ALT [Catalytic activity/Vol] 19 U/L Normal 7-38 [facility] Comment on above: Order Comment: Speci men Type: BLOOD SPECIMENOrdering Facility: [facility] Address: [address] [place] [address] Performed By: #### 2 4323-8, 3024-7, 3, 2132-06 ####[facility] LABCLIA [id number] [address] [address] [place] Anion gap [Moles/Vol] 12 mmol/L Normal 8-15 [facility] Comment on above: Order Comment: Speci men Type: BLOOD SPECIMENOrdering Facility: [facility] Address: [address] [place] [address] Performed By: #### 2 4323-8, 3024-7, 3, 2132-06 ####[facility] LABCLIA [id number] [address] [address] [place] AST [Catalytic activity/Vol] 20 U/L Normal 13-35 [facility] Comment on above: Order Comment: Speci men Type: BLOOD SPECIMENOrdering Facility: [facility] Address: [address] [place] [address] Performed By: #### 2 4323-8, 302-7, 3, 2132-06 ####[facility] LABCLIA [id number] [facility] [address] [address] [place] Bilirubin [Mass/Vol] 0.2 mg/dL Normal 0.2-1.3 [facility] Comment on above: Order Comment: Speci men Type: BLOOD SPECIMENOrdering Facility: [facility] Address: [address] [place] [address] Performed By: #### 2 4323-8, 302-7, 3, 2132-06 ####[facility] LABCLIA [id number] [facility] [address] [address] [place] Calcium [Mass/Vol] 9.7 mg/dL Normal 8.5-10.2 [facility] Comment on above: Order Comment: Speci men Type: BLOOD SPECIMENOrdering Facility: [facility] Address: [address] [place] [address] Performed By: #### 2 4323-8, 302-7, 3, 2132-06 ####[facility] LABIA [id number] [facility] [address] [address] [place] Chloride [Moles/Vol] 103 mmol/L Normal 98-107 [facility] Comment on above: Order Comment: Speci men Type: BLOOD SPECIMENOrdering Facility: [facility] Address: [address] [place] [address] Performed By: #### 2 4323-8, 3023-7, 3015-12, 2132-06 ####[facility] LABIA [id number] [facility] [address] [address] [place] CO2 [Moles/Vol] 21 mmol/L Low 22-30 [facility] Comment on above: Order Comment: Speci men Type: BLOOD SPECIMENOrdering Facility: [facility] Address: [address] [place] [address] Performed By: #### 2 4323-8, 3023-7, 3, 2132-06 ####[facility] LABCLIA [id number] [facility] [address] [place] [address] [place] Creatinine [Mass/Vol] 0.71 mg/dL Normal 0.58-0.96 [facility] Comment on above: Order Comment: Margoth nuñez Type: BLOOD SPECIMENOrdering Facility: [facility] Address: [address] [place] [address] Performed By: #### 2 4323-8, 3024-7, 6-3, 2132-06 ####[facility] LABCLIA [id number] [address] [address] [place] eGFRcr SerPlBld CKD-EPI 2020 120 mL/min/1.73m??? Normal >=60 [facility] Comment on above: Order Comment: Margoth nuñez Type: BLOOD SPECIMENOrdering Facility: [facility] Address: [address] [place] [address] Result Comment: Honey mated Glomerular Filtration Rate [...] 3015-3, 2132-06 ####[facility] LABCLIA [id number] [address] [address] [place] Glucose [Mass/Vol] 95 mg/dL Normal 74-99 [facility] Comment on above: Order Comment: Margoth nuñez Type: BLOOD SPECIMENOrdering Facility: [facility] Address: [address] [place] [address] Result Comment: The [place] Diabetes Association (ADA) provides guidance for cutoff [...] Standards of Medical Care in Diabetes 2016, [place] Diabetes Association. Diabetes Care. 2016.39(Suppl 1). Performed By: #### 2 4323-8, 4-7, 3015-12, 2132-06 ####[facility] LABCLIA [id number] [facility] [address] [place] [address] [place] Potassium [Moles/Vol] 4.3 mmol/L Normal 3.7-5.1 [facility] Comment on above: Order Comment: Speci men Type: BLOOD SPECIMENOrdering Facility: [facility] Address: [address] [place] [address] Performed By: #### 2 4323-8, 7, 3015-12, 2132-06 ####[facility] LABCLIA [id number] [address] [address] [place] Protein [Mass/Vol] 7.3 g/dL Normal 6.3-8.0 [facility] Comment on above: Order Comment: Speci men Type: BLOOD SPECIMENOrdering Facility: [facility] Address: [address] [place] [address] Performed By: #### 2 4323-8, 7, 3015-12, 2132-06 ####[facility] LABIA [id number] [address] [address] [place] Sodium [Moles/Vol] 136 mmol/L Normal 136-144 [facility] Comment on above: Order Comment: Speci men Type: BLOOD SPECIMENOrdering Facility: [facility] Address: [address] [place] [address] Performed By: #### 2 4323-8, 7, 3015-12, 2132-06 ####[facility] LABCLIA [id number] [facility] [address] [address] [place] Urea nitrogen [Mass/Vol] 16 mg/dL Normal 7-21 [facility] Comment on above: Order Comment: Speci men Type: BLOOD SPECIMENOrdering Facility: [facility] Address: [address] [place] [phone] Performed By: #### 2 4323-8, 3024-7, 3016-3, 9 ####[facility] LABCLIA [id number] [address] [address] [place] No Panel Informationon 05-08 Interpretation and review of laboratory results Normal [facility] T4 FREE/FREE THYROXINEon Free T4 [Mass/Vol] 0.9 ng/dL 0.9 - 1.7 ng/dL [facility] T4 Free SerPl-mCncon 025 Free T4 [Mass/Vol] 0.9 ng/dL Normal 0.9-1.7 [facility] Comment on above: Order Comment: Speci men Type: BLOOD SPECIMENOrdering Facility: [facility] Address: [address] [place], [place] [address] [phone] Performed By: #### 2 4323-8, 3024-7, 3016-3, 9 ####[facility] LABCLIA [id number] [address] [address] [place] THYROID STIMULATING HORMONEo n 05-08-2025 TSH Qn 2.61 m[IU]/L [facility] Comment on above: If the patient is [...] Velasco et al. 2017 Guidelines of the [place] Thyroid Association for the Diagnosis and Management of Thyroid Disease during and the . Thyroid, 2017:27:3:315-389. TSH SerPl-aCncon 05-08-2025 TSH Qn 2.610 m[IU]/L Normal 0.270-4.200 [facility] Comment on above: Order Comment: Margoth nuñez Type: BLOOD SPECIMENOrdering Facility: [facility] Address: [address] [place] [address] Result Comment: If t he patient is , TSH reference range varies by gestational period: First Trimester (weeks 9-12): 0.180-2.990 mIU/L Second Trimester: 0.110-3.980 mIU/L Third Trimester: 0.480-4.710 mIU/L Sung Cordero et al. A Practical Approach for the Verifications and Determination of Site- and Trimester-Specific Reference Intervals for Thyroid Function tests in . Thyroid, 2019:29:3:412-420. Feng Velasco, et al. 2017 Guidelines of the [place] Thyroid Association for the Diagnosis and Management of Thyroid Disease during and the . Thyroid, 2017:27:3:315-389. Performed By: #### 2 4323-8, 3024-7, 3016-3, 2132-06 ####[facility] INCIA [id number] [place] [address] [place] VITAMIN B12on 05-08-2025 Cobalamin (Vitamin B12) [Mass/Vol] 449 pg/mL 232 - 1245 pg/mL [facility] Vit B12 SerPl-mCncon 05-08- 025 Cobalamin (Vitamin B12) [Mass/Vol] 449 pg/mL Normal 232-1245 [facility] Comment on above: Order Comment: Margoth nuñez Type: BLOOD SPECIMENOrdering Facility: [facility] Address: [address] [facility] [place] [address] Performed By: #### 2 4323-8, 3024-7, 3016-3, 9 ####[facility] LABIA [id number] [address] [place] CNOVon 04-24-2025 CNOV Office Visit (WOUCA) ----- [place] ([id number]) 2000 F [place] Date Time Provider Department 04/24/25 6:00 PM BINTA HATHAWAY During your visit today, we recorded the following information about you: Temperature Pulse Respiration Blood pressure 98.6 degrees 65/minute 18/minute 112/76 Weight 88.4 kg Binta Hathaway, ANVIL WORKER.COST CONSULTANT 04/24/2025 7:15 PM Signed [facility] Subjective Jackson Ny is a 24 year old female. Patient presents with: Vomiting: Vomiting x 1 day HPI Emesis: - Emesis x3-4 episodes this morning. - Denies diarrhea. - Reports feeling hungover every morning for the past few days, [...] to work tomorrow. and Recording using ambient [employer] software for draft documentation of the visit was discussed with the patient/authorized representative personal service; all questions welcomed and answered. Patient/authorized representative personal service agreed to proceed MDM Procedures Allergies As of Date: 04/24/2025 Noted Allergy Reaction AMOXICILLIN 11/24/2013 7 - Swelling LAVENDER (LAVANDULA ANGUSTIFOLIA) 03/12/2023 2 - Rash Date Reviewed: 04/24/2025 Reviewed by: Ene Lowery LPN - Fully [...] Take 5 (more content not included)... Normal [facility] Emergency Department Summary on 04-15-2025 Emergency Department Summary [facility] Medical Records Department [address] [place] [address] Emergency Department Summary 04/15/25 MR#: [id number] Acct: [id number] Name: [place] Rep #: [id number] : 2000 24 From: Tremayne Quiñonez MD [...] mouth swelling, tongue swelling or urticaria PFSH PFS Medical History Nexplanon insertion Acute blood loss [...] Rate 14 (more content not included)... Normal [facility] M100.677on 04-15-2025 M100.677 S pyo rRNA Throat Ql Probe Normal Reference Range = Negative S pyo rRNA Throat Ql Probe GeneXpert Instrument, PCR method Rapid Strep A PCR NEGATIVE Normal [facility] Comment on above: Performed By: #### M 100.677 #### [facility] Laboratory [facility], [address] CNOVon 03-22-2025 CNOV Office Visit (OBGYWM ) ----- [place] ([id number]) 2000 F UPA Date Time Provider Department 03/22/25 3:20 PM KARINA KWONG During your visit today, we recorded the following information about you: Blood pressure Weight Last Period 116 88.9 kg 03/18/25 Karina Kwong MD 03/22/2025 [...] Karina Kwong MD Referring Provider: BINTA CARCAMO [[id number]] Allergies As of Date: 03/22/2025 Noted Allergy [...] Encounter Status:Closed by KARINA KWONG on 03/22/25 [facility] CNOVon 03-10-2025 CNOV Office Visit (ENWSTR ) ----- [place] ([id number]) 2000 F UPA Date Time Provider Department 03/10/25 2:40 PM RUTHIE LUNA During your visit today, we recorded the following information about you: Temperature Pulse Blood pressure Weight 98.6 degrees 95/minute 110/70 86.9 kg Height Last Period 1.676 m 02/24/25 Ruthie Luna MD 03/12/2025 11:15 PM Signed [facility] Follow up note CONSULTING PROVIDER: Reagan Campos APRN. COST CONSULTANT (OBGYN) My final recommendations will be communicated back to the requesting provider by way of shared Medical record or a letter via U.[place] mail Subjective: Gosspeña Ny is a 24 year old female [...] ?F) (Temporal Artery) Ht 167.6 cm (5' 6) Wt 86.9 kg (191 lb 9.6 oz) [...] the Tamera (more content not included)... [facility] CNPN Telephone (OBGYWM) ----- [place] ([id number]) 2000 F UPA Date Time Provider Department [...] Primary Visit Diagnosis:Nexplanon removal [Z30.46] Order(s):NEXPLANON REMOVAL [9885972] Order #: [id number] Prescriptions as of 03/10/2025 - prazosin (MINIPRESS) [...] Encounter Status:Closed by ALYSON BARKSDALE on 03/10/25 [facility] CNOVon 02-22-2025 CNOV Office Visit (OBGYWM ) ----- [place] ([id number]) 2000 F UPA Date Time Provider Department 02/22/25 1:45 PM BINTA CARCAMO OBYAZMIN During your visit today, we recorded the following information about you: Blood pressure Weight Last Period 118/60 85.4 kg 02/06/25 Binta Carcamo APRN.CNM 02/22/2025 2:13 PM Signed Obst[facility]s [facility] [employer]ER Visit Subjective Recording using ambient [employer] software for draft documentation of the visit was discussed with the patient/authorized representative personal service; all questions welcomed and answered. 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 Event Manager initiated levothyroxine therapy. 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 Vulvar pruritus (L29.2) Intermittent pruritus, no current sexual activity or new partners. Recent evaluation for yeast infection and BV was negative. - Recommended boric acid suppositories or wash from [employer]. - Advised daily (more content not included)... Normal [facility] BACTERIAL VAGINOSIS NAATon 0 4 Lactobacillus crispatus+gasseri+pierre senii + Gardnerella vaginalis + Atopobium vaginae rRNA JOSE+probe Ql (Vag fld) Not detected Normal Not detected [facility] Comment on above: Order Comment: Speci men Type: SWABOrdering Facility: [facility] Address: [address] [place] [address] Performed By: #### B VAMP, 93855-9 ####[facility] LABCLIA [id number] [place] [address] [place] C. trachomatis+N. gonorrhoea e DNA JOSE+probe Ql (Unsp spec)on 01-12-2025 C. trachomatis rRNA JOSE+probe Ql (Unsp spec) Not detected Normal Not detected [facility] Comment on above: Order Comment: Speci men Type: SWABOrdering Facility: [facility] Address: [address] [place] [address] Performed By: #### B VAMP, 55747-7 ####[facility] LABCLIA [id number] [address] [place] N. gonorrhoeae rRNA JOSE+probe Ql (Unsp spec) Not detected Normal Not detected [facility] Comment on above: Order Comment: Speci men Type: SWABOrdering Facility: [facility] Address: [address] [place] [address] Performed By: #### B VAMP, 57134-2 ####[facility] LABCLIA [id number] [place] [address] [place] DAX/TRICHOMONAS NAATon 0 01-12-2025 C. glabrata RNA JOSE+probe Ql (Vag fld) Not detected Normal Not detected [facility] Comment on above: Order Comment: Speci men Type: SWABOrdering Facility: [facility] Address: [address] [place] [address] Performed By: #### C VTV ####[facility] LABCLIA [id number] [place] [address] [place] Dax sp DNA JOSE+probe Ql (Vag fld) Not detected Normal Not detected [facility] Comment on above: Order Comment: Speci men Type: SWABOrdering Facility: [facility] Address: [address] [place] [address] Result Comment: The Dax species group target includes C. albicans, C. tropicalis, C. parapsilosis, and C. dubliniensis. Performed By: #### C VTV ####[facility] LABIA [id number] [address] T. vaginalis DNA JOSE+probe Ql (Unsp spec) Not detected Normal Not detected [facility] Comment on above: Order Comment: Speci men Type: SWABOrdering Facility: [facility] Address: [address] [place] [address] Performed By: #### C VTV ####[facility] LABCLIA [id number] [address] [facility] CNOVon 01-12-2025 CNOV Office Visit (OBGYWM ) ----- [place] ([id number]) 2000 F [facility] Date Time Provider Department 01/12/25 8:00 AM REAGAN CAMPOS OBLIBBYWuYki During your visit today, we recorded the following information about you: Blood pressure Weight 112/60 83 kg Reagan Campos APRN.COST CONSULTANT 01/12/2025 8:29 AM Signed Chief Deputy Clerk/Bailiff offered: Patient declines. Jackson Ny is a [...] discussed with the Patient or Patient's Authorized Infertility Medical Assistant. As applicable, any other physician, advance practice provider, medical student, or other health professional student that will be observing or involved in the sensitive examination for educational or training purposes was discussed with the Patient or Authorized Infertility Medical Assistant. The Patient or Authorized Infertility Medical Assistant has agreed to proceed with the sensitive examination. (Sensitive examination includes inspection and/or palpation of the breasts, pelvis, prostate and anorectal regions). BP 112/60 Wt 183 lb (83.0kg) LMP 12/28/2024 GENERAL: Well developed, well nourished in no apparent distress PELVIC: external genitalia normal, normal Bartholin's glands, urethra, [place]'s glands, no vulvar lesions, no cervical lesions, [...] function - Send suppressive therapy Reagan Campos APRN.COST CONSULTANT Medical Decision Making: Problems: Low: Acute, uncomplicated [...] Date Reviewed: 01/12/2025 Reviewed by: Reagan Campos APRN.COST CONSULTANT - Fully Assessed Reason for Visit: Vaginal Problem [117] Primary Visit Diagnosis:Vaginal discharge [N89.8] Other Visit Diagnoses:Vaginal itching [N89.8] Recurrent genital herpes [A60.00] Order(s):BACTERIAL VAGINOSIS NAAT [SQBVAMP] Order #: [id number] DAX/TRICHOMONAS NAAT [SQCVTV] Order #: [id number] COMPREHENSIVE METABOLIC PANEL [SQCMP] Order #: [id number] FUTURE GONORRHEA/CHLAMYDIA NAAT [SQGCCT] Order #: [id number] Prescriptions as of 01/12/2025 - levothyroxine (SYNTHROID) 75 mcg tablet Take 1 tablet by mouth once daily. - etonogestrel (NEXPLANON) 68 mg impl subdermal impl (more content not included)... Normal [facility] metabolic 2000 panelon 01-12-2025 Albumin [Mass/Vol] 4.3 g/dL Normal 3.9-4.9 [facility] Comment on above: Order Comment: Speci men Type: BLOOD SPECIMENOrdering Facility: [facility] Address: [address] [place] [address] Performed By: #### 2 4323-8 ####[facility] LABCLIA [id number] [place] [address] [place] ALP [Catalytic activity/Vol] 75 U/L Normal 34-123 [facility] Comment on above: Order Comment: Speci men Type: BLOOD SPECIMENOrdering Facility: [facility] Address: [address] [place] [address] Performed By: #### 2 4323-8 ####[facility] LABCLIA [id number] [place] [address] [place] ALT [Catalytic activity/Vol] 23 U/L Normal 7-38 [facility] Comment on above: Order Comment: Speci men Type: BLOOD SPECIMENOrdering Facility: [facility] Address: [address] [place] [address] Performed By: #### 2 4323-8 ####[facility] LABCLIA [id number] [place] [address] [place] Anion gap [Moles/Vol] 11 mmol/L Normal 8-15 [facility] Comment on above: Order Comment: Speci men Type: BLOOD SPECIMENOrdering Facility: [facility] Address: [address] [place] [address] Performed By: #### 2 4323-8 ####[facility] LABCLIA [id number] [place] [address] [place] AST [Catalytic activity/Vol] 17 U/L Normal 13-35 [facility] Comment on above: Order Comment: Speci men Type: BLOOD SPECIMENOrdering Facility: [facility] Address: [address] [place] [address] Performed By: #### 2 4323-8 ####[facility] LABCLIA [id number] [place] [address] [place] Bilirubin [Mass/Vol] 0.3 mg/dL Normal 0.2-1.3 [facility] Comment on above: Order Comment: Speci men Type: BLOOD SPECIMENOrdering Facility: [facility] Address: [address] [place] [address] Performed By: #### 2 4323-8 ####[facility] LABCLIA [id number] [place] [address] [place] Calcium [Mass/Vol] 9.7 mg/dL Normal 8.5-10.2 [facility] Comment on above: Order Comment: Speci men Type: BLOOD SPECIMENOrdering Facility: [facility] Address: [address] [place] [address] Performed By: #### 2 4323-8 ####[facility] LABCLIA [id number] [place] [address] [place] Chloride [Moles/Vol] 104 mmol/L Normal 98-107 [facility] Comment on above: Order Comment: Speci men Type: BLOOD SPECIMENOrdering Facility: [facility] Address: [address] [place] [address] Performed By: #### 2 4323-8 ####[facility] LABCLIA [id number] [place] [address] [place] CO2 [Moles/Vol] 23 mmol/L Normal 22-30 [facility] Comment on above: Order Comment: Speci men Type: BLOOD SPECIMENOrdering Facility: [facility] Address: [address] [place], [place] [address] Performed By: #### 2 4323-8 ####[facility] LABCLIA [id number] [place] [address] [place] Creatinine [Mass/Vol] 0.56 mg/dL Low 0.58-0.96 [facility] Comment on above: Order Comment: Margoth nuñez Type: BLOOD SPECIMENOrdering Facility: [facility] Address: [address] [place] [address] Performed By: #### 2 4323-8 ####[facility] LABCLIA [id number] [place] [address] [place] Creatinine and Glomerular filtration rate.predicted panel (S/P/Bld) 129 mL/min/1.73m??? Normal >=60 [facility] Comment on above: Order Comment: Margoth nuñez Type: BLOOD SPECIMENOrdering Facility: [facility] Address: [address] [place] [address] Result Comment: Honey mated Glomerular Filtration Rate [...] 2 4323-8 ####[facility] LABCLIA [id number] [place] [address] [place] Glucose [Mass/Vol] 100 mg/dL High 74-99 [facility] Comment on above: Order Comment: Margoth nuñez Type: BLOOD SPECIMENOrdering Facility: [facility] Address: [address] [place] [address] Result Comment: The [place] Diabetes Association (ADA) provides guidance for cutoff [...] Standards of Medical Care in Diabetes 2016, [place] Diabetes Association. Diabetes Care. 2016.39(Suppl 1). Performed By: #### 2 4323-8 ####[facility] LABCLIA [id number] [address] [address] [place] Potassium [Moles/Vol] 4.2 mmol/L Normal 3.7-5.1 [facility] Comment on above: Order Comment: Speci men Type: BLOOD SPECIMENOrdering Facility: [facility] Address: [address] [place] [address] Performed By: #### 2 4323-8 ####[facility] LABCLIA [id number] [address] [address] [place] Protein [Mass/Vol] 7.1 g/dL Normal 6.3-8.0 [facility] Comment on above: Order Comment: Speci men Type: BLOOD SPECIMENOrdering Facility: [facility] Address: [address] [place] [address] Performed By: #### 2 4323-8 ####[facility] LABCLIA [id number] [address] [address] [place] Sodium [Moles/Vol] 138 mmol/L Normal 136-144 [facility] Comment on above: Order Comment: Speci men Type: BLOOD SPECIMENOrdering Facility: [facility] Address: [address] [place] [address] Performed By: #### 2 4323-8 ####[facility] LABCLIA [id number] [address] [address] [place] Urea nitrogen [Mass/Vol] 13 mg/dL Normal 7-21 [facility] Comment on above: Order Comment: Speci men Type: BLOOD SPECIMENOrdering Facility: [facility] Address: [address] [place], [place] [address] Performed By: #### 2 4323-8 ####[facility] LABCLIA [id number] [place] [address] [facility] CNOVon 12-30-2024 CNOV Office Visit (ENWSTR ) ----- [place] ([id number]) 2000 F [facility] Date Time Provider Department 12/30/24 2:00 PM RUTHIE LUNA ENWSTR During your visit today, we recorded the following information about you: Temperature Pulse Blood pressure Weight 98.8 degrees 92/minute 118/62 82.8 kg Last Period 12/28/24 Ruthie Luna MD 12/31/2024 10:40 PM Signed [facility] Follow up note CONSULTING PROVIDER: Reagan Campos APRN. COST CONSULTANT (OBGYN) My final recommendations will be communicated [...] and Tri (more content not included)... Normal [facility] T3Free SerPl-mCncon 12-31-19 25 Free T3 [Mass/Vol] 3.1 pg/mL Normal 2.3-4.1 [facility] Comment on above: Order Comment: Speci men Type: BLOOD SPECIMENOrdering Facility: [facility] Address: [address] [place] [address] Performed By: #### 3 024-7, 3, ####[facility] LABCLIA [id number] [place] [address] [place] T4 Free SerPl-mCncon 025 Free T4 [Mass/Vol] 1.1 ng/dL Normal 0.9-1.7 [facility] Comment on above: Order Comment: Speci men Type: BLOOD SPECIMENOrdering Facility: [facility] Address: [address] [place] [address] Performed By: #### 3 024-7, 3015-12, 0 ####[facility] LABCLIA [id number] [place] [address] [place] TSH SerPl-aCncon 12-30-2024 TSH Qn 2.720 m[IU]/L Normal 0.270-4.200 [facility] Comment on above: Order Comment: Speci men Type: BLOOD SPECIMENOrdering Facility: [facility] Address: [address] [place] [address] Result Comment: If t he patient is , TSH reference range varies by gestational period: First Trimester (weeks 9-12): 0.180-2.990 mIU/L Second Trimester: 0.110-3.980 mIU/L Third Trimester: 0.480-4.710 mIU/L Sung Cordero et al. A Practical Approach for the Verifications and Determination of Site- and Trimester-Specific Reference Intervals for Thyroid Function tests in . Thyroid, 2019:29:3:412-420. Feng Velasco, et al. 2017 Guidelines of the [place] Thyroid Association for the Diagnosis and Management of Thyroid Disease during and the . Thyroid, 2017:27:3:315-389. Performed By: #### 3 024-7, 3016-3, 3051-0 ####[facility] LABCLIA [id number] SHERMANNevin [address]UR[address] [place] CNOVon 12-04-2024 CNOV Office Visit (UCWSTR ) ----- [place] ([id number]) 2000 [place] [facility] Date Time Provider Department 12/04/24 2:15 PM FELI WINSTON WS During your visit today, we recorded the following information about you: Temperature Pulse Respiration Blood pressure 99.5 degrees 108/minute 20/minute 116/82 Weight 81.8 kg Feli Winston APRN.COST CONSULTANT 12/04/2024 2:34 PM Signed This note was created using NoteWriter. Subjective Gosspeña Ny is a 24 year old female. [...] testing which patient declines. She will use [id number] cough and cold treatments as necessary. Patient given a note for work. Feli Winston APRN.LORI Referring Provider: SELF [200] Allergies As of Date: 12/04/2024 Noted Allergy Reaction AMOXICILLIN 11/24/2013 7 - Swelling LAVENDER (LAVANDULA ANGUSTIFOLIA) 03/12/2023 2 - Rash Date Reviewed: 12/04/2024 Reviewed by: Feli Winston APRN.COST CONSULTANT - Fully Assessed Reason for Visit: Cough [...] *04/04/2024 06/24/2024 (more content not included)... Normal [facility] CNOVon 11-22-2024 CNOV Office Visit (ENWSTR ) ----- [place] ([id number]) 2000 [place] [facility] Date Time Provider Department 11/22/24 8:00 AM RUTHIE LUNA During your visit today, we recorded the following information about you: Temperature Pulse Blood pressure Weight 98 degrees 88/minute 118/75 80.6 kg Ruthie Luna MD 11/24/2024 10:00 PM Signed [facility] Initial Clinic Visit Note CONSULTING PROVIDER: Reagan Campos APRN. COST CONSULTANT (OBGYN) My final recommendations will be communicated [...] nodules Kitty (more content not included)... Normal [facility] CNOVon 11-18-2024 CNOV Office Visit (UCWSTR ) ----- [place] ([id number]) 2000 [place] [facility] Date Time Provider Department 11/18/24 4:45 PM TYLER SALMON During your visit today, we recorded the following information about you: Temperature Pulse Respiration Blood pressure 98.1 degrees 91/minute 18/minute 111/78 Weight 81.4 kg Tyler Salmon APRN.COST CONSULTANT 11/18/2024 5:15 PM Signed Subjective HPI HPI [...] PROPIONATE 50 MCG/ACTUATION NASAL SPRAY,SUSPENSION Tyler Salmon APRN.COST CONSULTANT Allergies As of Date: 11/18/2024 Noted Allergy Reaction AMOXICILLIN 11/24/2013 7 - Swelling Date Reviewed: 11/18/2024 Reviewed by: Barb Chaney MA - Fully Assessed Reason for Visit: Diarrhea [35] Cmt: X last night, symptoms now cleared Primary Visit Diagnosis:Diarrhea, unspecified type [R19.7] Other Visit Diagnosis:Dysfuncti (more content not included)... Normal [facility] THYROID PEROXIDASE ANTIBODYo n 10-31-2024 TPO Ab Qn 4.2 [IU]/mL Normal <5.6 [facility] Comment on above: Order Comment: Speci men Type: BLOOD SPECIMENOrdering Facility: [facility] Address: [address] [place] [address] Result Comment: Thyr oid Peroxidase Antibody test is used as an aid in diagnosis of autoimmune thyroid disease. Clinical correlation is required. Performed By: #### M ICRO ####[facility] LABCLIA [id number] [facility] [id number] [facility] CNOVon 10-30-2024 CNOV Office Visit (UCTR ) ----- [place] ([id number]) 2000 [place] [facility] Date Time Provider Department 10/30/24 10:00 AM BINTA HATHAWAY [facility] During your visit today, we recorded the following information about you: Temperature Pulse Respiration Blood pressure 100.1 degrees 86/minute 20/minute 128/84 Weight Last Period 79 kg 10/23/24 Binta Hathaway APRN.COST CONSULTANT 10/30/2024 10:33 AM Signed This note was created using NoteWriter. Subjective Jackson Quick Yanely is a 24 year old female. 24 year old female with PMH GERD, ADHD, and bipolar presents for illness. 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 No sign language translator was used. Ear Pain This is a [...] Psychiatric/Behavioral: N (more content not included)... Normal [facility] [place] ([id number]) 2000 [place] [facility] Date Time Provider Department [...] get blood work drawn 10/31. Transferred to [facility] to schedule. Alyson Barksdale RN Allergies As of Date: 10/26/2024 Noted Allergy Reaction AMOXICILLIN 11/24/2013 7 - Swelling Date Reviewed: 10/25/2024 Reviewed by: Nohelia Oconnor MA - Fully Assessed Reason for Visit: Results [95] Primary Visit Diagnosis:Elevated TSH [R79.89] Order(s):T4 FREE/FREE THYROXINE [SQFT4] Order #: [id number] FUTURE THYROID PEROXIDASE ANTIBODY [SQMICRO] Order #: [id number] FUTURE CONSULT TO ENDOCRINOLOGY [9007] Order #: [id number]: 1 FUTURE Prescriptions as of 10/27/2024 - [...] Status:Closed by ALYSON BARKSDALE on 10/27/24 Normal [facility] CBC W Auto Differential pane l (Bld)on 10-25-2024 Basophils (Bld) [#/Vol] 0.06 10*3/uL [facility] Basophils/100 WBC (Bld) 0.7 % [facility] Differential cell count method Nom (Bld) Auto [facility] Eosinophils (Bld) [#/Vol] 0.14 10*3/uL [facility] Eosinophils/100 WBC (Bld) 1.6 % [facility] Erythrocyte distribution width (RBC) [Ratio] 12.1 % 11.5 - 15.0 % [facility] Hematocrit (Bld) [Volume fraction] 37.9 % 36.0 - 46.0 % [facility] Hemoglobin (Bld) [Mass/Vol] 12.4 g/dL 11.5 - 15.5 g/dL [facility] Immature granulocytes (Bld) [#/Vol] [facility] Immature granulocytes/100 WBC (Bld) 0.2 % [facility] Lymphocytes (Bld) [#/Vol] 1.76 10*3/uL [facility] Lymphocytes/100 WBC (Bld) 19.8 % [facility] MCH (RBC) [Entitic mass] 30.0 pg 26.0 - 34.0 pg [facility] MCHC (RBC) [Mass/Vol] 32.7 g/dL 30.5 - 36.0 g/dL [facility] MCV (RBC) [Entitic vol] 91.8 fL 80.0 - 100.0 fL [facility] Monocytes (Bld) [#/Vol] 0.61 10*3/uL [facility] Monocytes/100 WBC (Bld) 6.8 % [facility] Neutrophils (Bld) [#/Vol] 6.32 10*3/uL [facility] Neutrophils/100 WBC (Bld) 70.9 % [facility] Nucleated RBC (Bld) [#/Vol] [facility] Nucleated RBC/100 WBC (Bld) [Ratio] 0.0 % /100 WBC [facility] Platelet mean volume (Bld) [Entitic vol] 10.8 fL 9.0 - 12.7 fL [facility] Platelets (Bld) [#/Vol] 241 10*3/uL [facility] RBC (Bld) [#/Vol] 4.13 10*6/uL 3.90 - 5.2 0 m/uL [facility] WBC (Bld) [#/Vol] 8.91 10*3/uL [facility] Basophils (Bld) [#/Vol] 0.06 10*3/uL Normal <0.11 [facility] Comment on above: Order Comment: Speci men Type: BLOOD SPECIMENOrdering Facility: [facility] Address: [address] [place] [address] Performed By: #### 5 7021-8 ####[facility] MERARIWNCLIA [id number] [place] [address] [place] Basophils/100 WBC (Bld) 0.7 % Normal [facility] Comment on above: Order Comment: Speci men Type: BLOOD SPECIMENOrdering Facility: [facility] Address: [address] [place] [address] Performed By: #### 5 7021-8 ####[facility] [id number] [place] [address] [place] Differential cell count method Nom (Bld) Auto Normal [facility] Comment on above: Order Comment: Speci men Type: BLOOD SPECIMENOrdering Facility: [facility] Address: [address] [place] [address] Performed By: #### 5 7021-8 ####[facility] [id number] [place] [address] [place] Eosinophils (Bld) [#/Vol] 0.14 10*3/uL Normal <0.46 [facility] Comment on above: Order Comment: Speci men Type: BLOOD SPECIMENOrdering Facility: [facility] Address: [address] [place] [address] Performed By: #### 5 7021-8 ####[facility] [id number] [place] [address] [place] Eosinophils/100 WBC (Bld) 1.6 % Normal [facility] Comment on above: Order Comment: Speci men Type: BLOOD SPECIMENOrdering Facility: [facility] Address: [address] [place] [address] Performed By: #### 5 7021-8 ####[facility]ITAL[facility]CLIA [id number] [place] [address] [place] Erythrocyte distribution width (RBC) [Ratio] 12.1 % Normal 11.5-15.0 [facility] Comment on above: Order Comment: Speci men Type: BLOOD SPECIMENOrdering Facility: [facility] Address: [address] [place] [address] Performed By: #### 5 7021-8 ####[facility] [id number] [place] [address] [place] Hematocrit (Bld) [Volume fraction] 37.9 % Normal 36.0-46.0 [facility] Comment on above: Order Comment: Speci men Type: BLOOD SPECIMENOrdering Facility: [facility] Address: [address] [place] [address] Performed By: #### 5 7021-8 ####[facility] [id number] [place] [address] [place] Hemoglobin (Bld) [Mass/Vol] 12.4 g/dL Normal 11.5-15.5 [facility] Comment on above: Order Comment: Speci men Type: BLOOD SPECIMENOrdering Facility: [facility] Address: [address] [place] [address] Performed By: #### 5 7021-8 ####[facility] HOSPITALLIA [id number] [place] [address] [place] Immature granulocytes (Bld) [#/Vol] 10*3/uL Normal <0.10 [facility] Comment on above: Order Comment: Speci men Type: BLOOD SPECIMENOrdering Facility: [facility] Address: [address] [place] [address] Performed By: #### 5 7021-8 ####[facility] HOSPITALNCLI [id number] [place] [address] [place] Immature granulocytes/100 WBC (Bld) 0.2 % Normal [facility] Comment on above: Order Comment: Speci men Type: BLOOD SPECIMENOrdering Facility: [facility] Address: [address] [place] [address] Performed By: #### 5 7021-8 ####[facility] HOSPITALCONSUELOA [id number] [place] [address] [place] Lymphocytes (Bld) [#/Vol] 1.76 10*3/uL Normal 1.00-4.00 [facility] Comment on above: Order Comment: Speci men Type: BLOOD SPECIMENOrdering Facility: [facility] Address: [address] [place] [address] Performed By: #### 5 7021-8 ####[facility] HOSPITALGARRETTBEAVER VALLEY [facility]ITAL [id number] [place] [address] [place] Lymphocytes/100 WBC (Bld) 19.8 % Normal [facility] Comment on above: Order Comment: Speci men Type: BLOOD SPECIMENOrdering Facility: [facility] Address: [address] [place] [address] Performed By: #### 5 7021-8 ####[facility] HOSPITALMARIA R [id number] [place] [address] [place] MCH (RBC) [Entitic mass] 30.0 pg Normal 26.0-34.0 [facility] Comment on above: Order Comment: Speci men Type: BLOOD SPECIMENOrdering Facility: [facility] Address: [address] [place] [address] Performed By: #### 5 7021-8 ####[facility] HOSPITALNCLIA [id number] [place] [address] [place] MCHC (RBC) [Mass/Vol] 32.7 g/dL Normal 30.5-36.0 [facility] Comment on above: Order Comment: Speci men Type: BLOOD SPECIMENOrdering Facility: [facility] Address: [address] [place] [address] Performed By: #### 5 7021-8 ####[facility] MERARIWNCLIA [id number] [place] [address] [place] MCV (RBC) [Entitic vol] 91.8 fL Normal 80.0-100.0 [facility] Comment on above: Order Comment: Speci men Type: BLOOD SPECIMENOrdering Facility: [facility] Address: [address] [place] [address] Performed By: #### 5 7021-8 ####[facility]ALLIA [id number] [place] [address] [place] Monocytes (Bld) [#/Vol] 0.61 10*3/uL Normal <0.87 [facility] Comment on above: Order Comment: Speci men Type: BLOOD SPECIMENOrdering Facility: [facility] Address: [address] [place] [address] Performed By: #### 5 7021-8 ####[facility] COLL[facility] BOULEVARDA [id number] [place] [address] [place] Monocytes/100 WBC (Bld) 6.8 % Normal [facility] Comment on above: Order Comment: Speci men Type: BLOOD SPECIMENOrdering Facility: [facility] Address: [address] [place] [address] Performed By: #### 5 7021-8 ####[facility]ITALLIA [id number] [place] [address] [place] Neutrophils (Bld) [#/Vol] 6.32 10*3/uL Normal 1.45-7.50 [facility] Comment on above: Order Comment: Speci men Type: BLOOD SPECIMENOrdering Facility: [facility] Address: [address] [place] [address] Performed By: #### 5 7021-8 ####[facility]ITALNCLIA [id number] [place] [address] [place] Neutrophils/100 WBC (Bld) 70.9 % Normal [facility] Comment on above: Order Comment: Speci men Type: BLOOD SPECIMENOrdering Facility: [facility] Address: [address] [place] [address] Performed By: #### 5 7021-8 ####[facility]ITALNCBEAVER VALLEY [facility] [id number] [place] [address] [place] Nucleated RBC (Bld) [#/Vol] 10*3/uL Normal <0.01 [facility] Comment on above: Order Comment: Speci men Type: BLOOD SPECIMENOrdering Facility: [facility] Address: [address] [place] [address] Performed By: #### 5 7021-8 ####[facility]ITALNCBEAVER VAL[facility] [id number] [place] [address] [place] Nucleated RBC/100 WBC (Bld) [Ratio] 0.0 /100 WBC Normal [facility] Comment on above: Order Comment: Speci men Type: BLOOD SPECIMENOrdering Facility: [facility] Address: [address] [place] [address] Performed By: #### 5 7021-8 ####[facility]ITALNCBEAV[facility] [id number] [place] [address] [place] Platelet mean volume (Bld) [Entitic vol] 10.8 fL Normal 9.0-12.7 [facility] Comment on above: Order Comment: Speci men Type: BLOOD SPECIMENOrdering Facility: [facility] Address: [address] [place] [address] Performed By: #### 5 7021-8 ####[facility] [id number] [place] [address] [place] Platelets (Bld) [#/Vol] 241 10*3/uL Normal 150-400 [facility] Comment on above: Order Comment: Speci men Type: BLOOD SPECIMENOrdering Facility: [facility] Address: [address] [place] [address] Performed By: #### 5 7021-8 ####[facility]ITALNCLIA [id number] [place] [address] [place] RBC (Bld) [#/Vol] 4.13 10*6/uL Normal 3.90-5.20 [facility] Comment on above: Order Comment: Speci men Type: BLOOD SPECIMENOrdering Facility: [facility] Address: [address] [place] [address] Performed By: #### 5 7021-8 ####[facility]ITALNCLIA [id number] [place] [address] [place] WBC (Bld) [#/Vol] 8.91 10*3/uL Normal 3.70-11.00 [facility] Comment on above: Order Comment: Speci men Type: BLOOD SPECIMENOrdering Facility: [facility] Address: [address] [place] [address] Performed By: #### 5 7021-8 ####[facility]ITALNCLIA [id number] [place] [address] [place] CNOVon 10-25-2024 CNOV Office Visit (OBGYWM ) ----- [place] ([id number]) 2000 [place] Date Time Provider Department 10/25/24 11:30 AM BINTA CARCAMO During your visit today, we recorded the following information about you: Blood pressure Weight Last Period 100/60 80.3 kg 10/08/24 Binta Carcamo APRN.NOE 10/25/2024 2:50 PM Signed Chief Deputy Clerk/Bailiff offered: Patient declines. 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 As applicable, any other physician, advance practice provider, medical student, or other health professional student that will be observing or involved in the sensitive examination for educational or training purposes was discussed with the Patient or Authorized Infertility Medical Assistant. The Patient or Authorized Infertility Medical Assistant has agreed to proceed with the sensitive [...] mechanism of (more content not included)... Normal [facility] T4 Free SerPl-mCncon 025 Free T4 [Mass/Vol] 0.5 ng/dL Low 0.9-1.7 [facility] Comment on above: Order Comment: Speci men Type: BLOOD SPECIMENOrdering Facility: [facility] Address: [address] [place] [address] Performed By: #### 3 016-3, 3024-7 ####[facility] LABIA [id number] [place] [address] [place] TSH SerPl-aCncon 10-25-2024 TSH Qn 23.060 m[IU]/L High 0.270-4.200 [facility] Comment on above: Order Comment: Speci men Type: BLOOD SPECIMENOrdering Facility: [facility] Address: [address] [place] [address] Result Comment: If t he patient is , TSH reference range varies by gestational period: First Trimester (weeks 9-12): 0.180-2.990 mIU/L Second Trimester: 0.110-3.980 mIU/L Third Trimester: 0.480-4.710 mIU/L Sung Cordero et al. A Practical Approach for the Verifications and Determination of Site- and Trimester-Specific Reference Intervals for Thyroid Function tests in . Thyroid, 2019:29:3:412-420. Feng E, et al. 2017 Guidelines of the [place] Thyroid Association for the Diagnosis and Management of Thyroid Disease during and the . Thyroid, 2017:27:3:315-389. Performed By: #### 3 016-3, 3024-7 ####[facility] LABIA [id number] [place] [id number] [place] CNPLissett 09-27-2024 CNPN Telephone (OBGYWM) ----- [place] ([id number]) 2000 F [place] Date Time Provider Department 09/27/24 URBAN BURNETT OBGYWYuki During your visit today, we recorded the following information about you: Maddison Moreno LPN 09/27/2024 9:01 AM Signed Patient called stating [...] URBAN BURNETT Pharmacy Information Pharmacy Address Telephone [facility] [phone] [place] [phone] Allergies As of Date: 09/27/2024 Noted Allergy Reaction AMOXICILLIN 11/24/2013 7 - Swelling Date Reviewed: 09/13/2024 Reviewed by: Nohelia Oconnor MA - Fully Assessed Reason for Visit: Results [95] Primary Visit Diagnosis:Trichomoniasis [A59.9] Order(s):[employer] TREATMENT [1004808] Order #: [id number]: 1 metroNIDAZOLE (FLAGYL) 500 mg tabletTake 1 [...] 10/22/2023 06/24/2024 (more content not included)... Normal [facility] BACTERIAL VAGINOSIS NAATon 1 11-14-2023 Lactobacillus crispatus+gasseri+pierre senii + Gardnerella vaginalis + Atopobium vaginae rRNA JOSE+probe Ql (Vag fld) Not detected Normal Not detected [facility] Comment on above: Order Comment: Speci men Type: SWABOrdering Facility: [facility] Address: [address] [place] [address] Performed By: #### 3 6902-5, BVAMP ####[facility] LABCLIA [id number] [place] [address] [place] C. trachomatis+N. gonorrhoea e DNA JOSE+probe Ql (Unsp spec)on 09-13-2024 C. trachomatis rRNA JOSE+probe Ql (Unsp spec) Not detected Normal Not detected [facility] Comment on above: Order Comment: Speci men Type: SWABOrdering Facility: [facility] Address: [address] [place] [address] Performed By: #### 3 6902-5, BVAMP ####[facility] LABCLIA [id number] [place] [address] [place] N. gonorrhoeae rRNA JOSE+probe Ql (Unsp spec) Not detected Normal Not detected [facility] Comment on above: Order Comment: Speci men Type: SWABOrdering Facility: [facility] Address: [address] [place] [address] Performed By: #### 3 6902-5, BVAMP ####[facility] LABIA [id number] [place] [address] [place] DAX/TRICHOMONAS NAATon 1 11-14-2023 C. glabrata RNA JOSE+probe Ql (Vag fld) Not detected Normal Not detected [facility] Comment on above: Order Comment: Speci men Type: SWABOrdering Facility: [facility] Address: [address] [place] [address] Performed By: #### C VTV ####[facility], INCIA [id number] [place] [address] [place] [facility] OF EDI Dax sp DNA JOSE+probe Ql (Vag fld) Not detected Normal Not detected [facility] Comment on above: Order Comment: Speci men Type: SWABOrdering Facility: [facility] Address: [address] [place] [address] Result Comment: The Dax species group target includes C. albicans, C. tropicalis, C. parapsilosis, and C. dubliniensis. Performed By: #### C VTV ####[facility] [id number] [place] [address] [place] T. vaginalis DNA JOSE+probe Ql (Unsp spec) Not detected Normal Not detected [facility] Comment on above: Order Comment: Speci men Type: SWABOrdering Facility: [facility] Address: [address] [place] [address] Performed By: #### C VTV ####[facility] [id number] [place] [address] [place] CNOVon 09-13-2024 CNOV Office Visit (OBGYWM ) ----- [id number][place] 2000 F [place] Date Time Provider Department 09/13/24 1:40 PM KARINA KWONG During your visit today, we recorded the following information about you: Blood pressure Weight 118/76 77.5 kg Karina Kwong MD 09/13/2024 2:20 PM Signed Chief Deputy Clerk/Bailiff offered: Patient declines. Has not been with [...] discussed with the Patient or Patient's Authorized Infertility Medical Assistant. As applicable, any other physician, advance practice provider, medical student, or other health professional student that will be observing or involved in the sensitive examination for educational or training purposes was discussed with the Patient or Authorized Infertility Medical Assistant. The Patient or Authorized Infertility Medical Assistant has agreed to proceed with the sensitive examination. (Sensitive examination includes inspection and/or palpation of the breasts, pelvis, prostate and anorectal regions). BP 118/76 Wt 170 lb 12.8 oz (77.5kg) LMP 08/21/2023 GENERAL: Well developed, well nourished in no apparent distress ABDOMEN: soft, non-tender, and no masses PELVIC: external genitalia normal, normal Bartholin's glands, urethra, [place]'s glands, no vulvar lesions, no cervical lesions, [...] EPT. Will call with his information MD Elvin Kruger Reanna, MA 09/13/2024 1:35 PM Signed [...] [N89.8] Order(s):GONORRHEA/CHLAMY MARK NAAT [SQGCCT] Order #: [id number]. #:[id number] BACTERIAL VAGINOSIS NAAT [SQBVAMP] Order #: [id number]. #:[id number] DAX/TRICHOMONAS NAAT [SQCVTV] Order #: [id number]. #:[id number] Prescriptions as of 09/13/2024 - etonogestrel (NEXPLANON) 68 mg impl subdermal implant 68 mg by SUBDERMAL route one time only. Problem List As Of Date 09/13/2024 Noted Resolved ADHD (attention deficit hyperactivity disorder)*06/02/2014 Acute hepatitis [B17.9] 01/11/2021 Bipolar disorder (HCC) [F31.9] 06/03/2018 History of drug abuse (HCC) [F19.11] 01/11/2021 06/24/2024 (more content not included)... Normal [facility] 09-07-2024 LROIN Telephone (OBGYWM) ----- [place] ([id number]) 2000 F [place] Date Time Provider Department 09/07/24 REAGAN CAMPOS During your visit today, we recorded the following information about you: Alyson Barksdale RN 09/07/2024 3:10 PM Signed Patient calling c/o HSV outbreak. Has one painful lesion. Asking if she needs appt or if she can get rx for medication without being seen? Pharmacy correct. AUDRA Winters Emily, APRN.COST CONSULTANT 09/07/2024 3:43 PM Signed Will start episodic [...] Date Reviewed: 08/29/2024 Reviewed by: Reagan Campos APRN.COST CONSULTANT - Fully Assessed Reason for Visit: HSV [...] Encounter Status:Closed by KARINA MANNING on 09/07/24 [facility] Kendra 09-02-2024 JASNO Telephone (OBGYWM) ----- [place] ([id number]) 2000 F [place] Date Time Provider Department [...] a medication be prescribed? AUDRA Mcallister Emily, APRN.COST CONSULTANT 09/02/2024 10:32 AM Signed She can breastfeed while taking Flagyl. Recommend slowly weaning pumping/. Cool compresses and tight bra. Can trial Sudafed. Reagan Campos APRN.Ruben Alvarez RN 09/02/2024 10:40 AM Signed Pt notified and voiced understanding. Ruben Vilchis RN Allergies As of Date: 09/02/2024 Noted Allergy Reaction AMOXICILLIN 11/24/2013 7 - Swelling Date Reviewed: 08/29/2024 Reviewed by: Reagan Campos APRN.COST CONSULTANT - Fully Assessed Reason for Visit: Patient Question [5607] Prescriptions as of 09/02/2024 - metroNIDAZOLE (FLAGYL) [...] Encounter Status:Closed by RUBEN VILCHIS on 09/02/24 [facility] JASON Telephone (OBGYWM) ----- [place] ([id number]) 2000 F [place] Date Time Provider Department 08/30/24 URBAN BURNETT OBGYWM During your visit today, we recorded the following information about you: Ruben Vilchis RN 08/30/2024 10:36 AM Signed Pt states she saw lab results from 08/28/24 on Mychart and wanting to know what treatment consists of. Advised her message would be sent to provider medical care evaluation specialist as is out of office today. Please advise in EH absence. AUDRA Simmons Renee, APRN.COST CONSULTANT 08/30/2024 2:19 PM Signed BV positive. To [...] back in office tomorrow. AUDRA Winters Emily, APRN.LORI 2024 7:38 AM Signed Culture was negative, [...] Date Reviewed: 08/29/2024 Reviewed by: Reagan Campos APRN.COST CONSULTANT - Fully Assessed Reason for Visit: Results [...] Status:Closed by RUBEN VILCHIS on 09/01/24 Normal [facility] BACTERIAL VAGINOSIS NAATon 1 10-29-2023 Lactobacillus crispatus+gasseri+pierre senii + Gardnerella vaginalis + Atopobium vaginae rRNA JOSE+probe Ql (Vag fld) Negative Normal Negative for bacterial vaginosis [facility] Comment on above: Order Comment: Speci men Type: SWABOrdering Facility: [facility] Address: [address] [place] [address] Performed By: #### Hay ALMANZA, 21587-8 ####[facility] LABCLIA [id number] [facility]ENTERDESK [place] [address] [place] C. trachomatis+N. gonorrhoea e DNA JOSE+probe Ql (Unsp spec)on 08-29-2024 C. trachomatis rRNA JOSE+probe Ql (Unsp spec) Negative Normal Negative for Chlamydia trachomatis by amplificaton [facility] Comment on above: Order Comment: Speci men Type: SWABOrdering Facility: [facility] Address: [address] [place] [address] Performed By: #### B VAMP, 80322-0 ####[facility] LABCLIA [id number] [place] [address] [place] N. gonorrhoeae rRNA JOSE+probe Ql (Unsp spec) Negative Normal Negative for Neisseria gonorrhoeae by amplification [facility] Comment on above: Order Comment: Speci men Type: SWABOrdering Facility: [facility] Address: [address] [place] [address] Performed By: #### B VAMP, 68051-2 ####[facility] LABCLIA [id number] [place] [address] [place] DAX/TRICHOMONAS NAATon 1 10-29-2023 C. glabrata RNA JOSE+probe Ql (Vag fld) Negative Normal Negative for Dax glabrata [facility] Comment on above: Order Comment: Speci men Type: SWABOrdering Facility: [facility] Address: [address] [place] [address] Performed By: #### C VTV ####[facility] LABCLIA [id number] [place] [address] [place] Dax sp DNA JOSE+probe Ql (Vag fld) Negative Normal Negative for Dax species [facility] Comment on above: Order Comment: Speci men Type: SWABOrdering Facility: [facility] Address: [address] [place] [address] Performed By: #### C VTV ####[facility] LABCLIA [id number] [place] [address] [place] T. vaginalis DNA JOSE+probe Ql (Unsp spec) Positive Abnormal Negative for Trichomonas vaginalis by amplification [facility] Comment on above: Order Comment: Speci men Type: SWABOrdering Facility: [facility] Address: [address] [place] [address] Performed By: #### C VTV ####[facility] LABCLIA [id number] [place] [id number] [place] CNOVon 08-29-2024 CNOV Office Visit (OBGYWM ) ----- [place] ([id number]) 2000 F [place] Date Time Provider Department 08/29/24 2:45 PM REAGAN CAMPOS OBGYWM During your visit today, we recorded the following information about you: Blood pressure Weight 102/60 77.2 kg Reagan Campos APRN.COST CONSULTANT 08/29/2024 3:08 PM Signed Chief Deputy Clerk/Bailiff offered: Patient declines. 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 As applicable, any other physician, advance practice provider, medical student, or other health professional student that will be observing or involved in the sensitive examination for educational or training purposes was discussed with the Patient or Authorized Infertility Medical Assistant. The Patient or Authorized Infertility Medical Assistant has agreed to proceed with the sensitive [...] urethra, superior labia minora/vestibule normal [place]tholin's glands, [place]'s glands, no vulvar lesions, no cervical lesions, [...] genital herpes To treat accordingly. Reagan Campos, TAVO. (more content not included)... Normal [facility] HBV surface Ag Ql (S)on 08-12 Interpretation and review of laboratory results Normal [facility] HBV surface Ag Ser Qlon 08-12 HBV surface Ag Ql (S) Negative Normal Negative [facility] Comment on above: Order Comment: Speci men Type: BLOOD SPECIMENOrdering Facility: [facility] Address: [address] [place] [address] Performed By: #### 7 3752-8, 5195-3, 59444-4 ####[facility] LABCLIA [id number] [place] [address] [place] HCV Ab Ql (S)on 08-29-2024 Interpretation and review of laboratory results Normal [facility] HCV Ab Ser Qlon 08-29-2024 HCV Ab Ql (S) Negative Normal Negative [facility] Comment on above: Order Comment: Speci men Type: BLOOD SPECIMENOrdering Facility: [facility] Address: [address] [place] [address] Result Comment: The result suggests no evidence of active infection with Hepatitis C virus. Should recent infection be suspected, repeat testing may be considered 4-6 weeks after this draw. Performed By: #### 1 6128-1 ####[facility] LABCLIA [id number] [place] [address] [place] HEPATITIS B SURFACE ANTIGENo n 08-29-2024 HBV surface Ag Ql (S) Negative Negative [facility] HEPATITIS C ANTIBODY IA WITH CONFIRMATIONon 08-29-2024 HCV Ab Ql (S) Negative Negative [facility] Comment on above: The result suggests no evidence of active infection with Hepatitis C virus. Should recent infection be suspected, repeat testing may be considered 4-6 weeks after this draw. HERPES SIMPLEX IGM, WITH REF MICHAEL IGG ABSon 08-29-2024 HSV IGG 1 QUALITATIVE Positive Abnormal Negative [facility] Comment on above: Order Comment: Speci men Type: BLOOD SPECIMENOrdering Facility: [facility] Address: [address] [place] [address] Performed By: #### H SVGM ####[facility] LABCLIA [id number] [place] [address] [place] HSV IGG 2 QUALITATIVE Positive Abnormal Negative [facility] Comment on above: Order Comment: Rasheedai joaquin Type: BLOOD SPECIMENOrdering Facility: [facility] Address: [address] [place] [address] Performed By: #### H SVGM ####[facility] LABCLIA [id number] [place] [address] [place] HSV IGM QUALITATIVE Positive Abnormal Negative [facility] Comment on above: Order Comment: Rasheedai men Type: BLOOD SPECIMENOrdering Facility: [facility] Address: [address] [place] [address] Performed By: #### H SVGM ####[facility] LABCLIA [id number] [place] [address] [place] HSV SEROLOGICAL INTERPRETATION Normal [facility] Comment on above: Order Comment: Speci men Type: BLOOD SPECIMENOrdering Facility: [facility] Address: [address] [place] [address] Result Comment: In t he presence of typical herpes simplex lesion(s), these results suggest one of the following: recent primary HSV-1 or HSV-2 infection, or either of HSV-1 and HSV-2 reinfection, or either of HSV-1 and HSV-2 reactivation. False positive HSV IgM results are common. HSV PCR is strongly recommended, if feasible. Performed By: #### H SV ####[facility] LABCLIA [id number] [place] [address] [place] HIV 1+2 Ab IA Qlon 4 HIV 1 and 2 Ab IA.rapid Nom (S/P/Bld) [facility] Comment on above: Test not indicated. HIV 1+2 Ab+HIV1 p24 Ag IA Ql Non-Reactive Nonreactive [facility] HIV immunoassay testing algorithm interpretation (S/P/Bld) [Interp] [facility] Comment on above: No evidence of HIV-1 or HIV-2 infection. Should recent infection be suspected, repeat testing may be considered 2-3 weeks after this draw. Titus Rev. Code 3701.243(E): This information has been [...] release of HIV test results or diagnoses. [facility] HIV 1 and 2 Ab IA.rapid Nom (S/P/Bld) Normal [facility] Comment on above: Order Comment: Speci men Type: BLOOD SPECIMENOrdering Facility: [facility] Address: [address] [place] [address] Result Comment: Test not indicated. Performed By: #### 7 3752-8, 5195-3, 56247-5 ####[facility] LABCLIA [id number] [place] [address] [place] HIV 1+2 Ab+HIV1 p24 Ag IA Ql Non-Reactive Normal Nonreactive [facility] Comment on above: Order Comment: Speci men Type: BLOOD SPECIMENOrdering Facility: [facility] Address: [address] [place] [address] Performed By: #### 7 3752-8, 5195-3, 57946-3 ####[facility] LABCLIA [id number] [place] [address] [place] HIV immunoassay testing algorithm interpretation (S/P/Bld) [Interp] Normal [facility] Comment on above: Order Comment: Speci men Type: BLOOD SPECIMENOrdering Facility: [facility] Address: [address] [place] [address] Result Comment: No e vidence of HIV-1 or HIV-2 infection. Should recent infection be suspected, repeat testing may be considered 2-3 weeks after this draw. Titus Rev. Code 3701.243(E): This information has been [...] diagnoses. Performed By: #### 7 3752-8, 5195-3, 10324-4 ####[facility] LABCLIA [id number] [place] [address] [place] HSV+VZV DNA JOSE+probe Ql (Un sp spec)on 08-29-2024 HSV 1 DNA JOSE+probe Ql (Unsp spec) Not detected Normal Not Detected [facility] Comment on above: Order Comment: Speci men Type: SWABOrdering Facility: [facility] Address: [address] [place] [address] Performed By: #### 3 3027-4 ####[facility] LABCLIA [id number] [place] [address] [place] HSV 2 DNA JOSE+probe Ql (Unsp spec) Not detected Normal Not Detected [facility] Comment on above: Order Comment: Speci men Type: SWABOrdering Facility: [facility] Address: [address] [place] [address] Performed By: #### 3 3027-4 ####[facility] LABCLIA [id number] [place] [address] [place] VZV DNA JOSE+probe Ql (Unsp spec) Not detected Normal Not Detected [facility] Comment on above: Order Comment: Speci men Type: SWABOrdering Facility: [facility] Address: [address] [place] [address] Performed By: #### 3 3027-4 ####[facility] LABCLIA [id number] [place] [address] [place] Reagin and Treponema pallidu m IgG and IgM [Interp]on 08-29-2024 T. pallidum IgG+IgM IA Ql (S) Non-Reactive Nonreactive [facility] T. pallidum IgG+IgM IA Ql (S) Non-Reactive Normal Nonreactive [facility] Comment on above: Order Comment: Speci men Type: BLOOD SPECIMENOrdering Facility: [facility] Address: [address] [place] [address] Performed By: #### 7 3752-8, 5195-3, 10192-9 ####[facility] LABCLIA [id number] [place] [address] [place] Reagin+T pallidum IgG+IgM Se rPl-Impon 08-29-2024 Reagin and Treponema pallidum IgG and IgM [Interp] Cannot exclude recent Treponemal infection if specimen collected within 7-10 days after appearance of suspect lesions or 2-3 weeks after an exposure. Clinical correlation is required. Normal [facility] Comment on above: Order Comment: Speci men Type: BLOOD SPECIMENOrdering Facility: [facility] Address: [address] [place] [address] Performed By: #### 7 3752-8, 5195-3, 63237-6 ####[facility] LABCLIA [id number] [place] [id number] [place] SYPHILIS TREPONEMAL W/REFLEX on 08-29-2024 Reagin and Treponema pallidum IgG and IgM [Interp] Cannot exclude recent Treponemal infection if specimen collected within 7-10 days after appearance of suspect lesions or 2-3 weeks after an exposure. Clinical correlation is required. [facility] UA DIP, URINE (POC)on 2023 BILIRUBIN UA (POCT) Negative Negative [facility] CLARITY UA (POCT) Clear [facility] COLOR UA (POCT) Yellow [facility] GLUCOSE UA (POCT) Negative Negative mg/dL [facility] Hemoglobin Ql (U) Trace-intact Abnormal Negative [facility] Interpretation and review of laboratory results Abnormal [facility] KETONE UA (POCT) Negative Negative mg/dL [facility] LEUKOCYTES UA (POCT) Trace Abnormal Negative [facility] NITRITE UA (POCT) Negative Negative [facility] PH UA (POCT) 6.0 4.5 - 8.0 [facility] Protein Ql (U) Negative Negative mg/dL [facility] SPECIFIC GRAVITY UA (POCT) 1.025 1.005 - 1.030 [facility] UROBILINOGEN UA (POCT) 0.2 Normal E.U./dL [facility] Location:[facility], [address], [place], [place], [id number] [place] [address] POINT OF CARE [facility] URINE OB DIP B/Oon Glucose Ql (U) Negative Neg mg/dL [facility] Interpretation and review of laboratory results Normal [facility] Protein.monoclonal (U) [Mass/Vol] Negative Neg mg/dL [facility] Examination level ultrasound on 04-29-2024 [facility] Radiology Study observation (narrative) [facility] URINE OB DIP B/OOrdered By: Harika Galindo on 04-29-2024 Glucose Ql (U) Negative Neg mg/dL [facility] Interpretation and review of laboratory results Normal [facility] Protein.monoclonal (U) [Mass/Vol] Negative Neg mg/dL [facility] CBC W Auto Differential pane l (Bld)on 04-19-2024 Basophils (Bld) [#/Vol] 0.03 10*3/uL [facility] Basophils/100 WBC (Bld) 0.3 % [facility] Differential cell count method Nom (Bld) Auto [facility] Eosinophils (Bld) [#/Vol] 0.12 10*3/uL [facility] Eosinophils/100 WBC (Bld) 1.1 % [facility] Erythrocyte distribution width (RBC) [Ratio] 12.7 % 11.5 - 15.0 % [facility] Hematocrit (Bld) [Volume fraction] 33.3 % Low 36.0 - 46.0 % [facility] Hemoglobin (Bld) [Mass/Vol] 11.2 g/dL Low 11.5 - 15.5 g/dL [facility] Immature granulocytes (Bld) [#/Vol] 0.09 10*3/uL [facility] Immature granulocytes/100 WBC (Bld) 0.8 % [facility] Interpretation and review of laboratory results Abnormal [facility] Lymphocytes (Bld) [#/Vol] 1.93 10*3/uL [facility] Lymphocytes/100 WBC (Bld) 17.7 % [facility] MCH (RBC) [Entitic mass] 30.9 pg 26.0 - 34.0 pg [facility] MCHC (RBC) [Mass/Vol] 33.6 g/dL 30.5 - 36.0 g/dL [facility] MCV (RBC) [Entitic vol] 91.7 fL 80.0 - 100.0 fL [facility] Monocytes (Bld) [#/Vol] 0.82 10*3/uL [facility] Monocytes/100 WBC (Bld) 7.5 % [facility] Neutrophils (Bld) [#/Vol] 7.91 10*3/uL High [facility] Neutrophils/100 WBC (Bld) 72.6 % [facility] Nucleated RBC (Bld) [#/Vol] [facility] Nucleated RBC/100 WBC (Bld) [Ratio] 0.0 % /100 WBC [facility] Platelet mean volume (Bld) [Entitic vol] 10.8 fL 9.0 - 12.7 fL [facility] Platelets (Bld) [#/Vol] 167 10*3/uL [facility] RBC (Bld) [#/Vol] 3.63 10*6/uL Low 3.90 - 5.2 0 m/uL [facility] WBC (Bld) [#/Vol] 10.90 10*3/uL [facility] Comprehensive metabolic 2000 panelOrdered By: Flaquita Yoon on 04-19-2024 Albumin [Mass/Vol] 3.5 g/dL Low 3.9 - 4.9 g/dL Cl [facility] ALP [Catalytic activity/Vol] 98 U/L 34 - 123 U/L [facility] ALT [Catalytic activity/Vol] 10 U/L 7 - 38 U/L [facility] Anion gap [Moles/Vol] 9 mmol/L 8 - 15 mmol/L [facility] AST [Catalytic activity/Vol] 14 U/L 13 - 35 U/L [facility] Bilirubin [Mass/Vol] mg/dL Low 0.2 - 1 .3 mg/dL [facility] Calcium [Mass/Vol] 9.4 mg/dL 8.5 - 10. 2 mg/dL [facility] Chloride [Moles/Vol] 105 mmol/L 98 - 10 7 mmol/L [facility] CO2 [Moles/Vol] 25 mmol/L 22 - 30 mmol/L [facility] Creatinine [Mass/Vol] 0.42 mg/dL Low 0.58 - 0.96 mg/dL [facility] GFR/1.73 sq M.predicted among non-blacks MDRD (S/P/Bld) [Vol rate/Area] 139 mL/min/{1.73_m2} - PINF [facility] Comment on above: Estimated Glomerular Filtration Rate [...] 124 mg/dL High 74 - 99 mg/dL [facility] Comment on above: The [place] Diab[employer] s Association (ADA) provides guidance for [...] Standards of Medical Care in Diabetes 2016, [place] [employer]. Diabetes Care. 2016.39(Suppl 1). Interpretation and review of laboratory results Abnormal [facility] Potassium [Moles/Vol] 2.7 mmol/L Low 3.7 - 5.1 mmol/L [facility] Protein [Mass/Vol] 6.0 g/dL Low 6.3 - 8.0 g/dL [facility] Sodium [Moles/Vol] 139 mmol/L 136 - 144 mmol/L [facility] Urea nitrogen [Mass/Vol] 6 mg/dL Low 7 - 21 mg/dL [facility] No Panel InformationOrdered By: Flaquita Yoon on 04-19-2024 [facility] URIC ACIDon 04-19-2024 Urate [Mass/Vol] 3.6 mg/dL 2.5 - 6.6 mg/dL [facility] URINE OB DIP B/Oon Glucose Ql (U) Negative Neg mg/dL [facility] Interpretation and review of laboratory results Normal [facility] Protein.monoclonal (U) [Mass/Vol] Negative Neg mg/dL [facility] Urate [Mass/Vol]on Interpretation and review of laboratory results Normal [facility] Examination level ultrasound on 04-01-2024 [facility] Radiology Study observation (narrative) [facility] BACTERIAL VAGINOSIS NAATon 0 02-18-2024 Interpretation and review of laboratory results Normal [facility] Lactobacillus crispatus+gasseri+pierre senii + Gardnerella vaginalis + Atopobium vaginae rRNA JOSE+probe Ql (Vag fld) Negative Negative for bacterial vaginosis [facility] C. trachomatis+N. gonorrhoea e DNA JOSE+probe Ql (Unsp spec)on 02-18-2024 C. trachomatis rRNA JOSE+probe Ql (Unsp spec) Negative Negative for Chlamydia trachomatis by amplificaton [facility] Interpretation and review of laboratory results Normal [facility] N. gonorrhoeae rRNA JOSE+probe Ql (Unsp spec) Negative Negative for Neisseria gonorrhoeae by amplification [facility] DAX/TRICHOMONAS NAATon 0 02-18-2024 C. glabrata RNA JOSE+probe Ql (Vag fld) Negative Negative for Dax glabrata [facility] Dax sp DNA JOSE+probe Ql (Vag fld) Negative Negative for Dax species [facility] Interpretation and review of laboratory results Normal [facility] T. vaginalis DNA JOSE+probe Ql (Unsp spec) Negative Negative for Trichomonas vaginalis by amplification [facility] Microscopic observation Gram stain Nom (Vag fld)Ordered By: Melissa Siddiqi on 02-03-2024 Bacterial Vaginosis BACTERIAL VAGINOSIS RESULT: Stain results consistent with normal vaginal odalys. [facility] Bacterial Vaginosis No Yeast observed [facility] Bacterial Vaginosis No Polymorphonuclear Leukocytes [facility] Examination level ultrasound on 01-05-2024 [facility] URINE OB DIP B/Oon 4 Glucose Ql (U) Negative Neg mg/dL [facility] Protein.monoclonal (U) [Mass/Vol] Negative Neg mg/dL [facility] URINE OB DIP B/Oon 4 Glucose Ql (U) Negative Neg mg/dL [facility] Protein.monoclonal (U) [Mass/Vol] Negative Neg mg/dL [facility] BACTERIAL VAGINOSIS NAATon 0 07-07-2023 Lactobacillus crispatus+gasseri+pierre senii + Gardnerella vaginalis + Atopobium vaginae rRNA JOSE+probe Ql (Vag fld) Negative Negative for bacterial vaginosis [facility] C. trachomatis+N. gonorrhoea e DNA JOSE+probe Ql (Unsp spec)on 07-07-2023 C. trachomatis rRNA JOSE+probe Ql (Unsp spec) Negative Negative for Chlamydia trachomatis by amplificaton [facility] N. gonorrhoeae rRNA JOSE+probe Ql (Unsp spec) Negative Negative for Neisseria gonorrhoeae by amplification [facility] DAX/TRICHOMONAS NAATon 0 07-07-2023 C. glabrata RNA JOSE+probe Ql (Vag fld) Negative Negative for Dax glabrata [facility] Dax sp DNA JOSE+probe Ql (Vag fld) Negative Negative for Dax species [facility] T. vaginalis DNA JOSE+probe Ql (Unsp spec) Negative Negative for Trichomonas vaginalis by amplification [facility] Absolute lymphocyte countOrd ered By: Dr. Draper on 03-12-2023 Lymphocytes Auto (Unsp spec) [#/Vol] 1.17 10*3/uL 0.83-4.51 [facility] Basophil percentageOrdered B y: Dr. Draper on 03-12-2023 Basophil percentage 25-50 SEEN /hpf 0-5 [facility] Basophils/100 WBC (Bld) 0.3 % 0-1 [facility] Bilirubin [Mass/Vol] 0.30 mg/dL 0.20-1.00 [facility] Comment on above: For patients on eltr ombopag therapy, use of [place] TBIL is not recommended. Chloride [Moles/Vol] 99 mmol/L 98-107 [facility] Eosinophils/100 WBC (Bld) 0.2 % 0-5 [facility] Glucose [Mass/Vol] 108 mg/dL 74-106 [facility] Comment on above: Fasting Glucose resu lt from 100 to 125 mg/dL suggests IMPAIRED HOMEOSTASIS per A.D.A. criteria. Neutrophils (Bld) [#/Vol] 9.6 10*3/uL 2.0-7.7 [facility] Neutrophils/100 WBC (Bld) 80.2 % 47-70 [facility] Potassium [Moles/Vol] 3.4 mmol/L 3.5-5.1 [facility] Protein [Mass/Vol] 8.0 g/dL 6.4-8.2 [facility] Sodium [Moles/Vol] 138 mmol/L 136-145 [facility] WBC (Bld) [#/Vol] 12.0 10*3/uL 4.4-11.0 [facility] Bilirubin Test strip Ql (U)O rdered By: Dr. Draper on 03-12-2023 Bilirubin Ql (U) Negative Negative [facility] Blood erythrocytes count (nu mber/volume)Ordered By: Dr. Draper on 03-12-2023 RBC (Bld) [#/Vol] 4.21 10*6/uL 4.2-5.4 [facility] Blood hemoglobin measurement (mass/volume)Ordered By: Dr. Draper on 03-12-2023 Hemoglobin (Bld) [Mass/Vol] 12.6 g/dL 12.0-15.0 [facility] Blood lymphocytes/100 leukoc ytesOrdered By: Dr. Draper on 03-12-2023 Lymphocytes/100 WBC (Bld) 9.8 % 19-41 [facility] Blood monocytes/100 leukocyt esOrdered By: Dr. Draper on 03-12-2023 Monocytes/100 WBC (Bld) 8.7 % 0-10 [facility] Blood platelet mean volumeOr dered By: Dr. Draper on 03-12-2023 Platelet mean volume (Bld) [Entitic vol] 12.0 fL 6.2-12.0 [facility] Determination of erythrocyte mean corpuscular volume (MCV)Ordered By: Dr. Draper on 03-12-2023 MCV (RBC) [Entitic vol] 91.2 fL 81-99 [facility] Hematocrit Auto (Bld) [Volum e fraction]Ordered By: Dr. Draper on 03-12-2023 Hematocrit (Bld) [Volume fraction] 38.4 % 37-47 [facility] Influenza virus A and B and SARS-CoV-2 (COVID-19) Ag panel - Upper respiratory specimOrdered By: Dr. Draper on 03-12-2023 SARS-CoV-2 (COVID-19) RNA JOSE+probe Ql (Resp) [facility] Ketones Test strip Ql (U)Ord ered By: Dr. Draper on 03-12-2023 Ketones Ql (U) 150 mg/dl Negative [facility] Comment on above: CRITICAL VALUE *HCRI TICAL VALUE VERIFIED. CALLED TO ERLINDA [id number] Sumit Grant.RESULTS READ BACK BY SAME . Laboratory - Chemistry and C hemistry - challengeOrdered By: Dr. Draper on 03-12-2023 HCG ( test) Ql (U) Negative [facility] Comment on above: Very dilute urine sp ecimens, as indicated by a low specificgravity, may not contain representative personal service levels of hCG. If is still suspected, a first morning urinespecimen should be collected 48 hours later and tested. ALP [Catalytic activity/Vol] 69 U/L 45-117 [facility] ALT [Catalytic activity/Vol] 25 U/L 13-56 [facility] CO2 [Moles/Vol] 29.0 mmol/L 21.0-32.0 [facility] Globulin (S) [Mass/Vol] 4.7 g/dL 2.2-4.2 [facility] Urea nitrogen/Creatinine [Mass ratio] 24.5 mg/mg 10-20 [facility] Laboratory - Hematology and Cell countsOrdered By: Dr. Draper on 03-12-2023 Erythrocyte distribution width (RBC) [Entitic vol] 44.4 fL 35.1-43.9 [facility] Erythrocyte distribution width (RBC) [Ratio] 13.2 % 11.6-14.6 [facility] Immature granulocytes/100 WBC (Bld) 0.800 % 0.0-0.9 [facility] Comment on above: IG% - Immature Granu locytes (promyelocytes, myelocytes and metamyelocytes) > 1% indicates that a LEFT SHIFT is Present. MCH (RBC) [Entitic mass] 29.9 pg 27.0-32.0 [facility] Nucleated RBC/100 WBC (Bld) [Ratio] 0 % 0-5 [facility] MCHC Auto (RBC) [Mass/Vol]Or dered By: Dr. Draper on 03-12-2023 MCHC (RBC) [Mass/Vol] 32.8 g/dL 32-36 [facility] Mucus LM Ql (Urine sed)Order ed By: Dr. Draper on 03-12-2023 Mucus Ql (Urine sed) 0 SEEN /hpf [facility] Nitrite Test strip Ql (U)Ord ered By: Dr. Draper on 03-12-2023 Nitrite Ql (U) Positive Negative [facility] No Panel InformationOrdered By: Dr. Draper on 03-12-2023 Estimated Creatinine Clearance Calc 172.16 ml/min [facility] Estimated GFR (MDRD) Amer 199 mL/min >60 [facility] Comment on above: GFR Calc Estimated GFR (MDRD) Non-Af Amer 165 mL/min >60 [facility] Comment on above: Non- GFR Calc Platelets bldOrdered By: Dr. Draper on 03-12-2023 Platelets (Bld) [#/Vol] 251 10*3/uL 150-450 [facility] Protein Test strip Ql (U)Ord ered By: Dr. Draper on 03-12-2023 Protein Ql (U) 30 mg/dl Negative [facility] Serum or plasma albumin areli urement (mass/volume)Ordered By: Dr. Draper on 03-12-2023 Albumin [Mass/Vol] 3.3 g/dL 3.2-5.0 [facility] Serum or plasma albumin/glob ulin mass ratioOrdered By: Dr. Draper on 03-12-2023 Albumin/Globulin [Mass ratio] 0.7 {ratio} 0.9-2.4 [facility] Serum or plasma calcium areli urement (mass/volume)Ordered By: Dr. Draper on 03-12-2023 Calcium [Mass/Vol] 9.9 mg/dL 8.5-10.1 [facility] Serum or plasma creatinine m easurement (mass/volume)Ordered By: Dr. Draper on 03-12-2023 Creatinine [Mass/Vol] 0.49 mg/dL 0.55-1.02 [facility] Comment on above: The validity of the calculated GFR & GFRAA in patients over 70 years has not been determined. Clinical correlation is essential. Serum or plasma urea nitroge n measurement (mass/volume)Ordered By: Dr. Draper on 03-12-2023 Urea nitrogen [Mass/Vol] 12 mg/dL 7-18 [facility] Squamous epithelial cells de tection in urine sediment by light microscopyOrdered By: Dr. Draper on 03-12-2023 Epithelial cells.squamous LM Ql (Urine sed) 0 SEEN /hpf 5-10 [facility] Thin prep Papanicolaou smear with manual screeningOrdered By: Dr. Draper on 03-12-2023 Thin prep Papanicolaou smear with manual screening 12 U/L 15-37 [facility] Thin prep Papanicolaou smear with manual screening 10 5-15 [facility] Urine blood detectionOrdered By: Dr. Draper on 03-12-2023 RBC Ql (U) 250 /ul Negative [facility] RBC Ql (U) 0-5 SEEN /hpf 0-5 [facility] Urine clarityOrdered By: Dr. Draper on 03-12-2023 Clarity (U) Sl. Cloudy Clear [facility] Urine color determinationOrd ered By: Dr. Draper on 03-12-2023 Color (U) Yellow Yellow [facility] Urine glucose detectionOrder ed By: Dr. Draper on 03-12-2023 Glucose Ql (U) Normal mg/dl Normal [facility] Urine leukocyte esterase det ection by dipstickOrdered By: Dr. Draper on 03-12-2023 Leukocyte esterase Test strip Ql (U) 500 /ul Negative [facility] Urine pHOrdered By: Dr. Joseph cazares on 03-12-2023 pH (U) 6.0 [pH] 5.0 - 8.0 [facility] Urine sediment bacteria coun t by microscopy (number/high power field)Ordered By: Dr. Draper on 03-12-2023 Bacteria LM.HPF (Urine sed) [#/Area] 2 /[HPF] None Seen [facility] Urine specific gravity measu rementOrdered By: Dr. Draper on 03-12-2023 Specific gravity (U) [Rel density] 1.020 1.002-1.030 [facility] Urobilinogen Auto test strip Ql (U)Ordered By: Dr. Draper on 03-12-2023 Urobilinogen Ql (U) Normal mg/dl Normal [facility] Culture, urineOrdered By: Danica Bautista on 01-18-2023 Bacteria identified Cx Nom (U) Escherichia coli [facility] Amorphous sediment detection in urine sediment by light microscopyOrdered By: Luis Enrique Bautista on 01-16-2023 Amorphous sediment LM Ql (Urine sed) 2+ [facility] Basophil percentageOrdered B y: Luis Enrique Bautista on 01-16-2023 Basophil percentage >100 SEEN /hpf 0-[address] [facility] Bilirubin Test strip Ql (U)O rdered By: Luis Enrique Bautista on 01-16-2023 Bilirubin Ql (U) 3 mg/dL Negative [facility] Comment on above: COLOR OF URINE MAY A FFECT DIPSTICK RESULTS. Ketones Test strip Ql (U)Ord ered By: Luis Enrique Bautista on 01-16-2023 Ketones Ql (U) Negative Negative [facility] Laboratory - Chemistry and C hemistry - challengeOrdered By: Luis Enrique Bautista on 01-16-2023 HCG ( test) Ql (U) Negative [facility] Comment on above: Very dilute urine sp ecimens, as indicated by a low specificgravity, may not contain representative personal service levels of hCG. If is still suspected, a first morning urinespecimen should be collected 48 hours later and tested. Mucus LM Ql (Urine sed)Order ed By: Luis Enrique Bautista on 01-16-2023 Mucus Ql (Urine sed) 0 SEEN /hpf [facility] Nitrite Test strip Ql (U)Ord ered By: Luis Enrique Bautista on 01-16-2023 Nitrite Ql (U) Positive Negative [facility] Protein Test strip Ql (U)Ord ered By: Luis Enrique Bautista on 01-16-2023 Protein Ql (U) 30 mg/dl Negative [facility] Squamous epithelial cells de tection in urine sediment by light microscopyOrdered By: Luis Enrique Bautista on 01-16-2023 Epithelial cells.squamous LM Ql (Urine sed) 0-5 SEEN /hpf 5-10 [facility] Urine blood detectionOrdered By: Luis Enrique Bautista on 01-16-2023 RBC Ql (U) 150 /ul Negative [facility] RBC Ql (U) 10-25 SEEN /hpf 0-5 [facility] Urine clarityOrdered By: Ric Bautista on 01-16-2023 Clarity (U) Cloudy Clear [facility] Urine color determinationOrd ered By: Luis Enrique Bautista on 01-16-2023 Color (U) Yellow Yellow [facility] Urine glucose detectionOrder ed By: Luis Enrique Bautista on 01-16-2023 Glucose Ql (U) Normal mg/dl Normal [facility] Urine leukocyte esterase det ection by dipstickOrdered By: Luis Enrique Bautista on 01-16-2023 Leukocyte esterase Test strip Ql (U) 500 /ul Negative [facility] Urine pHOrdered By: Luis Enrique olivares on 01-16-2023 pH (U) 8.0 [pH] 5.0 - 8.0 [facility] Urine sediment bacteria coun t by microscopy (number/high power field)Ordered By: Luis Enrique Bautista on 01-16-2023 Bacteria LM.HPF (Urine sed) [#/Area] 4 /[HPF] None Seen [facility] Urine specific gravity measu rementOrdered By: Luis Enrique Bautista on 01-16-2023 Specific gravity (U) [Rel density] 1.015 1.002-1.030 [facility] Urobilinogen Auto test strip Ql (U)Ordered By: Luis Enrique Bautista on 01-16-2023 Urobilinogen Ql (U) 8 mg/dl Normal [facility] UA DIP, URINE (POC)on 2022 BILIRUBIN UA (POCT) Negative Negative [facility] CLARITY UA (POCT) Cloudy [facility] COLOR UA (POCT) Dark yellow [facility] GLUCOSE UA (POCT) Negative Negative mg/dL [facility] HEMOGLOBIN/BLOOD UA (POCT) Trace-intact Abnormal Negative [facility] KETONE UA (POCT) Negative Negative mg/dL [facility] LEUKOCYTES UA (POCT) Trace Abnormal Negative [facility] NITRITE UA (POCT) Negative Negative [facility] PH UA (POCT) 6.5 4.5 - 8.0 [facility] Protein Ql (U) 30 mg/dL Abnormal Negative mg/dL [facility] SPECIFIC GRAVITY UA (POCT) >=1.030 1.005 - 1.030 [facility] UROBILINOGEN UA (POCT) 0.2 E.U./dL Normal E.U./dL [facility] Culture, urineOrdered By: Dr Celine Quiñonez on 12-16-2022 Bacteria identified Cx Nom (U) Presumptive E. coli [facility] Basophil percentageOrdered B y: Dr. Quiñonez on 12-14-2022 Basophil percentage 25-50 SEEN /hpf 0-5 [facility] Bilirubin Test strip Ql (U)O rdered By: Dr. Quiñonez on 12-14-2022 Bilirubin Ql (U) Negative Negative [facility] Ketones Test strip Ql (U)Ord ered By: Dr. Quiñonez on 12-14-2022 Ketones Ql (U) Negative Negative [facility] Laboratory - Chemistry and C hemistry - challengeOrdered By: Dr. Quiñonez on 12-14-2022 HCG ( test) Ql (U) Negative [facility] Comment on above: Very dilute urine sp ecimens, as indicated by a low specificgravity, may not contain representative personal service levels of hCG. If is still suspected, a first morning urinespecimen should be collected 48 hours later and tested. Mucus LM Ql (Urine sed)Order ed By: Dr. Quiñonez on 12-14-2022 Mucus Ql (Urine sed) 0 SEEN /hpf [facility] Nitrite Test strip Ql (U)Ord ered By: Dr. Quiñonez on 12-14-2022 Nitrite Ql (U) Negative Negative [facility] Protein Test strip Ql (U)Ord ered By: Dr. Quiñonez on 12-14-2022 Protein Ql (U) 100 mg/dl Negative [facility] Squamous epithelial cells de tection in urine sediment by light microscopyOrdered By: Dr. Quiñonez on 12-14-2022 Epithelial cells.squamous LM Ql (Urine sed) 0-5 SEEN /hpf 5-10 [facility] Urine blood detectionOrdered By: Dr. Quiñonez on 12-14-2022 RBC Ql (U) 250 /ul Negative [facility] RBC Ql (U) 25-50 SEEN /hpf 0-5 [facility] Urine clarityOrdered By: Dr. Quiñonez on 12-14-2022 Clarity (U) Cloudy Clear [facility] Urine color determinationOrd ered By: Dr. Quiñonez on 12-14-2022 Color (U) Yellow Yellow [facility] Urine glucose detectionOrder ed By: Dr. Quiñonez on 12-14-2022 Glucose Ql (U) Normal mg/dl Normal [facility] Urine leukocyte esterase det ection by dipstickOrdered By: Dr. Quiñonez on 12-14-2022 Leukocyte esterase Test strip Ql (U) 500 /ul Negative [facility] Urine pHOrdered By: Dr. Nadiya barros on 12-14-2022 pH (U) 7.0 [pH] 5.0 - 8.0 [facility] Urine sediment bacteria coun t by microscopy (number/high power field)Ordered By: Dr. Quiñonez on 12-14-2022 Bacteria LM.HPF (Urine sed) [#/Area] 3 /[HPF] None Seen [facility] Urine specific gravity measu rementOrdered By: Dr. Quiñonez on 12-14-2022 Specific gravity (U) [Rel density] 1.010 1.002-1.030 [facility] Urobilinogen Auto test strip Ql (U)Ordered By: Dr. Quiñonez on 12-14-2022 Urobilinogen Ql (U) Normal mg/dl Normal [facility] STREP A MOLECULAR (POC)on Procedural Control Valid [facility] Strep A (POCT) Negative Negative [facility] STREP A MOLECULAR (POC)on Procedural Control Valid [facility] Strep A (POCT) Negative Negative [facility] Procedural Control Valid [facility] Strep A (POCT) Negative Negative [facility] FOOT COMP MIN 3 VWS RTon FOOT [...] CHOPRA M.D. Signed By: ERMIAS CHOPRA M.D. [facility] 07-26-2021 [facility] DATE OF SERVICE: 07/26/2021 SUBJECTIVE: This [...] tender over the base of the 5th [facility] PATIENT NAME: JACKSON [place] Dr. Maki MEDICAL REC #: [id number] [place] [address] [facility] REPORT [facility] PH[facility]ICIAN metatarsal. The ankle is [...] with an orthopedic doctor. Alexander Andrew MD /[id number] [facility] File#: [id number] END OF DOCUMENT / CHANGE LOG FOLLOWS Last Edited By [facility]. Signed By Alexander Andrew MD #HUDMA Alexander Andrew MD #DELORES on 07/31/2021 09:43 ET on 07/31/2021 09:43 ET Revision Number - 2 [facility] PATIENT NAME: J[place]SON [place] Sana Maki MEDICAL REC #: [id number] [place] [address] [facility] REPORT [facility] Verified/Reviewed by 07/31/21 0943 [facility] PATIENT NAME: J[place]SON [place] [address] Maki MEDICAL REC #: [id number] [place] [address] [facility] REPORT [facility]IC[facility] Normal [facility] REPORT Normal [facility] URINE PREGNANCYon 04-18-2021 Beta HCG ( test) Ql (U) Negative Normal NEGATIVE [facility] Comment on above: Performed By: #### L [id number] #### [facility] [address] [place] [address] UR SPEC GRAV 1.011 Normal 1.005-1.030 [facility] Comment on above: Performed By: #### L [id number] #### [facility] [address] [place] [address] CHEST 2 VIEWSon 03-30-2019 CHEST 2 VIEWS [place] [address] Patient: JACKSON [place] Phone#: : 2000 Age: 18 Gender: F Pt. Type: ER Account: [id number] Location: 052 Ordering: FANNY NICOLE Exam Date: 03/30/2019/0:24 Family Phys: NO DOCTOR Charge Code: [id number] Physician: Alexander Order #: [id number] DLP Dose#: PROCEDURE: X-RAY CHEST 2 VIEWS [...] on 03/30/2019 at 9:[address] [facility] CHEST W/O CONTRASTon 03-12 CT CHEST W/O CONTRAST [place] [address] Patient: J[place]SON [place] Phone#: : 2000 Age: 18 Gender: F Pt. Type: ER Account: [id number] Location: [facility] Ordering: FANNY NICOLE Exam Date: 03/30/2019/1:39 Family Phys: NO DOCTOR Charge Code: [id number] Physician: Alexander Order #: [id number] DLP Dose#: 3.20 PROCEDURE: CT CHEST WITHOUT [...] 18 Gender: F Pt. Type: ER Account: [id number] Location: 052 Ordering: FANNY NICOLE Exam Date: 03/30/2019/1:39 Family Phys: NO DOCTOR Charge Code: [id number] Physician: Alexander Order #: [id number] DLP Dose#: 3.20 CONCLUSION: 1. No appreciable acute intrathoracic abnormality. 2. Anterior mediastinal soft tissue density likely represents residual thymus though cannot exclude hemorrhage. Dictated by: Antionette Gant MD on 03/30/2019 at 10:03 Approved by: Antionette Gnat MD on 03/30/2019 at 10:[address] [facility] CT CHEST W/O CONTRAST [place] [address] Patient: J[place] Phone#: : 2000 Age: 18 Gender: F Pt. Type: ER Account: [id number] Location: 052 Ordering: FANNY NICOLE Exam Date: 03/30/2019/1:39 Family Phys: NO DOCTOR Charge Code: [id number] Physician: Alexander Order #: [id number] DLP Dose#: 3.20 PROCEDURE: CT CHEST WITHOUT [...] 18 Gender: F Pt. Type: ER Account: [id number] Location: [facility] Ordering: FANNY NICOLE Exam Date: 03/30/2019/1:39 Family Phys: NO DOCTOR Charge Code: [id number] Physician: Alexander Order #: [id number] DLP Dose#: 3.20 CONCLUSION: 1. No appreciable acute intrathoracic abnormality. 2. Anterior mediastinal soft tissue density likely represents residual thymus though cannot exclude hemorrhage. Dictated by: Antionette Gant MD on 03/30/2019 at 10:03 Approved by: Antionette Gant MD on 03/30/2019 at 10:[address] [facility] DRUG SCREEN URINE MEDICon Amphetamines Ql (U) Positive Normal [facility] Comment on above: Performed By: #### 2 [id number] #### [place] [address] B-DIAZEPINES Positive Normal [facility] Comment on above: Performed By: #### 2 32610 #### [facility],[address] [place] [address] BARBITURATES Negative Normal [facility] Comment on above: Performed By: #### 2 09286 #### [place] [address] Cocaine Ql (U) Negative Normal [facility] Comment on above: Performed By: #### 2 27242 #### [facility],[address] [place] [address] DRUG SCREEN URINE MEDIC Normal [facility] Comment on above: Result Comment: DRUG SCREEN - URINE Performed By: #### 2 40837 #### [facility],[address] [place], [place] [address] Methadone Ql (U) Negative Normal [facility] Comment on above: Performed By: #### 2 12638 #### [facility],[address] [place] [address] Opiates Ql (U) Negative Normal [facility] Comment on above: Performed By: #### 2 19420 #### [facility],[address] [place] [address] PCP Negative Normal [facility] Comment on above: Performed By: #### 2 80051 #### [facility],[address] [place] [address] TCA Negative Normal [facility] Comment on above: Performed By: #### 2 87190 #### [facility],[address] [place] [address] THC Positive Normal [facility] Comment on above: Result Comment: LUCI ENTS RECEIVING PROTON PUMP INHIBITORS MAY DEMONSTRATE FALSE POSITIVE THC/CANNABINOID RESULTS. AN ALTERNATIVE CONFIRMATORY METHOD SHOULD BE CONSIDERED TO VERIFY POSITIVE RESULTS. Performed By: #### 2 16051 #### [facility],[address] [place], [place] [address] PELVIS 1 or 2 VIEWSon 2018 PELVIS 1 or 2 VIEWS [place] [address] Patient: J[place] Phone#: : 2000 Age: 18 Gender: F Pt. Type: ER Account: [id number] Location: [facility] Ordering: FANNY Arellano COREY Exam Date: 03/30/2019/0:26 Family Phys: NO DOCTOR Charge Code: [id number] Physician: Alexander Order #: [id number] DLP Dose#: PROCEDURE: X-RAY PELVIS AP COMPARISON: None. INDICATIONS: Trauma FINDINGS: BONES: Normal. No significant arthropathy or acute abnormality. SOFT TISSUES: Negative. No visible soft tissue swelling. EFFUSION: None visible. OTHER: Negative. CONCLUSION: 1. No acute osseous abnormality. Dictated by: Antionette Gant MD on 03/30/2019 at 9:03 Approved by: Antionette Gant MD on 03/30/2019 at 9:[address] [facility] URINEon 03-30-2019 Beta HCG ( test) Ql (U) Negative Normal NEGATIVE [facility] Comment on above: Performed By: #### 2 91679 #### [facility],[address] [place] [address] EXTERNAL QC DONE? YES Normal [facility] Comment on above: Performed By: #### 2 13548 #### [facility],[address] [place] [address] INTERNAL QC PASS Normal [facility] Comment on above: Performed By: #### 2 91981 #### [facility],[address] [place] [address] Vital Signs Date Time Vital Sign Value Performing Clinician Facility 05-08-2025 13:34-0400 Body mass index (BMI) [Ratio] 32.12 kg/m2 Kelli Older [employer] WORKER.[employer] CONSULTANT Work Phone: [facility] 05-08-2025 13:34-0400 Body weight 90.27 kg [employer] WORK[employer] CONSULTANT Work Phone: [facility] 05-08-2025 13:34-0400 Diastolic blood pressure 70 mm[Hg] Kelli Older [employer]VIL WORKER.COST CONSULTANT Work Phone: [facility] 05-08-2025 13:34-0400 Heart rate 82 /min Kelli Older [employer]VIL WORKER.COST CONSULTANT Work Phone: [facility] 05-08-2025 13:34-0400 Respiratory rate 16 /min Kelli Older [employer]VIL WORKER.COST CONSULTANT Work Phone: [facility] 05-08-2025 13:34-0400 SaO2% (BldA) [Mass fraction] 98 % Kelli Older [employer]VIL WORKER.COST CONSULTANT Work Phone: [facility] 05-08-2025 13:34-0400 Systolic blood pressure 112 mm[Hg] Kelli Older [employer]VIL WORKER.COST CONSULTANT Work Phone: [facility] 04-24-2025 18:10-0400 Body mass index (BMI) [Ratio] 31.46 kg/m2 Binta Hathaway [employer]VIL WORKER.COST CONSULTANT Work Phone: [facility] 04-24-2025 18:10-0400 Body temperature 98.6 [degF] Binta Hathaway [employer]VIL WORKER.COST CONSULTANT Work Phone: [facility] 04-24-2025 18:10-0400 Body weight 88.4 kg Binta Hathaway ANVIL WORKER.COST CONSULTANT Work Phone: [facility] 04-24-2025 18:10-0400 Diastolic blood pressure 76 mm[Hg] Binta Hathaway ANVIL WORKER.COST CONSULTANT Work Phone: [facility] 04-24-2025 18:10-0400 Heart rate 65 /min Binta Hathaway [employer]VIL WORKER.COST CONSULTANT Work Phone: [facility] 04-24-2025 18:10-0400 Respiratory rate 18 /min Binta Hathaway [employer]VIL WORKER.COST CONSULTANT Work Phone: [facility] 04-24-2025 18:10-0400 SaO2% (BldA) [Mass fraction] 100 % Binta Hathaway [employer]VIL WORKER.COST CONSULTANT Work Phone: [facility] 04-24-2025 18:10-0400 Systolic blood pressure 112 mm[Hg] Binta Hathaway ANVIL WORKER.COST CONSULTANT Work Phone: [facility] 04-15-2025 18:16-0400 Body temperature 97.1 [degF] Dr. Tremayne Quiñonez MD Work Phone: [facility] 04-15-2025 18:16-0400 Diastolic blood pressure 72 mm[Hg] Dr. Tremayne Quiñonez MD Work Phone: [facility] 04-15-2025 18:16-0400 Heart rate 81 /min Dr. Tremayne Quiñonez MD Work Phone: [facility] 04-15-2025 18:16-0400 Respiratory rate 16 /min Dr. Tremayne Quiñonez MD Work Phone: [facility] 04-15-2025 18:16-0400 SaO2% (BldA) [Mass fraction] 98 % Dr. Tremayne Quiñonez MD Work Phone: [phone])308-851274 [place] [address] 04-15-2025 18:16-0400 Systolic blood pressure 111 mm[Hg] Dr. Tremayne Quiñonez MD Work Phone: [phone] [place] [address] 04-15-2025 17:29-0400 Body height 167.[address] Tremayne Quiñonez MD Work Phone: 6(260)[phone] [place] [address] 04-15-2025 17:29-0400 Body mass index (BMI) [Ratio] 32.4 kg/m2 Dr. Tremayne Quiñonez MD Work Phone: 4(185)083-151874 [place] [address] 04-15-2025 17:29-0400 Body weight 91.[address] Tremayne Quiñonez MD Work Phone: [facility] 03-22-2025 15:17-0400 Body mass index (BMI) [Ratio] 31.64 kg/m2 Karina Kwong MD Work Phone: [facility] 03-22-2025 15:17-0400 Body weight 88.91 kg Karina Kwong MD Work Phone: [facility] 03-22-2025 15:17-0400 Diastolic blood pressure 74 mm[Hg] Karina Kwong MD Work Phone: [facility] 03-22-2025 15:17-0400 Systolic blood pressure 116 mm[Hg] Karina Kwong MD Work Phone: [facility] 03-10-2025 14:57-0400 Body height 167.6 cm Ruthie Luna MD Work Phone: [facility] 03-10-2025 14:57-0400 Body mass index (BMI) [Ratio] 30.93 kg/m2 Ruthie Luna MD Work Phone: [facility] 03-10-2025 14:57-0400 Body temperature 98.6 [degF] Ruthie Luna MD Work Phone: [facility] 03-10-2025 14:57-0400 Body weight 86.91 kg Ruthie Luna MD Work Phone: [facility] 03-10-2025 14:57-0400 Diastolic blood pressure 70 mm[Hg] Ruthie Luna MD Work Phone: [facility] 03-10-2025 14:57-0400 Heart rate 95 /min Ruthie Luna MD Work Phone: [facility] 03-10-2025 14:57-0400 SaO2% (BldA) [Mass fraction] 98 % Ruthie Luna MD Work Phone: [facility] 03-10-2025 14:57-0400 Systolic blood pressure 110 mm[Hg] Ruthie Luna MD Work Phone: [facility] 02-22-2025 13:40-0400 Body mass index (BMI) [Ratio] 30.38 kg/m2 Binta Carcamo APRN.CNM Work Phone: [facility] 02-22-2025 13:40-0400 Body weight 85.37 kg Binta Carcamo APRN.CNM Work Phone: [facility] 02-22-2025 13:40-0400 Diastolic blood pressure 60 mm[Hg] Binta Carcamo APRN.CNM Work Phone: [facility] 02-22-2025 13:40-0400 Systolic blood pressure 118 mm[Hg] Binta Carcamo APRN.CNM Work Phone: [facility] 01-12-2025 08:19-0400 Body mass index (BMI) [Ratio] 29.54 kg/m2 Reagan Campos APRN.COST CONSULTANT Work Phone: [facility] 01-12-2025 08:19-0400 Body weight 83.01 kg Reagan Mathurury [employer]VIL WORKER.COST CONSULTANT Work Phone: [facility] 01-12-2025 08:19-0400 Diastolic blood pressure 60 mm[Hg] Reagan Haury [employer]VIL WORKER.COST CONSULTANT Work Phone: [facility] 01-12-2025 08:19-0400 Systolic blood pressure 112 mm[Hg] Reagan Haury ANVIL WORKER.COST CONSULTANT Work Phone: [facility] 12-04-2024 14:25-0500 Body mass index (BMI) [Ratio] 29.11 kg/m2 Feli Moomaw [employer]VIL WORKER.COST CONSULTANT Work Phone: [facility] 12-04-2024 14:25-0500 Body temperature 99.5 [degF] Feli Moomaw [employer]VIL WORKER.COST CONSULTANT Work Phone: [facility] 12-04-2024 14:25-0500 Body weight 81.8 kg Feli Moomaw [employer]VIL WORKER.COST CONSULTANT Work Phone: [facility] 12-04-2024 14:25-0500 Diastolic blood pressure 82 mm[Hg] Feli Moomaw [employer]VIL WORKER.COST CONSULTANT Work Phone: [facility] 12-04-2024 14:25-0500 Heart rate 108 /min Feli Moomaw [employer]VIL WORKER.COST CONSULTANT Work Phone: [facility] 12-04-2024 14:25-0500 Respiratory rate 20 /min Feli Moomaw [employer]VIL WORKER.COST CONSULTANT Work Phone: [facility] 12-04-2024 14:25-0500 SaO2% (BldA) [Mass fraction] 98 % Feli Moomaw [employer]VIL WORKER.COST CONSULTANT Work Phone: [facility] 12-04-2024 14:25-0500 Systolic blood pressure 116 mm[Hg] Feli Moomaw [employer]VIL WORKER.COST CONSULTANT Work Phone: [facility] [facility] 11-22-2024 08:08-0500 Body mass index (BMI) [Ratio] 28.7 kg/m2 Ruthie Luna MD Work Phone: [facility] 11-22-2024 08:08-0500 Body temperature 98.01 [degF] Ruthie Luna MD Work Phone: [facility] 11-22-2024 08:08-0500 Body weight 80.65 kg Ruthie Luna MD Work Phone: [facility] 11-22-2024 08:08-0500 Diastolic blood pressure 75 mm[Hg] Ruthie Luna MD Work Phone: [facility] 11-22-2024 08:08-0500 Heart rate 88 /min Ruthie Luna MD Work Phone: [facility] 11-22-2024 08:08-0500 SaO2% (BldA) [Mass fraction] 96 % Ruthie Luna MD Work Phone: [facility] 11-22-2024 08:08-0500 Systolic blood pressure 118 mm[Hg] Ruthie Luna MD Work Phone: [facility] 11-18-2024 16:51-0500 Body mass index (BMI) [Ratio] 28.96 kg/m2 Tyler Salmon APRN.COST CONSULTANT Work Phone: [facility] 11-18-2024 16:51-0500 Body temperature 98.1 [degF] Tyler Salmon APRN.COST CONSULTANT Work Phone: [facility] 11-18-2024 16:51-0500 Body weight 81.4 kg Tyler Salmon APRN.COST CONSULTANT Work Phone: [facility] 11-18-2024 16:51-0500 Diastolic blood pressure 78 mm[Hg] Tyler Salmon APRN.COST CONSULTANT Work Phone: [facility] 11-18-2024 16:51-0500 Heart rate 91 /min Tyler Salmon APRN.COST CONSULTANT Work Phone: [facility] 11-18-2024 16:51-0500 Respiratory rate 18 /min Tyler Luis Antonio ANVIL WORKER.COST CONSULTANT Work Phone: [facility] 11-18-2024 16:51-0500 SaO2% (BldA) [Mass fraction] 99 % Tyler Salmon ANVIL WORKER.COST CONSULTANT Work Phone: [facility] 11-18-2024 16:51-0500 Systolic blood pressure 111 mm[Hg] Tyler Luis Antonio ANVIL WORKER.COST CONSULTANT Work Phone: [facility] 10-30-2024 10:04-0500 Body mass index (BMI) [Ratio] 28.11 kg/m2 Binta Hathaway ANVIL WORKER.COST CONSULTANT Work Phone: [facility] 10-30-2024 10:04-0500 Body temperature 100.09 [degF] Binta Hathaway ANVIL WORKER.COST CONSULTANT Work Phone: [facility] 10-30-2024 10:04-0500 Body weight 79 kg Binta Hathaway ANVIL WORKER.COST CONSULTANT Work Phone: [facility] 10-30-2024 10:04-0500 Diastolic blood pressure 84 mm[Hg] Binta Hathaway ANVIL WORKER.COST CONSULTANT Work Phone: [facility] 10-30-2024 10:04-0500 Heart rate 86 /min Binta Hathaway ANVIL WORKER.COST CONSULTANT Work Phone: [facility] 10-30-2024 10:04-0500 Respiratory rate 20 /min Binta Hathaway ANVIL WORKER.COST CONSULTANT Work Phone: [facility] 10-30-2024 10:04-0500 SaO2% (BldA) [Mass fraction] 97 % Binta Hathaway ANVIL WORKER.COST CONSULTANT Work Phone: [facility] 10-30-2024 10:04-0500 Systolic blood pressure 128 mm[Hg] Binta Hathaway ANVIL WORKER.COST CONSULTANT Work Phone: [facility] 10-25-2024 11:41-0500 Body mass index (BMI) [Ratio] 28.57 kg/m2 Binta Carcamo ANVIL WORKER.CNM Work Phone: [facility] 10-25-2024 11:41-0500 Body weight 80.29 kg Binta Carcamo ANVIL WORKER.CNM Work Phone: [facility] 10-25-2024 11:41-0500 Diastolic blood pressure 60 mm[Hg] Binta Carcamo ANVIL WORKER.CNM Work Phone: [facility] 10-25-2024 11:41-0500 Systolic blood pressure 100 mm[Hg] Binta Carcamo ANVIL WORKER.CNM Work Phone: [facility] 09-13-2024 13:43-0500 Body mass index (BMI) [Ratio] 27.57 kg/m2 Karina Kwong MD Work Phone: [facility] 09-13-2024 13:43-0500 Body weight 77.47 kg Karina Kwong MD Work Phone: [facility] 09-13-2024 13:43-0500 Diastolic blood pressure 76 mm[Hg] Karina Kwong MD Work Phone: [facility] 09-13-2024 13:43-0500 Systolic blood pressure 118 mm[Hg] Karina Kwong MD Work Phone: [facility] 08-29-2024 14:43-0500 Body mass index (BMI) [Ratio] 27.47 kg/m2 Reagan Campos ANVIL WORKER.COST CONSULTANT Work Phone: [facility] 08-29-2024 14:43-0500 Body weight 77.2 kg Reaganlowell Campos ANVIL WORKER.COST CONSULTANT Work Phone: [facility] 08-29-2024 14:43-0500 Diastolic blood pressure 60 mm[Hg] Reagan Haury ANVIL WORKER.COST CONSULTANT Work Phone: [facility] 08-29-2024 14:43-0500 Systolic blood pressure 102 mm[Hg] Reagan Haury ANVIL WORKER.COST CONSULTANT Work Phone: [facility] 07-22-2024 14:42-0400 Body mass index (BMI) [Ratio] 26.63 kg/m2 Tania Doe MD Work Phone: [facility] 07-22-2024 14:42-0400 Body weight 74.84 kg Tania Doe MD Work Phone: [facility] 07-22-2024 14:42-0400 Diastolic blood pressure 60 mm[Hg] Taina Doe MD Work Phone: [facility] 07-22-2024 14:42-0400 Systolic blood pressure 106 mm[Hg] Tania Doe MD Work Phone: [facility] 06-24-2024 14:01-0400 Body mass index (BMI) [Ratio] 26.31 kg/m2 Mihir Albright MD Work Phone: [facility] 06-24-2024 14:01-0400 Body weight 73.94 kg Mihir Albright MD Work Phone: [facility] 06-24-2024 14:01-0400 Diastolic blood pressure 60 mm[Hg] Mihir Albright MD Work Phone: [facility] 06-24-2024 14:01-0400 Systolic blood pressure 100 mm[Hg] Mihir Albright MD Work Phone: [facility] 05-16-2024 16:10-0400 Body mass index (BMI) [Ratio] 27.44 kg/m2 Berta Eldridge APRN.CNM Work Phone: [facility] 05-16-2024 16:10-0400 Body weight 77.11 kg Berta Eldridge ANVIL WORKER.CNM Work Phone: [facility] 05-16-2024 16:10-0400 Diastolic blood pressure 86 mm[Hg] Berta Eldridge ANVIL WORKER.CNM Work Phone: [facility] 05-16-2024 16:10-0400 Systolic blood pressure 128 mm[Hg] Berta Eldridge ANVIL WORKER.CNM Work Phone: [facility] 05-11-2024 14:25-0400 Body mass index (BMI) [Ratio] 30.18 kg/m2 Berta Eldridge ANVIL WORKER.CNM Work Phone: [facility] 05-11-2024 14:25-0400 Body weight 84.82 kg Berta Eldridge ANVIL WORKER.CNM Work Phone: [facility] 05-11-2024 14:25-0400 Diastolic blood pressure 88 mm[Hg] Berta Eldridge ANVIL WORKER.CNM Work Phone: [facility] 05-11-2024 14:25-0400 Systolic blood pressure 130 mm[Hg] Berta Eldridge ANVIL WORKER.CNM Work Phone: [facility] 05-06-2024 14:11-0400 Diastolic blood pressure 97 mm[Hg] Urban Burnett MD Work Phone: [facility] Comment on above: [employer] Average 05-06-2024 14:11-0400 Systolic blood pressure 144 mm[Hg] Urban Burnett MD Work Phone: [facility] Comment on above: [employer] Average 05-06-2024 13:58-0400 Body mass index (BMI) [Ratio] 32.6 kg/m2 Urban Burnett MD Work Phone: [facility] 05-06-2024 13:58-0400 Body weight 91.63 kg Urban Burnett MD Work Phone: [facility] 04-29-2024 16:36-0400 Body mass index (BMI) [Ratio] 32.02 kg/m2 Krislyn Aberegg PA Work Phone: [facility] 04-29-2024 16:36-0400 Body temperature 98.8 [degF] Krislyn Aberegg PA Work Phone: [facility] 04-29-2024 16:36-0400 Body weight 90 kg Krislyn Aberegg PA Work Phone: [facility] 04-29-2024 16:36-0400 Diastolic blood pressure 84 mm[Hg] Krislyn Aberegg PA Work Phone: [facility] 04-29-2024 16:36-0400 Heart rate 104 /min Krislyn Aberegg PA Work Phone: [facility] 04-29-2024 16:36-0400 Respiratory rate 16 /min Krislyn Aberegg PA Work Phone: [facility] 04-29-2024 16:36-0400 SaO2% (BldA) [Mass fraction] 97 % Krislyn Aberegg PA Work Phone: [facility] 04-29-2024 16:36-0400 Systolic blood pressure 132 mm[Hg] Krislyn Aberegg PA Work Phone: [facility] 04-29-2024 14:37-0400 Body mass index (BMI) [Ratio] 31.96 kg/m2 Reagan Campos ANVIL WORKER.COST CONSULTANT Work Phone: [facility] 04-29-2024 14:37-0400 Body weight 89.81 kg Reagan Campos ANVIL WORKER.COST CONSULTANT Work Phone: [facility] 04-29-2024 14:37-0400 Diastolic blood pressure 88 mm[Hg] Reagan Campos ANVIL WORKER.COST CONSULTANT Work Phone: [facility] 04-29-2024 14:37-0400 Systolic blood pressure 120 mm[Hg] Reagan Campos ANVIL WORKER.COST CONSULTANT Work Phone: [facility] 04-19-2024 15:11-0400 Diastolic blood pressure 82 mm[Hg] Binta Carcamo ANVIL WORKER.CNM Work Phone: [facility] 04-19-2024 15:11-0400 Systolic blood pressure 122 mm[Hg] Binta Carcamo ANVIL WORKER.CNM Work Phone: [facility] 04-19-2024 14:28-0400 Body mass index (BMI) [Ratio] 31.47 kg/m2 Binta Carcamo ANVIL WORKER.CNM Work Phone: [facility] 04-19-2024 14:28-0400 Body weight 88.45 kg Binta Carcamo ANVIL WORKER.CNM Work Phone: [facility] 04-12-2024 13:18-0400 Body mass index (BMI) [Ratio] 31.09 kg/m2 Mihir Albright MD Work Phone: [facility] 04-12-2024 13:18-0400 Body weight 87.36 kg Mihir Albright MD Work Phone: [facility] 04-12-2024 13:18-0400 Diastolic blood pressure 82 mm[Hg] Mihir Albright MD Work Phone: [facility] 04-12-2024 13:18-0400 Systolic blood pressure 120 mm[Hg] Mihir Albright MD Work Phone: [facility] 04-01-2024 13:35-0400 Diastolic blood pressure 75 mm[Hg] Ob Ultrasound Work Phone: [facility] 04-01-2024 13:35-0400 Systolic blood pressure 119 mm[Hg] Ob Ultrasound Work Phone: [facility] 03-31-2024 13:03-0400 Body mass index (BMI) [Ratio] 30.51 kg/m2 Berta Plotts ANVIL WORKER.CNM Work Phone: [facility] 03-31-2024 13:03-0400 Body weight 85.73 kg Berta Plotts ANVIL WORKER.CNM Work Phone: [facility] 03-31-2024 13:03-0400 Diastolic blood pressure 66 mm[Hg] Berta Plotts ANVIL WORKER.CNM Work Phone: [facility] 03-31-2024 13:03-0400 Systolic blood pressure 108 mm[Hg] Berta Plotts ANVIL WORKER.CNM Work Phone: [facility] 03-16-2024 14:31-0400 Body mass index (BMI) [Ratio] 29.21 kg/m2 Berta Plotts ANVIL WORKER.CNM Work Phone: [facility] 03-16-2024 14:31-0400 Body weight 82.1 kg Berta Eldridge ANVIL WORKER.CNM Work Phone: [facility] 03-16-2024 14:31-0400 Diastolic blood pressure 60 mm[Hg] Berta Eldridge ANVIL WORKER.CNM Work Phone: [facility] 03-16-2024 14:31-0400 Systolic blood pressure 116 mm[Hg] Berta Eldridge ANVIL WORKER.CNM Work Phone: [facility] 02-17-2024 15:47-0400 Body mass index (BMI) [Ratio] 28.34 kg/m2 Dex Montesinos MD Work Phone: [facility] 02-17-2024 15:47-0400 Body weight 79.65 kg Dex Montesinos MD Work Phone: [facility] 02-17-2024 15:47-0400 Diastolic blood pressure 60 mm[Hg] Dex Montesinos MD Work Phone: [facility] 02-17-2024 15:47-0400 Systolic blood pressure 102 mm[Hg] Dex Montesinos MD Work Phone: [facility] 02-02-2024 13:06-0400 Body mass index (BMI) [Ratio] 27.83 kg/m2 Mihir Albright MD Work Phone: [facility] 02-02-2024 13:06-0400 Body weight 78.2 kg Mihir Albright MD Work Phone: [facility] 02-02-2024 13:06-0400 Diastolic blood pressure 64 mm[Hg] Mihir Albright MD Work Phone: [facility] 02-02-2024 13:06-0400 Systolic blood pressure 100 mm[Hg] Mihir Albright MD Work Phone: [facility] 01-05-2024 14:34-0400 Body weight 75.75 kg Mihir Albright MD Work Phone: [facility] 01-05-2024 14:34-0400 Diastolic blood pressure 68 mm[Hg] Mihir Albright MD Work Phone: [facility] 01-05-2024 14:34-0400 Systolic blood pressure 102 mm[Hg] Mihir Albright MD Work Phone: [facility] 11-26-2023 10:55-0500 Body weight 68.13 kg Tania Doe MD Work Phone: [facility] 11-26-2023 10:55-0500 Diastolic blood pressure 78 mm[Hg] Tania Doe MD Work Phone: [facility] 11-26-2023 10:55-0500 Systolic blood pressure 120 mm[Hg] Tania Doe MD Work Phone: [facility] 11-17-2023 10:19-0500 Body weight 67.13 kg Urban Burnett MD Work Phone: [facility] 11-17-2023 10:19-0500 Diastolic blood pressure 58 mm[Hg] Urban Burnett MD Work Phone: [facility] 11-17-2023 10:19-0500 Systolic blood pressure 102 mm[Hg] Urban Burnett MD Work Phone: [facility] 07-06-2023 15:57-0400 Body height 167.6 cm Berta Plotts ANVIL WORKER.CNM Work Phone: [facility] 07-06-2023 15:57-0400 Body weight 64.23 kg Berta Plotts ANVIL WORKER.CNM Work Phone: [facility] 07-06-2023 15:57-0400 Diastolic blood pressure 62 mm[Hg] Berta Plotts ANVIL WORKER.CNM Work Phone: [facility] 07-06-2023 15:57-0400 Systolic blood pressure 108 mm[Hg] Berta Plotts ANVIL WORKER.CNM Work Phone: [facility] 03-12-2023 20:43-0400 Heart rate 105 /min [facility] 03-12-2023 20:43-0400 Respiratory rate 15 /min [facility] 03-12-2023 20:43-0400 SaO2% (BldA) [Mass fraction] 100 % [facility] 03-12-2023 16:37-0400 Body height 170.18 cm [facility] 03-12-2023 16:37-0400 Body mass index (BMI) [Ratio] 22.5 kg/m2 [facility] 03-12-2023 16:37-0400 Body temperature 97.1 [degF] [facility] 03-12-2023 16:37-0400 Body weight 65.18 kg [facility] 03-12-2023 16:37-0400 Diastolic blood pressure 99 mm[Hg] [facility] 03-12-2023 16:37-0400 Systolic blood pressure 130 mm[Hg] [facility] 01-16-2023 06:23-0400 Diastolic blood pressure 68 mm[Hg] [facility] 01-16-2023 06:23-0400 Heart rate 72 /min [facility] 01-16-2023 06:23-0400 Respiratory rate 18 /min [facility] 01-16-2023 06:23-0400 SaO2% (BldA) [Mass fraction] 98 % [facility] 01-16-2023 06:23-0400 Systolic blood pressure 135 mm[Hg] [facility] 01-16-2023 05:14-0400 Body height 170.18 cm [facility] 01-16-2023 05:14-0400 Body mass index (BMI) [Ratio] 25.8 kg/m2 [facility] 01-16-2023 05:14-0400 Body temperature 97.3 [degF] [facility] 01-16-2023 05:14-0400 Body weight 74.9 kg [facility] 12-26-2022 14:53-0400 Body weight 77.2 kg Amarilis Kristi ANVIL WORKER.COST CONSULTANT Work Phone: [facility] 12-26-2022 14:53-0400 Diastolic blood pressure 80 mm[Hg] Amarilis Oran ANVIL WORKER.COST CONSULTANT Work Phone: [facility] 12-26-2022 14:53-0400 Systolic blood pressure 110 mm[Hg] Amarilis Berry APRN.COST CONSULTANT Work Phone: [facility] 12-14-2022 14:51-0500 Body mass index (BMI) [Ratio] 26.7 kg/m2 [facility] 12-14-2022 14:51-0500 Body temperature 98.9 [degF] [facility] 12-14-2022 14:51-0500 Body weight 77.5 kg [facility] 12-14-2022 14:51-0500 Diastolic blood pressure 111 mm[Hg] [facility] 12-14-2022 14:51-0500 Heart rate 105 /min [facility] 12-14-2022 14:51-0500 Respiratory rate 18 /min [facility] 12-14-2022 14:51-0500 SaO2% (BldA) [Mass fraction] 98 % [facility] 12-14-2022 14:51-0500 Systolic blood pressure 126 mm[Hg] [facility] 11-10-2022 10:19-0500 Body height 167.6 cm Elsa Bro MD Work Phone: [facility] 11-10-2022 10:19-0500 Body temperature 97.2 [degF] Elsa Bro MD Work Phone: [facility] 11-10-2022 10:19-0500 Body weight 82.56 kg Elsa Bro MD Work Phone: [facility] 11-10-2022 10:19-0500 Diastolic blood pressure 70 mm[Hg] Elsa Bro MD Work Phone: [facility] 11-10-2022 10:19-0500 Heart rate 94 /min Elsa Bro MD Work Phone: [facility] 11-10-2022 10:19-0500 Respiratory rate 14 /min Elsa Bro MD Work Phone: [facility] 11-10-2022 10:19-0500 SaO2% (BldA) [Mass fraction] 98 % Elsa Bro MD Work Phone: [facility] 11-10-2022 10:19-0500 Systolic blood pressure 122 mm[Hg] Elsa Bro MD Work Phone: [facility] 11-09-2022 13:09-0500 Body temperature 97.9 [degF] Krislyn Aberegg PA Work Phone: [facility] 11-09-2022 13:09-0500 Body weight 83.46 kg Krislyn Aberegg PA Work Phone: [facility] 11-09-2022 13:09-0500 Diastolic blood pressure 88 mm[Hg] Krislyn Aberegg PA Work Phone: [facility] 11-09-2022 13:09-0500 Heart rate 98 /min Krislyn Aberegg PA Work Phone: [facility] 11-09-2022 13:09-0500 Respiratory rate 16 /min Krislyn Aberegg PA Work Phone: [facility] 11-09-2022 13:09-0500 SaO2% (BldA) [Mass fraction] 98 % Krislyn Aberegg PA Work Phone: [facility] 11-09-2022 13:09-0500 Systolic blood pressure 134 mm[Hg] Krislyn Aberegg PA Work Phone: [facility] 11-06-2022 18:01-0500 Body temperature 97.7 [degF] LEILA TOMLINSON MD [facility] 11-06-2022 18:01-0500 Diastolic Blood Pressure Non-Invasive 75 1 LEILA TOMLINSON MD [facility] 11-06-2022 18:01-0500 Heart rate 102 /min LEILA TOMLINSON MD [facility] 11-06-2022 18:01-0500 Respiratory rate 22 /min LEILA TOMLINSON MD [facility] 11-06-2022 18:01-0500 Systolic Blood Pressure Non-Invasive 124 1 LEILA TOMLINSON MD [facility] 08-29-2022 09:06-0500 Body weight 87.82 kg Amarilis Oran ANVIL WORKER.COST CONSULTANT Work Phone: [facility] 08-29-2022 09:06-0500 Diastolic blood pressure 80 mm[Hg] Amarilis Kristi ANVIL WORKER.COST CONSULTANT Work Phone: [facility] 08-29-2022 09:06-0500 Systolic blood pressure 124 mm[Hg] Amarilis Oran ANVIL WORKER.COST CONSULTANT Work Phone: [facility] 07-01-2022 10:41-0400 Body height 167.6 cm Berta Plotts ANVIL WORKER.CNM Work Phone: [facility] 07-01-2022 10:41-0400 Body weight 84.82 kg Berta Plotts ANVIL WORKER.CNM Work Phone: [facility] 07-01-2022 10:41-0400 Diastolic blood pressure 70 mm[Hg] Berta Plotts ANVIL WORKER.CNM Work Phone: [facility] 07-01-2022 10:41-0400 Systolic blood pressure 110 mm[Hg] Berta Plotts ANVIL WORKER.CNM Work Phone: [facility] 06-23-2022 14:41-0400 Body temperature 97.11 [degF] Tyler Salmon ANVIL WORKER.COST CONSULTANT Work Phone: [facility] 06-23-2022 14:41-0400 Body weight 83.46 kg Tyler Salmon ANVIL WORKER.COST CONSULTANT Work Phone: [facility] 06-23-2022 14:41-0400 Diastolic blood pressure 82 mm[Hg] Tyler Salmon ANVIL WORKER.COST CONSULTANT Work Phone: [facility] 06-23-2022 14:41-0400 Heart rate 107 /min Tyler Salmon ANVIL WORKER.COST CONSULTANT Work Phone: [facility] 06-23-2022 14:41-0400 Respiratory rate 18 /min Tyler Salmon ANVIL WORKER.COST CONSULTANT Work Phone: [facility] 06-23-2022 14:41-0400 SaO2% (BldA) [Mass fraction] 98 % Tyler Salmon ANVIL WORKER.COST CONSULTANT Work Phone: [facility] 06-23-2022 14:41-0400 Systolic blood pressure 118 mm[Hg] Tyler Salmon ANVIL WORKER.COST CONSULTANT Work Phone: [facility] 06-14-2022 20:36-0400 Body height 170.18 cm [facility] Work Phone: 06-14-2022 20:36-0400 Body mass index (BMI) [Ratio] 29 kg/m2 [facility] Work Phone: 06-14-2022 20:36-0400 Body temperature 96.6 [degF] [facility] Work Phone: 06-14-2022 20:36-0400 Body weight 83.91 kg [facility] Work Phone: 06-14-2022 20:36-0400 Diastolic blood pressure 93 mm[Hg] [facility] Work Phone: 06-14-2022 20:36-0400 Heart rate 90 /min [facility] Work Phone: 06-14-2022 20:36-0400 Respiratory rate 18 /min [facility] Work Phone: 06-14-2022 20:36-0400 SaO2% (BldA) [Mass fraction] 98 % [facility] Work Phone: 06-14-2022 20:36-0400 Systolic blood pressure 129 mm[Hg] [facility] Work Phone: 05-08-2022 15:14-0400 Body temperature 97.59 [degF] Linda Praisler-Wood ANVIL WORKER.COST CONSULTANT Work Phone: [facility] 05-08-2022 15:14-0400 Body weight 83.55 kg Linda Praisler-Wood ANVIL WORKER.[facility] Work Phone: [facility] 05-08-2022 15:14-0400 Diastolic blood pressure 64 mm[Hg] Linda Praisler-Wood ANVIL WORKER.COST CONSULTANT Work Phone: [facility] 05-08-2022 15:14-0400 Heart rate 97 /min Linda Praisler-Wood ANVIL WORKER.[facility] Work Phone: [facility] 05-08-2022 15:14-0400 Respiratory rate 16 /min Linda Praisler-Wood ANVIL WORKER.[facility] Work Phone: [facility] 05-08-2022 15:14-0400 SaO2% (BldA) [Mass fraction] 99 % Linda Praisler-Wood ANVIL WORKER.[facility] Work Phone: [facility] 05-08-2022 15:14-0400 Systolic blood pressure 110 mm[Hg] Linda Praisler-Wood ANVIL WORKER.[facility] Work Phone: [facility] 05-08-2022 00:51-0400 Body height 162.56 cm [facility] Work Phone: 05-08-2022 00:51-0400 Body mass index (BMI) [Ratio] 30.9 kg/m2 [facility] Work Phone: 05-08-2022 00:51-0400 Body temperature 97.6 [degF] [facility] Work Phone: 05-08-2022 00:51-0400 Body weight 81.64 kg [facility] Work Phone: 05-08-2022 00:51-0400 Diastolic blood pressure 73 mm[Hg] [facility] Work Phone: 05-08-2022 00:51-0400 Heart rate 85 /min [facility] Work Phone: 05-08-2022 00:51-0400 Respiratory rate 16 /min [facility] Work Phone: 05-08-2022 00:51-0400 SaO2% (BldA) [Mass fraction] 98 % [facility] Work Phone: 05-08-2022 00:51-0400 Systolic blood pressure 123 mm[Hg] [facility] Work Phone: 03-31-2022 12:24-0400 Heart rate 84 /min Ibis Bogner PA-C Work Phone: [facility] 03-31-2022 12:17-0400 Body temperature 98.1 [degF] Ibis Bogner PA-C Work Phone: [facility] 03-31-2022 12:17-0400 Body weight 82.56 kg Ibis Bogner PA-C Work Phone: [facility] 03-31-2022 12:17-0400 Diastolic blood pressure 72 mm[Hg] Ibis Bogner PA-C Work Phone: [facility] 03-31-2022 12:17-0400 Respiratory rate 16 /min Ibis Bogner PA-C Work Phone: [facility] 03-31-2022 12:17-0400 SaO2% (BldA) [Mass fraction] 99 % Ibis Bogner PA-C Work Phone: [facility] 03-31-2022 12:17-0400 Systolic blood pressure 132 mm[Hg] Ibis Bogner PA-C Work Phone: [facility] 02-06-2022 12:34-0400 Body temperature 97.9 [degF] Binta Hathaway APRN.CNP Work Phone: [facility] 02-06-2022 12:34-0400 Body weight 81.01 kg Binta Hathaway ANVIL WORKER.COST CONSULTANT Work Phone: [facility] 02-06-2022 12:34-0400 Diastolic blood pressure 68 mm[Hg] Binta Hathaway ANVIL WORKER.COST CONSULTANT Work Phone: [facility] 02-06-2022 12:34-0400 Heart rate 70 /min Binta Hathaway ANVIL WORKER.COST CONSULTANT Work Phone: [facility] 02-06-2022 12:34-0400 Respiratory rate 18 /min Binta Hathaway ANVIL WORKER.COST CONSULTANT Work Phone: [facility] 02-06-2022 12:34-0400 SaO2% (BldA) [Mass fraction] 99 % Binta Hathaway ANVIL WORKER.COST CONSULTANT Work Phone: [facility] 02-06-2022 12:34-0400 Systolic blood pressure 122 mm[Hg] Binta Hathaway ANVIL WORKER.COST CONSULTANT Work Phone: [facility] 01-13-2022 14:28-0400 Body temperature 98.8 [degF] Lg Rene MD Work Phone: [facility] 01-13-2022 14:28-0400 Body weight 81.19 kg Lg Rene MD Work Phone: [facility] 01-13-2022 14:28-0400 Diastolic blood pressure 60 mm[Hg] Lg Rene MD Work Phone: [facility] 01-13-2022 14:28-0400 Heart rate 110 /min Lg Rene MD Work Phone: [facility] 01-13-2022 14:28-0400 Respiratory rate 16 /min Lg Rene MD Work Phone: [facility] 01-13-2022 14:28-0400 SaO2% (BldA) [Mass fraction] 97 % Lg Rene MD Work Phone: [facility] 01-13-2022 14:28-0400 Systolic blood pressure 122 mm[Hg] Lg Rene MD Work Phone: [facility] Encounters Encounter Date Encounter Type Care Provider Facility Start: 08-22-2025 End: 08-22-2025 Emergency department patient visit Sudhir Marcus Facility:[facility] Start: 08-18-2025 End: 08-18-2025 Emergency department patient visit Ridge Perez Facility:[facility] Start: 08-18-2025 End: 08-18-2025 [facility] Facility:[facility] Start: 07-25-2025 End: 07-25-2025 [facility] Facility:[facility] Start: 07-14-2025 End: 07-14-2025 [facility] Facility:[facility] Start: 05-29-2025 End: 06-02-2025 Refill Ruthie Luna MD Work Phone: Endocrinology Comment on above: Refill Request Start: 05-08-2025 End: 05-08-[facility] Start: 05-08-2025 End: 05-08-2025 Periodic preventive med est patient 18-39 yrs Kelli Boyle ANVIL WORKER.COST CONSULTANT Work Phone: [facility] [place] Comment on above: Annual physical exam (Primary Dx); Hypothyroidism, unspecified type; Heat intolerance; Diarrhea, unspecified type; Nausea; Other fatigue Start: 05-08-2025 End: 05-08-2025 [facility] Facility:[facility] Start: 05-08-2025 End: 05-08-2025 Patient encounter procedure Kelli Boyle ANVIL WORKER.COST CONSULTANT Work Phone: [facility] Work Phone: Start: 04-24-2025 End: 04-24-2025 Patient encounter procedure Binta Hathaway ANVIL WORKER.COST CONSULTANT Work Phone: [facility] [place] Comment on above: Nausea and vomiting, unspecified vomiting type (Primary Dx); Encounter to obtain excuse from work Start: 04-24-2025 End: 04-24-2025 [facility] Facility:[facility] Start: 04-15-2025 End: 04-15-2025 Emergency department patient visit Dr. Tremayne Quiñonez MD Work Phone: -Emergency Department Work Phone: Start: 03-22-2025 End: 03-22-2025 Patient encounter procedure Karina Kwong MD Work Phone: OB/Gynecology Comment on above: Nexplanon removal (P rimary Dx) Start: 03-22-2025 End: 03-22-2025 [facility] Facility:[facility] Start: 03-10-2025 End: 03-10-2025 Patient encounter procedure Ruthie Luna MD Work Phone: Endocrinology Comment on above: Acquired hypothyroid ism (Primary Dx) Start: 03-10-2025 End: 03-10-2025 [facility] Facility:[facility] Start: 03-10-2025 End: 03-10-2025 Telephone encounter Karina Kwong MD Work Phone: OB/Gynecology Comment on above: Orders Start: 02-22-2025 End: 02-22-2025 Patient encounter procedure Binta Carcamo APRN.CNM Work Phone: OB/Gynecology Comment on above: Hypothyroidism, unsp ecified type; Vulvar pruritus; Presence of subdermal contraceptive implant Start: 02-22-2025 End: 02-22-2025 [facility] Facility:[facility] Start: 02-16-2025 End: 02-17-2025 Refill Ruthie Luna MD Work Phone: Endocrinology Comment on above: Refill Request Start: 02-02-2025 End: 02-06-2025 Follow-up encounter Ruthie Luna MD Work Phone: Endocrinology Start: 01-12-2025 End: 01-12-2025 Follow-up encounter Reagan Campos APRN.COST CONSULTANT Work Phone: OB/Gynecology Start: 01-12-2025 End: 01-12-2025 [facility] Facility:[facility] Start: 01-12-2025 End: 01-12-2025 Patient encounter procedure Reagan Campos APRN.COST CONSULTANT Work Phone: OB/Gynecology Comment on above: Vaginal discharge (P rimary Dx); Vaginal itching; Recurrent genital herpes Start: 12-30-2024 End: 12-30-2024 [facility] Facility:[facility] Start: 12-04-2024 End: 12-04-2024 [facility] Facility:[facility] Start: 12-04-2024 End: 12-04-2024 Patient encounter procedure Feli Winston APRN.COST CONSULTANT Work Phone: [facility] Comment on above: Vaginal yeast infect ion (Primary Dx); Viral illness Start: 11-22-2024 End: 11-22-2024 [facility] Facility:[facility] Start: 11-22-2024 End: 11-22-2024 Patient encounter procedure Ruthie Luna MD Work Phone: Endocrinology Comment on above: Acquired hypothyroid ism (Primary Dx); Elevated TSH Start: 11-18-2024 End: 11-18-2024 [facility] Facility:[facility] Start: 11-18-2024 End: 11-18-2024 Patient encounter procedure Tyler Salmon APRN.COST CONSULTANT Work Phone: [facility] Comment on above: Diarrhea, unspecifie d type (Primary Dx); Dysfunction of left eustachian tube Start: 10-31-2024 End: 10-31-2024 [facility] Facility:[facility] Start: 10-30-2024 End: 10-30-2024 [facility] Facility:[facility] Start: 10-30-2024 End: 10-30-2024 Patient encounter procedure Binta Hathaway APRN.COST CONSULTANT Work Phone: [facility] Comment on above: Acute otitis media, left (Primary Dx); COVID-19 Start: 10-26-2024 End: 10-27-2024 Telephone encounter Binta Carcamo APRN.CNM Work Phone: OB/Gynecology Comment on above: Results Start: 10-25-2024 End: 10-25-2024 [facility] Facility:[facility] Start: 10-25-2024 End: 10-25-2024 Patient encounter procedure Binta Carlos Alberto VO.CNM Work Phone: OB/Gynecology Comment on above: Breakthrough bleedin g on Nexplanon (Primary Dx) Start: 10-07-2024 End: 10-07-2024 Refill Karina Kwong MD Work Phone: OB/Gynecology Comment on above: Refill Request Start: 09-27-2024 End: 09-27-2024 Telephone encounter Urban Burnett MD Work Phone: OB/Gynecology Comment on above: Results Start: 09-13-2024 End: 09-13-2024 [facility] Start: 09-13-2024 End: 09-13-2024 Office outpatient visit 15 minutes Karina Kwong MD Work Phone: OB/Gynecology Comment on above: Vaginal discharge (P rimary Dx) Start: 09-07-2024 End: 09-07-2024 Telephone encounter Reagan Campos APRN.COST CONSULTANT Work Phone: OB/Gynecology Comment on above: HSV Start: 09-02-2024 End: 09-02-2024 Telephone encounter Reagan Campos APRN.COST CONSULTANT Work Phone: OB/Gynecology Comment on above: Patient Question Start: 08-30-2024 End: 09-01-2024 Telephone encounter Urban Burnett MD Work Phone: OB/Gynecology Comment on above: Results Start: 08-29-2024 End: 08-29-2024 [facility] Start: 08-29-2024 End: 08-29-2024 Patient encounter procedure Reagan Campos APRN.COST CONSULTANT Work Phone: OB/Gynecology Comment on above: Screen [...] 06-14-2024 End: 06-14-2024 Telephone encounter Binta Carcamo APRN.CNYuki Work Phone: OB/Gynecology Comment on above: Refill Request Start: 06-06-2024 End: 06-06-2024 Refill Berta Eldridge APRN.CNM Work Phone: OB/Gynecology Comment on above: Refill Request Start: 05-16-2024 End: 05-16-2024 Patient encounter procedure Berta Eldridge APRN.CNYuki Work Phone: OB/Gynecology Comment on above: Care and examination of lactating mother (Primary Dx); Elevated blood pressure reading; BP check; 2 weeks follow-up Start: 05-16-2024 End: 05-16-2024 Patient encounter status Berta Eldridge APRN.CNYuki Work Phone: [facility] Start: 05-13-2024 Telephone encounter Berta yeh APRN.CNYuki Work Phone: OB/Gynecology Comment on above: Elevated BP Start: 05-11-2024 End: 05-11-2024 Patient encounter procedure Berta Eldridge APRN.CNYuki Work Phone: OB/Gynecology Comment on above: Pre-eclampsia in thi rd trimester (Primary Dx); Care and examination of lactating mother; Elevated blood pressure reading; BP check Start: 05-11-2024 End: 06-24-2024 Patient encounter status Berta Eldridge APRN.CNYuki Work Phone: [facility] Start: 05-11-2024 Telephone encounter Urban Burnett MD [...] Patient encounter procedure Valentine LOVE Work Phone: [facility] Comment on above: Eustachian tube dysf unction, bilateral (Primary Dx) Start: 04-29-2024 End: 04-29-2024 Patient encounter procedure Production Operations Inspector [facility] Work Phone: OB/Gynecology Comment on above: [...] Start: 04-01-2024 End: 04-01-2024 Patient encounter procedure Production Operations Inspector [facility] Work Phone: OB/Gynecology Comment on [...] in third trimester Start: 03-17-2024 Telephone encounter Watch Case Polisher RN Maternal Medicine Comment on above: Results Start: 03-16-2024 End: 03-16-2024 Patient encounter procedure Berta Eldridge APRN.CNM Work Phone: OB/Gynecology Comment on above: 29 weeks gestation o f (Primary Dx); Need for vaccination; Supervision of high risk in second trimester; Gastroesophageal reflux disease without esophagitis Start: 03-01-2024 Refill Binta Carcamo APRN.CNM Work Phone: OB/Gynecology [...] (sexually transmitted disease) Start: 02-03-2024 Telephone encounter Watch Case Polisher RN Maternal Medicine Comment on above: Watch Case Polisher - O ther (PRAF) Start: 02-02-2024 End: [...] OB/Gynecology Start: 01-13-2024 Telephone encounter Berta yeh ANVIL WORKER.CNM Work Phone: OB/Gynecology Start: 01-05-2024 End: 01-05-2024 [...] 12-03-2023 ambulatory Telma Fraser RN NURS E MEDICAL LAB SPECIALIST Comment on above: Patient Update Start: 12-01-2023 Telephone encounter Binta navarro ANVIL WORKER.CNM Work Phone: OB/Gynecology Comment on above: Medication [...] End: 07-06-2023 Patient encounter procedure Berta Eldridge ANVIL WORKER.CNM Work Phone: OB/Gynecology Comment on above: Encounter for gyneco logical examination (general) (routine) without abnormal findings (Primary Dx); Recurrent cold sores; Screening for STDs (sexually transmitted diseases) Start: 07-06-2023 End: 07-06-2023 Patient encounter status Berta Eldridge ANVIL WORKER.CNM Work Phone: [facility] Start: 03-12-2023 End: 03-12-2023 Emergency department patient visit [facility] Start: 01-16-2023 End: 01-16-2023 Emergency department patient visit [facility] Start: 12-29-2022 Telephone encounter Amarilis arevalo ANVIL WORKER.COST CONSULTANT Work Phone: OB/Gynecology Comment on above: Results Start: 12-27-2022 ambulatory Amarilis Berry ANVIL WORKER.COST CONSULTANT Work Phone: OB/Gynecology Comment on above: Question regarding C ANDIDA / TRICHOMONAS AMPLIFICATION Start: 12-26-2022 End: 12-26-2022 Patient encounter procedure Amarilis Berry ANVIL WORKER.COST CONSULTANT Work Phone: OB/Gynecology Comment on above: Dysuria (Primary Dx) ; Screen for STD (sexually transmitted disease) Start: 12-14-2022 End: 12-14-2022 [facility] Start: 11-10-2022 End: 11-10-2022 Patient encounter procedure Elsa Bro MD Work Phone: [facility] [place] Comment on above: Swelling of both morgan ds (Primary Dx) Start: 11-09-2022 End: 11-09-2022 Patient encounter procedure Valentine LOVE Work Phone: [facility] Comment on above: Scabies (Primary Dx) ; Swelling of both hands Start: 11-06-2022 End: 11-06-2022 Emergency department patient visit LEILA TOMLINSON MD Facility:[facility] Start: 11-06-2022 End: 11-06-2022 Emergency department patient visit LEILA TOMLINSON MD [facility] Start: 08-29-2022 End: 08-29-2022 Patient encounter procedure Amarilis Berry ANVIL WORKER.COST CONSULTANT Work Phone: OB/Gynecology Comment on above: Encounter for Nexpla non removal (Primary Dx) Start: 07-31-2022 Refill Binta Carcamo APRN.CNM Work Phone: OB/Gynecology Comment on above: Refill Request Start: 07-02-2022 Telephone encounter Binta navarro ANVIL WORKER.CNM Work Phone: OB/Gynecology Comment on above: Results Start: 07-01-2022 End: 07-01-2022 Patient encounter procedure Berta Eldridge ANVIL WORKER.CNYuki Work Phone: OB/Gynecology Comment on above: Encounter for gyneco logical examination (general) (routine) without abnormal findings (Primary Dx); Screening for cervical cancer; Encounter for screening for human papillomavirus (HPV); Screen for STD (sexually transmitted disease); Nexplanon removal; Insertion of Nexplanon Start: 07-01-2022 End: 07-01-2022 Patient encounter status Berta Eldridge APRN.NOE Work Phone: OB/Gynecology Start: 06-26-2022 Telephone encounter Alexandra velasco APRN.COST CONSULTANT Work Phone: OB/Gynecology Comment on above: Appointment (Provide r wants patient to have Annual Exam first. Appointment was changed to Annual. Called patient to inform her the appointment was changed. No answer or voicemail.) Start: 06-23-2022 End: 06-23-2022 Patient encounter procedure Tyler Salmon APRN.COST CONSULTANT Work Phone: [facility] Comment on above: Sore throat (Primary Dx); Toothache; Feared condition not demonstrated Start: 06-14-2022 End: 06-14-2022 [facility] Start: 05-08-2022 End: 05-08-2022 Patient encounter procedure Linda Felton APRN.COST CONSULTANT Work Phone: [facility] Comment on above: Throat pain in adult (Primary Dx); Swollen tonsil Start: 05-08-2022 End: 05-08-2022 [facility] Start: 03-31-2022 End: 03-31-2022 Office outpatient visit 15 minutes Ibis Dunne PA-C Work Phone: [facility] Comment on above: Sore throat (Primary Dx) Start: 02-06-2022 End: 02-06-2022 Patient encounter procedure Binta Hathaway APRN.COST CONSULTANT Work Phone: [facility] Comment on above: Dermatitis (Primary Dx); Aphthous ulcer of mouth Start: 01-13-2022 End: 01-13-2022 Patient encounter procedure Lg Rene MD Work Phone: [facility] Comment on above: Rash (Primary Dx) Start: 07-28-2021 Patient encounter procedure Alexander Andrew MD Work Phone: [facility] Start: 07-28-2021 Progress Note Alexander rose MD Work Phone: [facility] Start: 03-30-2019 End: 03-30-2019 Emergency department patient visit FANNY ISRAEL [facility] Procedures Date Procedure Procedure Detail Performing Clinician Start: 07-22-2024 Urnls dip stick/tabl et rgnt auto w/o microscopy Tania Doe MD Work Phone: Start: 05-06-2024 URINE OB DIP B/O Michelle Burnett MD Work Phone: Start: 04-29-2024 Us preg uterus after 1st trimest 10/12 gestation Berta Caceresraheem ANVIL WORKER.CNM Work Phone: Start: 04-29-2024 URINE OB DIP B/O Reagan Mathuraaron ANVIL WORKER.COST CONSULTANT Work Phone: Start: 04-19-2024 URINE OB DIP B/O Rossana rodriguez Carlos Alberto ANVIL WORKER.CNM Work Phone: Start: 04-01-2024 Us preg uterus after 1st trimest 10/12 gestation Berta Eldridge ANVIL WORKER.CNM Work Phone: Start: 02-17-2024 BACTERIAL VAGINOSIS NAAT Dex Montesinos MD Work Phone: Start: 02-17-2024 Iadna chlamydia trachomatis amplified probe tq Dex Montesinos MD Work Phone: Start: 02-02-2024 Smr prim src gram/gi emsa stain bct fungi/cell Mihir Albright MD Work Phone: Start: 01-05-2024 Us preg uterus after 1st trimest 10/12 gestation Urban Burnett MD Work Phone: Start: 11-26-2023 URINE OB DIP B/O Taina Doe MD Work Phone: Start: 11-17-2023 URINE OB DIP B/O Michelle Burnett MD Work Phone: Start: 07-06-2023 BACTERIAL VAGINOSIS NAAT Berta Eldridge ANVIL WORKER.CNM Work Phone: Start: 07-06-2023 Iadna chlamydia trachomatis amplified probe tq Berta Eldridge ANVIL WORKER.CNM Work Phone: Start: 12-26-2022 Urnls dip stick/tabl et rgnt auto w/o microscopy Amarilis Berry ANVIL WORKER.COST CONSULTANT Work Phone: Start: 06-23-2022 STREP A MOLECULAR (POC) [facility] Provider Start: 03-31-2022 End: 03-31-2022 STREP A MOLECULAR (POC) Ibis quick PA-C Work Phone: None (qualifier value) LEILA TOMLINSON MD SARS-CoV-2 & FLU Ant igen (Rapid) Urine culture Urine culture Plan of Treatment Date Care Activity Detail Author Start: 03-16-2034 Urine microalbumin profile DTaP,Tdap,Td Vaccine (8 - Td or Tdap) [facility] Start: 06-24-2027 Screening for malign ant neoplasm of cervix Cervical Cancer Screening [facility] Start: 05-08-2026 Annual PCP Team Cad Intern jevon Disease Visit Annual PCP Team Chronic Disease Visit [facility] Start: 08-23-2025 End: 11-22-2025 Thyrotropin [Units/volume] in Serum or Plasma THYROID STIMULATING HORMONE Lab Routine Acquired hypothyroidism Expected: 08/23/2025, Expires: 11/22/2025 [facility] Work Phone: Comment on above: Expected: 08/23/2025 , Expires: 11/22/2025 Start: 08-23-2025 End: 11-22-2025 Thyroxine (T4) free [Mass/volume] in Serum or Plasma T4 FREE/FREE THYROXINE Lab Routine Acquired hypothyroidism Expected: 08/23/2025, Expires: 11/22/2025 [facility] Comment on above: Expected: 08/23/2025 , Expires: 11/22/2025 Start: 08-21-2025 End: 08-21-2025 Patient encounter procedure 08/21/2025 2:00 PM EST Office Visit Endocrinology [address] [place] [address] Ruthie Luna MD [address] [place] [address] 6 MTH F/U HYPOTHYROIDISM Endocrinology Comment on above: 6 MTH F/U HYPOTHYROI DISM Start: 07-01-2025 PAP TESTING PAP TESTING [facility] Start: 07-01-2025 Screening for malign ant neoplasm of cervix [facility] Start: 06-26-2025 End: 06-26-2025 Patient encounter procedure 06/26/2025 2:20 PM EDT Office Visit OB/Gynecology [address] [place] [address] Mildred Larkin MD [address] [place] [address] Annual OB/Gynecology Comment on above: Annual Start: 06-12-2025 Influenza vaccination [facility] Start: 04-15-2025 [facility] Start: 04-15-2025 Streptococcus pyogen es (PCR) Streptococcus pyogenes (PCR) [facility] Start: 03-22-2025 End: 03-22-2025 Patient encounter procedure 03/22/2025 3:20 PM EDT Office Visit OB/Gynecology [address] [place] [address] Karina Kwong MD [address] [place] [address] Nexplanon removal OB/Gynecology Comment on above: Nexplanon removal Start: 03-03-2025 End: 03-03-2025 Patient encounter procedure 03/03/2025 11:40 AM EDT Office Visit Endocrinology [address] [place] [address] Ruthie Luna MD [address] [address] 2 MTH F/U Endocrinology Comment on above: 2 MTH F/U Start: 02-22-2025 End: 02-22-2025 Patient encounter procedure 02/22/2025 1:45 PM EDT Office Visit OB/Gynecology [address] [place] [address] Binta Carcamo APRN.CNM [address] [place] [address] 4 month f/u OB/Gynecology Comment on above: 4 month f/u Start: 01-24-2025 End: 01-24-2025 Patient encounter procedure 01/24/2025 1:40 PM EDT Office Visit Endocrinology [address] [place] [address] Ruthie Luna MD [address] [place] [address] 2 MTH F/U Endocrinology Comment on above: 2 MTH F/U Start: 01-20-2025 End: 01-20-2025 ambulatory 01/20/2025 2:00 PM EDT Results Only [facility] [address] [place] [address] LABS [place] [facility] Comment on above: LABS Start: 01-12-2025 End: 04-13-2025 Comprehensive metabolic 2000 panel - Serum or Plasma [facility] Work Phone: Comment on above: Expected: 01/12/2025 , Expires: 04/13/2025 Start: 11-22-2024 End: 02-21-2025 Thyrotropin [Units/volume] in Serum or Plasma THYROID STIMULATING HORMONE Lab Routine Acquired hypothyroidism Expected: 11/22/2024, Expires: 02/21/2025 [facility] Work Phone: Comment on above: Expected: 11/22/2024 , Expires: 02/21/2025 Start: 11-22-2024 End: 02-21-2025 Thyroxine (T4) free [Mass/volume] in Serum or Plasma T4 FREE/FREE THYROXINE Lab Routine Acquired hypothyroidism Expected: 11/22/2024, Expires: 02/21/2025 [facility] Comment on above: Expected: 11/22/2024 , Expires: 02/21/2025 Start: 11-22-2024 End: 11-22-2024 Patient encounter procedure 11/22/2024 8:00 AM EST Office Visit Endocrinology [address] [place] [address] Ruthie Luna MD [address] [place] [address] Elevated TSH [R79.89] Endocrinology Comment on above: Elevated TSH [R79.89 ] Start: 10-31-2024 End: 10-31-2024 ambulatory 10/31/2024 1:00 PM EST Results Only [place] [facility] [address] [place] [address] THYROID PEROXIDASE ANTIBODY [facility] Comment on above: THYROID PEROXIDASE A NTIBODY Start: 10-27-2024 End: 01-26-2025 THYROID PEROXIDASE ANTIBODY THYROID PEROXIDASE ANTIBODY Lab Routine Elevated TSH Expected: 10/27/2024, Expires: 01/26/2025 [facility] Comment on above: Expected: 10/27/2024 , Expires: 01/26/2025 Start: 10-27-2024 End: 01-26-2025 Thyroxine (T4) free [Mass/volume] in Serum or Plasma [facility] Work Phone: Comment on above: Expected: 10/27/2024 , Expires: 01/26/2025 Start: 10-25-2024 End: 01-24-2025 Thyrotropin [Units/volume] in Serum or Plasma [facility] Work Phone: Comment on above: Expected: 10/25/2024 , Expires: 01/24/2025 Start: 08-29-2024 End: 11-28-2024 HERPES SIMPLEX IGM, WITH REFLEX IGG ABS [facility] Comment on above: Expected: 08/29/2024 , Expires: 11/28/2024 Start: 08-29-2024 End: 11-28-2024 Herpes simplex virus+Varicella zoster virus DNA [Presence] in Unspecified specimen by JOSE with probe detection [facility] Work Phone: Comment on above: Expected: 08/29/2024 , Expires: 11/28/2024 Start: 06-24-2024 End: 06-24-2024 Patient encounter procedure 06/24/2024 1:40 PM EDT Office Visit OB/Gynecology [address] [place], [place] [address] Mihir Albright MD [address] [place] [address] 6 week OB/Gynecology Comment on above: 6 week Start: 06-12-2024 Covid-19 Vaccine ( season) Covid-19 Vaccine ( season) [facility] Start: 06-12-2024 Covid-19 Vaccine ( season) Covid-19 Vaccine () [facility] Start: 06-12-2024 Influenza vaccination [facility] Start: 05-25-2024 End: 05-25-2024 Patient encounter procedure 05/25/2024 1:40 PM EDT Routine Office Visit OB/Gynecology [address] [place] [address] Karina Kwong MD [address] [place] [address] OB OB/Gynecology Comment on above: OB Start: 05-20-2024 End: 05-20-2024 Patient encounter procedure 05/20/2024 1:40 PM EDT Routine Office Visit OB/Gynecology [address] [place] [address] Karina Kwong MD [address] [place] [address] OB OB/Gynecology Comment on above: OB Start: 05-16-2024 End: 05-16-2024 Patient encounter procedure 05/16/2024 4:00 PM EDT Office Visit OB/Gynecology [address] [place] [address] Berta Eldridge APRN.CNM [address] [place] [address] BP check OB/Gynecology Comment on above: BP check Start: 05-13-2024 End: 05-13-2024 Patient encounter procedure 05/13/2024 1:15 PM EDT Routine Office Visit OB/Gynecology [address] [place] [address] Berta Eldridge APRN.CNM [address] [place] [address] OB OB/Gynecology Comment on above: OB Start: [...] diagnosis of hypertension Expected: 04/19/2024, Expires: 07/19/2024 [facility] Work Phone: Comment on above: Expected: 04/19/2024 , Expires: 07/19/2024 Start: 04-12-2024 End: 04-12-2024 Patient encounter procedure 04/12/2024 1:30 PM EDT Routine Office Visit OB/Gynecology [address] [place] [address] Mihir Albright MD [address] [place] [address] OB OB/Gynecology Comment on above: OB Start: 04-12-2024 End: 04-12-2024 ambulatory 04/12/2024 1:15 PM EDT Results Only [place] [facility] [address] [place] [address] [facility] Comment on above: labs Start: 04-01-2024 End: 04-01-2024 Patient encounter procedure 04/01/2024 1:00 PM EDT Routine Office Visit OB/Gynecology [address] [place] [address] Growth/ follow up OB/Gynecology Comment on above: Growth/ follow up Start: 03-31-2024 End: 06-30-2024 CBC panel - Blood by Automated count COMPLETE BLOOD COUNT Lab Routine Anemia during in third trimester Expected: 03/31/2024, Expires: 06/30/2024 [facility] Comment on above: Expected: 03/31/2024 , Expires: 06/30/2024 Start: 03-31-2024 End: 03-31-2024 Patient encounter procedure 03/31/2024 1:15 PM EDT Routine Office Visit OB/Gynecology [address] [place] [address] Berta Eldridge APRN.CN [address] [place] [address] OB OB/Gynecology Comment on above: OB Start: 03-17-2024 End: 06-16-2024 GEST GLUC CYNDY, 3-HR, 100 GM, FASTING GEST GLUC CYNDY, 3-HR, 100 GM, FASTING Lab Routine Abnormal maternal glucose tolerance, antepartum Expected: 03/17/2024, Expires: 06/16/2024 [facility] Work Phone: Comment on above: Expected: 03/17/2024 , Expires: 06/16/2024 Start: 03-03-2024 End: 06-02-2024 CBC W Auto Differential panel - Blood COMPLETE BLOOD COUNT AND DIFFERENTIAL Lab Routine 23 weeks gestation of Supervision of high risk in second trimester Expected: 03/03/2024 (Approximate), Expires: 06/02/2024 [facility] Comment on above: Expected: 03/03/2024 (Approximate), Expires: 06/02/2024 Start: 03-03-2024 End: 06-02-2024 GESTATIONAL GLUCOSE SCREEN, 1-HOUR, 50 GRAM, NON-FASTING GESTATIONAL GLUCOSE SCREEN, 1-HOUR, 50 GRAM, NON-FASTING Lab Routine 23 weeks gestation of Supervision of high risk in second trimester Expected: 03/03/2024 (Approximate), Expires: 06/02/2024 [facility] Work Phone: Comment on above: Expected: 03/03/2024 (Approximate), Expires: 06/02/2024 Start: 03-03-2024 End: 06-02-2024 SYPHILIS TOTAL W/REFLEX SYPHILIS TOTAL W/REFLEX Lab Routine 23 weeks gestation of Supervision of high risk in second trimester Expected: 03/03/2024 (Approximate), Expires: 06/02/2024 [facility] Comment on above: Expected: 03/03/2024 (Approximate), Expires: 06/02/2024 Start: 03-03-2024 End: 06-02-2024 TYPE + SCREEN TYPE + SCREEN Blood Bank Routine 23 weeks gestation of Supervision of high risk in second trimester Expected: 03/03/2024 (Approximate), Expires: 06/02/2024 [facility] Comment on above: Expected: 03/03/2024 (Approximate), Expires: 06/02/2024 Start: 03-03-2024 End: 03-03-2024 Patient encounter procedure 03/03/2024 1:00 PM EDT Routine Office Visit OB/Gynecology [address] [place] [address] Berta Eldridge APRN.[facility] [address] [place] [address] LISA/ [facility] lab OB/Gynecology Comment on above: LISA/ [facility] lab Start: 03-03-2024 End: 03-03-2024 ambulatory 03/03/2024 12:45 PM EDT Results Only [place] [address] [facility] [address] [place] [address] lab [facility] Comment on above: lab Start: 01-12-2024 PAP TESTING PAP TESTING [facility] Start: 11-17-2023 End: 11-17-2024 OBSTETRIC ULTRASOUND WHI OBSTETRIC ULTRASOUND WHI Anc Imaging Routine 12 weeks gestation of Encounter for supervision of normal first in first trimester Expected: 11/17/2023, Expires: 11/17/2024 [facility] Work Phone: Comment on above: Expected: 11/17/2023 , Expires: 11/17/2024 Start: 11-10-2023 Annual PCP Team Cad Intern jevon Disease Visit Annual PCP Team Chronic Disease Visit [facility] Start: 10-12-2023 Behavioral Health Screening Behavioral Health Screening [facility] Start: 10-12-2023 [facility] Assessment [facility] Start: 07-01-2023 CHLAMYDIA SCREENING (18-24) CHLAMYDIA SCREENING (18-24) [facility] Start: 07-01-2023 GC (GONORRHEA) SCREENING (18-24) GC (GONORRHEA) SCREENING (18-24) [facility] Start: 06-12-2023 Covid-19 Vaccine (2022-24 season) Covid-19 Vaccine (2022-24 season) [facility] Start: 06-12-2023 Influenza vaccination Influenza Vacc ine (#1) [facility] Start: 01-16-2023 [facility] Start: 10-12-2022 [facility] Start: 09-27-2022 CHLAMYDIA SCREENING (18-24) CHLAMYDIA SCREENING (18-24) [facility] Start: 09-27-2022 GC (GONORRHEA) SCREENING (18-24) GC (GONORRHEA) SCREENING (18-24) [facility] Start: 06-12-2022 Influenza vaccination [facility] Start: 10-12-2021 DEPRESSION ASSESSMENT DEPRESSION ASS ESSMENT [facility] Start: 07-28-2021 Urine microalbumin profile [facility] Start: 02-14-2021 COVID-19 VACCINE (2 - Booster for Britney series) COVID-19 VACCINE (2 - Booster for Britney series) [facility] Start: 2016 Anxiety Screening Anxiety Screening [facility] Start: 2016 Depression Screening Depression Scre ening [facility] Start: 2016 Spirometry Spirometry [facility] Start: 10-02-2014 HPV VACCINE (3 - 3-d ose series) HPV VACCINE (3 - 3-dose series) [facility] Start: 2014 Meningococcal B Vaccine: Consider Based On Risk (1 of 2 - Patient Seeks Protection) Meningococcal B Vaccine: Consider Based On Risk (1 of 2 - Patient Seeks Protection) [facility] Start: 08-25-2014 HPV Vaccine (3 - 3-d ose series) HPV Vaccine (3 - 3-dose series) [facility] Start: 2012 PEDS TO ADULT TRANSITION ANNUAL ASSESSMENT PEDS TO ADULT TRANSITION ANNUAL ASSESSMENT [facility] Start: 2010 Adult depression screening assessment DEPRESSION SCREENING [facility] Start: 2010 PEDS TO ADULT TRANSITION INITIAL DISCUSSION PEDS TO ADULT TRANSITION INITIAL DISCUSSION [facility] Start: 2008 MENINGOCOCCAL B: Consider based on risk (1 of 2 - Risk Bexsero 2-dose series) MENINGOCOCCAL B: Consider based on risk (1 of 2 - Risk Bexsero 2-dose series) [facility] Start: 2004 Pneumococcal vaccination Pneumococcal Vaccine (1 of 2 - PCV) [facility] ALERE STREP A TEST (AG) ALERE ST REP A TEST (AG) Lab Routine Sore throat Ordered: 06/23/2022 [facility] Work Phone: Comment on above: Ordered: 06/23/2022 Bacteria identified in Urine by Culture Urine Culture [facility] Bacteria identified in Urine by Culture URINE CULTURE Microbiology Routine Urinary frequency 07/22/2024 3:04 PM EDT [facility] Work Phone: BACTERIAL VAGINOSIS AMPLIFICATION BACTERIAL VAGINOSIS AMPLIFICATION Lab Routine Screen for STD (sexually transmitted disease) 07/01/2022 11:20 AM EDT [facility] Work Phone: BACTERIAL VAGINOSIS AMPLIFICATION BACTERIAL VAGINOSIS AMPLIFICATION Lab Routine Screen for STD (sexually transmitted disease) 12/26/2022 3:13 PM EDT [facility] Work Phone: BACTERIAL VAGINOSIS NAAT BACTERIAL VAGINOSIS NAAT Lab Routine Vaginal discharge 07/22/2024 3:04 PM EDT [facility] BACTERIAL VAGINOSIS NAAT BACTERIAL VAGINOSIS NAAT Lab Routine Screen for STD (sexually transmitted disease) Vaginal discharge Vaginal itching 08/29/2024 3:06 PM [facility] BACTERIAL VAGINOSIS NAAT BACTERIAL VAGINOSIS NAAT Lab Routine Vaginal discharge 09/13/2024 2:00 PM [facility] BACTERIAL VAGINOSIS NAAT BACTERIAL VAGINOSIS NAAT Lab Routine Vaginal discharge Vaginal itching 01/12/2025 8:33 AM EDT [facility] End: 10-26-2024 BIOPHYSICAL PROFILE US WHI BIOPHYSICAL PROFILE US [facility] Anc Imaging Routine Decreased movements in third trimester, single or unspecified fetus Once per week for 10 Occurrences starting 04/29/2024 until 10/26/2024 [facility] Work Phone: Comment on above: Once per week for 10 Occurrences starting 04/29/2024 until 10/26/2024 DAX / TRICHOMONA S AMPLIFICATION DAX / TRICHOMONAS AMPLIFICATION Microbiology Routine Screen for STD (sexually transmitted disease) 07/01/2022 11:20 AM [facility]: DAX / TRICHOMONA S AMPLIFICATION DAX / TRICHOMONAS AMPLIFICATION Microbiology Routine Screen for STD (sexually transmitted disease) 12/26/2022 3:13 PM HASH [facility] Work Phone: DAX/TRICHOMONAS NAAT DAX/TRICHOMONAS NAAT Lab Routine Screen for STD (sexually transmitted disease) Vaginal discharge Vaginal itching 08/29/2024 3:06 PM [facility] DAX/TRICHOMONAS NAAT DAX/TRICHOMONAS NAAT Lab Routine Vaginal discharge 09/13/2024 2:00 PM [facility] DAX/TRICHOMONAS NAAT DAX/TRICHOMONAS NAAT Lab Routine Vaginal discharge Vaginal itching 01/12/2025 8:33 AM [facility] Chlamydia trachomatis+Neisseria gonorrhoeae DNA [Presence] in Unspecified specimen by JOSE with probe detection GC/CHLAMYDIA DNA DET Lab Routine Screen for STD (sexually transmitted disease) 07/01/2022 11:20 AM HASH [facility] Work Phone: Chlamydia trachomatis+Neisseria gonorrhoeae DNA [Presence] in Unspecified specimen by JOSE with probe detection GC/CHLAMYDIA DNA DET Lab Routine Screen for STD (sexually transmitted disease) [facility] Chlamydia trachomatis+Neisseria gonorrhoeae DNA [Presence] in Unspecified specimen by JOSE with probe detection GONORRHEA/CHLAMYDIA NAAT Lab Routine Screen for STD (sexually transmitted disease) Vaginal discharge Vaginal itching 08/29/2024 3:06 PM [facility] Chlamydia trachomatis+Neisseria gonorrhoeae DNA [Presence] in Unspecified specimen by JOSE with probe detection GONORRHEA/CHLAMYDIA NAAT Lab Routine Vaginal discharge 09/13/2024 2:00 PM [facility] Work Phone: Chlamydia trachomatis+Neisseria gonorrhoeae DNA [Presence] in Unspecified specimen by JOSE with probe detection GONORRHEA/CHLAMYDIA NAAT Lab Routine Vaginal discharge Vaginal itching 01/12/2025 8:33 AM EDT [facility] NEXPLANON INSERTION NEXPLANON IN SERTION Procedures Routine Insertion of Nexplanon Ordered: 07/01/2022 [facility] Work Phone: Comment on above: Ordered: 07/01/2022 NEXPLANON REMOVAL NEXPLANON AARON ELANA Procedures Routine Nexplanon removal Ordered: 07/01/2022 [facility] Work Phone: Comment on above: Ordered: 07/01/2022 NEXPLANON REMOVAL NEXPLANON AARON ELANA Procedures Routine Nexplanon removal Ordered: 03/10/2025 [facility] Work Phone: Comment on above: Ordered: 03/10/2025 End: 09-27-2024 OBSTETRIC ULTRASOUND WHI OBSTETRIC ULTRASOUND WHI Anc Imaging Routine Supervision of high risk in third trimester 31 weeks gestation of Once per month for 5 Occurrences starting 03/31/2024 until 09/27/2024 [facility] Work Phone: Comment on above: Once per month for 5 Occurrences starting 03/31/2024 until 09/27/2024 PAP FLUID CERVICAL SCREENING PAP FLUID CERVICAL SCREENING Lab Routine Encounter for gynecological examination (general) (routine) without abnormal findings Screening for cervical cancer Encounter for screening for human papillomavirus (HPV) 07/01/2022 11:20 AM EDT [facility] Work Phone: PAP TEST PAP TEST Lab Mag chris care and examination Encounter for screening for malignant neoplasm of cervix 06/24/2024 2:20 PM EDT [facility] Work Phone: Patient Education [facility] Work Phone: Patient referral [facility] Work Phone: ROUTINE, GR OUP B STREP PCR ROUTINE, GROUP B STREP PCR Microbiology Routine Encounter for supervision of high risk in third trimester, antepartum 36 weeks gestation of Anemia during in third trimester Excessive growth affecting management of in third trimester, single or unspecified fetus Tobacco smoking complicating in third trimester 04/29/2024 2:56 PM EDT [facility] SARS-CoV-2 (COVID-19 ) RNA [Presence] in Respiratory specimen by JOSE with probe detection 2019 CORONAVIRUS Microbiology Routine Sore throat 03/31/2022 1:06 PM EDT [facility] Work Phone: Streptococcus pyogen es antigen assay Group A Streptococcus Rapid Screen [facility] Work Phone: Streptococcus pyogen es rRNA [Presence] in Throat by Probe [facility] Immunizations Immunization Date Immunization Notes Care Provider Lenny tello 03-16-2024 RHO(D) immune globul in- IV or IM Berta Eldridge ANVIL WORKER.CNM Work Phone: [facility] 03-16-2024 tetanus toxoid, redu dang diphtheria toxoid, and acellular pertussis vaccine, adsorbed Berta Eldridge ANVIL WORKER.CNM Work Phone: [facility] 01-05-2020 influenza, injectabl e, quadrivalent, preservative free Dr. Tremayne Quiñonez MD Work Phone: [facility] 01-05-2020 influenza, seasonal, injectable [facility] 01-05-2020 influenza virus vacc ine, unspecified formulation Berta Eldridge ANVIL WORKER.CNM Work Phone: [facility] 06-02-2014 human papilloma viru s vaccine, quadrivalent Lg Rene MD Work Phone: [facility] 02-01-2014 human papilloma viru s vaccine, quadrivalent Lg Rene MD Work Phone: [facility] 02-01-2014 meningococcal polysaccharide (groups A, C, Y and W-135) diphtheria toxoid conjugate vaccine (MCV4P) Lg Rene MD Work Phone: [facility] 02-01-2014 varicella virus vaccine Cayla Rene MD Work Phone: [facility] 07-28-2011 tetanus toxoid, redu dang diphtheria toxoid, and acellular pertussis vaccine, adsorbed Lg Rene MD Work Phone: [facility] 07-28-2011 varicella virus vaccine Cayla Rene MD Work Phone: [facility] 03-19-2004 measles, mumps and rubella virus vaccine Lg Rene MD Work Phone: [facility] 03-19-2004 poliovirus vaccine, inactivated Lg Rene MD Work Phone: [facility] 03-14-2004 diphtheria, tetanus toxoids and acellular pertussis vaccine, 5 pertussis antigens Lg Rene MD Work Phone: [facility] 03-14-2004 measles, mumps and rubella virus vaccine Lg Rene MD Work Phone: [facility] 03-14-2004 poliovirus vaccine, inactivated Lg Rene MD Work Phone: [facility] 07-15-2000 measles, mumps and rubella virus vaccine Lg Rene MD Work Phone: [facility] 12-03-1999 diphtheria, tetanus toxoids and acellular pertussis vaccine, 5 pertussis antigens Lg Rene MD Work Phone: [facility] 12-03-1999 haemophilus influenz ae type b vaccine, HbOC conjugate Lg Rene MD Work Phone: [facility] 12-03-1999 poliovirus vaccine, inactivated Lg Rene MD Work Phone: [facility] 09-10-1999 hepatitis B vaccine, pediatric or pediatric/adolescent dosage Lg Rene MD Work Phone: [facility] 02-18-1999 diphtheria, tetanus toxoids and acellular pertussis vaccine, 5 pertussis antigens Lg Rene MD Work Phone: [facility] 02-18-1999 haemophilus influenz ae type b vaccine, HbOC conjugate Lg Rene MD Work Phone: [facility] 1998 diphtheria, tetanus toxoids and acellular pertussis vaccine, 5 pertussis antigens Lg Rene MD Work Phone: [facility] 1998 haemophilus influenz ae type b vaccine, HbOC conjugate Lg Rene MD Work Phone: [facility] 1998 poliovirus vaccine, inactivated Lg Rene MD Work Phone: [facility] 1998 diphtheria, tetanus toxoids and acellular pertussis vaccine, 5 pertussis antigens Lg Rene MD Work Phone: [facility] 1998 haemophilus influenz ae type b vaccine, HbOC conjugate Lg Rene MD Work Phone: [facility] 1998 hepatitis B vaccine, pediatric or pediatric/adolescent dosage Lg Rene MD Work Phone: [facility] 1998 poliovirus vaccine, inactivated Lg Rene MD Work Phone: [facility] 1998 hepatitis B vaccine, pediatric or pediatric/adolescent dosage Lg Rene MD Work Phone: [facility] Payers Date Payer Category Payer Self-pay [id number] 2022 Unknown [id number] 2022 Unknown [id number] 2021 Medicaid [employer] [place] [employer] [id number] 2021-Present [phone] [address] [place] [address] Medicaid [id number] 2021 Medicaid [id number] 1998 Unknown [id number] 1998 Unknown [id number] Unknown [id number] Unknown [id number] Unknown [id number] Social History Date Type Detail Facility Start: 07-26-2019 End: 06-24-2024 Tobacco smoking status NYIS Ex-smoker [facility] Work Phone: Start: 07-26-2019 End: 06-24-2024 Tobacco use and exposure Smokeless tobacco non-user [facility] Work Phone: Start: 01-13-2022 End: 05-08-2025 Alcohol intake Current non-drinker of alcohol (finding) [facility] Start: 1998 Sex Assigned At Female [facility] Start: 01-03-2022 End: 08-29-2022 Exposure to SARS-CoV-2 (event) Not sure [facility] Work Phone: Start: 02-06-2022 End: 06-23-2022 Tobacco Comment vaping [facility] Start: 05-08-2022 End: 03-12-2023 Tobacco smoking status NHIS Unknown if ever smoked [facility] Start: 01-04-2020 Sober [facility] Start: 01-04-2020 - [facility] Start: 01-28-2020 Alone [facility] History of tobacco use Current smoker [facility] Tobacco smoking status Never smo ked tobacco (finding) [facility] Start: 09-04-2023 [facility] Start: 07-06-2023 End: 12-30-2024 History of Social function [facility] Work Phone: Start: 07-06-2023 End: 12-30-2024 Tobacco use panel [facility] Work Phone: Start: 11-01-2013 Adult Depression Screening Assessment 2 [facility] Work Phone: History of tobacco use Cigarette Smoker [facility] thought of rajiv ng myself has occurred to me Never [facility] Start: 04-15-2025 Tobacco smoking stat us NHIS Smokes tobacco daily (finding) [facility] NEGATED: Highlighted row [facility] Goals Date Patient Goal Desired Activity /State Personal health goal Functional Status Date Assessment Result Facility 11-06-2022 Functional Status Standard Safet y ID band on, Call device within reach, Bed in low position, Wheels locked, Upper/Half-Length side-rails up, Bedside Cart Locked, Safety level maintained [facility] 02-05-2015 Are you deaf, or do you have serious difficulty hearing No 02/05/2015 1:25 PM EDT Sirena Sharma MA No [facility] 02-05-2015 Are you blind, or do you have serious difficulty seeing, even when wearing glasses No 02/05/2015 1:25 PM EDT Sirena Sharma MA No [facility] 02-05-2015 Do you have serious difficulty walking or climbing stairs No 02/05/2015 1:25 PM EDT Sirena Sharma MA No [facility] 02-05-2015 Do you have difficul ty dressing or bathing No 02/05/2015 1:25 PM EDT Sirena Sharma MA No [facility] 02-05-2015 Because of a physica l, mental, or emotional condition, do you have difficulty doing errands alone such as visiting a physician's office or shopping No 02/05/2015 1:25 PM EDT Sirena Sharma MA No [facility] Mental Status Date Assessment Result Facility 11-06-2022 Mental Status Orientation Oriented x 4 [facility] 02-05-2015 Because of a physica l, mental, or emotional condition, do you have serious difficulty concentrating, remembering, or making decisions No 02/05/2015 1:25 PM EDT Sirena Sharma MA No [facility] Clinical Notes 07-28-2021 to 08-18-2025 Telephone Encounter - Em Rhodes RN - 05/31/2025 1:35 PM EDTTelephone Encounter - Em Rhodes RN - 05/31/2025 1:35 PM EDTTelephone Encounter - Itzel Robert MA - 05/31/2025 11:29 AM EDT Note Date & Type Note Facility 08-18-2025 Note HNO ID: [id number] Author: KELLI BOYLE APRN.COST CONSULTANT Service: ? Author Type: Nurse Practitioner Type: Progress Notes Filed: 08/18/2025 10:58 Note Text: CC: Patient presents with: Diarrhea: Diarrhea daily, vomiting HPI Jackson Ny is a 24 year old female who presents today for diarrhea and vomiting. Visit difficult to fully complete due to the severity of vomiting throughout visit. Recording using Biomat[employer] software for draft documentation of the visit was discussed with the patient/authorized representative personal service; all questions welcomed and answered. Patient/authorized representative personal service agreed to proceed Giorgio Ny is a [...] onset vomiting (2 (more content not included)... [facility] 07-25-2025 Note HNO ID: [id number] Author: TAINA ALBRIGHT APRN.COST CONSULTANT Service: ? Author Type: Nurse Practitioner Type: Progress Notes Filed: 07/25/2025 12:36 Note Text: [facility] Cantu Jackson Ny is a 24 year old [...] a few days ago. - Describes as uncomfortable with increased discharge, but denies itching or burning. - Denies presence of sores. - Sexually active; has herpes but not currently experiencing an outbreak. - Discharge described as normal in color, possibly slightly brown, but mostly [...] with her doctor. and Recording using ambient AI software for draft documentation of the visit was discussed with the patient/authorized representative personal service; all questions welcomed and answered. Patient/authorized representative personal service agreed to proceed MDM Procedures [facility] 07-14-2025 Note HNO ID: [id number] Author: LINDA FELTON APRN.COST CONSULTANT Service: ? Author Type: Nurse Practitioner Type: [...] Discussed expected course of illness Linda Felton APRN.COST CONSULTANT and Recording using Biomat[employer] software for draft documentation of the visit was discussed with the patient/authorized representative personal service; all questions welcomed and answered. Patient/authorized representative personal service agreed to proceed Disposition The patient was [...] Frequency: 7.0 times per week Types: Marijuana [facility] 05-31-2025 Telephone encounter Note Images from the original note were not included. Most recent Endocrinology visit: Last encounter Visit on 03/10/2025 (with Ruthiemedardo Jensen Bendaram) 11/22/2024 in [facility] with BENDARAM, RUTHIE JENSEN for Acquired hypothyroidism 12/30/2024 in [facility] with BENDARAM, RUTHIE JENSEN for Elevated TSH 03/10/2025 in [facility] with BENDARAM, RUTHIE JENSEN for Acquired hypothyroidism Upcoming Endocrinology Appointments - Next 365 Days Visit Type Date Time Department EST ANGELO PATIENT 08/21/2025 2:00 PM [facility] Requested Prescriptions Pending Prescriptions Disp Refills levothyroxine [...] on file in the last 12 months [facility] 05-31-2025 Miscellaneous Notes Images from the original note were not included. Most recent Endocrinology visit: Last encounter Visit on 03/10/2025 (with Ruthie Luna) 11/22/2024 in [facility] with RUTHIE LUNA for Acquired hypothyroidism 12/30/2024 in [facility] with RUTHIE LUNA for Elevated TSH 03/10/2025 in [facility] with RUTHIE LUNA for Acquired hypothyroidism Upcoming Endocrinology Appointments - Next 365 Days Visit Type Date Time Department EST ANGELO PATIENT 08/21/2025 2:00 PM [facility] Requested Prescriptions Pending Prescriptions Disp Refills levothyroxine [...] the last 12 months Pt calling from [place]. Her prescription was not authorized before she left for vacation. She would like it sent to pharmacy in [place]. She is out and will not return until next Thursday. Asking for mychart message when it is sent. Pt pharmacy request updated in pended order. Itzel Robert MA Patient reports she is leaving town tomorrow morning and is requesting a refill as soon as possible. Karina Eugene MA documented in this encounter [facility] 05-31-2025 Telephone encounter Note Pt calling from [place]. Her prescription was not authorized before she left for vacation. She would like it sent to pharmacy in [place]. She is out and will not return until next Thursday. Asking for mychart message when it is sent. Pt pharmacy request updated in pended order. Itzel Robert MA [facility] 05-29-2025 Telephone encounter Note Patient reports she is leaving town tomorrow morning and is requesting a refill as soon as possible. Karina Eugene MA [facility] 05-08-2025 Instructions Kelli Boyle APRN.CNP - 05/08/2025 [...] contact the office documented in this encounter [facility] 05-08-2025 Note HNO ID: [id number] Author: KELLI BOYLE APRN.CNP Service: ? Author Type: Nurse Practitioner Type: Progress Notes Filed: 05/08/2025 17:16 Note Text: CC: Patient presents with: Physical: Annual Physical HPI Jackson Ny is a 24 year old female who presents today for annual exam but also has some concerns. Recording using [employer]omat[employer] software for draft documentation of the visit was discussed with the patient/authorized representative personal service; all questions welcomed and answered. Patient/authorized representative personal service agreed to proceed Annual Wellness Exam: - Recent removal of Nexplanon implant, approximately one month ago. - Works at [employer]. - Has a 1-year-old child. - Denies regular exercise; diet described as not terrible, but not that bad. Hypothyroidism: - Diagnosed approximately 6 months ago; currently taking levothyroxine as ordered by endocrinology. - Next thyroid level check scheduled for August. - Experiencing nausea, diarrhea, heat intolerance, and fatigue. - Nausea occurs in the morning after taking medication. - Diarrhea follows eating, lasting until around 11:00-12:00. - Heat intolerance described as feeling a million degrees at all times. - Denies hair, skin, or nail changes. - Recent weight gain; questions if thyroid medication should cause weight loss. - Denies increased thirst hunger or urination - Denies dizziness, syncope, weakness, confusion, or severe headaches. - Denies fever, chills, cough, wheezing, or dyspnea. - Denies urinary changes or dysuria. - Denies emesis, but reports one episode of phony spit stuff at work. - Denies chest pressure edema [...] unspecified type (E03.9) (more content not included)... [facility] 05-08-2025 History of Presen t illness Narrative CC: Patient presents with: Physical: Annual Physical HPI Jackson Ny is a 24 year old female who presents today for annual exam but also has some concerns. Recording using [employer]omat[employer] software for draft documentation of the visit was discussed with the patient/authorized representative personal service; all questions welcomed and answered. Patient/authorized representative personal service agreed to proceed Annual Wellness Exam: - Recent removal of Nexplanon implant, approximately one month ago. - Works at [employer]. - Has a 1-year-old child. - Denies regular exercise; diet described as not terrible, but not that bad. Hypothyroidism: - Diagnosed approximately 6 months ago; currently taking levothyroxine as ordered by endocrinology. - Next thyroid level check scheduled for August. - Experiencing nausea, diarrhea, heat intolerance, and fatigue. - Nausea occurs in the morning after taking medication. - Diarrhea follows eating, lasting until around 11:00-12:00. - Heat intolerance described as feeling a million degrees at all times. - Denies hair, skin, or nail changes. - Recent weight gain; questions if thyroid medication should cause weight loss. - Denies increased thirst hunger or urination - Denies dizziness, syncope, weakness, confusion, or severe headaches. - Denies fever, chills, cough, wheezing, or dyspnea. - Denies urinary changes or dysuria. - Denies emesis, but reports one episode of phony spit stuff at work. - Denies chest pressure edema [...] Kelli Boyle APRN.LORI documented in this encounter [facility] 04-24-2025 Note HNO ID: [id number] Author: BINTA HATHAWAY APRN.LORI Service: ? Author Type: Nurse Practitioner Type: Progress Notes Filed: 04/24/2025 19:15 Note Text: [facility] Subjective Jackson Ny is a 24 year old female. Patient presents with: Vomiting: Vomiting x 1 day HPI Emesis: - Emesis x3-4 episodes this morning. - Denies diarrhea. - Reports feeling hungover every morning for the past few days, [...] return to work tomorrow. and Recording using [employer] software for draft documentation of the visit was discussed with the patient/authorized representative personal service; all questions welcomed and answered. Patient/authorized representative personal service agreed to proceed MDM Procedures [facility] 04-24-2025 History of Presen t illness Narrative [facility] Alondra Jackson Ny is a 24 year old female. Patient presents with: Vomiting: Vomiting x 1 day HPI Emesis: - Emesis x3-4 episodes this morning. - Denies diarrhea. - Reports feeling hungover every morning for the past few days, [...] return to work tomorrow. and Recording using [employer] software for draft documentation of the visit was discussed with the patient/authorized representative personal service; all questions welcomed and answered. Patient/authorized representative personal service agreed to proceed MDM Procedures documented in this encounter [facility] 04-15-2025 Discharge summary [facility] 04-15-2025 Discharge summary Note Date/Time April 15, 2025 6:19pm [facility] Medical Records Department [address] [place] [address] Emergency Department Summary 04/15/25 MR#: [id number] Acct: [id number] Name: [place] Rep #:[id number] : [...] ?Type vit no.95-ferrous 1 tab PO DAILY 06/12/24 Unk nown History fumarate 28 mg-folic acid [...] hours to come back. ER number is [phone]. Print Language: Egyptian Disposition Disposition: Home, Self Care What to do if you have Problems For any increased pain, shortness of breath, bleeding, nausea or vomiting, chestpain, or any unexpected problems, contact your Primary Care Provider. Call [facility] ([phone]) or report to the closest Emergency Room. Call 911 if necessary. 04/15/251818 <Electronically signed by Tremayne Quiñonez MD> Cosigner Signature (if applicable): CC: No Primary Care Physician ~ Signed [facility] Work Phone: 1(287) 563-355807-05-2025 Hospital Discharge instructionsAdditional Instructions Warm salt water gargling. Throat lozenges. Motrin and Tylenol for pain. Follow-up if not improving or return if worse. Call the emergency department in [address] Quiñonez. I will take your strep results will take about 2 hours to come back. ER number is [phone].[facility] Work Phone: 1(581) 739-295806-11-2025 NoteHNO ID: [id number] Author: KARINA KWONG MD Service: ? Author [...] Nexplanon removed intact without difficulty. Karina Kwong, [facility]06-11-2025 History of Present illness Narrative* Karina Kwong [...] difficulty. Karina Kwong MD [facility] Telephone encounter Note * Telephone Encounter - Binta Carcamo APRN.CNM - 03/10/2025 4:32 PM EDT Order signed. Binta Carcamo APRN.CNM [facility]05-30-2025 Miscellaneous Notes* Telephone Encounter - Binta Carcamo APRN.CNM - 03/10/2025 4:32 PM EDT Order signed. Binta Carcamo APRN.CNM * Telephone Encounter - Em Carter - 03/10/2025 3:17 PM EDT PT requesting appt for nexplanon removal. Appt has been scheduled please place order to attatch to appt. Thank you documented [facility] Telephone encounter Note * Telephone Encounter - Em Carter - 03/10/2025 3:17 PM EDT PT requesting appt for nexplanon removal. Appt has been scheduled please place order to attatch to appt. Thank you [facility]05-30-2025 Instructions* Patient Instructions* Ruthie Luna MD - 03/10/2025 3:09 PM EDT Please continue the same dose of levothyroxine 75 mcg daily Repeat labs in 6 months documented in this [facility]25 NoteHNO ID: [id number] Author: RUTHIE LUNA MD Service: ? Author [...] ?F) (Temporal Artery) Ht 167.6 cm (5' 6) Wt 86.9 kg (191 lb 9.6 oz) [...] Velasco, et al. 2017 Guidelines of the [place] Thyroid Association for the Diagnosis and Management of Thyroid Disease during and the . Thyroid, 2017:27: (more content not included)...[facility]05-30-2025 History of Present illness Narrative* Ruthie Luna MD - 03/10/2025 3:04 PM EDT [facility] Follow up note CONSULTING PROVIDER: Reagan Campos APRN. COST CONSULTANT (OBGYN) My final recommendations will be communicated [...] since delivery- but has seen OBGYN and itwas indicated that nexplanon might be contributing to [...] F) (Temporal Artery) Ht 167.6 cm (5' 6) Wt 86.9 kg (191 lb 9.6 oz) [...] Thyroid Function tests in . Thyroid, 2019:29:3:412-420.Feng E, et al. 2017 Guidelines of the [place] Thyroid Association for the Diagnosis and Management [...] Moderate Ruthie Luna MD Endocrinology Associate Staff [facility] Endocrinology and Metabolism [place] [phone] documented in this [facility] Instructions* Patient Instructions* Binta Carcamo APRN.CNM - 02/22/2025 1:57 PM EDT Boric acid suppositories Ph essential[facility] documented in this [facility]25 NoteHNO ID: [id number] Author: BINTA CARCAMO APRN.CNM Service: ? Author Type: Banquet Coordinator Type: Progress Notes Filed: 02/22/2025 14:13 Note Text: Obstetrics and Gynecology [place] POCKET STITCHER Visit Subjective Recording using ambient Katango software for draft documentation of the visit was discussed with the patient/authorized representative personal service; all questions welcomed and answered. 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 Event Manager initiated levothyroxine therapy. 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 Vulvar pruritus (L29.2) Intermittent pruritus, no current sexual activity or new partners. Recent evaluation for yeast infection and BV was negative. - Recommended boric acid suppositories or wash from [employer]. - Advised daily consumption of Divehi yogurt with live active cultures. - Monitor symptoms; if no improvement, further testing may be necessary. 3. Presence of subdermal contraceptive implant (Z97.5) Nexplanon implant in place since May 08, 2024. Initial frequent vaginal (more content not included)...[facility]05-14-2025 History of Present illness Narrative* Binta Carcamo APRN.NOE - 02/22/2025 1:35 PM EDT Images from the original note were not included. Obstetrics and Gynecology [place] POCKET STITCHER Visit Subjective Recording using [employer]omat[employer] software for draft documentation of the visit was discussed with the patient/authorized representative personal service; all questions welcomed and answered. 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 Event Manager initiated levothyroxine therapy. 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 Vulvar pruritus (L29.2) Intermittent pruritus, no current sexual activity or new partners. Recent evaluation for yeast infection and BV was negative. - Recommended boric acid suppositories or wash from [facility]. - Advised daily consumption of Divehi yogurt with live active cultures. - Monitor [...] Nexplanon. Binta Carcamo APRN.CNM documented in this encounter[facility] Telephone encounter Note * Telephone Encounter - Krystin Rothman RN - 02/16/2025 9:11 AM EDT Patient phones requesting refills as follows: Patient also asking [facility] [place]. Requested Prescriptions Pending Prescriptions Disp Refills levothyroxine (SYNTHROID) 75 mcg tablet [Pharmacy Med Name: levothyroxine 75 mcg tablet] 90 tablet 0 Sig: Take 1 tablet by mouth once daily. Please review and advise. Krystin Rothman RN [facility]05-08-2025 Miscellaneous Notes* Telephone Encounter - Krystin Rothman RN - 02/16/2025 9:11 AM EDT Patient phones requesting refills as follows: Patient also asking to switch pharmacy to [facility] in [place]. Requested Prescriptions Pending Prescriptions Disp Refills levothyroxine (SYNTHROID) 75 mcg tablet [Pharmacy Med Name: levothyroxine 75 mcg tablet] 90 tablet 0 Sig: Take 1 tablet by mouth once daily. Please review and advise. Krystin Rothman RN documented in this encounter[facility]-2025 NoteHNO ID: [id number] Author: REAGAN CAMPOS APRN.LORI Service: ? Author Type: Nurse Practitioner Type: Progress Notes Filed: 01/12/2025 08:29 Note Text: Chief Deputy Clerk/Bailiff offered: Patient declines. Jackson Ny is a [...] discussed with the Patient or Patient's Authorized Infertility Medical Assistant. As applicable, any other physician, advance practice provider, medical student, or other health professional student that will be observing or involved in the sensitive examination for educational or training purposes was discussed with the Patient or Authorized Infertility Medical Assistant. The Patient or Authorized Infertility Medical Assistant has agreed to proceed with the sensitive examination. (Sensitive examination includes inspection and/or palpation of the breasts, pelvis, prostate and anorectal regions). BP 112/60 Wt 183 lb (83.0kg) LMP 12/28/2024 GENERAL: Well developed, well nourished in no apparent distress PELVIC: external genitalia normal, normal Bartholin's glands, urethra, [place]'s glands, no vulvar lesions, no cervical lesions, [...] function - Send suppressive therapy Reagan Campos APRN.COST CONSULTANT Medical Decision Making: Problems: Low: Acute, uncomplicated illness or injury Data: Unique test(s) ordered: 3+ Risk: Low: Low risk from testing/treatment Moderate: Drug management Medical Decision Making Level: 4 - [facility]erate[facility] History of Present illness Narrative* Reagan Campos APRN.COST CONSULTANT - 01/12/2025 8:13 AM EDT Chief Deputy Clerk/Bailiff offered: Patient declines. Jackson Ny is a [...] discussed with the Patient or Patient's Authorized Infertility Medical Assistant. As applicable, any other physician, advance practice provider, medical student, or other health professional student that will be observing or involved in the sensitive examination for educational or training purposes was discussed with the Patient or Authorized Infertility Medical Assistant. The Patient or Authorized Infertility Medical Assistant has agreed to proceed with the sensitive examination. (Sensitive examination includes inspection and/or palpation of the breasts, pelvis, prostate and anorectal regions). BP 112/60 Wt 183 lb (83.0kg) LMP 12/28/2024 GENERAL: Well developed, well nourished in no apparent distress PELVIC: external genitalia normal, normal [place]tholin's glands, urethra, [place]'s glands, no vulvar lesions, no cervical lesions, [...] function - Send suppressive therapy Reagan Campos APRN.CNP Medical Decision Making: Problems: Low: Acute, uncomplicated illness or injury Data: Unique test(s) ordered: 3+ Risk: Low: Low risk from testing/treatment Moderate: Drug management Medical Decision Making Level: 4 - Moderate documented in this encounter[facility] Instructions* Patient Instructions* Nohelia Oconnor MA - [...] avoid scratching at night. documented in this encounterSelect [facility]03-[facility]-2025 NoteHNO ID: [id number] Author: RUTHIE LUNA MD Service: ? Author Type: Physician Type: Progress Notes Filed: 12/31/2024 22:40 Note Text: [facility] Follow up note CONSULTING PROVIDER: Reagan Campos APRN. COST CONSULTANT (OBGYN) My final recommendations will be communicated [...] Velasco, et al. 2017 Guidelines of the [place] Thyroid Association for the Diagnosis and Management of Thyroid Disease during and the . Thyroid, 2017:27:3:315-389. Free T4 Date Value (more content not included)...[facility]25 NoteHNO ID: [id number] Author: FELI WINSTON APRN.COST CONSULTANT Service: ? Author Type: Nurse Practitioner Type: Progress Notes Filed: 12/04/2024 14:34 Note Text: This note was created using Childcare Bridgeriter. Subjective Jackson Ny is a 24 year [...] testing which patient declines. She will use [id number]-thmcvmp cough and cold treatments as necessary. Patient given a note for work. Feli Winston APRN.CNPFirelands [facility]02-23-2025 History of Present illness Narrative* Feli Winston APRN.CNP - 12/04/2024 2:32 PM EST This note was created using Childcare Bridgeriter. Subjective Jackson Ny is a 24 year [...] testing which patient declines. She will use [id number]-bgzgvis cough and cold treatments as necessary. Patient given a note for work. Feli Winston APRN.CNP documented in this encounterSelect [facility]-11-2025 Instructions* Patient Instructions* Ruthie Luna MD - 11/22/2024 8:40 AM EST Take levothyroxine on empty stomach (first thing in the morning), give atleast 45 mins to 1 hr before you take any medications, food or fluids other than water. If taking calcium or iron or multivitamin, please wait atleast 4 hours after taking your thyroid medication. documented in this encounterSelect Medical Specialty [facility]02-11-2025 NoteHNO ID: [id number] Author: RUTHIE LUNA MD Service: ? Author [...] tremors of outstretched arms (more content not included)...[facility]02-11-20[facility] History of Present illness Narrative* Ruthie Luna [...] Velasco et al. 2017 Guidelines of the [place] Thyroid Association for the Diagnosis and Management [...] Moderate Ruthie Luna MD Endocrinology Associate Staff [facility] Endocrinology and Metabolism [place] [phone] documented in this encounterSelect Medical Specialty Hospital [facility]02-07-2025 NoteHNO ID: [id number] Author: TYLER SALMON APRN.COST CONSULTANT Service: ? Author Type: Nurse Practitioner Type: [...] PROPIONATE 50 MCG/ACTUATION NASAL SPRAY,SUSPENSION Tyler Salmon APRN.[facility]02-07-2025 History of Present illness Narrative* Tyler Salmon APRN.COST CONSULTANT - 11/18/2024 5:03 PM EST Subjective HPI [...] PROPIONATE 50 MCG/ACTUATION NASAL SPRAY,SUSPENSION Tyler Salmon APRN.COST CONSULTANT documented in this encounterSelect Medical Specialty [facility]01-19-2025 Instructions* Patient Instructions* Binta Hathaway APRN.COST CONSULTANT - 10/30/2024 10:13 AM EST Steps to [...] days, such as taking additional steps for hospital cleaner air, hygiene, masks, physical distancing, and/or [...] to your local emergency facility: Notify the straw hat washer operator that you are seeking care for someone who has or may have COVID-19. Refer to the CDC for full guidance: https://www.cdc.gov/respiratory-viruses/index.html documented in this encounterSelect Medical Specialty [facility]01-19-2025 NoteHNO ID: [id number] Author: BINTA HATHAWAY APRN.LORI Service: ? 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 No sign language translator was used. 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 No sign language translator was used. Ear Pain This is a [...] Return to work note provided Binta Hathaway APRN.LORI documented in this encounterSelect Medical [facility]ty [facility]01-16-2025 Telephone encounter Note * Telephone Encounter - Alyson Barksdale RN - 10/27/2024 9:16 AM EST T4 is able to be added on to blood work, but patient will have to get thyroid antibody drawn though. Patient notified. She plans to get blood work drawn 10/31. Transferred to [facility] to schedule. Alyson Barksdale RN [facility]01-16-2025 Miscellaneous Notes* Telephone Encounter - Alyson Barksdale RN - 10/27/2024 9:16 AM EST T4 is able to be added on to blood work, but patient will have to get thyroid antibody drawn though. Patient notified. She plans to get blood work drawn 10/31. Transferred to [facility] to schedule. Alyson Barksdale RN * Telephone Encounter - Reagan Campos APRN.LORI - 10/27/2024 8:38 AM EST T4 and TPO added on. Please see if lab can add these on. Will need consult with endocrinology Reagan Campos APRN.LORI * Telephone Encounter - [...] Comment: Alyson Barksdale RN documented in this encounterSelect Medical [facility]01-16-2025 Telephone encounter Note * Telephone Encounter - Reagan Campos APRN.CNP - 10/27/2024 8:38 AM EST T4 and TPO added on. Please see if lab can add these on. Will need consult with endocrinology Reagan Campos APRN.LORI [facility]01-15-2025 Telephone encounter Note* Telephone Encounter - Alyson [...] 4.200 mIU/L Final Comment: Alyson Barksdale RN [facility]01-14-2025 Instructions* Patient Instructions* Binta Carcamo APRN.YOUM - 10/25/2024 12:02 PM EST Oral Contraceptives: [...] less iron deficiency anemia in pill users. extermination inspector use is associated with a decreased incidence [...] and mild fluid retention. 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 documented in this encounterSelect Medical Specialty [facility]01-14-2025 NoteHNO ID: [id number] Author: BINTA CARCAMO APRN.CNM Service: ? Author Type: Banquet Coordinator Type: Progress Notes Filed: 10/25/2024 14:50 Note Text: Chief Deputy Clerk/Bailiff offered: Patient declines. 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 As applicable, any other physician, advance practice provider, medical student, or other health professional student that will be observing or involved in the sensitive examination for educational or training purposes was discussed with the Patient or Authorized Infertility Medical Assistant. The Patient or Authorized Infertility Medical Assistant has agreed to proceed with the sensitive [...] attack with hormonal contraception. Reviewed warning signs ACHES. Discussed stopping control 4 weeks prior (more content not included)...[facility] 10-25-20[facility] History of Present illness Narrative* Binta Carcamo APRN.[facility] - 10/25/2024 11:22 AM EST Chief Deputy Clerk/Bailiff offered: Patient declines. 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 As applicable, any other physician, advance practice provider, medical student, or other health professional student that will be observing or involved in the sensitive examination for educational or training purposes was discussed with the Patient or Authorized Infertility Medical Assistant. The Patient or Authorized Infertility Medical Assistant has agreed to proceed with the sensitive [...] attack with hormonal contraception. Reviewed warning signs ACHES. Discussed stopping control 4 weeks prior to scheduled surgery if will be immobile. I reviewed with her the administration options and when to start. Her questions were answered and she desired to start. Binta Carcamo APRN.CNM documented in this encounterSelect Medical [facility]12-27-2024 Telephone encounter Note * Telephone Encounter - Karina Manning RN - 10/07/2024 9:04 AM EST Patient having a current HSV outbreak. Needing Acyclovir. RX pending. Karina Manning RN [facility]12-27-2024 Miscellaneous Notes* Telephone Encounter - Karina Manning RN - 10/07/2024 9:04 AM EST Patient having a current HSV outbreak. Needing Acyclovir. RX pending. Karina Manning RN documented in this encounterSelect Medical [facility]12-17-2024 Telephone encounter Note * Telephone Encounter - [...] URBAN BURNETT Pharmacy Information Pharmacy Address Telephone [place] [address] [address] [place] [address] [facility]12-17-2024 Miscellaneous Notes* Telephone Encounter - Alyson Barksdale RN - 09/27/2024 2:40 PM EST Patient notified. Alyson Barksdale RN The following approved medication requests have been transmitted electronically. Requested Prescriptions Signed Prescriptions Disp Refills metroNIDAZOLE (FLAGYL) 500 mg tablet 14 tablet 0 Sig: Take 1 tablet by mouth two times a day for 7 days. Authorizing Provider: URBAN BURNETT Pharmacy Information Pharmacy Address Telephone [facility] [phone] [place] [address] * Telephone Encounter - Urban Burnett MD [...] available have been explained. documented in this encounterSelect Medical Specialty [facility]12-17-2024 Telephone encounter Note * Telephone Encounter - Urban Burnett MD - 09/27/2024 2:33 PM EST EPT ordered. Urban Burnett MD [facility]12-17-2024 Instructions* Patient Instructions* Maddison Moreno LPN - [...] to prevent other STIs. documented in this encounterSelect Medical Specialty [facility]12-17-2024 Telephone encounter Note * Telephone Encounter - [...] professional. Treatment options available have been explained. [facility]12-03-2024 Instructions* Patient Instructions* Nohelia Oconnor MA - [...] avoid scratching at night. documented in this encounterSelect Medical Specialty Hospital [facility]12-03-2024 NoteHNO ID: [id number] Author: KARINA KWONG MD Service: ? Author Type: Physician Type: Progress Notes Filed: 09/13/2024 14:20 Note Text: Chief Deputy Clerk/Bailiff offered: Patient declines. Has not been with [...] discussed with the Patient or Patient's Authorized Infertility Medical Assistant. As applicable, any other physician, advance practice provider, medical student, or other health professional student that will be observing or involved in the sensitive examination for educational or training purposes was discussed with the Patient or Authorized Infertility Medical Assistant. The Patient or Authorized Infertility Medical Assistant has agreed to proceed with the sensitive examination. (Sensitive examination includes inspection and/or palpation of the breasts, pelvis, prostate and anorectal regions). BP 118/76 Wt 170 lb 12.8 oz (77.5kg) LMP 08/21/2023 GENERAL: Well developed, well nourished in no apparent distress ABDOMEN: soft, non-tender, and no masses PELVIC: external genitalia normal, normal Bartholin's glands, urethra, [place]'s glands, no vulvar lesions, no cervical lesions, [...] Will call with his information Karina Kwong [facility]12-03-2024 History of Present illness Narrative* Karina Kwong MD - 09/13/2024 1:34 PM EST Chief Deputy Clerk/Bailiff offered: Patient declines. Has not been with [...] discussed with the Patient or Patient's Authorized Infertility Medical Assistant. As applicable, any other physician, advance practice provider, medical student, or other health professional student that will be observing or involved in the sensitive examination for educational or training purposes was discussed with the Patient or Authorized Infertility Medical Assistant. The Patient or Authorized Infertility Medical Assistant has agreed to proceed with the sensitive examination. (Sensitive examination includes inspection and/or palpation of the breasts, pelvis, prostate and anorectal regions). BP 118/76 Wt 170 lb 12.8 oz (77.5kg) LMP 08/21/2023 GENERAL: Well developed, well nourished in no apparent distress ABDOMEN: soft, non-tender, and no masses PELVIC: external genitalia normal, normal Bartholin's glands, urethra, [place]'s glands, no vulvar lesions, no cervical lesions, [...] information Karina Kwong MD documented in this encounterSelect [facility]11-27-2024 Telephone encounter Note * Telephone Encounter - Karina Manning RN - 09/07/2024 3:46 PM EST Patient notified. Karina Manning RN [facility]11-27-2024 Miscellaneous Notes* Telephone Encounter - Karina Manning RN - 09/07/2024 3:46 PM EST Patient notified. Karina Manning RN * Telephone Encounter - Reagan Campos APRN.CNP - 09/07/2024 3:42 PM EST Will start episodic treatment. Rx sent. Take 1 g Valtrex daily for 5 days. No intercourse until 2 weeks after lesions have completely resolved. Recommend follow up to discuss suppressive therapy. Reagan Campos APRN.CNP * Telephone Encounter - Alyson Barksdale RN - 09/07/2024 3:08 PM EST Patient calling c/o HSV outbreak. Has one painful lesion. Asking if she needs appt or if she can get rx for medication without being seen? Pharmacy correct. Alyson Barksdale RN documented in this encounterSelect Medical [facility]ty [facility]11-27-2024 Telephone encounter Note * Telephone Encounter - Reagan Campos APRN.CNP - 09/07/2024 3:42 PM EST Will start episodic treatment. Rx sent. Take 1 g Valtrex daily for 5 days. No intercourse until 2 weeks after lesions have completely resolved. Recommend follow up to discuss suppressive therapy. Reagan Campos APRN.CNP [facility]11-27-2024 Telephone encounter Note* Telephone Encounter - Alyson Barksdale RN - 09/07/2024 3:08 PM EST Patient calling c/o HSV outbreak. Has one painful lesion. Asking if she needs appt or if she can get rx for medication without being seen? Pharmacy correct. Alyson Barksdale RN [facility]11-22-2024 Telephone encounter Note* Telephone Encounter - Ruben Vilchis RN - 09/02/2024 10:40 AM EST Pt notified and voiced understanding. Ruben Vilchis RN [facility]11-22-2024 Miscellaneous Notes* Telephone Encounter - Ruben Vilchis RN - 09/02/2024 10:40 AM EST Pt notified and voiced understanding. Ruben Vilchis RN * Telephone Encounter - Reagan Campos APRN.CNP - 09/02/2024 10:31 AM EST She can breastfeed while taking Flagyl. Recommend slowly weaning pumping/. Cool compresses and tight bra. Can trial Sudafed. Reagan Campos APRN.LORI * Telephone Encounter - Karina Manning RN [...] scribed? Karina Manning RN documented in this encounterSelect Medical Specialty [facility]11-22-2024 Telephone encounter Note * Telephone Encounter - Reagan Campos APRN.CNP - 09/02/2024 10:31 AM EST She can breastfeed while taking Flagyl. Recommend slowly weaning pumping/. Cool compresses and tight bra. Can trial Sudafed. Reagan Campos APRN.LORI [facility]11-22-2024 Telephone encounter Note* Telephone Encounter - Karina [...] medication be pre scribed? Karina Manning RN [facility]11-20-2024 Telephone encounter Note* Telephone Encounter - Alyson Barksdale RN - 2024 8:41 AM EST Patient notified. She has not had any new lesions that she noticed. Alyson Barksdale RN [facility]11-20-2024 Miscellaneous Notes* Telephone Encounter - Alyson Barksdale [...] her message would be sent to provider medical care evaluation specialist as EH is out of office today. Please advise in EH absence. Ruben Vilchis RN documented in this encounterSelect Medical Specialty [facility]11-20-2024 Telephone encounter Note * Telephone Encounter - Orly Holloway RN - 2024 8:32 AM EST Left message to call office. Orly Holloway RN [facility]11-20-2024 Telephone encounter Note* Telephone Encounter - Reagan Campos APRN.CNP - 2024 7:37 AM EST Culture was negative, but blood work shows positive IgM so she likely had a recent infection. Has she noticed any lesions since I saw her? Reagan Campos APRN.CNP [facility]11-19-2024 Telephone encounter Note* Telephone Encounter - Alyson Barksdale RN - 08/30/2024 2:26 PM EST Patient notified of positive trich result, not BV. Advised any sexual partner needs treatment too. She is also asking about the positive HSV blood work and what she needs to do next since the cultureof lesion was negative. Aware EH is back in office tomorrow. Alyson Barksdale RN [facility]11-19-2024 Telephone encounter Note* Telephone Encounter - Amarilis Berry APRN.CNP - 08/30/2024 2:19 PM EST BV positive. To treat with Flagyl 500mg PO BID for 7 days. 1) No alcohol during treatment and for 24 hours after last dose. 2) No intercourse during treatment. 3) Probiotic by mouth once daily for 30 days or as needed. Amarilis Berry APRN.CNP [facility]11-19-2024 Telephone encounter Note* Telephone Encounter - Ruben Vilchis RN - 08/30/2024 10:34 AM EST Pt states she saw lab results from 08/28/24 on Mychart and wanting to know what treatment consists of. Advised her message would be sent to provider medical care evaluation specialist as EH is out of office today. Please advise in EH absence. Ruben Vilchis RN [facility]11-18-2024 NoteHNO ID: [id number] Author: REAGAN CAMPOS APRN.CNP Service: ? Author Type: Nurse Practitioner Type: Progress Notes Filed: 08/29/2024 15:08 Note Text: Chief Deputy Clerk/Bailiff offered: Patient declines. 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 As applicable, any other physician, advance practice provider, medical student, or other health professional student that will be observing or involved in the sensitive examination for educational or training purposes was discussed with the Patient or Authorized Infertility Medical Assistant. The Patient or Authorized Infertility Medical Assistant has agreed to proceed with the sensitive [...] urethra, superior labia minora/vestibule normal Bartholin's glands, [place]'s glands, no vulvar lesions, no cervical lesions, [...] genital herpes To treat accordingly. Reagan Campos APRN.CNP Medical Decision Making: Problems: Low: Acute, uncomplicated illness or injury Data: Unique test(s) ordered: 3+ Risk: Low: Low risk from testing/treatment Medical Decision Making Level: 3 - Low .[facility] History of Present illness Narrative* Reagan Campos APRN.CNP - 08/29/2024 2:38 PM EST Chief Deputy Clerk/Bailiff offered: Patient declines. 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 As applicable, any other physician, advance practice provider, medical student, or other health professional student that will be observing or involved in the sensitive examination for educational or training purposes was discussed with the Patient or Authorized Infertility Medical Assistant. The Patient or Authorized Infertility Medical Assistant has agreed to proceed with the sensitive [...] urethra, superior labia minora/vestibule normal Bartholin's glands, [place]'s glands, no vulvar lesions, no cervical lesions, [...] genital herpes To treat accordingly. Reagan Campos APRN.COST CONSULTANT Medical Decision Making: Problems: Low: Acute, uncomplicated illness or injury Data: Unique test(s) ordered: 3+ Risk: Low: Low risk from testing/treatment Medical Decision Making Level: 3 - Low . documented in this encounterSelect [facility] History of Present illness Narrative* Tania Ann MD - 07/22/2024 2:42 PM EDT Chief Deputy Clerk/Bailiff offered: Patient declines. 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 As applicable, any other physician, advance practice provider, medical student, or other health professional student that will be observing or involved in the sensitive examination for educational or training purposes was discussed with the Patient or Authorized Infertility Medical Assistant. The Patient or Authorized Infertility Medical Assistant has agreed to proceed with the sensitive examination. (Sensitive examination includes inspection and/or palpation of the breasts, pelvis, prostate and anorectal regions). EXAM: BP 106/60 Wt 165 lb (74.8kg) LMP 08/21/2023 GENERAL: pleasant, female in no apparent distress HEENT: Normocephalic and atraumatic NECK: full range of motion DERMATOLOGY: Normal and without lesions PELVIC: external genitalia normal, normal Bartholin's glands, urethra, [place]'s glands, no vulvar lesions, no cervical lesions, [...] Low Tania Dawson MD documented in this encounterSelect [facility]09-13-[facility]24 History of Present illness Narrative* Mihir Albright MD - 06/24/2024 1:59 PM EDT Chief Deputy Clerk/Bailiff offered: Patient declines. VISIT Jackson Ny is a 23 year old year old here for visit. Delivery Summary: VAVD by RR on 05/07/2024 Male - [place] - 8 lb 1 oz ROS/ Recovery: Feeding: Breast feeding problems: None Menses since delivery: spotting Menstrual pattern prior to : Regular periods [place] since delivery: Not resumed Depression: denies symptoms [...] discussed with the Patient or Patient's Authorized Infertility Medical Assistant. As applicable, any other physician, advance practice provider, medical student, or other health professional student that will be observing or involved in the sensitive examination for educational or training purposes was discussed with the Patient or Authorized Infertility Medical Assistant. The Patient or Authorized Infertility Medical Assistant has agreed to proceed with the sensitive [...] external genitalia normal, normal Bartholin's glands, urethra, [place]'s glands, no vulvar lesions, no cervical lesions, [...] labetalol. Mihir Albright MD documented in this encounterSelect [facility]09-03-2024 Telephone encounter Note * Telephone Encounter - [...] BINTA CARCAMO Pharmacy Information Pharmacy Address Telephone [facility] [phone] [place] [address] [facility]09-03-2024 Miscellaneous Notes* Telephone Encounter - Alyson Barksdale RN - 06/14/2024 12:15 PM EDT Patient notified. Alyson Barksdale RN The following approved medication requests have been transmitted electronically. Requested Prescriptions Signed Prescriptions Disp Refills valACYclovir (VALTREX) 1 gram tablet 4 tablet 2 Sig: Take 2 tablets by mouth two times a day for 1 day. Authorizing Provider: BINTA CARCAMO Pharmacy Information Pharmacy Address Telephone [facility] [id number] [place] [id number] * Telephone Encounter - Binta Carcamo APRN.CNM [...] days. Alyson Barksdale RN documented [facility] encounter[facility] Telephone encounter Note * Telephone Encounter - Binta Carcamo APRN.CNM - 06/14/2024 12:06 PM EDT Recommend Valacyclovir 2 grams PO BID for one day. 2 refills. If recurring may need suppressive therapy. Binta Carcamo APRN.CNM [facility]09-03-2024 Telephone encounter Note* Telephone Encounter - Alyson [...] day for 5 days. Alyson Barksdale RN [facility]08-05-2024 History of Present illness Narrative* Berta Eldridge APRN.CNM - 05/16/2024 4:04 PM EDT EARLY VISIT Jackson Ny is a 23 year old here for 1 week visit. Currently monitoring blood pressures at home. Has had some elevated to 150's /100. Trying to remember to take BP medications. Denies any headaches, vision changes, SOB or [...] harming myself has occurred to me. Never [place] Depression Scale Total 2 Feeling nervous, anxious [...] issues Sleep: no sleep concerns, feels rested [place] since delivery: Not resumed Emotional support: Yes [...] needed Berta Eldridge APRN.CNM documented in this encounterSelect [facility] Telephone encounter Note * Telephone Encounter - Karina Manning RN - 05/13/2024 1:30 PM EDT Patient notified. Has PP BP check scheduled for Thursday. Karina Manning RN [facility]08-02-2024 Miscellaneous Notes* Telephone Encounter - Karina Manning [...] program). Karina Manning RN documented in this encounterSelect [facility]-2024 Telephone encounter Note * Telephone Encounter - Berta Eldridge APRN.CNM - 05/13/2024 1:20 PM EDT She should be taking the Labetalol twice daily. Give it some time to work since she just started. Follow up early next week and continue to monitor BP at home. Call if any readings >160/110. Berta Eldridge APRN.CNM [facility]08-02-2024 Telephone encounter Note* Telephone Encounter - Karina [...] HOSPITAL (blood pressure program). Karina Manning RN [facility]07-31-2024 History of Present illness Narrative* Berta Eldridge [...] issues Sleep: no sleep concerns, feels rested [place] since delivery: Not resumed Emotional support: Yes [...] medication Berta Eldridge APRN.CNM documented in this encounterSelect [facility]-31-2024 Telephone encounter Note * Telephone Encounter - Karina Manning RN - 05/11/2024 1:08 PM EDT Appointment with CP scheduled at 3:10 PM. Karina Manning RN [facility]07-31-2024 Miscellaneous Notes* Telephone Encounter - Karina Manning [...] Patient instructed to come in with Berta megan today at 3 PM for blood pressure check Urban Burnett MD documented in this encounterSelect [facility]-2024 Telephone encounter Note * Telephone Encounter - [...] Patient instructed to come in with Berta wongsenthil today at 3 PM for blood pressure check Urban Burnett MD [facility] Work Phone: 1(154) 933-905507-29-2024 History of Present illness Narrative* Alyson Barksdale RN - 05/09/2024 9:26 AM EDT Patient delivered via VAVD by Dr. Burnett on 05/07/24 at [facility]. See OB history. Alyson Barksdale RN documented in this encounterSelect [facility]07-26-[facility] History of Present illness Narrative* Urban Burnett MD - 05/06/2024 2:11 PM EDT TruBP Readings: 144/97 145/96 146/99 138/97 145/95 Average: 144/97 TO L&D for NST and preeclampsia eval. Urban Burnett MD documented in this encounterSelect [facility]07-26-2024 Instructions* Patient Instructions* Harika Galindo MA - 05/06/2024 1:53 PM EDT SEQUENTIAL SCREENINGS The [facility] offers sequential screenings for women who are [...] testing. It will require an appointment withour certified histologic technician. This is not an ultrasound performed [...] the above symptoms, contact our office at [phone] and ask to speak with anurse. After hours, you can call doctors registry at [phone] OR call [facility] at [phone] ask to have the doctor medical care evaluation specialist paged. If you consider this an emergency, dial 4--5 or go to your nearest emergency department. NEED HELP? Are you dealing with a violent or abusive relationship? Are you a victim of rape or sexual assult? Call [facility] ([place]) 24 hour Crisis Hotline: 602.748.6142 or 031-080-9352. MANUAL Your Guide to a Healthy manual is now on-line. Visit [email or web address] to download your free copy documented in this encounterSelect [facility]07-19-[facility]24 History of Present illness Narrative* Valentine Rojas [...] ER evaluation. KATE Latham documented in this encounterSelect [facility]07-19-2024 Note Indication Evaluation of growth. Evaluation of [...] 12 oz EFW by: Hadlock (HC-AC-FL) Extended Bulk Plant Supervisor 4.1 mm Extremities / Bony Struc FL [...] Shin RDMS Read By: Cynthia Farooq M.D.MATERNAL [id number] Miscellaneous Notes* Quick Notes - Reagan Campos APRN.COST CONSULTANT - 04/29/2024 2:45 PM EDT EH - [...] week or sooner as needed. Reagan Campos APRN.CNP documented in this encounterSelect [facility]07-19-2024 Progress note* Quick Notes - Reagan Campos [...] week or sooner as needed. Reagan Campos APRN.CNP [facility]07-19-2024 Instructions* Patient Instructions* Reagan Campos APRN.CNP - 04/29/2024 2:32 PM EDT How SMOKING [...] and other health problems. There is no safe level of smoking for your baby's health. [...] smoke. (This information is provided by the [facility] and is not intended to replace the medical advice of your doctor or health care provider. Please consult your health care provider for advice about a specific medical condition. For additional written health information, please call the Cancer Answer Line at [facility] Thursday - Thursday 8-4:30 for assistance: [phone]. Or [email or web address] SEQUENTIAL SCREENINGS The [facility] offers sequential screenings for women who are [...] testing. It will require an appointment withour certified histologic technician. This is not an ultrasound performed [...] the above symptoms, contact our office at [phone] and ask to speak with anurse. After hours, you can call doctors registry at [phone] OR call [facility] at [phone] ask to have the doctor medical care evaluation specialist paged. If you consider this an emergency, dial 9-1-0 or go to your nearest emergency department. NEED HELP? Are you dealing with a violent or abusive relationship? Are you a victim of rape or sexual assult? Call [facility] ([place]) 24 hour Crisis Hotline: 920.439.4732 or 744-969-7432. MANUAL Your Guide to a Healthy manual is now on-line. Visit [email or web address] to download your free copy documented in this encounterSelect [facility]07-09-2024 Progress note* Quick Notes - Binta Carcamo [...] RATIO -PTL precautions reviewed. Binta Carcamo APRN.CNM [facility]07-09-2024 Miscellaneous Notes* Quick Notes - Binta Carcamo [...] body armour. Increased swelling and went to [facility] and BP was 137/90 and repeat 140/92.Slight [...] reviewed. Binta Carcamo APRN.CNM documented in this encounterSelect [facility]07-09-2024 Instructions* Patient Instructions* Quinn De La O MA - 04/19/2024 2:28 PM EDT SEQUENTIAL SCREENINGS The [facility] offers sequential screenings for women who are [...] testing. It will require an appointment withour certified histologic technician. This is not an ultrasound performed [...] the above symptoms, contact our office at [phone] and ask to speak with anurse. After hours, you can call [employer] registry at [phone] OR call [facility] at [phone] ask to have the doctor medical care evaluation specialist paged. If you consider this an emergency, dial 91-3 or go to your nearest emergency department. NEED HELP? Are you dealing with a violent or abusive relationship? Are you a victim of rape or sexual assult? Call [facility] ([facility] 24 hour Crisis Hotline: 411.941.5888 or 395-509-4647. MANUAL Your Guide to a Healthy manual is now on-line. Visit [email or web address] to download your free copy documented in this encounterSelect [facility]07-02-2024 Progress note* Quick Notes - Mihir Albright [...] reviewed, Kick counts reviewed. Mihir Albright MD [facility]07-02-2024 Miscellaneous Notes* Quick Notes - Mihir Albright [...] reviewed. Mihir Albright MD documented in this encounterSelect [facility]07-02-2024 Instructions* Patient Instructions* Nohelia Oconnor MA - 04/12/2024 12:58 PM EDT SEQUENTIAL SCREENINGS The [facility] offers sequential screenings for women who are [...] testing. It will require an appointment withour certified histologic technician. This is not an ultrasound performed [...] the above symptoms, contact our office at [phone] and ask to speak with anurse. After hours, you can call doctors registry at [phone] OR call [facility] at [phone] ask to have the doctor medical care evaluation specialist paged. If you consider this an emergency, dial 06-12-1 or go to your nearest emergency department. NEED HELP? Are you dealing with a violent or abusive relationship? Are you a victim of rape or sexual assult? Call [facility] ([place]) 24 hour Crisis Hotline: 796.950.6974 or 299-996-0977. MANUAL Your Guide to a Healthy manual is now on-line. Visit [email or web address] to download your free copy documented in this encounterSelect [facility]07-01-2024 Telephone encounter Note * Telephone Encounter - Alyson Barksdale RN - 04/11/2024 1:19 PM EDT Patient notified. Alyson Barksdale RN [facility]07-01-2024 Miscellaneous Notes* Telephone Encounter - Alyson Barksdale [...] . Karina Manning RN documented in this encounterSelect [facility]07-01-2024 Telephone encounter Note * Telephone Encounter - Urban Burnett MD - 04/11/2024 12:56 PM EDT I would not be concerned but generally plain old water is the best for hydration. Urban Burnett MD [facility] Work Phone: 1(358) 350-672807-01-2024 Telephone encounter Note* Telephone Encounter - Karina Mannnig RN - 04/11/2024 12:51 PM EDT 33w3d Patient states she took a couple of sips of [employer] Electrolyte Hydration powder mix in water. On the package it states not recommenced in and to check with your doctor if you are . Karina Manning RN [facility]06-27-2024 Telephone encounter Note* Telephone Encounter - Shell Tucker RN - 04/07/2024 9:21 AM EDT Patient informed [facility]06-27-2024 Miscellaneous Notes* Telephone Encounter - Shell Tucker [...] 04/07/2024 8:39 AM EDT Ob patient is 78 c/o pain, swelling in b/l hands, difficulty grasping items with hands. Isalso c/o swelling in ankles, denies swelling in face, headache, epigastric pain, and vision changes. Patient discussed carpal tunnel with provider at appointment on 03/31 and wrist splints were discussed. Patient stated that she cannot to purchase and asking if a Rx can be written? documented in this encounterSelect [facility]06-27-2024 Telephone encounter Note * Telephone Encounter - Berta Eldridge APRN.CNM - 04/07/2024 9:03 AM EDT I sent RX for 2 wrist splints to pharmacy but it says it is not covered by insurance. Please notifypatient she will need to call and inquire about morris. Berta Eldridge APRN.CNM [facility]06-27-2024 Telephone encounter Note* Telephone Encounter - Maddison Moreno LPN - 04/07/2024 8:39 AM EDT Ob patient is 30 c/o pain, swelling in b/l hands, difficulty grasping items with hands. Isalso c/o swelling in ankles, denies swelling in face, headache, epigastric pain, and vision changes. Patient discussed carpal tunnel with provider at appointment on 03/31 and wrist splints were discussed. Patient stated that she cannot to purchase and asking if a Rx can be written? [facility]06-24-2024 Telephone encounter Note* Telephone Encounter - Elana Ceballos LPN - 04/04/2024 11:21 AM EDT Pt assisted to schedule follow up growth ultrasound at 36 weeks. Elana Ceballos LPN [facility]06-24-2024 Miscellaneous Notes* Telephone Encounter - Elana Ceballos [...] gestation. Berta Eldridge APRN.CNM documented in this encounterSelect [facility]06-24-2024 Telephone encounter Note * Telephone Encounter - Orly Holloway RN - 04/04/2024 10:20 AM EDT Left message to call office. Orly Holloway RN [facility]06-24-2024 Telephone encounter Note* Telephone Encounter - Orly Holloway RN - 04/04/2024 10:19 AM EDT ----- Message from Berta Eldridge APRN.CNM sent at 04/04/2024 8:50 AM EDT ----- Repeat growth in 4 weeks. Please assist with scheduling for 36 weeks gestation. Berta Eldridge APRN.CNM [facility]06-21-2024 Note Indication Evaluation of growth Impression REMOTE [...] 2 oz EFW by: Hadlock (HC-AC-FL) Extended Bulk Plant Supervisor 5.6 mm Extremities / Bony Struc FL [...] RDMS, RVT Read By: Naveen Ann M.D.MATERNAL [id number] Progress note * Quick Notes - Berta Eldridge APRN.YOU - 03/31/2024 1:11 PM EDT S: Jackson [...] or sooner if needed Berta Eldridge APRN.CNM [facility]06-20-2024 Miscellaneous Notes* Quick Notes - Berta Eldridge [...] needed Berta Eldridge APRN.CNM documented in this encounterSelect [facility]06-20-2024 Instructions* Patient Instructions* Quinn De La O MA - 03/31/2024 1:00 PM EDT SEQUENTIAL SCREENINGS The [facility] offers sequential screenings for women who are [...] testing. It will require an appointment withour certified histologic technician. This is not an ultrasound performed [...] the above symptoms, contact our office at [phone] and ask to speak with anurse. After hours, you can call doctors registry at [phone] OR call [facility] at [phone] ask to have the doctor medical care evaluation specialist paged. If you consider this an emergency, dial or go to your nearest emergency department. NEED HELP? Are you dealing with a violent or abusive relationship? Are you a victim of rape or sexual assult? Call [facility] ([place]) 24 hour Crisis Hotline: 994.961.6843 or 475-609-3917. MANUAL Your Guide to a Healthy manual is now on-line. Visit [email or web address] to download your free copy documented in this encounterSelect [facility]06-[facility]-2024 Telephone encounter Note * Telephone Encounter - Mihir Albright MD - 03/17/2024 12:28 PM EDT Needs 3hr GTT Mihir Albright MD [facility]06-06-2024 Miscellaneous Notes* Telephone Encounter - Mihir Albright MD - 03/17/2024 12:28 PM EDT Needs 3hr GTT Mihir Albright MD * Telephone Encounter - Maddison Moreno LPN - 03/17/2024 8:24 AM EDT Patient saw results of 28 week labs on mychart. Elevated 1 hour glucose. Please advise. documented in this encounterSelect [facility]-06-2024 Telephone encounter Note * Telephone Encounter - Karina Lay RN - 03/17/2024 9:40 AM EDT 3rd risk assessment form submitted 03/17/2024. Karina Lay RN [facility]06-06-2024 Miscellaneous Notes* Telephone Encounter - Karina Lay RN - 03/17/2024 9:40 AM EDT 3rd risk assessment form submitted 03/17/2024. Karina Lay RN documented in this encounterSelect [facility]06-06-2024 Telephone encounter Note * Telephone Encounter - Maddison Moreno LPN - 03/17/2024 8:24 AM EDT Patient saw results of 28 week labs on mychart. Elevated 1 hour glucose. Please advise. [facility]06-05-2024 Progress note* Quick Notes - Berta Eldridge APRN.CNM - [...] or sooner if needed Berta Eldridge APRN.CNM [facility]06-05-2024 Miscellaneous Notes* Quick Notes - Berta Eldridge [...] needed Berta Eldridge APRN.CNM documented in this encounterSelect Medical [facility]ty [facility]06-05-2024 History of Present illness Narrative* Kristina Rajan [...] severely ill: Yes Patient denies history of Guillain-Ashford Syndrome (a severe paralytic illness): Yes Tdap Adacel injection was given without incident. See immunizations for details of immunizations administered today. VIS sheet provided: Yes Provider Jazmyn was present in office at time of injection. Kristina Rajan MA documented in this encounterSelect Medical [facility]ty [facility]06-05-2024 Instructions* Patient Instructions* Kristina Rajan MA - 03/16/2024 2:22 PM EDT SEQUENTIAL SCREENINGS The [facility] offers sequential screenings for women who are [...] testing. It will require an appointment withour certified histologic technician. This is not an ultrasound performed [...] the above symptoms, contact our office at [phone] and ask to speak with anurse. After hours, you can call doctors registry at [phone] OR call [facility] at [phone] ask to have the doctor medical care evaluation specialist paged. If you consider this an emergency, dial 9-1-8 or go to your nearest emergency department. NEED HELP? Are you dealing with a violent or abusive relationship? Are you a victim of rape or sexual assult? Call [facility] ([place]) 24 hour Crisis Hotline: 110.241.3255 or 344-431-8670. MANUAL Your Guide to a Healthy manual is now on-line. Visit [email or web address] to download your free copy documented in this encounterSelect [facility]05-[facility]-2024 Telephone encounter Note * Telephone Encounter - Berta Edlridge APRN.CNM - 03/03/2024 11:55 AM EDT Rx sent. Berta Eldridge APRN.CNM [facility]05-23-2024 Miscellaneous Notes* Telephone Encounter - Berta Eldridge APRN.CNM - 03/03/2024 11:55 AM EDT Rx sent. Berta Eldridge APRN.CNM * Telephone Encounter - Alyson Barksdale RN - 03/01/2024 10:35 AM EDT 27w4d Patient is no longer residing at [facility] for rehab. Asking for rx for aspirin to be sent back [facility] pharmacy now. Previous one was already transferred once to [facility] for when she was at [facility] and not able to be transferred back again. Requested Prescriptions Pending Prescriptions Disp Refills aspirin, enteric coated (ECOTRIN LOW STRENGTH) 81 mg EC tablet 60 tablet 3 Sig: Take 2 tablets by mouth once daily. Alyson Barksdale RN documented in this encounterSelect Medical Specialty [facility]05-21-2024 Telephone encounter Note * Telephone Encounter - Alyson Barksdale RN - 03/01/2024 10:35 AM EDT 27w4d Patient is no longer residing at [facility] for rehab. Asking for rx for aspirin to be sent back [facility] pharmacy now. Previous one was already transferred once to [facility] pharmacy for when she was at [facility] and not able to be transferred back again. Requested Prescriptions Pending Prescriptions Disp Refills aspirin, enteric coated (ECOTRIN LOW STRENGTH) 81 mg EC tablet 60 tablet 3 Sig: Take 2 tablets by mouth once daily. Alyson Barksdale RN [facility]05-10-2024 Telephone encounter Note* Telephone Encounter - Karina Manning RN - 02/19/2024 1:00 PM EDT Letter prepared and faxed to the number provided. Karina Manning RN [facility]05-10-2024 Miscellaneous Notes* Telephone Encounter - Karina Manning RN - 02/19/2024 1:00 PM EDT Letter prepared and faxed to the number provided. Karina Manning RN * Telephone Encounter - Karen Langley - 02/19/2024 12:46 PM EDT [facility] is requiring a letter of proof of from OB practitioner. This would need to include her due date. Patient is requesting to have letter faxed to her place of employment, [employer], at [phone] Attn: Alpa. documented in this encounterSelect [facility]05-10-2024 Telephone encounter Note * Telephone Encounter - Karen Langley - 02/19/2024 12:46 PM EDT Brinda Mcpherson is requiring a letter of proof of from OB practitioner. This would need to include her due date. Patient is requesting to have letter faxed to her place of employment, [employer], at [phone] Attn: Alpa. [facility]05-08-2024 Progress note* Quick Notes - Dex Montesinos [...] meth) Continue routine [employer] Dex Montesinos MD [facility] Work Phone: 1(865) 881-317705-08-2024 Miscellaneous Notes* Quick Notes - Dex Montesinos [...] [employer] Dex Montesinos MD documented in this encounterSelect Medical [facility]ty [facility]05-08-2024 Instructions* Patient Instructions* Quinn De La OPAYAL - 02/17/2024 3:46 PM EDT SEQUENTIAL SCREENINGS The [facility] offers sequential screenings for women who are [...] testing. It will require an appointment withour certified histologic technician. This is not an ultrasound performed [...] the above symptoms, contact our office at [phone] and ask to speak with anurse. After hours, you can call doctors registry at [phone] OR call [facility] at [phone] ask to have the doctor medical care evaluation specialist paged. If you consider this an emergency, dial 9--8 or go to your nearest emergency department. NEED HELP? Are you dealing with a violent or abusive relationship? Are you a victim of rape or sexual assult? Call [facility] ([place]) 24 hour Crisis Hotline: 415.513.2970 or 134-787-6886. MANUAL Your Guide to a Healthy manual is now on-line. Visit [email or web address] to download your free copy documented in this encounterSelect [facility]04-[facility]-2024 Telephone encounter Note * Telephone Encounter - Karina Lay RN - 02/03/2024 11:17 AM EDT 2nd risk assessment form submitted 02/03/2024. Karina Lay RN [facility] [place] Miscellaneous Notes* Telephone Encounter - Karina Lay RN - 02/03/2024 11:17 AM EDT 2nd risk assessment form submitted 02/03/2024. Karina Lay RN documented in this encounterSelect [facility]04-23-[facility]24 Progress note* Quick Notes - Mihir Albright [...] reviewed, Kick counts reviewed. Mihir Albright MD [facility]04-23-2024 Miscellaneous Notes* Quick Notes - Mihir Albright [...] reviewed. Mihir Albright MD documented in this encounterSelect Medical Specialty [facility]04-23-2024 Instructions* Patient Instructions* Mihir Albright MD - 02/02/2024 1:03 PM EDT SEQUENTIAL SCREENINGS The [facility] offers sequential screenings for women who are [...] testing. It will require an appointment withour certified histologic technician. This is not an ultrasound performed [...] the above symptoms, contact our office at [phone] and ask to speak with anurse. After hours, you can call doctors registry at [phone] OR call [facility] at [phone] ask to have the doctor medical care evaluation specialist paged. If you consider this an emergency, dial or go to your nearest emergency department. NEED HELP? Are you dealing with a violent or abusive relationship? Are you a victim of rape or sexual assult? Call [facility] ([place]) 24 hour Crisis Hotline: 238.214.9872 or 332-789-6547. MANUAL Your Guide to a Healthy manual is now on-line. Visit [email or web address] to download your free copy Minimizing [...] avoid scratching at night. documented in this encounterSelect Medical Specialty [facility]04-17-2024 Miscellaneous Notes* Telephone Encounter - Alyson Barksdale [...] KARINA KWONG Pharmacy Information Pharmacy Address Telephone [place] [address] [id number] [place] [address] * Telephone Encounter - Karina [...] the residential facility part of [facility] and into [facility], so she does need prescriptions now. Patient requesting call back once done. Please file Flagyl and Azithromycin if okay. Alyson Barksdale RN * Telephone Encounter - Alyson Barksdale RN - 01/27/2024 1:04 PM EDT Left voicemail at [facility] to have patient call office. Alyson Barksdale RN * Telephone Encounter - Karina Kwong MD - 01/27/2024 12:39 PM EDT The ureaplasma can be treated with Azithromycin 1 gram in a single dose. * Telephone Encounter - Alyson Barksdale RN - 01/27/2024 12:09 PM EDT 22w5d Patient currently resides at [facility]. Received results via fax that she is positive for BV and ureaplasma parvum. Report to to review. In the past [facility] has treated patient with Flagyl as long as it is approved by OB provider. She has had BV 11/25 and 12/15. What does she need for ureaplasma? Please advise. Alyson Barksdale RN documented in this encounterSelect Medical [facility]ty [facility]04-03-2024 Miscellaneous Notes* Telephone Encounter - Indy Perez [...] clindamycin. Please advise. Call residence back at [phone]. Indy Perez, RN documented in this encounterSelect Medical Specialty [facility]03-26-2024 Miscellaneous Notes* Quick Notes - Mihir Albright [...] 180 Mihir Albright MD documented in this encounterSelect Medical Specialty Hospital [facility]03-26-2024 Miscellaneous Notes* Result Encounter Note - Urban Burnett MD - 01/05/2024 2:34 PM EDT Anatomy ultrasound reviewed. No abnormalities identified. Follow up as clinically indicated. Pleaseplace copy in ob chart. Urban Burnett MD documented in this encounterSelect Medical Specialty Hospital [facility]03-26-2024 Instructions* Patient Instructions* Harika Galindo MA - 01/05/2024 1:42 PM EDT SEQUENTIAL SCREENINGS The [facility] offers sequential screenings for women who are [...] testing. It will require an appointment withour certified histologic technician. This is not an ultrasound performed [...] the above symptoms, contact our office at [phone] and ask to speak with anurse. After hours, you can call doctors registry at [phone] OR call [facility] at [phone] ask to have the doctor medical care evaluation specialist paged. If you consider this an emergency, dial 6-3-8 or go to your nearest emergency department. NEED HELP? Are you dealing with a violent or abusive relationship? Are you a victim of rape or sexual assult? Call [facility] ([place]) 24 hour Crisis Hotline: 809.340.2373 or 195-636-0175. MANUAL Your Guide to a Healthy manual is now on-line. Visit [email or web address] to download your free copy documented in this encounterSelect Medical Specialty [facility]03-15-2024 Miscellaneous Notes* Telephone Encounter - Karina Manning RN - 12/25/2023 2:09 PM EDT Left message with bioinformatics software engineer as patient was not available that a prescription was sent. Karina Manning RN * Telephone Encounter - Berta Eldridge APRN.CNM - 12/25/2023 1:50 PM EDT Thank you. RX sent Berta Eldridge APRN.CNM * Telephone Encounter - Orly Holloway RN - 12/25/2023 1:48 PM EDT [facility] is what used to be [facility]. Pharmacy is up to date. Orly [...] white discharge. Would like RX sent to [facility]. Currently residing at [facility]. Karina Manning RN * Telephone Encounter - Alyson Barksdale RN - 12/25/2023 11:57 AM EDT Anatomy u/s time had to be moved to 1pm on 01/04 and she will now see KJ afterwards instead of ALYX. Left message for patient to call office to confirm she received the message. Alyson Barksdale RN documented in this encounterSelect Medical Specialty [facility] [place] [facility]03-06-2024 Miscellaneous Notes* Telephone Encounter - Orly Holloway [...] 16w5d Patient is currently residing at [facility]. They tested her for BV again and it was positive. She was last positive there 11/25 (see phone note) and completed Flagyl 500mg BID x7 days. Doesn't feel her symptoms every completely went away causing her to retest today. Asking if she can take Flagyl BID x7 days again? [facility] does treat and provide rx for this. Is that okay or does she need appointment here for further testing? Alyson Barksdale RN documented in this encounterSelect Medical Specialty [facility]02-22-2024 Miscellaneous Notes* Telephone Encounter - Telma Fraser RN - 12/03/2023 7:37 PM EST Patient calling regarding taking benadryl for hand rash with . Pt notified while waiting to speak to a provider, if symptoms worsen or if she is concerned call 911 or go to the ED Conferenced to Danika at [facility] [ ] to speak with provider medical care evaluation specialist for Caitlin Burnett . documented in this encounterSelect Medical Specialty Hospital [facility]02-20-2024 Miscellaneous Notes* Telephone Encounter - Alyson Barksdale [...] residing in [facility] at [facility]. Will have to call [phone] and ask for the patient. Orly Holloway RN documented in this encounterSelect Medical Specialty [facility]02-15-2024 Miscellaneous Notes* Quick Notes - Tania Ann MD - 11/26/2023 11:12 AM EST DM-Pt seen urgently for cramping- pt reports had pelvic cramping yesterday but it has since resolved. Denies vaginal Bleeding, Leaking fluid. Was dx with BV, needs to start treatment. Staying at [facility]- reports is very happy with program and doing well. Physical Exam: Gen: female in no apparent distress Abd: soft, Gravid. Non tender to palpation. See flow sheet A/P: 13.6 weeks 1) continue PNV and ASA 2) scheduled for anatomy us 3) Reassurance to start Flagyl for tx BV 4) RTO as scheduled. Tania Dawson MD documented in this encounterSelect Medical Specialty [facility]02-15-2024 Instructions* Patient Instructions* Josie HarikaPAYAL her - 11/26/2023 10:51 AM EST SEQUENTIAL SCREENINGS The [facility] offers sequential screenings for women who are [...] testing. It will require an appointment withour certified histologic technician. This is not an ultrasound performed [...] the above symptoms, contact our office at [phone] and ask to speak with anurse. After hours, you can call doctors registry at [phone] OR call [facility] at [phone] ask to have the doctor medical care evaluation specialist paged. If you consider this an emergency, dial 8-5-3 or go to your nearest emergency department. NEED HELP? Are you dealing with a violent or abusive relationship? Are you a victim of rape or sexual assult? Call [facility] ([place]) 24 hour Crisis Hotline: 346.732.6226 or 581-313-6267. MANUAL Your Guide to a Healthy manual is now on-line. Visit [email or web address]/HealthyPregnancyGuide to download your free copy documented in this encounterSelect Medical Specialty [facility]02-15-2024 Miscellaneous Notes* Telephone Encounter - Karina Manning [...] treatment. Karina Manning RN documented in this encounterSelect Medical Specialty [facility]02-07-2024 Miscellaneous Notes* Telephone Encounter - Orly Holloway RN - 11/18/2023 11:15 AM EST Patient notified and voiced understanding. The following approved medications have been transmitted electronically. Requested Prescriptions Signed Prescriptions Disp Refills aspirin, enteric coated (ECOTRIN LOW STRENGTH) 81 mg EC tablet 60 tablet 6 Sig: Take 2 tablets by mouth once daily. Authorizing Provider: URBAN BURNETT Pharmacy Information Pharmacy Address Telephone [facility] [phone] [place] [address] Orly Holloway RN * Telephone Encounter - Urban Burnett MD - 11/18/2023 11:06 AM EST sent. thank you. my appologies. Urban Burnett MD * Telephone Encounter - Alyson Barksdale RN - 11/18/2023 10:14 AM EST 12w5d Saw RR yesterday and requested that aspirin rx be sent to [facility]. Medication shows only as a med upate and not like a prescription was sent. Please file. Patient requesting call back once completed. Alyson Barksdale RN documented in this encounterSelect Medical Specialty [facility]02-06-2024 Miscellaneous Notes* Quick Notes - Urban Burnett [...] treatment. Urban Burnett M.D. documented in this encounterSelect Medical Specialty Hospital [facility] [place] [facility]02-06-2024 Instructions* Patient Instructions* Sirena Sharma Ma - 11/17/2023 10:17 AM EST SEQUENTIAL SCREENINGS The [facility] offers sequential screenings for women who are [...] testing. It will require an appointment withour certified histologic technician. This is not an ultrasound performed [...] the above symptoms, contact our office at [phone] and ask to speak with anurse. After hours, you can call doctors registry at [phone] OR call [facility] at [phone] ask to have the doctor medical care evaluation specialist paged. If you consider this an emergency, dial 9-1-7 or go to your nearest emergency department. NEED HELP? Are you dealing with a violent or abusive relationship? Are you a victim of rape or sexual assult? Call [facility] ([facility] 24 hour Crisis Hotline: 909.177.6179 or 114-765-5334. MANUAL Your Guide to a Healthy manual is now on-line. Visit [email or web address]/HealthyPregnancyGuide to download your free copy documented in this encounterSelect Medical [facility]ty [facility]01-11-2024 History of Past illness Narrative* Problem Noted Date Diagnosed Date Resolved Date with uncertain que es in first trimester 10/22/2023 01/05/2024 Overview: POCUS consistent with LMP. Nausea and vomiting during 10/22/2023 01/05/2024 Overview: Vitamin B6 and Unisom doses reviewed. To notify if prescription is needed. documented as of this encounter (statuses as of 01/05/2024) [facility] History of Past illness Narrative* Problem Noted Date Diagnosed Date Resolved Date with uncertain que es in first trimester 10/22/2023 01/05/2024 Overview: POCUS consistent with LMP. Nausea and vomiting during 10/22/2023 01/05/2024 Overview: Vitamin B6 and Unisom doses reviewed. To notify if prescription is needed. documented as of this encounter (statuses as of 01/05/2024) [facility] History of Past illness Narrative* Problem Noted Date Diagnosed Date Resolved Date with uncertain que es in first trimester 10/22/2023 01/05/2024 Overview: POCUS consistent with LMP. Nausea and vomiting during 10/22/2023 01/05/2024 Overview: Vitamin B6 and Unisom doses reviewed. To notify if prescription is needed. documented as of this encounter (statuses as of 01/14/2024) [facility] History of Past illness Narrative* Problem Noted Date Diagnosed Date Resolved Date with uncertain que es in first trimester 10/22/2023 01/05/2024 Overview: POCUS consistent with LMP. Nausea and vomiting during 10/22/2023 01/05/2024 Overview: Vitamin B6 and Unisom doses reviewed. To notify if prescription is needed. documented as of this encounter (statuses as of 01/20/2024) [facility] History of Past illness Narrative* Problem Noted Date Diagnosed Date Resolved Date with uncertain que es in first trimester 10/22/2023 01/05/2024 Overview: POCUS consistent with LMP. Nausea and vomiting during 10/22/2023 01/05/2024 Overview: Vitamin B6 and Unisom doses reviewed. To notify if prescription is needed. 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 Amarilis Berry APRN.CNP documented in this encounterSelect Medical Specialty [facility]03-20-2023 Miscellaneous Notes* Telephone Encounter - Orly Holloway RN - 12/29/2022 8:49 AM EDT See phone encounter dated 12/29/2022. Orly Holloway RN documented in this encounterSelect Medical Specialty [facility]03-17-2023 History of Present illness Narrative* Amarilis Berry APRN.CNP - 12/26/2022 2:30 PM EDT Chief Deputy Clerk/Bailiff offered: Patient declines. 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 History Comments: Sexual Activity: Yes; Male; Nexplanon [...] external genitalia normal, normal Bartholin's glands, urethra, [place]'s glands, no vulvar lesions, no cervical lesions, [...] Level: 3 - Low documented in this encounterSelect Medical [facility]ty [facility]01-30-2023 History of Present illness Narrative* Elsa Bro MD - 11/10/2022 5:40 PM EST Reason for Visit Patient presents with: Follow Up: urgent care- hands bilateral swollen Jackson yN is a 22 year old female who [...] F) Resp 14 Ht 167.6 cm (5' 6) Wt 82.6 kg (182 lb) LMP 08/08/2022 [...] complaints Elsa Bro MD documented in this encounterSelect Medical Specialty [facility]01-29-2023 History of Present illness Narrative* KATE Latham [...] Wt 83.5 kg (184 lb) LMP 08/08/2022 TeW895% BMI 29.70 kg/m Physical Exam Vitals and [...] ER evaluation. KATE Tidwell documented in this encounterSelect Medical [facility]ty [facility]01-26-2023 Hospital Discharge instructions Patient Education 11/06/2022 18:07:59 [...] by scratching (the sores may become infected) [place] created by mites traveling under the skin, [...] for more than 2 weeks after treatment. [id number] The [employer]. [address] [place] [address], [place] [address]. All rights reserved. This information is not intended as a substitute for professional medical care. Always follow yourhealthcare professional's instructions. Follow Up Care 11/06/2022 17:57:32 With:Follow up with primary care provider Address:Unknown When:2-4 days [facility] Dustin Wynn 01-26-2023 Emergency department Discharge summary Discharge Instructions Thank you for allowing [facility] to assist you with your healthcare needs. [...] by scratching (the sores may become infected) [place] created by mites traveling under the skin, [...] for more than 2 weeks after treatment. [id number] The [employer]. [address] [place] [address]. All rights reserved. This information is not intended as a substitute for professional medical care. Always follow yourhealthcare professional's instructions. Additional Information VACCINATE! IT SAVES LIVES! Members of the community who have not yet received the COVID-19 vaccine and would like to receive it can visit one of [facility] vaccine clinics. There are many vaccine clinic locations within the [facility]. For locations and available times, please visit [email or web address]. It is important to note that some COVID mobile vaccine clinics are held outdoors and may be canceled in rainy orstormy conditions. To learn more about pediatric vaccinations (ages 5-11), we invite you to visit the [facility] webpage. [email or web address] learn more about the COVID-19 vaccine, we invite you to visit the [facility] website for a list of frequently asked questions. [email or web address]/[email or web address] _[email or web address].pdf [facility] Patient Portal Access Instructions: Stay connected with your healthcare team and access your personal medical information anytime with the [facility] Patient Portal. If you would like a full copy of your medical records please contact the [facility] Medical Records Department Thursday through Thursday between 8a.m. and 4:30p.m. Please follow the directions below to access the portal: 1.Access the email account you provided upon registration to the [facility].2.Look for an invitation email from [facility].3.Open the email and access the invitation link: Accept Invitation to [facility]4.Fill in the required sampson to create your account. Sign into [email or web address] with your username and password that you [...] you will allow to register on the [facility] Patient Portal for access to your information. You can also access the [facility] Patient Portal on the [employer]. Simply click on Health Records under [employer] and then click on the [employer] logo. HOW TO SAFELY DISPOSE OF PRESCRIPTION [...] Call your local pharmacy or go to http://[employer].World Wide Packets/1A5Wx2r to find one close to you.3.Make use of household items: Use cat litter or old coffee grounds to dispose medications if other options arenot available. Mix your drugs with these household products, seal them in an airtight container andthrow it into the garbage. Call [facility]: [phone] to be sure your drugs can be [...] am aware that I should contactmy doctor. Patient/Infertility Medical Assistant Signature: Date/Time: Relationship to Patient: Witness Name/Signature: Date/Time: [facility]11-18-2022 History of Present illness Narrative * Amarilis Berry APRN.[facility] - 08/29/2022 9:05 AM EST Giorgio is [...] 24 hours. Contraceptive plans none Amarilis Berry APRN.CNP documented in this encounterSelect Medical [facility]ty [facility]10-20-2022 Miscellaneous Notes* Telephone Encounter - Alyson Barksdale [...] patient. Alyson Barksdale RN documented in this encounterSelect Medical Specialty [facility]09-21-2022 Miscellaneous Notes* Telephone Encounter - Alyson Barksdale [...] other questions or concerns. documented in this encounterSelect Medical Specialty [facility]09-20-2022 History of Present illness Narrative* Berta Eldridge APRN.CNM - 07/01/2022 10:32 AM EDT Chief Deputy Clerk/Bailiff offered: Patient declines. 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 Berta Eldridge APRN.CNM documented in this encounterSelect Medical Specialty [facility]09-15-2022 Miscellaneous Notes* Telephone Encounter - Karina Manning RN - 06/26/2022 2:57 PM EDT Patient returned call. Notified of appointment change. * Telephone Encounter - Karina Amaya - 06/26/2022 1:16 PM EDT Provider wants patient to have Annual Exam first. Appointment was changed to Annual. Called patientto inform her the appointment was changed. No answer or voicemail. Karina Amaya documented in this encounterSelect Medical Specialty [facility]09-12-2022 History of Present illness Narrative* Tyler Salmon APRN.COST CONSULTANT - 06/23/2022 2:46 PM EDT Images from [...] MG TABLET Agrees to plan Tyler Salmon APRN.LORI documented in this encounterSelect Medical Specialty [facility]09-03-2022 Hospital Discharge instructions Additional Instructions 1. Salt water gargles 4-6 times a day. 2. Chloraseptic spray or Cepastat lozenges for throat discomfort as instructed on [facility] Work Phone: 1(564) 388-984507-28-2022 History of Present illness Narrative* Linda Felton APRN.LORI - 05/08/2022 3:24 PM EDT Images from the original note were not included. Subjective HPI Jackson Ny is a 21 year old female who presents with left sided neck pain. States she hashad this on and off for a while, saw an ENT who told her she [...] Constitutional: Appearance: Normal appearance. HENT: Mouth/Throat: Lips: [place]. Mouth: Mucous membranes are moist. Pharynx: Oropharynx [...] ENT Linda Felton APRN.CNP documented in this encounterSelect Medical Specialty [facility]07-28-2022 Instructions* Patient Instructions* Linda Felton APRN.CNP - 05/08/2022 3:23 PM EDT ASSESSMENT/PLAN: 1. Throat pain in adult - ICD9: 784.1, ICD10: R07.0 (primary diagnosis) - CONSULT TO ENT 2. Swollen tonsil - ICD9: 474.11, ICD10: J35.1 - CONSULT TO ENT Linda Felton APRN.CNP documented in this encounterSelect Medical Specialty [facility]06-20-2022 History of Present illness Narrative* Ibis Dunne [...] sooner. Ibis Dunne PA-C documented in this encounterSelect Medical Specialty [facility]04-28-2022 Instructions* Patient Instructions* Binta Hatahway APRN.CNP - 02/06/2022 1:13 PM EDT Patient instructed to: * Use cold compresses, 20 minutes 4-6 times per day * Use [place] Solution and Aveeno products as needed. * Wash all clothes. * Return to primary care provider if no relief in 3-4 days. [facility] History of Present illness Narrative* Binta Hathaway APRN.CNP - 02/06/2022 1:10 PM EDT This note was created using [employer]. Subjective Jackson Ny is a 21 year [...] history is provided by the patient. No sign language translator was used. Rash This is a new [...] Acyclovir Follow up with PCP Binta Hathaway APRN.COST CONSULTANT documented [facility] History of Present illness Narrative* Lg Rene [...] improving. Lg Rene MD documented [facility] History of Present illness Narrative* Alexander Andrew [...] with an orthopedic doctor. Alexander Andrew MD /[id number] [facility] File#: [id number] END OF DOCUMENT / CHANGE LOG FOLLOWS Last Edited By Elec. Signed By Alexander Andrew MD, Mark MD #DELORES on 07/31/2021 09:43 ET on 07/31/2021 09:43 ET Revision Number - 2 ^^^ Verified/Reviewed by 07/31/21942 [facility] PATIENT NAME: JACKSON [place] [address] [place] MEDICAL REC #: [id number] [place] [address] [facility] PHYS[facility]IAN documented in this encounterWinnie ClinicDischarge summary Author Luis Enrique Bautista [facility] January 16, 2023 6:21am Note Date/Time January 16, 2023 6:12 am [facility] Medical Records Department [address] [place] [address] Emergency Department Summary 01/16/23 MR#: [id number] Acct: [id number] Name: JACKSON [place] Rep #:[id number] : [...] was placed on an antibiotic that she had to take 4 times a day. She states that because of the recurrent nature of the antibiotic she missed multiple doses. She states she is unsure if she ever got truly better from the previous infection. She states now in the last 1 to 2 days she has had urinary frequency urgency and dysuria. She is concerned for repeat UTI. She denies anyvaginal discharge or concern for STD or [facility] Medical History Asthma History of pneumonia [...] Clarity Cloudy Urine pH 8.0 Ur Specific [place] 1.015 Urine Protein 30 H Urine Glucose [...] your Primary Care Provider. Call [facility] ([phone]) or report to the closest Emergency Room. Call 911 if necessary. 01/16/23620 <Electronically signed by Luis Enrique Bautista DO> Cosigner Signature (if applicable): CC: Elsa Bro MD ~ Signed [facility] Work Phone: Evaluation + Plan note No data available for this section [facility] Evaluation note* Diagnosis Rash- Primary Rash and other nonspecific skin eruption documented in this encounter [facility]* Diagnosis Dermatitis- Primary Contact dermatitis and other eczema, due to unspecified cause Aphthous ulcer of mouth Oral aphthae documented in this encounter [facility]* Diagnosis Sore throat- Primary Acute pharyngitis documented in this encounter [facility] noteNo assessment information availableWMercy Health St. [facility] Work Phone: Evaluation note* Diagnosis Throat pain in adult- Primary Swollen tonsil Hypertrophy of tonsils alone documented in this encounter [facility]* Diagnosis Sore throat- Primary Acute pharyngitis Toothache Unspecified disorder of the teeth and supporting structures Feared condition not demonstrated Person with feared complaint in whom no diagnosis was made documented in this encounter [facility]* Diagnosis Encounter for gynecological examination (general) [...] implantable subdermal contraceptive documented in this encounter [facility]* Diagnosis Encounter for Nexplanon removal- Primary Surveillance of previously prescribed implantable subdermal contraceptive documented in this encounter [facility]* Diagnosis Scabies- Primary Swelling of both hands documented in this encounter [facility]* Diagnosis Swelling of both hands- Primary documented in this encounter [facility]* Diagnosis Dysuria- Primary Screen for STD (sexually transmitted disease) Screening examination for venereal disease documented in this encounter [facility]* Diagnosis Encounter for gynecological examination (general) (routine) without abnormal findings- Primary Recurrent cold sores Herpes simplex without mention of complication Screening for STDs (sexually transmitted diseases) Screening examination for venereal disease documented in this encounter [facility]* Diagnosis 12 weeks gestation of - Primary state, incidental Encounter for supervision of normal first in first trimester Supervision of normal first [facility] Diagnosis Supervision of high risk in second trimester- Primary Unspecified high-risk Tobacco smoking complicating in first trimester Tobacco use disorder complicating , childbirth, or the puerperium, antepartum condition or complication 13 weeks gestation of state, incidental documented in this encounter [facility]* Diagnosis Encounter for anatomic survey- Primary 12 weeks gestation of state, incidental Encounter for supervision of normal first in first trimester Supervision of normal first 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) documented in this encounter [facility]* Diagnosis 19 weeks gestation of - Primary state, incidental Supervision of high risk in second trimester Unspecified high-risk documented in this encounter [facility]* Diagnosis 23 weeks gestation of - Primary state, incidental Supervision of high risk in second trimester Unspecified high-risk Vaginal itching Pruritus of genital organs documented in this [facility]* Diagnosis Supervision of high risk in second trimester- Primary Unspecified high-risk 25 weeks gestation of state, incidental Screening for STD (sexually transmitted disease) Screening examination for venereal disease documented in this encounter [facility]* Diagnosis 29 weeks gestation of - Primary state, incidental Need for vaccination Need for prophylactic vaccination and inoculation against unspecified single disease Supervision of high risk in second trimester Unspecified high-risk Gastroesophageal reflux disease without esophagitis Esophageal reflux documented in this encounter [facility]* Diagnosis Abnormal maternal glucose tolerance, antepartum- Primary Elevated glucose tolerance test Impaired glucose tolerance test documented in this encounter [facility]* Diagnosis Supervision of high risk in third trimester- Primary Unspecified high-risk 31 weeks gestation of state, incidental Tobacco smoking complicating in first trimester Tobacco use disorder complicating , childbirth, or the puerperium, antepartum condition or complication Gastroesophageal reflux disease without esophagitis Esophageal reflux Anemia during in third trimester documented in this encounter [facility]* Diagnosis Suspected problem with growth not found- Primary Supervision of high risk in third trimester Unspecified high-risk 31 weeks gestation of state, incidental documented in this encounter [facility]* Diagnosis 33 weeks gestation of - Primary state, incidental Supervision of high risk in third trimester Unspecified high-risk documented in this encounter [facility]* Diagnosis Supervision of high risk in third trimester- Primary Unspecified high-risk 34 weeks gestation of state, incidental Anemia during in third trimester Elevated BP without diagnosis of hypertension documented in this encounter [facility]* Diagnosis Encounter for ultrasound to check [...] this encounter [facility]* Diagnosis Encounter for supervision of high [...] or unspecified fetus documented in this encounter [facility]* Diagnosis Eustachian tube dysfunction, bilateral- Primary documented in this encounter [facility]* Diagnosis 37 weeks gestation of - Primary state, incidental Encounter for supervision of high risk in third trimester, antepartum documented in this encounter [facility]* Diagnosis Pre-eclampsia in third trimester- Primary Mild or unspecified pre-eclampsia, antepartum Care and examination of lactating mother Elevated blood pressure reading Elevated blood pressure reading without diagnosis of hypertension BP check Screening for hypertension documented in this encounter [facility]* Diagnosis Care and examination of lactating mother- Primary Elevated blood pressure reading Elevated blood pressure reading without diagnosis of hypertension BP check Screening for hypertension 2 weeks follow-up [facility]* Diagnosis Recurrent cold sores Herpes simplex without mention of complication documented [facility] this [facility]* Diagnosis care and examination- Primary Routine follow-up Encounter for screening for malignant neoplasm of cervix Screening for malignant neoplasm of the cervix Pre-eclampsia in third trimester Mild or unspecified pre-eclampsia, antepartum [facility]* Diagnosis Urinary frequency- Primary Vaginal discharge Leukorrhea, not specified as infective Pelvic pressure in female Other specified symptom associated with female genital organs [facility]* Diagnosis Screen for STD (sexually transmitted disease)- Primary Screening examination for venereal disease Vaginal discharge Leukorrhea, not specified as infective Vaginal itching Pruritus of genital organs [facility]* Diagnosis HSV (herpes simplex virus) infection- Primary Herpes simplex without mention of complication [facility]* Diagnosis Vaginal discharge- Primary Leukorrhea, not specified as infective [facility]* Diagnosis Trichomoniasis- Primary Trichomoniasis, unspecified [facility]* Diagnosis Recurrent cold sores Herpes simplex without mention of complication [facility]* Diagnosis Breakthrough bleeding on Nexplanon- Primary Metrorrhagia [facility]* Diagnosis Elevated TSH- Primary Nonspecific abnormal results of thyroid function study [facility]* Diagnosis Acute otitis media, left- Primary Unspecified otitis media COVID-19 [facility]* Diagnosis Diarrhea, unspecified type- Primary Dysfunction of left eustachian tube Dysfunction of Eustachian tube [facility]* Diagnosis Acquired hypothyroidism- Primary Unspecified hypothyroidism Elevated TSH Nonspecific abnormal results of thyroid function study documented [facility] this encounter [facility]* Diagnosis Vaginal yeast infection- Primary Candidiasis of vulva and vagina Viral illness Unspecified viral infection, in conditions classified elsewhere and of unspecified site [facility]* Diagnosis Vaginal discharge- Primary Leukorrhea, not specified as infective Vaginal itching Pruritus of genital organs Recurrent genital herpes Genital herpes, unspecified documented in this encounter [facility] note* Diagnosis Recurrent genital herpes- Primary Genital herpes, unspecified documented in this encounter [facility] note* Diagnosis Elevated TSH Nonspecific abnormal results of thyroid function study Acquired hypothyroidism Unspecified hypothyroidism documented in this encounter [facility] note* Diagnosis Hypothyroidism, unspecified type Vulvar pruritus Pruritus of genital organs Presence of subdermal contraceptive implant Presence of subdermal contraceptive device documented in this encounter [facility] note* Diagnosis Nexplanon removal- Primary Surveillance of previously prescribed implantable subdermal contraceptive documented in this encounter [facility] note* Diagnosis Acquired hypothyroidism- Primary Unspecified hypothyroidism documented in this encounter [facility] note* Diagnosis Nexplanon removal- Primary Surveillance of previously prescribed implantable subdermal contraceptive documented in this encounter [facility] note* Diagnosis Nausea and vomiting, unspecified vomiting type- Primary Encounter to obtain excuse from work documented in this encounter [facility] note* Diagnosis Annual physical exam- Primary Routine general medical examination at a health care facility Hypothyroidism, unspecified type Heat intolerance Unspecified effects of heat and light Diarrhea, unspecified type Nausea Nausea alone Other fatigue documented in this encounter [facility] note* Diagnosis Elevated TSH Nonspecific abnormal results of thyroid function study Acquired hypothyroidism Unspecified hypothyroidism [facility] Additional Instructions Please take the antibiotic as directed to help resolve your urinary tract infection. If you have worsening of symptoms or any further concerns please return to the hospital for repeat evaluationWMercy Health [facility] Work Phone: Reason for referral (narrative)* Outpatient Procedure (Routine) - Pending Review Specialty Diagnoses / Procedures Referred By Katy hermosillo Referred To Contact [facility] Diagnoses Insertion of Nexplanon Procedures NEXPLANON INSERTION ETONOGESTREL IMPLANT SYSTEM INSERT DRUG IMPLANT DEVICE Berta Eldridge APRN.NOE [address] [address] [facility] [address] [place] [address] Referral ID Status Reason Start Date Expiration Date Visits Requested Visits Authorized [id number] Pending Review Auto-Generat ed Referral 07/01/2022 07/01/2023 1 1 * Outpatient Procedure (Routine) - Pending Review Specialty Diagnoses / Procedures Referred By Contac t Referred To Contact [facility] Diagnoses Nexplanon removal Procedures NEXPLANON REMOVAL REMOVAL NON-BIODEGRADABLE DRUG DELIVERY IMPLANT Berta Eldridge APRN.CNM [address] [place] [address] [address] Referral ID Status Reason Start Date Expiration Date Visits Requested Visits Authorized [id number] Pending Review Auto-Generat ed Referral 07/01/2022 07/01/2023 1 1 [facility] for referral (narrative)* Diagnostic Procedure Only (Routine) - Authorized Specialty Diagnoses / Procedures Referred By Contac t Referred To Contact [facility] Diagnoses 12 weeks gestation of Encounter for supervision of normal first in first trimester Procedures OBSTETRIC ULTRASOUND WHI US PREG UTERUS AFTER 1ST TRIMEST GESTATION Urban Burnett MD [address] [place] [address] [address] Referral ID Status Reason Start Date Expiration Date Visits Requested Visits Authorized [id number] Authorized Auto-Generat ed Referral 11/17/2023 11/16/2024 1 1 [facility] for referral (narrative)* Diagnostic Procedure Only (Routine) - Authorized Specialty Diagnoses / Procedures Referred By Contac t Referred To Contact [facility] Diagnoses Supervision of high risk in third trimester 31 weeks gestation of Procedures OBSTETRIC ULTRASOUND WHI US PREG UTERUS AFTER 1ST TRIMEST GESTATION Berta Eldridge APRN.CNM [address] [place] [address] [facility] [address] [place] [address] Referral ID Status Reason Start Date Expiration Date Visits Requested Visits Authorized [id number] Authorized Auto-Generat ed Referral 03/31/2024 03/31/2025 5 1 [facility] for referral (narrative)* Diagnostic Procedure Only (Routine) - New Request Specialty Diagnoses / Procedures Referred By Contac t Referred To Contact [facility] Diagnoses Decreased movements in third trimester, single or unspecified fetus Procedures BIOPHYSICAL PROFILE US I BIOPHYSICAL PROFILE NON-STRESS TESTING Reagan Campos APRN.CNP [address] [place] [address] [facility] [address] [place] [address] Referral ID Status Reason Start Date Expiration Date Visits Requested Visits Authorized [id number] New Request Auto-Generat ed Referral 04/29/2024 04/29/2025 10 1 [facility] for referral (narrative)No reason for referral information availableWMercy Health St. [facility] Work Phone: Summary Purpose Family History No Family History Records Found Relationship Condition Age at Onset Recorded Date/T will mother Depression Unknown Substance abuse Unknown brother Depression Unknown grandfather Substance abuse Unknown Advance Directives No Advanced Directives Records Found Advance Directive Response Recorded Date/ Time Living Will No May 08, 2022 1:03am Power of Community Nurse No May 08 1:03am Advance Directive Response Recorded Date/ Time Living Will No June 14 8:44pm Power of Community Nurse No June 14, 2022 8:44pm Advance Directive Response Recorded Date/ Time Living Will No January 16, 2023 5:16am Power of Community Nurse No January 16 5:16am Advance Directive Response Recorded Date/ Time Living Will No March 12, 2023 5 :43pm Power of Community Nurse No March 12, 2023 5:43pm Advance Directive Response Recorded Date/ Time Do you have a Healthcare Power of Community Nurse? No April 15, 2025 5:35pm Chief Complaint [...] Swollen tonsil Procedures CONSULT TO ENT OFFICE/OUTPATIENT [facility] 60-74 MINUTES Linda Felton, ANVIL WORKER.COST CONSULTANT [address] [place] [address] Referral ID Status Reason Start Date Expiration Date Visits Requested Visits Authorized [id number] Authorized PCP Requested Referral 05/08/2022 05/08/2023 1 1 Specialty Diagnoses / Procedures Referred By Contac t Referred To Contact Diagnoses Pre-eclampsia in third trimester Procedures CONSULT TO PREVENTIVE CARD OFFICE/OUTPATIENT [facility] 60 MINUTES Mihir Albright MD [address] [place] [address] Referral ID Status Reason Start Date Expiration Date Visits Requested Visits Authorized [id number] Authorized PCP Requested Referral 06/24/2024 06/24/2025 1 1 Specialty Diagnoses / Procedures Referred By Contac t Referred To Contact Endocrinology Diagnoses Elevated TSH Procedures CONSULT TO ENDOCRINOLOGY OFFICE/OUTPATIENT [facility] 60 MINUTES Reagan Campos ANVIL WORKER.COST CONSULTANT [address] [place] [address] Referral ID Status Reason Start Date Expiration Date Visits Requested Visits Authorized [id number] Pending Review PCP Requested Referral 10/27/2024 10/27/2025 1 1 Health Concerns Problem Noted Date Diagnosed Date [facility] Education - [place]ON 10/22/2023 [place] - [place] 10/22/2023 Problem Noted Date Diagnosed Date [facility] Education - [place] 10/22/2023 [place] - [place] 10/22/2023 Problem Noted Date Diagnosed Date [facility] Education - [place] 10/22/2023 Education - [place] 10/22/2023 Problem Noted Date Diagnosed Date [facility] Education - [place]ON 10/22/2023 Education - [place] 10/22/2023 Problem Noted Date Diagnosed Date [facility] Education - [facility] 10/22/2023 Education - [place] 10/22/2023 Problem Noted Date Diagnosed Date [facility] Education - [facility] 10/22/2023 Education - [place] 10/22/2023 Active Problems Noted Date Diagnosed Date [facility] Education - [facility] 10/22/2023 Education - [place] 10/22/2023 Active Problems Noted Date Diagnosed Date [facility] Education - [facility] 10/22/2023 Education - [place] 10/22/2023 Active Problems Noted Date Diagnosed Date [facility] Education - [facility] 10/22/2023 Education - [place] 10/22/2023 Active Problems Noted Date Diagnosed Date [facility] Education - [facility] 10/22/2023 Education - [place] 10/22/2023 Active Problems Noted Date Diagnosed Date [facility] Education - [facility] 10/22/2023 Education - [place] 10/22/2023 Active Problems Noted Date Diagnosed Date [facility] Education - [facility] 10/22/2023 Education - [place] 10/22/2023 Additional Source Comments INFORMATION SOURCE (unrecogn ized section and content) DATE CREATED AUTHOR 06/07/2019 [facility] DATE CREATED AUTHOR AUTHOR'S ORGANIZ ATION 11/24/2021 [facility] DATE CREATED AUTHOR AUTHOR'S ORGANIZ ATION 11/10/2022 [facility] ([place] DATE CREATED AUTHOR AUTHOR'S ORGANIZ ATION 08/20/2025 [facility] DATE CREATED AUTHOR AUTHOR'S ORGANIZ ATION 08/23/2025 [facility] Source Comments (unrecognize d section and content) In the event this informatio n is protected by the Federal Confidentiality of Alcohol and Drug Abuse Patient Records regulations: The Federal rules restrict any use of the information to criminally investigate or prosecute any alcohol or drug abuse patient.[facility] the event this information is protected by the Federal Confidentiality of Alcohol and Drug Abuse Patient Records regulations: The Federal rules restrict any use of the information to criminally investigate or prosecute any alcohol or drug abuse patient.[facility] the event this information is protected by the Federal Confidentiality of Alcohol and Drug Abuse Patient Records regulations: The Federal rules restrict any use of the information to criminally investigate or prosecute any alcohol or drug abuse patient.[facility] the event this information is protected by the Federal Confidentiality of Alcohol and Drug Abuse Patient Records regulations: The Federal rules restrict any use of the information to criminally investigate or prosecute any alcohol or drug abuse patient.[facility]In the event this information is protected by the Federal Confidentiality of Alcohol and Drug Abuse Patient Records regulations: The Federal rules restrict any use of the information to criminally investigate or prosecute any alcohol or drug abuse patient.[facility] NorthIn the event this information is protected by the Federal Confidentiality of Alcohol and Drug Abuse Patient Records regulations: The Federal rules restrict any use of the information to criminally investigate or prosecute any alcohol or drug abuse patient.[facility] NorthIn the event this information is protected by the Federal Confidentiality of Alcohol and Drug Abuse Patient Records regulations: The Federal rules restrict any use of the information to criminally investigate or prosecute any alcohol or drug abuse patient.[facility] NorthIn the event this information is protected by the Federal Confidentiality of Alcohol and Drug Abuse Patient Records regulations: The Federal rules restrict any use of the information to criminally investigate or prosecute any alcohol or drug abuse patient.[facility] NorthIn the event this information is protected by the Federal Confidentiality of Alcohol and Drug Abuse Patient Records regulations: The Federal rules restrict any use of the information to criminally investigate or prosecute any alcohol or drug abuse patient.[facility] NorthIn the event this information is protected by the Federal Confidentiality of Alcohol and Drug Abuse Patient Records regulations: The Federal rules restrict any use of the information to criminally investigate or prosecute any alcohol or drug abuse patient.[facility] NorthIn the event this information is protected by the Federal Confidentiality of Alcohol and Drug Abuse Patient Records regulations: The Federal rules restrict any use of the information to criminally investigate or prosecute any alcohol or drug abuse patient.[facility] NorthIn the event this information is protected by the Federal Confidentiality of Alcohol and Drug Abuse Patient Records regulations: The Federal rules restrict any use of the information to criminally investigate or prosecute any alcohol or drug abuse patient.[facility] NorthIn the event this information is protected by the Federal Confidentiality of Alcohol and Drug Abuse Patient Records regulations: The Federal rules restrict any use of the information to criminally investigate or prosecute any alcohol or drug abuse patient.[facility] NorthIn the event this information is protected by the Federal Confidentiality of Alcohol and Drug Abuse Patient Records regulations: The Federal rules restrict any use of the information to criminally investigate or prosecute any alcohol or drug abuse patient.[facility] NorthIn the event this information is protected by the Federal Confidentiality of Alcohol and Drug Abuse Patient Records regulations: The Federal rules restrict any use of the information to criminally investigate or prosecute any alcohol or drug abuse patient.[facility] NorthIn the event this information is protected by the Federal Confidentiality of Alcohol and Drug Abuse Patient Records regulations: The Federal rules restrict any use of the information to criminally investigate or prosecute any alcohol or drug abuse patient.[facility] NorthIn the event this information is protected by the Federal Confidentiality of Alcohol and Drug Abuse Patient Records regulations: The Federal rules restrict any use of the information to criminally investigate or prosecute any alcohol or drug abuse patient.[facility] [place] NorthIn the event this information is protected by the Federal Confidentiality of Alcohol and Drug Abuse Patient Records regulations: The Federal rules restrict any use of the information to criminally investigate or prosecute any alcohol or drug abuse patient.[facility] [place] NorthIn the event this information is protected by the Federal Confidentiality of Alcohol and Drug Abuse Patient Records regulations: The Federal rules restrict any use of the information to criminally investigate or prosecute any alcohol or drug abuse patient.[facility] [place] NorthIn the event this information is protected by the Federal Confidentiality of Alcohol and Drug Abuse Patient Records regulations: The Federal rules restrict any use of the information to criminally investigate or prosecute any alcohol or drug abuse patient.[facility] [place] NorthIn the event this information is protected by the Federal Confidentiality of Alcohol and Drug Abuse Patient Records regulations: The Federal rules restrict any use of the information to criminally investigate or prosecute any alcohol or drug abuse patient.[facility] the event this information is protected by the Federal Confidentiality of Alcohol and Drug Abuse Patient Records regulations: The Federal rules restrict any use of the information to criminally investigate or prosecute any alcohol or drug abuse patient.[facility] NorthIn the event this information is protected by the Federal Confidentiality of Alcohol and Drug Abuse Patient Records regulations: The Federal rules restrict any use of the information to criminally investigate or prosecute any alcohol or drug abuse patient.[facility] [place] NorthIn the event this information is protected by [...] or prosecute any alcohol or drug abuse patient.[facility] [place] NorthIn the event this information is protected by the Federal Confidentiality of Alcohol and Drug Abuse Patient Records regulations: The Federal rules restrict any use of the information to criminally investigate or prosecute any alcohol or drug abuse patient.[facility] NorthIn the event this information is protected by the Federal Confidentiality of Alcohol and Drug Abuse Patient Records regulations: The Federal rules restrict any use of the information to criminally investigate or prosecute any alcohol or drug abuse patient.[facility] NorthIn the event this information is protected by the Federal Confidentiality of Alcohol and Drug Abuse Patient Records regulations: The Federal rules restrict any use of the information to criminally investigate or prosecute any alcohol or drug abuse patient.[facility] [place] NorthIn the event this information is protected by the Federal Confidentiality of Alcohol and Drug Abuse Patient Records regulations: The Federal rules restrict any use of the information to criminally investigate or prosecute any alcohol or drug abuse patient.[facility] [place] NorthIn the event this information is protected by the Federal Confidentiality of Alcohol and Drug Abuse Patient Records regulations: The Federal rules restrict any use of the information to criminally investigate or prosecute any alcohol or drug abuse patient.[facility] [place] NorthIn the event this information is protected by the Federal Confidentiality of Alcohol and Drug Abuse Patient Records regulations: The Federal rules restrict any use of the information to criminally investigate or prosecute any alcohol or drug abuse patient.[facility] [place] NorthIn the event this information is protected by the Federal Confidentiality of Alcohol and Drug Abuse Patient Records regulations: The Federal rules restrict any use of the information to criminally investigate or prosecute any alcohol or drug abuse patient.[facility] [place] NorthIn the event this information is protected by the Federal Confidentiality of Alcohol and Drug Abuse Patient Records regulations: The Federal rules restrict any use of the information to criminally investigate or prosecute any alcohol or drug abuse patient.[facility] [place] NorthIn the event this information is protected by the Federal Confidentiality of Alcohol and Drug Abuse Patient Records regulations: The Federal rules restrict any use of the information to criminally investigate or prosecute any alcohol or drug abuse patient.[facility] [place] NorthIn the event this information is protected by the Federal Confidentiality of Alcohol and Drug Abuse Patient Records regulations: The Federal rules restrict any use of the information to criminally investigate or prosecute any alcohol or drug abuse patient.[facility] [place] NorthIn the event this information is protected by the Federal Confidentiality of Alcohol and Drug Abuse Patient Records regulations: The Federal rules restrict any use of the information to criminally investigate or prosecute any alcohol or drug abuse patient.[facility] [place] NorthIn the event this information is protected by the Federal Confidentiality of Alcohol and Drug Abuse Patient Records regulations: The Federal rules restrict any use of the information to criminally investigate or prosecute any alcohol or drug abuse patient.[facility] [place] NorthIn the event this information is protected by the Federal Confidentiality of Alcohol and Drug Abuse Patient Records regulations: The Federal rules restrict any use of the information to criminally investigate or prosecute any alcohol or drug abuse patient.[facility] [place] NorthIn the event this information is protected by the Federal Confidentiality of Alcohol and Drug Abuse Patient Records regulations: The Federal rules restrict any use of the information to criminally investigate or prosecute any alcohol or drug abuse patient.[facility] [place] NorthIn the event this information is protected by the Federal Confidentiality of Alcohol and Drug Abuse Patient Records regulations: The Federal rules restrict any use of the information to criminally investigate or prosecute any alcohol or drug abuse patient.[facility] [place] NorthIn the event this information is protected by the Federal Confidentiality of Alcohol and Drug Abuse Patient Records regulations: The Federal rules restrict any use of the information to criminally investigate or prosecute any alcohol or drug abuse patient.[facility] [place] NorthIn the event this information is protected by the Federal Confidentiality of Alcohol and Drug Abuse Patient Records regulations: The Federal rules restrict any use of the information to criminally investigate or prosecute any alcohol or drug abuse patient.[facility] [place] NorthIn the event this information is protected by the Federal Confidentiality of Alcohol and Drug Abuse Patient Records regulations: The Federal rules restrict any use of the information to criminally investigate or prosecute any alcohol or drug abuse patient.[facility] [place] NorthIn the event this information is protected by the Federal Confidentiality of Alcohol and Drug Abuse Patient Records regulations: The Federal rules restrict any use of the information to criminally investigate or prosecute any alcohol or drug abuse patient.[facility] [place] NorthIn the event this information is protected by the Federal Confidentiality of Alcohol and Drug Abuse Patient Records regulations: The Federal rules restrict any use of the information to criminally investigate or prosecute any alcohol or drug abuse patient.[facility] [place] NorthIn the event this information is protected by the Federal Confidentiality of Alcohol and Drug Abuse Patient Records regulations: The Federal rules restrict any use of the information to criminally investigate or prosecute any alcohol or drug abuse patient.[facility] [place] NorthIn the event this information is protected by the Federal Confidentiality of Alcohol and Drug Abuse Patient Records regulations: The Federal rules restrict any use of the information to criminally investigate or prosecute any alcohol or drug abuse patient.[facility] [place] NorthIn the event this information is protected by the Federal Confidentiality of Alcohol and Drug Abuse Patient Records regulations: The Federal rules restrict any use of the information to criminally investigate or prosecute any alcohol or drug abuse patient.[facility] [place] NorthIn the event this information is protected by the Federal Confidentiality of Alcohol and Drug Abuse Patient Records regulations: The Federal rules restrict any use of the information to criminally investigate or prosecute any alcohol or drug abuse patient.[facility] [place] NorthIn the event this information is protected by the Federal Confidentiality of Alcohol and Drug Abuse Patient Records regulations: The Federal rules restrict any use of the information to criminally investigate or prosecute any alcohol or drug abuse patient.[facility] [place] NorthIn the event this information is protected by the Federal Confidentiality of Alcohol and Drug Abuse Patient Records regulations: The Federal rules restrict any use of the information to criminally investigate or prosecute any alcohol or drug abuse patient.[facility] [place] NorthIn the event this information is protected by the Federal Confidentiality of Alcohol and Drug Abuse Patient Records regulations: The Federal rules restrict any use of the information to criminally investigate or prosecute any alcohol or drug abuse patient.[facility] [place] NorthIn the event this information is protected by the Federal Confidentiality of Alcohol and Drug Abuse Patient Records regulations: The Federal rules restrict any use of the information to criminally investigate or prosecute any alcohol or drug abuse patient.[facility] [place] NorthIn the event this information is protected by the Federal Confidentiality of Alcohol and Drug Abuse Patient Records regulations: The Federal rules restrict any use of the information to criminally investigate or prosecute any alcohol or drug abuse patient.[facility] [place] NorthIn the event this information is protected by the Federal Confidentiality of Alcohol and Drug Abuse Patient Records regulations: The Federal rules restrict any use of the information to criminally investigate or prosecute any alcohol or drug abuse patient.[facility] [place] NorthIn the event this information is protected by the Federal Confidentiality of Alcohol and Drug Abuse Patient Records regulations: The Federal rules restrict any use of the information to criminally investigate or prosecute any alcohol or drug abuse patient.[facility] [place] NorthIn the event this information is protected by the Federal Confidentiality of Alcohol and Drug Abuse Patient Records regulations: The Federal rules restrict any use of the information to criminally investigate or prosecute any alcohol or drug abuse patient.[facility] [place] NorthIn the event this information is protected by the Federal Confidentiality of Alcohol and Drug Abuse Patient Records regulations: The Federal rules restrict any use of the information to criminally investigate or prosecute any alcohol or drug abuse patient.[facility] [place] NorthIn the event this information is protected by the Federal Confidentiality of Alcohol and Drug Abuse Patient Records regulations: The Federal rules restrict any use of the information to criminally investigate or prosecute any alcohol or drug abuse patient.[facility] NorthIn the event this information is protected by the Federal Confidentiality of Alcohol and Drug Abuse Patient Records regulations: The Federal rules restrict any use of the information to criminally investigate or prosecute any alcohol or drug abuse patient.[facility] [place] NorthIn the event this information is protected by the Federal Confidentiality of Alcohol and Drug Abuse Patient Records regulations: The Federal rules restrict any use of the information to criminally investigate or prosecute any alcohol or drug abuse patient.[facility] [place] NorthIn the event this information is protected by the Federal Confidentiality of Alcohol and Drug Abuse Patient Records regulations: The Federal rules restrict any use of the information to criminally investigate or prosecute any alcohol or drug abuse patient.[facility] [place] NorthIn the event this information is protected by the Federal Confidentiality of Alcohol and Drug Abuse Patient Records regulations: The Federal rules restrict any use of the information to criminally investigate or prosecute any alcohol or drug abuse patient.[facility] [place] NorthIn the event this information is protected by the Federal Confidentiality of Alcohol and Drug Abuse Patient Records regulations: The Federal rules restrict any use of the information to criminally investigate or prosecute any alcohol or drug abuse patient.[facility] [place] NorthIn the event this information is protected by the Federal Confidentiality of Alcohol and Drug Abuse Patient Records regulations: The Federal rules restrict any use of the information to criminally investigate or prosecute any alcohol or drug abuse patient.[facility] [place] NorthIn the event this information is protected by the Federal Confidentiality of Alcohol and Drug Abuse Patient Records regulations: The Federal rules restrict any use of the information to criminally investigate or prosecute any alcohol or drug abuse patient.[facility] [place] NorthIn the event this information is protected by the Federal Confidentiality of Alcohol and Drug Abuse Patient Records regulations: The Federal rules restrict any use of the information to criminally investigate or prosecute any alcohol or drug abuse patient.[facility] [place] NorthIn the event this information is protected by the Federal Confidentiality of Alcohol and Drug Abuse Patient Records regulations: The Federal rules restrict any use of the information to criminally investigate or prosecute any alcohol or drug abuse patient.[facility] [place] NorthIn the event this information is protected by the Federal Confidentiality of Alcohol and Drug Abuse Patient Records regulations: The Federal rules restrict any use of the information to criminally investigate or prosecute any alcohol or drug abuse patient.[facility] NorthIn the event this information is protected by the Federal Confidentiality of Alcohol and Drug Abuse Patient Records regulations: The Federal rules restrict any use of the information to criminally investigate or prosecute any alcohol or drug abuse patient.[facility] [place] NorthIn the event this information is protected by the Federal Confidentiality of Alcohol and Drug Abuse Patient Records regulations: The Federal rules restrict any use of the information to criminally investigate or prosecute any alcohol or drug abuse patient.[facility] the event this information is protected by the Federal Confidentiality of Alcohol and Drug Abuse Patient Records regulations: The Federal rules restrict any use of the information to criminally investigate or prosecute any alcohol or drug abuse patient.[facility] NorthIn the event this information is protected by the Federal Confidentiality of Alcohol and Drug Abuse Patient Records regulations: The Federal rules restrict any use of the information to criminally investigate or prosecute any alcohol or drug abuse patient.[facility] [place] NorthIn the event this information is protected by [...] or prosecute any alcohol or drug abuse patient.[facility] [place] NorthIn the event this information is protected by the Federal Confidentiality of Alcohol and Drug Abuse Patient Records regulations: The Federal rules restrict any use of the information to criminally investigate or prosecute any alcohol or drug abuse patient.[facility] [place] NorthIn the event this information is protected by the Federal Confidentiality of Alcohol and Drug Abuse Patient Records regulations: The Federal rules restrict any use of the information to criminally investigate or prosecute any alcohol or drug abuse patient.[facility] [place] NorthIn the event this information is protected by the Federal Confidentiality of Alcohol and Drug Abuse Patient Records regulations: The Federal rules restrict any use of the information to criminally investigate or prosecute any alcohol or drug abuse patient.[facility] [place] NorthIn the event this information is protected by the Federal Confidentiality of Alcohol and Drug Abuse Patient Records regulations: The Federal rules restrict any use of the information to criminally investigate or prosecute any alcohol or drug abuse patient.[facility] [place] NorthIn the event this information is protected by the Federal Confidentiality of Alcohol and Drug Abuse Patient Records regulations: The Federal rules restrict any use of the information to criminally investigate or prosecute any alcohol or drug abuse patient.[facility] [place] NorthIn the event this information is protected by the Federal Confidentiality of Alcohol and Drug Abuse Patient Records regulations: The Federal rules restrict any use of the information to criminally investigate or prosecute any alcohol or drug abuse patient.[facility] [place] NorthIn the event this information is protected by the Federal Confidentiality of Alcohol and Drug Abuse Patient Records regulations: The Federal rules restrict any use of the information to criminally investigate or prosecute any alcohol or drug abuse patient.[facility] [place] NorthIn the event this information is protected by the Federal Confidentiality of Alcohol and Drug Abuse Patient Records regulations: The Federal rules restrict any use of the information to criminally investigate or prosecute any alcohol or drug abuse patient.[facility] Reason for Visit (unrecogniz ed section and [...] Referred By Katy hermosillo Referred To Contact [facility] Diagnoses Nexplanon removal Procedures NEXPLANON REMOVAL REMOVAL NON-BIODEGRADABLE DRUG DELIVERY IMPLANT Berta Eldridge APRN.[facility] [address] [place] [address] [facility] [address] [place] [address] Referral ID Status Reason Start Date Expiration Date Visits Requested Visits Authorized [id number] Authorized Auto-Generat ed Referral 08/14/2022 09/10/2022 2 [...] Referred By Contac t Referred To Contact [facility] [facility] Diagnoses 12 weeks gestation of Encounter for supervision of normal first in first trimester Procedures OBSTETRIC ULTRASOUND WHI US PREG UTERUS AFTER 1ST TRIMEST GESTATION Urban Burnett MD [address] [place] [address] [facility] [address] [place] [address] Referral ID Status Reason Start Date Expiration Date V isits Requested Visits Authorized [id number] Closed Auto-Generate d Referral 11/17/2023 11/16/2024 1 1 Reason Onset Date Comments Care 01/05/2024 Reason Onset Date Comments Care 02/02/2024 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 Reason Onset Date Comments Care 02/17/2024 Reason Comments Letter Reason Onset Date Comments Refill Request 03/01/2024 Reason Onset Date Comments Care 03/16/2024 Reason Onset Date Comments Care 03/31/2024 Specialty Diagnoses / Procedures Referred By Contac t Referred To Contact [facility] Diagnoses Supervision of high risk in third trimester 31 weeks gestation of Procedures OBSTETRIC ULTRASOUND WHI US PREG UTERUS AFTER 1ST TRIMEST GESTATION Berta Eldridge APRN.[facility] [address] [place] [address] [facility] [address] [place] [address] Referral ID Status Reason Start Date Expiration Date V isits Requested Visits Authorized [id number] Closed Auto-Generate d Referral 03/31/2024 03/31/2025 5 [...] Elevated TSH Procedures CONSULT TO ENDOCRINOLOGY OFFICE/OUTPATIENT [facility] 60 MINUTES Reagan Campos ANVIL WORKER.COST CONSULTANT [address] [place] [address] Phone: tel: fax:[phone] Outpatient Referral [address] [address] Referral ID Status Reason Start Date Expiration Date V isits Requested Visits Authorized [id number] Closed PCP Requested Referral 11/11/2024 10/11/2025 1 1 Reason Comments Cough MILAD ear pain, stuffy nose x 2 daysPossible yeast infection, odor, itching, discharge x 3 weeks Reason Comments Problem Visit Reason Comments Orders Reason Comments Thyroid Problem Reason Comments Nexplanon removal Specialty Diagnoses / Procedures Referred By Contac t Referred To Contact [facility] Diagnoses Nexplanon removal Procedures NEXPLANON REMOVAL REMOVAL NON-BIODEGRADABLE DRUG DELIVERY IMPLANT Binta Carcamo APRN.CNM [address] [place] [address] Phone: tel: fax:[phone] [facility] [address] [place] [address] Referral ID Status Reason Start Date Expiration Date V isits Requested Visits Authorized [id number] Closed Auto-Generate d Referral 03/10/2025 03/10/2026 1 1 Reason Comments Vomiting Vomiting x 1 day Reason Comments Physical Annual Physical Reason Onset Date Comments Refill Request 05/29/2025 Care Teams (unrecognized sec tion and content) Gun Sealing Machine Operator Relationship Specialty Start Date End Date Elsa Bro MD [address] [place] [address] PCP - General Internal Medicine 03/01/21 Gun Sealing Machine Operator Relationship Specialty Start Date End Date Elsa Bro MD [address] [facility] [place] [address] PCP - General Internal Medicine 03/01/21 Gun Sealing Machine Operator Relationship Specialty Start Date End Date Elsa Bro MD [address] [place] [address] PCP - General Internal Medicine 03/01/21 Gun Sealing Machine Operator Relationship Specialty Start Date End Date Elsa Bro MD [address] [facility] [place] [address] PCP - General Internal Medicine 03/01/21 Gun Sealing Machine Operator Relationship Specialty Start Date End Date Elsa Bro MD [address] [facility] [place] [address] PCP - General Internal Medicine 03/01/21 Gun Sealing Machine Operator Relationship Specialty Start Date End Date Elsa Bro MD [address] [facility] [place] [address] PCP - General Internal Medicine 03/01/21 Gun Sealing Machine Operator Relationship Specialty Start Date End Date Elsa Bro MD [address] [place] [address] PCP - General Internal Medicine 03/01/21 Gun Sealing Machine Operator Relationship Specialty Start Date End Date Elsa Bro MD [address] [facility] [place] [address] PCP - General Internal Medicine 03/01/21 Gun Sealing Machine Operator Relationship Specialty Start Date End Date Elsa Bro MD [address] [facility] [place] [address] PCP - General Internal Medicine 03/01/21 Gun Sealing Machine Operator Relationship Specialty Start Date End Date Elsa Bro MD [address] [facility] [place] [address] PCP - General Internal Medicine 03/01/21 Gun Sealing Machine Operator Relationship Specialty Start Date End Date Elsa Bro MD [address] [place] [address] PCP - General Internal Medicine 03/01/21 Team Status: Active Member Role Status Dates Amarilis Berry ANTHROPOLOGICAL LINGUIST, ANTHROPOLOGICAL LINGUIST-C Family Provider Active Elsa CASTELLANOS MD Primary [...] Active Member Role Status Dates Amarilis Berry ANTHROPOLOGICAL LINGUIST, ANTHROPOLOGICAL LINGUIST-C Family Provider Active Dr. Elsa Bro MD Primary Care Provider Active Team Status: Inactive Member Role Status Dates Elsa CASTELLANOS MD Primary Care Provider Active Dr. Luis Enrique Bautista DO Attending Provider, Emergency Pr ovider Active Team Status: Inactive Member Role Status Dates Dr. Robert Draper DO Emergency Provider Active Dr. Elsa Bro MD Primary Care Provider Active Gun Sealing Machine Operator Relationship Specialty Start Date End Date Elsa Bro MD [address] [place] [address] PCP - General Internal Medicine 03/01/21 Gun Sealing Machine Operator Relationship Specialty Start Date End Date Elsa Bro MD [address] [place] [address] PCP - General Internal Medicine 03/01/21 Gun Sealing Machine Operator Relationship Specialty Start Date End Date Elsa Bro MD [address] [place], [place] [address] PCP - General Internal Medicine 03/01/21 Gun Sealing Machine Operator Relationship Specialty Start Date End Date Elsa Bro MD [address] [place], [place] [address] PCP - General Internal Medicine 03/01/21 Gun Sealing Machine Operator Relationship Specialty Start Date End Date Elsa Bro MD [address] [place] [address] PCP - General Internal Medicine 03/01/21 Gun Sealing Machine Operator Relationship Specialty Start Date End Date Elsa Bro MD [address] [place] [address] PCP - General Internal Medicine 03/01/21 Gun Sealing Machine Operator Relationship Specialty Start Date End Date Elsa Bro MD [address] [place] [address] PCP - General Internal Medicine 03/01/21 Gun Sealing Machine Operator Relationship Specialty Start Date End Date Elsa Bro MD [address] [place] [address] PCP - General Internal Medicine 03/01/21 Gun Sealing Machine Operator Relationship Specialty Start Date End Date Elsa Bro MD [address] [place] [address] PCP - General Internal Medicine 03/01/21 Gun Sealing Machine Operator Relationship Specialty Start Date End Date Elsa Bro MD [address] [place] [address] PCP - General Internal Medicine 03/01/21 Gun Sealing Machine Operator Relationship Specialty Start Date End Date Elsa Bro MD [address] [place] [address] PCP - General Internal Medicine 03/01/21 Gun Sealing Machine Operator Relationship Specialty Start Date End Date Elsa Bro MD [address] [place] [address] PCP - General Internal Medicine 03/01/21 Gun Sealing Machine Operator Relationship Specialty Start Date End Date Elsa Bro MD [address] [place] [address] PCP - General Internal Medicine 03/01/21 Gun Sealing Machine Operator Relationship Specialty Start Date End Date Elsa Bro MD [address] [place] [address] PCP - General Internal Medicine 03/01/21 Gun Sealing Machine Operator Relationship Specialty Start Date End Date Elsa Bro MD [address] [place] [address] PCP - General Internal Medicine 03/01/21 Gun Sealing Machine Operator Relationship Specialty Start Date End Date Elsa Bor MD [address] [place] [address] PCP - General Internal Medicine 03/01/21 Gun Sealing Machine Operator Relationship Specialty Start Date End Date Elsa Bro MD [address] [place] [address] PCP - General Internal Medicine 03/01/21 Gun Sealing Machine Operator Relationship Specialty Start Date End Date Elsa Bro MD [address] [place] [address] PCP - General Internal Medicine 03/01/21 Gun Sealing Machine Operator Relationship Specialty Start Date End Date Elsa Bro MD [address] [place] [address] PCP - General Internal Medicine 03/01/21 Gun Sealing Machine Operator Relationship Specialty Start Date End Date Elsa Bro MD [address] [facility] [place] [address] PCP - General Internal Medicine 03/01/21 Gun Sealing Machine Operator Relationship Specialty Start Date End Date Elsa Bro MD [address] [facility] [place] [address] PCP - General Internal Medicine 03/01/21 Gun Sealing Machine Operator Relationship Specialty Start Date End Date Elsa Bro MD [address] [facility] [place] [address] PCP - General Internal Medicine 03/01/21 Gun Sealing Machine Operator Relationship Specialty Start Date End Date Elsa Bro MD [address] [facility] [place] [address] PCP - General Internal Medicine 03/01/21 Gun Sealing Machine Operator Relationship Specialty Start Date End Date Elsa Bro MD [address] [facility] [place] [address] PCP - General Internal Medicine 03/01/21 Gun Sealing Machine Operator Relationship Specialty Start Date End Date Elsa Bro MD [address] [facility] [place] [address] PCP - General Internal Medicine 03/01/21 Gun Sealing Machine Operator Relationship Specialty Start Date End Date Elsa Bro MD [address] [facility] [place] [address] PCP - General Internal Medicine 03/01/21 Gun Sealing Machine Operator Relationship Specialty Start Date End Date Elsa Bro MD [address] [facility] [place] [address] PCP - General Internal Medicine 03/01/21 Maylin Mcfarlane PA-C [address] [place] [address] Painting Department Supervisor Family Medicine 09/18/24 Kelli Boyle APRN.COST CONSULTANT [address] [place] [address] Painting Department Supervisor Internal Medicine 09/18/24 Ibis Dunne PA-C [address] [place] [address] Painting Department Supervisor Family Medicine 09/18/24 Gun Sealing Machine Operator Relationship Specialty Start Date End Date Elsa Bro MD [address] [place] [address] PCP - General Internal Medicine 03/01/21 Maylin Mcfarlane PA-C [address] [place] [address] Painting Department Supervisor Family Medicine 09/18/24 Kelli Boyle APRN.COST CONSULTANT [address] [place] [address] Painting Department Supervisor Internal Medicine 09/18/24 Ibis Dunne PA-C [address] [place] [address] Painting Department Supervisor Family [facility] 09/18/24 Gun Sealing Machine Operator Relationship Specialty Start Date End Date Elsa Bro MD [address] [place] [address] PCP - General Internal Medicine 03/01/21 Maylin Mcfarlane PA-C [address] [place] [address] Painting Department Supervisor Family Medicine 09/18/24 Kelli Boyle APRN.COST CONSULTANT [address] [place] [address] Painting Department Supervisor Internal Medicine 09/18/24 Ibis Dunne PA-C [address] [place] [address] [facility] 09/18/24 Gun Sealing Machine Operator Relationship Specialty Start Date End Date Elsa Bro MD [address] [place] [address] PCP - General Internal Medicine 03/01/21 Maylin Mcfarlane PA-C [address] [place] [address] [facility] 09/18/24 Kelli Boyle APRN.COST CONSULTANT [address] [place] [address] [facility] Internal Medicine 09/18/24 Ibis Dunne PA-C [address] [place] [address] [facility] 09/18/24 Gun Sealing Machine Operator Relationship Specialty Start Date End Date Elsa Bro MD [address] [place] [address] PCP - General Internal Medicine 03/01/21 Maylin Mcfarlane PA-C [address] [place] [address] [facility] Family Medicine 09/18/24 Kelli Boyle APRN.COST CONSULTANT [address] [facility] [place] [address] Painting Department Supervisor Internal Medicine 09/18/24 Ibis Dunne PA-C [address] [facility] [place] [address] Painting Department Supervisor Family Medicine 09/18/24 Gun Sealing Machine Operator Relationship Specialty Start Date End Date Elsa Bro MD [address] [facility] [place] [address] PCP - General Internal Medicine 03/01/21 Maylin Mcfarlane PA-C [address] [place] [address] Painting Department Supervisor Family Medicine 09/18/24 Kelli Boyle APRN.COST CONSULTANT [address] [facility] [place] [address] Painting Department Supervisor Internal Medicine 09/18/24 Ibis Dunne PA-C [address] [facility] [place] [address] Painting Department Supervisor Family Medicine 09/18/24 Gun Sealing Machine Operator Relationship Specialty Start Date End Date Elsa Bro MD [address] [facility] [place] [address] PCP - General Internal Medicine 03/01/21 Maylin Mcfarlane PA-C [address] [place] [address] Painting Department Supervisor Family Medicine 09/18/24 Kelli Boyle APRN.COST CONSULTANT [address] [facility] [place] [address] Painting Department Supervisor Internal Medicine 09/18/24 Ibis Dunne PA-C [address] [place] [address] Painting Department Supervisor Family [facility] 09/18/24 Gun Sealing Machine Operator Relationship Specialty Start Date End Date Elsa Bro MD [address] [place] [address] PCP - General Internal Medicine 03/01/21 Kelli Boyle APRN.COST CONSULTANT [address] [place] [address] Painting Department Supervisor Internal Medicine 09/18/24 Gun Sealing Machine Operator Relationship Specialty Start Date End Date Elsa Bro MD [address] [place] [address] PCP - General Internal Medicine 03/01/21 Kelli Boyle APRN.COST CONSULTANT [address] [place] [address] Painting Department Supervisor Internal Medicine 09/18/24 Gun Sealing Machine Operator Relationship Specialty Start Date End Date Elsa Bro MD [address] [place] [address] PCP - General Internal Medicine 03/01/21 Kelli Boyle, ANVIL WORKER.COST CONSULTANT [address] [place] [address] Painting Department Supervisor Internal Medicine 09/18/24 Gun Sealing Machine Operator Relationship Specialty Start Date End Date Elsa Bro MD [address] [place] [address] PCP - General Internal Medicine 03/01/21 [place], Kelli, ANVIL WORKER.COST CONSULTANT [address] [facility] [place] [address] Painting Department Supervisor Internal Medicine 09/18/24 Gun Sealing Machine Operator Relationship Specialty Start Date End Date Elsa Bro MD [address] [facility] [place] [address] PCP - General Internal Medicine 03/01/21 Kelli Boyle ANVIL WORKER.COST CONSULTANT [address] [facility] [place] [address] Painting Department Supervisor Internal Medicine 09/18/24 Gun Sealing Machine Operator Relationship Specialty Start Date End Date Elsa Bro MD [address] [facility] [place] [address] PCP - General Internal Medicine 03/01/21 Kelli Boyle, ANVIL WORKER.COST CONSULTANT [address] [facility] [place] [address] Painting Department Supervisor Internal Medicine 09/18/24 Gun Sealing Machine Operator Relationship Specialty Start Date End Date Elsa Bro MD [address] [place] [address] PCP - General Internal Medicine 03/01/21 Kelli Boyle, ANVIL WORKER.COST CONSULTANT [address] [facility] [place] [address] Painting Department Supervisor Internal Medicine 09/18/24 Gun Sealing Machine Operator Relationship Specialty Start Date End Date Elsa Bro MD [address] [facility] [place] [address] PCP - General Internal Medicine 03/01/21 Kelli Boyle APRN.COST CONSULTANT [address] [place] [address] [facility] Internal Medicine 09/18/24 Team Status: Active Member Role/Relationship Status Dates No Primary Care Physician Primary Care Provider Active Team Status: Inactive Member Role/Relationship Status Dates Dr. Tremayne Quiñonez MD Emergency Provider Active S tart: April 15, 2025 End: April 15, 2025 No Primary Care Physician Primary Care Provider Active Start: April 15, 2025 End: April 15, 2025 Gun Sealing Machine Operator Relationship Specialty Start Date End Date Elsa Bro MD [address] [place], [place] [address] PCP - General Internal Medicine 03/01/21 Kelli Boyle APRN.COST CONSULTANT [address] [place] [address] [facility] Internal Medicine 09/18/24 Goals (unrecognized section [...] Physician Member Role: Attending Physician Address: Address: [facility] [address] [place], [place] [address] Care Team Related Persons Name: ESPERANZA RUCKER [...] BE BASED ON THE PRIMARY CLINICAL RECORDS. [facility] [employer] [facility]. provides no warranty or guarantee of the accuracy or completeness of information in this document.
--- NOTE | 2025-09-09 14:24 | CT_ITS ---
PROCEDURE: ABDOMEN/PELVIS W IV CONT ONLY 09/09/2025 REASON FOR EXAM: ABD PAIN, DIFFUSE TECHNIQUE: Procedure Code: [id number] Modality: CT Procedure: ABDOMEN/PELVIS W IV CONT ONLY Coronal and Sagittal reconstruction series were provided. CONTRAST: Isovue 370 VOLUME: 100 mL One or more dose reduction techniques were used (e.g., Automated exposure control, adjustment of the mA and/or kV according to patient size, use of iterative reconstruction technique. RADIATION DOSE SUMMARY: CTDlvol: 17.96 mGy DLP: 904.83 mGycm COMPARISON: CT abdomen pelvis dated 08/18/2025. FINDINGS: Lung bases: Clear. Liver: Hepatomegaly. No mass. Gallbladder: Normal. Spleen: Normal. Pancreas: Normal. Adrenals: Normal. Kidneys: Multiple nonobstructive nephrolithiasis noted within the left kidney. No suspicious solid mass. No hydronephrosis. 4 mm distal right ureteral stone with upstream hydroureteronephrosis. The previously identified right kidney lower pole 4 mm stone is no longer visualized in Situ. Bladder: Normal Reproductive Organs: Normal uterine size and contour. No adnexal mass. Bowel: No hiatal hernia. The stomach appears unremarkable. No small bowel obstruction. Appendix is visualized in the right lower quadrant, unremarkable. No colitis. No proctitis. Lymph nodes: No suspicious lymph node enlargement. Vasculature: The abdominal aorta and IVC are normal. Peritoneum / Retroperitoneum: Small volume free fluid in the pelvis nonspecific and usually physiologic in a female patient of this age. Bones: No acute osseous abnormality. No suspicious osseous lesion. CT/Abdomen/Pelvis W IV Cont ONLY IMPRESSION: 4 mm distal right ureteral stone with upstream hydroureteronephrosis. The ston e is previously identified in the right kidney lower pole. Additional nonobstructive nephrolithiasis in the left kidney. Hepatomegaly. Reading Location: [facility]
[2025-09-09] MEDS: 0.9% Normal Saline (1000mL) 1,000 ML 999 ML IV (14:38)
[2025-09-09 14:39] LABS: Hematocrit 39.0 % (37-47); Hemoglobin 13.0 g/dL (12.0-15.0); Immature Granulocytes Count 0.060 X10^3/uL (0.0-0.0); Mean Corp Hgb Conc 33.3 g/dL (32-36); Mean Corpuscular Volume 91.1 fL (81-99); Mean Platelet Vol. 10.8 fl (6.2-12.0); NRBC Flagged by Analyzer 0 % (0-5); Platelet Count 352 K/mm3 (150-450); RBC Distribution Width CV 13.2 % (11.6-14.6); RBC Distribution Width SD 43.5 fl (35.1-43.9); Red Blood Count 4.28 M/mm3 (4.2-5.4); White Blood Count 10.9 K/mm3 (4.4-11.0)
[2025-09-09] MEDS: DiphenhydrAMINE 50 MG/ML Syringe 25 MG IV (14:39)
[2025-09-09 14:52] LABS: Mucous, Urine 0 SEEN /hpf (<or=2+)
[2025-09-09 14:54] LABS: Color, Urine Yellow (Yellow); Glucose, Dipstick Normal (Normal); Ketone-Dipstick Negative (Negative); Leukocyte Esterase-Dipstick 25 /ul (Negative); Nitrite-Dipstick Negative (Negative); Occult Blood-Urine 250 /ul (Negative); Protein-Dipstick 30 mg/dl (Negative); Specific Gravity, Urine 1.010 (1.002-1.030); Urine Bilirubin Dipstick Negative (Negative)
[2025-09-09 14:55] LABS: Internal QC Validated? YES +Cl - CLEAR BKGD; Pregnancy, Urine Negative Negative; Record Kit Lot#,Urine Preg 980607
[2025-09-09 15:02] LABS: Red Blood Cells-Urine 25-50 SEEN /hpf (0-5); Squamous Epithelial Cells - UA 0-5 SEEN /hpf (5-10)
[2025-09-09 15:05] LABS: AST(SGOT) 28 U/L (<=31); Alanine Aminotransfer ALT/SGPT 52 U/L (<=34); Albumin, Serum 5.0 g/dL (3.5-5.0); Alkaline Phosphatase 85 U/L (35-104); Anion Gap 16 (5-15); BUN 8 mg/dL (4-19); BUN/Creat Ratio 10.5 RATIO (10-20); Calcium,Total 10.1 mg/dL (7.6-11.0); Carbon Dioxide 26.3 mmol/L (21.0-32.0); Chloride 96 mmol/L (98-108); Estimated Creatinine Clearance 122.06 ml/min (50-250); Globulin 3.1 g/dL (2.2-4.2); Glucose 127 mg/dL (70-99); Lipase 18 U/L (13-75); Potassium 3.5 mmol/L (3.3-5.1)
--- NOTE | 2025-09-09 15:18 | ED.VIS.GI ---
HPI HPI - GI History of Present Illness Chief Complaint: Abd Pain Narrative Narrative: Patient is a 25-year-old female presenting to the emergency department for abdominal pain, nausea and vomiting. Patient has a past medical history of on and off abdominal pain, elevated total bilirubin, acute hepatitis and daily marijuana use. Patient has been here multiple times for similar complaints. States that she went on a cruise over the past week. States that she started having symptoms on Thursday. States she is having diffuse abdominal pain and bilateral lower back pain. Endorses nausea with nonbloody, nonbilious emesis. Denies fever or chills. Denies chest pain or shortness of breath. Denies dysuria or hematuria. Last menstrual period was about 3 weeks ago. States that she has previously had diarrhea with episodes but this has resolved. [facility] Medical History Nexplanon insertion Acute blood loss anemia atony of uterus with hemorrhage Severe preeclampsia Trauma PTSD (post-traumatic stress disorder) Anxiety Depression Pre-eclampsia History of pneumonia History of substance abuse Asthma Home Medications ?Medication ?Instructions ?Recorded ?Last Taken ?Type capsaicin 0.025 % topical cream 1 applic topical TID #50 grams 08/22/25 Unknown Rx metoclopramide HCl 10 mg tablet 10 mg PO Q6H PRN nausea and 08/22/25 Unknown Rx (Reglan) vomiting #20 tabs ondansetron 4 mg disintegrating 4 mg PO Q8H PRN PRN Nausea #10 tabs 08/24/25 Unknown Rx tablet prazosin 1 mg capsule 1 mg PO QHS dizziness 08/24/25 Unknown History valacyclovir 1 gram tablet 1,000 mg PO DAILY 08/24/25 Unknown History prochlorperazine maleate 5 mg 5 mg PO TID PRN nausea and 09/09/25 Unknown Rx tablet (Compazine) vomiting #14 tabs Allergy/AdvReac Type Severity Reaction Status Date / Time amoxicillin (Amoxicillin) Allergy NOT SURE, Verified 09/09/25 13:44 WAS A BABY lavender (Lavandula Allergy Rash Verified 09/09/25 13:44 angustifolia) metoclopramide AdvReac Severe lock jaw Verified 09/09/25 13:44 Family History Mother Depression Substance abuse Brother Depression Grandfather Substance abuse Social History Smoking Status: Current every day smoker tobacco type: e-cigarettes Tobacco: How many years used: 4 alcohol intake: former year quit: 2016 substance use type: former substance user 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 use: 04/09/18 and methamphetamine what type of physical activity do you participate in: yoga, aerobics and weight training frequency: 1-2 times per week ROS ROS ED ROS Narrative see HPI EXAM Physical Exam Narrative Exam Narrative: Vital signs: Reviewed General: Alert and oriented x 3. No acute distress. Well-appearing, nontoxic. HEENT: Head is normocephalic and atraumatic, sinuses nontender, pupils equal round and reactive. Nares are patent. Oropharynx and throat exams normal. Neck: Supple without lymphadenopathy nontender Cardiovascular: Regular rate and rhythm, no murmurs. No rubs or gallops. Normal S1 and S2 Respiratory: Clear to auscultation bilaterally. No wheezes, rales, rhonchi Abdominal: Soft and nontender to palpation. Normal bowel sounds. No guarding or rebound. Nonsurgical abdomen. No CVA tenderness to palpation. Extremities: No tenderness. No bruising. Normal range of motion. Normal sensation. Skin: No rash or redness. The rest of the physical exam is unremarkable Const Vital Signs: 09/09/25 13:42 09/09/25 15:42 Temperature 98.3 F 99.5 F H Temperature Source Oral Oral Pulse Rate 111 H 81 Respiratory Rate 16 18 Blood Pressure 159/99 H 114/62 Blood Pressure Mean 119 79 Pulse Ox 97 92 Oxygen Delivery Method Room Air Room Air MDM MDM MDM Narrative Medical decision making narrative: Patient is a 25-year-old female presenting to the emergency department for 1 week of abdominal discomfort, nausea and vomiting. Patient was seen and examined. Vitals are stable. Patient resting in bed comfortably no acute distress. Differential includes but is not limited to: Cannabis hyperemesis syndrome, gastroenteritis, less likely cholecystitis, pancreatitis, colitis given no localized pain Patient given fluids, Compazine and Benadryl. States has been taking Zofran at home with no relief of her symptoms. Reports that she has a allergy to Reglan which included dystonic reaction. CBC with no leukocytosis and a normal hemoglobin. CMP with no significant abnormalities. Mildly elevated ALT of 52 but this has been seen previously and is actually much improved from prior. Normal total bilirubin. Lipase within normal limits. Urinalysis 2+ bacteria however no other signs of urinary tract infection. And she is asymptomatic. Urine is negative. Patient reevaluated at approximately 3:40 PM and states she is feeling much better after the fluids and medications. Notified her that we are waiting on the results of the CT scan. Patient signed out to oncoming physician pending CT results. I anticipate discharge. Will prescribe Compazine for home to use as needed for nausea and vomiting. Instructed her to take Benadryl with this to prevent dystonic reaction as she had with Reglan. Will refer her to GI given chronic abdominal pain as well. Recommended cessation of marijuana which I think is likely a component of her symptoms. Clinical impression Abdominal pain Nausea and vomiting History & Record Review Discussion w/independent historian: Patient Additional record(s) reviewed:: Prior ED visit and Prior labs Lab Data Attestation: I reviewed the patient's lab results. Labs: Laboratory Results - last 24 hr 09/09/25 09/09/25 14:13 14:45 WBC 10.9 RBC 4.28 Hgb 13.0 Hct 39.0 MCV 91.1 MCH 30.4 MCHC 33.3 RDW Std Deviation 43.5 RDW Coeff of Jus 13.2 Plt Count 352 MPV 10.8 Immature Gran % (Auto) 0.600 Neut % (Auto) 84.2 H Lymph % (Auto) 10.3 L [place] % (Auto) 4.4 Eos % (Auto) 0.1 Baso % (Auto) 0.4 Absolute Neuts (auto) 9.2 H Absolute Lymphs (auto) 1.12 Nucleated RBC % 0 Sodium 138 Potassium 3.5 Chloride 96 L Carbon Dioxide 26.3 Anion Gap 16 H BUN 8 Creatinine 0.72 Estim Creat Clear Calc 122.06 Est GFR (MDRD) Non-Af 117 BUN/Creatinine Ratio 10.5 Glucose 127 H Calcium 10.1 Total Bilirubin 0.69 AST 28 ALT 52 H Alkaline Phosphatase 85 Total Protein 8.0 Albumin 5.0 Globulin 3.1 Albumin/Globulin Ratio 1.6 Lipase 18 Urine Color Yellow Urine Clarity Sl. Cloudy Urine pH 6.5 Ur Specific [place] 1.010 Urine Protein 30 H Urine Glucose (UA) Normal Urine Ketones Negative Urine Occult Blood 250 H Urine Nitrite Negative Urine Bilirubin Negative Urine Urobilinogen 1 H Ur Leukocyte Esterase 25 H Urine RBC 25-50 SEEN Urine WBC 0-5 SEEN Ur Squamous Epith Cells 0-5 SEEN Urine Bacteria 2+ Urine Mucus 0 SEEN Urine Test Negative Discharge Plan Triage Chief Complaint: Abd Pain ED Provider: Sara Horne Dx/Rx/DC Orders Clinical Impression: Abdominal pain, Nausea and vomiting, Asymptomatic bacteriuria Instructions: Cannabis Hyperemesis Syndrome, Abdominal Pain Prescriptions: New prochlorperazine maleate [Compazine] 5 mg tablet 5 mg PO TID PRN (Reason: nausea and vomiting) Qty: 14 0RF No Action prazosin 1 mg capsule 1 mg PO QHS valacyclovir 1 gram tablet 1,000 mg PO DAILY ondansetron 4 mg tablet,disintegrating 4 mg PO Q8H PRN PRN (Reason: Nausea) Qty: 10 0RF metoclopramide HCl [Reglan] 10 mg tablet 10 mg PO Q6H PRN (Reason: nausea and vomiting) Qty: 20 0RF capsaicin 0.025 % cream 1 applic topical TID Qty: 50 0RF Rx Instructions: do not wash area for at least 30 min after application Primary Care Provider: Sofiya Bro Referrals: Sofiya Bro MD [Primary Care Provider, Internal Medicine] - As soon as possible FriendDank DO [Med Staff - Active Staff, Gastroenterology] - As soon as possible Activity Restrictions/Additional Instructions: I provided you with GI follow-up if you continue to have symptoms. I prescribed you Compazine for home, you can take Benadryl with this to prevent any reaction. Please abstain from using marijuana. Your evaluation in the Emergency Department did not reveal any acute reason for admission. However, I want to emphasize that you may be early in the course of a disease process or illness even if it is not present. For this reason you should follow-up within 24 hours for reevaluation with either your primary care physician or if necessary back here in the Emergency Department. You should return to the Emergency Department immediately if your symptoms worsen or new symptoms develop. Print Language: [place]
[2025-09-09 15:42] VITALS: BP 114/62; PULSE 81; RESP 18; TEMP 37.5; O2SAT 92
[2025-09-09 16:36] VITALS: BP 116/60; PULSE 88; RESP 18; TEMP 37.2; O2SAT 96
[2025-09-09 17:00] VITALS: BP 98/60; PULSE 87; RESP 18; TEMP 36.8; O2SAT 98
[2025-09-09 18:30] VITALS: BP 127/80; PULSE 65; RESP 18; TEMP 36.9; O2SAT 100
== END 2025-09-09 18:36 | disposition home or self-care (01) ==
PROVIDERS: Emergency Provider Student in an Organized Health Care Education/Training Program; PCP Internal Medicine; Visit Provider Student in an Organized Health Care Education/Training Program
DX: R10.9 Unspecified abdominal pain (principal); R11.2 Nausea with vomiting, unspecified; R82.71 Bacteriuria; Z79.899 Other long term (current) drug therapy; F17.290 Nicotine dependence, other tobacco product, uncomplicated
CPT/HCPCS: 74177; 80053; 81001; 81025; 83690; 85025; 96361; 96374; 99283; Q9967; A4216

== ENCOUNTER 2025-09-15 13:07 | Emergency (ER) | payer MEDICAID, SELFPAY ==
[2025-09-15 13:08] VITALS: BP 134/65; PULSE 93; RESP 16; TEMP 35.2; O2SAT 100; BMI 32.3
[2025-09-15 13:59] VITALS: TEMP 39
[2025-09-15] MEDS: 0.9% Normal Saline (1000mL) 1,000 ML 1000 ML IV (14:02)
--- NOTE | 2025-09-15 14:15 | EDS_ITS ---
HPI History of Present Illness Chief Complaint: Headache Narrative Narrative: Pt is a 25-year-old female who is presenting to the ER with chief complaint of right sided headache, nausea, vomiting multiple times at work today. Patient is having myalgia, arthralgia. Patient has been to the ER multiple times the last several weeks for various complaints. Patient does have a PCP. When I asked patient if she called her PCP for her illness, she looked and laughed. Patient stated that her symptoms brought her to the ER today. Patient's headache was not the worse headache of her life, not sudden onset, not thunderclap in nature. No chest pain or shortness of breath. Positive myalgia or arthralgia, no acute complaints. Patient does have a temperature of 102. No significant sinus congestion, dry cough is positive. REVIEW OF SYSTEMS: Unless otherwise stated in this report the patient's positive and negative responses for review of systems for constitutional, eyes, ENT, cardiovascular, respiratory, gastrointestinal, neurological, , musculoskeletal, and integument systems and related systems to the presenting problem are either stated in the history of present illness or were not pertinent or were negative for the symptoms and/or complaints related to the presenting medical problem. Nurse's notes and vital signs reviewed. The patient is not hypoxic. Vital signs reviewed and patient is not hypoxic. General: The patient appears well and in no apparent distress. Patient is resting comfortably on cart. Not toxic, lethargic, or listless. Skin: Warm, dry, no pallor noted. There is no rash noted. Head: Normocephalic, atraumatic; no tenderness to palpation to bilateral frontal or maxillary sinuses, patient has no midline or paracervical tenderness to palpation. Patient has full range of motion of cervical spine with no difficulty. No meningeal signs or symptoms. Eye: Normal conjunctiva, no drainage, EOMI. PERRL. Ears, Nose, Mouth, and Throat: oral mucosa is moist. Nares patent. Mouth without vesicles. Patient has clear drainage noted to the posterior pharynx, minimal cobblestoning noted. No unilateral swelling. No other intraoral pathology. Cardiovascular: Regular Rate and Rhythm, no murmurs, gallops, or rubs Respiratory: Patient is in no distress, no accessory muscle use, lungs are clear to auscultation, no wheezing, rales or rhonchi Back: non-tender, no CVA tenderness bilaterally to percussion. NO CTLS midline or paraspinal tenderness to palpation. GI: Soft, no tenderness to palpation, no masses appreciated. No rebound, guarding, or rigidity noted. Musculoskeletal: The patient has full range of motion of all extremities and joints with no difficulty. Patient has no motor, no sensory deficits. Neurological: A&O x4, normal speech, no focal neurological deficits. Psychiatric: [facility] Medical History Nexplanon insertion Acute blood loss anemia atony of uterus with hemorrhage Severe preeclampsia Trauma PTSD (post-traumatic stress disorder) Anxiety Depression Pre-eclampsia History of pneumonia History of substance abuse Asthma Home Medications ?Medication ?Instructions ?Recorded ?Last Taken ?Type capsaicin 0.025 % topical cream 1 applic topical TID # 50 grams 08/22/25 Unknown Rx metoclopramide HCl 10 mg tablet 10 mg PO Q6H PRN nause a and 08/22/25 Unknown Rx (Reglan) vomiting #20 tabs ondansetron 4 mg disintegrating 4 mg PO Q8H PRN PRN Na usea #10 tabs 08/24/25 Unknown Rx tablet prazosin 1 mg capsule 1 mg PO QHS dizziness Unknown History valacyclovir 1 gram tablet 1,000 mg PO DAILY 08/24/25 Unknown History hydrocodone-acetaminophen 5-325mg 1 tab PO Q6H PRN PRN Pain 3 days 09/09/25 Unknown Rx 5mg-325mg #10 TABLETS prochlorperazine maleate 5 mg 5 mg PO TID PRN nausea a nd 09/09/25 Unknown Rx tablet (Compazine) vomiting #14 tabs ondansetron 4 mg disintegrating 4 mg PO Q8H PRN PRN Na usea #10 tabs 09/15/25 Unknown Rx tablet promethazine 25 mg rectal 25 mg RECTAL Q6H PRN PRN Mohit sea ##6 09/15/25 Unknown Rx suppository (Promethegan) Allergy/AdvReac Type Severity Reaction Status Date / Time amoxicillin (Amoxicillin) Allergy NOT SURE, Verified 09/15/25 13:10 WAS A BABY lavender (Lavandula Allergy Rash Verified 09/15/25 13:10 angustifolia) metoclopramide AdvReac Severe lock jaw Verified 09/15/25 13:10 Family History Mother Depression Substance abuse Brother Depression Grandfather Substance abuse Social History Smoking Status: Current every day smoker tobacco type: e-cigarettes Tobacco: How many years used: 4 alcohol intake: former year quit: 2015 substance use type: former substance user 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 use: 04/09/18 and methamphetamine what type of physical activity do you participate in: yoga, aerobics and weight training frequency: 1-2 times per week EXAM Physical Exam Const Vital Signs: 09/15/25 13:08 09/15/25 13:59 09/15/25 15:30 Temperature 95.3 F L 102.2 F H 98.3 F Temperature Source Temporal Oral Pulse Rate 93 88 Respiratory Rate 16 16 Blood Pressure 134/65 H 128/70 H Blood Pressure Mean 88 89 Pulse Ox 100 98 Oxygen Delivery Method Room Air MDM MDM MDM Narrative Medical decision making narrative: Patient felt much better after IV fluids and nausea medication. COVID, influenza are negative. Urine shows no acute findings. Patient was given Tylenol for fever. Patient was given IV fluids, IV Toradol. Patient states that she is not , no weight is she and does not want to be tested. Patient will follow-up with PCP. Work note given. Patient sent home with oral Zofran and Phenergan suppositories. Patient felt much better after initial dose of Zofran and IV fluids. Lab Data Labs: Laboratory Results - last 24 hr 09/15/25 09/15/25 14:05 15:15 Urine Color Yellow Urine Clarity Clear Urine pH 7.0 Ur Specific [place] 1.015 Urine Protein Negative Urine Glucose (UA) Normal Urine Ketones Negative Urine Occult Blood Negative Urine Nitrite Negative Urine Bilirubin Negative Urine Urobilinogen Normal Ur Leukocyte Esterase Negative Urine RBC 0 SEEN Urine WBC 0-5 SEEN Ur Squamous Epith Cells 0 SEEN Urine Bacteria RARE Urine Mucus 0 SEEN Urine Test Negative Discharge Plan Triage Chief Complaint: Headache ED Provider: Ethan Alejandro Dx/Rx/DC Orders Clinical Impression: Headache, Flu-like symptoms, Febrile illness Instructions: Understanding Headache Pain, ED FUO Adult, ED Viral Syndrome (Ad ult) Prescriptions: New promethazine [Promethegan] 25 mg suppository 25 mg RECTAL Q6H PRN PRN (Reason: Nausea) Qty: 6 0RF ondansetron 4 mg tablet,disintegrating 4 mg PO Q8H PRN PRN (Reason: Nausea) Qty: 10 0RF Continued ondansetron 4 mg tablet,disintegrating 4 mg PO Q8H PRN PRN (Reason: Nausea) Qty: 10 0RF No Action prazosin 1 mg capsule 1 mg PO QHS valacyclovir 1 gram tablet 1,000 mg PO DAILY prochlorperazine maleate [Compazine] 5 mg tablet 5 mg PO TID PRN (Reason: nausea and vomiting) Qty: 14 0RF hydrocodone-acetaminophen 5-325 mg tablet 1 tab PO Q6H PRN PRN (Reason: Pain) 3 Days Qty: 10 0RF metoclopramide HCl [Reglan] 10 mg tablet 10 mg PO Q6H PRN (Reason: nausea and vomiting) Qty: 20 0RF capsaicin 0.025 % cream 1 applic topical TID Qty: 50 0RF Rx Instructions: do not wash area for at least 30 min after application Stand Alone Forms: ED Work / School Excuse Primary Care Provider: Sofiya Bro Referrals: Sofiya Bro MD [Primary Care Provider, Internal Medicine] Activity Restrictions/Additional Instructions: Use [id number] DayQuil, NyQuil, Flonase daily. Use Mucinex DM as needed as well. Alternate Tylenol and either Motrin, Advil, or ibuprofen every 4 hours to help with fever, chills, myalgia, arthralgia or pain. Use zinc, vitamin D3, vitamin C to help build immune system and help fight in fection as well. Increase fluids, Gatorade, or Powerade daily for the next 3 to 5 days. Print Language: [place] Disposition Disposition: Home, Self Care Discharge Date/Time: 09/15/25 15:33
[2025-09-15 14:21] LABS: Mucous, Urine 0 SEEN /hpf (<or=2+); Red Blood Cells-Urine 0 SEEN /hpf (0-5); Squamous Epithelial Cells - UA 0 SEEN /hpf (5-10)
[2025-09-15 14:28] LABS: Color, Urine Yellow (Yellow); Glucose, Dipstick Normal (Normal); Ketone-Dipstick Negative (Negative); Leukocyte Esterase-Dipstick Negative /ul (Negative); Nitrite-Dipstick Negative (Negative); Occult Blood-Urine Negative /ul (Negative); Protein-Dipstick Negative (Negative); Specific Gravity, Urine 1.015 (1.002-1.030); Urine Bilirubin Dipstick Negative (Negative)
[2025-09-15 15:25] LABS: Internal QC Validated? YES +Cl - CLEAR BKGD; Pregnancy, Urine Negative Negative
[2025-09-15 15:30] VITALS: BP 128/70; PULSE 88; RESP 16; TEMP 36.8; O2SAT 98
== END 2025-09-15 15:33 | disposition home or self-care (01) ==
PROVIDERS: Emergency Provider Emergency Medicine; PCP Internal Medicine; Visit Provider Emergency Medicine
DX: R51.9 Headache, unspecified (principal); F17.290 Nicotine dependence, other tobacco product, uncomplicated; R50.9 Fever, unspecified
CPT/HCPCS: 81001; 81025; 87631; 96361; 96374; 99282; A4216

== ENCOUNTER 2025-09-18 07:07 | Emergency (ER) | payer MEDICAID, SELFPAY ==
[2025-09-18 07:08] VITALS: BP 128/65; PULSE 96; RESP 16; TEMP 36.3; O2SAT 98; BMI 32.3
--- NOTE | 2025-09-18 07:23 | EX.ED.DYSGE1 ---
HPI History of Present Illness Chief Complaint: Other, Pain/Inj Informant: patient Narrative Narrative: Patient is a 25-year-old female with a history of genital herpes presenting with acute onset of multiple labial lesions and significant swelling. - Reports onset of multiple small labial lesions yesterday, with progressive swelling throughout the night. - Denies recent physical contact with others' lips; does report sharing smoking materials with others. - Has a history of similar lesions, but not as severe as this episode. - Currently on valacyclovir 1 g daily for genital herpes, but stopped taking it a week ago due to emesis and difficulty swallowing the large pills. - Applied Abreva last night. Denies known allergy to Abreva but wondering if that is what this is. [facility] Medical History Nexplanon insertion Acute blood loss anemia atony of uterus with hemorrhage Severe preeclampsia Trauma PTSD (post-traumatic stress disorder) Anxiety Depression Pre-eclampsia History of pneumonia History of substance abuse Asthma Home Medications ?Medication ?Instructions ?Recorded ?Last Taken ?Type capsaicin 0.025 % topical cream 1 applic topical TID #50 grams 08/22/25 Unknown Rx metoclopramide HCl 10 mg tablet 10 mg PO Q6H PRN nausea and 08/22/25 Unknown Rx (Reglan) vomiting #20 tabs ondansetron 4 mg disintegrating 4 mg PO Q8H PRN PRN Nausea #10 tabs 08/24/25 Unknown Rx tablet prazosin 1 mg capsule 1 mg PO QHS dizziness 08/24/25 Unknown History valacyclovir 1 gram tablet 1,000 mg PO DAILY 08/24/25 Unknown History hydrocodone-acetaminophen 5-325mg 1 tab PO Q6H PRN PRN Pain 3 days 09/09/25 Unknown Rx 5mg-325mg #10 TABLETS prochlorperazine maleate 5 mg 5 mg PO TID PRN nausea and 09/09/25 Unknown Rx tablet (Compazine) vomiting #14 tabs ondansetron 4 mg disintegrating 4 mg PO Q8H PRN PRN Nausea #10 tabs 09/15/25 Unknown Rx tablet promethazine 25 mg rectal 25 mg RECTAL Q6H PRN PRN Nausea ##6 09/15/25 Unknown Rx suppository (Promethegan) acyclovir 5 % topical cream 1 applic topical 5X/DAY 4 days #5 09/18/25 Unknown Rx (Zovirax) grams Allergy/AdvReac Type Severity Reaction Status Date / Time amoxicillin (Amoxicillin) Allergy NOT SURE, Verified 09/18/25 07:08 WAS A BABY lavender (Lavandula Allergy Rash Verified 09/18/25 07:08 angustifolia) metoclopramide AdvReac Severe lock jaw Verified 09/18/25 07:08 Family History Mother Depression Substance abuse Brother Depression Grandfather Substance abuse Social History Smoking Status: Current every day smoker tobacco type: e-cigarettes Tobacco: How many years used: 4 alcohol intake: former year quit: 2016 substance use type: former substance user 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 use: 04/09/18 and methamphetamine what type of physical activity do you participate in: yoga, aerobics and weight training frequency: 1-2 times per week ROS ROS ED Constitutional Constitutional ED: Denies chills or fever(s) Eyes Eyes: Denies change in vision or diplopia ENT ENT ED: Denies rhinorrhea or sore throat Cardiovascular Cardiovascular: Denies chest pain or palpitations Respiratory/Chest Respiratory/Chest: Denies cough or dyspnea Gastrointestinal Gastrointestinal: Denies abdominal pain, diarrhea, nausea or vomiting Genitourinary Genitourinary ED: Denies dysuria or hematuria Musculoskeletal Musculoskeletal: Denies back pain or neck pain Integumentary Reports rash; Denies abscess Neurologic Neurologic: Denies headache(s), paresthesias or weakness Psychiatric Psychiatric: Denies anxiety or suicidal thoughts EXAM Physical Exam Const Vital Signs: 09/18/25 07:08 09/18/25 07:13 Temperature 97.4 F L Temperature Source Temporal Pulse Rate 96 Respiratory Rate 16 Respiratory Pattern Normal Blood Pressure 128/65 H Blood Pressure Mean 86 Pulse Ox 98 Oxygen Delivery Method Room Air Positive well nourished and well developed General Appearance ED: well developed and NAD HEENT Reports moist mucous membranes HEENT Narrative: Cluster of white discolored oral cold sores left lower lip on the vermilion as well as the border, the mucosa is for the most part spared, there is swelling here but no fluctuance or major tenderness. A little bit crusting on 1 part of it but no discharge expressible. normocephalic and atraumatic Eyes PERRL and EOMs intact bilaterally Neck full ROM and supple Resp normal respiratory effort Extremity normal to inspection General Extremety ED: Negative for tenderness Neuro oriented x3, CN's II-XII intact bilaterally and no sensory deficits noted Sensorium / Orientation: awake and alert Motor Exam: strength 5/5 throughout Skin no wounds MDM MDM MDM Narrative Medical decision making narrative: Assessment: The patient is a 25-year-old female with PMH of genital herpes presenting for acute swelling and vesicular eruption of the left lower lip. Exam shows a mildly tender, non-fluctuant cluster confined to the left lower lip without signs of abscess or need for drainage. Given the appearance and history of medication lapse, this represents a recurrence of herpes labialis rather than an abscess. Plan: - Prescribed valacyclovir 2000 mg PO twice today, then resume 1000 mg PO daily suppressive dosing. - Prescribed acyclovir 5% topical cream for lip application as directed. - Discharged home once medications arranged; patient called ride. Portions of this note were generated using voice recognition software (V[employer] Dictation). I have reviewed the contents and every effort has been made to ensure accuracy; however, inadvertent errors in grammar, spelling, punctuation, or word choice may occur, that were not noted before signing the document and should not alter the intended clinical meaning. Discharge Plan Triage Chief Complaint: Other, Pain/Inj ED Provider: Janusz Glover Dx/Rx/DC Orders Clinical Impression: Recurrent herpes labialis Instructions: ED Cold Sore (Adult) Prescriptions: New acyclovir [Zovirax] 5 % cream 1 applic topical 5X/DAY 4 Days Qty: 5 0RF No Action prazosin 1 mg capsule 1 mg PO QHS valacyclovir 1 gram tablet 1,000 mg PO DAILY ondansetron 4 mg tablet,disintegrating 4 mg PO Q8H PRN PRN (Reason: Nausea) Qty: 10 0RF prochlorperazine maleate [Compazine] 5 mg tablet 5 mg PO TID PRN (Reason: nausea and vomiting) Qty: 14 0RF hydrocodone-acetaminophen 5-325 mg tablet 1 tab PO Q6H PRN PRN (Reason: Pain) 3 Days Qty: 10 0RF promethazine [Promethegan] 25 mg suppository 25 mg RECTAL Q6H PRN PRN (Reason: Nausea) Qty: 6 0RF ondansetron 4 mg tablet,disintegrating 4 mg PO Q8H PRN PRN (Reason: Nausea) Qty: 10 0RF metoclopramide HCl [Reglan] 10 mg tablet 10 mg PO Q6H PRN (Reason: nausea and vomiting) Qty: 20 0RF capsaicin 0.025 % cream 1 applic topical TID Qty: 50 0RF Rx Instructions: do not wash area for at least 30 min after application Primary Care Provider: Sofiya Bro Referrals: Sofiya Bro MD [Primary Care Provider, Internal Medicine] - 3-5 Days if not improving Activity Restrictions/Additional Instructions: - Take valacyclovir (Valtrex) 2000 mg by mouth twice today (one-day course) for your current cold sore outbreak. - After today?s doses, resume valacyclovir 1000 mg by mouth once daily at night for ongoing suppression. - Apply the prescribed acyclovir cream to the affected area as directed. Print Language: Bulgarian Disposition Disposition: Home, Self Care
[2025-09-18 07:34] VITALS: BP 128/65; PULSE 96; RESP 16; TEMP 36.3; O2SAT 98
== END 2025-09-18 07:36 | disposition home or self-care (01) ==
LOC: ED 07:34
PROVIDERS: Emergency Provider Emergency Medicine; PCP Internal Medicine; Visit Provider Emergency Medicine
DX: B00.1 Herpesviral vesicular dermatitis (principal); Z79.899 Other long term (current) drug therapy; J45.909 Unspecified asthma, uncomplicated; F17.290 Nicotine dependence, other tobacco product, uncomplicated
CPT/HCPCS: 99282